=== PATIENT | male | born 1940 | race Asian ===

== ENCOUNTER 2019-04-29 08:09 | Outpatient (CLI) | payer MEDICARE, SELFPAY ==
--- NOTE | ~2019-04-29 | XR_ITS ---
XR abdomen/kub 1V DATE: 04/29/2019 08:35 INDICATION: Calcium kidney stone TECHNIQUE: AP projection, 2 views COMPARISON: 04/15/2019 KUB FINDINGS: There is no change of approximately 5 mm stone or stones overlying the lower pole of left k idney since 04/15/2019. Calcifications overlying the lower pole right kidney are less prominent compared to 04/15/2019 with mckeon ggestion of a small residual 2 mm calcification at this location. No apparent change of an approximat dino 3 mm faint calcification overlying the right renal hilar area or smaller faint linear calcificati on near right second lumbar vertebral right transverse process. There are 2 contiguous calcified phleboliths again noted overlying the right midabdomen. The psoas shadows are intact. No visceromegaly is evident. The bowel gas pattern is unremarkable, wit hout evidence of obstruction. Degenerative changes of the lumbar spine.. IMPRESSION: Diminished prominence of calcified calculus burden at lower pole of right kidney since Reviewed, dictated and finalized at [facility]. Reviewed, dictated and finalized at location B. EAR PROCESS ENGINEER IMPRESSION: Diminished prominence of calcified calculus burden at lower pole of right kidney since 04/15/2019
== END 2019-04-29 08:10 | disposition home or self-care (01) ==
LOC: ANHIMG 08:15
PROVIDERS: PCP Family Medicine; Visit Provider Urology
DX: N20.0 Calculus of kidney (principal)
CPT/HCPCS: 74018

== ENCOUNTER 2021-08-09 07:51 | Outpatient (CLI) | payer MEDICARE, SELFPAY ==
[2021-08-09 08:29] LABS: Alanine Aminotransferase 23 U/L (6-50); Albumin Level 3.9 g/dL (3.5-5.1); Alkaline Phosphatase 83 U/L (38-126); Anion Gap 4 mmol/L (8-16); Aspartate Amino Transferase 35 U/L (17-59); Bilirubin,Total 1.2 mg/dL (0.2-1.3); Blood Urea Nitrogen 12 mg/dL (9-20); Calcium 8.3 mg/dL (8.4-10.2); Carbon Dioxide 25 mmol/L (22-30); Chloride 106 mmol/L (98-107); Estimated Glomerular Filt Rate > 60; Glucose 94 mg/dL (65-110); Potassium 3.9 mmol/L (3.4-5.0); Sodium 135 mmol/L (137-145)
== END 2021-08-09 07:52 | disposition home or self-care (01) ==
LOC: ANHLAB 07:54
PROVIDERS: PCP Family Medicine; Visit Provider Family Medicine
DX: R73.09 Other abnormal glucose (principal); N20.0 Calculus of kidney; Z13.1 Encounter for screening for diabetes mellitus; E03.9 Hypothyroidism, unspecified
CPT/HCPCS: 36415; 80053

== ENCOUNTER 2022-03-27 14:50 | Outpatient (CLI) | payer MEDICARE, SELFPAY ==
--- NOTE | ~2022-03-27 | US_ITS ---
EXAMINATION: US abdomen limited DATE: 03/27/2022 15:35 INDICATION: Right upper quadrant abdominal pain. TECHNIQUE: Multiple grayscale and Doppler ultrasound images of the abdomen were obtained. COMPARISON: CT abdomen and pelvis 12/19/15 FINDINGS: The visualized portions of the head and body of the pancreas are normal. The liver is aisha l without focal lesion. There is normal flow in main portal vein. The gallbladder is contracted and c ontains a gallstone. No sonographic Ortega sign. The common duct is normal and measures 4 mm. IMPRESSION: 1. Cholelithiasis. No evidence of acute cholecystitis. Reviewed, dictated and finalized at location [facility]. LE HOUSE PUMPER
== END 2022-03-27 14:51 | disposition home or self-care (01) ==
PROVIDERS: PCP Family Medicine; Visit Provider Family Medicine
DX: R10.11 Right upper quadrant pain (principal); K80.20 Calculus of gallbladder without cholecystitis without obstruction
CPT/HCPCS: 76705

== ENCOUNTER 2022-04-04 10:48 | Outpatient (CLI) | payer MEDICARE, SELFPAY ==
[2022-04-04 11:18] LABS: Appearance Urine Clear (Clear); Bilirubin Urine Negative (Negative); Blood Urine Negative (Negative); Color Urine Yellow (Yellow); Glucose Urine UA Negative (Negative); Ketones Urine Negative (Negative); Leukocyte Esterase Ur Negative LEU/UL (Negative); Nitrate Urine Negative (Negative); Protein Urine Negative (Negative)
[2022-04-04 11:33] LABS: Mucus Urine Rare /lpf; RBC Urine 0-2 /hpf (0-2); Squamous Epithelial Cell Urine Rare /hpf (Few); WBC Urine 0-3 /hpf
[2022-04-04 11:42] LABS: Add Urine Microscopic? NO
== END 2022-04-04 10:49 | disposition home or self-care (01) ==
LOC: ANHLAB 10:50
PROVIDERS: PCP Family Medicine; Visit Provider Surgery
DX: R31.9 Hematuria, unspecified (principal)
CPT/HCPCS: 81003

== ENCOUNTER 2022-04-10 11:17 | Outpatient (CLI) | payer MEDICARE, SELFPAY ==
--- NOTE | ~2022-04-10 | CT_ITS ---
Non-contrast CT scan of the Abdomen and Pelvis Clinical indication: Abdominal pain Technique: 5 mm axial scans were obtained through the abdomen and pelvis without intravenous or oral contrast. Dose reduction technique was used on this scan by utilizing automated exposure control and iterative reconstruction technique. The dose-length product (DLP) was 348.10 mGy-cm. COMPARISON: 12/19/2015 Findings: Images through the lung bases reveal no abnormalities. The liver, spleen, pancreas, and adrenals appear normal. Nonobstructing bilateral renal stones are pr esent. Calcified gallstones are present. Distal abdominal aorta measures 3.1 cm in maximum diameter. There is marked, circumfemoral wall thickening of the cecum and ascending colon, with suggestion of p ossible associated large intraluminal mass. There is extensive pericolonic inflammatory change about this region. No abscess or free air. There is relative distention of the cecum, but small bowel loops are nondilated. There are probable mildly enlarged local pericolonic lymph nodes just medial to the cecum (axial image 68 for example). Images through the pelvis were performed. There is no evidence of ascites or lymphadenopathy. Urinary bladder unremarkable. Prostate gland and seminal vesicles are unremarkable. Impression: Marked wall thickening of the cecum and ascending colon with possible very subtly delineated large in traluminal mass. Findings are suspicious for colonic neoplasm/adenocarcinoma, although primary infect ious/inflammatory colitis is a potential alternative consideration. Mildly prominent pericecal lymph nodes. These could be reactive versus metastatic in nature. Relative distention of the cecum, but no small bowel loops are nondilated. Early large bowel obstruct ion with distended cecum is a potential consideration. Correlate with symptomatology. Cholelithiasis and bilateral nephrolithiasis. Reviewed, dictated and finalized at [facility]. COACH Impression: Marked wall thickening of the cecum and ascending colon with possible very subt ly delineated large intraluminal mass. Findings are suspicious for colonic neop lasm/adenocarcinoma, although primary infectious/inflammatory colitis is a pote ntial alternative consideration. Mildly prominent pericecal lymph nodes. These could be reactive versus metastat ic in nature. Relative distention of the cecum, but no small bowel loops are nondilated. Pierre y large bowel obstruction with distended cecum is a potential consideration. Co rrelate with symptomatology. Cholelithiasis and bilateral nephrolithiasis.
== END 2022-04-10 11:18 | disposition home or self-care (01) ==
PROVIDERS: PCP Family Medicine; Visit Provider Family Medicine
DX: R10.9 Unspecified abdominal pain (principal); R31.9 Hematuria, unspecified; Z85.038 Personal history of other malignant neoplasm of large intestine; K80.20 Calculus of gallbladder without cholecystitis without obstruction; N20.0 Calculus of kidney
CPT/HCPCS: 74176

== ENCOUNTER 2022-04-10 14:05 | Emergency (ER) | payer MEDICARE, SELFPAY ==
[2022-04-10 14:27] VITALS: BP 129/79; PULSE 83; RESP 18; TEMP 36.4; O2SAT 98
--- NOTE | 2022-04-10 16:59 | ED.ABDPAIN ---
HPI - Abdominal Pain General Chief Complaint: Abdominal Pain Stated Complaint: abnormal ct Time Seen by Provider: 04/10/22 16:59 Source: patient and family History of Present Illness HPI narrative: Patient is 81 years old Japanese male does not speak Croatian but having right abdominal pain for the last 3 weeks, had CT scan of the abdomen and pelvis ordered by his family physician today as outpatient which showed abnormality consistent with subtle not the left possible colon cancer. Patient had history of colon cancer, colon resection 1994 at [facility]. Patient denies any fever, chills, nausea, vomiting, diarrhea, constipation. Patient does not take medicine at home, does not smoke or drink or uses drugs. No history of allergy. Related Data Allergies Allergy/AdvReac Type Severity Reaction Status Date / Time No Known Allergies Allergy Unknown Verified 04/10/22 16:55 Review of Systems Review of Systems: All systems reviewed & are unremarkable except as noted in HPI and below PMFSH Past Medical History Medical History Achilles tendon tear Bilateral inguinal hernia H/O colon cancer, stage I Surgical History Surgical History H/O Achilles tendon repair H/O bilateral inguinal hernia repair History of colon resection Social History Social History Social History: Smoking status: Former smoker Tobacco type: cigarettes Second hand tobacco smoke exposure: No Smoking end date: 03/23/74 Alcohol intake: current Alcohol use details: Occasionally Substance use: never Substance use type: does not use Gender identity (if verbalized by the patient): Male Sexual Orientation (if Verbalized by the Patient): Straight or Heterosexual Exam Narrative: General appearance: Well-developed, well-nourished, patient does not look in pain or distress Skin: Normal color Head: Normocephalic, nontraumatic Eyes: Clear conjunctiva ENT: Oropharynx normal, ears normal, nose normal Neck: Supple, nontender Chest and respiratory: Airway patent, no respiratory distress, no accessory muscle use Heart: Regular rate/rhythm Abdomen: Soft, mild tenderness right mid abdomen, no guarding or rebound, no organomegaly, quiet bowel sounds Vascular: Normal peripheral pulses, normal capillary refill. Musculoskeletal: Normal range of motion, nontender back Neurologic: Alert and oriented ?3, SUPERVISOR ROAD ADMINISTRATOR is normal as tested, no gross motor deficit Course Consultations Consultation #1: DR SHANKAR Date: 04/10/22 Time: 18:03 Consultation #2: DR DON Patient can go home for outpatient colonoscopy on Thursday. Date: 04/10/22 Time: 18:03 Consultation #3: Dr. Kandy Rodriguez Date: 04/10/22 Time: 19:01 Vital Signs Vital signs: Vital Signs Temperature 36.4 C 04/10/22 14:27 Pulse Rate 83 04/10/22 14:27 Respiratory Rate 18 04/10/22 14:27 Blood Pressure 129/79 04/10/22 14:27 Pulse Oximetry 98 04/10/22 14:27 Oxygen Delivery Room Air 04/10/22 14:27 Temperature 36.4 C 04/10/22 14:27 Pulse Rate 83 04/10/22 14:27 Respiratory Rate 18 04/10/22 14:27 Blood Pressure 129/79 04/10/22 14:27 Pulse Oximetry 98 04/10/22 14:27 Oxygen Delivery Room Air 04/10/22 14:27 MDM - Abdominal Pain MDM Narrative Medical decision making narrative: Patient presents with CAT scan report showing possible colon cancer. History of colon cancer years ago, status postsurgery, possibly around 1994. Currently patient is not in pain or distress. Blood work-up today showed no significant abno
[2022-04-10 17:33] LABS: Basophils Percent Auto 0.4 % (0.2-1.2); Eosinophils Absolute Auto 0.1 K/mm3 (0-0.3); Eosinophils Percent Auto 0.6 % (0-4.4); Hematocrit 33.7 % (42.0-52.0); Hemoglobin 11.2 g/dL (14.0-18.0); Immature Granulocyte Absolute 0.04 K/mm3 (0.00-0.031); Immature Granulocyte Percent A 0.4 % (0-0.5); Lymphocytes Absolute Auto 1.81 K/mm3 (0.9-3.2); Mean Corpuscular HGB Conc 33.2 g/dl (32-36); Mean Corpuscular Hemoglobin 30.3 pg (26-34); Mean Corpuscular Volume 91.1 fl (80-100); Mean Platelet Volume 8.5 fl (7.4-10.4); Monocytes Absolute Auto 0.7 K/mm3 (0.1-0.6); Monocytes Percent Auto 6.9 % (2.6-8.5); Neutrophils Absolute Auto 6.9 K/mm3 (1.3-6.7); Neutrophils Percent Auto 72.7 % (45.5-73.1); Platelet Count Result 291 k/mm3 (150-375); Red Cell Distribution Width 13.8 % (11.5-14.5); White Blood Count 9.5 K/mm3 (4.5-10.0)
[2022-04-10] MEDS: SODIUM CHLORIDE 0.9% IV 1,000 ML 999 ML IV CONT (17:35)
[2022-04-10 17:46] LABS: Alanine Aminotransferase 25 U/L (6-50); Albumin Level 3.1 g/dL (3.5-5.1); Alkaline Phosphatase 83 U/L (38-126); Anion Gap 5 mmol/L (8-16); Aspartate Amino Transferase 32 U/L (17-59); Bilirubin,Total 0.6 mg/dL (0.2-1.3); Blood Urea Nitrogen 12 mg/dL (9-20); Calcium 7.7 mg/dL (8.4-10.2); Carbon Dioxide 27 mmol/L (22-30); Chloride 104 mmol/L (98-107); Estimated CRCL calculation 50 ml/min; Estimated Glomerular Filt Rate > 60; Glucose 100 mg/dL (65-110); Lactic Acid Reflex 2.1 mmol/L (0.7-2.0); Potassium 3.3 mmol/L (3.4-5.0); Sodium 136 mmol/L (137-145)
--- NOTE | 2022-04-10 17:50 | PC.NURSE ---
SPOKE WITH ANDREW DURAND'S DAUGHTER IN LAW AT [phone]. SHE STATES TO CALL IF ANY QUESTIONS OR CONCERNS
[2022-04-10 18:43] LABS: Appearance Urine Clear (Clear); Bilirubin Urine Negative (Negative); Blood Urine Negative (Negative); Color Urine Yellow (Yellow); Glucose Urine UA Negative (Negative); Ketones Urine Negative (Negative); Leukocyte Esterase Ur Negative LEU/UL (Negative); Nitrate Urine Negative (Negative); Protein Urine Negative (Negative); Specific Grav Ur 1.015 (1.001-1.035); pH Urine 6.5 (5.0-9.0)
[2022-04-10 19:02] LABS: Amorphous Sediment Urine Few; RBC Urine 0-2 /hpf (0-2); WBC Urine 0-3 /hpf
[2022-04-10 19:05] VITALS: BP 136/79; PULSE 70; RESP 16; O2SAT 100
[2022-04-10 19:16] LABS: Add Urine Microscopic? YES
[2022-04-10 20:30] LABS: Reflex Lactic Acid Yes or No Add Lactic
== END 2022-04-10 19:05 | disposition home or self-care (01) ==
PROVIDERS: Emergency Provider Emergency Medicine; PCP Family Medicine
DX: K63.89 Other specified diseases of intestine (principal); Z85.038 Personal history of other malignant neoplasm of large intestine; Z90.49 Acquired absence of other specified parts of digestive tract; Z87.891 Personal history of nicotine dependence
CPT/HCPCS: 36415; 74176; 80053; 81001; 83605; 85025; 96360; 99283; J7030

== ENCOUNTER 2022-04-14 00:15 | Day surgery (SDC) | payer MEDICARE, SELFPAY ==
[2022-04-11 11:27] VITALS: BMI 22.8
--- NOTE | 2022-04-11 11:33 | PM.HPGS ---
History of Present Illness History of Present Illness Consent: Risks, benefits, and alternatives have been discussed and questions answered. Patient agrees to proceed with procedure. Chief complaint: hx colon ca, abnormal radiology findings Narrative: Sterling Bryant is a 81 year old male with a history of colon cancer resected 13 years ago, has had abdominal pain for the past few weeks. A CT scan was done as an outpatient that showed: Marked wall thickening of the cecum and ascending colon with possible very subtly delineated large intraluminal mass. After was done, the patient was told by his primary care provider to go to the emergency room. The emergency room physician saw him, obtain blood work which was removed mostly within normal limits and apparently contacted surgery and Gastroenterology who all felt that he could be discharged to have his colonoscopy today Review of Systems Review of Systems: All systems reviewed & are unremarkable except as noted in HPI and below PMFSH Past Medical History Medical History Achilles tendon tear Bilateral inguinal hernia H/O colon cancer, stage I Surgical History Surgical History H/O Achilles tendon repair H/O bilateral inguinal hernia repair History of colon resection Social History Social History Social History: Smoking status: Former smoker Tobacco type: cigarettes Second hand tobacco smoke exposure: No Smoking end date: 03/23/74 Alcohol intake: current Alcohol use details: occasional Substance use: never Substance use type: does not use Living arrangements: with family Occupation/Education: retired Gender identity (if verbalized by the patient): Male Sexual Orientation (if Verbalized by the Patient): Straight or Heterosexual Spiritual care concerns: No Meds Home Medications and Allergies Home Medications Medication Instructions Recorded Confirmed Type dutasteride 0.5 mg capsule 0.5 mg PO DAILY #30 caps 04/10/22 04/11/22 Rx potassium chloride 20 mEq 20 meq PO BID #10 tabs 04/10/22 04/11/22 Rx tablet,extended release (K-Tab) tamsulosin 0.4 mg capsule 0.4 mg PO QHS #30 caps 04/10/22 04/11/22 Rx tramadol 50 mg tablet 50 mg PO Q6H PRN pain #20 tabs 04/10/22 04/11/22 Rx Allergies Allergy/AdvReac Type Severity Reaction Status Date / Time No Known Allergies Allergy Unknown Verified 04/11/22 12:49 Exam Const: General: alert Orientation/consciousness: patient oriented x3 Resp: Auscultation: clear to auscultation bilaterally Cardio: Rhythm: regular rhythm GI: GI Palp: Yes Soft to palpation and No Tenderness to palpation present (GI) Neuro: General: patient oriented x3 Assessment and Plan Assessment and plan (1) Abnormal CT of the abdomen: Code(s): R93.5 - Abnormal findings on diagnostic imaging of other abdominal regions, including retroperitoneum Status: Acute Assessment and Plan: Colonoscopy with possible biopsy or polypectomy or cautery or injection of substances.
[2022-04-14 12:13] VITALS: BP 117/74; PULSE 89; RESP 18; TEMP 36.6; O2SAT 100
[2022-04-14] MEDS: LACTATED RINGERS 1,000 ML 150 ML IV CONT (12:23)
--- NOTE | 2022-04-14 13:11 | WPDANESEPPF ---
Anes - Initial Pre Proc Eval Procedure: Operation Date: 04/14/22 13:30 Proposed Procedures p Colonoscopy - Jeramy Art MD Date/Time: 04/14/22 13:11 Surgeon: Jeramy Art MD Pre Op Diagnosis: hx colon ca, abnormal radiology findings Patient Data Age: 81 Gender: M Height: 1.73 m Weight: 66.2 kg Last Vital Signs Temp 97.8 F 04/14/22 12:13 Pulse 89 04/14/22 12:13 Resp 18 04/14/22 12:13 BP 117/74 04/14/22 12:13 Pulse Ox 100 04/14/22 12:13 O2 Del Method Room Air 04/14/22 12:13 Allergies Allergy/AdvReac Type Severity Reaction Status Date / Time No Known Allergies Allergy Unknown Verified 04/11/22 12:49 Home Medications Medication Instructions Recorded Confirmed Type dutasteride 0.5 mg capsule 0.5 mg PO DAILY #30 caps 04/10/22 04/11/22 Rx potassium chloride 20 mEq 20 meq PO BID #10 tabs 04/10/22 04/11/22 Rx tablet,extended release (K-Tab) tamsulosin 0.4 mg capsule 0.4 mg PO QHS #30 caps 04/10/22 04/11/22 Rx tramadol 50 mg tablet 50 mg PO Q6H PRN pain #20 tabs 04/10/22 04/11/22 Rx Patient hx anesthesia problems: none Family hx anesthesia problems: none Results Review: All pre-operative results and documents have been reviewed as part of the pre-operative evaluation. ON LICENSE OF [facility] Past Medical History Medical History Achilles tendon tear Bilateral inguinal hernia H/O colon cancer, stage I Surgical History Surgical History H/O Achilles tendon repair H/O bilateral inguinal hernia repair History of colon resection Social History Social History Social History: Smoking status: Former smoker Tobacco type: cigarettes Second hand tobacco smoke exposure: No Smoking end date: 03/23/74 Alcohol intake: current Alcohol use details: occasional Substance use: never Substance use type: does not use Living arrangements: with family Occupation/Education: retired Gender identity (if verbalized by the patient): Male Sexual Orientation (if Verbalized by the Patient): Straight or Heterosexual Spiritual care concerns: No Anes - Eval Final PreProcedure Day of Procedure 04/14/22 13:11 Patient weight: normal Heart: regular rate and rhythm Lungs: clear to auscultation Airway: Mallampati scale class II Neurological: alert and oriented Last oral intake: >/= 8 hours ASA classification: III Emergent: no Anesthetic plan: proceed Anesthesia type and monitoring: general GIVS and standard monitoring Results Review: All pre-operative results and documents have been reviewed as part of the pre-operative evaluation. Informed Consent: The patient's anesthetic plan and its attendant risks and benefits were discussed with the patient/family/POA. Questions were solicited and answers provided to the satisfaction of the patient/family/POA.
[2022-04-14 14:18] VITALS: BP 90/60; PULSE 64; RESP 17; O2SAT 95
[2022-04-14 14:28] VITALS: BP 109/66; PULSE 58; RESP 18; O2SAT 99
[2022-04-14 14:38] VITALS: BP 147/72; PULSE 62; RESP 14; O2SAT 100
== END 2022-04-14 14:54 | disposition home or self-care (01) ==
PROVIDERS: PCP Family Medicine; Visit Provider Internal Medicine Gastroenterology
PROC: 0DJD8ZZ Inspection of Lower Intestinal Tract, Via Natural or Artificial Opening Endoscopic (ICD-10-PCS; CPT 45378; principal; 2022-04-14 13:30)
DX: C18.2 Malignant neoplasm of ascending colon (principal); K57.30 Diverticulosis of large intestine without perforation or abscess without bleeding; K64.8 Other hemorrhoids; Z87.891 Personal history of nicotine dependence
CPT/HCPCS: 45380; 45381; 88305; J2001; J2704; J7120

== ENCOUNTER 2022-04-21 13:04 | Outpatient (CLI) | payer MEDICARE, SELFPAY ==
--- NOTE | ~2022-04-21 | CT_ITS ---
EXAMINATION: CT chest abdomen pelvis w con DATE: 04/21/2022 13:50 INDICATION: Cecal cancer TECHNIQUE: Transaxial computed tomographic images of the chest, abdomen, and pelvis were obtained aft er the administration of 100 cc of Omnipaque 350 intravenous contrast. The dose-length product (DLP) was 703.75 mGy-cm. Automated exposure control and iterative reconstruction technique were employed. COMPARISON: 04/10/2022 FINDINGS: CHEST CT: There is dependent atelectasis. No pleural effusion or pneumothorax. The heart size is normal. There are no pathologically enlarged thoracic lymph nodes. Calcified coronary artery atherosclerosis is not ed. There is mild thoracic spondylosis. ABDOMEN/PELVIS CT: The liver, spleen, pancreas, and left adrenal gland are normal. 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 Stones are present in the gallbladder whi ch is contracted. There is a 3 mm nonobstructing stone of the right kidney. Nonobstructing stones of the left kidney measure up to 4 mm. There is irregular wall thickening of the ascending colon with mckeon rrounding pericolic fat stranding. There are mildly enlarged mesenteric lymph nodes adjacent to the a scending colon which measure up to 11 mm. There is no free intraperitoneal gas or evidence of bowel o bstruction. A surgical anastomosis is noted at the rectosigmoid junction. There is mild lumbar spondy losis. IMPRESSION: 1. Irregular wall thickening of the ascending colon, consistent with malignancy. 2. Mildly enlarged adjacent mesenteric lymph nodes, likely metastatic disease. No thoracic metastatic disease identified. Reviewed, dictated and finalized at location B. PLOYMENT CLAIMS ADJUDICATOR IMPRESSION: 1. Irregular wall thickening of the ascending colon, consistent with malignancy . 2. Mildly enlarged adjacent mesenteric lymph nodes, likely metastatic disease. No thoracic metastatic disease identified.
== END 2022-04-21 13:05 | disposition home or self-care (01) ==
PROVIDERS: PCP Family Medicine; Visit Provider Surgery
DX: C18.0 Malignant neoplasm of cecum (principal); R59.0 Localized enlarged lymph nodes
CPT/HCPCS: 71260; 74177; Q9967

== ENCOUNTER 2022-04-21 13:49 | Outpatient (CLI) | payer MEDICARE, SELFPAY ==
--- NOTE | 2022-04-21 14:48 | ECG_ITS ---
Measurements Intervals [place] Rate: 67 P: 11 IL: 230 QRS: -18 QRSD: 96 T: 46 QT: 417 QTc: 442 Interpretive Statements SINUS RHYTHM WITH FIRST DEGREE AV BLOCK BASELINE ARTIFACT- I, II, III, AVR, AVL, AVF ABNORMAL ECG NO PREVIOUS ECG AVAILABLE FOR COMPARISON Electronically Signed On 04-21-2022 15:14:03 PATTERNMAKER APPRENTICE METAL by Rachid Stevenson D.O.
== END 2022-04-21 13:50 | disposition home or self-care (01) ==
LOC: ANHSURGERY 13:54
PROVIDERS: PCP Family Medicine; Visit Provider Surgery
DX: Z01.818 Encounter for other preprocedural examination (principal); R94.31 Abnormal electrocardiogram [ECG] [EKG]; I44.0 Atrioventricular block, first degree; Z85.038 Personal history of other malignant neoplasm of large intestine
CPT/HCPCS: 36415; 80156; 86850; 86900; 86901; 93005

== ENCOUNTER 2022-04-23 18:27 | Inpatient (IN) | payer MEDICARE, SELFPAY ==
[2022-04-21 13:45] VITALS: BMI 23.3
--- NOTE | 2022-04-21 13:46 | PC.NURSE ---
PRE-OP INSTRUCTIONS, PLEASE READ CAREFULLY Report to the Outpatient Waiting Room, entrance under the green pavilion located off [facility], at time _12:30 PM_ on date _04/23/22_. Planned Procedure Time: _2:30 PM_. Time changes happen often and if your time is changed the preop area will call you the afternoon before. - You and your visitor will be asked to self-screen and do not enter if you have any COVID symptoms. - Only one visitor is requested with a max of two and NO children visitors are allowed at this time. - The patient visitor may be requested to leave or wait in car when not with patient due to distancing restrictions. - A mask is optional within the hospital at this time. -VISITING HOURS 8AM-8PM, LIMIT OF 2 VISITORS AT A TIME Patients may have clear liquids (water, carbonated beverages, clear teas, apple juice) until 3 hours prior to surgery (1130 AM) with a maximum of 20 ounces. - No food from midnight until time of surgery Take the following medications with a SIP of water the morning of surgery: _TRAMADOL IF NEEDED FOR PAIN_ DO NOT STOP ANY OF YOUR OTHER PRESCRIPTION MEDICATIONS PRIOR TO SURGERY ?EXCEPT THE FOLLOWING Medications to discontinue per physician _NONE_, Date to take last dose Please no make-up, nail malay, hairspray, perfume, deodorant, or body powder the day of surgery. No jewelry (including any body piercings) or valuables the day of surgery, leave them at home. Please take a shower or bath the night before, or the morning of, surgery with an antibacterial soap. Wear comfortable, loose fitting clothing. - Jewelry must be removed prior to entering the operating room. Rings and piercings that are not removed may be cut off. - The hospital will not accept responsibility for valuables. - Please leave all valuables, including medications, at home the day of surgery. If you are going home after surgery, a licensed entry level truck driver must drive you home. - NO public transportation without another adult if you receive anesthesia. - We recommend that an adult stay with you for 24 hours following discharge. - We also recommend that you do not drive, make important decision, drink alcoholic beverages, or take any drugs that were not prescribed by your health care provider for at least 24 hours after your discharge time. Follow any additional instructions given to you from your surgeon. DIET, BOWEL PREP, PRE-OP ANTIBIOTICS, HIBICLENS SHOWER DAY BEFORE AND AM OF SURGERY If you or anyone in your household have experienced Covid symptoms in the past week, please notify your surgeon or the nurse liaison at the phone number below for possible testing. Instructions given to _PATIENT & SON (ANDER)_and asked if any additional questions and then verbalized understanding. Patient advised to call surgeon office or pre surgery nurse liaison [phone] if any additional questions.
[2022-04-23] VITALS (12 sets, daily range): BP systolic 93–131; BP diastolic 58–83; PULSE 58–75; RESP 11–16; TEMP 35.7–36.5; O2SAT 100
--- NOTE | 2022-04-23 13:04 | WPDANESEPPF ---
Anes - Initial Pre Proc Eval Procedure: Operation Date: 04/23/22 14:30 Proposed Procedures p Hand Assisted Laparoscopic Right Hemicolectomy - Ernesto Graham DO Date/Time: 04/23/22 13:04 Surgeon: Ernesto Graham DO Pre Op Diagnosis: ascending colon CA Patient Data Age: 81 Gender: M Height: 1.71 m Weight: 68.5 kg Allergies Allergy/AdvReac Type Severity Reaction Status Date / Time No Known Allergies Allergy Unknown Verified 04/23/22 12:52 Home Medications Medication Instructions Recorded Confirmed Type dutasteride 0.5 mg capsule 0.5 mg PO DAILY #30 caps 04/10/22 04/21/22 Rx tamsulosin 0.4 mg capsule 0.4 mg PO QHS #30 caps 04/10/22 04/21/22 Rx tramadol 50 mg tablet 50 mg PO Q6H PRN pain #20 tabs 04/10/22 04/21/22 Rx ciprofloxacin HCl 500 mg tablet See Rx Instructions .Route 04/21/22 04/21/22 Rx .COMPLEX #1 tablet metronidazole 500 mg tablet See Rx Instructions .Route 04/21/22 04/21/22 Rx .COMPLEX #3 tabs polyethylene glycol 3350 17 gram 17 g PO DAILY PRN Constipation 04/21/22 04/21/22 History oral powder packet (Miralax) Patient hx anesthesia problems: none Family hx anesthesia problems: none Results Review: All pre-operative results and documents have been reviewed as part of the pre-operative evaluation. [facility], LAT[facility] Past Medical History Medical History Achilles tendon tear Bilateral inguinal hernia H/O colon cancer, stage I Surgical History Surgical History H/O Achilles tendon repair H/O bilateral inguinal hernia repair History of colon resection Social History Social History Social History: Smoking packs per day: 0.5 Smoking cigarettes per day: 10.0 Years smoked: 20 Smoking pack-years: 10.00 Smoking status: Former smoker Tobacco type: cigarettes Second hand tobacco smoke exposure: No Smoking end date: 03/23/79 Alcohol intake: current Alcohol use details: 1-2/WEEK Substance use: never Substance use type: does not use Living arrangements: with family Occupation/Education: retired Gender identity (if verbalized by the patient): Male Sexual Orientation (if Verbalized by the Patient): Straight or Heterosexual Spiritual care concerns: No Anes - Eval Final PreProcedure Day of Procedure 04/23/22 13:04 Patient weight: normal Heart: regular rate and rhythm Lungs: clear to auscultation Airway: Mallampati scale class II Neurological: alert and oriented Last oral intake: >/= 8 hours ASA classification: III Emergent: no Anesthetic plan: proceed Anesthesia type and monitoring: general ETT and standard monitoring Results Review: All pre-operative results and documents have been reviewed as part of the pre-operative evaluation. Informed Consent: The patient's anesthetic plan and its attendant risks and benefits were discussed with the patient/family/POA. Questions were solicited and answers provided to the satisfaction of the patient/family/POA.
[2022-04-23] MEDS: ACETAMINOPHEN 500 MG TABLET 1000 MG PO ×2 (13:13→19:07)
[2022-04-23] MEDS: LACTATED RINGERS 1,000 ML 30 ML IV CONT ×2 (13:24→16:59)
[2022-04-23] MEDS: KETOROLAC 15 MG/ML VIAL (*BKC) IV PUSH (13:25)
--- NOTE | 2022-04-23 13:42 | WPDHPUPDATE1 ---
History and Physical Update Update Date/Time: 04/23/22 13:42 History and Physical has been reviewed, including an updated exam of the patient. There are NO changes in the patient's condition. Risks, benefits, and alternatives have been discussed and questions answered. Patient agrees to proceed with procedure.
[2022-04-23] MEDS: ceFAZolin 2 GM/D5W 50 ML 2 GM/50 ML BAG IVPB ×2 (13:53→22:01)
[2022-04-23] MEDS: metroNIDAZOLE 500 MG/ISO 100ML 500 MG/100 ML BAG 100 MG IVPB ×2 (14:02→23:33)
[2022-04-23 14:50] LABS: Carcinoembryonic Antigen 18.3 ng/mL (0.0-3.0)
[2022-04-23] MEDS: INDOCYANINE GREEN 25 MG VIAL 3.75 MG IV PUSH (16:34)
--- NOTE | 2022-04-23 16:55 | W.PM.PROC2 ---
Procedure Note - Detailed Date of Procedure 04/23/22 Pre-op Diagnosis ascending colon CA Post-op Diagnosis Same Procedure Performed 1. Hand assisted laparoscopic right hemicolectomy with ileocolic anastomosis 2. Small bowel resection with side to side anastomosis 3. Extensive adhesiolysis requiring greater than 60 minutes of operating time Surgeon Ernesto Graham DO Motor Coach Operator Tessa Rojas NP Anesthesia General and Local (Exparel) Indications This is an 81-year-old man who presented with a recent finding of ascending colon adenocarcinoma. He was experiencing right-sided abdominal pain and had poor appetite was losing weight. A CT of his abdomen and pelvis was performed and this showed evidence of a large mass in the ascending colon suspicious for adenocarcinoma. He then underwent colonoscopy and biopsies confirmed adenocarcinoma. There were no signs of distant metastases but the lymph nodes around the mass did appear slightly enlarged. His CEA level was slightly elevated at 18.3. Discussions were made with the patient about treatment options and decision was made to proceed with hand assisted laparoscopic right hemicolectomy, possible open. Findings Hand assisted laparoscopic right hemicolectomy was performed. The patient had dense adhesions around the mass as well as in the pelvis and the right lower quadrant. The ileum appeared to be densely adherent to the pelvis and I did encounter an area that was so heavily scarred up that an enterotomy was inadvertently made. This was inherent to the procedure and the amount of scar tissue we had from his prior surgeries. Once all these adhesions were taken down I was able to run the entire small intestine and this appeared to be involving a 6 in segment of ileum but the remainder of the small bowel appeared free of adhesions. An ileal resection with [id number] ileal anastomosis was performed. I then also noticed that the descending colon from his prior colon resection appeared adherent up near the mass as well. There still appeared to be a plane between the mass and the descending colon and I was able to take these adhesions down to free up the descending colon from this area. The mass was very large which required me to extend the hand port incision about 3 cm further cephalad to extract it. Right hemicolectomy was then performed with a [id number] ileocolic anastomosis. Indocyanine green was used at the conclusion of the procedure to confirm adequate perfusion to the anastomosis. The procedure was very difficult due to the adhesions and to some bleeding from a gastroepiploic branch vein. Blood loss was 750 mL which is 10 times normal amount for a straightforward right hemicolectomy. Total operating time was 2 hours and 38 minutes and about 70 minutes of this was spent performing adhesiolysis. I was eventually able to suture ligate the bleeding vein once it was adequately identified and isolated. At the conclusion of the procedure no further bleeding was identified. Description of Procedure Procedure as well as risks benefits and alternatives were explained to the patient. Written consent was obtained and placed in chart prior to procedure. Patient was brought back to surgical suite. He was placed supine on operating table. Time-out was done to confirm patient procedure. He was then intubated by the anesthesia department. His abdomen was prepped and draped in sterile fashion using chlorhexidine prep. A 7 centimeter vertical incision was made just superior to the umbilicus using a 15 blade scalpel. Electrocautery was used for hemostasis and for dissection down through Olag's fascia. The linea alba was identified, and incised using electrocautery. Two Josy clamps were used to lift the fascia anteriorly, and the peritoneum was then entered using electrocautery. The abdomen was inspected and no acute abnormalities were noted. The wound protector was placed at this incision, and the GelPort was
[2022-04-23 17:30] LABS: Hematocrit 23.9 % (42.0-52.0); Hemoglobin 7.8 g/dL (14.0-18.0)
[2022-04-23] MEDS: fentaNYL CITRATE INJ (*CRX) 100 MCG/2 ML VIAL 25 MCG IV PUSH ×3 (17:33→18:16)
--- NOTE | 2022-04-23 17:49 | SUR.PHASEI ---
1745- notified Dr. Mac of patients H/H results. new orders received.
--- NOTE | 2022-04-23 18:40 | ADMGEN ---
This patient, Sterling Bryant, was admitted to [facility] Surg Room 313-01. Patient/family oriented to hospital policies and general routines including ID bracelet, bed and alarms, visiting hours, pain management, procedures, bathroom and other care routines, personal items, smoking policy, room service/diet, and visiting hours. Information on how to activate the Rapid Response Team has been discussed. Patient/Family are encouraged to report perceived risks to care and to ask questions if they do not understand what they are told or what they should do.
[2022-04-23] MEDS: LACTATED RINGERS 1,000 ML 100 ML IV CONT (18:52)
--- NOTE | 2022-04-23 19:58 | PC.NURSE ---
ordered aqua k pad r/t back pain pt refused oxycodone, and called central supply for machine
[2022-04-23] MEDS: TAMSULOSIN HCL 0.4 MG CAPSULE PO (20:41)
--- NOTE | 2022-04-23 22:10 | PC.NURSE ---
informed lab assistance MD dailey called for H&H resulted, lab assistance to draw labs
[2022-04-23 22:38] LABS: Hematocrit 23.8 % (42.0-52.0); Hemoglobin 7.7 g/dL (14.0-18.0)
--- NOTE | 2022-04-23 23:55 | PC.NURSE ---
H&H 7.7 and 2.8 reported to MD dailey
[2022-04-24 00:30] VITALS: BP 115/70; PULSE 73; RESP 17; TEMP 36.4; O2SAT 99
[2022-04-24] MEDS: LACTATED RINGERS 1,000 ML 100 ML IV CONT ×2 (04:52→14:17)
[2022-04-24] MEDS: ACETAMINOPHEN 500 MG TABLET 1000 MG PO ×3 (05:05→17:50)
[2022-04-24] MEDS: ceFAZolin 2 GM/D5W 50 ML 2 GM/50 ML BAG IVPB (05:05)
--- NOTE | 2022-04-24 05:26 | PC.NURSE ---
pt up to chair this shift, ambulated x2 assist. Refused to remove nolan at this time.
[2022-04-24] MEDS: metroNIDAZOLE 500 MG/ISO 100ML 500 MG/100 ML BAG 100 MG IVPB ×2 (05:42→14:13)
--- NOTE | 2022-04-24 05:46 | PC.NURSE ---
reeducated pt and son about voiding trail and removing nolan this am, son concerned pt has prostate issues and would like to keep nolan at this time.
[2022-04-24 06:00] VITALS: BP 110/65; PULSE 60; RESP 17; TEMP 36.3; O2SAT 98
[2022-04-24 06:16] LABS: Basophils Percent Auto 0.2 % (0.2-1.2); Hematocrit 27.1 % (42.0-52.0); Hemoglobin 8.8 g/dL (14.0-18.0); Immature Granulocyte Absolute 0.04 K/mm3 (0.00-0.031); Immature Granulocyte Percent A 0.4 % (0-0.5); Lymphocytes Absolute Auto 2.36 K/mm3 (0.9-3.2); Lymphocytes Percent Auto 21.5 % (18.3-44.2); Mean Corpuscular HGB Conc 32.5 g/dl (32-36); Mean Corpuscular Hemoglobin 30.2 pg (26-34); Mean Corpuscular Volume 93.1 fl (80-100); Mean Platelet Volume 8.6 fl (7.4-10.4); Monocytes Absolute Auto 0.6 K/mm3 (0.1-0.6); Monocytes Percent Auto 5.2 % (2.6-8.5); Neutrophils Percent Auto 72.7 % (45.5-73.1); Platelet Count Result 300 k/mm3 (150-375); Red Blood Count 2.91 M/mm3 (4.6-6.20); Red Cell Distribution Width 14.6 % (11.5-14.5)
[2022-04-24 06:34] LABS: Chloride 104 mmol/L (98-107)
[2022-04-24 07:01] LABS: Anion Gap 1 mmol/L (8-16); Blood Urea Nitrogen 8 mg/dL (9-20); Calcium 7.4 mg/dL (8.4-10.2); Carbon Dioxide 26 mmol/L (22-30); Estimated CRCL calculation 59 ml/min; Estimated Glomerular Filt Rate > 60; Glucose 121 mg/dL (65-110); Potassium 3.9 mmol/L (3.4-5.0); Sodium 131 mmol/L (137-145)
[2022-04-24] MEDS: DUTASTERIDE 0.5 MG CAPSULE PO (08:45)
[2022-04-24] MEDS: ENOXAPARIN 40 MG/0.4 ML SYRINGE SUB-Q (08:45)
--- NOTE | 2022-04-24 10:00 | WPDANESPN ---
Anes - Prog Note Post-Op Date/Time: 04/24/22 10:00 Cardiovascular status: normal Respiratory status: normal Airway patency: baseline Mental status: baseline Post-Op hydration status: normal Vital Signs: Last Vital Signs Temp 36.3 C L 04/24/22 06:00 Pulse 60 04/24/22 06:00 Resp 17 04/24/22 06:00 BP 110/65 04/24/22 06:00 Pulse Ox 98 04/24/22 06:00 O2 Del Method Room Air 04/23/22 20:00 O2 Flow Rate 2 04/23/22 18:15 Pain Score (VAS): 0 I/O: Intake & Output 04/23/22 04/24/22 04/24/22 23:59 07:59 15:59 Intake Total 100 1100 Output Total 260 Balance -160 1100 Laboratory Tests 04/24/22 05:52 04/24/22 05:52 04/23/22 04/23/22 04/23/22 13:08 17:19 22:28 WBC RBC Hgb 7.8 L D Hct 23.9 L MCV MCH MCHC RDW Plt Count MPV Immature Gran % (Auto) Neut % (Auto) Lymph % (Auto) [place] % (Auto) Eos % (Auto) Baso % (Auto) Lymph # (Auto) [place] # (Auto) Eos # (Auto) Baso # (Auto) Abs Immat Gran (auto) Absolute Neuts (auto) Absolute Nucleated RBC Nucleated RBC % Sodium Potassium Chloride Carbon Dioxide Anion Gap BUN Creatinine Estim Creat Clear Calc Estimated GFR Glucose Calcium Carcinoembryonic Ag 18.3 H Blood Type A Positive Antibody Screen Negative 04/23/22 04/24/22 04/24/22 22:28 05:52 05:52 WBC 11.0 H RBC 2.91 L Hgb 7.7 L 8.8 L Hct 23.8 L 27.1 L MCV 93.1 MCH 30.2 MCHC 32.5 RDW 14.6 H Plt Count 300 MPV 8.6 Immature Gran % (Auto) 0.4 Neut % (Auto) 72.7 Lymph % (Auto) 21.5 [place] % (Auto) 5.2 Eos % (Auto) 0.0 Baso % (Auto) 0.2 Lymph # (Auto) 2.36 [place] # (Auto) 0.6 Eos # (Auto) 0.0 Baso # (Auto) 0.0 Abs Immat Gran (auto) 0.04 H Absolute Neuts (auto) 8.0 H Absolute Nucleated RBC 0.0 Nucleated RBC % 0.0 Sodium 131 L Potassium 3.9 Chloride 104 Carbon Dioxide 26 Anion Gap 1 L BUN 8 L Creatinine 0.80 Estim Creat Clear Calc 59 Estimated GFR > 60 Glucose 121 H Calcium 7.4 L Carcinoembryonic Ag Blood Type Antibody Screen Post-procedural complaints: none Patient Feedback: Patient satisfied with anesthetic care.
--- NOTE | 2022-04-24 13:03 | PM.PNGS ---
Progress Note: A&P Assessment and Plan (1) Primary adenocarcinoma of ascending colon: Code(s): C18.2 - Malignant neoplasm of ascending colon Status: Acute Assessment and Plan: Post-op day 1 from JERMAINE right hemicolectomy, small bowel resection, and extensive adhesiolysis. Overall his surgery was difficult and he had a fair amount of blood loss compared to a straightforward right hemicolectomy. Hgb checked in post-op and again last night with hgb dropping down to 7.7 from 11.2 pre-op. Hgb this morning 8.8 and he is hemodynamically stable. Continue to monitor. Will keep on clear liquids today Encouraged to get up to the chair today and ambulate as tolerated. Repeat labs tomorrow. Pathology pending. (2) BPH associated with nocturia: Code(s): N40.1 - Benign prostatic hyperplasia with lower urinary tract symptoms; R35.1 - Nocturia Status: Acute Assessment and Plan: Restarted on his home medications. May remove his urinary catheter in the next 1-2 days. Plan I have discussed the patient's case and plan of care with Dr. Graham. Subjective Subjective Date/Time Seen: 04/24/22 13:03 Patient reports: tolerating liquids well, no flatus, no bowel movement and afebrile Interval history: Patient seen with his son, Theodore, at the bedside. He reports feeling sore at his incisions, which has been controlled with Tylenol. He was up to the chair this morning and is now back in bed. He is tolerating clear liquids without any nausea or bloating. No flatus. No other complaints at this time. Review of Systems Review of Systems: All systems reviewed & are unremarkable except as noted in HPI and below Constitutional: Constitutional: Reports as per HPI, Reports no additional constitutional complaints, Denies chills and Denies fever(s) Cardiovascular: Cardiovascular: Reports no additional cardiovascular complaints, Denies chest pain and Denies leg edema Respiratory: Respiratory: Reports no additional respiratory complaints, Denies cough and Denies dyspnea Gastrointestinal: Gastrointestinal: Reports as per HPI and Reports no additional gastrointestinal complaints Neurologic: Reports system reviewed and no additional complaints, except as documented, Denies Abnormal speech present, Denies headache(s) and Denies focal weakness Exam Const: General: comfortable, no acute distress and awake Orientation/consciousness: patient oriented x3 Cardio: Rhythm: regular rhythm GI: Inspection: non-distended and incision (incisions dry and intact) GI Palp: Yes Soft to palpation, Yes Tenderness to palpation present (GI) (expected incisional tenderness) and No Guarding due to palpation present (GI) Auscultation: Hypoactive bowel sounds present Neuro: General: moves all extremities and no focal motor deficits Extrem: General: no calf tenderness and no edema Psych: Mental Status: mental status grossly normal Insight: Good insight present (Psych) Objective Data Vital Signs Vital Signs: Vital Signs - 24 hr 04/23/22 13:31 04/23/22 17:07 04/23/22 17:15 Temperature 97.7 F 97.5 F L Pulse Rate 71 64 58 L Respiratory Rate 16 12 11 L Blood Pressure 130/68 93/58 L 128/75 Pulse Oximetry 100 100 100 Oxygen Delivery Room Air Simple Face Mask Simple Face Mask Oxygen Flow Rate 8 8 04/23/22 17:30 04/23/22 17:45 04/23/22 18:00 Temperature Pulse Rate 61 63 67 Respiratory Rate 12 11 L 11 L Blood Pressure 131/68 121/74 112/73 Pulse Oximetry 100 100 100 Oxygen Delivery Simple Face Mask Nasal Cannula Nasal Cannula Oxygen Flow Rate 8 2 2 04/23/22 18:15 04/23/22 19:09 04/23/22 18:48 Temperature 97.0 F L Pulse Rate 75 72 Respiratory Rate 11 L 16 Blood Pressure 111/72 122/80 Pulse Oximetry 100 100 Oxygen Delivery Nasal Cannula Room Air Oxygen Flow Rate 2 04/23/22 19:03 04/23/22 19:12 04/23/22 20:12 Temperature 96.9 F L 96.2 F L 96.9 F L Pulse Rate 69 74 71 Respiratory Rate 16 16 16 Blood Pressu
[2022-04-24 14:00] VITALS: BP 109/62; PULSE 66; RESP 16; TEMP 36.6; O2SAT 98
[2022-04-24] MEDS: TAMSULOSIN HCL 0.4 MG CAPSULE PO (19:42)
[2022-04-24 20:00] VITALS: O2SAT 98
--- NOTE | 2022-04-24 20:52 | PC.NURSE ---
pt family c/o air about 1inch going into pt, informed BUSINESS PERFORMANCE ANALYST Rhonda. Re-educated pt and family about concern.
[2022-04-24 22:00] VITALS: BP 114/72; PULSE 66; RESP 14; TEMP 36.4; O2SAT 99
[2022-04-25] MEDS: LACTATED RINGERS 1,000 ML 100 ML IV CONT ×3 (01:00→20:22)
[2022-04-25] MEDS: ACETAMINOPHEN 500 MG TABLET 1000 MG PO ×3 (05:56→17:12)
[2022-04-25 06:00] VITALS: BP 118/63; PULSE 62; RESP 14; TEMP 36.3; O2SAT 98
[2022-04-25 06:21] LABS: Hemoglobin 7.1 g/dL (14.0-18.0); Mean Corpuscular HGB Conc 32.3 g/dl (32-36); Mean Corpuscular Hemoglobin 30.3 pg (26-34); Mean Platelet Volume 8.7 fl (7.4-10.4); Platelet Count Result 259 k/mm3 (150-375); Red Blood Count 2.34 M/mm3 (4.6-6.20); Red Cell Distribution Width 14.6 % (11.5-14.5); White Blood Count 8.5 K/mm3 (4.5-10.0)
[2022-04-25 06:34] LABS: Anion Gap -1 mmol/L (8-16); Blood Urea Nitrogen 12 mg/dL (9-20); Calcium 6.9 mg/dL (8.4-10.2); Carbon Dioxide 29 mmol/L (22-30); Chloride 110 mmol/L (98-107); Estimated CRCL calculation 59 ml/min; Estimated Glomerular Filt Rate > 60; Glucose 94 mg/dL (65-110); Potassium 3.6 mmol/L (3.4-5.0); Sodium 138 mmol/L (137-145)
[2022-04-25] MEDS: ENOXAPARIN 40 MG/0.4 ML SYRINGE SUB-Q (10:38)
[2022-04-25] MEDS: DUTASTERIDE 0.5 MG CAPSULE PO (10:38)
--- NOTE | 2022-04-25 11:11 | PM.PNGS ---
Progress Note: A&P Assessment and Plan (1) Primary adenocarcinoma of ascending colon: Code(s): C18.2 - Malignant neoplasm of ascending colon Status: Acute Assessment and Plan: doing well, FALLON goss, encourage OOB/IS, recheck H/H in am Subjective Subjective Date/Time Seen: 04/25/22 11:11 feels better today, decreased pain, small BM this morning Review of Systems Review of Systems: All systems reviewed & are unremarkable except as noted in HPI and below Exam Const: General: cooperative, comfortable and no acute distress Resp: Auscultation: clear to auscultation bilaterally Cardio: Rate: regular rate Rhythm: regular rhythm GI: Inspection: normal to inspection, non-distended and incision GI Palp: Yes abdominal tenderness, Yes Soft to palpation, Yes Tenderness to palpation present (GI), No Guarding due to palpation present (GI) and No Rigid due to palpation Objective Data Vital Signs Vital Signs: Vital Signs - 24 hr 04/24/22 14:00 04/24/22 20:00 04/24/22 22:00 Temperature 36.6 C 36.4 C L Pulse Rate 66 66 Respiratory Rate 16 14 Blood Pressure 109/62 114/72 Pulse Oximetry 98 98 99 Oxygen Delivery Room Air 04/25/22 06:00 Temperature 36.3 C L Pulse Rate 62 Respiratory Rate 14 Blood Pressure 118/63 Pulse Oximetry 98 Oxygen Delivery Intake/Output Intake/Output: Intake & Output 04/22/22 04/23/22 04/24/22 04/25/22 23:59 23:59 23:59 23:59 Intake Total 250 3360 1999 Output Total 260 1000 Balance -10 2360 1999 Meds/Results Medications: Active Medications Generic Name Dose Route Start Last Admin Trade Name Freq PRN Reason Stop Dose Admin Acetaminophen 1,000 mg 04/23/22 18:27 04/25/22 05:56 Acetaminophen 500 Mg Tablet PO 1,000 mg Q6HR CORINNE Administration Dutasteride 0.5 mg 04/24/22 09:00 04/25/22 10:38 Dutasteride 0.5 Mg Capsule PO 0.5 mg DAILY CORINNE Administration Enoxaparin Sodium 40 mg 04/24/22 09:00 04/25/22 10:38 Enoxaparin 40 Mg/0.4 Ml Syringe SUB-Q 40 mg DAILY CORINNE Administration Lactated Ringer's 1,000 mls @ 100 mls/hr 04/23/22 18:27 04/25/22 10:42 Lr - Lactated Ringers Iv IV CONT 100 mls/hr .Q10H CORINNE Administration Morphine Sulfate 2 mg 04/23/22 18:27 Morphine Sulfate (*Crx) 2 Mg/Ml Inj IV PUSH Q2H PRN Pain Rated 4-6 Morphine Sulfate 4 mg 04/23/22 18:27 Morphine Sulfate (*Crx) 4 Mg/Ml Inj IV PUSH Q2H PRN Pain Rated 7-10 Ondansetron HCl 4 mg 04/23/22 18:27 Ondansetron Inj 4 Mg/2 Ml Vial IV PUSH Q4H PRN Nausea And Vomiting Oxycodone HCl 2.5 mg 04/23/22 18:27 Oxycodone Hcl (*Crx) 2.5 Mg Tab Ir PO Q4H PRN Pain Rated 4-6 Oxycodone HCl 5 mg 04/23/22 18:27 Oxycodone Hcl (*Crx) 5 Mg Tab Ir PO Q4H PRN Pain Rated 7-10 Tamsulosin HCl 0.4 mg 04/23/22 21:00 04/24/22 19:42 Tamsulosin Hcl 0.4 Mg Capsule PO 0.4 mg QHS CORINNE Administration Labs Labs: Laboratory Results - last 24 hr 04/25/22 04/25/22 05:45 05:45 WBC 8.5 RBC 2.34 L Hgb 7.1 L Hct 22.0 L MCV 94.0 MCH 30.3 MCHC 32.3 RDW 14.6 H Plt Count 259 MPV 8.7 Sodium 138 Potassium 3.6 Chloride 110 H Carbon Dioxide 29 Anion Gap -1 L BUN 12 Creatinine 0.80 Estim Creat Clear Calc 59 Estimated GFR > 60 Glucose 94 Calcium 6.9 L
[2022-04-25 14:00] VITALS: BP 98/66; PULSE 76; RESP 16; TEMP 36.2; O2SAT 100
[2022-04-25 20:00] VITALS: PULSE 76; RESP 16; O2SAT 100
[2022-04-25] MEDS: TAMSULOSIN HCL 0.4 MG CAPSULE PO (20:22)
[2022-04-25 22:00] VITALS: BP 111/63; PULSE 67; RESP 16; TEMP 36.7; O2SAT 97
[2022-04-26] VITALS (10 sets, daily range): BP systolic 109–139; BP diastolic 60–82; PULSE 63–80; RESP 16–18; TEMP 36.3–37; O2SAT 96–99
[2022-04-26] MEDS: ACETAMINOPHEN 500 MG TABLET 1000 MG PO ×4 (05:02→17:08)
[2022-04-26 06:54] LABS: Hematocrit 21.1 % (42.0-52.0); Mean Corpuscular HGB Conc 32.2 g/dl (32-36); Mean Corpuscular Hemoglobin 30.4 pg (26-34); Mean Corpuscular Volume 94.2 fl (80-100); Mean Platelet Volume 8.9 fl (7.4-10.4); Platelet Count Result 264 k/mm3 (150-375); Red Blood Count 2.24 M/mm3 (4.6-6.20); Red Cell Distribution Width 15.1 % (11.5-14.5); White Blood Count 8.5 K/mm3 (4.5-10.0)
[2022-04-26 06:57] LABS: Hemoglobin 6.8 g/dL (14.0-18.0)
--- NOTE | 2022-04-26 07:00 | PC.NURSE ---
MD Yusuf called critical hemoglobin 6.8 unit ordered.
[2022-04-26 07:08] LABS: Anion Gap 1 mmol/L (8-16); Blood Urea Nitrogen 13 mg/dL (9-20); Carbon Dioxide 27 mmol/L (22-30); Chloride 107 mmol/L (98-107); Estimated CRCL calculation 59 ml/min; Estimated Glomerular Filt Rate > 60; Glucose 92 mg/dL (65-110); Potassium 3.3 mmol/L (3.4-5.0); Sodium 135 mmol/L (137-145)
[2022-04-26] MEDS: DUTASTERIDE 0.5 MG CAPSULE PO (08:59)
[2022-04-26] MEDS: ENOXAPARIN 40 MG/0.4 ML SYRINGE SUB-Q (09:00)
--- NOTE | 2022-04-26 10:17 | PM.PNGS ---
Progress Note: A&P Assessment and Plan (1) Primary adenocarcinoma of ascending colon: Code(s): C18.2 - Malignant neoplasm of ascending colon Status: Acute Assessment and Plan: Patient has been doing well after surgery. Is tolerating diet and having bowel movements. He is able to ambulate on his own. (2) Anemia: Code(s): D64.9 - Anemia, unspecified Status: Acute Assessment and Plan: Hemoglobin has dropped to 6.8 today. Is likely due to acute blood loss from surgery as well as multiple blood draws and hemodilution. He is not significantly symptomatic but I feel he will do better getting 1unit of packed red blood cells for transfusion today. We will repeat his CBC after transfusion and if his hemoglobin is less than 7.5 that I would give him another unit of blood. Subjective Subjective Date/Time Seen: 04/26/22 10:17 Interval history: Patient is doing well after his colon resection for colon cancer. He did have some intraoperative bleeding which has resulted in a low hemoglobin. Yesterday his hemoglobin was 7.1 and this morning it has dropped down to 6.8. He has been up walking around but admits to being a little dizzy when he sits up quickly. He has been able to urinate spontaneously but admits he does not feel like his bladder completely empties. He has a history of prostate issues. He remains on Flomax. He has tolerated regular food and continues to have some loose bowel movements. Exam Narrative: Abdomen is soft and nondistended. Incisions have some minimal ecchymosis but no hematoma. No redness or drainage from the incisions. Resp: Effort & Inspection: normal respiratory effort Auscultation: clear to auscultation bilaterally Cardio: Rate: regular rate Rhythm: regular rhythm Neuro: Speech: normal speech Sensory Exam: normal sensation Psych: Mental Status: mental status grossly normal Affect: normal affect Objective Data Vital Signs Vital Signs: Vital Signs - 24 hr 04/25/22 14:00 04/25/22 20:00 04/25/22 22:00 Temperature 36.2 C L 36.7 C Pulse Rate 76 76 67 Respiratory Rate 16 16 16 Blood Pressure 98/66 L 111/63 Pulse Oximetry 100 100 97 Oxygen Delivery Room Air 04/26/22 06:00 04/26/22 07:02 Temperature 37.0 C 37.0 C Pulse Rate 80 80 Respiratory Rate 18 18 Blood Pressure 139/60 139/60 Pulse Oximetry 98 98 Oxygen Delivery Room Air Intake/Output Intake/Output: Intake & Output 04/23/22 04/24/22 04/25/22 04/26/22 23:59 23:59 23:59 23:59 Intake Total 250 3360 3920 860 Output Total 260 1000 500 Balance -10 2360 3420 860 Meds/Results Medications: Active Medications Generic Name Dose Route Start Last Admin Trade Name Freq PRN Reason Stop Dose Admin Acetaminophen 1,000 mg 04/23/22 18:27 04/26/22 05:02 Acetaminophen 500 Mg Tablet PO 1,000 mg Q6HR CORINNE Administration Dutasteride 0.5 mg 04/24/22 09:00 04/26/22 08:59 Dutasteride 0.5 Mg Capsule PO 0.5 mg DAILY CORINNE Administration Enoxaparin Sodium 40 mg 04/24/22 09:00 04/26/22 09:00 Enoxaparin 40 Mg/0.4 Ml Syringe SUB-Q 40 mg DAILY CORINNE Administration Lactated Ringer's 1,000 mls @ 100 mls/hr 04/23/22 18:27 04/25/22 20:22 Lr - Lactated Ringers Iv IV CONT 100 mls/hr .Q10H CORINNE Administration Sodium Chloride 250 mls @ 30 mls/hr 04/26/22 07:03 Normal Saline Iv IV CONT 04/26/22 15:22 .Q8H20M STA Morphine Sulfate 2 mg 04/23/22 18:27 Morphine Sulfate (*Crx) 2 Mg/Ml Inj IV PUSH Q2H PRN Pain Rated 4-6 Morphine Sulfate 4 mg 04/23/22 18:27 Morphine Sulfate (*Crx) 4 Mg/Ml Inj IV PUSH Q2H PRN Pain Rated 7-10 Ondansetron HCl 4 mg 04/23/22 18:27 Ondansetron Inj 4 Mg/2 Ml Vial IV PUSH Q4H PRN Nausea And Vomiting Oxycodone HCl 2.5 mg 04/23/22 18:27 Oxycodone Hcl (*Crx) 2.5 Mg Tab Ir PO Q4H PRN Pain Rated 4-6 Oxycodone HCl 5 mg 04/23/22 18:27 Oxycodone Hcl (*Crx) 5 Mg Ta
[2022-04-26] MEDS: SODIUM CHLORIDE 0.9% IV 250 ML 30 ML IV CONT (10:43)
[2022-04-26 16:10] LABS: Hematocrit 24.6 % (42.0-52.0); Hemoglobin 8.3 g/dL (14.0-18.0)
[2022-04-26] MEDS: LACTATED RINGERS 1,000 ML 100 ML IV CONT (16:22)
[2022-04-26] MEDS: TAMSULOSIN HCL 0.4 MG CAPSULE PO (21:56)
[2022-04-27 05:50] VITALS: BP 154/79; PULSE 58; RESP 16; TEMP 35.6; O2SAT 99
[2022-04-27 08:34] LABS: Basophils Absolute Auto 0.1 K/mm3 (0.0-0.1); Basophils Percent Auto 0.8 % (0.2-1.2); Eosinophils Absolute Auto 0.3 K/mm3 (0-0.3); Hematocrit 25.4 % (42.0-52.0); Hemoglobin 8.2 g/dL (14.0-18.0); Immature Granulocyte Absolute 0.05 K/mm3 (0.00-0.031); Immature Granulocyte Percent A 0.7 % (0-0.5); Lymphocytes Absolute Auto 1.57 K/mm3 (0.9-3.2); Lymphocytes Percent Auto 21.8 % (18.3-44.2); Mean Corpuscular HGB Conc 32.3 g/dl (32-36); Mean Corpuscular Hemoglobin 29.5 pg (26-34); Mean Corpuscular Volume 91.4 fl (80-100); Mean Platelet Volume 8.6 fl (7.4-10.4); Monocytes Absolute Auto 0.3 K/mm3 (0.1-0.6); Monocytes Percent Auto 3.5 % (2.6-8.5); Neutrophils Percent Auto 69.2 % (45.5-73.1); Platelet Count Result 290 k/mm3 (150-375); Red Blood Count 2.78 M/mm3 (4.6-6.20); Red Cell Distribution Width 15.2 % (11.5-14.5); White Blood Count 7.2 K/mm3 (4.5-10.0)
[2022-04-27] MEDS: DUTASTERIDE 0.5 MG CAPSULE PO (09:03)
[2022-04-27] MEDS: ENOXAPARIN 40 MG/0.4 ML SYRINGE SUB-Q (09:03)
[2022-04-27] MEDS: POLYSACCHARIDE IRON COMPLEX 150 MG CAPSULE PO (09:03)
--- NOTE | 2022-04-27 10:15 | PM.PNGS ---
Progress Note: A&P Assessment and Plan (1) Primary adenocarcinoma of ascending colon: Code(s): C18.2 - Malignant neoplasm of ascending colon Status: Acute Assessment and Plan: The patient is doing very well now and is clinically stable. I think he be discharged home today. His hemoglobin is now 8.2 after 1 unit of packed red blood cell transfusion. He can rebuild his blood level with iron supplements and is multivitamin. It was also instructed to supplement his diet with some Ensure shakes and eat red meats. His son asked me to fill out a application for a handicap parking decal. I will fill it out for a 6 month temporary decal and if he needs a permanent 1 he can address it with his primary care physician. Subjective Subjective Date/Time Seen: 04/27/22 10:15 Interval history: Mr. Bryant is doing very well today. He continues to ambulate in the halls without difficulty. He is tolerating small amounts of solid food and continues to have bowel movements. He received 1 unit of packed red blood cells yesterday for a hemoglobin of 6.8. Today's hemoglobin is 8.2. He was started on a multivitamin with iron yesterday. Exam Narrative: Abdomen soft and nondistended. Incisions are all healing well in the redness or drainage. Minimal tenderness to palpation around the decisions. Objective Data Vital Signs Vital Signs: Vital Signs - 24 hr 04/26/22 10:36 04/26/22 11:28 04/26/22 11:45 Temperature 36.4 C 36.3 C L Pulse Rate 66 64 Respiratory Rate 18 18 Blood Pressure 112/74 109/70 Pulse Oximetry 96 99 98 Oxygen Delivery Room Air 04/26/22 12:45 04/26/22 13:58 04/26/22 14:03 Temperature 36.6 C 36.6 C 36.5 C Pulse Rate 69 64 67 Respiratory Rate 18 18 18 Blood Pressure 128/82 119/78 124/76 Pulse Oximetry 98 98 99 Oxygen Delivery 04/26/22 22:00 04/26/22 20:00 04/27/22 05:50 Temperature 36.6 C 35.6 C L Pulse Rate 63 63 58 L Respiratory Rate 16 16 16 Blood Pressure 125/64 154/79 H Pulse Oximetry 99 99 99 Oxygen Delivery Room Air Intake/Output Intake/Output: Intake & Output 0204/25/22 04/26/22 04/27/22 23:59 23:59 23:59 23:59 Intake Total 3360 3920 3170 952 Output Total 1000 500 Balance 2360 3420 3170 952 Meds/Results Medications: Active Medications Generic Name Dose Route Start Last Admin Trade Name Freq PRN Reason Stop Dose Admin Acetaminophen 1,000 mg 04/23/22 18:27 04/27/22 05:48 Acetaminophen 500 Mg Tablet PO Not Given Q6HR [facility] Dutasteride 0.5 mg 04/24/22 09:00 04/27/22 09:03 Dutasteride 0.5 Mg Capsule PO 0.5 mg DAILY CORINNE Administration Enoxaparin Sodium 40 mg 04/24/22 09:00 04/27/22 09:03 Enoxaparin 40 Mg/0.4 Ml Syringe SUB-Q 40 mg DAILY CORINNE Administration Lactated Ringer's 1,000 mls @ 100 mls/hr 04/23/22 18:27 04/26/22 16:22 Lr - Lactated Ringers Iv IV CONT 100 mls/hr .Q10H CORINNE Administration Morphine Sulfate 2 mg 04/23/22 18:27 Morphine Sulfate (*Crx) 2 Mg/Ml Inj IV PUSH Q2H PRN Pain Rated 4-6 Morphine Sulfate 4 mg 04/23/22 18:27 Morphine Sulfate (*Crx) 4 Mg/Ml Inj IV PUSH Q2H PRN Pain Rated 7-10 Ondansetron HCl 4 mg 04/23/22 18:27 Ondansetron Inj 4 Mg/2 Ml Vial IV PUSH Q4H PRN Nausea And Vomiting Oxycodone HCl 2.5 mg 04/23/22 18:27 Oxycodone Hcl (*Crx) 2.5 Mg Tab Ir PO Q4H PRN Pain Rated 4-6 Oxycodone HCl 5 mg 04/23/22 18:27 Oxycodone Hcl (*Crx) 5 Mg Tab Ir PO Q4H PRN Pain Rated 7-10 Polysaccharide Iron Complex 150 mg 04/27/22 08:00 04/27/22 09:03 Polysaccharide Iron Complex 150 Mg Capsule PO 150 mg DAILY@0800 [facility] Administration Tamsulosin HCl 0.4 mg 04/23/22 21:00 04/26/22 21:56 Tamsulosin Hcl 0.4 Mg Capsule PO 0.4 mg QHS CORINNE Administration Labs Labs: Laboratory Results - last 24 hr 04/23/22 04/26/22 04/27/22 22:28 16:02 08:16 WBC 7.2 RBC 2.78 L Hgb 8.3 L 8.2 L Hct
[2022-04-27 13:45] VITALS: BP 126/79; PULSE 73; RESP 18; TEMP 36.3; O2SAT 100
--- NOTE | 2022-04-27 14:19 | PM.DS ---
DS: Admitting Diagnosis Discharge Date 04/27/22 Admitting Diagnosis Ascending colon cancer DS: Discharge Diagnosis Discharge Diagnosis (1) Primary adenocarcinoma of ascending colon: Code(s): C18.2 - Malignant neoplasm of ascending colon Status: Acute DS: Summary Hospital Course Reason for hospitalization: Ascending colon cancer Hospital Course: This is an 81-year-old man who presented with ascending colon cancer for surgical resection. He underwent hand assisted laparoscopic right hemicolectomy on 04/23/2022. He had significant adhesions from prior surgeries and had to have another small segment of small bowel resected along with the primary procedure. He did have significant blood loss during the surgery as well but was hemodynamically stable immediately postop. He was admitted to the surgical floor and a repeat hemoglobin and hematocrit level was ordered for 6 hours postop. His hemoglobin was remaining stable and his blood pressure and heart rate were remaining stable. He was started on a clear liquid diet initially. His Lima catheter was removed on postoperative day 2. His diet was also advanced to a full liquid diet on postoperative day 2. He was then advanced to a regular diet on postoperative day 3. His hemoglobin was remaining slightly low but he was not showing any further signs of ongoing bleeding. His postoperative day 4 his hemoglobin did drop to 6.8 and he was still feeling somewhat weak and fatigued. He was given 1 unit of packed red blood cells and post transfusion H&H went up appropriately. Postoperative day 5 his hemoglobin was remaining stable and he was feeling better. His bowels were moving and he was tolerating the soft regular diet. He was discharged on postoperative day 5. Status at Discharge Functional status at discharge: uses cane/walker Time Spent with Patient Time attestation: Total time spent providing and/or coordinating discharge services: Time spent: Less than 30 minutes Exam GI: Inspection: non-distended and incision ( Intact with glue) GI Palp: Yes Soft to palpation, No Tenderness to palpation present (GI) and No Guarding due to palpation present (GI) Auscultation: normal bowel sounds DS: Data Data Completed and Pending Completed studies during hospitalization: Pending at discharge 04/23/22 15:28 Final Diagnosis Small bowel, resection (A): -? Benign small intestine with adhesion -? Benign lymph nodes (0/4) Right colon, hemicolectomy (B): -? Adenocarcinoma, moderately differentiated, 14 cm -? All surgical margins are negative for tumor -? pT3N1c -? Appendix with chronic inflammation Discharge Plan Discharge Attending physician on discharge: Ernesto Graham Consulting providers: Mindi Willoughby ; Tessa Rojas Discharging Clinician: Juan Yusuf Anticipated Discharge Date/Time: 04/27/22 13:31 Patient Disposition: Home, Self-Care Activity: other - see discharge instructions Diet: regular Discharge Instructions: The patient may discharge home today. May shower but do not soak the incisions under water for 2 weeks. No lifting more than 10 to 15 lb for 4 weeks. No driving for 1 week or until no longer taking any narcotic pain medications. Continue all home medications and new prescriptions for narcotic pain medications, multi vitamin with iron, and stool softener have been sent to his pharmacy. Patient Instructions: Antibiotic Form Stand Alone Forms: General Discharge Information Follow-up/Referrals: Ernesto Graham, [Physician] - ( Follow-up to see Dr. Graham in 2 weeks. Call [phone] for an appointment.) Discharge Medications: New Niferex (Sumalate-Quatrefolic) 150 mg iron- 60 mg-1 mg tablet 1 tablet PO DAILY Qty: 30 2RF docusate sodium [Colace] 100 mg capsule 100 mg PO DAILY Qty: 30 1RF Continued tamsulosin 0.4 mg capsule 0.4 mg PO QHS Qty: 30 2RF dutasteride 0.5 mg capsule
== END 2022-04-27 14:30 | disposition home or self-care (01) | DRG 330 ==
LOC: ANH3MEDSUR 04-24 05:39
PROVIDERS: Nurse Practitioner Family; Surgery; Admitting Provider Surgery; PCP Family Medicine; Visit Provider Surgery
PROC: 0DTF4ZZ Resection of Right Large Intestine, Percutaneous Endoscopic Approach (ICD-10-PCS; CPT 44204; principal; 2022-04-23 14:30)
DX: C18.2 Malignant neoplasm of ascending colon (principal); D62 Acute posthemorrhagic anemia; K91.71 Accidental puncture and laceration of a digestive system organ or structure during a digestive system procedure; K66.0 Peritoneal adhesions (postprocedural) (postinfection); K80.20 Calculus of gallbladder without cholecystitis without obstruction; N40.1 Benign prostatic hyperplasia with lower urinary tract symptoms; R35.1 Nocturia; Z87.891 Personal history of nicotine dependence
CPT/HCPCS: 36415; 36430; 71260; 74177; 80048; 82378; 85014; 85018; 85025; 85027; 86850; 86900; 86901; 86923; 88307; 88309; 93005; A9270; C9290; J0690; J1100; J1650; J1885; J2405; J2704; J2710; J3010; J7050; J7120; P9016; Q9967

== ENCOUNTER 2022-04-29 01:19 | Emergency (ER) | payer MEDICARE, SELFPAY ==
[2022-04-29 01:22] VITALS: BP 142/89; PULSE 78; RESP 17; O2SAT 98
[2022-04-29 01:25] VITALS: TEMP 36.8
[2022-04-29] MEDS: LIDOCAINE HCL 2% GEL UROJET 10 ML PKG (01:37)
--- NOTE | 2022-04-29 02:14 | ED.GENADULT ---
HPI - General Adult General Chief complaint: Urogenital-Male Stated complaint: UNABLE TO URINATE Time Seen by Provider: 04/29/22 01:19 History of Present Illness HPI narrative: 81-year-old male presented to the emergency department for evaluation of urinary retention. Patient had a recent colon resection due to colon cancer. Patient does have prior history of urinary retention and does take Flomax. Patient did have a Lima catheter while in the hospital this was removed and patient was able to urinate afterwards. After being discharged patient states has had decreased urination and increased urinary pressure. Bedside bladder scan showed greater than 400 mL of retained urine. Related Data Allergies Allergy/AdvReac Type Severity Reaction Status Date / Time No Known Allergies Allergy Unknown Verified 04/23/22 12:52 Review of Systems Review of Systems: CONSTITUTIONAL: Denies fever, chills, or sweats. EYES: Denies visual changes, redness, or discharge. ENT: Denies rhinorrhea, congestion, sore throat, or otalgia. CARDIOVASCULAR: Denies chest pain, palpitations, or edema. RESPIRATORY: Denies cough or dyspnea. GASTROINTESTINAL: See HPI GENITOURINARY: See HPI SKIN: Denies rash or itching. MUSCULOSKELETAL: Denies back pain, joint pain, or myalgia. NEUROLOGIC: Denies headache, numbness, or weakness. PSYCHIATRIC: Denies anxiety or depression. [facility] Past Medical History Medical History Achilles tendon tear Bilateral inguinal hernia H/O colon cancer, stage I Surgical History Surgical History H/O Achilles tendon repair H/O bilateral inguinal hernia repair History of colon resection Social History Social History Social History: Smoking packs per day: 0.5 Smoking cigarettes per day: 10.0 Years smoked: 20 Smoking pack-years: 10.00 Smoking status: Former smoker Tobacco type: cigarettes Second hand tobacco smoke exposure: No Smoking end date: 03/23/79 Alcohol intake: current Alcohol use details: 1-2/WEEK Substance use: never Substance use type: does not use Living arrangements: with family Occupation/Education: retired Gender identity (if verbalized by the patient): Male Sexual Orientation (if Verbalized by the Patient): Straight or Heterosexual Spiritual care concerns: No Exam Narrative: APPEARANCE: Well appearing, no pain, no distress, well-nourished. HEAD: normocephalic, atraumatic. EYES: PERRLA/EOMI, conjunctivae clear. NOSE: Normal no drainage NECK: Supple. No adenopathy, no masses. RESPIRATORY: Airway patent, respirations nonlabored. Clear to auscultation bilaterally, no rales, rhonchi, wheezing. CARDIOVASCULAR: Regular rate and rhythm without murmurs rubs or gallops. ABDOMINAL: Some lower abdominal tenderness to palpation prior to Lima placement. Surgical incisions are well-appearing. Normal bowel sounds. On reexamination patient's suprapubic tenderness had improved MUSCULOSKELETAL: Moves all extremities. Strength/ROM intact, No edema, No calf tenderness. NEURO: Alert. Cranial nerves II through XII intact. Grossly intact SKIN: Warm, dry. Normal Color Course Course Emergency Course: Bedside bladder scan showed greater than 400 mils of retained urine. Patient was unable to urinate any additional. Patient does have history of urinary retention and is already on dutasteride and tamsulosin. Indwelling Lima catheter was placed. Mild hematuria but no evidence of urinary tract infection. Patient reports that his abdominal pain and tightness was resolved but was complaining of some burning at the urethra from the Lima catheter. Patient and family were updated on the results of the work-up and Lima catheter care along with recommendations for follow-up with urology. All questions and concerns were addressed. Patient an
[2022-04-29 02:18] LABS: Appearance Urine Clear (Clear); Bilirubin Urine Negative (Negative); Blood Urine 1+ (Negative); Color Urine Yellow (Yellow); Glucose Urine UA Negative (Negative); Ketones Urine Negative (Negative); Leukocyte Esterase Ur Negative LEU/UL (Negative); Nitrate Urine Negative (Negative); Protein Urine Negative (Negative); Specific Grav Ur 1.015 (1.001-1.035); Urobilinogen Urine 0.2 mg/dL (<2.0); pH Urine 8.5 (5.0-9.0)
[2022-04-29 02:19] LABS: Mucus Urine Rare /lpf; WBC Urine 0-3 /hpf
[2022-04-29 02:21] LABS: Add Urine Microscopic? YES
[2022-04-29 02:50] VITALS: BP 125/77; PULSE 66; RESP 14; O2SAT 97
== END 2022-04-29 02:50 | disposition home or self-care (01) ==
PROVIDERS: Emergency Provider Emergency Medicine; PCP Family Medicine
DX: R33.9 Retention of urine, unspecified (principal); C18.9 Malignant neoplasm of colon, unspecified; Z90.49 Acquired absence of other specified parts of digestive tract; Z87.891 Personal history of nicotine dependence
CPT/HCPCS: 51702; 81001; 99283

== ENCOUNTER 2022-05-01 15:51 | Outpatient (CLI) | payer MEDICARE, SELFPAY ==
[2022-05-01 16:04] LABS: Hematocrit 25.4 % (42.0-52.0); Hemoglobin 8.2 g/dL (14.0-18.0); Mean Corpuscular HGB Conc 32.3 g/dl (32-36); Mean Corpuscular Hemoglobin 31.2 pg (26-34); Mean Corpuscular Volume 96.6 fl (80-100); Mean Platelet Volume 8.1 fl (7.4-10.4); Platelet Count Result 340 k/mm3 (150-375); Red Blood Count 2.63 M/mm3 (4.6-6.20); Red Cell Distribution Width 16.7 % (11.5-14.5); White Blood Count 8.1 K/mm3 (4.5-10.0)
[2022-05-01 18:09] LABS: Alanine Aminotransferase 52 U/L (6-50); Albumin Level 2.8 g/dL (3.5-5.1); Alkaline Phosphatase 131 U/L (38-126); Anion Gap 0 mmol/L (8-16); Aspartate Amino Transferase 150 U/L (17-59); Bilirubin,Total 0.3 mg/dL (0.2-1.3); Blood Urea Nitrogen 13 mg/dL (9-20); Calcium 7.3 mg/dL (8.4-10.2); Carbon Dioxide 30 mmol/L (22-30); Chloride 108 mmol/L (98-107); Estimated Glomerular Filt Rate > 60; Glucose 108 mg/dL (65-110); Potassium 3.6 mmol/L (3.4-5.0); Sodium 138 mmol/L (137-145)
[2022-05-01 18:33] LABS: Iron 32 ug/dL (49-181)
[2022-05-01 18:48] LABS: Percent Iron Saturation 11 % (20-50)
== END 2022-05-01 15:52 | disposition home or self-care (01) ==
LOC: ANHLAB 15:53
PROVIDERS: PCP Family Medicine; Visit Provider Internal Medicine Hematology & Oncology
DX: D64.9 Anemia, unspecified (principal)
CPT/HCPCS: 36415; 80053; 82607; 82728; 83540; 83550; 85027

== ENCOUNTER 2022-05-12 12:06 | Outpatient (CLI) | payer MEDICARE, SELFPAY ==
--- NOTE | ~2022-05-12 | US_ITS ---
EXAMINATION:US venous doppler LE BI INDICATION:Leg edema TECHNIQUE: Multiple grayscale, color flow and Doppler images of the right and left lower extremity de ep venous systems were obtained and reviewed. COMPARISON:No prior studies for comparison. FINDINGS: The common femoral, superficial femoral and popliteal veins demonstrate normal respiratory variation, augmentation and compressibility. Color flow is also seen within the posterior tibial, pe roneal, greater saphenous and profunda veins. IMPRESSION: 1: No lower extremity deep venous thrombosis. Reviewed, dictated and finalized at location B. TEACHER
== END 2022-05-12 12:07 | disposition home or self-care (01) ==
LOC: ANHIMG 12:12
PROVIDERS: PCP Family Medicine; Visit Provider Surgery
DX: R60.0 Localized edema (principal)
CPT/HCPCS: 93970

== ENCOUNTER 2022-06-05 12:00 | Outpatient (CLI) | payer MEDICARE, SELFPAY ==
[2022-06-05 13:35] LABS: Partial Thromboplastin Time 26.8 SECONDS (22.3-36.8)
== END 2022-06-05 12:01 | disposition home or self-care (01) ==
LOC: ANHSURGERY 12:04
PROVIDERS: PCP Family Medicine; Visit Provider Surgery
DX: Z85.038 Personal history of other malignant neoplasm of large intestine (principal)
CPT/HCPCS: 36415; 85610; 85730

== ENCOUNTER 2022-07-15 07:28 | Outpatient (CLI) | payer MEDICARE, SELFPAY ==
--- NOTE | ~2022-07-15 | PE_ITS ---
EXAMINATION: PET skull to mid thigh DATE: 07/15/2022 09:53 INDICATION: Colon cancer TECHNIQUE: Blood glucose level was 92 mg/dL. 9.503 mCi of 18-fluorodeoxyglucose (18-FDG) was administ ered i.v. Low dose computed tomography (CT) images were acquired from the base of the brain to the pr oximal thighs for attenuation correction and anatomic localization. Positron emission tomography (PET ) images were acquired in the same distribution beginning 62 minutes after injection. Images includin g fused PET/CT images were reconstructed in axial, coronal, and sagittal planes. Automated exposure c ontrol technique was employed. The dose-length product was 545.11mGy-cm. COMPARISON: CT chest, abdomen and pelvis FINDINGS: Head/neck: 12 mm FDG avid right posterior cervical triangle lymph nodes node positioned along the posterior samy in of the midportion of the sternocleidomastoid muscle with maximal SUV of 4.0. There is symmetric in creased activity in the oral cavity, palatine tonsils, parotid glands, submandibular glands, larynge al muscles and ocular muscles without CT correlate, likely physiologic. Chest: Cardiomegaly. Atherosclerotic coronary artery calcific location. No pericardial effusion. Fusiform an eurysmal ascending thoracic aorta which measures up to 4.5 cm maximal diameter. Minimal dependent ate lectasis in the bilateral lower lobes. 6-7 mm mildly FDG avid right upper lobe nodule with maximal DONAHUE V of 2.7. There is additional more avid focus of FDG activity with maximal SUV of 5.3 situated along the anterior margin of the lingula where it abuts a pericardial fat pad which is without a definitive nodular correlate on the CT imaging. No other pulmonary nodules, pneumonia, pulmonary edema or pleur al effusion. There is mild FDG uptake associated with multiple still normal-sized bilateral hilar and mediastinal lymph nodes. For reference a subcarinal lymph node measuring 8 mm in short axis diameter and a right paratracheal lymph node measuring 5 mm short axis diameter both demonstrate maximal SUV values of 4.0. Abdomen/pelvis/proximal thighs: Physiologic renal accumulation and excretion of FDG activity in the kidneys, bladder and along portio ns of ureters. Normal degree and heterogenous pattern of increased uptake throughout the liver withou t radiologic correlate or dominant FDG avid lesion. The pancreas, spleen and bilateral adrenal glands are normal. Calcified gallstones at the neck of the otherwise normal-appearing gallbladder. Postoper ative change of interval right hemicolectomy with ileocolic anastomotic suture line in the right uppe r quadrant. There is likely physiologic mild uptake scattered along the remaining colon without radio logic correlate. No bowel obstruction. Prostate is unremarkable. Mild fusiform ectasia of the infrare nal aorta measuring up to 3.2 cm in maximal diameter. No pathologically enlarged or FDG avid lymphade nopathy in the abdomen, pelvis or proximal thighs. Musculoskeletal: There are multiple foci of likely enthesopathic mild FDG uptake at the sites of musculature and tendi nous insertions on the bones including at the right iliac crest and posterior iliac spine, bilateral anterior iliac spines and greater trochanters as well as at the L5 spinous process without radiologic correlate. No suspicious lytic or blastic bone lesions. There is mild uptake likely reflecting vang es of healing lung a midline abdominal surgical wound. More prominent linear increased uptake in the soft tissues along the right upper arm representing lymphatic extension of extravasated uptake arisin g at the right antecubital fossa site of injection. IMPRESSION: 1. Mild uptake such with a small right upper lobe nodule and along the anterior lingula without radio logic correlate for which differential would include metastatic disease were infectious/inflammatory nodules. 2. Mild uptake associated
[2022-07-15 08:12] LABS: Glucose Point of Care 92 mg/dl (65-105)
== END 2022-07-15 07:29 | disposition home or self-care (01) ==
PROVIDERS: PCP Family Medicine; Visit Provider Internal Medicine Medical Oncology
DX: C18.2 Malignant neoplasm of ascending colon (principal); R91.1 Solitary pulmonary nodule; R59.0 Localized enlarged lymph nodes; K80.20 Calculus of gallbladder without cholecystitis without obstruction; I51.7 Cardiomegaly; I71.21 Aneurysm of the ascending aorta, without rupture
CPT/HCPCS: 78815; A9552

== ENCOUNTER 2022-07-26 05:17 | Inpatient (IN) | payer MEDICARE, SELFPAY ==
[2022-07-26] VITALS (31 sets, daily range): BP systolic 121–195; BP diastolic 74–95; PULSE 50–66; RESP 9–37; TEMP 36.1–36.5; O2SAT 96–100; BMI 22.8
--- NOTE | ~2022-07-26 | XR_ITS ---
EXAMINATION: XR chest 1V portable DATE: 07/26/2022 06:16 INDICATION: Chest pain. TECHNIQUE: A single frontal view of the chest was obtained. COMPARISON: Chest 2 views 06/09/2009, PET/CT 07/15/2022 FINDINGS: There is no pneumonia, pleural effusion, or pneumothorax. Cardiomegaly is noted. IMPRESSION: 1. Cardiomegaly. Reviewed, dictated and finalized at location A. IMPRESSION: 1. Cardiomegaly.
--- NOTE | ~2022-07-26 | CT_ITS ---
EXAMINATION: CT chest abdomen pelvis w con DATE: 07/26/2022 20:56 INDICATION: Chest and epigastric pain. TECHNIQUE: Computed tomography (CT) of the chest, abdomen, and pelvis was performed with 100 mL Omnip aque 350 intravenous contrast. Automated exposure control and iterative reconstruction technique were employed. The dose-length product was 532.39 mGy-cm. COMPARISON: CT chest, abdomen, and pelvis 04/21/2022 FINDINGS: CHEST CT: There is mild atelectasis bilaterally. Calcified pulmonary nodules and calcified hilar lymph nodes ar e consistent with old granulomatous disease. No pleural effusion. Cardiomegaly is noted. There are co ronary artery calcifications. There is ectasia of ascending aorta measuring 4.5 cm. There is mild tho racic spondylosis. ABDOMEN/PELVIS CT: The liver is normal. There are gallstones in the gallbladder, which is normal in size. The spleen, pa ncreas, adrenal glands, and right kidney are normal. There is a 7 mm stone in left kidney. 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 There is diverticulosis of the colon without evidence of diverticulitis. There are changes of right hemicolectomy. There are no pathologically enlarged lym ph nodes. There is no free intraperitoneal fluid. There is mild lumbar spondylosis. IMPRESSION: 1. 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 2. Cholelithiasis. Reviewed, dictated and finalized at location A.
--- NOTE | 2022-07-26 05:43 | ECG_ITS ---
Measurements Intervals [place] Rate: 55 P: 96 AK: 247 QRS: -17 QRSD: 104 T: 134 QT: 459 QTc: 442 Interpretive Statements SINUS BRADYCARDIA WITH FIRST DEGREE AV BLOCK T WAVE ABNORMALITY IN ANTEROLAT/HIGH LAT LEADS- CONSIDER ISCHEMIA ABNORMAL ECG COMPARED TO ECG 04/21/2022 15:11:31 SINUS BRADYCARDIA NOW PRESENT T WAVE ABNORMALITY NOW PRESENT Electronically Signed On 07-26-2022 8:52:10 CDT by Rachid Stevenson D.O.
--- NOTE | 2022-07-26 06:15 | PC.NURSE ---
LD Duran made aware of redraw
--- NOTE | 2022-07-26 06:15 | PC.NURSE ---
Lab called for redraw of green top
[2022-07-26 06:17] LABS: Basophils Percent Auto 0.7 % (0.2-1.2); Eosinophils Absolute Auto 0.1 K/mm3 (0-0.3); Eosinophils Percent Auto 1.9 % (0-4.4); Hematocrit 40.2 % (42.0-52.0); Hemoglobin 13.5 g/dL (14.0-18.0); Immature Granulocyte Absolute 0.01 K/mm3 (0.00-0.031); Immature Granulocyte Percent A 0.2 % (0-0.5); Lymphocytes Absolute Auto 3.18 K/mm3 (0.9-3.2); Mean Corpuscular HGB Conc 33.6 g/dl (32-36); Mean Corpuscular Hemoglobin 32.2 pg (26-34); Mean Corpuscular Volume 95.9 fl (80-100); Mean Platelet Volume 9.8 fl (7.4-10.4); Monocytes Absolute Auto 0.5 K/mm3 (0.1-0.6); Monocytes Percent Auto 9.3 % (2.6-8.5); Neutrophils Absolute Auto 1.6 K/mm3 (1.3-6.7); Neutrophils Percent Auto 28.9 % (45.5-73.1); Platelet Count Result 181 k/mm3 (150-375); Red Blood Count 4.19 M/mm3 (4.6-6.20); Red Cell Distribution Width 14.5 % (11.5-14.5); White Blood Count 5.4 K/mm3 (4.5-10.0)
[2022-07-26 06:23] LABS: INR 0.9; Partial Thromboplastin Time 24.8 SECONDS (22.3-36.8); Prothrombin Time 12.7 Seconds (11.1-14.7)
--- NOTE | 2022-07-26 06:30 | ED.GENADULT ---
HPI - General Adult General Chief complaint: Chest Pain <Yaya Romero MD - Last Filed: 07/26/22 06:56> Stated complaint: CHEST PAIN <Yaya Romero MD - Last Filed: 07/26/22 06:56> Time Seen by Provider: 07/26/22 05:37 <Yaya Romero MD - Last Filed: 07/26/22 06:56> History of Present Illness HPI narrative: Patient 82-year-old gentleman who presents the emergency department with chief complaint of chest pain. Patient reports that he woke up this evening and started having midsternal discomfort in his chest. Patient states the pain radiated to his left arm and reports he was unable to get comfortable. The patient states he called his son who then called EMS. When EMS arrived they gave the patient 4 baby aspirin and I did a prehospital EKG. The EKG showed no evidence of ST elevation they transported the patient to the emergency department. Upon arrival to the emergency department the patient reports that his pain has completely resolved at this point. Patient reports no prior history of cardiac disease is currently undergoing chemotherapy for colon cancer <Yaya Romero MD - Last Filed: 07/26/22 06:56> Related Data Home medications: Home Medications Medication Instructions Recorded Confirmed ascorbic acid (vitamin C) 1,000 mg 1 g PO DAILY 06/05/22 07/26/22 tablet cyanocobalamin (vitamin B-12) 1,000 mcg PO DAILY 06/05/22 07/26/22 1,000 mcg tablet capecitabine 500 mg tablet 1,500 mg PO DAILY 07/26/22 07/26/22 capecitabine 500 mg tablet 2,000 mg PO HS 07/26/22 07/26/22 clobetasol 0.05 % topical ointment topical 07/26/22 <Yaya Romero MD - Last Filed: 07/26/22 06:56> Allergies/adverse reactions: Allergies Allergy/AdvReac Type Severity Reaction Status Date / Time No Known Allergies Allergy Unknown Verified 07/26/22 06:22 <Yaya Romero MD - Last Filed: 07/26/22 06:56> Review of Systems Review of Systems: A 10 system review of systems was completed on the patient and is negative except for what is stated in the HPI. Nursing and ancillary documentation was reviewed. <Yaya Romero MD - Last Filed: 07/26/22 06:56> [facility] Past Medical History Medical History: Medical History (Updated 07/26/22 @ 17:37 by Feliz Liu MD) Achilles tendon tear Bilateral inguinal hernia Colon cancer Sigmoid adenocarcinoma status post sigmoid colectomy in March 2009. Adenocarcinoma of the ascending colon diagnosed in March 2022. Diverticulitis <Yaya Romero MD - Last Filed: 07/26/22 06:56> Surgical History Surgical History: Surgical History (Updated 07/26/22 @ 15:37 by Marilynn Soliz PA-C) History of Achilles tendon repair (11/29/14) Right. History of bilateral inguinal hernia repair (05/30/16) History of colon resection (04/23/22) Hand assisted laparoscopic right hemicolectomy with ileocolic anastomosis, small bowel resection with side to side anastomosis, and extensive adhesiolysis. History of colonoscopy with polypectomy History of lithotripsy (04/15/19) History of partial colectomy (04/09/09) Laparoscopic sigmoid colectomy for sigmoid adenocarcinoma. <Yaya Romero MD - Last Filed: 07/26/22 06:56> Social History Social History: Social History Social History: Smoking packs per day: 0.5 Smoking cigarettes per day: 10.0 Years smoked: 20 Smoking pack-years: 10.00 Smoking status: Never smoker Tobacco type: cigarettes Second hand tobacco smoke exposure: No Smoking end date: 03/23/79 Alcohol intake: current Alcohol use details: 1-2 WEEK - NONE SINCE SURGERY 04/23/22 Substance use: never Substance use type: does not use Lack of Transportation: No Lack of Food: Never True Current Housing: I Have Housing Concerned About Future Housing: No Difficult
[2022-07-26 06:39] LABS: Alanine Aminotransferase 33 U/L (6-50); Albumin Level 3.8 g/dL (3.5-5.1); Alkaline Phosphatase 76 U/L (38-126); Anion Gap 5 mmol/L (8-16); Aspartate Amino Transferase 36 U/L (17-59); Bilirubin,Total 0.6 mg/dL (0.2-1.3); Blood Urea Nitrogen 16 mg/dL (9-20); Calcium 8.7 mg/dL (8.4-10.2); Carbon Dioxide 25 mmol/L (22-30); Chloride 108 mmol/L (98-107); Estimated CRCL calculation 53 ml/min; Estimated Glomerular Filt Rate > 60; Glucose 93 mg/dL (65-110); Lipase 155 U/L (23-300); Potassium 3.6 mmol/L (3.4-5.0); Sodium 138 mmol/L (137-145)
[2022-07-26 06:50] LABS: NT Pro B Type Natriuretic Pept 48 pg/mL (19.9-100); Troponin I < 0.012 ng/mL (0.000-0.034)
[2022-07-26 09:36] LABS: Troponin I 0.041 ng/mL (0.000-0.034)
[2022-07-26] MEDS: ASPIRIN 81 MG CHEWABLE TABLET 324 MG PO (10:29)
[2022-07-26] MEDS: HEPARIN SODIUM 5,000 UNITS/ML VIAL 4000 UNITS IV PUSH (10:43)
[2022-07-26] MEDS: HEPARIN SOD/D5W 100 UNITS/ML 25,000 UNITS/250 ML BAG 9 UNITS IV CONT (10:45)
--- NOTE | 2022-07-26 11:30 | PC.NURSE ---
Pt son Theodore notified of pt room number. Shawn phone #[phone]
[2022-07-26 12:14] LABS: Troponin I 0.034 ng/mL (0.000-0.034)
--- NOTE | 2022-07-26 14:46 | ADMGEN ---
This patient, Sterling Bryant, was admitted to IMU Room 214-01. Patient/family oriented to hospital policies and general routines including ID bracelet, bed and alarms, visiting hours, pain management, procedures, bathroom and other care routines, personal items, smoking policy, room service/diet, and visiting hours. Information on how to activate the Rapid Response Team has been discussed. Patient/Family are encouraged to report perceived risks to care and to ask questions if they do not understand what they are told or what they should do.
--- NOTE | 2022-07-26 15:28 | PM.IMHP ---
H&P: HPI History of Present Illness Date/Time: 07/26/22 12:15 Chief Complaint: Chest pain. Narrative: This is a very pleasant 82-year-old male with newly diagnosed stage IIIB cancer arising in the ascending colon/cecum (he started oral chemotherapy with capecitabine [address] Leung) who presented to the emergency department via EMS from home for evaluation of chest pain. The patient provides the following history; his son provides additional information with the patient's permission and helps translate as the patient primary language is Maori. He was wakened from sleep at 03:30 with a cramping discomfort in the center of his chest which radiated to both shoulders. He drinks some water and got up and walked around a bit to see if it would ease the pain however it did not. Eventually EMS was summoned and he was given 4 baby aspirin in route and by the time he arrived to the ED he was without discomfort. Blood pressure was 174/86 on arrival to the ED. CMP and CBC were without significant findings. Lipase was normal. His initial troponin was less than 0.012 with a mild increase in his 3 hour troponin to 0.041. He was started on a heparin drip and he was admitted to the IMU for close monitoring. Initial EKG showed sinus bradycardia with first-degree AV block and T-wave abnormalities in the anterior lateral and high lateral leads. Since admission to the floor he has had to similar episodes of this cramping discomfort which have been associated with nausea, bradycardia, and diaphoresis. Repeat EKG following the 1st episode showed deeper T-wave inversions in the anterolateral leads. He was given sublingual nitroglycerin which resolved the discomfort. At that time I requested that the nurse consult with the cissp and send EKGs for them to review. I re-evaluated the patient at this point and he was resting comfortably. The EKG changes improved with nitro. He indicates that these symptoms occurred when he was eating dinner and in addition to the nausea he was also feeling bloated and belched a couple of times. With further questioning he does occasionally experience heartburn, typically in the evenings, and seems to get better with drinking water. He is adamant that the symptoms he has been experiencing today are not at all similar to those he experiences with the heartburn. He has no known history of cardiac disease. About 12 years ago he had a stress test as he was getting short of breath with exertion and that was reportedly with in normal limits. Review of Systems Review of Systems: Twelve systems were reviewed. No fever, chills, or sweats. No recent cold or flu symptoms. While hanging curtains couple of days ago he fell off a small step stool (1 stair) and landed on his back. He has had some mild discomfort in the left upper posterior shoulder area. No bruising or gross deformity was noted there. The pain he is having today is not similar to what he has been experiencing in the left shoulder. He denies head trauma and loss of consciousness in the fall. He denies vomiting. No melena or hematochezia. He has no history of peptic ulcers. Except as documented, all other systems were reviewed and are negative. [facility] Past Medical History Medical History (Updated 07/26/22 @ 22:06 by Marilynn Soliz PA-C) Achilles tendon tear Bilateral inguinal hernia Cholelithiasis Colon cancer 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 Leung. Diverticulitis Surgical History Surgical History (Updated 07/26/22 @ 15:37 by Marilynn Soliz PA-C) History of Achilles tendon repair (11/29/14) Right. History of bilateral inguinal hernia repair (05/30/16) History of colon resection (04/23/22) Hand assisted laparoscopic right hemicolectomy with ileocolic anastomosis, sma
[2022-07-26 16:55] LABS: Partial Thromboplastin Time 66.6 SECONDS (22.3-36.8)
[2022-07-26] MEDS: POLYSACCHARIDE IRON COMPLEX 150 MG CAPSULE PO (16:56)
--- NOTE | 2022-07-26 17:16 | ECG_ITS ---
Measurements Intervals [place] Rate: 57 P: 35 AK: 196 QRS: -16 QRSD: 90 T: 15 QT: 451 QTc: 440 Interpretive Statements SINUS BRADYCARDIA BASELINE WANDER- I, II, III, AVF, V1-V3, V6 BORDERLINE ECG COMPARED TO ECG 07/26/2022 05:24:10 T WAVE ABNORMALITY RESOLVED Electronically Signed On 07-27-2022 7:54:34 CDT by Rachid Stevenson D.O.
[2022-07-26] MEDS: NITROGLYCERIN SL 0.4 MG TABLET SUBLINGUAL (17:24)
[2022-07-26] MEDS: HEPARIN SODIUM 5,000 UNITS/ML VIAL 3000 UNITS IV PUSH (17:37)
--- NOTE | 2022-07-26 17:47 | PC.NURSE ---
Addendum entered by Юлия Bryant RN 07/26/22 19:05: time correct to 1715 NOT 1515 Original Note: ~1515 pt called out stating he was in pain. pt found to be diaphoretic, grabbing at chest. BP was 188/80. Notified JL Carrasquillo. Stat EKG, Stat Troponin, and nitroglycerin was ordered per PA
[2022-07-26 18:07] LABS: Troponin I 0.014 ng/mL (0.000-0.034)
--- NOTE | 2022-07-26 19:00 | ECG_ITS ---
Measurements Intervals [place] Rate: 58 P: -10 WV: 242 QRS: -21 QRSD: 93 T: -17 QT: 440 QTc: 434 Interpretive Statements SINUS BRADYCARDIA WITH FIRST DEGREE AV BLOCK T-WAVE ABNORMALITY IN ANTEROLATERAL LEADS, CONSIDER ISCHEMIA BASELINE ARTIFACT- V3-V4 ABNORMAL ECG COMPARED TO ECG 07/26/2022 17:27:30 FIRST DEGREE AV BLOCK NOW PRESENT Electronically Signed On 07-27-2022 7:55:38 CDT by Rachid Stevenson D.O.
[2022-07-26] MEDS: PANTOPRAZOLE SODIUM IV 40 MG VIAL IV PUSH (20:29)
--- NOTE | 2022-07-26 21:08 | ECG_ITS ---
Measurements Intervals [place] Rate: 51 P: 87 CO: 266 QRS: 1 QRSD: 112 T: 62 QT: 476 QTc: 438 Interpretive Statements SINUS BRADYCARDIA WITH FIRST DEGREE AV BLOCK BASELINE WANDER- AVL, AVF BORDERLINE ECG COMPARED TO ECG 07/26/2022 19:00:38 T WAVE ABNORMALITY RESOLVED Electronically Signed On 07-27-2022 7:58:09 CDT by Rachid Stevenson D.O.
[2022-07-26] MEDS: BELLADONNA ALK/PHENOB ELIX 10 ML, MAG HYDROX/ALUMINUM HYD/SIMETH 30 ML, LIDOCAINE HCL 2... PO (21:56)
[2022-07-26] MEDS: NITROGLYCERIN OINTMENT 1 INCH DOSE TRANSDERM (22:05)
[2022-07-27] VITALS (13 sets, daily range): BP systolic 120–140; BP diastolic 70–84; PULSE 47–72; RESP 16–20; TEMP 36–36.4; O2SAT 97–100
[2022-07-27 00:03] LABS: Partial Thromboplastin Time 121.8 SECONDS (22.3-36.8)
[2022-07-27] MEDS: NITROGLYCERIN OINTMENT 1 INCH DOSE TRANSDERM ×3 (05:58→18:54)
[2022-07-27 06:29] LABS: Basophils Percent Auto 0.8 % (0.2-1.2); Eosinophils Percent Auto 0.4 % (0-4.4); Hematocrit 38.9 % (42.0-52.0); Hemoglobin 12.9 g/dL (14.0-18.0); Immature Granulocyte Absolute 0.01 K/mm3 (0.00-0.031); Immature Granulocyte Percent A 0.2 % (0-0.5); Lymphocytes Absolute Auto 2.29 K/mm3 (0.9-3.2); Lymphocytes Percent Auto 44.1 % (18.3-44.2); Mean Corpuscular HGB Conc 33.2 g/dl (32-36); Mean Corpuscular Hemoglobin 31.7 pg (26-34); Mean Corpuscular Volume 95.6 fl (80-100); Mean Platelet Volume 9.1 fl (7.4-10.4); Monocytes Absolute Auto 0.5 K/mm3 (0.1-0.6); Monocytes Percent Auto 8.7 % (2.6-8.5); Neutrophils Absolute Auto 2.4 K/mm3 (1.3-6.7); Neutrophils Percent Auto 45.8 % (45.5-73.1); Platelet Count Result 191 k/mm3 (150-375); Red Blood Count 4.07 M/mm3 (4.6-6.20); Red Cell Distribution Width 14.4 % (11.5-14.5); White Blood Count 5.2 K/mm3 (4.5-10.0)
[2022-07-27 06:39] LABS: Partial Thromboplastin Time 92.6 SECONDS (22.3-36.8)
[2022-07-27 06:53] LABS: Alanine Aminotransferase 31 U/L (6-50); Albumin Level 3.6 g/dL (3.5-5.1); Alkaline Phosphatase 79 U/L (38-126); Anion Gap 6 mmol/L (8-16); Aspartate Amino Transferase 33 U/L (17-59); Bilirubin,Total 1.1 mg/dL (0.2-1.3); Blood Urea Nitrogen 16 mg/dL (9-20); Calcium 8.3 mg/dL (8.4-10.2); Carbon Dioxide 24 mmol/L (22-30); Chloride 107 mmol/L (98-107); Cholesterol 202 mg/dL (0-200); Estimated CRCL calculation 59 ml/min; Estimated Glomerular Filt Rate > 60; Glucose 98 mg/dL (65-110); HDL Direct 41 mg/dL; Lipase 130 U/L (23-300); Magnesium 2.6 mg/dL (1.6-2.3); Potassium 3.7 mmol/L (3.4-5.0); Sodium 137 mmol/L (137-145); Triglycerides 84 mg/dL (<150)
[2022-07-27 07:04] LABS: LDL Cholesterol Direct 136 mg/dL
[2022-07-27] MEDS: ASCORBIC ACID 500 MG TABLET 1000 MG PO (09:00)
[2022-07-27] MEDS: POLYSACCHARIDE IRON COMPLEX 150 MG CAPSULE PO ×2 (09:01→18:17)
[2022-07-27] MEDS: CYANOCOBALAMIN 1,000 MCG TABLET 1000 MCG PO (09:02)
--- NOTE | 2022-07-27 10:16 | PC.NURSE ---
Dr. Nunes calling on behalf of [facility]: They would typically discontinue the chemo medication while he is inpatient.
--- NOTE | 2022-07-27 11:03 | PM.IMPN ---
Progress Note: A&P Assessment and Plan (1) Chest pain: Code(s): R07.9 - Chest pain, unspecified Status: Acute Assessment and Plan: Troponins noted Await Cardiology consult (2) Elevated troponin: Code(s): R77.8 - Other specified abnormalities of plasma proteins Status: Acute Assessment and Plan: Plan is as detailed above. (3) Colon cancer: Code(s): C18.9 - Malignant neoplasm of colon, unspecified Status: Acute Assessment and Plan: Patient was started on capecitabine [address] Leung. I have not been able to get a hold of him as of yet but I think he needs to be alert to the fact that the patient is currently in the hospital with chest pain to see if he wishes for him to continue the drug at this time. (4) Elevated blood pressure reading: Code(s): R03.0 - Elevated blood-pressure reading, without diagnosis of hypertension Status: Acute Assessment and Plan: Blood pressures have been running pretty consistently in the 140s to 150 systolic. May be related to anxiety or pain. For now will continue to monitor closely and initiate antihypertensives depending on how he trends. (5) Cardiomegaly: Code(s): I51.7 - Cardiomegaly Status: Acute Assessment and Plan: Noted on imaging. Echocardiogram has been ordered. (6) Aneurysm of infrarenal abdominal aorta: Code(s): I71.43 - Infrarenal abdominal aortic aneurysm, without rupture Status: Acute Assessment and Plan: Measuring 3.[address] today. Should be monitored as an outpatient. Plan Medical decision making narrative ? History obtained from: Patient. ? History from independent sources: Patient sonTheodore. ? External chart review: Chart reviewed. ? New problems addressed: Chest pain, elevated troponin, elevated blood pressure readings. ? Chronic illnesses addressed: Colon cancer. ? Independent interpretation of studies: Labs, imaging, EKG, and all reports were personally reviewed. ? Diagnostic tests considered but not ordered: None. ? Shared decision making: Findings were reviewed and discussed with the patient and his son, including plans for further workup and treatment options. Questions solicited and answered to satisfaction. Patient agrees with current plan of care. Subjective Date/time seen: 07/27/22 11:03 Interval history: No complaints No chest pain, 3 episodes chest pain yesterday Exam Narrative: General: Well-developed, nontoxic-appearing male in the semi-Medina position in bed. Weight: 69.6 kg. BMI: 23.3. HEENT: Normocephalic, atraumatic. PERRL, EOMI. Sclera anicteric. Oral mucosa moist. Slightly hard of hearing. Neck: Supple. Respiratory: Lungs are clear to auscultation bilaterally. Cardiovascular: Regular rate and rhythm with S1-S2. Chest: No tenderness to palpation over the chest wall. Gastrointestinal: Abdomen is soft, nontender, and nondistended with positive bowel sounds. Negative Ortega sign. No guarding or rebound tenderness. Well-healed low midline abdominal scar. Skin: Warm and dry. No rash or lesions on limited exam. Extremities: No cyanosis, clubbing, or edema. Radial and pedal pulses intact. Neurological: Alert. Cranial nerves 2-12 are grossly intact. No gross focal deficits to casual conversation. Psychiatric: Pleasant and cooperative with normal mood and affect. Judgment and insight intact. Objective Data Vital Signs Vital Signs: Vital Signs - 24 hr 07/26/22 14:00 07/26/22 11:49 07/26/22 16:00 Temperature 97.1 F L Pulse Rate 64 61 59 L Respiratory Rate 16 Blood Pressure 149/85 H Pulse Oximetry 99 Oxygen Delivery 07/26/22 15:15 07/26/22 18:00 07/26/22 20:00 Temperature 97 F L 97.5 F L Pulse Rate 56 L 60 61 Respiratory Rate 22 H 20 Blood Pressure 188/80 H 135/74 Pulse Oximetry 100 98 Oxygen Delivery 07/26/22 21:42 07/26/22 23:34 07/26/22 20:00 Tempera
--- NOTE | 2022-07-27 11:46 | PM.CNCAR ---
Assessment and Plan Assessment and plan (1) Non-ST elevation [place] (NSTEMI): Code(s): I21.4 - Non-ST elevation (NSTEMI) myocardial infarction Status: Acute Plan NSTEMI Plan Heparin, [facility] in AM ASA 81 mg daily Statin History of Present Illness History of Present Illness Consult date/time: 07/27/22 11:46 Reason For Visit: NSTEMI Narrative: presented with recurrent episode of chest pain started yesterday, each episode last 45 to 60 min, pain is pressure like, sever, radiates to shoulder and back, he feels better today. He recent Dx of colon cancer. Review of Systems Review of Systems: 12 points review of system negative except for stated above. 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 Leung. Diverticulitis Surgical History Surgical History (Updated 07/26/22 @ 15:37 by Marilynn Soliz PA-C) History of Achilles tendon repair (11/29/14) Right. History of bilateral inguinal hernia repair (05/30/16) History of colon resection (04/23/22) Hand assisted laparoscopic right hemicolectomy with ileocolic anastomosis, small bowel resection with side to side anastomosis, and extensive adhesiolysis. History of colonoscopy with polypectomy History of lithotripsy (04/15/19) History of partial colectomy (04/09/09) Laparoscopic sigmoid colectomy for sigmoid adenocarcinoma. Family History Family History (Updated 07/26/22 @ 21:58 by Marilynn Soliz PA-C) Other Family history non-contributory Social History Social History (Updated 07/26/22 @ 22:00 by Marilynn Soliz PA-C) Social History: Surrogate medical decision maker: Theodore Bryant (son). Code status: Full code. Smoking packs per day: 0.5 Smoking cigarettes per day: 10.0 Years smoked: 20 Smoking pack-years: 10.00 Smoking status: Former smoker Tobacco type: cigarettes Second hand tobacco smoke exposure: No Smoking end date: 03/23/79 Alcohol intake: current Alcohol use details: On average 1 to 2 alcoholic beverages a week. Substance use: never Substance use type: does not use Lack of Transportation: No Lack of Food: Never True Current Housing: I Have Housing Concerned About Future Housing: No Difficulty Paying Gas/Electric Bills: No Difficulty Paying for Meds: No Currently Unemployed: No Education: Don't Know Difficulty w/ Childcare or Family Care: No Living arrangements: with family Additional living arrangements comments: Lives with spouse in [place]. 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 Spiritual care concerns: No Meds Home Medications and Allergies Home Medications Medication Instructions Recorded Confirmed Type iron 150 mg-vit C 60 mg-folate 1 1 tablet PO DAILY #30 tabs 04/27/22 07/26/22 Rx [id number] tablet (Niferex (Sumalate-Quatrefolic)) ascorbic acid (vitamin C) 1,000 mg 1 g PO DAILY 06/05/22 07/26/22 History tablet cyanocobalamin (vitamin B-12) 1,000 mcg PO DAILY 06/05/22 07/26/22 History 1,000 mcg tablet capecitabine 500 mg tablet 1,500 mg PO DAILY 07/26/22 07/26/22 History capecitabine 500 mg tablet 2,000 mg PO HS 07/26/22 07/26/22 History clobetasol 0.05 % topical ointment topical 07/26/22 History Allergies Allergy/AdvReac Type Severity Reaction Status Date / Time No Known Allergies Allergy Unknown Verified 07/26/22 06:22 Vital Signs Vital Signs - 24 hr 07/26/22 14:00 07/26/22 11:49 07/26/22 16:00 Temperature 36.2 C L Pulse Rate 64 61 59 L Respiratory Rate 16 Blood Pres
[2022-07-27 12:33] LABS: Partial Thromboplastin Time 87.6 SECONDS (22.3-36.8)
[2022-07-27] MEDS: HEPARIN SOD/D5W 100 UNITS/ML 25,000 UNITS/250 ML BAG 9 UNITS IV CONT (14:01)
[2022-07-28] VITALS (28 sets, daily range): BP systolic 127–161; BP diastolic 70–88; PULSE 50–67; RESP 12–20; TEMP 36.2–36.6; O2SAT 97–100
[2022-07-28] MEDS: NITROGLYCERIN OINTMENT 1 INCH DOSE TRANSDERM ×2 (00:06→05:53)
[2022-07-28] MEDS: ACETAMINOPHEN 325 MG TABLET 650 MG PO (00:09)
[2022-07-28 05:38] LABS: Partial Thromboplastin Time > 200.0 SECONDS (22.3-36.8)
--- NOTE | 2022-07-28 08:00 | ECHO_ITS ---
Patient Info Name: Sterling Bryant Age: 82 years : 1940 Gender: Male Ht: 68 in Wt: 153 lbs BSA: 1.83 m2 HR: 69 bpm BP: 145 / 82 mmHg Heart Rhythm: Sinus Rhythm Technical Quality: Good Exam Date: 07/28/2022 9:58 AM Exam Location: [facility] Pulmonary Exam Room: 214 Patient Status: Inpatient Admit Date: 07/26/2022 Staff Ordering Physician: Marilynn Soliz PA-C Cloth Covered Helmet Puller: Marcelina Blackwood RDCS Attending Provider: Crista Dennis DO Referring Physician: Heydi GEE; Exam Type: CA echo doppler color flow Study Info Indications - chest pain carddiomegaly Complete two-dimensional, color flow and Doppler transthoracic echocardiogram is performed. Summary 1. Complete two-dimensional, color flow and Doppler transthoracic echocardiogram is performed. 2. Normal left ventricular size, systolic function no regional wall motion abnormalities. 3. Mild aortic valve regurgitation. Left Ventricle Left ventricular chamber dimension is normal. Left ventricular systolic function is normal, estimated at 50-55%. The left ventricular diastolic function is grade I diastolic dysfunction. Right Ventricle Right ventricular chamber dimension is normal. Left Atria Left atrial chamber dimension is normal. Right Atria Right atrial chamber dimension is normal. Aortic Valve The aortic valve is trileaflet. There is mild aortic valve sclerosis. There is no aortic valve stenosis. There is mild aortic valve regurgitation. Pulmonic Valve The pulmonic valve is normal. Mitral Valve The mitral valve has normal leaflets. Tricuspid Valve The tricuspid valve leaflets are normal. Pericardium/Pleural The pericardium appears normal. Aorta The aortic root size at the sinus of Valsalva is normal. Left Ventricular Outflow Tract Name Value Normal LVOT 2D LVOT Diameter 2.0 cm LVOT Doppler LVOT Peak Gradient 5 mmHg LVOT Mean Gradient 3 mmHg LVOT VTI 24 cm LVOT VTI/AV VTI Ratio 0.8 LVOT Stroke Volume 75 ml LVOT CO 14.0 l/min LVOT CI 7.7 l/min/m2 Pulmonic Valve Name Value Normal RVOT Doppler RVOT Peak Gradient 1 mmHg PV Doppler PV Peak Gradient 4 mmHg Mitral Valve Name Value Normal MV Doppler MV Decel [place] 236 cm/s2 MV PHT 65 ms MV Area (PHT) 3.4 cm2 4.0-5.0 MV Diastolic Functio
--- NOTE | 2022-07-28 09:12 | WPDMODSED ---
Moderate Sedation Note-Pt Data Patient Data Diagnosis: Intermittent chest pain Present Complaint: No complaints this morning Procedure to be performed/Plan: Left heart catheterization Allergies Allergy/AdvReac Type Severity Reaction Status Date / Time No Known Allergies Allergy Unknown Verified 07/26/22 06:22 Home Medications Medication Instructions Recorded Confirmed Type iron 150 mg-vit C 60 mg-folate 1 1 tablet PO DAILY #30 tabs 04/27/22 07/26/22 Rx [id number] tablet (Niferex (Sumalate-Quatrefolic)) ascorbic acid (vitamin C) 1,000 mg 1 g PO DAILY 06/05/22 07/26/22 History tablet cyanocobalamin (vitamin B-12) 1,000 mcg PO DAILY 06/05/22 07/26/22 History 1,000 mcg tablet capecitabine 500 mg tablet 1,500 mg PO DAILY 07/26/22 07/26/22 History capecitabine 500 mg tablet 2,000 mg PO HS 07/26/22 07/26/22 History Current Medications: Active Medications Acetaminophen (Acetaminophen 325 Mg Tablet) 650 mg PO Q6H PRN PRN Reason: Mild Pain (1-3) or Fever Last Admin: 07/28/22 00:09 Dose: 650 mg Ascorbic Acid (Ascorbic Acid 500 Mg Tablet) 1,000 mg PO DAILY [facility] Last Admin: 07/27/22 09:00 Dose: 1,000 mg Cyanocobalamin (Cyanocobalamin 1,000 Mcg Tablet) 1,000 mcg PO DAILY [facility] Last Admin: 07/27/22 09:02 Dose: 1,000 mcg Heparin Sodium (Porcine) (Heparin Sodium 5,000 Units/Ml Vial) 3,000 units IV PUSH PRN PRN PRN Reason: aPTT 55 - 70 seconds Last Admin: 07/26/22 17:37 Dose: 3,000 units Heparin Sodium (Porcine) (Heparin Sodium 5,000 Units/Ml Vial) 4,000 units IV PUSH PRN PRN PRN Reason: aPTT less than 55 seconds Heparin Sodium/Dextrose (Heparin Sodium/D5w 100 Units/Ml) 25,000 units in 250 mls @ 7 mls/hr IV CONT .Q24H CORINNE; Protocol Last Titration: 07/28/22 06:49 Dose: 700 units/hr, 7 mls/hr Nitroglycerin (Nitroglycerin Ointment 1 Inch Dose) 1 inch TRANSDERM Q6HR [facility] Last Admin: 07/28/22 05:53 Dose: 1 inch Ondansetron HCl (Ondansetron Inj 4 Mg/2 Ml Vial) 4 mg IV PUSH Q4H PRN PRN Reason: Nausea Perflutren Lipid Microsphere (Perflutren Lipid Microspheres 1.5 Ml Vial Diluted To 10 Ml Total Volume) 0 ml IV PUSH ONCE PRN; Protocol PRN Reason: adequate visualization Stop: 07/28/22 22:09 Polysaccharide Iron Complex (Polysaccharide Iron Complex 150 Mg Capsule) 150 mg PO BID [facility] Last Admin: 07/27/22 18:17 Dose: 150 mg Sedation/Anesthesia: No previous sedation/anesthesia problems (including family history). 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 Leung. Diverticulitis Surgical History Surgical History (Updated 07/26/22 @ 15:37 by Marilynn Soliz PA-C) History of Achilles tendon repair (11/29/14) Right. History of bilateral inguinal hernia repair (05/30/16) History of colon resection (04/23/22) Hand assisted laparoscopic right hemicolectomy with ileocolic anastomosis, small bowel resection with side to side anastomosis, and extensive adhesiolysis. History of colonoscopy with polypectomy History of lithotripsy (04/15/19) History of partial colectomy (04/09/09) Laparoscopic sigmoid colectomy for sigmoid adenocarcinoma. Family History Family History (Updated 07/26/22 @ 21:58 by Marilynn Soliz PA-C) Other Family history non-contributory Social History Social History (Updated 07/26/22 @ 22:00 by Marilynn Soliz PA-C) Social History: Surrogate medical decision maker: Theodore Bryant (son). Code status: Full code. Smoking packs per day: 0.5 Smoking cigarettes per day: 10.0 Years smoked: 20 Smoking pack-years: 10.00 Smoking status: Former smoker Tobacco ty
--- NOTE | 2022-07-28 10:21 | PC.NURSE ---
Pt to laborer via bed with family at bedside. Heparin gtt paused by laborer nurses
--- NOTE | 2022-07-28 10:41 | PM.IMPN ---
Progress Note: A&P Assessment and Plan (1) Chest pain: Code(s): R07.9 - Chest pain, unspecified Status: Acute Assessment and Plan: Left heart catheterization planned. (2) Elevated troponin: Code(s): R77.8 - Other specified abnormalities of plasma proteins Status: Acute Assessment and Plan: Plan is as detailed above. (3) Colon cancer: Code(s): C18.9 - Malignant neoplasm of colon, unspecified Status: Acute Assessment and Plan: Patient was started on capecitabine [address] Leung. I have not been able to get a hold of him as of yet but I think he needs to be alert to the fact that the patient is currently in the hospital with chest pain to see if he wishes for him to continue the drug at this time. (4) Elevated blood pressure reading: Code(s): R03.0 - Elevated blood-pressure reading, without diagnosis of hypertension Status: Acute Assessment and Plan: Blood pressures have been running pretty consistently in the 140s to 150 systolic. May be related to anxiety or pain. For now will continue to monitor closely and initiate antihypertensives depending on how he trends. (5) Cardiomegaly: Code(s): I51.7 - Cardiomegaly Status: Acute Assessment and Plan: Noted on imaging. Echocardiogram has been ordered. (6) Aneurysm of infrarenal abdominal aorta: Code(s): I71.43 - Infrarenal abdominal aortic aneurysm, without rupture Status: Acute Assessment and Plan: Measuring 3.[address] today. Should be monitored as an outpatient. Plan Medical decision making narrative ? History obtained from: Patient. ? History from independent sources: Patient sonTheodore. ? External chart review: Chart reviewed. ? New problems addressed: Chest pain, elevated troponin, elevated blood pressure readings. ? Chronic illnesses addressed: Colon cancer. ? Independent interpretation of studies: Labs, imaging, EKG, and all reports were personally reviewed. ? Diagnostic tests considered but not ordered: None. ? Shared decision making: Findings were reviewed and discussed with the patient and his son, including plans for further workup and treatment options. Questions solicited and answered to satisfaction. Patient agrees with current plan of care. Subjective Date/time seen: 07/28/22 10:41 Interval history: No chest pain Exam Narrative: General: Well-developed, nontoxic-appearing male in the semi-Medina position in bed. Weight: 69.6 kg. BMI: 23.3. HEENT: Normocephalic, atraumatic. PERRL, EOMI. Sclera anicteric. Oral mucosa moist. Slightly hard of hearing. Neck: Supple. Respiratory: Lungs are clear to auscultation bilaterally. Cardiovascular: Regular rate and rhythm with S1-S2. Chest: No tenderness to palpation over the chest wall. Gastrointestinal: Abdomen is soft, nontender, and nondistended with positive bowel sounds. Negative Ortega sign. No guarding or rebound tenderness. Well-healed low midline abdominal scar. Skin: Warm and dry. No rash or lesions on limited exam. Extremities: No cyanosis, clubbing, or edema. Radial and pedal pulses intact. Neurological: Alert. Cranial nerves 2-12 are grossly intact. No gross focal deficits to casual conversation. Psychiatric: Pleasant and cooperative with normal mood and affect. Judgment and insight intact. Objective Data Vital Signs Vital Signs: Vital Signs - 24 hr 07/27/22 12:00 07/27/22 12:00 07/27/22 12:00 Temperature 96.8 F L Pulse Rate 59 L 65 Respiratory Rate 16 Blood Pressure 133/81 Pulse Oximetry 98 Oxygen Delivery Room Air 07/27/22 14:00 07/27/22 16:00 07/27/22 16:00 Temperature Pulse Rate 64 65 Respiratory Rate Blood Pressure Pulse Oximetry Oxygen Delivery Room Air 07/27/22 16:00 07/27/22 18:00 07/27/22 20:00 Temperature 97.3 F L 97.4 F L Pulse Rate 63 66 63 Respiratory Rate 16 16 Blood Pressure
--- NOTE | 2022-07-28 11:29 | WPDCARDPROC ---
Cardiac Cath Procedure Note Date of procedure:: 07/28/22 Performing physician:: Yosi Berrios MD Indication:: chest pain/ACS Brief clinical history:: this is an 82-year-old man without previous history of coronary disease who enters the hospital with intermittent chest pain and very mild troponin rise. Procedure Procedure performed:: Left ventriculogram coronary angiogram Sedation/Medication given:: fentanyl 25 mg Versed 2 mg case start time 11:08 a.m. case end time 11:24 a.m. sedation provided by Gretta Prado RN, trained observer Access site:: right femoral artery Estimated blood loss:: 25 cc Procedure note:: patient was brought to the cardiac catheterization lab postabsorptive state where the right femoral triangle was prepared usual fashion. Anesthesia was provided with 1% lidocaine infiltrated locally. Using the modified Seldinger technique 5 [place] vascular sheath was placed in the femoral artery after this left heart catheterization was carried out. I used a 5 pigtail catheter To perform left ventricular hemodynamics and a ventriculogram in the 30 degree LIM projection. following this a 5 [place] FL4 catheter was used to engage and inject the left coronary artery in multiple projections and then a 5 [place] JR4 catheter was to engage and inject coronary artery. The cineangiograms were reviewed and the case was terminated the patient was taken to the holding area for manual sheath removal and recovery. He left the engineering lab technician with no evidence of groin hematoma at the were no apparent procedural complications. Findings:: Hemodynamics: Central aortic pressure is 122 over 64 left 2 0 end-diastolic pressure 4 there is no systolic gradient on pullback across the aortic valve. Left ventricle: The LV appears to be normal in size the inferior segment is moderately hypodynamic the remainder of the LV contracts adequately the global ejection fraction is 50-55%. The left main coronary artery is large and free of stenosis. Left anterior descending is a moderate caliber artery it is mildly calcified proximally and it is significantly tortuous proximally. There is mild diffuse disease in the proximal 3rd of the LAD. There is a region of eccentric significant stenosis immediately after the origin of the septal perforating complex. In some views this appears to be minimal in other views it appears to be as much as 80%. The LAD distal to this has mild diffuse disease extending down to and around the apex. The circumflex is large caliber and dominant to the posterior circulation the proximal circumflex and the marginal branches are free of significant lesions. The left PDA has proximal 60-70% stenosis. Right coronary artery is medium in caliber and nondominant giving rise to 2 right ventricular branches. The right coronary is free of disease. Conclusion:: 1. Left coronary dominant circulation with coronary artery disease involving eccentric moderate to high-grade stenosis in the LAD involving very tortuous segment in the artery just after the 1st septal branch where there is likely 80% stenosis. The LAD distal to this has mild diffuse disease. 2. dominant circumflex with moderate 60-70% stenosis of the left PDA 3. inferior hypokinesia overall adequate left ventricular systolic function as detailed above with normal LVEDP 4. medical therapy of this disease will be recommended if he fails this higher risk PCI of the proximal stenosis can be considered. PCI of this lesion would be higher risk because of tortuosity and calcification of this disease segment Yosi Berrios MD [facility]
--- NOTE | 2022-07-28 13:41 | PC.NURSE ---
Pt returned from manager cath lab via bed. No issues noted
[2022-07-28] MEDS: ASCORBIC ACID 500 MG TABLET 1000 MG PO (15:22)
[2022-07-28] MEDS: CYANOCOBALAMIN 1,000 MCG TABLET 1000 MCG PO (15:22)
[2022-07-28] MEDS: POLYSACCHARIDE IRON COMPLEX 150 MG CAPSULE PO (15:22)
[2022-07-28] MEDS: SODIUM CHLORIDE 0.9% IV 1,000 ML 125 ML IV CONT (15:25)
[2022-07-29] VITALS (10 sets, daily range): BP systolic 137–168; BP diastolic 72–79; PULSE 51–91; RESP 18–20; TEMP 36.5–36.7; O2SAT 99–100
[2022-07-29] MEDS: ASCORBIC ACID 500 MG TABLET 1000 MG PO (09:59)
[2022-07-29] MEDS: CLOPIDOGREL BISULFATE 75 MG TABLET PO (10:01)
[2022-07-29] MEDS: CYANOCOBALAMIN 1,000 MCG TABLET 1000 MCG PO (10:01)
[2022-07-29] MEDS: POLYSACCHARIDE IRON COMPLEX 150 MG CAPSULE PO (10:02)
[2022-07-29] MEDS: ROSUVASTATIN 10 MG TABLET 20 MG PO (10:03)
[2022-07-29] MEDS: ASPIRIN 81 MG ENTERIC TABLET PO (10:05)
[2022-07-29] MEDS: METOPROLOL SUCCINATE EXT REL 25 MG TABCR PO (10:07)
--- NOTE | 2022-07-29 11:53 | PM.DS ---
DS: Admitting Diagnosis Discharge Date July 29, 2022 Admitting Diagnosis chest pain DS: Discharge Diagnosis Discharge Diagnosis (1) Chest pain: Code(s): R07.9 - Chest pain, unspecified Status: Acute Assessment and Plan: Left heart catheterization planned. (2) Elevated troponin: Code(s): R77.8 - Other specified abnormalities of plasma proteins Status: Acute Assessment and Plan: Plan is as detailed above. (3) Colon cancer: Code(s): C18.9 - Malignant neoplasm of colon, unspecified Status: Acute Assessment and Plan: Patient was started on capecitabine [address] Leung. I have not been able to get a hold of him as of yet but I think he needs to be alert to the fact that the patient is currently in the hospital with chest pain to see if he wishes for him to continue the drug at this time. (4) Elevated blood pressure reading: Code(s): R03.0 - Elevated blood-pressure reading, without diagnosis of hypertension Status: Acute Assessment and Plan: Blood pressures have been running pretty consistently in the 140s to 150 systolic. May be related to anxiety or pain. For now will continue to monitor closely and initiate antihypertensives depending on how he trends. (5) Cardiomegaly: Code(s): I51.7 - Cardiomegaly Status: Acute Assessment and Plan: Noted on imaging. Echocardiogram has been ordered. (6) Aneurysm of infrarenal abdominal aorta: Code(s): I71.43 - Infrarenal abdominal aortic aneurysm, without rupture Status: Acute Assessment and Plan: Measuring 3.[address] today. Should be monitored as an outpatient. Plan Medical decision making narrative ? History obtained from: Patient. ? History from independent sources: Patient sonTheodore. ? External chart review: Chart reviewed. ? New problems addressed: Chest pain, elevated troponin, elevated blood pressure readings. ? Chronic illnesses addressed: Colon cancer. ? Independent interpretation of studies: Labs, imaging, EKG, and all reports were personally reviewed. ? Diagnostic tests considered but not ordered: None. ? Shared decision making: Findings were reviewed and discussed with the patient and his son, including plans for further workup and treatment options. Questions solicited and answered to satisfaction. Patient agrees with current plan of care. DS: Summary Hospital Course Hospital Course: admitted for chest pain, underwent catheterization Which showed some coronary disease with medical management was initiated. No more chest pain. Patient can follow-up with Cardiology. He will be sent home on aspirin Plavix beta-faraz and nitroglycerin as needed Time Spent with Patient Time attestation: Total time spent providing and/or coordinating discharge services: Exam Narrative: General: Well-developed, nontoxic-appearing male in the semi-Medina position in bed. Weight: 69.6 kg. BMI: 23.3. HEENT: Normocephalic, atraumatic. PERRL, EOMI. Sclera anicteric. Oral mucosa moist. Slightly hard of hearing. Neck: Supple. Respiratory: Lungs are clear to auscultation bilaterally. Cardiovascular: Regular rate and rhythm with S1-S2. Chest: No tenderness to palpation over the chest wall. Gastrointestinal: Abdomen is soft, nontender, and nondistended with positive bowel sounds. Negative Ortega sign. No guarding or rebound tenderness. Well-healed low midline abdominal scar. Skin: Warm and dry. No rash or lesions on limited exam. Extremities: No cyanosis, clubbing, or edema. Radial and pedal pulses intact. Neurological: Alert. Cranial nerves 2-12 are grossly intact. No gross focal deficits to casual conversation. Psychiatric: Pleasant and cooperative with normal mood and affect. Judgment and insight intact. Discharge Plan Discharge Attending physician on discharge: Yosi Arzola Consulting providers: Santiago Campo
--- NOTE | 2022-07-29 12:16 | PM.PNCARD ---
Progress Note: A&P Assessment and Plan (1) Non-ST elevation DE (NSTEMI): Code(s): I21.4 - Non-ST elevation (NSTEMI) myocardial infarction Status: Acute Plan Cardiac cath 07/28 showed: 1.? ? Left coronary dominant circulation with coronary artery disease involving eccentric moderate to high-grade stenosis in the LAD involving very tortuous segment in the artery just after the 1st septal branch where there is likely 80% stenosis.? The LAD distal to this has mild diffuse disease. 2. ? Dominant circumflex with moderate 60-70% stenosis of the left PDA 3. ? Inferior hypokinesia overall adequate left ventricular systolic function as detailed above with normal LVEDP Medical therapy of coronary artery disease was recommended. If he fails medical therapy, higher risk PCI can be considered.? PCI of this LAD lesion would be higher risk because of tortuosity and calcification of the diseased segment. Echocardiogram 07/28 showed normal LV size and function with no wall motion abnormalities, mild AI. Patient is currently chest pain free and has been chest pain free since Thursday. Continue ASA, Plavix, statin. Continue Toprol at 25mg. Will not uptitrate beta faraz dose due to resting HR in the 60s currently already. PRN SL NTG. Okay to discharge home from a cardiac standpoint. Will have patient follow up with Dr. Butler in clinic. Subjective Date/time seen: 07/29/22 12:16 Interval history: Reason for visit: NSTEMI Patient doing well this morning. No chest pain. No shortness of breath. Review of Systems Review of Systems: 8 point ROS obtained. Negative, unless stated in HPI. Exam Const: General: comfortable and no acute distress HENMT: Mouth: Yes moist mucous membranes Eyes: General: appearance normal, both eyes and all related structures Sclera: sclerae normal Neck: Neck: supple Resp: Effort & Inspection: normal respiratory effort Auscultation: clear to auscultation bilaterally Cardio: Rate: regular rate Rhythm: regular rhythm Heart sounds: no murmurs GI: GI Palp: Yes Soft to palpation and No Tenderness to palpation present (GI) Skin: General skin exam: normal color Neuro: Speech: normal speech Extrem: General: normal to inspection Psych: Mental Status: mental status grossly normal Affect: normal affect Objective Data Vital Signs Vital Signs: Vital Signs - 24 hr 07/28/22 12:30 07/28/22 12:45 07/28/22 13:00 Temperature Pulse Rate 55 L 55 L 54 L Pulse Rate [Right Pedal (Dorsalis Pedis) Palpation] Respiratory Rate 12 14 12 Blood Pressure 151/83 H 145/88 H 150/87 H Pulse Oximetry 100 100 100 Oxygen Delivery Room Air Room Air Room Air 07/28/22 13:15 07/28/22 14:00 07/28/22 16:00 Temperature Pulse Rate 51 L 59 L 62 Pulse Rate [Right Pedal (Dorsalis Pedis) Palpation] Respiratory Rate 13 Blood Pressure 157/84 H Pulse Oximetry 100 Oxygen Delivery Room Air 07/28/22 14:15 07/28/22 15:15 07/28/22 16:15 Temperature 36.6 C 36.2 C L 36.3 C L Pulse Rate 59 L 59 L 59 L Pulse Rate [Right Pedal (Dorsalis Pedis) Palpation] Respiratory Rate 16 16 16 Blood Pressure 138/84 130/70 127/70 Pulse Oximetry 100 99 98 Oxygen Delivery 07/28/22 16:00 07/28/22 18:00 07/28/22 20:00 Temperature 36.2 C L Pulse Rate 61 59 L Pulse Rate [Right Pedal (Dorsalis Pedis) Palpation] Respiratory Rate 20 Blood Pressure 143/74 H Pulse Oximetry 98 99 Oxygen Delivery Room Air 07/28/22 20:00 07/28/22 23:39 07/28/22 20:00 Temperature 36.4 C L Pulse Rate 55 L 52 L 67 Pulse Rate [Right Pedal (Dorsalis Pedis) Palpation] Respiratory Rate 20 18 Blood Pressure 161/86 H Pulse Oximetry 99 99 Oxygen Delivery Room Air 07/28/22 22:00 07/29/22 00:00 07/29/22 00:00 Temperature Pulse Rate 53 L 52 L 52 L Pulse Rate [Right Pedal (Dorsalis Pedis) Palpation] Respiratory Rate 18 Blood Pressure Pulse Oximetry 99 Oxygen Delivery Room Air
== END 2022-07-29 14:24 | disposition home or self-care (01) | DRG 281 ==
LOC: ANHED 07:40 → ANHIMU 17:37
PROVIDERS: Emergency Medicine; Internal Medicine; Physician Assistant; Specialist; Admitting Provider Student in an Organized Health Care Education/Training Program; Emergency Provider Emergency Medicine; PCP Family Medicine; Visit Provider Chiropractor
PROC: 4A023N7 Measurement of Cardiac Sampling and Pressure, Left Heart, Percutaneous Approach (ICD-10-PCS; CPT 93452; principal; 2022-07-28 10:30)
DX: I21.4 Non-ST elevation (NSTEMI) myocardial infarction (principal); C18.2 Malignant neoplasm of ascending colon; I25.10 Atherosclerotic heart disease of native coronary artery without angina pectoris; I71.43 Infrarenal abdominal aortic aneurysm, without rupture; I51.7 Cardiomegaly; R77.8 Other specified abnormalities of plasma proteins; K57.30 Diverticulosis of large intestine without perforation or abscess without bleeding; Z87.891 Personal history of nicotine dependence; Z85.038 Personal history of other malignant neoplasm of large intestine
CPT/HCPCS: 36415; 71045; 71260; 74177; 80053; 80061; 83690; 83735; 83880; 84484; 85025; 85610; 85730; 93005; 93306; 93458; 96365; 99285; A9270; C1887; C1894; C9113; J1644; J2250; J3010; J7030; J7040; Q9967

== ENCOUNTER 2022-10-29 08:23 | Outpatient (CLI) | payer MEDICARE, SELFPAY ==
--- NOTE | ~2022-10-29 | CT_ITS ---
EXAMINATION: CT chest abdomen pelvis w con DATE: 10/29/2022 08:50 INDICATION: Malignant neoplasm of the ascending colon TECHNIQUE: Computed tomography (CT) of the chest, abdomen, and pelvis was performed with 100 mL Omnip aque-350 intravenous contrast. Automated exposure control and iterative reconstruction technique were employed. The dose-length product was 652.85 mGy-cm. COMPARISON: 07/26/2022 FINDINGS: CHEST CT: There are couple centrally calcified nodules in the right upper lobe along with calcified bilateral h ilar lymph nodes consistent with old granulomatous disease. No pneumonia, pulmonary edema or pleural effusion. Mild cardiomegaly. No pericardial effusion. Ectatic ascending thoracic aorta measuring up t o 4.4 cm in maximal diameter. No pathologically enlarged thoracic lymphadenopathy. Prominent bridging or nearly bridging osteophytes at multiple levels in the thoracic spine, consistent with diffuse idi opathic skeletal hyperostosis (DISH). ABDOMEN/PELVIS CT: A couple calcified gallstones within the otherwise normal-appearing gallbladder. Diffuse hepatic stea tosis. Spleen, pancreas and left adrenal gland are normal. 8 mm macroscopic fat attenuation right adr enal myelolipoma. 5 mm and 3 mm nonobstructing stones at a lower pole calyx of the left kidney. Right kidney is normal. Postoperative change of prior right hemicolectomy with ileocolic anastomosis at th e hepatic flexure. There are additional anastomoses along the small bowel and sigmoid colon in the pe lvis. There are few scattered colonic diverticula without adjacent inflammatory stranding to suggest diverticulitis. No bowel obstruction. Partially decompressed bladder and prostate are unremarkable. P ostoperative change of likely prior right inguinal hernia repair. No free intraperitoneal gas or flui d. No pathologically enlarged abdominal or pelvic lymphadenopathy. Ectatic infrarenal abdominal aorta measuring up to 3.2 cm in maximal diameter. Mild lumbar levocurvature with mild spondylosis. IMPRESSION: 1. Status post right hemicolectomy for reported colon cancer. No evident metastatic disease. 2. Cardiomegaly. 3. Cholelithiasis. 4. Nonobstructing left nephrolithiasis. 5. 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 Reviewed, dictated and finalized at location B. IMPRESSION: 1. Status post right hemicolectomy for reported colon cancer. No evident metast atic disease. 2. Cardiomegaly. 3. Cholelithiasis. 4. Nonobstructing left nephrolithiasis. 5. 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
[2022-10-29 08:44] LABS: Estimated Glomerular Filt Rate > 60
== END 2022-10-29 08:24 | disposition home or self-care (01) ==
PROVIDERS: PCP Family Medicine; Visit Provider Internal Medicine Medical Oncology
DX: C18.2 Malignant neoplasm of ascending colon (principal); I51.7 Cardiomegaly; K80.20 Calculus of gallbladder without cholecystitis without obstruction; N20.0 Calculus of kidney; I77.819 Aortic ectasia, unspecified site
CPT/HCPCS: 71260; 74177; Q9967

== ENCOUNTER 2022-12-17 08:57 | Inpatient (IN) | payer MEDICARE, SELFPAY ==
[2022-12-17] VITALS (18 sets, daily range): BP systolic 133–190; BP diastolic 76–96; PULSE 57–89; RESP 10–20; TEMP 36.4–36.8; O2SAT 95–100; BMI 24.5
--- NOTE | ~2022-12-17 | MR_ITS ---
EXAMINATION: MR MRCP wo/w con/w 3D wo ind DATE: 12/18/2022 07:14 INDICATION: Right upper quadrant abdominal pain TECHNIQUE: Magnetic resonance imaging (MRI) of the abdomen was performed without and with 15 mL Multi sonali intravenous contrast. Sequences included coronal T2-weighted SS-FSE, coronal T2-weighted FS SS- FSE, coronal T2-weighted FS FIESTA, axial T2-weighted FS FIESTA, axial T2-weighted FIESTA, sagittal T 2-weighted SS-FSE, axial T1-weighted dual-echo FSPGR, axial T2-weighted SS-FSE, axial T1-weighted LAV A, axial T2-weighted STIR FSE. Thick-slab T2-weighted FRFSE-XL images were obtained for magnetic reso nance cholangiopancreatography (MRCP). Rotating maximum intensity projection 3-D reconstructions of t he volumetric data were created by the technologist. Postcontrast sequences included a time course of axial T1-weighted LAVA. COMPARISON: CT dated 11/08/22 FINDINGS: ABDOMEN MRI: Mild cardiomegaly. Mild increased signal in the dependent lungs which could represent mild atelectasi s, pulmonary edema or less likely pneumonia. Trace bilateral pleural effusion. No pericardial effusio n. Some ectasia of the ascending thoracic aorta measuring up to 4.4 cm in maximal diameter. Liver, sp sergio, pancreas and bilateral adrenal glands are normal. Bilateral subcentimeter nonenhancing T2 hyper intense renal cysts. 1 cm low signal intensity gallstone at the neck of the gallbladder and additiona l 9 mm low signal intensity stone at the cystic duct. There is also some dependently layering sludge within the gallbladder which is dilated to 4.1 cm. There is mild edematous gallbladder wall thickenin g with prominent pericholecystic inflammatory edema consistent with acute cholecystitis. Visualized p ortions of the bowels are unremarkable. No pathologically enlarged abdominal lymphadenopathy. Mild fab mbar spondylosis. Normal bone marrow signal throughout. ABDOMEN MRCP: Common bile duct is normal measuring up to 5-6 mm in maximal diameter with no strictures, mucosal irr egularities or filling defects to suggest choledocholithiasis. Main pancreatic duct is also normal. N o intrahepatic ductal or ductal dilation. IMPRESSION: 1. Cholelithiasis and acute cholecystitis. 2. Cardiomegaly. 3. Trace bilateral pleural effusions with mild dependent lung disease in the bilateral lower lobes mo st likely atelectasis with differential including mild pulmonary edema or less likely pneumonia. Reviewed, dictated and finalized at location A. IMPRESSION: 1. Cholelithiasis and acute cholecystitis. 2. Cardiomegaly. 3. Trace bilateral pleural effusions with mild dependent lung disease in the bi lateral lower lobes most likely atelectasis with differential including mild pu lmonary edema or less likely pneumonia.
--- NOTE | ~2022-12-17 | US_ITS ---
EXAMINATION: US right upper quadrant DATE: 12/17/2022 10:24 INDICATION: Right upper quadrant abdominal pain. TECHNIQUE: Multiple grayscale and Doppler ultrasound images of the abdomen were obtained. COMPARISON: CT 10/29/2022 FINDINGS: The visualized portions of the head and body of the pancreas are normal. The liver is aisha l without focal lesion. The gallbladder is normal in size and contains a gallstone. No gallbladder wa ll thickening or sonographic Ortega sign. The common duct is normal measures 3 mm. There is a 3.3 cm fusiform aneurysm of infrarenal aorta. IMPRESSION: 1. Cholelithiasis. No evidence of acute cholecystitis. 2. 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 Reviewed, dictated and finalized at location E.
--- NOTE | ~2022-12-17 | US_ITS ---
EXAMINATION: US perc cholecystostomy w imag DATE: 12/19/2022 14:39 INDICATION: Acute cholecystitis TECHNIQUE: The procedure including the risks and benefits was discussed with the patient. Risks discu ssed included bleeding including hemorrhage and bile peritonitis. Oral and written consent were obtai duyen. The patient was confirmed to be receiving appropriate antibiotic coverage. The skin overlying t he liver and gallbladder was prepped and draped in usual sterile fashion. Anesthetic was administere d with 1% lidocaine subcutaneously. An 8.5 Fr catheter was inserted through liver parenchyma into th e gallbladder by trocar technique. The metal stiffener and trocar needle were removed, and the pigtai l tip was locked. Bile was aspirated and sent for culture. The catheter was stitched to the skin with suture. Anabiotic ligament and a sterile dressing were applied. There were no immediate complication s. FINDINGS: The gallbladder is dilated with wall thickening and stones and sludge, consistent with acut e cholecystitis. Ultrasound images demonstrate the catheter within the gallbladder. 20 mL bile was as pirated and sent to the lab for Gram stain and aerobic, anaerobic and fungal cultures. Final images show the formed pigtail catheter tip in the gallbladder. IMPRESSION: 1. Successful ultrasound-guided cholecystostomy tube placement. 2. 20 mL bile was sent for aerobic, anaerobic, and fungal cultures. 3. The catheter will be managed by Dr. Yusuf. A catheter cholangiogram may be performed not less than 48 hours after tube placement if clinically indicated to assess cystic duct patency. If cholecystect tracy is not eventually performed and the infectious episode has resolved, the tube may be removed over a guidewire, preferably not less than 3 weeks after placement to allow time for a mature catheter tr act to form to prevent bile leakage and peritonitis. Reviewed, dictated and finalized at location A. IMPRESSION: 1. Successful ultrasound-guided cholecystostomy tube placement. 2. 20 mL bile was sent for aerobic, anaerobic, and fungal cultures. 3. The catheter will be managed by Dr. Yusuf. A catheter cholangiogram may be pe rformed not less than 48 hours after tube placement if clinically indicated to assess cystic duct patency. If cholecystectomy is not eventually performed and the infectious episode has resolved, the tube may be removed over a guidewire, preferably not less than 3 weeks after placement to allow time for a mature ca theter tract to form to prevent bile leakage and peritonitis.
--- NOTE | ~2022-12-17 | NM_ITS ---
EXAMINATION: NM hepatobiliary w pharm DATE: 12/18/2022 11:15 INDICATION: Right upper quadrant abdominal pain. Gallstones and elevated liver function tests. COMPARISON: Ultrasound dated 12/17/2022 TECHNIQUE: 5.23 mCi Tc-99m mebrofenin (Choletec) was administered intravenously. Scintigraphic image s of the abdomen were obtained for one hour. 2 mg morphine was administered by slow intravenous infus ion, and imaging was continued for 30 minutes. FINDINGS: There is normal clearance of radiotracer from the blood pool. There is homogeneous tracer uptake by t he liver. Activity progresses to common bile duct by 15 minutes with activity seen within the duoden um at 20 minutes. There is progressive accumulation of activity in the bowel to the initial 60 minute s as well as during the 30 minutes following morphine injection without evident gallbladder activity. IMPRESSION: 1. No visible gallbladder activity including during the 30 minutes following morphine administration consistent with acute cholecystitis. Reviewed, dictated and finalized at location A. IMPRESSION: 1. No visible gallbladder activity including during the 30 minutes following m orphine administration consistent with acute cholecystitis.
--- NOTE | 2022-12-17 09:08 | ECG_ITS ---
Measurements Intervals [place] Rate: 56 P: -52 TX: 200 QRS: -18 QRSD: 96 T: -1 QT: 436 QTc: 422 Interpretive Statements SINUS BRADYCARDIA WITH FIRST DEGREE AV BLOCK BORDERLINE ECG COMPARED TO ECG 07/26/2022 21:13:08 NO SIGNIFICANT CHANGES Electronically Signed On 12-17-2022 11:10:23 CDT by Rachid Stevenson D.O.
[2022-12-17] MEDS: MORPHINE SULFATE (*CRX) 4 MG/ML INJ IV PUSH (10:17)
[2022-12-17] MEDS: ONDANSETRON INJ 4 MG/2 ML VIAL IV PUSH ×2 (10:17→13:05)
[2022-12-17 10:20] LABS: Basophils Percent Auto 0.4 % (0.2-1.2); Eosinophils Percent Auto 0.1 % (0-4.4); Hematocrit 41.3 % (42.0-52.0); Immature Granulocyte Absolute 0.04 K/mm3 (0.00-0.031); Immature Granulocyte Percent A 0.4 % (0-0.5); Lymphocytes Absolute Auto 1.39 K/mm3 (0.9-3.2); Lymphocytes Percent Auto 13.3 % (18.3-44.2); Mean Corpuscular HGB Conc 33.9 g/dl (32-36); Mean Corpuscular Hemoglobin 33.1 pg (26-34); Mean Corpuscular Volume 97.6 fl (80-100); Mean Platelet Volume 8.9 fl (7.4-10.4); Monocytes Absolute Auto 0.6 K/mm3 (0.1-0.6); Neutrophils Absolute Auto 8.3 K/mm3 (1.3-6.7); Neutrophils Percent Auto 79.8 % (45.5-73.1); Platelet Count Result 180 k/mm3 (150-375); Red Blood Count 4.23 M/mm3 (4.6-6.20); Red Cell Distribution Width 12.6 % (11.5-14.5); White Blood Count 10.4 K/mm3 (4.5-10.0)
[2022-12-17 10:32] LABS: Prothrombin Time 13.5 Seconds (11.1-14.7)
[2022-12-17 10:33] LABS: Partial Thromboplastin Time 26.6 SECONDS (22.3-36.8)
[2022-12-17 10:35] LABS: Alanine Aminotransferase 79 U/L (6-50); Albumin Level 4.5 g/dL (3.5-5.1); Alkaline Phosphatase 82 U/L (38-126); Anion Gap 10 mmol/L (8-16); Aspartate Amino Transferase 93 U/L (17-59); Bilirubin,Total 1.8 mg/dL (0.2-1.3); Blood Urea Nitrogen 14 mg/dL (9-20); Calcium 9.4 mg/dL (8.4-10.2); Carbon Dioxide 23 mmol/L (22-30); Chloride 104 mmol/L (98-107); Estimated CRCL calculation 64 ml/min; Estimated Glomerular Filt Rate > 60; Glucose 112 mg/dL (65-110); Lipase 49 U/L (23-300); Potassium 3.9 mmol/L (3.4-5.0); Sodium 137 mmol/L (137-145)
--- NOTE | 2022-12-17 11:59 | ED.ABDPAIN ---
HPI - Abdominal Pain General Chief Complaint: Abdominal Pain Stated Complaint: abd pain Time Seen by Provider: 12/17/22 09:03 History of Present Illness HPI narrative: Patient is an 82-year-old male who presents ER with abdominal pain. Sudden onset right upper quadrant radiating to the right back. No nausea or vomiting. Not associate with eating or drinking. Has history of gallstones but has not had issues with them. Denies fevers or chills. History obtained through interpretive services as well as through the son who also speaks Yoruba. Related Data Allergies Allergy/AdvReac Type Severity Reaction Status Date / Time No Known Allergies Allergy Unknown Verified 12/17/22 09:36 Review of Systems Review of Systems: All systems reviewed & are unremarkable except as noted in HPI and below Constitutional: Constitutional: Denies chills, Denies fatigue and Denies fever(s) Cardiovascular: Cardiovascular: Reports no additional cardiovascular complaints Respiratory: Respiratory: Reports no additional respiratory complaints Gastrointestinal: Gastrointestinal: Reports abdominal pain, Denies diarrhea, Denies nausea and Denies vomiting Genitourinary: Genitourinary: Reports no additional male genitourinary complaints [facility] Past Medical History Medical History (Updated 12/17/22 @ 18:22 by Feliz Liu MD) Achilles tendon tear Aneurysm of infrarenal abdominal aorta Bilateral inguinal hernia Cholelithiasis Colon cancer 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 Leung. Coronary artery disease Diverticulitis Surgical History Surgical History History of Achilles tendon repair (11/29/14) Right. History of bilateral inguinal hernia repair (05/30/16) History of cardiac catheterization 07/2022 with findings of coronary artery disease with recommendation of medical therapy due to high risk for PCI, on dual anti-platelet therapy History of colon resection (04/23/22) Hand assisted laparoscopic right hemicolectomy with ileocolic anastomosis, small bowel resection with side to side anastomosis, and extensive adhesiolysis. History of colonoscopy with polypectomy History of lithotripsy (04/15/19) History of partial colectomy (04/09/09) Laparoscopic sigmoid colectomy for sigmoid adenocarcinoma. Family History Family History Other Family history non-contributory Social History Social History Social History: Surrogate medical decision maker: Theodore Bryant (son). Code status: Full code. Smoking packs per day: 0.5 Smoking cigarettes per day: 10.0 Years smoked: 20 Smoking pack-years: 10.00 Smoking status: Former smoker Second hand tobacco smoke exposure: No Alcohol intake: current Alcohol use details: On average 1 to 2 alcoholic beverages a week. Substance use: never Substance use type: does not use Lack of Transportation: No Lack of Food: Never True Current Housing: I Have Housing Concerned About Future Housing: No Difficulty Paying Gas/Electric Bills: No Difficulty Paying for Meds: No Currently Unemployed: No Education: Don't Know Difficulty w/ Childcare or Family Care: No Living arrangements: with family Additional living arrangements comments: Lives with spouse in [place]. 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 Spiritual care concerns: No Exam Narrative: GENERAL: Well-appearing, well-nourished, and in no acute distress. HEAD: Normocephalic, atraumatic. EYES: PERRL and EOMI. ENT: Mucous membranes moist. CHEST: Clear to auscultation. No respiratory distress
[2022-12-17] MEDS: PIPERACILLN/TAZ 3.375GM/NS50ML 3.375 GM/50 ML BAG IVPB ×2 (13:02→17:01)
[2022-12-17] MEDS: MORPHINE SULFATE (*CRX) 4 MG/ML INJ 2 MG IV PUSH (13:05)
--- NOTE | 2022-12-17 13:16 | WPDGICN ---
Assessment and Plan Assessment and plan (1) RUQ abdominal pain: Code(s): R10.11 - Right upper quadrant pain Status: Resolved Assessment and Plan: Patient with right upper quadrant pain appears to be most likely coming from the gallstones that now appears symptomatic. Elevated LFTs to me suggest these are symptomatic. Imaging studies do not confirm cholecystitis however. Plan is to obtain a HIDA scan and follow-up surgical evaluation for possible cholecystectomy. Will continue to monitor LFTs. (2) Cholelithiasis: Code(s): K80.20 - Calculus of gallbladder without cholecystitis without obstruction Status: Resolved Assessment and Plan: Gallstones noted on ultrasound imaging. These been known for some time. Bile duct appears normal. Elevated LFTs may be from cholecystitis. There is no evidence of metastatic disease from his known felt to be cured colon cancer. Surgical evaluation pending at this time. We will check HIDA scan. (3) Elevated LFTs: Code(s): R79.89 - Other specified abnormal findings of blood chemistry Status: Acute Assessment and Plan: Elevated LFTs probably related to cholecystitis but no evidence of metastatic liver disease. No evidence common bile duct gallstone on current imaging. Will continue to monitor LFTs. (4) History of colon cancer: Code(s): Z85.038 - Personal history of other malignant neoplasm of large intestine Status: Acute Assessment and Plan: Patient has had 2 surgeries for 2 prior colon cancers. Initially 1994 again in April of 2022. Currently felt to be cured and free of disease. GI Consult Note Consult date/time: 12/17/22 13:16 Reason for consult: Right upper quadrant pain and gallstones HPI: Sterling Bryant is a 82 year old male I am asked to see at the request of the emergency room. Patient in his usual state of health till last evening he developed right upper quadrant abdominal pain , radiating to his back. Pain has stayed in the right side. For this reason he presented to the emergency room today. Ultrasound confirms gallstones. Bile duct appears normal size. He has a modest elevation of LFTs. Patient denies a fever. He has had no nausea or vomiting. Patient has a distant history of colon cancer resected in 1994. Earlier this year in April of 2022 he was found to have gallstones in the right upper quadrant. Imaging studies revealed that he also had a right colon mass. Patient subsequently had resection of an early stage I , second episode of right colon cancer. Patient recovered from this without incident. Patient now has recurrent right upper quadrant abdominal pain. Review of Systems Review of Systems: Review of systems noncontributory. [facility] Past Medical History Medical History Achilles tendon tear Bilateral inguinal hernia Cholelithiasis Colon cancer 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 Leung. Diverticulitis Surgical History Surgical History History of Achilles tendon repair (11/29/14) Right. History of bilateral inguinal hernia repair (05/30/16) History of colon resection (04/23/22) Hand assisted laparoscopic right hemicolectomy with ileocolic anastomosis, small bowel resection with side to side anastomosis, and extensive adhesiolysis. History of colonoscopy with polypectomy History of lithotripsy (04/15/19) History of partial colectomy (04/09/09) Laparoscopic sigmoid colectomy for sigmoid adenocarcinoma. Family History Family History Other Family history non-contributory Social History Social History (Reviewed
--- NOTE | 2022-12-17 13:42 | PM.CNGS ---
Assessment and Plan Assessment and plan (1) Cholelithiasis: Qualifiers: Cholelithiasis location: gallbladder Cholecystitis presence: without cholecystitis Code(s): K80.20 - Calculus of gallbladder without cholecystitis without obstruction Status: Resolved Assessment and Plan: Patient presents with RUQ abdominal pain. RUQ ultrasound shows a single gallstone measuring about 1.5 cm, but no evidence of cholecystitis. Workup also showed elevated LFTs with a total bilirubin of 1.8. In review of his chart, there is a CT scan from October that looks like he had two gallstones close to the neck of the gallbladder. It is possible he has passed a stone. His abdominal pain has improved since having Morphine. No signs of peritonitis on exam. Agree with GI consultation and MRCP to evaluate for a common duct stone. HIDA scan has also been ordered. Continue IV antibiotics and analgesics. I will add maintenance IV fluids while he is NPO. The patient is additionally on Plavix, which was last taken yesterday. If there is more evidence to suggest acute cholecystitis, then we may need to consider placement of a cholecystostomy tube given his high risk for bleeding with the antiplatelet therapy. Continue medical treatment for now while awaiting further workup. (2) Elevated LFTs: Code(s): R79.89 - Other specified abnormal findings of blood chemistry Status: Acute Assessment and Plan: Mildly elevated with total bilirubin 1.8. US showed a gallstone, no evidence of cholecystitis, and a normal CBD. MRCP pending. (3) Antiplatelet or antithrombotic long-term use: Code(s): Z79.02 - alf (current) use of antithrombotics/antiplatelets Status: Acute Assessment and Plan: Hold Plavix for now. Last dose of Plavix was yesterday morning around 9:00 am. (4) Coronary artery disease: Code(s): I25.10 - Atherosclerotic heart disease of [place] coronary artery without angina pectoris Status: Acute Assessment and Plan: Admitted for chest pain/ACS in July of 2022. He had cardiac catheterization with evidence of coronary artery disease. Recommended that this be treated medically given high risk for PCI. He was discharged on dual anti-platelet therapy and is still taking Plavix. (5) History of colon cancer: Code(s): Z85.038 - Personal history of other malignant neoplasm of large intestine Status: Acute Assessment and Plan: S/p JERMAINE right hemicolectomy, small bowel resection with side to side anastomosis, extensive adhesiolysis on 04/23/22. Path showed pT3N1c. Followed up with Oncology and was initially on oral chemotherapy, which was stopped after his episode of chest pain in July due to concern of this being caused by his chemo. Follows with Dr. Leung every 3 months for routine monitoring. Plan I have discussed the patient's case and plan of care with Dr. Yusuf. Thank you for allowing us to see the patient in consultation and we will continue to follow along with you. History of Present Illness Consult details Consult date: 12/17/22 Reason for consult: other (Cholelithiasis, RUQ abdominal pain) Requesting physician: Feliz Liu MD Narrative: This is an 82-year-old man who presented to the ER today with complaints of RUQ abdominal pain x 1 day. He reports having rice cakes with honey last night for dinner around 6:30 pm. He had a sudden onset of RUQ abdominal pain around 10:30 pm last evening. The pain radiated to his epigastric area and his mid back. Denies any associated symptoms. His pain persisted and he came into the ER for evaluation. In the ER, labs significant for WBC count 10,400, total bilirubin 1.8, AST 93, ALT 79, and lipase normal. RUQ abdominal ultrasound showed a normal gallbladder containing a gallstone, and a 3.3 cm infrarenal aortic aneurysm. Common bile duct measures 3 mm. The patient was admitted and started on IV Zosyn. He was given IV morphine for his abdominal pain
[2022-12-17 13:59] LABS: Alanine Aminotransferase 78 U/L (6-50); Albumin Level 4.3 g/dL (3.5-5.1); Alkaline Phosphatase 83 U/L (38-126); Aspartate Amino Transferase 84 U/L (17-59)
--- NOTE | 2022-12-17 14:10 | ADMGEN ---
This patient, Sterling Bryant, was admitted to [facility] Surg Room 306-02. Patient/family oriented to hospital policies and general routines including ID bracelet, bed and alarms, visiting hours, pain management, procedures, bathroom and other care routines, personal items, smoking policy, room service/diet, and visiting hours. Information on how to activate the Rapid Response Team has been discussed. Patient/Family are encouraged to report perceived risks to care and to ask questions if they do not understand what they are told or what they should do.
--- NOTE | 2022-12-17 14:38 | PM.IMHP ---
H&P: HPI History of Present Illness Date/Time: 12/17/22 15:00 Chief Complaint: Abdominal pain. Narrative: This is a very pleasant 82-year-old male with colon cancer status post right hemicolectomy and oral chemotherapy and coronary artery disease who presented to the emergency department via EMS from home for evaluation of abdominal pain. The patient provides the following history; his son provides additional information with the patient's permission and helps translate as the patient primary language is Kyr[place]. He had rice cakes and honey last night for dinner and several hours thereafter he developed sudden onset right upper quadrant abdominal pain radiating somewhat into the back and the right flank. Associated symptoms include nausea but no vomiting. His discomfort has persisted and he came into the ER for evaluation. He has never had similar symptoms. He has been told he has gallstones in the past. No history of cholecystitis, pancreatitis, or peptic ulcers. At the time my evaluation he is resting comfortably. He still has some mild discomfort but nothing significant. He denies fever, chills, sweats, chest pain, shortness a breath, pleuritic pain, vomiting, diarrhea, dysuria, and hematuria. In the ED: Vital signs were stable on arrival however blood pressures were elevated, likely due to discomfort (they have improved). Labs were significant for a WBC count of 10.4, hemoglobin 14.0, total bilirubin 2.0, AST 84, ALT 78, alkaline phosphatase 83, lipase 49. Right upper quadrant ultrasound showed cholelithiasis without evidence of acute cholecystitis. He has been admitted to the floor in this setting for supportive care and GI and surgery consults. Review of Systems Review of Systems: Twelve systems were reviewed and are negative except for as per HPI. 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 Leung. Coronary artery disease Diverticulitis Surgical History Surgical History History of Achilles tendon repair (11/29/14) Right. History of bilateral inguinal hernia repair (05/30/16) History of cardiac catheterization 07/2022 with findings of coronary artery disease with recommendation of medical therapy due to high risk for PCI, on dual anti-platelet therapy History of colon resection (04/23/22) Hand assisted laparoscopic right hemicolectomy with ileocolic anastomosis, small bowel resection with side to side anastomosis, and extensive adhesiolysis. History of colonoscopy with polypectomy History of lithotripsy (04/15/19) History of partial colectomy (04/09/09) Laparoscopic sigmoid colectomy for sigmoid adenocarcinoma. Family History Family History Other Family history non-contributory Social History Social History Social History: Surrogate medical decision maker: Theodore Bryant (son). Code status: Full code. Smoking packs per day: 0.5 Smoking cigarettes per day: 10.0 Years smoked: 20 Smoking pack-years: 10.00 Smoking status: Former smoker Second hand tobacco smoke exposure: No Alcohol intake: current Alcohol use details: On average 1 to 2 alcoholic beverages a week. Substance use: never Substance use type: does not use Lack of Transportation: No Lack of Food: Never True Current Housing: I Have Housing Concerned About Future Housing: No Difficulty Paying Gas/Electric Bills: No Difficulty Paying for Meds: No Currently Une
[2022-12-17] MEDS: SODIUM CHLORIDE 0.9% IV 1,000 ML 100 ML IV CONT (16:54)
[2022-12-18] MEDS: PIPERACILLN/TAZ 3.375GM/NS50ML 3.375 GM/50 ML BAG IVPB ×4 (00:11→17:40)
[2022-12-18] MEDS: SODIUM CHLORIDE 0.9% IV 1,000 ML 100 ML IV CONT (03:00)
[2022-12-18 03:10] LABS: Appearance Urine Clear (Clear); Bilirubin Urine Negative (Negative); Blood Urine Negative (Negative); Color Urine Yellow (Yellow); Glucose Urine UA Negative (Negative); Ketones Urine Negative (Negative); Leukocyte Esterase Ur Negative LEU/UL (Negative); Nitrate Urine Negative (Negative); Protein Urine Negative (Negative); Specific Grav Ur 1.025 (1.001-1.035); pH Urine 6.5 (5.0-9.0)
[2022-12-18 03:20] LABS: Add Urine Microscopic? NO
[2022-12-18 05:32] VITALS: BP 111/61; PULSE 72; RESP 14; TEMP 37.2; O2SAT 96
[2022-12-18 06:10] LABS: Hematocrit 37.6 % (42.0-52.0); Mean Corpuscular HGB Conc 34.6 g/dl (32-36); Mean Corpuscular Hemoglobin 33.7 pg (26-34); Mean Corpuscular Volume 97.4 fl (80-100); Mean Platelet Volume 9.1 fl (7.4-10.4); Platelet Count Result 177 k/mm3 (150-375); Red Blood Count 3.86 M/mm3 (4.6-6.20); Red Cell Distribution Width 12.9 % (11.5-14.5); White Blood Count 12.8 K/mm3 (4.5-10.0)
[2022-12-18 06:30] LABS: Alanine Aminotransferase 99 U/L (6-50); Albumin Level 3.7 g/dL (3.5-5.1); Alkaline Phosphatase 66 U/L (38-126); Anion Gap 7 mmol/L (8-16); Aspartate Amino Transferase 97 U/L (17-59); Bilirubin,Total 2.2 mg/dL (0.2-1.3); Blood Urea Nitrogen 17 mg/dL (9-20); Calcium 8.1 mg/dL (8.4-10.2); Carbon Dioxide 20 mmol/L (22-30); Chloride 105 mmol/L (98-107); Estimated CRCL calculation 51 ml/min; Estimated Glomerular Filt Rate > 60; Glucose 102 mg/dL (65-110); Lipase 27 U/L (23-300); Magnesium 2.1 mg/dL (1.6-2.3); Potassium 3.6 mmol/L (3.4-5.0); Sodium 132 mmol/L (137-145)
--- NOTE | 2022-12-18 06:32 | PC.NURSE ---
At 0625, pt left floor for MRCP.
--- NOTE | 2022-12-18 08:47 | PM.IMPN ---
Progress Note: A&P Assessment and Plan (1) Cholelithiasis: Code(s): K80.20 - Calculus of gallbladder without cholecystitis without obstruction Status: Acute (2) Elevated LFTs: Code(s): R79.89 - Other specified abnormal findings of blood chemistry Status: Acute (3) Right sided abdominal pain: Code(s): R10.9 - Unspecified abdominal pain Status: Acute (4) Coronary artery disease: Code(s): I25.10 - Atherosclerotic heart disease of [place] coronary artery without angina pectoris Status: Acute Plan Gallstone and acute cholecystitis The patient presented to the emergency department for evaluation of right upper quadrant pain and nausea Right upper quadrant ultrasound showed cholelithiasis without evidence of cholecystitis Patient has a leukocytosis, and afebrile HIDA and MRCP suggests acute cholecystitis Patient on Zosyn Elevated total bilirubin, liver enzymes, suspecting bile duct obstruction MRCP has been ordered to further evaluate further. HIDA scan has also been ordered. No biliary obstruction on MRCP Continue empiric antibiotics. Analgesics and antiemetics are available as needed We consult consult GI and general surgeon He had a 7 mm stone in the left kidney on recent CT but none noted on the right. UA ordered as he deficit has some tenderness on the right flank as well. No acute issues with chest pain. Subjective Date/time seen: 12/18/22 08:47 Interval history: I saw exam patient, patient still has right upper quadrant pain, denies nausea vomiting diarrhea. Exam Narrative: General:?Well-developed, nontoxic-appearing male in the semi-[place] position in bed. Weight: 71 kg. BMI: 24.5. HEENT:??Normocephalic, atraumatic.? PERRL, EOMI. Sclera anicteric.? Oral mucosa moist. Slightly hard of hearing. Neck:??Supple. Respiratory:?Lungs are clear to auscultation bilaterally. Cardiovascular:??Regular rate and rhythm with S1-S2.? Gastrointestinal:?? tender to palpation over the right side of the abdomen, more so in the right lateral mid abdomen. Negative Ortega sign.? No guarding or rebound tenderness. Well-healed low midline abdominal scar. Skin:??Warm and dry.? No rash or lesions on limited exam. Extremities:??No cyanosis, clubbing, or edema. Radial and pedal pulses intact. Neurological:??Alert.? Cranial nerves 2-12 are grossly intact. No gross focal deficits to casual conversation. Psychiatric:??Pleasant and cooperative with normal mood and affect.? Judgment and insight intact. Objective Data Vital Signs Vital Signs: Vital Signs - 24 hr 12/17/22 09:00 12/17/22 10:11 12/17/22 10:28 Temperature 97.6 F Pulse Rate 60 57 L 59 L Respiratory Rate 20 11 L 16 Blood Pressure 190/93 H Pulse Oximetry 100 100 98 Oxygen Delivery Room Air 12/17/22 10:32 12/17/22 10:45 12/17/22 11:00 Temperature Pulse Rate 58 L 76 60 Respiratory Rate 15 18 12 Blood Pressure Pulse Oximetry 97 100 Oxygen Delivery 12/17/22 11:15 12/17/22 11:42 12/17/22 12:13 Temperature Pulse Rate 58 L 61 67 Respiratory Rate 15 12 10 L Blood Pressure Pulse Oximetry 98 99 Oxygen Delivery 12/17/22 12:15 12/17/22 12:30 12/17/22 12:31 Temperature Pulse Rate 66 63 66 Respiratory Rate 10 L 12 16 Blood Pressure 164/94 H Pulse Oximetry 100 98 99 Oxygen Delivery 12/17/22 12:45 12/17/22 13:02 12/17/22 13:15 Temperature Pulse Rate 67 67 69 Respiratory Rate 14 11 L 17 Blood Pressure Pulse Oximetry 99 99 95 Oxygen Delivery 12/17/22 13:28 12/17/22 14:13 12/17/22 16:35 Temperature 98.2 F Pulse Rate 67 61 Respiratory Rate 15 18 Blood Pressure 143/96 H 150/83 H Pulse Oximetry 97 100 Oxygen Delivery Room Air 12/17/22 22:00 12/18/22 05:32 Temperature 97.8 F 98.9 F Pulse Rate 89 72 Respiratory Rate 12 14 Blood Pressure 133/76 111/61 Pulse Oximetry 97 96 Oxygen Delivery Intake/Output Intake/Output: Intake & Output
[2022-12-18] MEDS: MORPHINE SULFATE (*CRX) 2 MG/ML INJ IV PUSH (10:12)
[2022-12-18 11:09] VITALS: PULSE 103
[2022-12-18] MEDS: METOPROLOL SUCCINATE EXT REL 25 MG TABCR PO (11:09)
[2022-12-18] MEDS: ROSUVASTATIN 10 MG TABLET 20 MG PO (11:11)
--- NOTE | 2022-12-18 13:10 | PM.PNGS ---
Progress Note: A&P Assessment and Plan (1) Acute calculous cholecystitis: Code(s): K80.00 - Calculus of gallbladder with acute cholecystitis without obstruction Status: Acute Assessment and Plan: HIDA scan and MRCP suggest acute calculous cholecystitis. WBC count and LFTs up slightly today. Continue IV Zosyn Will keep NPO except ice chips/sips with meds Continue to hold Plavix (held since 12/16 at 9am). Reassess labs and patient tomorrow. Discussed with the patient's son the possibility of needing either cholecystostomy tube placement vs cholecystectomy depending on how he progresses. (2) Elevated LFTs: Code(s): R79.89 - Other specified abnormal findings of blood chemistry Status: Acute Assessment and Plan: LFTs up slightly today. Likely related to acute cholecystitis. MRCP negative for common bile duct stone. (3) Antiplatelet or antithrombotic long-term use: Code(s): Z79.02 - learning coach (current) use of antithrombotics/antiplatelets Status: Acute Assessment and Plan: Hold Plavix for possible surgery vs cholecystostomy tube placement. (4) Coronary artery disease: Code(s): I25.10 - Atherosclerotic heart disease of [place] coronary artery without angina pectoris Status: Acute (5) History of colon cancer: Code(s): Z85.038 - Personal history of other malignant neoplasm of large intestine Status: Acute Plan I have discussed the patient's case and plan of care with Dr. Yusuf. Subjective Subjective Date/Time Seen: 12/18/22 13:10 Patient reports: afebrile Interval history: Patient still having some RUQ abdominal pain with some improvement. No nausea. He is currently NPO and had HIDA scan and MRCP today. WBC up slightly to 12.8 today and LFTs up slightly. Exam Const: General: comfortable and no acute distress GI: Inspection: non-distended GI Palp: Yes Soft to palpation, Yes Tenderness to palpation present (GI) (RUQ) and No Guarding due to palpation present (GI) Auscultation: normal bowel sounds Objective Data Vital Signs Vital Signs: Vital Signs - 24 hr 12/17/22 13:15 12/17/22 13:28 12/17/22 14:13 Temperature 98.2 F Pulse Rate 69 67 61 Respiratory Rate 17 15 18 Blood Pressure 143/96 H 150/83 H Pulse Oximetry 95 97 100 Oxygen Delivery 12/17/22 16:35 12/17/22 22:00 12/18/22 05:32 Temperature 97.8 F 98.9 F Pulse Rate 89 72 Respiratory Rate 12 14 Blood Pressure 133/76 111/61 Pulse Oximetry 97 96 Oxygen Delivery Room Air 12/18/22 11:09 Temperature Pulse Rate 103 H Respiratory Rate Blood Pressure Pulse Oximetry Oxygen Delivery Intake/Output Intake/Output: Intake & Output 12/15/22 12/16/22 12/17/22 12/18/22 23:59 23:59 23:59 23:59 Intake Total 100 1100 Output Total 100 Balance 0 1100 Meds/Results Medications: Active Medications Generic Name Dose Route Start Last Admin Trade Name Freq PRN Reason Stop Dose Admin Acetaminophen 1,000 mg 12/17/22 15:11 Acetaminophen 500 Mg Tablet PO Q6H PRN Mild Pain (1-3) or Fever Clopidogrel Bisulfate 75 mg 12/18/22 09:00 12/18/22 11:12 Clopidogrel Bisulfate 75 Mg Tablet PO Not Given QAM CORINNE Piperacillin/Tazobactam/Dextrose 3.375 gm in 50 mls @ 100 mls/hr 12/17/22 18:00 12/18/22 11:13 Zosyn 3.375 Gm/Ns 50 Ml IVPB 100 mls/hr Q6H CORINNE Administration Sodium Chloride 1,000 mls @ 100 mls/hr 12/17/22 15:10 12/18/22 03:00 Normal Saline Iv IV CONT 100 mls/hr .Q10H CORINNE Administration Metoprolol Succinate 25 mg 12/18/22 09:00 12/18/22 11:09 Metoprolol Succinate Ext Rel 25 Mg Tabcr PO 25 mg QAM CORINNE Administration Morphine Sulfate 2 mg 12/17/22 12:22 12/17/22 13:05 Morphine Sulfate (*Crx) 4 Mg/Ml Inj IV PUSH 2 mg Q2H PRN Administration Pain Rated 7-10 Ondansetron HCl 4 mg 12/17/22 12:22 12/17/22 13:05 Ondansetron Inj 4 Mg/2 Ml Vial IV PUSH 4 mg Q4H PRN Administratio
--- NOTE | 2022-12-18 13:18 | WPDGIPROGNO ---
Progress Note: A&P Assessment and Plan (1) Acute calculous cholecystitis: Code(s): K80.00 - Calculus of gallbladder with acute cholecystitis without obstruction Status: Acute Assessment and Plan: HIDA scan suggest acute cholecystitis. Patient have have gallstones. Surgery following considering cholecystectomy at their discretion. MRCP reveals no bile duct obstruction. (2) Right sided abdominal pain: Code(s): R10.9 - Unspecified abdominal pain Status: Acute Assessment and Plan: Right upper quadrant pain persists more noticeable now with activity. Less than on presentation. Appears to be from cholecystitis. (3) History of colon cancer: Code(s): Z85.038 - Personal history of other malignant neoplasm of large intestine Status: Acute Assessment and Plan: Colon cancer resected in felt to be without active disease at present. Subjective Date/time seen: 12/18/22 13:18 Interval history: Patient alert. Comfortable if lying still. Reports pain if he is up around in the right upper quadrant. He states pain is less intense than on presentation yesterday. Denies a fever. Review of Systems Review of Systems: Review of systems noncontributory. Exam Narrative: Physical exam reveals patient to be alert. Vital signs stable. HEENT exam unremarkable. Patient anicteric. Lungs are clear. Heart without murmur. Abdomen soft mild right upper quadrant tenderness. Objective Data Vital Signs Vital Signs: Vital Signs - 24 hr 12/17/22 13:28 12/17/22 14:13 12/17/22 16:35 Temperature 98.2 F Pulse Rate 67 61 Respiratory Rate 15 18 Blood Pressure 143/96 H 150/83 H Pulse Oximetry 97 100 Oxygen Delivery Room Air 12/17/22 22:00 12/18/22 05:32 12/18/22 11:09 Temperature 97.8 F 98.9 F Pulse Rate 89 72 103 H Respiratory Rate 12 14 Blood Pressure 133/76 111/61 Pulse Oximetry 97 96 Oxygen Delivery Intake/Output Intake/Output: Intake & Output 12/15/22 12/16/22 12/17/22 12/18/22 23:59 23:59 23:59 23:59 Intake Total 100 1100 Output Total 100 Balance 0 1100 Meds/Results Medications: Active Medications Generic Name Dose Route Start Last Admin Trade Name Freq PRN Reason Stop Dose Admin Acetaminophen 1,000 mg 12/17/22 15:11 Acetaminophen 500 Mg Tablet PO Q6H PRN Mild Pain (1-3) or Fever Clopidogrel Bisulfate 75 mg 12/18/22 09:00 12/18/22 11:12 Clopidogrel Bisulfate 75 Mg Tablet PO Not Given QAM CORINNE Piperacillin/Tazobactam/Dextrose 3.375 gm in 50 mls @ 100 mls/hr 12/17/22 18:00 12/18/22 11:13 Zosyn 3.375 Gm/Ns 50 Ml IVPB 100 mls/hr Q6H CORINNE Administration Sodium Chloride 1,000 mls @ 100 mls/hr 12/17/22 15:10 12/18/22 03:00 Normal Saline Iv IV CONT 100 mls/hr .Q10H CORINNE Administration Metoprolol Succinate 25 mg 12/18/22 09:00 12/18/22 11:09 Metoprolol Succinate Ext Rel 25 Mg Tabcr PO 25 mg QAM CORINNE Administration Morphine Sulfate 2 mg 12/17/22 12:22 12/17/22 13:05 Morphine Sulfate (*Crx) 4 Mg/Ml Inj IV PUSH 2 mg Q2H PRN Administration Pain Rated 7-10 Ondansetron HCl 4 mg 12/17/22 12:22 12/17/22 13:05 Ondansetron Inj 4 Mg/2 Ml Vial IV PUSH 4 mg Q4H PRN Administration Nausea Ondansetron HCl 4 mg 12/17/22 19:15 Ondansetron Inj 4 Mg/2 Ml Vial IV PUSH Q6H PRN Nausea And Vomiting Rosuvastatin Calcium 20 mg 12/18/22 09:00 12/18/22 11:11 Rosuvastatin 10 Mg Tablet PO 20 mg QAM CORINNE Administration Radiology Results: ITS Impressions Upper Quadrant Ultrasound 12/17/22 10:26 IMPRESSION: 1. Cholelithiasis. No evidence of acute cholecystitis. 2. 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 Hepatobiliary Scan Nuclear Medicine 12/18/22 11:25 IMPRESSION: 1. No visible gallbladder activity including during the 30 minutes following morphine administration consistent with acute cholecystitis.
[2022-12-18 14:00] VITALS: BP 118/65; PULSE 65; RESP 20; TEMP 37.2; O2SAT 96
[2022-12-18] MEDS: ACETAMINOPHEN 500 MG TABLET 1000 MG PO (17:41)
[2022-12-18 22:00] VITALS: BP 99/58; PULSE 61; RESP 14; TEMP 36.3; O2SAT 97
[2022-12-19] MEDS: SODIUM CHLORIDE 0.9% IV 1,000 ML 100 ML IV CONT ×3 (01:11→18:46)
[2022-12-19] MEDS: PIPERACILLN/TAZ 3.375GM/NS50ML 3.375 GM/50 ML BAG IVPB ×5 (01:12→23:59)
[2022-12-19] MEDS: ACETAMINOPHEN 500 MG TABLET 1000 MG PO ×2 (05:18→16:47)
[2022-12-19 06:00] VITALS: BP 100/51; PULSE 62; RESP 14; TEMP 36.8; O2SAT 94
[2022-12-19 06:22] LABS: Hematocrit 36.3 % (42.0-52.0); Hemoglobin 12.3 g/dL (14.0-18.0); Mean Corpuscular HGB Conc 33.9 g/dl (32-36); Mean Corpuscular Hemoglobin 33.3 pg (26-34); Mean Corpuscular Volume 98.4 fl (80-100); Mean Platelet Volume 9.3 fl (7.4-10.4); Platelet Count Result 173 k/mm3 (150-375); Red Blood Count 3.69 M/mm3 (4.6-6.20); Red Cell Distribution Width 13.2 % (11.5-14.5); White Blood Count 14.9 K/mm3 (4.5-10.0)
[2022-12-19 06:38] LABS: Alanine Aminotransferase 67 U/L (6-50); Albumin Level 3.2 g/dL (3.5-5.1); Alkaline Phosphatase 76 U/L (38-126); Anion Gap 6 mmol/L (8-16); Aspartate Amino Transferase 48 U/L (17-59); Bilirubin,Total 2.6 mg/dL (0.2-1.3); Blood Urea Nitrogen 21 mg/dL (9-20); Calcium 7.8 mg/dL (8.4-10.2); Carbon Dioxide 23 mmol/L (22-30); Chloride 106 mmol/L (98-107); Estimated CRCL calculation 46 ml/min; Estimated Glomerular Filt Rate > 60; Glucose 94 mg/dL (65-110); Potassium 3.2 mmol/L (3.4-5.0); Sodium 135 mmol/L (137-145)
--- NOTE | 2022-12-19 08:37 | PM.IMPN ---
Progress Note: A&P Assessment and Plan (1) Cholelithiasis: Code(s): K80.20 - Calculus of gallbladder without cholecystitis without obstruction Status: Acute (2) Elevated LFTs: Code(s): R79.89 - Other specified abnormal findings of blood chemistry Status: Acute (3) Right sided abdominal pain: Code(s): R10.9 - Unspecified abdominal pain Status: Acute (4) Coronary artery disease: Code(s): I25.10 - Atherosclerotic heart disease of [place] coronary artery without angina pectoris Status: Acute Plan Gallstone and acute cholecystitis The patient presented to the emergency department for evaluation of right upper quadrant pain and nausea Right upper quadrant ultrasound showed cholelithiasis without evidence of cholecystitis Patient has a leukocytosis, and afebrile HIDA and MRCP suggests acute cholecystitis Patient is on Zosyn management per surgeon Elevated total bilirubin, liver enzymes, suspecting bile duct obstruction No biliary obstruction on MRCP Continue Zosyn IV We consult consult GI and general surgeon He had a 7 mm stone in the left kidney on recent CT but none noted on the right. UA ordered as he deficit has some tenderness on the right flank as well. No acute issues with chest pain. Blood pressure on the lower side Hold metoprolol Hypokalemia Repeated with potassium chloride 40 mEq IV once Follow-up BMP and magnesium Subjective Date/time seen: 12/19/22 08:37 Interval history: I saw exam patient, patient still has right upper quadrant pain, denies nausea vomiting diarrhea. Labs reviewed, white blood cell number is trending up, total bilirubin 2.6. Patient is afebrile, blood pressure on lower side Exam Narrative: General:?Well-developed, nontoxic-appearing male in the semi-Medina position in bed. Weight: 71 kg. BMI: 24.5. HEENT:??Normocephalic, atraumatic.? PERRL, EOMI. Sclera anicteric.? Oral mucosa moist. Slightly hard of hearing. Neck:??Supple. Respiratory:?Lungs are clear to auscultation bilaterally. Cardiovascular:??Regular rate and rhythm with S1-S2.? Gastrointestinal:?? tender to palpation over the right side of the abdomen, more so in the right lateral mid abdomen. Negative Ortega sign.? No guarding or rebound tenderness. Well-healed low midline abdominal scar. Skin:??Warm and dry.? No rash or lesions on limited exam. Extremities:??No cyanosis, clubbing, or edema. Radial and pedal pulses intact. Neurological:??Alert.? Cranial nerves 2-12 are grossly intact. No gross focal deficits to casual conversation. Psychiatric:??Pleasant and cooperative with normal mood and affect.? Judgment and insight intact. Objective Data Vital Signs Vital Signs: Vital Signs - 24 hr 12/18/22 11:09 12/18/22 14:00 12/18/22 22:00 Temperature 99.0 F 97.4 F L Pulse Rate 103 H 65 61 Respiratory Rate 20 14 Blood Pressure 118/65 99/58 L Pulse Oximetry 96 97 12/19/22 06:00 Temperature 98.3 F Pulse Rate 62 Respiratory Rate 14 Blood Pressure 100/51 L Pulse Oximetry 94 Intake/Output Intake/Output: Intake & Output 12/16/22 12/17/22 12/18/22 12/19/22 23:59 23:59 23:59 23:59 Intake Total 100 2200 100 Output Total 100 Balance 0 2200 100 Meds/Results Medications: Active Medications Generic Name Dose Route Start Last Admin Trade Name Freq PRN Reason Stop Dose Admin Acetaminophen 1,000 mg 12/17/22 15:11 12/19/22 05:18 Acetaminophen 500 Mg Tablet PO 1,000 mg Q6H PRN Administration Mild Pain (1-3) or Fever Clopidogrel Bisulfate 75 mg 12/18/22 09:00 12/18/22 11:12 Clopidogrel Bisulfate 75 Mg Tablet PO Not Given [facility] Piperacillin/Tazobactam/Dextrose 3.375 gm in 50 mls @ 100 mls/hr 12/17/22 18:00 12/19/22 05:46 Zosyn 3.375 Gm/Ns 50 Ml IVPB Infused Q6H [facility] Infusion Sodium Chloride 1,000 mls @ 100 mls/hr 12/17/22 15:10 12/19/22 01:12 Normal Saline Iv IV CONT Not Given .Q10H [facility] [place]
[2022-12-19] MEDS: POTASSIUM CHLORIDE INJ 40 MEQ in SODIUM CHLORIDE 0.9% IV 500 ML 130 MEQ IVPB (08:55)
[2022-12-19] MEDS: ROSUVASTATIN 10 MG TABLET 20 MG PO (08:55)
--- NOTE | 2022-12-19 11:23 | PM.PNGS ---
Progress Note: A&P Assessment and Plan (1) Acute calculous cholecystitis: Code(s): K80.00 - Calculus of gallbladder with acute cholecystitis without obstruction Status: Acute Assessment and Plan: The patient has acute cholecystitis seems to be getting worse without more elevations in his white blood cell count and liver enzymes. MRCP has ruled out obvious common bile duct stone. Will have Radiology place an image guided cholecystostomy tube to decompress the gallbladder. Should help with the pain and help resolve the cholecystitis and infection. Plan will be for an attempt to do a interval laparoscopic cholecystectomy in 4 to 6 weeks. Patient can have a low-fat diet later today after placement of the cholecystostomy tube. (2) Antiplatelet or antithrombotic long-term use: Code(s): Z79.02 - prison (current) use of antithrombotics/antiplatelets Status: Acute Assessment and Plan: Plavix continues to be held at this time. Subjective Subjective Date/Time Seen: 12/19/22 11:23 Interval history: Subjectively the patient's pain in the right upper quadrant is a little better today. He is still getting some pain medication. He remains N[place] [address] a day and total bilirubin is increased to 2.2. MRCP yesterday showed a gallstone in the neck of the gallbladder as well as the 2nd gallstone in the cystic duct no common bile duct stones were seen. Acute cholecystitis inflammatory changes around the gallbladder were seen on the MRCP. Exam Const: General: comfortable and no acute distress Eyes: General: appearance normal, both eyes and all related structures Sclera: sclerae normal Pupils: Equal, round and reactive pupils present EOM: EOMs intact bilaterally Neck: Neck: supple and no JVD Resp: Effort & Inspection: normal respiratory effort Auscultation: clear to auscultation bilaterally Cardio: Rate: regular rate Rhythm: regular rhythm GI: Other: Abdomen is soft and minimally distended. Has some mild tenderness to deep palpation right upper abdomen. The gallbladder is not palpable. No diffuse peritoneal signs are noted. Skin: General skin exam: normal color Wounds: no wounds Neuro: Speech: normal speech Motor exam (neuro): 5/5 motor strength present throughout Sensory Exam: normal sensation Psych: Mental Status: mental status grossly normal Affect: normal affect Objective Data Vital Signs Vital Signs: Vital Signs - 24 hr 12/18/22 14:00 12/18/22 22:00 12/19/22 06:00 Temperature 37.2 C 36.3 C L 36.8 C Pulse Rate 65 61 62 Respiratory Rate 20 14 14 Blood Pressure 118/65 99/58 L 100/51 L Pulse Oximetry 96 97 94 Intake/Output Intake/Output: Intake & Output 12/16/22 12/17/22 12/18/22 12/19/22 23:59 23:59 23:59 23:59 Intake Total 100 2200 1100 Output Total 100 Balance 0 2200 1100 Meds/Results Medications: Active Medications Generic Name Dose Route Start Last Admin Trade Name Freq PRN Reason Stop Dose Admin Acetaminophen 1,000 mg 12/17/22 15:11 12/19/22 05:18 Acetaminophen 500 Mg Tablet PO 1,000 mg Q6H PRN Administration Mild Pain (1-3) or Fever Clopidogrel Bisulfate 75 mg 12/18/22 09:00 12/18/22 11:12 Clopidogrel Bisulfate 75 Mg Tablet PO Not Given QAM [facility] Piperacillin/Tazobactam/Dextrose 3.375 gm in 50 mls @ 100 mls/hr 12/17/22 18:00 12/19/22 05:46 Zosyn 3.375 Gm/Ns 50 Ml IVPB Infused Q6H [facility] Infusion Sodium Chloride 1,000 mls @ 100 mls/hr 12/17/22 15:10 12/19/22 08:56 Normal Saline Iv IV CONT 100 mls/hr .Q10H [facility] Administration Potassium Chloride 40 meq/ 520 mls @ 130 mls/hr 12/19/22 08:00 12/19/22 08:55 Sodium Chloride IVPB 12/19/22 11:59 130 mls/hr ONCE ONE Administration Morphine Sulfate 2 mg 12/17/22 12:22 12/17/22 13:05 Morphine Sulfate (*Crx) 4 Mg/Ml Inj IV PUSH 2 mg Q2H PRN Administration Pain Rated 7-10 Ondansetron HCl 4 m
[2022-12-19 13:53] VITALS: BP 136/72; PULSE 64; RESP 20; TEMP 36.3; O2SAT 98
[2022-12-19 14:58] VITALS: TEMP 37.2
[2022-12-19 15:10] VITALS: BP 157/78; PULSE 105; RESP 22; TEMP 37.4; O2SAT 95
[2022-12-19 20:35] VITALS: BP 101/66; PULSE 60; RESP 16; TEMP 36.4; O2SAT 97
[2022-12-20] MEDS: ACETAMINOPHEN 500 MG TABLET 1000 MG PO ×2 (02:46→20:17)
[2022-12-20 04:56] VITALS: BP 129/71; PULSE 54; RESP 16; TEMP 36.4; O2SAT 94
[2022-12-20] MEDS: PIPERACILLN/TAZ 3.375GM/NS50ML 3.375 GM/50 ML BAG IVPB ×3 (05:50→16:45)
[2022-12-20] MEDS: SODIUM CHLORIDE 0.9% IV 1,000 ML 100 ML IV CONT (05:51)
[2022-12-20 06:36] LABS: Basophils Percent Auto 0.1 % (0.2-1.2); Eosinophils Percent Auto 0.2 % (0-4.4); Hematocrit 35.9 % (42.0-52.0); Hemoglobin 11.8 g/dL (14.0-18.0); Immature Granulocyte Absolute 0.07 K/mm3 (0.00-0.031); Immature Granulocyte Percent A 0.8 % (0-0.5); Lymphocytes Absolute Auto 1.24 K/mm3 (0.9-3.2); Lymphocytes Percent Auto 13.5 % (18.3-44.2); Mean Corpuscular HGB Conc 32.9 g/dl (32-36); Mean Corpuscular Hemoglobin 32.9 pg (26-34); Mean Platelet Volume 9.5 fl (7.4-10.4); Monocytes Absolute Auto 0.4 K/mm3 (0.1-0.6); Monocytes Percent Auto 4.4 % (2.6-8.5); Neutrophils Absolute Auto 7.5 K/mm3 (1.3-6.7); Platelet Count Result 162 k/mm3 (150-375); Red Blood Count 3.59 M/mm3 (4.6-6.20); Red Cell Distribution Width 13.3 % (11.5-14.5); White Blood Count 9.2 K/mm3 (4.5-10.0)
[2022-12-20 06:49] LABS: Alanine Aminotransferase 76 U/L (6-50); Albumin Level 3.2 g/dL (3.5-5.1); Alkaline Phosphatase 107 U/L (38-126); Anion Gap 6 mmol/L (8-16); Aspartate Amino Transferase 89 U/L (17-59); Bilirubin,Total 1.8 mg/dL (0.2-1.3); Blood Urea Nitrogen 17 mg/dL (9-20); Calcium 7.8 mg/dL (8.4-10.2); Carbon Dioxide 22 mmol/L (22-30); Chloride 110 mmol/L (98-107); Estimated CRCL calculation 51 ml/min; Estimated Glomerular Filt Rate > 60; Glucose 90 mg/dL (65-110); Potassium 3.4 mmol/L (3.4-5.0); Sodium 138 mmol/L (137-145)
[2022-12-20] MEDS: ROSUVASTATIN 10 MG TABLET 20 MG PO (08:18)
--- NOTE | 2022-12-20 09:47 | PM.PNGS ---
Progress Note: A&P Assessment and Plan (1) Acute calculous cholecystitis: Code(s): K80.00 - Calculus of gallbladder with acute cholecystitis without obstruction Status: Acute Assessment and Plan: Patient is much improved today after decompression of the gallbladder yesterday with a cholecystostomy tube. White blood cell count has decreased showed normal and liver enzymes are decreasing. Clinically his abdominal exam is improved as well. He has tolerated a low-fat diet. Will continue IV antibiotics today. And losses liver enzymes continued to decrease tomorrow the make consider discharge home in next 24 to 48 hours on oral antibiotics for another 10 days. Plan will be for a interval laparoscopic cholecystectomy in 4 to 6 weeks. Patient will need to be discharged home with the cholecystostomy tube in place. Patient potassium was low below today and so I gave him 40 mEq of potassium by mouth. Will also add some potassium to his maintenance IV fluids. Okay to restart his Plavix. Subjective Subjective Date/Time Seen: 12/20/22 09:47 Interval history: Patient feels much better today. Much less right upper quadrant abdominal pain. Had placement of a image guided cholecystostomy tube in Radiology yesterday. Bile from the gallbladder it was sent for culture results are pending. Patient has been afebrile [place] [address] to 9200. Total bilirubin has decreased as well after decompression of the gallbladder. He was able to eat a low-fat diet today without any difficulty. Exam Const: General: comfortable and no acute distress Eyes: General: appearance normal, both eyes and all related structures Sclera: sclerae normal Neck: Neck: supple Resp: Effort & Inspection: normal respiratory effort Auscultation: clear to auscultation bilaterally Cardio: Rate: regular rate Rhythm: regular rhythm GI: Other: Abdomen is soft and nondistended. Minimal right upper quadrant tenderness today. Cholecystostomy tube drain site is dry and dressed. Output from the drain is blood tinged bilious. Neuro: Speech: normal speech Sensory Exam: normal sensation Extrem: General: normal to inspection Psych: Mental Status: mental status grossly normal Affect: normal affect Objective Data Vital Signs Vital Signs: Vital Signs - 24 hr 12/19/22 13:53 12/19/22 14:58 12/19/22 15:10 Temperature 36.3 C L 37.2 C 37.4 C Pulse Rate 64 105 H Respiratory Rate 20 22 H Blood Pressure 136/72 157/78 H Pulse Oximetry 98 95 Oxygen Delivery 12/19/22 20:35 12/20/22 04:56 12/20/22 08:00 Temperature 36.4 C 36.4 C L Pulse Rate 60 54 L Respiratory Rate 16 16 Blood Pressure 101/66 129/71 Pulse Oximetry 97 94 Oxygen Delivery Room Air Intake/Output Intake/Output: Intake & Output 12/17/22 12/18/22 12/19/22 12/20/22 23:59 23:59 23:59 23:59 Intake Total 100 2200 3200 1100 Output Total 100 110 70 Balance 0 2200 3090 1030 Meds/Results Medications: Active Medications Generic Name Dose Route Start Last Admin Trade Name Freq PRN Reason Stop Dose Admin Acetaminophen 1,000 mg 12/17/22 15:11 12/20/22 02:46 Acetaminophen 500 Mg Tablet PO 1,000 mg Q6H PRN Administration Mild Pain (1-3) or Fever Clopidogrel Bisulfate 75 mg 12/18/22 09:00 12/18/22 11:12 Clopidogrel Bisulfate 75 Mg Tablet PO Not Given Q[facility] Piperacillin/Tazobactam/Dextrose 3.375 gm in 50 mls @ 100 mls/hr 12/17/22 18:00 12/20/22 06:20 Zosyn 3.375 Gm/Ns 50 Ml IVPB Infused Q6H [facility] Infusion Potassium Chloride/Dextrose/Sod Cl 1,000 mls @ 100 mls/hr 12/20/22 10:00 Kcl 20 Meq/D5/0.45% Sod Chl IV CONT .Q10H [facility] Morphine Sulfate 2 mg 12/17/22 12:22 12/17/22 13:05 Morphine Sulfate (*Crx) 4 Mg/Ml Inj IV PUSH 2 mg Q2H PRN Administration Pain Rated 7-10 Ondansetron HCl 4 mg 12/17/22 12:22 12/17/22 13:05 Ondansetron Inj 4 Mg/2 Ml Vial IV PUSH 4 mg
[2022-12-20] MEDS: POTASSIUM CHLORIDE 20 MEQ ER TABLET 40 MEQ PO (09:55)
[2022-12-20] MEDS: KCL 20 MEQ/D5/0.45% SOD CHL 1,000 ML 100 ML IV CONT ×2 (09:55→22:09)
--- NOTE | 2022-12-20 10:51 | PM.IMPN ---
Progress Note: A&P Assessment and Plan (1) Cholelithiasis: Code(s): K80.20 - Calculus of gallbladder without cholecystitis without obstruction Status: Acute (2) Elevated LFTs: Code(s): R79.89 - Other specified abnormal findings of blood chemistry Status: Acute (3) Right sided abdominal pain: Code(s): R10.9 - Unspecified abdominal pain Status: Acute (4) Coronary artery disease: Code(s): I25.10 - Atherosclerotic heart disease of [place] coronary artery without angina pectoris Status: Acute Plan Gallstone and acute cholecystitis The patient presented to the emergency department for evaluation of right upper quadrant pain and nausea Right upper quadrant ultrasound showed cholelithiasis without evidence of cholecystitis Patient has a leukocytosis, and afebrile HIDA and MRCP suggests acute cholecystitis Patient is on Zosyn s/p decompression of the gallbladder with a cholecystostomy tube 12/19. pain is better GS recommends georges continue IV antibiotics today.?and consider discharge home in next 24 to 48 hours on oral antibiotics for another 10 days.? Plan will be for a interval laparoscopic cholecystectomy in 4 to 6 weeks. Elevated total bilirubin, liver enzymes, suspecting bile duct obstruction No biliary obstruction on MRCP Continue Zosyn IV We consult consult GI and general surgeon Total proving is trending down Hypokalemia, hyponatremia Received normal saline and potassium chloride p.o. fall replacement Corrected He had a 7 mm stone in the left kidney on recent CT but none noted on the right. UA ordered as he deficit has some tenderness on the right flank as well. No acute issues with chest pain. Blood pressure on the lower side Hold metoprolol Hypokalemia Repeated with potassium chloride 40 mEq IV once Follow-up BMP and magnesium Subjective Date/time seen: 12/20/22 10:51 Interval history: I saw exam patient today, patient is feeling better, abdomen pain is better controlled. Patient underwent gallbladder decompression surgery yesterday. Patient is afebrile, blood pressure stable, total room is trending down, leukocytosis resolves Exam Narrative: General:?Well-developed, nontoxic-appearing male in the semi-[place] position in bed. Weight: 71 kg. BMI: 24.5. HEENT:??Normocephalic, atraumatic.? PERRL, EOMI. Sclera anicteric.? Oral mucosa moist. Slightly hard of hearing. Neck:??Supple. Respiratory:?Lungs are clear to auscultation bilaterally. Cardiovascular:??Regular rate and rhythm with S1-S2.? Gastrointestinal:?? tender to palpation over the right side of the abdomen, more so in the right lateral mid abdomen. Closely bloody fluid drained out from the catheter focal bladder to decompress.? No guarding or rebound tenderness. Well-healed low midline abdominal scar. Skin:??Warm and dry.? No rash or lesions on limited exam. Extremities:??No cyanosis, clubbing, or edema. Radial and pedal pulses intact. Neurological:??Alert.? Cranial nerves 2-12 are grossly intact. No gross focal deficits to casual conversation. Psychiatric:??Pleasant and cooperative with normal mood and affect.? Judgment and insight intact. Objective Data Vital Signs Vital Signs: Vital Signs - 24 hr 12/19/22 13:53 12/19/22 14:58 12/19/22 15:10 Temperature 97.4 F L 98.9 F 99.3 F Pulse Rate 64 105 H Respiratory Rate 20 22 H Blood Pressure 136/72 157/78 H Pulse Oximetry 98 95 Oxygen Delivery 12/19/22 20:35 12/20/22 04:56 12/20/22 08:00 Temperature 97.6 F 97.5 F L Pulse Rate 60 54 L Respiratory Rate 16 16 Blood Pressure 101/66 129/71 Pulse Oximetry 97 94 Oxygen Delivery Room Air Intake/Output Intake/Output: Intake & Output 12/17/22 12/18/22 12/19/22 12/20/22 23:59 23:59 23:59 23:59 Intake Total 100 2200 3200 1100 Output Total 100 110 70 Balance 0 2200 3090 1030 Meds/Results Medications: Active Medications Generic Name Dose Route Start Last Admin
[2022-12-20 14:00] VITALS: BP 137/67; PULSE 61; RESP 14; TEMP 36.4; O2SAT 99
[2022-12-20 22:00] VITALS: BP 165/75; PULSE 65; RESP 14; TEMP 36.6; O2SAT 97
[2022-12-21] MEDS: PIPERACILLN/TAZ 3.375GM/NS50ML 3.375 GM/50 ML BAG IVPB ×2 (00:47→04:56)
[2022-12-21 06:00] VITALS: BP 159/76; PULSE 51; RESP 14; TEMP 36.2; O2SAT 99
[2022-12-21 06:31] LABS: Basophils Percent Auto 0.5 % (0.2-1.2); Eosinophils Absolute Auto 0.1 K/mm3 (0-0.3); Eosinophils Percent Auto 1.7 % (0-4.4); Hematocrit 33.9 % (42.0-52.0); Hemoglobin 11.4 g/dL (14.0-18.0); Immature Granulocyte Absolute 0.02 K/mm3 (0.00-0.031); Immature Granulocyte Percent A 0.3 % (0-0.5); Lymphocytes Absolute Auto 1.19 K/mm3 (0.9-3.2); Lymphocytes Percent Auto 19.7 % (18.3-44.2); Mean Corpuscular HGB Conc 33.6 g/dl (32-36); Mean Corpuscular Hemoglobin 32.8 pg (26-34); Mean Corpuscular Volume 97.4 fl (80-100); Mean Platelet Volume 9.6 fl (7.4-10.4); Monocytes Absolute Auto 0.4 K/mm3 (0.1-0.6); Monocytes Percent Auto 7.1 % (2.6-8.5); Neutrophils Absolute Auto 4.3 K/mm3 (1.3-6.7); Neutrophils Percent Auto 70.7 % (45.5-73.1); Platelet Count Result 153 k/mm3 (150-375); Red Blood Count 3.48 M/mm3 (4.6-6.20); Red Cell Distribution Width 12.9 % (11.5-14.5)
[2022-12-21 06:42] LABS: Alanine Aminotransferase 92 U/L (6-50); Albumin Level 3.1 g/dL (3.5-5.1); Alkaline Phosphatase 141 U/L (38-126); Anion Gap 6 mmol/L (8-16); Aspartate Amino Transferase 109 U/L (17-59); Bilirubin,Total 1.2 mg/dL (0.2-1.3); Blood Urea Nitrogen 11 mg/dL (9-20); Calcium 7.7 mg/dL (8.4-10.2); Carbon Dioxide 22 mmol/L (22-30); Chloride 109 mmol/L (98-107); Estimated CRCL calculation 57 ml/min; Estimated Glomerular Filt Rate > 60; Glucose 104 mg/dL (65-110); Potassium 3.5 mmol/L (3.4-5.0); Sodium 137 mmol/L (137-145)
[2022-12-21] MEDS: KCL 20 MEQ/D5/0.45% SOD CHL 1,000 ML 100 ML IV CONT (08:09)
[2022-12-21] MEDS: ROSUVASTATIN 10 MG TABLET 20 MG PO (08:13)
--- NOTE | 2022-12-21 09:39 | PM.IMPN ---
Progress Note: A&P Assessment and Plan (1) Cholelithiasis: Code(s): K80.20 - Calculus of gallbladder without cholecystitis without obstruction Status: Acute (2) Elevated LFTs: Code(s): R79.89 - Other specified abnormal findings of blood chemistry Status: Acute (3) Right sided abdominal pain: Code(s): R10.9 - Unspecified abdominal pain Status: Acute (4) Coronary artery disease: Code(s): I25.10 - Atherosclerotic heart disease of [place] coronary artery without angina pectoris Status: Acute Plan Gallstone and acute cholecystitis The patient presented to the emergency department for evaluation of right upper quadrant pain and nausea Right upper quadrant ultrasound showed cholelithiasis without evidence of cholecystitis Patient has a leukocytosis, and afebrile HIDA and MRCP suggests acute cholecystitis Patient is on Zosyn, has switched to Augmentin per general surgeon 12/21 s/p decompression of the gallbladder with a cholecystostomy tube 12/19. pain is better, culture grows Gram-negative bacilli GS recommends georges continue IV antibiotics today.?and consider discharge home in next 24 to 48 hours on oral antibiotics for another 10 days.? Plan will be for a interval laparoscopic cholecystectomy in 4 to 6 weeks. Elevated total bilirubin, liver enzymes, suspecting bile duct obstruction No biliary obstruction on MRCP Continue Zosyn IV We consult consult GI and general surgeon Total proving is trending down Hypokalemia, hyponatremia Received normal saline and potassium chloride p.o. fall replacement Corrected He had a 7 mm stone in the left kidney on recent CT but none noted on the right. UA ordered as he deficit has some tenderness on the right flank as well. No acute issues with chest pain. Blood pressure on the lower side Hold metoprolol Hypokalemia Repeated with potassium chloride 40 mEq IV once Follow-up BMP and magnesium Subjective Date/time seen: 12/21/22 09:39 Interval history: I saw exam patient today, patient is feeling better, abdomen pain is better controlled. Patient tolerable, culture of drainage the fluid grew oxidase negative Gram-negative bacilli Exam Narrative: General:?Well-developed, nontoxic-appearing male in the semi-Medina position in bed. Weight: 71 kg. BMI: 24.5. HEENT:??Normocephalic, atraumatic.? PERRL, EOMI. Sclera anicteric.? Oral mucosa moist. Slightly hard of hearing. Neck:??Supple. Respiratory:?Lungs are clear to auscultation bilaterally. Cardiovascular:??Regular rate and rhythm with S1-S2.? Gastrointestinal:?? tender to palpation over the right side of the abdomen, more so in the right lateral mid abdomen. Closely bloody fluid drained out from the catheter focal bladder to decompress.? No guarding or rebound tenderness. Well-healed low midline abdominal scar. Skin:??Warm and dry.? No rash or lesions on limited exam. Extremities:??No cyanosis, clubbing, or edema. Radial and pedal pulses intact. Neurological:??Alert.? Cranial nerves 2-12 are grossly intact. No gross focal deficits to casual conversation. Psychiatric:??Pleasant and cooperative with normal mood and affect.? Judgment and insight intact. Objective Data Vital Signs Vital Signs: Vital Signs - 24 hr 12/20/22 14:00 12/20/22 20:00 12/20/22 22:00 Temperature 97.5 F L 97.8 F Pulse Rate 61 65 Respiratory Rate 14 14 Blood Pressure 137/67 165/75 H Pulse Oximetry 99 97 Oxygen Delivery Room Air 12/21/22 06:00 12/21/22 08:08 Temperature 97.2 F L Pulse Rate 51 L Respiratory Rate 14 Blood Pressure 159/76 H Pulse Oximetry 99 Oxygen Delivery Room Air Intake/Output Intake/Output: Intake & Output 12/18/22 12/19/22 12/20/22 12/21/22 23:59 23:59 23:59 23:59 Intake Total 2200 3200 3120 1550 Output Total 110 130 90 Balance 2200 3090 2990 1460 Meds/Results Medications: Active Medications Generic Name Dose Route Start Last Admin Trade Name Fr
[2022-12-21] MEDS: CLOPIDOGREL BISULFATE 75 MG TABLET PO (10:26)
--- NOTE | 2022-12-21 10:29 | PM.PNGS ---
Progress Note: A&P Assessment and Plan (1) Acute calculous cholecystitis: Code(s): K80.00 - Calculus of gallbladder with acute cholecystitis without obstruction Status: Acute Assessment and Plan: Patient seems to be resolving is acute cholecystitis secondary to cholelithiasis with decompression with the cholecystostomy tube. Tolerating a low-fat diet now. White blood cell count is normalized and liver enzymes are normalized or returning to normal. Clinically he is doing very well and can switch over to oral antibiotics for another 10 days. Discharge from the hospital okay today or tomorrow. Continue oral antibiotics home for another 10 days and will see follow him up in the office in 1 to 2 weeks. Patient will go home with the cholecystostomy tube in place. Subjective Subjective Date/Time Seen: 12/21/22 10:29 Interval history: Patient continues do very well. Very stable without any new complaints. Still minimal right upper quadrant pain but much improved. He has been tolerating low-fat diet since yesterday without difficulty. No fever. Drainage from the cystostomy tube is decreased and is much less bloody. Liver enzymes have normalized and white blood cell count is normalized as well. Exam GI: Other: Abdomen is soft and nondistended. Right upper quadrant cholecystostomy tube site dressed in clean. No redness or drainage around the drain site. Output from the drain is blood tinged bilious. Appears nonpurulent. Objective Data Vital Signs Vital Signs: Vital Signs - 24 hr 12/20/22 14:00 12/20/22 20:00 12/20/22 22:00 Temperature 36.4 C L 36.6 C Pulse Rate 61 65 Respiratory Rate 14 14 Blood Pressure 137/67 165/75 H Pulse Oximetry 99 97 Oxygen Delivery Room Air 12/21/22 06:00 12/21/22 08:08 Temperature 36.2 C L Pulse Rate 51 L Respiratory Rate 14 Blood Pressure 159/76 H Pulse Oximetry 99 Oxygen Delivery Room Air Intake/Output Intake/Output: Intake & Output 12/18/22 12/19/22 12/20/22 12/21/22 23:59 23:59 23:59 23:59 Intake Total 2200 3200 3120 1550 Output Total 110 130 90 Balance 2200 3090 2990 1460 Meds/Results Medications: Active Medications Generic Name Dose Route Start Last Admin Trade Name Freq PRN Reason Stop Dose Admin Acetaminophen 1,000 mg 12/17/22 15:11 12/20/22 20:17 Acetaminophen 500 Mg Tablet PO 1,000 mg Q6H PRN Administration Mild Pain (1-3) or Fever Clopidogrel Bisulfate 75 mg 12/18/22 09:00 12/18/22 11:12 Clopidogrel Bisulfate 75 Mg Tablet PO Not Given QAM [facility] Piperacillin/Tazobactam/Dextrose 3.375 gm in 50 mls @ 100 mls/hr 12/17/22 18:00 12/21/22 05:26 Zosyn 3.375 Gm/Ns 50 Ml IVPB Infused Q6H [facility] Infusion Potassium Chloride/Dextrose/Sod Cl 1,000 mls @ 100 mls/hr 12/20/22 10:00 12/21/22 08:09 Kcl 20 Meq/D5/0.45% Sod Chl IV CONT 100 mls/hr .Q10H [facility] Administration Morphine Sulfate 2 mg 12/17/22 12:22 12/17/22 13:05 Morphine Sulfate (*Crx) 4 Mg/Ml Inj IV PUSH 2 mg Q2H PRN Administration Pain Rated 7-10 Ondansetron HCl 4 mg 12/17/22 12:22 12/17/22 13:05 Ondansetron Inj 4 Mg/2 Ml Vial IV PUSH 4 mg Q4H PRN Administration Nausea Ondansetron HCl 4 mg 12/17/22 19:15 Ondansetron Inj 4 Mg/2 Ml Vial IV PUSH Q6H PRN Nausea And Vomiting Rosuvastatin Calcium 20 mg 12/18/22 09:00 12/21/22 08:13 Rosuvastatin 10 Mg Tablet PO 20 mg QAM [facility] Administration Radiology Results: ITS Impressions Upper Quadrant Ultrasound 12/17/22 10:26 IMPRESSION: 1. Cholelithiasis. No evidence of acute cholecystitis. 2. 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 Hepatobiliary Scan Nuclear [facility] 12/18/22 11:25 IMPRESSION: 1. No visible gallbladder activity including during the 30 minutes following morphine administration consistent with acute cholecystitis. MRCP 12/18/22 12:26 IMPRESSION: 1. Cholelithiasis and acute cholecyst
[2022-12-21 10:31] VITALS: O2SAT 98
[2022-12-21] MEDS: AMOXICILLIN/CLAVULANATE K 875-125 MG TAB 1 TABLET PO ×2 (11:08→20:39)
--- NOTE | 2022-12-21 12:47 | PC.NURSE ---
Pt is A&O4 male who has participated and contributed in plan of care. Pt was hopeful to discharge today. Pt had critical lab results come back that were reported to provider. Pt will continue to be here until susceptibility comes back. Pt has Perc drain in place. Pt denies any pain at this time. IV antibiotics changed to PO antibiotics. Pt will continue to be monitored for any changes in status.
[2022-12-21] MEDS: metroNIDAZOLE 250 MG TABLET 500 MG PO ×2 (13:17→21:45)
[2022-12-21 14:00] VITALS: BP 145/77; PULSE 71; RESP 16; TEMP 36.6; O2SAT 98
[2022-12-21 20:15] VITALS: BP 136/89; PULSE 73; RESP 16; TEMP 36.7; O2SAT 93
[2022-12-22 04:25] VITALS: BP 126/91; PULSE 62; RESP 16; TEMP 36.4; O2SAT 99
[2022-12-22] MEDS: metroNIDAZOLE 250 MG TABLET 500 MG PO (05:30)
--- NOTE | 2022-12-22 08:38 | PM.IMPN ---
Progress Note: A&P Assessment and Plan (1) Cholelithiasis: Code(s): K80.20 - Calculus of gallbladder without cholecystitis without obstruction Status: Acute (2) Elevated LFTs: Code(s): R79.89 - Other specified abnormal findings of blood chemistry Status: Acute (3) Right sided abdominal pain: Code(s): R10.9 - Unspecified abdominal pain Status: Acute (4) Coronary artery disease: Code(s): I25.10 - Atherosclerotic heart disease of [place] coronary artery without angina pectoris Status: Acute Plan Gallstone and acute cholecystitis The patient presented to the emergency department for evaluation of right upper quadrant pain and nausea Right upper quadrant ultrasound showed cholelithiasis without evidence of cholecystitis Patient has a leukocytosis, and afebrile HIDA and MRCP suggests acute cholecystitis Patient is on Zosyn, has switched to Augmentin per general surgeon 12/21 s/p decompression of the gallbladder with a cholecystostomy tube 12/19. pain is better, culture grows E coli, susceptible to Augmentin, continue Augmentin of totally 10 days per general surgeon recommendation. GS plans l laparoscopic cholecystectomy in 4 to 6 weeks. Elevated total bilirubin, liver enzymes, suspecting bile duct obstruction No biliary obstruction on MRCP Received Zosyn, now is on Augmentin We consult consult GI and general surgeon Total bili normal now Hypokalemia, hyponatremia Received normal saline and potassium chloride p.o. fall replacement Corrected He had a 7 mm stone in the left kidney on recent CT but none noted on the right. UA ordered as he deficit has some tenderness on the right flank as well. No acute issues with chest pain. Blood pressure on the lower side Hold metoprolol Hypokalemia Repeated with potassium chloride 40 mEq IV once Follow-up BMP corrected Subjective Date/time seen: 12/22/22 08:38 Interval history: I saw exam patient today, patient is feeling better, abdomen pain is better controlled. Patient tolerable, culture of drainage the fluid grows E coli, susceptible to Augmentin Exam Narrative: General:?Well-developed, nontoxic-appearing male in the semi-Medina position in bed. Weight: 71 kg. BMI: 24.5. HEENT:??Normocephalic, atraumatic.? PERRL, EOMI. Sclera anicteric.? Oral mucosa moist. Slightly hard of hearing. Neck:??Supple. Respiratory:?Lungs are clear to auscultation bilaterally. Cardiovascular:??Regular rate and rhythm with S1-S2.? Gastrointestinal:?? tender to palpation over the right side of the abdomen, more so in the right lateral mid abdomen. Closely bloody fluid drained out from the catheter focal bladder to decompress.? No guarding or rebound tenderness. Well-healed low midline abdominal scar. Skin:??Warm and dry.? No rash or lesions on limited exam. Extremities:??No cyanosis, clubbing, or edema. Radial and pedal pulses intact. Neurological:??Alert.? Cranial nerves 2-12 are grossly intact. No gross focal deficits to casual conversation. Psychiatric:??Pleasant and cooperative with normal mood and affect.? Judgment and insight intact. Objective Data Vital Signs Vital Signs: Vital Signs - 24 hr 12/21/22 10:31 12/21/22 14:00 12/21/22 20:15 Temperature 97.8 F 98.1 F Pulse Rate 71 73 Respiratory Rate 16 16 Blood Pressure 145/77 H 136/89 Pulse Oximetry 98 98 93 Oxygen Delivery Room Air 12/21/22 20:00 12/22/22 04:25 Temperature 97.5 F L Pulse Rate 62 Respiratory Rate 16 Blood Pressure 126/91 H Pulse Oximetry 99 Oxygen Delivery Room Air Intake/Output Intake/Output: Intake & Output 12/19/22 12/20/22 12/21/22 12/22/22 23:59 23:59 23:59 23:59 Intake Total 3200 3120 2430 1100 Output Total 110 130 180 Balance 3090 2990 2250 1100 Meds/Results Medications: Active Medications Generic Name Dose Route Start Last Admin Trade Name Freq PRN Reason Stop Dose Admin Acetaminophen 1,000 mg 12/17/22 15
[2022-12-22] MEDS: CLOPIDOGREL BISULFATE 75 MG TABLET PO (09:06)
[2022-12-22] MEDS: ROSUVASTATIN 10 MG TABLET 20 MG PO (09:06)
[2022-12-22] MEDS: AMOXICILLIN/CLAVULANATE K 875-125 MG TAB 1 TABLET PO (09:06)
[2022-12-22 14:00] VITALS: BP 116/72; PULSE 73; RESP 14; TEMP 36.5; O2SAT 98
--- NOTE | 2022-12-22 14:43 | PM.DS ---
DS: Admitting Diagnosis Discharge Date 12/22/22 Admitting Diagnosis (1) Cholelithiasis: ?Code(s): K80.20 - Calculus of gallbladder without cholecystitis without obstruction ?Status:?Acute (2) Elevated LFTs: ?Code(s): R79.89 - Other specified abnormal findings of blood chemistry ?Status:?Acute (3) Right sided abdominal pain: ?Code(s): R10.9 - Unspecified abdominal pain ?Status:?Acute (4) Coronary artery disease: ?Code(s): I25.10 - Atherosclerotic heart disease of [place] coronary artery without angina pectoris ?Status:?Acute DS: Discharge Diagnosis Discharge Diagnosis (1) Cholelithiasis: Code(s): K80.20 - Calculus of gallbladder without cholecystitis without obstruction Status: Acute (2) Elevated LFTs: Code(s): R79.89 - Other specified abnormal findings of blood chemistry Status: Acute (3) Right sided abdominal pain: Code(s): R10.9 - Unspecified abdominal pain Status: Acute (4) Coronary artery disease: Code(s): I25.10 - Atherosclerotic heart disease of [place] coronary artery without angina pectoris Status: Acute DS: Summary Hospital Course Hospital Course: Per H&P, this is a very pleasant 82-year-old male with colon cancer status post right hemicolectomy and oral chemotherapy and coronary artery disease? who presented to the emergency department via EMS from home for evaluation of abdominal pain. The patient provides the following history; his son provides additional information with the patient's permission and helps translate as the patient primary language is Macedonian. He had rice cakes and honey last night for dinner and several hours thereafter he developed sudden onset right upper quadrant abdominal pain radiating somewhat into the back and the right flank. Associated symptoms include nausea but no vomiting. His discomfort has persisted and he came into the ER for evaluation. He has never had similar symptoms. He has been told he has gallstones in the past. No history of cholecystitis, pancreatitis, or peptic ulcers. At the time my evaluation he is resting comfortably. He still has some mild discomfort but nothing significant. He denies fever, chills, sweats, chest pain, shortness a breath, pleuritic pain, vomiting, diarrhea, dysuria, and hematuria. The following medication issues have been addressed during hospitalization Gallstone and acute cholecystitis The patient presented to the emergency department for evaluation of right upper quadrant pain and nausea Right upper quadrant ultrasound showed cholelithiasis without evidence of cholecystitis Patient has a leukocytosis, and afebrile HIDA and MRCP suggests acute cholecystitis Patient is on Zosyn, has switched to Augmentin per general surgeon 12/21 s/p decompression of the gallbladder with a cholecystostomy tube 12/19. pain is better, culture grows E coli, susceptible to Augmentin, continue Augmentin of totally 10 days per general surgeon recommendation. GS plans l laparoscopic cholecystectomy in 4 to 6 weeks. Elevated total bilirubin, liver enzymes, suspecting bile duct obstruction No biliary obstruction on MRCP Received Zosyn, now is on Augmentin We consult consult GI and general surgeon Total bili normal now Hypokalemia, hyponatremia Received normal saline and potassium chloride p.o. fall replacement Corrected He had a 7 mm stone in the left kidney on recent CT but none noted on the right. UA ordered as he deficit has some tenderness on the right flank as well. No acute issues with chest pain. Blood pressure on the lower side Hold metoprolol Hypokalemia Repeated with potassium chloride 40 mEq IV once Follow-up BMP corrected Patient will be discharged home today, patient will see primary care doctor in 1 week, and see general surgeon at scheduled appointment. Hospital course uneventful. Time Spent with Patient Time attestation: Total time spent providing and
== END 2022-12-22 15:50 | disposition home or self-care (01) | DRG 445 ==
LOC: ANHED 09:26 → ANH3MEDSUR 13:28
PROVIDERS: Internal Medicine Gastroenterology; Nurse Practitioner Family; Physician Assistant; Surgery; Admitting Provider Hospitalist; Emergency Provider Emergency Medicine; PCP Family Medicine; Visit Provider Hospitalist
DX: K80.00 Calculus of gallbladder with acute cholecystitis without obstruction (principal); E87.1 Hypo-osmolality and hyponatremia; R79.89 Other specified abnormal findings of blood chemistry; I25.10 Atherosclerotic heart disease of native coronary artery without angina pectoris; D72.829 Elevated white blood cell count, unspecified; E87.6 Hypokalemia; N20.0 Calculus of kidney; I71.43 Infrarenal abdominal aortic aneurysm, without rupture; B96.20 Unspecified Escherichia coli [E. coli] as the cause of diseases classified elsewhere; Z85.038 Personal history of other malignant neoplasm of large intestine; Z87.891 Personal history of nicotine dependence; Z79.02 Long term (current) use of antithrombotics/antiplatelets
CPT/HCPCS: 36415; 47490; 74183; 76376; 76705; 78227; 80053; 80076; 81003; 83690; 83735; 85025; 85027; 85610; 85730; 87070; 87075; 87077; 87102; 87186; 87205; 87206; 93005; 96361; 96365; 96375; 96376; 99285; A9270; A9537; A9577; C1729; G0378; J2270; J2405; J2543; J2805; J3480; J7030; J7040

== ENCOUNTER 2023-01-16 09:26 | Outpatient (CLI) | payer MEDICARE, SELFPAY ==
--- NOTE | ~2023-01-16 | XR_ITS ---
EXAMINATION: XR catheter cholangiogram DATE: 01/16/2023 10:30 INDICATION: Cholelithiasis post percutaneous cholecystostomy tube placement for acute cholecystitis. TECHNIQUE: A time-out was performed to verify the patient's name, date of , and procedure to b e performed. 15 mL of Omnipaque 240 contrast was injected into the existing percutaneous cholecystost tracy tube with intermittent fluoroscopic observation. Approximately 7 mm of the injected contrast was aspirated from the gallbladder at the conclusion of the procedure. The catheter was then attached to gravity drainage. There were no immediate complications. Fluoroscopy exposure time was 0.2 minutes. T he total number of images was 9. FINDINGS: The loop of the percutaneous cholecystostomy tube is formed at the fundus of the gallbladder. There a re couple lucent mobile gallstones at the neck of the gallbladder. Contrast passes beyond the gallsto suzette into the cystic and common bile ducts and emptying into the duodenum. The common bile duct measur es up to 7 mm in maximal diameter which is within normal limits. There is reflux of contrast into the normal-appearing biliary tree. There is a small triangular filling defect with smooth mucosal margin s projecting medially from the lateral wall of the distalmost common bile duct with appearance favori ng a kink in the course of the distalmost common bile duct over malignancy. This may be related to ma ss effect from a 1.7 cm choledochal cyst which arises from the distalmost common bile duct. There is reflux of contrast into the more proximal normal-appearing biliary tree. IMPRESSION: 1. A couple nonobstructing mobile gallstones at the neck of the gallbladder with loop of a percutaneo us cholecystostomy tube formed in the fundus. 2. Filling defect with smooth mucosal margins arising from the lateral wall of the distal common bile duct which appears to result from a kink in the course of the distal duct potentially related to mas s effect from adjacent 1.7 cm choledochal cyst arising from the distalmost common bile duct. Reviewed, dictated and finalized at location A. IMPRESSION: 1. A couple nonobstructing mobile gallstones at the neck of the gallbladder wit h loop of a percutaneous cholecystostomy tube formed in the fundus. 2. Filling defect with smooth mucosal margins arising from the lateral wall of the distal common bile duct which appears to result from a kink in the course o f the distal duct potentially related to mass effect from adjacent 1.7 cm idalia dochal cyst arising from the distalmost common bile duct.
== END 2023-01-16 09:27 | disposition home or self-care (01) ==
PROVIDERS: PCP Family Medicine; Visit Provider Surgery
DX: K80.00 Calculus of gallbladder with acute cholecystitis without obstruction (principal); K83.5 Biliary cyst
CPT/HCPCS: 47531

== ENCOUNTER 2023-01-23 07:15 | Outpatient (CLI) | payer MEDICARE, SELFPAY ==
--- NOTE | ~2023-01-23 | CT_ITS ---
EXAMINATION: CT chest abdomen pelvis w con DATE: 01/23/2023 07:45 INDICATION: Malignant neoplasm of ascending colon. TECHNIQUE: Computed tomography (CT) of the chest, abdomen, and pelvis was performed with 100 mL Omnip aque 350 intravenous contrast. Automated exposure control and iterative reconstruction technique were employed. The dose-length product was 517.25 mGy-cm. COMPARISON: CT chest, abdomen, and pelvis 10/29/2022 FINDINGS: CHEST CT: The lungs demonstrate mild atelectasis. A calcified right lung nodule and calcified right hilar and m ediastinal lymph nodes are consistent with old granulomatous disease. The heart size is normal. There are coronary artery calcifications. No pericardial effusion. There is ectasia of ascending aorta ewa suring 4.4 cm. There is mild thoracic spondylosis. ABDOMEN/PELVIS CT: The liver and spleen are normal. The gallbladder is normal in size and contains gallstones. The pancr eas and adrenal glands are normal. There is a 12 mm cyst in right kidney. There is a 3 mm stone in ri ght kidney. There is a 7 mm stone in left kidney. There is an anastomosis in the sigmoid colon. There are changes of right hemicolectomy. There are no pathologically enlarged lymph nodes. There is calci fied atherosclerosis of the aorta and many of the other arteries. 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 There is no free intraperitoneal fluid. There is mild lumbar spondylosis. IMPRESSION: 1. No evidence of metastatic disease. Reviewed, dictated and finalized at location E.
== END 2023-01-23 07:16 | disposition home or self-care (01) ==
PROVIDERS: PCP Family Medicine; Visit Provider Internal Medicine Medical Oncology
DX: C18.2 Malignant neoplasm of ascending colon (principal)
CPT/HCPCS: 71260; 74177; Q9967

== ENCOUNTER 2023-02-06 07:58 | Outpatient (CLI) | payer MEDICARE, SELFPAY ==
[2023-02-06 09:37] LABS: Alanine Aminotransferase 59 U/L (6-50); Albumin Level 3.8 g/dL (3.5-5.1); Alkaline Phosphatase 111 U/L (38-126); Amylase 59 U/L (30-110); Aspartate Amino Transferase 53 U/L (17-59); Bilirubin,Total 0.7 mg/dL (0.2-1.3)
== END 2023-02-06 07:59 | disposition home or self-care (01) ==
LOC: ANHSURGERY 08:01
PROVIDERS: PCP Family Medicine; Visit Provider Surgery
DX: Z01.812 Encounter for preprocedural laboratory examination (principal); K80.10 Calculus of gallbladder with chronic cholecystitis without obstruction
CPT/HCPCS: 36415; 80076; 82150; 86850; 86900; 86901

== ENCOUNTER 2023-02-09 00:30 | Day surgery (SDC) | payer MEDICARE, SELFPAY ==
--- NOTE | 2023-02-06 07:44 | PC.NURSE ---
PRE-OP INSTRUCTIONS, PLEASE READ CAREFULLY Report to the Outpatient Waiting Room, entrance under the green pavilion located off [facility], at time _0900_ on date _02/09/23_. Planned Procedure Time: _1100_. PACK A SMALL OVERNIGHT BAG AND LEAVE IN THE CAR Time changes happen often and if your time is changed the preop area will call you the afternoon before. - You and your visitor will be asked to self-screen and do not enter if you have any COVID symptoms. - A mask is optional within the hospital at this time. -VISITING HOURS 8AM-8PM Patients may have clear liquids (water, carbonated beverages, clear teas, apple juice) until 3 hours prior to surgery (0800 AM) with a maximum of 20 ounces. - No food from midnight until time of surgery Take the following medications with a SIP of water the morning of surgery: _ISOSORBIDE, METOPROLOL - & NITROGLYCERIN IF NEED DO NOT STOP ANY OF YOUR OTHER PRESCRIPTION MEDICATIONS PRIOR TO SURGERY ?EXCEPT THE FOLLOWING Medications to discontinue per DR. CAMARENA - _CLOPIDOGREL - PT STATES LAST DOSE WAS 02/01/23_ Please no make-up, nail israeli, hairspray, perfume, deodorant, or body powder the day of surgery. No jewelry (including any body piercings) or valuables the day of surgery, leave them at home. Please take a shower or bath the night before, or the morning of, surgery with an antibacterial soap. Wear comfortable, loose fitting clothing. - Jewelry must be removed prior to entering the operating room. Rings and piercings that are not removed may be cut off. - The hospital will not accept responsibility for valuables. - Please leave all valuables, including medications, at home the day of surgery. If you are going home after surgery, a licensed log truck driver must drive you home. - NO public transportation without another adult if you receive anesthesia. - We recommend that an adult stay with you for 24 hours following discharge. - We also recommend that you do not drive, make important decision, drink alcoholic beverages, or take any drugs that were not prescribed by your health care provider for at least 24 hours after your discharge time. Follow any additional instructions given to you from your surgeon. HIBICLENS SHOWER AM OF SURGERY If you or anyone in your household have experienced Covid symptoms in the past week, please notify your surgeon or the nurse liaison at the phone number below for possible testing. Instructions given to _PATIENT & FAMILY_and asked if any additional questions and then verbalized understanding. Patient advised to call surgeon office or pre surgery nurse liaison [phone] if any additional questions.
[2023-02-06 08:20] VITALS: BP 150/70; PULSE 62; RESP 20; TEMP 36.6; O2SAT 100; BMI 24.6
[2023-02-09] VITALS (13 sets, daily range): BP systolic 131–173; BP diastolic 71–91; PULSE 56–66; RESP 12–16; TEMP 35.8–36.9; O2SAT 98–100
[2023-02-09] MEDS: ACETAMINOPHEN 500 MG TABLET 1000 MG PO (09:30)
[2023-02-09] MEDS: KETOROLAC 15 MG/ML VIAL (*BKC) IV PUSH (09:30)
[2023-02-09] MEDS: LACTATED RINGERS 1,000 ML 30 ML IV CONT ×2 (09:30→13:05)
--- NOTE | 2023-02-09 10:16 | PM.IMHP ---
H&P: HPI History of Present Illness Date/Time: 02/09/23 10:16 Chief Complaint: Chronic cholecystitis secondary to cholelithiasis Narrative: Sterling returns to the office after recent hospitalization at for gallbladder and was discharged on 12/22/22. He denies any pain from the area but has developed a cough and is having pain on his RUQ when coughing. He reports he has had dizziness and constipation as well since discharge. He is eating well now and had no issues after discharge. Cholecystostomy tube cholangiogram was performed showing a patent cystic duct and multiple residual gallstones. No common bile duct stones were seen. He is staying on a low-fat bland diet and tolerating that well. He was recently seen by Dr. Yanez in the cardiology clinic and received cardiac clearance to proceed with a general anesthetic with low risk. Review of Systems Review of Systems: The remainder of the review of systems to include constitutional, HEENT, cardiovascular, respiratory, GI, , integumentary, musculoskeletal, endocrine, immunologic, hematologic, psychiatric, and neurologic are all negative except for which is mentioned above in the HPI. 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 Leung. Coronary artery disease Diverticulitis Surgical History Surgical History History of Achilles tendon repair (11/29/14) Right. History of bilateral inguinal hernia repair (05/30/16) History of cardiac catheterization 07/2022 with findings of coronary artery disease with recommendation of medical therapy due to high risk for PCI, on dual anti-platelet therapy History of colon resection (04/23/22) Hand assisted laparoscopic right hemicolectomy with ileocolic anastomosis, small bowel resection with side to side anastomosis, and extensive adhesiolysis. History of colonoscopy with polypectomy History of lithotripsy (04/15/19) History of partial colectomy (04/09/09) Laparoscopic sigmoid colectomy for sigmoid adenocarcinoma. Family History Family History Other Family history non-contributory Social History Social History Social History: Surrogate medical decision maker: Theodore Bryant (son). Code status: Full code. Smoking packs per day: 0.5 Smoking cigarettes per day: 10.0 Years smoked: 20 Smoking pack-years: 10.00 Smoking status: Former smoker Tobacco type: cigarettes Second hand tobacco smoke exposure: No Additional smoking assessment comments: SON STATES PT STOPPED SMOKING ABOUT 45YRS AGO Alcohol intake: current Alcohol use details: RARELY - FEW TIMES A YEAR Substance use: never Substance use type: does not use Lack of Transportation: No Lack of Food: Never True Current Housing: I Have Housing Concerned About Future Housing: No Difficulty Paying Gas/Electric Bills: No Difficulty Paying for Meds: No Currently Unemployed: No Education: Don't Know Difficulty w/ Childcare or Family Care: No Living arrangements: with family Additional living arrangements comments: Lives with spouse in [place]. 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 Spiritual care concerns: No Meds Home Medications and Allergies Home Medications Medication Instructions Recorded Confirmed Type clopidogrel 75 mg tablet 75 mg PO DAILY 01/20/23 02/06/23 History rosuvastatin 20 mg tablet 20 mg PO DAILY 01/20/23
--- NOTE | 2023-02-09 10:21 | WPDHPUPDATE1 ---
History and Physical Update Update Date/Time: 02/09/23 10:21 History and Physical has been reviewed, including an updated exam of the patient. There are NO changes in the patient's condition. Risks, benefits, and alternatives have been discussed and questions answered. Patient agrees to proceed with procedure.
--- NOTE | 2023-02-09 10:22 | WPDANESEPPF ---
Anes - Initial Pre Proc Eval Procedure: Operation Date: 02/09/23 11:00 Proposed Procedures p Laparoscopic Cholecystectomy Possible Open - Juan Yusuf MD Date/Time: 02/09/23 10:22 Surgeon: Juan Yusuf MD Pre Op Diagnosis: chronic cholecystitis secondary to gallstones Patient Data Age: 82 Gender: M Height: 1.7 m Weight: 70.7 kg Last Vital Signs Temp 97.6 F 02/09/23 09:34 Pulse 64 02/09/23 09:34 Resp 14 02/09/23 09:34 BP 149/74 H 02/09/23 09:34 Pulse Ox 100 02/09/23 09:34 O2 Del Method Room Air 02/09/23 09:34 Allergies Allergy/AdvReac Type Severity Reaction Status Date / Time No Known Allergies Allergy Unknown Verified 02/09/23 09:50 Home Medications Medication Instructions Recorded Confirmed Type clopidogrel 75 mg tablet 75 mg PO DAILY 01/20/23 02/06/23 History rosuvastatin 20 mg tablet 20 mg PO DAILY 01/20/23 02/06/23 History isosorbide mononitrate 60 mg 60 mg PO DAILY 02/06/23 02/09/23 History tablet,extended release 24 hr metoprolol succinate 50 mg 50 mg PO 02/06/23 History tablet,extended release 24 hr nitroglycerin 0.4 mg sublingual 0.4 mg PRN CHEST PAIN 02/06/23 02/06/23 History tablet Patient hx anesthesia problems: none Family hx anesthesia problems: none Results Review: All pre-operative results and documents have been reviewed as part of the pre-operative evaluation. 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 Leung. Coronary artery disease Diverticulitis Surgical History Surgical History History of Achilles tendon repair (11/29/14) Right. History of bilateral inguinal hernia repair (05/30/16) History of cardiac catheterization 07/2022 with findings of coronary artery disease with recommendation of medical therapy due to high risk for PCI, on dual anti-platelet therapy History of colon resection (04/23/22) Hand assisted laparoscopic right hemicolectomy with ileocolic anastomosis, small bowel resection with side to side anastomosis, and extensive adhesiolysis. History of colonoscopy with polypectomy History of lithotripsy (04/15/19) History of partial colectomy (04/09/09) Laparoscopic sigmoid colectomy for sigmoid adenocarcinoma. Family History Family History Other Family history non-contributory Social History Social History Social History: Surrogate medical decision maker: Theodore Bryant (son). Code status: Full code. Smoking packs per day: 0.5 Smoking cigarettes per day: 10.0 Years smoked: 20 Smoking pack-years: 10.00 Smoking status: Former smoker Tobacco type: cigarettes Second hand tobacco smoke exposure: No Additional smoking assessment comments: SON STATES PT STOPPED SMOKING ABOUT 45YRS AGO Alcohol intake: current Alcohol use details: RARELY - FEW TIMES A YEAR Substance use: never Substance use type: does not use Lack of Transportation: No Lack of Food: Never True Current Housing: I Have Housing Concerned About Future Housing: No Difficulty Paying Gas/Electric Bills: No Difficulty Paying for Meds: No Currently Unemployed: No Education: Don't Know Difficulty w/ Childcare or Family Care: No Living arrangements: with family Additional living arrangements comments: Lives with spouse in [place]. 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 Spiritual care concerns: No Anes -
[2023-02-09] MEDS: ceFAZolin 2 GM/D5W 50 ML 2 GM/50 ML BAG IVPB (10:31)
[2023-02-09] MEDS: LIDO 1%/EPINEPHRINE 1:100,000 50 ML VIAL 20 ML INFILTRATE (11:06)
[2023-02-09] MEDS: BUPivacaine HCL 0.5% 10 ML AMP 30 ML INFILTRATE (11:08)
--- NOTE | 2023-02-09 13:50 | SUR.PHASEI ---
[employer] services used to evaluate patient and give education. reference number [id number]
--- NOTE | 2023-02-09 14:15 | PC.NURSE ---
This patient, Sterling Bryant, was admitted to [facility] Surg Room 328-01. Patient/family oriented to hospital policies and general routines including ID bracelet, bed and alarms, visiting hours, pain management, procedures, bathroom and other care routines, personal items, smoking policy, room service/diet, and visiting hours. Information on how to activate the Rapid Response Team has been discussed. Patient/Family are encouraged to report perceived risks to care and to ask questions if they do not understand what they are told or what they should do.
--- NOTE | 2023-02-09 16:00 | W.PM.PROC2 ---
Procedure Note - Detailed Date of Procedure 02/09/23 Pre-op Diagnosis chronic cholecystitis secondary to gallstones Post-op Diagnosis Same ( Extensive abdominal adhesions.) Procedure Performed Laparoscopic cholecystectomy with extensive laparoscopic adhesiolysis. Surgeon Juan Yusuf MD Wire Drawer ANNI Donnelly Anesthesia General Indications patient is a 82-year-old gentleman who about 6 weeks ago was admitted to the hospital with pre severe acute cholecystitis due to cholelithiasis and sepsis. He was initially managed with non operative therapy with placement of a image guided cholecystostomy tube in Radiology and decompression of gallbladder kept on IV antibiotics. He improved with the non operative management. As an outpatient he subsequently had a cholecystostomy tube cholangiogram performed showing a patent cystic duct with residual cholelithiasis. His cholecystostomy tube was removed and he has done fairly well low-fat bland diet since that time. He now presents for elective attempt at a laparoscopic cholecystectomy with possible conversion to an open cholecystectomy. Findings Upon entering the abdomen the patient had copious omental adhesions to the midline undersurface of the abdominal wall in the epigastric region. The patient previous hand assisted laparoscopic right hemicolectomy for colon cancer. These adhesions were in the area of the hand port site incision. He also had dense adhesions of the omentum which covered the gallbladder and also adhesions of the right lobe of the liver capsule to the abdominal wall. Gallbladder was markedly chronically thickened without any necrosis of the wall. In order to adequately visualize the right upper quadrant had to take down all the omental adhesions and then form adhesiolysis of the dense omentum off of the gallbladder and performed he has a lysis of the liver off of the anterior abdominal wall. The laparoscopic adhesiolysis lasted about 45minutes which doubled the time of the procedure compared to a standard laparoscopic cholecystectomy. Description of Procedure After informed consent was obtained patient brought to the operating room was placed supine position and general endotracheal anesthesia was administered. A Lima catheter was placed decompress the bladder and an orogastric tube was placed to decompress the stomach. The abdomen was then prepped and draped in usual sterile fashion. A time-out was then performed correctly identifying the patient as well as the procedure to be performed. He was given perioperative IV antibiotics. I 1st started to enter the abdomen left upper quadrant utilizing a 5mm Optiview port pure once inside the abdomen insufflated to adequate pneumoperitoneum of 15mm of mercury with CO2. Performing laparoscopic survey of the abdomen I could see copious adhesions of the omentum to the undersurface of the anterior abdominal wall in the epigastric region where the patient had a previous hand port incision made for hand assisted laparoscopic right hemicolectomy for colon cancer. He also had dense adhesions of the omentum draped across the gallbladder and this initially obscured being able to see the gallbladder. In addition the right lobe of the liver was densely adherent to the undersurface of the anterior abdominal wall due to prior inflammation. The gallbladder itself was chronically inflamed with gallstone within it. The gallbladder wall was viable without evidence of gangrene or necrosis. I then placed a 5mm left lateral abdominal wall trocar port and then utilizing laparoscopic dc proceeded to perform an extensive adhesiolysis laparoscopically of the omentum off of the undersurface of the anterior abdominal wall In the umbilical and epigastric portion of the abdomen. Once this was then I then placed a 5mm supraumbilical trocar port under direct visualization. I then performed adhesiolysis of the right lobe of the liver off of the undersurfa
[2023-02-09] MEDS: TAMSULOSIN HCL 0.4 MG CAPSULE PO (16:01)
[2023-02-10] VITALS: BP 121/71; PULSE 61; RESP 14; TEMP 36.6; O2SAT 98
[2023-02-10 04:00] VITALS: BP 128/67; PULSE 62; RESP 14; TEMP 36.8; O2SAT 96
[2023-02-10] MEDS: ACETAMINOPHEN 500 MG TABLET 1000 MG PO (05:28)
[2023-02-10 06:23] LABS: Hematocrit 27.2 % (42.0-52.0); Hemoglobin 8.6 g/dL (14.0-18.0); Mean Corpuscular HGB Conc 31.6 g/dl (32-36); Mean Corpuscular Hemoglobin 29.1 pg (26-34); Mean Corpuscular Volume 91.9 fl (80-100); Platelet Count Result 239 k/mm3 (150-375); Red Blood Count 2.96 M/mm3 (4.6-6.20); Red Cell Distribution Width 14.5 % (11.5-14.5); White Blood Count 7.3 K/mm3 (4.5-10.0)
[2023-02-10 06:39] LABS: Alanine Aminotransferase 61 U/L (6-50); Albumin Level 3.4 g/dL (3.5-5.1); Alkaline Phosphatase 95 U/L (38-126); Anion Gap 10 mmol/L (8-16); Aspartate Amino Transferase 70 U/L (17-59); Bilirubin,Total 1.5 mg/dL (0.2-1.3); Blood Urea Nitrogen 15 mg/dL (9-20); Calcium 8.5 mg/dL (8.4-10.2); Carbon Dioxide 23 mmol/L (22-30); Chloride 103 mmol/L (98-107); Estimated CRCL calculation 57 ml/min; Estimated Glomerular Filt Rate > 60; Glucose 107 mg/dL (65-110); Potassium 3.8 mmol/L (3.4-5.0); Sodium 136 mmol/L (137-145)
[2023-02-10 08:00] VITALS: BP 110/65; PULSE 66; RESP 18; TEMP 36.5; O2SAT 96
[2023-02-10] MEDS: CLOPIDOGREL BISULFATE 75 MG TABLET PO (09:17)
[2023-02-10] MEDS: TAMSULOSIN HCL 0.4 MG CAPSULE PO (09:17)
[2023-02-10] MEDS: ROSUVASTATIN 10 MG TABLET 20 MG PO (09:17)
[2023-02-10] MEDS: PANTOPRAZOLE 40 MG TABLET PO (09:17)
[2023-02-10] MEDS: ISOSORBIDE MONONITRATE 60 MG TAB.ER.24H PO (09:17)
--- NOTE | 2023-02-10 10:10 | WPDURCON ---
Assessment and Plan Assessment and plan (1) Urinary retention: Code(s): R33.9 - Retention of urine, unspecified Status: Acute Assessment and Plan: Restart tamsulosin 0.4 mg q.h.s.. Okay for discharge from urologic standpoint with Lima catheter. Patient to call for an appointment to have Lima removed next week. Urology Consult Note HPI Date Seen: 02/10/23 Time Seen: 07:30 Requesting Physician: Juan Yusuf MD Primary Care Provider: Kandy Rodriguez MD Consult Narrative Reason for consult: Urinary retention Narrative: Sterling Bryant is a 82 year old male who is status post laparoscopic cholecystectomy. Patient has had difficulty voiding in the past requiring prior catheters. He also had difficulty voiding after this surgery and a Lima catheter was placed. Patient had been on tamsulosin at 1 time but stopped it. His Lima is draining clear urine at this time. Prior to his admission he did have nocturia times 3-4 with decreased force of stream. 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 Leung. Coronary artery disease Diverticulitis Surgical History Surgical History History of Achilles tendon repair (11/29/14) Right. History of bilateral inguinal hernia repair (05/30/16) History of cardiac catheterization 07/2022 with findings of coronary artery disease with recommendation of medical therapy due to high risk for PCI, on dual anti-platelet therapy History of colon resection (04/23/22) Hand assisted laparoscopic right hemicolectomy with ileocolic anastomosis, small bowel resection with side to side anastomosis, and extensive adhesiolysis. History of colonoscopy with polypectomy History of lithotripsy (04/15/19) History of partial colectomy (04/09/09) Laparoscopic sigmoid colectomy for sigmoid adenocarcinoma. Family History Family History Other Family history non-contributory Social History Social History Social History: Surrogate medical decision maker: Theodore Bryant (son). Code status: Full code. Smoking packs per day: 0.5 Smoking cigarettes per day: 10.0 Years smoked: 20 Smoking pack-years: 10.00 Smoking status: Never smoker Tobacco type: cigarettes Second hand tobacco smoke exposure: No Additional smoking assessment comments: SON STATES PT STOPPED SMOKING ABOUT 45YRS AGO Alcohol intake: never Alcohol use details: RARELY - FEW TIMES A YEAR Substance use: never Substance use type: does not use Lack of Transportation: No Lack of Food: Never True Current Housing: I Have Housing Concerned About Future Housing: Decline to Answer Difficulty Paying Gas/Electric Bills: Decline to Answer Difficulty Paying for Meds: Decline to Answer Currently Unemployed: Decline to Answer Education: High School Diploma/GED Difficulty w/ Childcare or Family Care: Decline to Answer Living arrangements: with family Additional living arrangements comments: Lives with spouse in [place]. 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 Spiritual care concerns: No Meds Home Medications and Allergies Home Medications Medication Instructions Recorded Confirmed Type clopidogrel 75 mg tablet 75 mg PO DAILY 01/20/2302/06
--- NOTE | 2023-02-10 10:45 | PM.DS ---
DS: Admitting Diagnosis Discharge Date 02/10/23 Admitting Diagnosis Chronic calculous cholecystitis DS: Discharge Diagnosis Discharge Diagnosis (1) Chronic cholecystitis with calculus: Code(s): K80.10 - Calculus of gallbladder with chronic cholecystitis without obstruction Status: Acute Assessment and Plan: 02/09/23 - Laparoscopic cholecystectomy with extensive laparoscopic adhesiolysis by Dr. Yusuf (2) Urinary retention: Code(s): R33.9 - Retention of urine, unspecified Status: Acute Plan I have discussed the patient's case and plan of care with Dr. Yusuf. Okay to discharge today. DS: Summary Hospital Course Reason for hospitalization: The patient is an 82-year-old?man who was admitted to the hospital with severe acute cholecystitis due to cholelithiasis and sepsis about 6 weeks ago.? He was initially managed with non operative therapy with placement of a image-guided cholecystostomy tube in Radiology and decompression of gallbladder kept on IV antibiotics.? He improved with the non-operative management.? As an outpatient he subsequently had a cholecystostomy tube cholangiogram performed showing a patent cystic duct with residual cholelithiasis.? His cholecystostomy tube was removed and he did well with a low-fat bland diet since that time.? Decision was made to proceed with an elective attempt at a laparoscopic cholecystectomy by Dr. Yusuf. Hospital Course: He was taken to surgery yesterday for a laparoscopic cholecystectomy with extensive laparoscopic adhesiolysis. He was found to have extensive abdominal adhesions and had a 15 Sudanese Lan drain placed in the right upper quadrant. He was kept overnight for extended recovery. His diet has been advanced as tolerated. He is ambulating well without any issues and tolerating his activity. He had urinary retention last night, which has also occurred following previous surgery. Nursing staff attempted placed a 16 Sudanese Lima catheter without success. They then attempted using a Coude and met resistance when trying to inflate the balloon. They then were able to successfully place a 14 Sudanese indwelling urinary catheter. Urology was consulted and he was started on Flomax. Urology is okay with discharge and follow-up for catheter removal in 1 week. He will be discharged on Flomax. Patient is stable for discharge today. His NELIDA drain has bloody serous drainage in the drain and also leaking around the drain at the skin. The dressing was changed this morning. NELIDA will be removed prior to discharge per Dr. Yusuf. Follow-up in 2 weeks. Status at Discharge Functional status at discharge: independent ambulation Overall status at discharge: patient is progressing back to baseline Time Spent with Patient Time attestation: Total time spent providing and/or coordinating discharge services: Time spent: Less than 30 minutes Exam Const: General: comfortable, no acute distress and awake Orientation/consciousness: patient oriented x3 GI: Inspection: non-distended, incision (incisions dry and intact) and other (NELIDA drain with serous drainage and some drainage seeping around the drain) GI Palp: Yes Soft to palpation and Yes Tenderness to palpation present (GI) (incisional) Auscultation: normal bowel sounds Urinary Catheter: Urinary Catheter: patent and draining and urine clear Neuro: General: moves all extremities and no focal motor deficits Extrem: General: no calf tenderness and no edema Psych: Mental Status: mental status grossly normal Insight: Good insight present (Psych) DS: Data Data Completed and Pending Completed studies during hospitalization: Pending at discharge 02/09/23 12:13 Surgical [PTH] Routine Labs on day of discharge: Labs from last 24 hours 02/10/23 05:56 WBC 7.3 RBC 2.96 L Hgb 8.6 L Hct 27.2 L MCV 91.9 MCH 29.1 MCHC 31.6 L RDW 14.5 Plt Count 239 D MPV 9.0 Sodium 136 L Potassium 3.8 Chloride 103 Carbon Dioxide 23
--- NOTE | 2023-02-10 12:04 | PC.NURSE ---
discharge instructions gone over with son at bedside. denies any questions. supplies sent home. IV out. patient eating lunch, will then take out to private car by wheelchair. all personal belongings sent home with patient.
== END 2023-02-10 13:10 | disposition home or self-care (01) ==
LOC: ANHSURGERY 09:01 → ANH3MEDSUR 14:12
PROVIDERS: PCP Family Medicine; Visit Provider Surgery
PROC: 0FT44ZZ Resection of Gallbladder, Percutaneous Endoscopic Approach (ICD-10-PCS; CPT 47562; principal; 2023-02-09 11:00)
DX: K80.10 Calculus of gallbladder with chronic cholecystitis without obstruction (principal); R33.9 Retention of urine, unspecified; I25.10 Atherosclerotic heart disease of native coronary artery without angina pectoris; Z87.891 Personal history of nicotine dependence; Z85.038 Personal history of other malignant neoplasm of large intestine
CPT/HCPCS: 47562; 36415; 80053; 85027; 88304; A9270; C1713; J0690; J1100; J1885; J2405; J2704; J2710; J3010; J7120

== ENCOUNTER 2023-05-22 07:28 | Outpatient (CLI) | payer MEDICARE, SELFPAY ==
--- NOTE | ~2023-05-22 | CT_ITS ---
Clinical Indication: Colon cancer CT Scan of the Chest, Abdomen, and Pelvis with Contrast: Technique: Contiguous sections were acquired throughout the chest, abdomen, and pelvis after intraven ous administration of 100 cc of Omnipaque 350. Dose reduction technique was used on this scan by uti lizing automated exposure control and iterative reconstruction technique. The dose-length product (DL P) was 558.45 mGy-cm. COMPARISON: 01/23/2023 Findings: There is no evidence of any significant mediastinal, hilar or axillary lymphadenopathy. The mediastin al soft tissues appear normal. There is no evidence of pleural or pericardial effusion. The lungs are clear. No pulmonary nodules or infiltrates are noted. The liver, spleen, pancreas, adrenals and right kidney are within normal limits. Nonobstructing left renal stone is unchanged. Cholecystectomy clips are present. Distal abdominal aorta is mildly dilated to 3.2 cm.. No lymphadenopathy. No bowel obstruction or bowel wall thickening. Evidence of prior colonic surgery noted. Urinary bladder is unremarkable. No pelvic mass seen. No ascites. Impression: No evidence of active malignancy or metastatic disease. Evidence of prior colonic surgery. 3.2 cm distal abdominal aortic aneurysm. Nonobstructing left renal stone. Reviewed, dictated and finalized at [facility]. RT MANAGER Impression: No evidence of active malignancy or metastatic disease. Evidence of prior colonic surgery. 3.2 cm distal abdominal aortic aneurysm. Nonobstructing left renal stone.
[2023-05-22 07:53] LABS: Estimated Glomerular Filt Rate > 60
[2023-05-22 08:47] LABS: Basophils Absolute Auto 0.1 K/mm3 (0.0-0.1); Basophils Percent Auto 1.1 % (0.2-1.2); Eosinophils Absolute Auto 0.1 K/mm3 (0-0.3); Eosinophils Percent Auto 2.7 % (0-4.4); Hematocrit 36.2 % (42.0-52.0); Hemoglobin 11.3 g/dL (14.0-18.0); Immature Granulocyte Absolute 0.01 K/mm3 (0.00-0.031); Immature Granulocyte Percent A 0.2 % (0-0.5); Lymphocytes Percent Auto 43.8 % (18.3-44.2); Mean Corpuscular HGB Conc 31.2 g/dl (32-36); Mean Corpuscular Hemoglobin 27.8 pg (26-34); Mean Corpuscular Volume 88.9 fl (80-100); Mean Platelet Volume 9.2 fl (7.4-10.4); Monocytes Absolute Auto 0.4 K/mm3 (0.1-0.6); Monocytes Percent Auto 8.4 % (2.6-8.5); Neutrophils Absolute Auto 2.3 K/mm3 (1.3-6.7); Neutrophils Percent Auto 43.8 % (45.5-73.1); Platelet Count Result 177 k/mm3 (150-375); Red Blood Count 4.07 M/mm3 (4.6-6.20); Red Cell Distribution Width 21.3 % (11.5-14.5); White Blood Count 5.3 K/mm3 (4.5-10.0)
[2023-05-22 08:58] LABS: Alanine Aminotransferase 43 U/L (6-50); Albumin Level 3.8 g/dL (3.5-5.1); Alkaline Phosphatase 74 U/L (38-126); Anion Gap 6 mmol/L (8-16); Aspartate Amino Transferase 41 U/L (17-59); Bilirubin,Total 1.2 mg/dL (0.2-1.3); Blood Urea Nitrogen 16 mg/dL (9-20); Calcium 8.7 mg/dL (8.4-10.2); Carbon Dioxide 25 mmol/L (22-30); Chloride 107 mmol/L (98-107); Estimated Glomerular Filt Rate > 60; Glucose 87 mg/dL (65-110); Potassium 3.8 mmol/L (3.4-5.0); Sodium 138 mmol/L (137-145)
[2023-05-22 09:28] LABS: Carcinoembryonic Antigen 60.7 ng/mL (0.0-3.0)
== END 2023-05-22 07:29 | disposition home or self-care (01) ==
PROVIDERS: PCP Family Medicine; Visit Provider Internal Medicine Medical Oncology
DX: C18.2 Malignant neoplasm of ascending colon (principal); N20.0 Calculus of kidney; I71.40 Abdominal aortic aneurysm, without rupture, unspecified; Z90.49 Acquired absence of other specified parts of digestive tract
CPT/HCPCS: 71260; 74177; 80053; 82378; 85025; Q9967

== ENCOUNTER 2023-10-29 13:03 | Outpatient (CLI) | payer MEDICARE, SELFPAY | END 2023-10-29 13:04 | disposition home or self-care (01) | LOC: ANHSURGERY 13:06 | PROVIDERS: PCP Family Medicine; Visit Provider Urology | DX: Z01.818 Encounter for other preprocedural examination (principal); R33.9 Retention of urine, unspecified | CPT/HCPCS: 87086 ==

== ENCOUNTER 2023-11-02 10:08 | Outpatient (CLI) | payer MEDICARE, SELFPAY ==
[2023-11-02 10:31] LABS: Basophils Percent Auto 0.3 % (0.2-1.2); Eosinophils Absolute Auto 0.1 K/mm3 (0-0.3); Eosinophils Percent Auto 1.7 % (0-4.4); Hematocrit 32.4 % (42.0-52.0); Hemoglobin 11.2 g/dL (14.0-18.0); Immature Granulocyte Absolute 0.01 K/mm3 (0.00-0.031); Immature Granulocyte Percent A 0.3 % (0-0.5); Lymphocytes Absolute Auto 1.53 K/mm3 (0.9-3.2); Lymphocytes Percent Auto 52.9 % (18.3-44.2); Mean Corpuscular HGB Conc 34.6 g/dl (32-36); Mean Corpuscular Volume 98.5 fl (80-100); Mean Platelet Volume 8.8 fl (7.4-10.4); Monocytes Absolute Auto 0.3 K/mm3 (0.1-0.6); Monocytes Percent Auto 9.7 % (2.6-8.5); Neutrophils Percent Auto 35.1 % (45.5-73.1); Platelet Count Result 158 k/mm3 (150-375); Red Blood Count 3.29 M/mm3 (4.6-6.20); Red Cell Distribution Width 13.6 % (11.5-14.5); White Blood Count 2.9 K/mm3 (4.5-10.0)
== END 2023-11-02 10:09 | disposition home or self-care (01) ==
LOC: ANHLAB 10:11
PROVIDERS: PCP Family Medicine; Visit Provider Internal Medicine Medical Oncology
DX: C18.2 Malignant neoplasm of ascending colon (principal)
CPT/HCPCS: 36415; 85025

== ENCOUNTER 2023-11-03 01:37 | Day surgery (SDC) | payer MEDICARE, SELFPAY ==
[2023-10-29 09:29] VITALS: BMI 24.3
--- NOTE | 2023-10-29 11:16 | PC.NURSE ---
Report to the Outpatient Waiting Room, entrance under the green pavilion located off [facility], at time ___07:00_am__ on date ___11/03/23____. Planned Procedure Time: ___09:00am . Time changes happen often and if your time is changed the preop area will call you the afternoon before. - You and your visitor will be asked to self-screen and do not enter if you have any COVID symptoms. - A mask is optional within the hospital at this time. Patients may have clear liquids (water, carbonated beverages, clear teas, apple juice) until 3 hours prior to surgery ( 06:00am) with a maximum of 20 ounces. - No food from midnight until time of surgery Take the following medications with a SIP of water the morning of surgery: ____Metoprolol DO NOT STOP ANY OF YOUR OTHER PRESCRIPTION MEDICATIONS PRIOR TO SURGERY ?EXCEPT THE FOLLOWING Medications to discontinue per physician HOLD Plavix [address] Kuo Date to take last dose____10/26/23 Please no make-up, nail guatemalan, hairspray, perfume, deodorant, or body powder the day of surgery. No jewelry (including any body piercings) or valuables the day of surgery, leave them at home. Please take a shower or bath the night before, or the morning of, surgery with an antibacterial soap. Wear comfortable, loose fitting clothing. - Jewelry must be removed prior to entering the operating room. Rings and piercings that are not removed may be cut off. - The hospital will not accept responsibility for valuables. - Please leave all valuables, including medications, at home the day of surgery. If you are going home after surgery, a licensed skidder driver must drive you home. - NO public transportation without another adult if you receive anesthesia. - We recommend that an adult stay with you for 24 hours following discharge. - We also recommend that you do not drive, make important decision, drink alcoholic beverages, or take any drugs that were not prescribed by your health care provider for at least 24 hours after your discharge time. Follow any additional instructions given to you from your surgeon. If you or anyone in your household have experienced Covid symptoms in the past week, please notify your surgeon or the nurse liaison at the phone number below for possible testing. Telephone instructions given to __Son & Patient and asked if any additional questions and then verbalized understanding. Patient advised to call surgeon office or pre surgery nurse liaison [phone] if any additional questions.
[2023-11-03] VITALS (9 sets, daily range): BP systolic 106–151; BP diastolic 69–83; PULSE 45–55; RESP 12–20; TEMP 36.2–36.5; O2SAT 96–100
--- NOTE | ~2023-11-03 | XR_ITS ---
EXAMINATION: CYSTOGRAM DATE: 11/03/2023 08:58 INDICATION: urethral dilation with retrograde urethrogram TECHNIQUE: 2 fluoroscopic images of the pelvis were obtained during procedure performed by Dr. Corina cassidy. Radiologist was not present for the imaging or procedure. The amount of fluoroscopy time used dur ing this procedure was 0.3 minutes. COMPARISON: None. FINDINGS: Initial image demonstrates retrograde contrast injection into the urethra and bladder. Stenosis along the prostatic urethra. Subsequent image demonstrates a Lima catheter of larger diameter than the st enosis extending to the contrast opacified bladder. No evident extraluminal contrast extravasation. IMPRESSION: 1. Likely catheter within the bladder spanning the stenosed prostatic urethra presumably post dilatio n. See procedure note for further detail. Reviewed, dictated and finalized at location A. IMPRESSION: 1. Likely catheter within the bladder spanning the stenosed prostatic urethra p resumably post dilation. See procedure note for further detail.
[2023-11-03] MEDS: LACTATED RINGERS 1,000 ML 30 ML IV CONT (07:00)
--- NOTE | 2023-11-03 07:32 | WPDHPUPDATE1 ---
History and Physical Update Update Date/Time: 11/03/23 07:32 History and Physical has been reviewed, including an updated exam of the patient. There are NO changes in the patient's condition. Risks, benefits, and alternatives have been discussed and questions answered. Patient agrees to proceed with procedure.
--- NOTE | 2023-11-03 07:46 | WPDANESEPPF ---
Anes - Initial Pre Proc Eval Procedure: Operation Date: 11/03/23 08:15 Proposed Procedures p Cystoscopy, Urethral Dilatation with Retrograde Urethrogram - Ji Kuo MD Date/Time: 11/03/23 07:46 Surgeon: Ji Kuo MD Pre Op Diagnosis: urinary retention, bph with urethral stricture Patient Data Age: 83 Gender: M Height: 1.7 m Weight: 70.31 kg Allergies Allergy/AdvReac Type Severity Reaction Status Date / Time No Known Allergies Allergy Unknown Verified 10/29/23 10:02 Home Medications Medication Instructions Recorded Confirmed Type clopidogrel 75 mg tablet 75 mg PO DAILY 01/20/23 10/29/23 History rosuvastatin 20 mg tablet 20 mg PO DAILY 01/20/23 10/29/23 History metoprolol succinate 50 mg 50 mg PO DAILY 02/06/23 10/29/23 History tablet,extended release 24 hr nitroglycerin 0.4 mg sublingual 0.4 mg PRN CHEST PAIN 02/06/23 10/29/23 History tablet tamsulosin 0.4 mg capsule See Rx Instructions .Route 02/11/23 10/29/23 Rx .COMPLEX #90 caps triamcinolone acetonide 0.1 % 1 applic topical BID #80 grams 02/24/23 10/29/23 Rx topical cream dutasteride 0.5 mg capsule 0.5 mg PO DAILY 10/29/23 10/29/23 History trifluridine 15 mg-tipiracil 6.14 1 tablet PO BID 10/29/23 10/29/23 History mg tablet (Lonsurf) Patient hx anesthesia problems: none Family hx anesthesia problems: none Results Review: All pre-operative results and documents have been reviewed as part of the pre-operative evaluation. [facility] Past Medical History Medical History Achilles tendon tear Aneurysm of infrarenal abdominal aorta Bilateral inguinal hernia Cholelithiasis Colon cancer 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 Leung. Coronary artery disease Diverticulitis Surgical History Surgical History History of Achilles tendon repair (11/29/14) Right. History of bilateral inguinal hernia repair (05/30/16) History of cardiac catheterization 07/2022 with findings of coronary artery disease with recommendation of medical therapy due to high risk for PCI, on dual anti-platelet therapy History of colon resection (04/23/22) Hand assisted laparoscopic right hemicolectomy with ileocolic anastomosis, small bowel resection with side to side anastomosis, and extensive adhesiolysis. History of colonoscopy with polypectomy History of lithotripsy (04/15/19) History of partial colectomy (04/09/09) Laparoscopic sigmoid colectomy for sigmoid adenocarcinoma. Family History Family History Other Family history non-contributory Social History Social History Social History: Surrogate medical decision maker: Theodore Bryant (son). Code status: Full code. Smoking packs per day: 0.5 Smoking cigarettes per day: 10.0 Years smoked: 20 Smoking pack-years: 10.00 Smoking status: Former smoker Tobacco type: cigarettes Second hand tobacco smoke exposure: No Smoking end date: 03/23/79 Additional smoking assessment comments: SON STATES PT STOPPED SMOKING ABOUT 45YRS AGO Alcohol intake: current Drinks per week: 1 Alcohol use details: RARELY - FEW TIMES A YEAR Substance use: never Substance use type: does not use Lack of Transportation: No Lack of Food: Never True Current Housing: I Have Housing Concerned About Future Housing: Decline to Answer Difficulty Paying Gas/Electric Bills: Decline to Answer Difficulty Paying for Meds: Decline to Answer Currently Unemployed: Decline to Answer Education: High School Diploma/GED Difficulty w/ Childcare or Family Care:
[2023-11-03] MEDS: ceFAZolin 2 GM/D5W 50 ML 2 GM/50 ML BAG IVPB (08:24)
[2023-11-03] MEDS: LIDOCAINE HCL 2% GEL UROJET 10 ML PKG MUCOUS MEM (08:50)
--- NOTE | 2023-11-03 08:51 | P.OP_ITS ---
Procedure Note - Detailed Date of Procedure 11/03/23 Pre-op Diagnosis Bulbar urethral stricture Post-op Diagnosis Same Procedure Performed Retrograde urethrogram, urethral dilation with amplantz dilators, cystoscopy, complex Lima catheter placement 18 Romanian [place] tip Surgeon Ji Kuo MD Anesthesia General Description of Procedure Patient is taken the operative suite correctly identified. Once anesthesia was obtained was placed in the dorsal lithotomy position and prepped and draped usual sterile fashion. Twenty-two Romanian scope was inserted into the meatus. He has a bulbar stricture probably about 10 for Romanian. Retrograde urethrogram was then performed contrast did make its way into the bladder. A Sensor wire was then passed through the strictured area into the bladder. Using the amplantz dilators he was dilated up to 24 Romanian. Reinspection with the scope reveals an open bulbar urethra. Prostate has minimal lateral lobe hypertrophy. It does not appear overly obstructive in nature. It also only measured 31 cc on ultrasound of the prostate. The bladder itself does have 1+ trabeculation. Both ureteral orifices normal anatomic position. There are no tumors noted. 2% viscous lidocaine was then inserted into the urethra. Eighteen Romanian [place] was then passed over the wire into the bladder. The balloon was inflated with 10 cc of sterile water. Patient is taken recovery stable condition. Plan is to leave the catheter in until Thursday for a voiding trial. I will then see him in the office a couple weeks later. This completes dictation. Please send a copy of op note to my office. Estimated Blood Loss 0 Drains Yes Packing No Pathology None sent Complications No immediate complications Condition Stable Disposition PACU
[2023-11-03] MEDS: fentaNYL CITRATE INJ (*CRX) 100 MCG/2 ML VIAL 25 MCG IV PUSH ×2 (09:32→09:44)
== END 2023-11-03 11:01 | disposition home or self-care (01) ==
PROVIDERS: PCP Family Medicine; Visit Provider Urology
PROC: 0T7D8ZZ Dilation of Urethra, Via Natural or Artificial Opening Endoscopic (ICD-10-PCS; CPT 52281; principal; 2023-11-03 08:15)
DX: N35.912 Unspecified bulbous urethral stricture, male (principal); N40.1 Benign prostatic hyperplasia with lower urinary tract symptoms; R33.8 Other retention of urine; C18.2 Malignant neoplasm of ascending colon; C18.0 Malignant neoplasm of cecum; I25.10 Atherosclerotic heart disease of native coronary artery without angina pectoris; I71.43 Infrarenal abdominal aortic aneurysm, without rupture; Z90.49 Acquired absence of other specified parts of digestive tract; Z98.0 Intestinal bypass and anastomosis status; Z79.02 Long term (current) use of antithrombotics/antiplatelets; Z87.891 Personal history of nicotine dependence
CPT/HCPCS: 52281; 51610; 74450; C1726; J0690; J1100; J2405; J2704; J3010; J7120; Q9966

== ENCOUNTER 2023-12-31 10:30 | Outpatient (CLI) | payer MEDICARE, SELFPAY ==
[2023-12-31 10:51] LABS: Eosinophils Percent Auto 0.9 % (0-4.4); Hematocrit 27.5 % (42.0-52.0); Hemoglobin 9.3 g/dL (14.0-18.0); Lymphocytes Absolute Auto 1.28 K/mm3 (0.9-3.2); Lymphocytes Percent Auto 60.7 % (18.3-44.2); Mean Corpuscular HGB Conc 33.8 g/dl (32-36); Mean Corpuscular Hemoglobin 35.8 pg (26-34); Mean Corpuscular Volume 105.8 fl (80-100); Mean Platelet Volume 8.8 fl (7.4-10.4); Monocytes Absolute Auto 0.4 K/mm3 (0.1-0.6); Monocytes Percent Auto 16.6 % (2.6-8.5); Neutrophils Absolute Auto 0.5 K/mm3 (1.3-6.7); Neutrophils Percent Auto 21.8 % (45.5-73.1); Platelet Count Result 191 k/mm3 (150-375); White Blood Count 2.1 K/mm3 (4.5-10.0)
[2023-12-31 11:21] LABS: Macrocytosis 1+ (NORMAL); Platelet Estimate Adequate (Adequate)
[2023-12-31 11:22] LABS: Anisocytosis 1+; Schistocytes None Seen
== END 2023-12-31 10:31 | disposition home or self-care (01) ==
PROVIDERS: PCP Family Medicine; Visit Provider Internal Medicine Medical Oncology
DX: C18.2 Malignant neoplasm of ascending colon (principal)
CPT/HCPCS: 36415; 85025

== ENCOUNTER 2024-01-11 14:50 | Outpatient (CLI) | payer MEDICARE, SELFPAY ==
[2024-01-11 15:26] LABS: Basophils Percent Auto 0.8 % (0.2-1.2); Eosinophils Percent Auto 0.2 % (0-4.4); Hematocrit 30.2 % (42.0-52.0); Hemoglobin 10.1 g/dL (14.0-18.0); Immature Granulocyte Absolute 0.02 K/mm3 (0.00-0.031); Immature Granulocyte Percent A 0.4 % (0-0.5); Lymphocytes Absolute Auto 2.01 K/mm3 (0.9-3.2); Mean Corpuscular HGB Conc 33.4 g/dl (32-36); Mean Corpuscular Hemoglobin 35.6 pg (26-34); Mean Corpuscular Volume 106.3 fl (80-100); Mean Platelet Volume 8.8 fl (7.4-10.4); Monocytes Absolute Auto 0.4 K/mm3 (0.1-0.6); Neutrophils Absolute Auto 2.4 K/mm3 (1.3-6.7); Neutrophils Percent Auto 48.6 % (45.5-73.1); Platelet Count Result 210 k/mm3 (150-375); Red Blood Count 2.84 M/mm3 (4.6-6.20); Red Cell Distribution Width 17.5 % (11.5-14.5); White Blood Count 4.9 K/mm3 (4.5-10.0)
[2024-01-11 15:40] LABS: Ovalocytes 1+; Platelet Estimate Adequate (Adequate); Schistocytes None Seen
== END 2024-01-11 14:51 | disposition home or self-care (01) ==
PROVIDERS: PCP Family Medicine; Visit Provider Internal Medicine Medical Oncology
DX: C18.2 Malignant neoplasm of ascending colon (principal)
CPT/HCPCS: 36415; 85025

== ENCOUNTER 2024-02-01 10:41 | Outpatient (CLI) | payer MEDICARE, SELFPAY | END 2024-02-01 10:42 | disposition home or self-care (01) | PROVIDERS: PCP Family Medicine; Visit Provider Internal Medicine Medical Oncology | DX: C18.2 Malignant neoplasm of ascending colon (principal) | CPT/HCPCS: 36415; 82378 ==

== ENCOUNTER 2024-08-22 20:29 | Inpatient (IN) | payer MEDICARE, SELFPAY ==
[2024-08-22] VITALS (25 sets, daily range): BP systolic 68–103; BP diastolic 43–67; PULSE 86–109; RESP 14–21; TEMP 36.7–38.6; O2SAT 74–99
--- NOTE | ~2024-08-22 | US_ITS ---
EXAMINATION: US guide abscess drainage DATE: 08/24/2024 16:42 INDICATION: Right upper quadrant perihepatic abscess TECHNIQUE: The procedure including the risks and benefits was discussed with the patient and the vladimir ent's son. Oral and written consent were obtained. The patient was confirmed to be receiving appropri ate antibiotic coverage. Prior ultrasound imaging is reviewed and a lateral intercostal approach dire ctly overlying abscess was chosen. The skin overlying the liver was prepped and draped in usual steri le fashion. Anesthetic was administered with 1% lidocaine subcutaneously. An 8.5 Fr catheter was ins erted into the perihepatic abscess by trocar technique with continuous ultrasound observation. The me david stiffener and trocar needle were removed, and the pigtail tip was formed and locked with position confirmed by ultrasound. Fluid was aspirated from the abscess. The catheter was stitched to the skin with suture. Antibiotic ointment and a sterile dressing were applied. The catheter was then attached to suction drainage at the conclusion of the procedure. There were no immediate complications. FINDINGS: Ict Business Analyst image demonstrates a 3.9 x 1.5 cm anechoic perihepatic abscess along the lateral samy in of the right hepatic lobe. Subsequent images demonstrate the loop of the catheter within the absce ss. 18 mL of opaque ruiz purulent appearing fluid was aspirated and sent to lab for Gram stain and cul tures including fungal cultures. Final images show the formed pigtail catheter tip in the decompress ed abscess cavity. IMPRESSION: 1. Successful ultrasound-guided or hepatic abscess drainage catheter placement. 2. 18 mL of opaque ruiz purulent appearing fluid was sent sent for aerobic, anaerobic, and fungal cult ures. 3. The catheter will be managed by general surgery. Reviewed, dictated and finalized at location A. IMPRESSION: 1. Successful ultrasound-guided or hepatic abscess drainage catheter placement. 2. 18 mL of opaque ruiz purulent appearing fluid was sent sent for aerobic, anae robic, and fungal cultures. 3. The catheter will be managed by general surgery.
--- NOTE | ~2024-08-22 | XR_ITS ---
EXAMINATION: XR chest 1V portable Exam Date/Time: 08/22/2024 21:22 CDT HISTORY: chest pain Comparison: 07/26/2022. RESULT: Lines, tubes, and devices: Cholecystectomy clips. Lungs and pleura: Streaky subsegmental bibasilar opacities. Cardiomediastinal silhouette: Stable. Other: No acute osseous or upper abdominal finding. IMPRESSION: Subsegmental bibasilar atelectasis/consolidation. Reviewed, dictated and finalized at location K.
--- NOTE | ~2024-08-22 | XR_ITS ---
EXAM: XR shoulder LT min 2V DATE: 08/22/2024 22:58 HISTORY: pain, hx cancer, poss pathologic issue . COMPARISON: None available. FINDINGS: Normal mineralization. No fracture or dislocation. No lytic or blastic lesion. 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 No erosion or periosteal change. Regional soft tis sues are unremarkable. IMPRESSION: No acute osseous finding the left shoulder. Reviewed, dictated and finalized at location K.
--- NOTE | ~2024-08-22 | CT_ITS ---
CT of the Abdomen and Pelvis: Indication: Colon cancer, buttock cellulitis Technique: 2.5 mm axial scans were obtained through the abdomen and pelvis following intravenous adm inistration of 100 cc of Omnipaque 350. Dose reduction technique was used on this scan by utilizing a utomated exposure control and iterative reconstruction technique. The dose-length product (DLP) was 7 75.66 mGy-cm. COMPARISON: 05/22/2023 Findings: Scans through the lung bases demonstrate minimal pleural effusions with minimal bibasilar pulmonary edema/atelectatic change. In the intrahepatic region adjacent to the inferior to the right hepatic lobe, there is a peripherall y enhancing fluid collection measuring approximately 6.2 x 2.1 x 5.0 cm, with an irregular calcificat ion measuring 9 mm within it (axial images 62-73). This compatible abscess, possibly centered around a dropped gallstone. There is a new fluid attenuation lesion in the inferior right hepatic lobe tip a s compared to prior exam, measuring 2.3 cm in diameter, which could reflect extension of abscess into the inferior hepatic lobe versus interval development of hepatic cyst (axial image 66). There is dif fuse hepatic steatosis. 9 mm nonobstructing left renal stone present. The spleen, pancreas, adrenals and right kidney are within normal limits. Cholecystectomy clips are present. There are atherosclerot ic calcifications of the aorta. There is mild aneurysmal dilatation of distal abdominal aorta to 3.3 cm in diameter. No lymphadenopathy. No bowel obstruction or bowel wall thickening. No evidence of prior right partial colectomy and recto sigmoid anastomosis.. Images through the pelvis were performed. Urinary bladder unremarkable. No pelvic mass seen. No ascit es. Impression: 6.2 x 2.1 x 5.0 cm abscess along the inferior margin of the right hepatic lobe, possibly related to a dropped gallstone. Suspected extension into the inferior hepatic lobe with a 2.2 cm fluid attenuatio n area in the liver in this region, which is new from prior exam. 3.3 cm distal abdominal aortic aneurysm. Minimal pleural effusions with mild bibasilar pulmonary edema/atelectasis. 9 mm nonobstructing left renal stone. Reviewed, dictated and finalized at [facility]. Impression: 6.2 x 2.1 x 5.0 cm abscess along the inferior margin of the right hepatic lobe, possibly related to a dropped gallstone. Suspected extension into the inferior hepatic lobe with a 2.2 cm fluid attenuation area in the liver in this region, which is new from prior exam. 3.3 cm distal abdominal aortic aneurysm. Minimal pleural effusions with mild bibasilar pulmonary edema/atelectasis. 9 mm nonobstructing left renal stone.
--- NOTE | ~2024-08-22 | XR_ITS ---
EXAMINATION: XR chest PICC line DATE: 08/23/2024 11:20 INDICATION: PICC line placement TECHNIQUE: frontal view of the chest was obtained. COMPARISON: Chest radiograph dated 08/22/2024 FINDINGS: Right upper extremity peripherally inserted central venous catheter (PICC) tip at the mid superior v presley cava. There are mild bibasilar interstitial and airspace opacities. No pleural effusion or pneumo thorax. Heart size is normal. Cholecystectomy clips in right upper quadrant. IMPRESSION: 1. Right PICC line tip in the midsuperior vena cava. 2. Mild bibasilar opacities which could represent atelectasis, mild pulmonary edema or pneumonia. Reviewed, dictated and finalized at location A. IMPRESSION: 1. Right PICC line tip in the midsuperior vena cava. 2. Mild bibasilar opacities which could represent atelectasis, mild pulmonary e garima or pneumonia.
--- NOTE | ~2024-08-22 | US_ITS ---
EXAMINATION: US abdomen limited DATE: 08/24/2024 12:15 INDICATION: Assess perihepatic abscess TECHNIQUE: Multiple grayscale and Doppler ultrasound images of the region of concern at the lateral r ight upper quadrant were obtained. COMPARISON: CT dated 08/23/2024 FINDINGS: There is a 12 mm echogenic and shadowing dropped gallstone within a 6.2 x 2.5 cm fluid collection lik dino representing a perihepatic abscess. Immediately underlying liver there is a 3.7 x 2.7 cm echogeni c region within the liver with small serpiginous anechoic regions of fluid the largest measuring 7 mm in maximal diameter. There is a hypoechoic tract extending from the lesion to the overlying abscess suggesting secondary involvement of the liver with region of phlegmonous change progressing towards b ut not yet having organized into a well-defined hepatic abscess. IMPRESSION: 1. 6.2 x 2.5 cm perihepatic abscess surrounding a likely dropped gallstone. 2. Small serpiginous fluid collections measuring up to 7 mm diameter within a 3.7 x 2.7 cm echogenic region within the immediately underlying liver. This consistent with a region of phlegmonous change p rogressing towards intrahepatic abscess. Reviewed, dictated and finalized at location A. IMPRESSION: 1. 6.2 x 2.5 cm perihepatic abscess surrounding a likely dropped gallstone. 2. Small serpiginous fluid collections measuring up to 7 mm diameter within a 3 .7 x 2.7 cm echogenic region within the immediately underlying liver. This cons istent with a region of phlegmonous change progressing towards intrahepatic abs cess.
--- OUTSIDE RECORDS SUMMARY | 2024-08-22 20:31 | XMS_ITS | Continuity of Care Document ---
Author Organization [facility] Address [address] [facility] [place] [address] [place] [address] Phone Care Team Providers Care Ux Researcher Name Role Phone Gabino Laughlin MD Unavailable Unavailable Allergies, Adverse Reactions, Alerts Substance Reaction Status Criticality No Known Allergies Active No Inform ation Medications Medication Instructions Dosage Effective Dates (start - stop) Status Comments No Drug Therapy Prescribed Procedures Procedure Date OFFICE/OUTPATIENT VISIT, EST OFFICE/OUTPATIENT VISIT, EST OFFICE/OUTPATIENT VISIT, EST Advance Directives Directive Yes / No Effective Date File Name No Information Encounters Encounter Description Practice Location Reason(s) For Visit Diagnoses Date Provider Providers Copied on Encounter [facility], [address] [place], [id number], [place] tel:[phone] [facility] No Information 5 Truman Lloyd. [address] [place], [place], [id number] , [place]. tel:[phone] Referring Provider: Gabino Laughlin, [address] [place], [place], [id number]. tel:[phone] OFFICE/OUTPA TIENT VISIT, EST [facility], [address] [employer], [place], [id number], [place] tel:[phone] [facility] achileus tendon (chief complaint)Hypot hyroidism (chief complaint)HTN (chief complaint)colon CA (chief complaint) Achilles tendon ruptureUnspeci fied hypothyroidism Unspecified essential hypertension 5 Truman Lloyd. [address] [facility] [place] [id number] , [place]. tel:[phone] Referring Provider: Gabino Laughlin, [address], [place], [place], [id number]. tel:[phone] OFFICE/OUTPA TIENT VISIT, [facility], [address] [place], [place], [id number], [place] tel:[phone] [facility] sinus allergy (chief complaint) Dietary surveillance and counselingOthe r specified acquired hypothyroidism Allergic rhinitis, cause unspecifiedHyp ertension, Unspecified 2 Truman Lloyd. [address], [address], [place], [place], [id number] , [place]. [phone] Referring Provider: Gabino Laughlin [address] [facility] [address], [place], [place], [id number]. tel:[phone] OFFICE/OUTPA TIENT VISIT, [facility], [address], [place], [place], [id number], [place] tel:[phone] [facility] hyperlipidemia (chief complaint)hypot hyroidism (chief complaint)vitam in D (chief complaint)hyper tension (chief complaint) Dietary surveillance and counselingHypo thyroidismOthe r and unspecified hyperlipidemia Unspecified vitamin d deficiencyHype rtension, Unspecified 2 Truman Lloyd. [address], [address], [place], [place], [id number] , [place]. [phone] Family History Family Member Type Diagnosis Age At Onset Brother Problem (finding) Alive and well Mother Problem (finding) old age Father Problem (finding) of old age Payers Payer name Insurance type Covered alliance party ID Authoriza tion(s) No Information Social History Type Description Quantity Date Captured Comments Alcohol Use Details Unknown Caffeine Use Details Unknown Tobacco Use Status Smoking Status No Information Sex Male Chief Complaint And Reason For Visit No Information Plan Of Treatment Date Type Action Status Referral Ordered: Joe Nunn (related to Achilles tendon rupture) ordered Referral Referred To: Joe Nunn [address] [place], [phone] Ordered: Referrals: Joe Nunn. Evaluate and treat ordered Referral Ordered: MRI LOWER EXTREMITY W/O DYE Right leg ordered History Of Present Illness Encounter Date Complaint History Of Prese nt Illness achileus tendon Pt slipped on ki tchen floor yesterday and injuried right posterior ankle area. Pt denies any head injury. Pt went to ER and was told he has tear of achielus tendon Pt has difficulty dorsi flexion of right ankle Hypothyroidism Pt has hypothyro idism. Pt is noncompliant and he has vikki done lab yet Pt is not on any meds HTN Pt has HTN. Pt d enies any chest pain or headache colon CA Pt had colon CA and he had surgery and last colonoscopy last year. Pt denies any GI complaitns Medications Administered Medication Instructions Dosage Effective Dates (start - stop) Status Comments No Drug Therapy Prescribed Instructions Date Instruction Additional Infor eugenia Decrease caloric intake Related to Dietary surveillance counseling Dietary counseling Related to Di etary surveillance counseling Decrease caloric intake Related to Dietary surveillance counseling Physical activity counseling Rel ated to Dietary surveillance counseling Assessments Type Assessment Date No Information
--- OUTSIDE RECORDS SUMMARY | 2024-08-22 20:31 | XMS_ITS | Clinical Summary ---
Author Organization [facility] Alfreda Almeida Address [address] [place] [address] Care Team Providers Care Screen Tacker Name Role Phone Unavailable Primary Care Provider Unavailabl e Allergies No known active allergies Medications tamsulosin (FLOMAX) 0.4 mg capsule TAKE 1 CAPSULE BY MOUTH EVERY DAY AT BEDTIME 04/10/2022 Active dutasteride (AVODART) 0.5 mg Capsule Take 0.5 mg by mouth daily. 04/10/2022 Active Active Problems No known active problems Social History Tobacco Use Types Packs/Day Years Used Date Smoking Tobacco: Former Cigarettes 0.5 4 0 03/23/1978 - 03/23/1982 Smokeless Tobacco: Never Tobacco Cessation:Counseling Given: Not Answered Sex and Gender Information Value Date Recorded Sex Assigned at Not on file Legal Sex Male 1:35 PM APPLICATION DESIGNER Gender Identity Not on file Sexual Orientation Not on file Last Filed Vital Signs Vital Sign Reading Time Taken Comments Blood Pressure 152/73 05/30/2022 2:02 PM APPLICATION DESIGNER Pulse 66 05/30/2022 1:59 PM APPLICATION DESIGNER Temperature 36.3 C (97.4 F) 05/30/2022 1:59 PM APPLICATION DESIGNER Respiratory Rate 10 05/30/2022 1:59 PM APPLICATION DESIGNER Oxygen Saturation 100% 05/30/2022 1:59 PM APPLICATION DESIGNER Inhaled Oxygen Concentration - - Weight 71.2 kg (157 lb) 05/30/2022 1:59 PM APPLICATION DESIGNER Height 167.6 cm (5' 6) 05/01/2022 2:55 PM APPLICATION DESIGNER Body Mass Index 25.34 05/01/2022 2:55 PM APPLICATION DESIGNER Plan of Treatment Health Maintenance Due Date Last Done Comments DTAP/TDAP/TD VACCINES (1 - Tdap) 07/17/1959 PNEUMOCOCCAL VACCINE 50+ YEARS (1 of 1 - PCV) 07/17/18 90 ZOSTER VACCINE (1 of 2) 07/17/1989 RSV VACCINE (60+ or ) (1 - 1-dose 75+ series) 07/17/2014 INFLUENZA VACCINE (#1) 2023 Insurance [facility] [employer] [facility] MEDICARE PART A AND B
--- OUTSIDE RECORDS SUMMARY | 2024-08-22 20:31 | XMS_ITS ---
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 Angina pectoris, unspecified 01/06/2023 Coronary artery disease invo lving [place] coronary artery of [place] heart without angina pectoris 08/12/2022 Malignant neoplasm of ascending colon 07/04/2022 Cancer Staging:Clinical stage from 07/04/2022:Stage IIIB(cT3, cN1c, cM0) - Signed by Duke eLung DO on 07/04/2022 Current Treatment and Therapy Plans darbepoetin (ARANESP) injection every 4 weeks* Plan Start Date:06/02/2024 Plan Provider:Duke Leung DO Linked Problems Antineoplastic chemotherapy induced anemiaMalignant neoplasm of ascending colon (HCC) Treatment Medications No medications scheduled. Fruquintinib PO 28 Day Cycles - GI* Plan Start Date:07/08/2024 Plan Provider:Duke Leung DO Linked Problems Malignant neoplasm of ascend ing colon (HCC) Treatment Medications Current Day (Day 1, Cycle 2 - Planned for 08/06/2024) fruquintinib (FRUZAQLA) fruquintinib (FRUZAQLA) 5 mg capsule Past Treatment and Therapy Plans Oncology Chemotherapy Treatment Plan Name Start Date Discontinue Date Treatment Medications Discontinue Reason Plan Provider Cycles Trifluri dine/Tip iracil PO BID 28 days/cyc le - GI 09/23/2023 07/08/2024 No medications scheduled. Protocol Amendment/Duke Sales DO 4 of 12 cycles completed
--- OUTSIDE RECORDS SUMMARY | 2024-08-22 20:31 | XMS_ITS | Encounter Summary ---
Author Organization [facility] Address [address] [place] [address] Phone Care Team Providers Care Health Care / Medical Job Titles Name Role Phone XochitlDuke Grey DO Unavailable [phone] Julian Quevedo MD Primary Care Provider Encounter Details Date Type Department Care Team (Late st Contact Info) Description 06/30/2024 Results Follow-Up [facility] Oncology [address] [facility] [address] [place] [phone] Bianka Garcia RN Comprehensive metabolic panel, CEA, CBC with auto differential, Additional followed-up results: 2 Social History Tobacco Use Types Packs/Day Years Used Date Smoking Tobacco: Former Cigarettes 0.5 4 1 976 - 1980 Smokeless Tobacco: Never AUDIT-C Answer Date Recorded Q1: How often do you have a drink containing alc ohol? Never 07/15/2023 Average Number of Drinks Not on file 024 Q3: How often do you have si x or more drinks on one occasion? Never 07/15/2023 Personal Safety Answer Date Recorded Have you ever been in or are you currently in a harmful physical or emotional relationship or is someone making you feel afraid or unsafe? 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 Gender Identity Not on file Sexual Orientation Not on file Occupation Industry Job Start Date Job End Date Retired Not on file Not on file Not on file documented as of this encounter Plan of Treatment Not on file documented as of this encounter Visit Diagnoses Not on filedocumented in this encounter Care Teams Health Care / Medical Job Titles Relationship Specialty Start Date End Date Julian Quevedo MD [address] [facility] [address] [place] [address] PCP - General Family Medicine 06/30/24 Duke Leung DO [address] [place] [address] MEDICAL ONCOLOGY, [facility] [address] [place] [address] Medical Oncologist/Assessment Coordinator Hematology and Oncology 01/27/23 documented as of this encounter
--- OUTSIDE RECORDS SUMMARY | 2024-08-22 20:31 | XMS_ITS | Clinical Summary ---
Author Organization [facility] Address [address] [place] [address] Care Team Providers Care Hyster Machine Operator Name Role Phone XochitlDuke diaz DO Unavailable [phone] Julian Quevedo MD Primary Care Provider Allergies No known active allergies Medications dutasteride (AVODART) 0.5 mg capsule Take 1 capsule (0.5 mg total) by mouth daily 04/28/19 24 Active triamcinolone (KENALOG) 0.1 % cream APPLY TOPICALLY TO THE AFFECTED AREA TWICE DAILY 07/30/19 24 Active metoprolol XL (TOPROL-XL) 50 mg extended release tablet TAKE 1 TABLET(50 MG) BY MOUTH DAILY 90 tablet 3 02/23/20 24 Active tamsulosin (FLOMAX) 0.4 mg extended release capsule 1 capsule (0.4 mg total) Active clopidogreL (PLAVIX) 75 mg tablet TAKE 1 TABLET(75 MG) BY MOUTH EVERY MORNING 90 tablet 3 07/01/19 25 Active ondansetron (ZOFRAN) 4 mg tablet Take 1 tablet (4 mg total) by mouth every 6 (six) hours as needed for nausea or vomiting 30 tablet 2 07/09/19 25 Active fruquintinib (FRUZAQLA) 5 mg capsuleIndicat ions:Malignant neoplasm of ascending colon (HCC) Take 1 capsule (5 mg total) by mouth daily Swallow whole. Take for 21 days followed by 7 days off treatment for each 28-day cycle. 21 capsule 3 07/09/19 25 025 Active amoxicillin (AMOXIL) 875 mg tablet Take 1 tablet (875 mg total) by mouth every 12 (twelve) hours 07/28/19 25 Active fruquintinib (FRUZAQLA) 5 mg capsuleIndicat ions:Malignant neoplasm of ascending colon (HCC) Take 1 capsule (5 mg total) by mouth daily Swallow whole. Take for 21 days followed by 7 days off treatment for each 28-day cycle. 21 capsule 3 08/10/19 [address] (VOLTAREN) 50 mg EC tablet Take 1 tablet (50 mg total) by mouth 2 (two) times a day for 14 days 28 tablet 08/18/19 25 025 Active traMADoL (ULTRAM) 50 mg tablet Take 1 tablet (50 mg total) by mouth every 6 (six) hours as needed for pain 60 tablet 08/18/19 25 Active rosuvastatin (CRESTOR) 20 mg tablet TAKE 1 TABLET(20 MG) BY MOUTH DAILY 90 tablet 2 08/23/19 25 Active rosuvastatin (CRESTOR) 20 mg tablet TAKE 1 TABLET(20 MG) BY MOUTH DAILY 90 tablet 05/25/19 25 025 Discontinued Active Problems Problem Noted Date Diagnosed Date 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 Angina pectoris, unspecified 01/06/2023 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 08/12/2022 Malignant neoplasm of ascending colon 07/04/2022 Cancer Staging:Clinical stage from 07/04/2022:Stage IIIB(cT3, cN1c, cM0) - Signed by Duke Leung DO on 07/04/2022 Encounters Date Type Department Care Team Description 08/09/2024 Orders Only [facility] Oncology [address] [place] [address] [phone] Doris Alejo, RN Malignant neoplasm of ascending colon (HCC) (Primary Dx) 08/05/2024 Orders Only [facility] Oncology [address] [place] [address] [phone] Duke Leung DO 07/28/2024 2:00 PM CDT Office Visit [facility] Oncology [address] [place] [address] [phone] Duke Leung, DO Malignant neoplasm of ascending colon (HCC) (Primary Dx) 07/28/2024 1:30 PM CDT Lab [facility] at [address] [address] Malignant neoplasm of ascending colon (HCC); Antineoplastic chemotherapy induced anemia 07/08/2024 Orders Only [facility] Oncology [address] [place] [address] [address] [place] [phone] Duke Leung, DO 07/08/2024 Documentation [facility] Oncology [address] [place] [phone] Duke Leung, DO 06/30/2024 9:30 AM CDT Lab [facility] at [address] [address] Malignant neoplasm of ascending colon (HCC); Antineoplastic chemotherapy induced anemia 06/30/2024 8:00 AM CDT Office Visit [facility] Cardiology [address] [facility] [address] [place] [phone] Yosi Berrios MD Coronary artery disease involving cheesh-na coronary artery of cheesh-na heart without angina pectoris (Primary Dx) 06/30/2024 Results Follow-Up [facility] Oncology [address] [place] [address] [phone] Bianka Garcia RN Comprehensive metabolic panel, CEA, CBC with auto differential, Additional followed-up results: 2 06/26/2024 Orders Only [facility] Oncology [address] [place] [phone] Duke Leung, DO 06/02/2024 1:15 PM CDT Lab [facility] at [address] [address] Malignant neoplasm of ascending colon (HCC) 06/02/2024 12:45 PM CDT Infusion [facility] at [address] [phone] Malignant neoplasm of ascending colon (HCC) (Primary Dx); Antineoplastic chemotherapy induced anemia 06/02/2024 Results Follow-Up [facility] Oncology [address] [place] [address] [address] [place] [phone] Bianka Garcia, RN Comprehensive metabolic panel, CEA, CBC with auto differential, Additional followed-up results: 2 06/02/2024 Telephone [facility] Oncology [address] [place] [address] [address] [place] [phone] AlanisTimmyKelle, INDUSTRY CONSULTANT 06/01/2024 Telephone [facility] Oncology [address] [place] [phone] Duke Leung, 05/31/2024 Orders Only [facility] Oncology [address] [place] [address] [address] [place] [phone] Duke Leung, 05/30/2024 Orders Only [facility] Oncology [address] [place] [address] [address] [place] [phone] Duke Leung, 05/27/2024 Orders Only [facility] Oncology [address] [place] [address] [address] [place] [phone] Duke Leung, 05/26/2024 3:00 PM STOCK CONTROLLER Office Visit [facility] Oncology [address] [place] [phone] Duke Leung, DO Malignant neoplasm of ascending colon (HCC) (Primary Dx); Antineoplastic chemotherapy induced anemia from Last 3 Months Immunizations Immunization Administration Dates Next Due Influenza, Quadrivalent, Hig h Dose, Preservative Free, Intrr 12/28/2021 Surgical History Surgery Date Site/Laterality Comments COLON SURGERY 04/23/2022 - 05/20/2022 COLONOSCOPY 04/23/2022 - 05/20/2022 CHOLECYSTECTOMY CARDIAC CATHETERIZATION US GUIDED BIOPSY ABDOMEN RETROPERITONEAL 07/15/2023 N/A Medical History Medical History Date Comments Colon cancer (HCC) BPH (benign prostatic hyperplasia) Hypertension Hypercholesteremia Difficulty urinating after anest hesia Family History Medical History Relation Name Comments No Known Problems Brother No Known Problems Father No Known Problems Maternal Grandfather No Known Problems Maternal Grandmother No Known Problems Mother No Known Problems Paternal Grandfather No Known Problems Paternal Grandmother No Known Problems Sister Relation Name Status Comments Brother Alive Father Maternal Grandfather Maternal Grandmother Mother Paternal Grandfather Paternal Grandmother Sister Alive Social History Tobacco Use Types Packs/Day Years Used Date Smoking Tobacco: Former Cigarettes 0.5 4 1 976 - 1979 Smokeless Tobacco: Never Tobacco Cessation:Counseling Given: Not Answered AUDIT-C Answer Date Recorded Q1: How often [...] on file Legal 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 Gender Identity Not on file Sexual Orientation Not on file Occupation Industry Job Start Date Job End Date Retired Not on file Not on file Not on file Obstetrics History Last Filed Vital Signs Vital Sign Reading Time Taken Comments Blood Pressure 167/84 07/28/2024 2:14 PM CDT 168/80 manual Pulse 54 07/28/2024 2:14 PM CDT Temperature 36.3 C (97.4 F) 07/28/2024 2:14 PM CDT Respiratory Rate 18 07/28/2024 2:14 PM CDT Oxygen Saturation 100% 07/28/2024 2:1 4 PM CDT Inhaled Oxygen Concentration - - Weight 70.9 kg (156 lb 6.4 oz) 07/28/2024 2:14 PM CDT with shoes Height 173 cm (5' 8.11) 07/28/2024 2:1 4 PM CDT Body Mass Index 23.7 07/28/2024 2:14 PM CDT Plan of Treatment Health Maintenance Due Date Last Done Comments Depression Screening 1940 DTaP/Tdap/Td Vaccine (1 - Tdap) 07/17/1950 Hepatitis B Screening 07/17/1957 Pneumococcal vaccine 65+ (1 of 2 - PCV) 07/17/1958 Zoster Vaccine (1 of 2) 07/17/1958 Well Visit 65+ 07/17/2004 Covid-19 Vaccine (5 - 2023-2 5 season) 2023 01/07/2022, 02/07/2021, 06/05/2020, Additional history exists Fall Risk Assessment 07/14/2024 07/15/2023 Influenza Vaccine (Season Ended) 2024 12/29/19 22 Procedures Procedure Name Priority Date/Time Associated Diagnosis Comments EGFR Routine 07/28/2024 1:30 PM CDT Malignant neoplasm of ascending colon (HCC) DIFFERENTIAL AUTO Routine 07/28/2024 1:3 0 PM CDT Malignant neoplasm of ascending colon (HCC) CEA Routine 07/28/2024 1:30 PM CDT Malignant neoplasm of ascending colon (HCC) CBC WITH AUTO DIFFERENTIAL Routine 07/28/2024 1:30 PM CDT Malignant neoplasm of ascending colon (HCC) COMPREHENSIVE METABOLIC PANEL Routine 07/28/2024 1:30 PM CDT Malignant neoplasm of ascending colon (HCC) EGFR Routine 06/30/2024 9:22 AM CDT Malignant neoplasm of ascending colon (HCC) DIFFERENTIAL AUTO Routine 06/30/2024 9:2 2 AM CDT Malignant neoplasm of ascending colon (HCC) CBC WITH AUTO DIFFERENTIAL Routine 06/30/2024 9:22 AM CDT Malignant neoplasm of ascending colon (HCC) CEA Routine 06/30/2024 9:22 AM CDT Malignant neoplasm of ascending colon (HCC) COMPREHENSIVE METABOLIC PANEL Routine 06/30/2024 9:22 AM CDT Malignant neoplasm of ascending colon (HCC) EGFR Routine 06/02/2024 1:08 PM CDT Malignant neoplasm of ascending colon (HCC) DIFFERENTIAL AUTO Routine 06/02/2024 1:0 8 PM CDT Malignant neoplasm of ascending colon (HCC) CBC WITH AUTO DIFFERENTIAL Routine 06/02/2024 1:08 PM CDT Malignant neoplasm of ascending colon (HCC) CEA Routine 06/02/2024 1:08 PM CDT Malignant neoplasm of ascending colon (HCC) COMPREHENSIVE METABOLIC PANEL Routine 06/02/2024 1:08 PM CDT Malignant neoplasm of ascending colon (HCC) from Last 3 Months Results * eGFR (07/28/2024 1:30 PM CDT) eGFR 87 >=60 mL/min/1. 73 m2 Comment: Interpretive Data Reference Interval Normal >/= 90 mL/min/1.73m2 Mildly decreased* 60 - 89 mL/min/1.73m2 Mildly to moderately decreased 45 - 59 mL/min/1.73m2 Moderately to severely decreased 30 - 44 mL/min/1.73m2 Severely decreased 15 - 29 mL/min/1.73m2 Kidney Failure < 15 mL/min/1.73m2 *Relative to young adult level Estimated glomerular filtration rate is determined by the 2020 CKD-EPI equation recommended by the National Kidney Foundation (A Unifying Approach to GFR Estimation: Recommendations of the NKF-ASK Task Force on Reassessing the Inclusion of Race in Diagnosing Kidney Disease, JASN 2020). The CKD-EPI equation should not be used for patients with unstable renal function and has not been validated in children and those over 70. Current interpretive data was last reviewed 2021. Testing performed by: [facility], [address] [place] [address], [place]., [address] Blood 07/28/2024 1:30 PM CDT 07/28/2024 1:31 PM CDT us Duke Leung DO LAB BLOOD ORDERABLES Final R esult MADHAVI [address] [facility] Department of Laboratories [place], [place] [phone] * Differential, auto (07/28/2024 1:30 PM CDT) Neutrophil abs 1.88 1.50 - 6.50 K/cumm Comment:Testing performed by : [address] [address] Imm gran abs 0.02 0.00 - 0.10 K/cumm MADHAVI Comment:Testing performed by : [address] [address] Lymphocyte abs 2.26 0.80 - 3.30 K/cumm MADHAVI Comment:Testing performed by : [address] [address] Monocyte abs 0.46 0.20 - 0.80 K/cumm MADHAVI Comment:Testing performed by : [address] [address] Eosinophil abs 0.02 0.00 - 0.50 K/cumm MADHAVI Comment:Testing performed by : [address] [address] Basophil abs 0.03 0.00 - 0.10 K/cumm MADHAVI Comment:Testing performed by : [address] [address] Neutrophil pct 40.3 % [facility] Comment: Interpretive Data Percent cell count reference ranges are not reported, since discordance with absolute values may lead to misinterpretation of CBC data. Current Interpretive Data was last revised on 2017. Testing performed by: [address] [address] Imm gran pct 0.4 % MADHAVI Comment: Interpretive Data Percent cell count reference ranges are not reported, since discordance with absolute values may lead to misinterpretation of CBC data. Current Interpretive Data was last revised on 2017. Testing performed by: [address] [address] Lymphocyte pct 48.4 % CERNER Comment: Interpretive Data Percent cell count reference ranges are not reported, since discordance with absolute values may lead to misinterpretation of CBC data. Current Interpretive Data was last revised on 2017. Testing performed by: [address] [address] Monocyte pct 9.9 % MADHAVI Comment: Interpretive Data Percent cell count reference ranges are not reported, since discordance with absolute values may lead to misinterpretation of CBC data. Current Interpretive Data was last revised on 2017. Testing performed by: [address] [address] Eosinophil pct 0.4 % MADHAVI Comment: Interpretive Data Percent cell count reference ranges are not reported, since discordance with absolute values may lead to misinterpretation of CBC data. Current Interpretive Data was last revised on 2017. Testing performed by: [address] [address] Basophil pct 0.6 % MADHAVI Comment: Interpretive Data Percent cell count reference ranges are not reported, since discordance with absolute values may lead to misinterpretation of CBC data. Current Interpretive Data was last revised on 2017. Testing performed by: [address] [address] Blood 07/28/2024 1:30 PM CDT 07/28/2024 1:31 PM CDT Duke Leung DO LAB BLOOD ORDERABLES Final R esult M[facility] [address] [facility] Department [place] [address] * (ABNORMAL) CBC with auto differential (07/28/2024 1:30 PM CDT) Pathologist [facility] WBC 4.67 3.80 - 9.90 K/cumm Comment:Testing performed by : [address] [address] Hgb 12.0(L) 13.0 - 17.5 g/dL MADHAVI Comment:Testing performed by : [address] [address] Hct 34.9(L) 38.9 - 50.3 % MADHAVI Comment:Testing performed by : [address] [address] Plt 129(L) 150 - 400 K/cumm MADHAVI Comment:Testing performed by : [address] [address] MPV 9.1 9.1 - 12.3 fL MADHAVI Comment:Testing performed by : [address] [address] RBC 3.44(L) 4.30 - 5.80 M/cumm MADHAVI Comment:Testing performed by : [address] [address] MCV 101.5(H) 81.3 - 96.4 fL MADHAVI Comment:Testing performed by : [address] [address] MCH 34.9(H) 27.1 - 33.3 pg MADHAVI Comment:Testing performed by : [address] [address] MCHC 34.4 32.3 - 35.7 g/dL MADHAVI Comment:Testing performed by : [address] [address] RDW CV 15.0(H) 11.1 - 14.9 % MADHAVI Comment:Testing performed by : [address], [address] RDW SD 56.1(H) 35.7 - 48.1 fL MADHAVI Comment:Testing performed by : [address] [address] NRBC abs 0.00 0.00 - 0.01 K/cumm MADHAVI Comment:Testing performed by : [address] [address] ANC Prelim 1.88 1.50 - 6.50 K/cumm MADHAVI Comment: Interpretive Data The rapid ANC is a preliminary automated count and may vary from the final ANC (Neut Abs) reported in the WBC differential that follows. Current interpretive data was last revised 2024. Testing performed by: [address] [address] Blood 07/28/2024 1:30 PM CDT 07/28/2024 1:31 PM CDT Duke Leung LAB BLOOD ORDERABLES Final R esult Performing Organization Address [facility] de Phone Number [address] [place] [employer] [place] [address] * (ABNORMAL) CEA (07/28/2024 1:30 PM CDT) CEA 70.4(H) <=5.0 ng/mL Comment: Interpretive Data: Reference Range: Non-Smokers: 0.0 5.0 ng/mL Smokers: 0.0 6.5 ng/mL The Oswaldo CEA assay procedure was used. Results from different manufacturers or methods may not be comparable. Serial testing should be performed using the same method. Current interpretive data was last revised 2022. Testing performed by: [address] [address] Blood 07/28/2024 1:30 PM CDT 07/28/2024 3:59 PM CDT Duke Leung LAB BLOOD ORDERABLES Final R [facility] Performing Organization Address [facility] de Phone Number [address] [place] [address] * Comprehensive metabolic panel (07/28/2024 1:30 PM CDT) Sodium 140 135 - 145 mmol/L Comment:Testing performed by : [address] [address] Potassium, pl 4.0 3.3 - 4.9 mmol/L MADHAVI Comment:Testing performed by : [address] [address] Chloride 108 97 - 110 mmol/L MADHAVI Comment:Testing performed by : [address] [address] CO2 24 22 - 32 mmol/L MADHAVI Comment:Testing performed by : [address] [address] Anion gap 8 2 - 15 mmol/L MADHAVI Comment:Testing performed by : [address] [address] BUN 16 6 - 25 mg/dL MADHAVI Comment:Testing performed by : [address], [place]., [address] Creatinine 0.80 0.80 - 1.30 mg/dL MADHAVI Comment:Testing performed by : [address] [address] Glucose 146 70 - 199 mg/dL [facility] Comment: Interpretive Data Fasting glucose >/= 126 mg/dl is diagnostic for diabetes. Fasting is defined as no caloric intake for at least 8 hours. Fasting glucose between 100 mg/dl to 125 mg/dl is diagnostic of prediabetes. In a patient with classic symptoms of hyperglycemia or hyperglycemic crisis, a random glucose >/= 200 mg/dl is diagnostic for diabetes. In the absence of unequivocal hyperglycemia, results should be confirmed by repeat testing. The classification and Diagnosis of Diabetes Diabetes Care 202; 46: S19-S40. Current interpretive data was last revised 2022. Testing performed by: [address] [address] Calcium 9.2 8.5 - 10.3 mg/dL MADHAVI Comment:Testing performed by : [address] [address] Bilirubin, total 0.7 0.1 - 1.2 mg/dL [facility] Comment:Testing performed by : [address] [address] Protein, pl 7.5 6.5 - 8.5 g/dL MADHAVI Comment:Testing performed by : [address] [address] Albumin 4.2 3.5 - 5.0 g/dL MADHAVI Comment:Testing performed by : [address] [address] Alk phos 104 40 - 130 Units/L MADHAVI Comment:Testing performed by : [address] [address] ALT 34 7 - 55 Units/L MADHAVI Comment:Testing performed by : [address] [address] AST 35 10 - 50 Units/L MADHAVI Comment:Testing performed by : [address] [address] Blood 07/28/2024 1:30 PM CDT 07/28/2024 1:31 PM CDT Duke Leung DO LAB BLOOD ORDERABLES Final R esult M[facility] [address] [facility] Department [place] [address] * eGFR (06/30/2024 9:22 AM CDT) eGFR 87 >=60 mL/min/1. 73 m2 Comment: Interpretive Data Reference Interval Normal >/= 90 mL/min/1.73m2 Mildly decreased* 60 - 89 mL/min/1.73m2 Mildly to moderately decreased 45 - 59 mL/min/1.73m2 Moderately to severely decreased 30 - 44 mL/min/1.73m2 Severely decreased 15 - 29 mL/min/1.73m2 Kidney Failure < 15 mL/min/1.73m2 *Relative to young adult level Estimated glomerular filtration rate is determined by the 2020 CKD-EPI equation recommended by the National Kidney Foundation (A Unifying Approach to GFR Estimation: Recommendations of the NKF-ASK Task Force on Reassessing the Inclusion of Race in Diagnosing Kidney Disease, JASN 2020). The CKD-EPI equation should not be used for patients with unstable renal function and has not been validated in children and those over 70. Current interpretive data was last reviewed 2021. Testing performed by: [address] [address] Blood 06/30/2024 9:22 AM CDT 06/30/2024 9:24 AM CDT us Duke Leung DO LAB BLOOD ORDERABLES Final R esult M[facility]I [address] [facility] Department [place] [address] * Differential, auto (06/30/2024 9:22 AM CDT) Neutrophil abs 1.90 1.50 - 6.50 K/cumm Comment:Testing performed by : [address] [address] Imm gran abs 0.01 0.00 - 0.10 K/cumm MADHAVI Comment:Testing performed by : [address] [address] Lymphocyte abs 1.31 0.80 - 3.30 K/cumm MADHAVI Comment:Testing performed by : [address] [address] Monocyte abs 0.29 0.20 - 0.80 K/cumm MADHAVI Comment:Testing performed by : [address] [address] Eosinophil abs 0.08 0.00 - 0.50 K/cumm MADHAVI Comment:Testing performed by : [address] [address] Basophil abs 0.03 0.00 - 0.10 K/cumm MADHAVI Comment:Testing performed by : [address] [address] Neutrophil pct 52.5 % MADHAVI Comment: Interpretive Data Percent cell count reference ranges are not reported, since discordance with absolute values may lead to misinterpretation of CBC data. Current Interpretive Data was last revised on 2017. Testing performed by: [address] [address] Imm gran pct 0.3 % MADHAVI Comment: Interpretive Data Percent cell count reference ranges are not reported, since discordance with absolute values may lead to misinterpretation of CBC data. Current Interpretive Data was last revised on 2017. Testing performed by: [address] [address] Lymphocyte pct 36.2 % [facility] Comment: Interpretive Data Percent cell count reference ranges are not reported, since discordance with absolute values may lead to misinterpretation of CBC data. Current Interpretive Data was last revised on 2017. Testing performed by: [address] [address] Monocyte pct 8.0 % [facility] Comment: Interpretive Data Percent cell count reference ranges are not reported, since discordance with absolute values may lead to misinterpretation of CBC data. Current Interpretive Data was last revised on 2017. Testing performed by: [address] [address] Eosinophil pct 2.2 % [facility] Comment: Interpretive Data Percent cell count reference ranges are not reported, since discordance with absolute values may lead to misinterpretation of CBC data. Current Interpretive Data was last revised on 2017. Testing performed by: [address] [address] Basophil pct 0.8 % [facility] Comment: Interpretive Data Percent cell count reference ranges are not reported, since discordance with absolute values may lead to misinterpretation of CBC data. Current Interpretive Data was last revised on 2017. Testing performed by: [address] [address] Blood 06/30/2024 9:22 AM CDT 06/30/2024 9:24 AM CDT us Duke Leung DO LAB BLOOD ORDERABLES Final R esult [facility]I [address] [facility] Department [place] [address] * (ABNORMAL) CBC with auto differential (06/30/2024 9:22 AM CDT) WBC 3.62(L) 3.80 - 9.90 K/cumm Comment:Testing performed by : [address] [address] Hgb 10.7(L) 13.0 - 17.5 g/dL [facility] Comment:Testing performed by : [address], [address] Hct 31.9(L) 38.9 - 50.3 % [facility] Comment:Testing performed by : [address], [address] Plt 153 150 - 400 K/cumm MADHAVI Comment:Testing performed by : [address], [address] MPV 9.2 9.1 - 12.3 fL [facility] Comment:Testing performed by : [address], [address] RBC 3.07(L) 4.30 - 5.80 M/cumm MADHAVI Comment:Testing performed by : [address], [address] MCV 103.9(H) 81.3 - 96.4 fL [facility] Comment:Testing performed by : [address], [address] MCH 34.9(H) 27.1 - 33.3 pg [facility] Comment:Testing performed by : [address], [address] MCHC 33.5 32.3 - 35.7 g/dL [facility] Comment:Testing performed by : [address], [address] RDW CV 16.2(H) 11.1 - 14.9 % [facility] Comment:Testing performed by : [address], [address] RDW SD 62.1(H) 35.7 - 48.1 fL [facility] Comment:Testing performed by : [address], [address] NRBC abs 0.00 0.00 - 0.01 K/cumm MADHAVI Comment:Testing performed by : [address], [address] ANC Prelim 1.90 1.50 - 6.50 K/cumm MADHAVI Comment: Interpretive Data The rapid ANC is a preliminary automated count and may vary from the final ANC (Neut Abs) reported in the WBC differential that follows. Current interpretive data was last revised 2024. Testing performed by: [address] [address] Blood 06/30/2024 9:22 AM CDT 06/30/2024 9:24 AM CDT Duke BeardenNelson Xochitl DO LAB BLOOD ORDERABLES Final R esult Performing Organization Address [facility] [facility] de Phone Number [facility] [address] [facility] [place] [address] * (ABNORMAL) CEA (06/30/2024 9:22 AM CDT) CEA 98.3(H) <=5.0 ng/mL Comment: Interpretive Data: Reference Range: Non-Smokers: 0.0 5.0 ng/mL Smokers: 0.0 6.5 ng/mL The Oswaldo CEA assay procedure was used. Results from different manufacturers or methods may not be comparable. Serial testing should be performed using the same method. Current interpretive data was last revised 2022. Testing performed by: [address] [address] Blood 06/30/2024 9:22 AM CDT 06/30/2024 11:46 AM CDT Duke BeardenNelson Xochitl LAB BLOOD ORDERABLES Final R esult Performing Organization Address [facility] Co de Phone Number [facility] [address] [facility] [place] [address] * Comprehensive metabolic panel (06/30/2024 9:22 AM CDT) Sodium 140 135 - 145 mmol/L Comment:Testing performed by : [address] [address] Potassium, pl 4.1 3.3 - 4.9 mmol/L [facility] Comment:Testing performed by : [address], [place]., [address] Chloride 106 97 - 110 mmol/L [facility] Comment:Testing performed by : [address], [place]., [address] CO2 25 22 - 32 mmol/L [facility] Comment:Testing performed by : [address], [place]., [address] Anion gap 9 2 - 15 mmol/L [facility] Comment:Testing performed by : [address], [place]., [address] BUN 15 6 - 25 mg/dL [facility] Comment:Testing performed by : [address], [place]., [address] Creatinine 0.80 0.80 - 1.30 mg/dL [facility] Comment:Testing performed by : [address], [place]., [address] Glucose 111 70 - 199 mg/dL [facility] Comment: Interpretive Data Fasting glucose >/= 126 mg/dl is diagnostic for diabetes. Fasting is defined as no caloric intake for at least 8 hours. Fasting glucose between 100 mg/dl to 125 mg/dl is diagnostic of prediabetes. In a patient with classic symptoms of hyperglycemia or hyperglycemic crisis, a random glucose >/= 200 mg/dl is diagnostic for diabetes. In the absence of unequivocal hyperglycemia, results should be confirmed by repeat testing. The classification and Diagnosis of Diabetes Diabetes Care 202; 46: S19-S40. Current interpretive data was last revised 2022. Testing performed by: [address] [address] Calcium 9.3 8.5 - 10.3 mg/dL [facility] Comment:Testing performed by : [address] [address] Bilirubin, total 1.0 0.1 - 1.2 mg/dL [facility] Comment:Testing performed by : [address] [address] Protein, pl 7.1 6.5 - 8.5 g/dL [facility] Comment:Testing performed by : [address] [address] Albumin 4.2 3.5 - 5.0 g/dL [facility] Comment:Testing performed by : [address] [address] Alk phos 81 40 - 130 Units/L [facility] Comment:Testing performed by : [address] [address] ALT 34 7 - 55 Units/L [facility] Comment:Testing performed by : [address] [address] AST 35 10 - 50 Units/L [facility] Comment:Testing performed by : [address], [place]., [address] Blood 06/30/2024 9:22 AM CDT 06/30/2024 9:24 AM CDT Duke Leung DO LAB BLOOD ORDERABLES Final R esult [facility] [place] [address] * eGFR (06/02/2024 1:08 PM CDT) eGFR 87 >=60 mL/min/1. 73 m2 Comment: Interpretive Data Reference Interval Normal >/= 90 mL/min/1.73m2 Mildly decreased* 60 - 89 mL/min/1.73m2 Mildly to moderately decreased 45 - 59 mL/min/1.73m2 Moderately to severely decreased 30 - 44 mL/min/1.73m2 Severely decreased 15 - 29 mL/min/1.73m2 Kidney Failure < 15 mL/min/1.73m2 *Relative to young adult level Estimated glomerular filtration rate is determined by the 2020 CKD-EPI equation recommended by the National Kid[employer] (A Unifying Approach to GFR Estimation: Recommendations of the NKF-ASK Task Force on Reassessing the Inclusion of Race in Diagnosing Kidney Disease, JASN 2020). The CKD-EPI equation should not be used for patients with unstable renal function and has not been validated in children and those over 70. Current interpretive data was last reviewed 2021. Testing performed by: [address] [address] Blood 06/02/2024 1:08 PM CDT 06/02/2024 1:12 PM CDT Duke Leung DO LAB BLOOD ORDERABLES Final R esult [facility] [address] [facility] Department [place] [address] * (ABNORMAL) Differential, auto (06/02/2024 1:08 PM CDT) Neutrophil abs 0.5(L) 1.5 - 6.5 K/cumm Comment:Testing performed by : [address] [address] Imm gran abs 0.0 0.0 - 0.1 K/cumm [facility] Comment:Testing performed by : [address] [address] Lymphocyte abs 1.3 0.8 - 3.3 K/cumm [facility] Comment:Testing performed by : [address] [address] Monocyte abs 0.3 0.2 - 0.8 K/cumm [facility] Comment:Testing performed by : [address] [address] Eosinophil abs 0.0 0.0 - 0.5 K/cumm [facility] Comment:Testing performed by : [address] [address] Basophil abs 0.0 0.0 - 0.1 K/cumm [facility] Comment:Testing performed by : [address] [address] Neutrophil pct 21.4 % [facility] Comment: Interpretive Data Percent cell count reference ranges are not reported, since discordance with absolute values may lead to misinterpretation of CBC data. Current Interpretive Data was last revised on 2017. Testing performed by: [address] [address] Imm gran pct 0.5 % [facility] Comment: Interpretive Data Percent cell count reference ranges are not reported, since discordance with absolute values may lead to misinterpretation of CBC data. Current Interpretive Data was last revised on 2017. Testing performed by: [address] [address] Lymphocyte pct 60.9 % [facility] Comment: Interpretive Data Percent cell count reference ranges are not reported, since discordance with absolute values may lead to misinterpretation of CBC data. Current Interpretive Data was last revised on 2017. Testing performed by: [address] [address] Monocyte pct 15.8 % [facility] Comment: Interpretive Data Percent cell count reference ranges are not reported, since discordance with absolute values may lead to misinterpretation of CBC data. Current Interpretive Data was last revised on 2017. Testing performed by: [address] [address] Eosinophil pct 0.9 % [facility] Comment: Interpretive Data Percent cell count reference ranges are not reported, since discordance with absolute values may lead to misinterpretation of CBC data. Current Interpretive Data was last revised on 2017. Testing performed by: [address] [address] Basophil pct 0.5 % [facility] Comment: Interpretive Data Percent cell count reference ranges are not reported, since discordance with absolute values may lead to misinterpretation of CBC data. Current Interpretive Data was last revised on 2017. Testing performed by: [address] [address] Blood 06/02/2024 1:08 PM CDT 06/02/2024 1:12 PM CDT us Duke Leung DO LAB BLOOD ORDERABLES Final R esult [facility] MATOS [address] [facility] Department of Laboratories [place], [place] [id number] * (ABNORMAL) CBC with auto differential (06/02/2024 1:08 PM CDT) WBC 2.2(L) 3.8 - 9.9 K/cumm Comment:Testing performed by : [address] [address] Hgb 8.4(L) 13.0 - 17.5 g/dL [facility] Comment:Testing performed by : [address] [address] Hct 25.2(L) 38.9 - 50.3 % [facility] Comment:Testing performed by : [address], [address] Plt 143(L) 150 - 400 K/cumm [facility] Comment:Testing performed by : [address], [address] MPV 9.5 9.1 - 12.3 fL [facility] Comment:Testing performed by : [address] [address] RBC 2.37(L) 4.30 - 5.80 M/cumm [facility] Comment:Testing performed by : [address] [address] MCV 106.3(H) 81.3 - 96.4 fL [facility] Comment:Testing performed by : [address] [address] MCH 35.4(H) 27.1 - 33.3 pg [facility] Comment:Testing performed by : [address], [address] MCHC 33.3 32.3 - 35.7 g/dL [facility] Comment:Testing performed by : [address], [address] RDW CV 17.1(H) 11.1 - 14.9 % [facility] Comment:Testing performed by : [address], [address] RDW SD 64.4(H) 35.7 - 48.1 fL [facility] Comment:Testing performed by : [address] [address] NRBC abs 0.00 0.00 - 0.01 K/cumm [facility] Comment:Testing performed by : [address] [address] Blood 06/02/2024 1:08 PM CDT 06/02/2024 1:12 PM CDT Duke Leung LAB BLOOD ORDERABLES Final R esult Performing Organization Address [facility] de Phone Number [facility] [place] [address] * (ABNORMAL) CEA (06/02/2024 1:08 PM CDT) CEA 50.7(H) <=5.0 ng/mL Comment: Interpretive Data: Reference Range: Non-Smokers: 0.0 5.0 ng/mL Smokers: 0.0 6.5 ng/mL The Oswaldo CEA assay procedure was used. Results from different manufacturers or methods may not be comparable. Serial testing should be performed using the same method. Current interpretive data was last revised 2022. Testing performed by: [address] [address] Blood 06/02/2024 1:08 PM CDT 06/02/2024 1:36 PM CDT Duke Leung LAB BLOOD ORDERABLES Final R esult Performing Organization Address City/[facility] Co de Phone Number [id number] [place] [address] * Comprehensive metabolic panel (06/02/2024 1:08 PM CDT) Sodium 140 135 - 145 mmol/L Comment:Testing performed by : [address] [address] Potassium, pl 3.8 3.3 - 4.9 mmol/L [facility] MATOS Comment:Testing performed by : [address] [address] Chloride 108 97 - 110 mmol/L [facility] MATOS Comment:Testing performed by : [address] [address] CO2 24 22 - 32 mmol/L [facility] Comment:Testing performed by : [address] [address] Anion gap 8 2 - 15 mmol/L [facility] Comment:Testing performed by : [address] [address] BUN 16 6 - 25 mg/dL [facility] Comment:Testing performed by : [address] [address] Creatinine 0.80 0.80 - 1.30 mg/dL [facility] Comment:Testing performed by : [address] [address] Glucose 111 70 - 199 mg/dL [facility] Comment: Interpretive Data Fasting glucose >/= 126 mg/dl is diagnostic for diabetes. Fasting is defined as no caloric intake for at least 8 hours. Fasting glucose between 100 mg/dl to 125 mg/dl is diagnostic of prediabetes. In a patient with classic symptoms of hyperglycemia or hyperglycemic crisis, a random glucose >/= 200 mg/dl is diagnostic for diabetes. In the absence of unequivocal hyperglycemia, results should be confirmed by repeat testing. The classification and Diagnosis of Diabetes Diabetes Care 202; 46: S19-S40. Current interpretive data was last revised 2022. Testing performed by: [address] [address] Calcium 8.8 8.5 - 10.3 mg/dL [facility] Comment:Testing performed by : [address] [address] Bilirubin, total 0.6 0.1 - 1.2 mg/dL [facility] Comment:Testing performed by : [address] [address] Protein, pl 7.1 6.5 - 8.5 g/dL [facility] Comment:Testing performed by : [address] [address] Albumin 4.0 3.5 - 5.0 g/dL [facility] Comment:Testing performed by : [address] [address] Alk phos 86 40 - 130 Units/L [facility] MATOS Comment:Testing performed by : [address] [address] ALT 27 7 - 55 Units/L [facility] MATOS Comment:Testing performed by : [facility], [address] [place] [address]., [address] AST 33 10 - 50 Units/L [facility] MATOS Comment:Testing performed by : [address] [address] Blood 06/02/2024 1:08 PM CDT 06/02/2024 1:12 PM CDT us Duke Leung DO LAB BLOOD ORDERABLES Final R esult [facility] [address] [facility] [place] [address] from Last 3 Months Insurance MEDICARE [facility] MEDICARE SUPPLEMENT MEDICARE [employer] MEDICARE SUPPLEMENT [facility] MEDIC[facility] Advance Directives For more information, please contact: [phone] * Full Code (Latest Code Status on File) Date Activated Date Inactivated Comments 07/15/2023 10:51 AM 07/16/2023 5:19 AM 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
--- OUTSIDE RECORDS SUMMARY | 2024-08-22 20:31 | XMS_ITS | Referral Summary ---
Author Organization [facility] Address [address] [place] [phone] Care Team Providers Care French Professor Name Role Phone Duke Leung DO Unavailable [phone] Julian Quevedo MD Primary Care Provider Encounters Date Type Department Care Team Description 08/09/2024 Orders Only [facility] [address] [place] [address] [address] [place] [phone] Doris Alejo, RN Malignant neoplasm of ascending colon (HCC) (Primary Dx) 08/05/2024 Orders Only [facility] [address] [place] [address] [address] [place] [phone] Duke Leung DO 07/28/2024 2:00 PM CDT Office Visit [facility] [address] [place] [address] [address] [place] [phone] Duke Leung DO Malignant neoplasm of ascending colon (HCC) (Primary Dx) 07/28/2024 1:30 PM CDT Lab [facility] at [address] [address] Malignant neoplasm of ascending colon (HCC); Antineoplastic chemotherapy induced anemia 07/08/2024 Orders Only [facility] [address] [place] [address] [address] [place] [phone] Duke Leung DO 07/08/2024 Documentation [facility] [address] [place] [address] [address] [place] [phone] Duke Leung, DO 06/30/2024 Results Follow-Up [facility] [address] [place] [address] [address] [place] [phone] Bianka Garcia RN Comprehensive metabolic panel, CEA, CBC with auto differential, Additional followed-up results: 2 06/30/2024 9:30 AM CDT Lab [address] [address] Malignant neoplasm of ascending colon (HCC); Antineoplastic chemotherapy induced anemia 06/30/2024 8:00 AM CDT Office Visit [facility] [address] [place] [phone] Yosi Berrios MD 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) 06/26/2024 Orders Only [facility] [address] [place] [phone] Duke Leung, DO 06/02/2024 Results Follow-Up [facility] [address] [place] [phone] Bianka Garcia RN Comprehensive metabolic panel, CEA, CBC with auto differential, Additional followed-up results: 2 06/02/2024 1:15 PM CDT Lab [address] [address] Malignant neoplasm of ascending colon (HCC) 06/02/2024 Telephone [facility] [address] [place] [phone] Kelle Thapa, BRIM STIFFENER 06/02/2024 12:45 PM CDT Infusion [address] [phone] Malignant neoplasm of ascending colon (HCC) (Primary Dx); Antineoplastic chemotherapy induced anemia 06/01/2024 Telephone [facility] [address] [place] [address] [address] [place] [phone] Duke Leung, DO 05/31/2024 Orders Only [facility] [address] [place] [address] [address] [place] [phone] Duke Leung, DO 05/30/2024 Orders Only [facility] [address] [place] [address] [address] [place] [phone] Duke Leung, DO 05/27/2024 Orders Only [facility] [address] [place] [address] [address] [place] [phone] Duke Leung, 05/26/2024 3:00 PM [employer]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 Office Visit [facility] [address] [place] [address] [address] [place] [phone] Duke Leung, DO Malignant neoplasm of ascending colon (HCC) (Primary Dx); Antineoplastic chemotherapy induced anemia from Last 3 Months Allergies No known active allergies Medications dutasteride [...] unspecified 01/06/2023 Coronary artery disease invo lving hoonah coronary artery of hoonah heart without angina pectoris 08/12/2022 Malignant neoplasm of ascending colon 07/04/2022 Cancer Staging:Clinical stage from 07/04/2022:Stage IIIB(cT3, cN1c, cM0) - Signed by Duke Leung DO on 07/04/2022 Immunizations Immunization Administration Dates Next Due Influenza, Quadrivalent, Hig h Dose, Preservative Free, Intrr 12/28/2021 Social History Tobacco Use Types Packs/Day Years Used Date Smoking Tobacco: Former Cigarettes 0.5 4 1 976 - 1980 Smokeless Tobacco: Never Tobacco Cessation:Counseling Given: Not [...] on file 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 Testing performed by: [address] [address] Blood 07/28/2024 1:30 PM CDT 07/28/2024 1:31 PM CDT Duke Leung DO LAB BLOOD ORDERABLES Final R esult [facility] Department of Laboratories [place], [place] [phone] * Differential, auto (07/28/2024 1:30 PM CDT) Neutrophil abs 1.88 1.50 - 6.50 K/cumm Comment:Testing performed by : [address] [address] Imm gran abs 0.02 0.00 - 0.10 K/cumm [facility] Comment:Testing performed by : [address] [address] Lymphocyte abs 2.26 0.80 - 3.30 K/cumm [facility] Comment:Testing performed by : [address] [address] Monocyte abs 0.46 0.20 - 0.80 K/cumm [facility] Comment:Testing performed by : [address] [address] Eosinophil abs 0.02 0.00 - 0.50 K/cumm [facility] Comment:Testing performed by : [address] [address] Basophil abs 0.03 0.00 - 0.10 K/cumm [facility] Comment:Testing performed by : [address] [address] Neutrophil pct 40.3 % [facility] Comment: Interpretive Data Percent cell count reference ranges are not reported, since discordance with absolute values may lead to misinterpretation of CBC data. Current Interpretive Data was last revised on 2017. Testing performed by: [address] [address] Imm gran pct 0.4 % [facility] Comment: Interpretive Data Percent cell count reference ranges are not reported, since discordance with absolute values may lead to misinterpretation of CBC data. Current Interpretive Data was last revised on 2017. Testing performed by: [address] [address] Lymphocyte pct 48.4 % [facility] Comment: Interpretive Data Percent cell count reference ranges are not reported, since discordance with absolute values may lead to misinterpretation of CBC data. Current Interpretive Data was last revised on 2017. Testing performed by: [address] [address] Monocyte pct 9.9 % [facility] Comment: Interpretive Data Percent cell count reference ranges are not reported, since discordance with absolute values may lead to misinterpretation of CBC data. Current Interpretive Data was last revised on 2017. Testing performed by: [address] [address] Eosinophil pct 0.4 % [facility] Comment: Interpretive Data Percent cell count reference ranges are not reported, since discordance with absolute values may lead to misinterpretation of CBC data. Current Interpretive Data was last revised on 2017. Testing performed by: [address] [address] Basophil pct 0.6 % [facility] Comment: Interpretive Data Percent cell count reference ranges are not reported, since discordance with absolute values may lead to misinterpretation of CBC data. Current Interpretive Data was last revised on 2017. Testing performed by: [address] [address] Blood 07/28/2024 1:30 PM CDT 07/28/2024 1:31 PM CDT Duke Leung DO LAB BLOOD ORDERABLES Final R esult [facility] [address] [facility] Department [place] [address] * (ABNORMAL) CBC with auto differential (07/28/2024 1:30 PM CDT) WBC 4.67 3.80 - 9.90 K/cumm Comment:Testing performed by : [address] [address] Hgb 12.0(L) 13.0 - 17.5 g/dL [facility] Comment:Testing performed by : [address] [address] Hct 34.9(L) 38.9 - 50.3 % [facility] Comment:Testing performed by : [address] [address] Plt 129(L) 150 - 400 K/cumm [facility] Comment:Testing performed by : [address] [address] MPV 9.1 9.1 - 12.3 fL [facility] Comment:Testing performed by : [address] [address] RBC 3.44(L) 4.30 - 5.80 M/cumm [facility] Comment:Testing performed by : [address] [address] MCV 101.5(H) 81.3 - 96.4 fL [facility] Comment:Testing performed by : [address] [address] MCH 34.9(H) 27.1 - 33.3 pg [facility] MATOS Comment:Testing performed by : [address] [address] MCHC 34.4 32.3 - 35.7 g/dL [facility] Comment:Testing performed by : [address] [address] RDW CV 15.0(H) 11.1 - 14.9 % [facility] Comment:Testing performed by : [address] [address] RDW SD 56.1(H) 35.7 - 48.1 fL [facility] Comment:Testing performed by : [address] [address] NRBC abs 0.00 0.00 - 0.01 K/cumm [facility] Comment:Testing performed by : [address] [address] ANC Prelim 1.88 1.50 - 6.50 K/cumm [facility] Comment: Interpretive Data The rapid ANC is a preliminary automated count and may vary from the final ANC (Neut Abs) reported in the WBC differential that follows. Current interpretive data was last revised 2024. Testing performed by: [address] [address] Blood 07/28/2024 1:30 PM CDT 07/28/2024 1:31 PM CDT Duke Leung DO LAB BLOOD ORDERABLES Final R esult [facility] [address] [facility] Department [place] [address] * (ABNORMAL) CEA (07/28/2024 1:30 PM CDT) CEA 70.4(H) <=5.0 ng/mL Comment: Interpretive Data: Reference Range: Non-Smokers: 0.0 5.0 ng/mL Smokers: 0.0 6.5 ng/mL The Oswaldo CEA assay procedure was used. Results from different manufacturers or methods may not be comparable. Serial testing should be performed using the same method. Current interpretive data was last revised 2022. Testing performed by: [address] [address] Blood 07/28/2024 1:30 PM CDT 07/28/2024 3:59 PM CDT us Duke Leung DO LAB BLOOD ORDERABLES Final R esult [facility] [address] [facility] Department of Laboratories [place], [place] [id number] * Comprehensive metabolic panel (07/28/2024 1:30 PM CDT) Sodium 140 135 - 145 mmol/L Comment:Testing performed by : [address] [address] Potassium, pl 4.0 3.3 - 4.9 mmol/L [facility] Comment:Testing performed by : [address] [address] Chloride 108 97 - 110 mmol/L [facility] Comment:Testing performed by : [address] [address] CO2 24 22 - 32 mmol/L [facility] Comment:Testing performed by : [address] [address] Anion gap 8 2 - 15 mmol/L [facility] Comment:Testing performed by : [address] [address] BUN 16 6 - 25 mg/dL [facility] Comment:Testing performed by : [address] [address] Creatinine 0.80 0.80 - 1.30 mg/dL [facility] Comment:Testing performed by : [address] [address] Glucose 146 70 - 199 mg/dL [facility] Comment: Interpretive [...] classification and Diagnosis of Diabetes Diabetes Care 2021; 46: S19-S40. Current interpretive data was last revised 2022. Testing performed by: [address] [address] Calcium 9.2 8.5 - 10.3 mg/dL [facility] Comment:Testing performed by : [address] [address] Bilirubin, total 0.7 0.1 - 1.2 mg/dL [facility] Comment:Testing performed by : [address] [address] Protein, pl 7.5 6.5 - 8.5 g/dL [facility] Comment:Testing performed by : [address] [address] Albumin 4.2 3.5 - 5.0 g/dL [facility] Comment:Testing performed by : [address] [address] Alk phos 104 40 - 130 Units/L [facility] Comment:Testing performed by : [address] [address] ALT 34 7 - 55 Units/L [facility] Comment:Testing performed by : [address] [address] AST 35 10 - 50 Units/L [facility] Comment:Testing performed by : [address] [address] Blood 07/28/2024 1:30 PM CDT 07/28/2024 1:31 PM CDT Duke eLung DO LAB BLOOD ORDERABLES Final R esult [facility] [address] [facility] Department of Laboratories [place], [place] [phone] * eGFR (06/30/2024 9:22 AM CDT) eGFR [...] was last reviewed 2021. Testing performed by: [address] [address] Blood 06/30/2024 9:22 AM CDT 06/30/2024 9:24 AM CDT Duke Leung DO LAB BLOOD ORDERABLES Final R esult [facility] Department [place] [address] * Differential, auto (06/30/2024 9:22 AM CDT) Neutrophil abs 1.90 1.50 - 6.50 K/cumm Comment:Testing performed by : [address] [address] Imm gran abs 0.01 0.00 - 0.10 K/cumm [facility] Comment:Testing performed by : [address] [address] Lymphocyte abs 1.31 0.80 - 3.30 K/cumm [facility] Comment:Testing performed by : [address] [address] Monocyte abs 0.29 0.20 - 0.80 K/cumm [facility] Comment:Testing performed by : [address] [address] Eosinophil abs 0.08 0.00 - 0.50 K/cumm [facility] Comment:Testing performed by : [address] [address] Basophil abs 0.03 0.00 - 0.10 K/cumm [facility] Comment:Testing performed by : [address] [address] Neutrophil pct 52.5 % [facility] Comment: Interpretive Data Percent cell count reference ranges are not reported, since discordance with absolute values may lead to misinterpretation of CBC data. Current Interpretive Data was last revised on 2017. Testing performed by: [address] [address] Imm gran pct 0.3 % [facility] Comment: Interpretive Data Percent cell count reference ranges are not reported, since discordance with absolute values may lead to misinterpretation of CBC data. Current Interpretive Data was last revised on 2017. Testing performed by: [address] [address] Lymphocyte pct 36.2 % [facility] Comment: Interpretive Data Percent cell count reference ranges are not reported, since discordance with absolute values may lead to misinterpretation of CBC data. Current Interpretive Data was last revised on 2017. Testing performed by: [address] [address] Monocyte pct 8.0 % [facility] Comment: Interpretive Data Percent cell count reference ranges are not reported, since discordance with absolute values may lead to misinterpretation of CBC data. Current Interpretive Data was last revised on 2017. Testing performed by: [address] [address] Eosinophil pct 2.2 % [facility] Comment: Interpretive Data Percent cell count reference ranges are not reported, since discordance with absolute values may lead to misinterpretation of CBC data. Current Interpretive Data was last revised on 2017. Testing performed by: [address] [address] Basophil pct 0.8 % [facility] Comment: Interpretive Data Percent cell count reference ranges are not reported, since discordance with absolute values may lead to misinterpretation of CBC data. Current Interpretive Data was last revised on 2017. Testing performed by: [address] [address] Blood 06/30/2024 9:22 AM CDT 06/30/2024 9:24 AM CDT Duke Leung DO LAB BLOOD ORDERABLES Final R esult [facility] [address] [facility] Department of Laboratories [place], [place] [id number] * (ABNORMAL) CBC with auto differential (06/30/2024 9:22 AM CDT) [facility] WBC 3.62(L) 3.80 - 9.90 K/cumm Comment:Testing performed by : [address], [address] Hgb 10.7(L) 13.0 - 17.5 g/dL [facility] Comment:Testing performed by : [address], [address] Hct 31.9(L) 38.9 - 50.3 % [facility] Comment:Testing performed by : [address] [address] Plt 153 150 - 400 K/cumm [facility] Comment:Testing performed by : [address], [address] MPV 9.2 9.1 - 12.3 fL [facility] Comment:Testing performed by : [address], [address] RBC 3.07(L) 4.30 - 5.80 M/cumm [facility] Comment:Testing performed by : [address], [address] MCV 103.9(H) 81.3 - 96.4 fL [facility] Comment:Testing performed by : [address], [address] MCH 34.9(H) 27.1 - 33.3 pg [facility] MATOS Comment:Testing performed by : [address], [address] MCHC 33.5 32.3 - 35.7 g/dL [facility]OS Comment:Testing performed by : [address] [address] RDW CV 16.2(H) 11.1 - 14.9 % [facility] Comment:Testing performed by : [address] [address] RDW SD 62.1(H) 35.7 - 48.1 fL [facility] Comment:Testing performed by : [address] [address] NRBC abs 0.00 0.00 - 0.01 K/cumm [facility] Comment:Testing performed by : [address] [address] ANC Prelim 1.90 1.50 - 6.50 K/cumm [facility] Comment: Interpretive Data The rapid ANC is a preliminary automated count and may vary from the final ANC (Neut Abs) reported in the WBC differential that follows. Current interpretive data was last revised 2024. Testing performed by: [address] [address] Blood 06/30/2024 9:22 AM CDT 06/30/2024 9:24 AM CDT Duke Leung DO LAB BLOOD ORDERABLES Final R esult [facility] [address] [facility] Department of Laboratories [place], [place] [id number] * (ABNORMAL) CEA (06/30/2024 9:22 AM CDT) Pathologist [facility] CEA 98.3(H) <=5.0 ng/mL Comment: Interpretive Data: Reference Range: Non-Smokers: 0.0 5.0 ng/mL Smokers: 0.0 6.5 ng/mL The Oswaldo CEA assay procedure was used. Results from different manufacturers or methods may not be comparable. Serial testing should be performed using the same method. Current interpretive data was last revised 2022. Testing performed by: [address] [address] Blood 06/30/2024 9:22 AM CDT 06/30/2024 11:46 AM CDT us Duke Leung DO LAB BLOOD ORDERABLES Final R esult [facility] [address] [facility] Department [place] [address] * Comprehensive metabolic panel (06/30/2024 9:22 AM CDT) Sodium 140 135 - 145 mmol/L Comment:Testing performed by : [address] [address] Potassium, pl 4.1 3.3 - 4.9 mmol/L [facility] Comment:Testing performed by : [address] [address] Chloride 106 97 - 110 mmol/L [facility] Comment:Testing performed by : [address] [address] CO2 25 22 - 32 mmol/L [facility] Comment:Testing performed by : [address] [address] Anion gap 9 2 - 15 mmol/L [facility] Comment:Testing performed by : [address] [address] BUN 15 6 - 25 mg/dL [facility] Comment:Testing performed by : [address] [address] Creatinine 0.80 0.80 - 1.30 mg/dL [facility] Comment:Testing performed by : [address] [address] Glucose 111 70 - 199 mg/dL [facility] [...] was last revised 2022. Testing performed by: [address] [address] Calcium 9.3 8.5 - 10.3 mg/dL [facility] Comment:Testing performed by : [address] [address] Bilirubin, total 1.0 0.1 - 1.2 mg/dL [facility] Comment:Testing performed by : [address] [address] Protein, pl 7.1 6.5 - 8.5 g/dL [facility] Comment:Testing performed by : [address] [address] Albumin 4.2 3.5 - 5.0 g/dL [facility] Comment:Testing performed by : [address] [address] Alk phos 81 40 - 130 Units/L [facility] Comment:Testing performed by : [address] [address] ALT 34 7 - 55 Units/L [facility] Comment:Testing performed by : [address] [address] AST 35 10 - 50 Units/L [facility] Comment:Testing performed by : [address] [address] Blood 06/30/2024 9:22 AM CDT 06/30/2024 9:24 AM CDT us Duke Leung DO LAB BLOOD ORDERABLES Final R esult [facility] [address] [facility] Department [place] [address] * eGFR (06/02/2024 1:08 PM CDT) eGFR [...] was last reviewed 2021. Testing performed by: [address] [address] Blood 06/02/2024 1:08 PM CDT 06/02/2024 1:12 PM CDT Duke Leung DO LAB BLOOD ORDERABLES Final R esult [facility] [address] [facility] Department [place] [address] * (ABNORMAL) Differential, auto (06/02/2024 1:08 PM CDT) Neutrophil abs 0.5(L) 1.5 - 6.5 K/cumm Comment:Testing performed by : [address] [address] Imm gran abs 0.0 0.0 - 0.1 K/cumm [facility] Comment:Testing performed by : [address] [address] Lymphocyte abs 1.3 0.8 - 3.3 K/cumm [facility] Comment:Testing performed by : [address] [address] Monocyte abs 0.3 0.2 - 0.8 K/cumm [facility] Comment:Testing performed by : [address] [address] Eosinophil abs 0.0 0.0 - 0.5 K/cumm [facility] Comment:Testing performed by : [address] [address] Basophil abs 0.0 0.0 - 0.1 K/cumm [facility] Comment:Testing performed by : [address] [address] Neutrophil pct 21.4 % [facility] Comment: Interpretive Data Percent cell count reference ranges are not reported, since discordance with absolute values may lead to misinterpretation of CBC data. Current Interpretive Data was last revised on 2017. Testing performed by: [address] [address] Imm gran pct 0.5 % [facility] Comment: Interpretive Data Percent cell count reference ranges are not reported, since discordance with absolute values may lead to misinterpretation of CBC data. Current Interpretive Data was last revised on 2017. Testing performed by: [address] [address] Lymphocyte pct 60.9 % [facility] Comment: Interpretive Data Percent cell count reference ranges are not reported, since discordance with absolute values may lead to misinterpretation of CBC data. Current Interpretive Data was last revised on 2017. Testing performed by: [address] [address] Monocyte pct 15.8 % [facility] Comment: Interpretive Data Percent cell count reference ranges are not reported, since discordance with absolute values may lead to misinterpretation of CBC data. Current Interpretive Data was last revised on 2017. Testing performed by: [address] [address] Eosinophil pct 0.9 % [facility] Comment: Interpretive Data Percent cell count reference ranges are not reported, since discordance with absolute values may lead to misinterpretation of CBC data. Current Interpretive Data was last revised on 2017. Testing performed by: [address] [address] Basophil pct 0.5 % [facility] Comment: Interpretive Data Percent cell count reference ranges are not reported, since discordance with absolute values may lead to misinterpretation of CBC data. Current Interpretive Data was last revised on 2017. Testing performed by: [address] [address] Blood 06/02/2024 1:08 PM CDT 06/02/2024 1:12 PM CDT Duke Leung DO LAB BLOOD ORDERABLES Final R esult [facility] [address] [facility] Department [place] [address] * (ABNORMAL) CBC with auto differential (06/02/2024 1:08 PM CDT) WBC 2.2(L) 3.8 - 9.9 K/cumm Comment:Testing performed by : [address] [address] Hgb 8.4(L) 13.0 - 17.5 g/dL [facility] Comment:Testing performed by : [address] [address] Hct 25.2(L) 38.9 - 50.3 % [facility] Comment:Testing performed by : [address] [address] Plt 143(L) 150 - 400 K/cumm [facility] Comment:Testing performed by : [address] [address] MPV 9.5 9.1 - 12.3 fL [facility] Comment:Testing performed by : [address] [address] RBC 2.37(L) 4.30 - 5.80 M/cumm [facility] Comment:Testing performed by : [address] [address] MCV 106.3(H) 81.3 - 96.4 fL [facility] Comment:Testing performed by : [address] [address] MCH 35.4(H) 27.1 - 33.3 pg [facility] MATOS Comment:Testing performed by : [address] [address] MCHC 33.3 32.3 - 35.7 g/dL [facility] Comment:Testing performed by : [address] [address] RDW CV 17.1(H) 11.1 - 14.9 % [facility] Comment:Testing performed by : [address] [address] RDW SD 64.4(H) 35.7 - 48.1 fL [facility] Comment:Testing performed by : [address] [address] NRBC abs 0.00 0.00 - 0.01 K/cumm [facility] Comment:Testing performed by : [address] [address] Blood 06/02/2024 1:08 PM CDT 06/02/2024 1:12 PM CDT Duke Leung [facility] LAB BLOOD ORDERABLES Final R esult [facility] Department of Laboratories [place], [place] [id number] * (ABNORMAL) CEA (06/02/2024 1:08 PM CDT) CEA 50.7(H) <=5.0 ng/mL Comment: Interpretive Data: Reference Range: Non-Smokers: 0.0 5.0 ng/mL Smokers: 0.0 6.5 ng/mL The Oswaldo CEA assay procedure was used. Results from different manufacturers or methods may not be comparable. Serial testing should be performed using the same method. Current interpretive data was last revised 2022. Testing performed by: [address] [address] Blood 06/02/2024 1:08 PM CDT 06/02/2024 1:36 PM CDT Duke Leung DO LAB BLOOD ORDERABLES Final R esult [facility] [address] [facility] Department [place] [address] * Comprehensive metabolic panel (06/02/2024 1:08 PM CDT) Sodium 140 135 - 145 mmol/L Comment:Testing performed by : [address] [address] Potassium, pl 3.8 3.3 - 4.9 mmol/L [facility] Comment:Testing performed by : [address] [address] Chloride 108 97 - 110 mmol/L MADHAVI Comment:Testing performed by : [address] [address] CO2 24 22 - 32 mmol/L MADHAVI Comment:Testing performed by : [address] [address] Anion gap 8 2 - 15 mmol/L MADHAVI Comment:Testing performed by : [address] [address] BUN 16 6 - 25 mg/dL MADHAVI Comment:Testing performed by : [address] [address] Creatinine 0.80 0.80 - 1.30 mg/dL MADHAVI Comment:Testing performed by : [address] [address] Glucose 111 70 - 199 mg/dL MADHAVI [...] classification and Diagnosis of Diabetes Diabetes Care 2021; 46: S19-S40. Current interpretive data was last revised 2022. Testing performed by: [address] [address] Calcium 8.8 8.5 - 10.3 mg/dL MADHAVI Comment:Testing performed by : [address] [address] Bilirubin, total 0.6 0.1 - 1.2 mg/dL MADHAVI Comment:Testing performed by : [address] [address] Protein, pl 7.1 6.5 - 8.5 g/dL MADHAVI Comment:Testing performed by : [address] [address] Albumin 4.0 3.5 - 5.0 g/dL MADHAVI Comment:Testing performed by : [address] [address] Alk phos 86 40 - 130 Units/L MADHAVI Comment:Testing performed by : [address] [address] ALT 27 7 - 55 Units/L MADHAVI Comment:Testing performed by : [address] [address] AST 33 10 - 50 Units/L MADHAVI Comment:Testing performed by : [address] [address] Blood 06/02/2024 1:08 PM CDT 06/02/2024 1:12 PM CDT Duke Leung DO LAB BLOOD ORDERABLES Final R esult Performing Organization Address City/State/[facility] Co de Phone Number MADHAVI [address] [facility] Department [place] [address] from Last 3 Months Insurance MEDICARE [facility] MEDICARE SUPPLEMENT MEDICARE BLUE CROSS MEDICARE SUPPLEMENT [facility] MEDICARE Advance Directives For more information, please contact: [phone] * Full Code (Latest Code Status on File) Date Activated Date Inactivated Comments 07/15/2023 10:51 AM 07/16/2023 5:19 AM Care Teams French Professor Relationship Specialty Start Date End Date Julian Quevedo MD [address] [place] [address] PCP - General Family Medicine 06/30/24 Duke Leung DO [address] [facility], [address] [place] [address] Medical Oncologist/Reference And Instruction Librarian Hematology and Oncology 01/27/23
--- NOTE | 2024-08-22 21:00 | ECG_ITS ---
Test Date: 2024-08-22 21:02:40 Measurements Intervals [place] Rate: 98 P: 217 WI: 114 QRS: -24 QRSD: 95 T: 14 QT: 349 QTc: 446 Interpretive Statements SINUS RHYTHM BORDERLINE ST -T WAVE ABNORMALITY- ANT/INF LEADS BORDERLINE ECG No previous ECG available for comparison Electronically Signed On 08-23-2024 06:13:05 CDT by Rachid Stevenson D.O.
--- NOTE | 2024-08-22 21:06 | ED.GENADULT ---
HPI - General Adult General Chief complaint: Unspecified Stated complaint: Chemo pt-chills/shaking Time Seen by Provider: 08/22/24 20:54 Source: patient and family (son) Limitations: language barrier History of Present Illness HPI narrative: Patient with history colon cancer presents with hypotension, fevers, chills, and shaking. Currently on a PO chemo regimen (Fruquintinib) which he takes 21 days on , 7 days off. He finished his 21 days but has actually been off for 9-10 days as he experienced cramping while on this medication so was awaiting appointment with his oncologist, Dr Leung, [facility]/Jody/[place], rather than restarting on August 18. Patient had otherwise been doing well but acutely started experiencing symptoms approximately 18:30. Checks his BP at home qAM and qPM due to medication side effect (had had some SBPs of 160-170). Yesterday had a SBP 96mmHg, today 110mmHg. PO intake has been normal, ate around 6:30pm. Experiencing myalgias and generalized body pains, no trauma. IN particular his shoulders hurt, particularly the left. S/p colon resection and cholecystectomy here at [facility]. Lives with his . No sick contacts. LBM was before arrival. Has been a bit constipated, no diarrhea. No cough. No vomiting. No shortness of breath or chest pain or abdominal pain. Related Data Home Medications ?Medication ?Instructions ?Recorded ?Confirmed ?Last Taken ?Type clopidogrel 75 mg tablet 75 mg PO DAILY 01/20/23 08/23/24 08/22/24 History rosuvastatin 20 mg tablet 20 mg PO DAILY 01/20/23 08/23/24 08/22/24 History metoprolol succinate 50 mg 50 mg PO DAILY 02/06/23 08/23/24 08/22/24 History tablet,extended release 24 hr fruquintinib 5 mg capsule 5 mg PO .COMPLEX Chemotherapy 08/23/24 08/23/24 08/10/24 History (Fruzaqla) Allergies Allergy/AdvReac Type Severity Reaction Status Date / Time No Known Allergies Allergy Unknown Verified 08/22/24 20:30 [facility] Past Medical History Medical History Idiopathic stricture of urethra Coronary artery disease Aneurysm of infrarenal abdominal aorta Diverticulitis Colon cancer 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 Leung. Cholelithiasis Bilateral inguinal hernia Achilles tendon tear Surgical History Surgical History Hx laparoscopic cholecystectomy 02/09/23 Status post dilation of urethral narrowing 11/03/23 History of cardiac catheterization 07/2022 with findings of coronary artery disease with recommendation of medical therapy due to high risk for PCI, on dual anti-platelet therapy History of lithotripsy (04/15/19) History of partial colectomy (04/09/09) Laparoscopic sigmoid colectomy for sigmoid adenocarcinoma. History of colonoscopy with polypectomy History of bilateral inguinal hernia repair (05/30/16) History of Achilles tendon repair (11/29/14) Right. History of colon resection (04/23/22) Hand assisted laparoscopic right hemicolectomy with ileocolic anastomosis, small bowel resection with side to side anastomosis, and extensive adhesiolysis. Family History Family History Sibling Throat cancer Other Family history non-contributory Social History Social History Social History: Patient smoked 1/2ppd x 20yrs but quit 45yrs ago. Hx of heavy alcohol use when he was young but no alcohol currently. No hx of drug use including IVDU. Lives at home with his . No pets. Surrogate medical decision maker: Theodore Bryant (son). Code status: Full code. Smoking packs per day: 0.5 Smoking cigarettes per day: 10.0 Years smoked: 20 Smoking pack-years: 10.00 Smoking status: Former smoker Tobacco type: cigarettes Second hand tobacco smoke exposure: No Smoking end date: 03/23/79 Additional smoking assessment comments: SON STATES PT STOPPED SMOKING ABOUT 45YRS AGO Alcohol intake: current Drinks per week: 1 Alcohol use details: RARELY - FEW TIMES A YEAR Substance use: never Substance use type: does not use Do You Feel Safe in your Home?: Yes Lack of Transportation: No Lack of Food: Never True Current Housing: I Have Housing Concerned About Future Housing: Decline to Answer Difficulty Paying Gas/Electric Bills: Decline to Answer Difficulty Paying for Meds: Decline to Answer Currently Unemployed: Decline to Answer Education: High School Diploma/GED Difficulty w/ Childcare or Family Care: Decline to Answer Living arrangements: with family Additional living arrangements comments: Occupation/Education: retired 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 Spiritual care concerns: No Exam Narrative: GENERAL: well-nourished, and in no acute distress. HEAD: Normocephalic, atraumatic. EYES: Non injected, non icteric ENT: Nares clear, no rhinorrhea or epistaxis. Gross auditory acuity intact. NECK: Supple. No meningismus. CHEST: Speaking in full sentences. No respiratory distress. HEART: Tachycardic rate and rhythm. . ABDOMEN: Soft, nondistended. No rigidity or guarding. Not peritoneal EXTREMITIES: Normal range of motion. No lower extremity edema. SKIN: Warm, dry. Erythema and warmth along inner gluteal clefts though without appreciable abscess/induration/firmness NEURO: No focal deficits. Alert and oriented. Answering questions. Following commands. Normal speech without aphasia or dysarthria. PSYCH: Normal mood and affect. Course Vital Signs Vital signs: Vital Signs Temperature 98.1 F 08/22/24 20:42 Pulse Rate 109 H 08/22/24 20:42 Respiratory Rate 17 08/22/24 20:42 Blood Pressure 76/43 L 08/22/24 20:42 Pulse Oximetry 99 08/22/24 20:42 Oxygen Delivery Room Air 08/22/24 20:42 Temperature 98.3 F 08/26/24 07:57 Pulse Rate 66 08/26/24 10:00 Respiratory Rate 16 08/26/24 07:57 Blood Pressure 124/68 08/26/24 07:57 Pulse Oximetry 97 08/26/24 07:57 Oxygen Delivery Room Air 08/26/24 03:37 Fraction of Inspired Oxygen 21 08/25/24 20:38 Medical Decision Making MDM Narrative Medical decision making narrative: Patient with Hx colon cancer s/p partial colonic resection and currently on PO chemo regimen presents with acute onset fevers, chills, myalgias; what sounds like rigors at home. In the emergency department he is initially afebrile with vital signs notable for tachycardia and hypotension. Repeat temperature does show a fever of 101.4 F. Acetaminophen and IV fluids ordered as is initial sepsis bundle including 30cc/kg IV fluids (2L). ANC approximately 700. [facility] Risk Index for Febrile Neutropenic Fever 16?points High risk for poor outcome. Admit for empiric antibiotics if not already inpatient. == Chemo precautions and broad-spectrum antibiotics in the form a vancomycin (because hypotensive) and cefepime (2g) ordered. He has a macrocytic anemia, stable previous. Also mild thrombocytopenia. Lactic acidosis. CRP elevated. 3rd L fluid bolus ordered. CT concerning for possible abscess. Updated patient's son. Requesting Amharic interpretive services be used to explain the nuances. [employer] #[id number]. Confirmed full code status and verbal consent for vasopressors which are started peripherally due to mean arterial pressures remaining 60s-70s. Multiple attempts to determine if IR capabilities today. Dr Arvizu did confirm Dr Cadet is scheduled for 8 or 8:30 this morning. US guided study is ordered. Patient responds well on 5 of Levophed, several SBPs in the 120s, but not sustained when downtitrated. Patient may require PICC versus central line but not emergently at this time. Discussed with power plant operations manager hand salter and power plant operations manager hospitalist Obdulia PARIKH. Will go to the ICU given vasopressors. Differential Diagnosis Differential Diagnosis: Infection (urinary tract infection, acute viral syndrome, pneumonia, intra-abdominal); neutropenic fever; chemo side effect; Vital Signs Vital Signs: Vital Signs Temperature 98.1 F 08/22/24 20:42 Pulse Rate 109 H 08/22/24 20:42 Respiratory Rate 17 08/22/24 20:42 Blood Pressure 76/43 L 08/22/24 20:42 Pulse Oximetry 99 08/22/24 20:42 Oxygen Delivery Room Air 08/22/24 20:42 Temperature 98.3 F 08/26/24 07:57 Pulse Rate 66 08/26/24 10:00 Respiratory Rate 16 08/26/24 07:57 Blood Pressure 124/68 08/26/24 07:57 Pulse Oximetry 97 08/26/24 07:57 Oxygen Delivery Room Air 08/26/24 03:37 Fraction of Inspired Oxygen 21 08/25/24 20:38 Lab Data Lab results reviewed: Yes I reviewed the patient's lab results. 08/26/24 05:53 08/26/24 05:53 Labs: Lab Results 08/22/24 08/22/24 08/22/24 Range/Units 21:03 22:27 22:27 WBC 0.9 L* (4.5-10.0) K/mm3 RBC 3.53 L (4.6-6.20) M/mm3 Hgb 12.0 L (14.0-18.0) g/dL Hct 37.4 L (42.0-52.0) % MCV 105.9 H (80-100) fl MCH 34.0 (26-34) pg MCHC 32.1 (32-36) g/dl RDW 14.6 H (11.5-14.5) % Plt Count 146 L (150-375) k/mm3 MPV 9.1 (7.4-10.4) fl Immature Gran % (Auto) Oncology Physician Assistant Neut % (Auto) Oncology Physician Assistant Lymph % (Auto) Oncology Physician Assistant Hughes % (Auto) Oncology Physician Assistant Eos % (Auto) Oncology Physician Assistant Baso % (Auto) Oncology Physician Assistant Lymph # (Auto) Oncology Physician Assistant Hughes # (Auto) Oncology Physician Assistant Eos # (Auto) Oncology Physician Assistant Baso # (Auto) Oncology Physician Assistant Abs Immat Gran (auto) Oncology Physician Assistant Absolute Neuts (auto) Oncology Physician Assistant Absolute Nucleated RBC Oncology Physician Assistant Total Counted 100 Neutrophils % (Manual) 65 (46-73) % Band Neutrophils % 17 H (0-6) % Lymphocytes % (Manual) 16 L (18-44) % Monocytes % (Manual) 2 L (3-9) % Nucleated RBC % Oncology Physician Assistant Abs Neuts (Manual) 0.73 L (1.3-6.7) K/mm3 Abs Lymphs (Manual) 0.14 L (1.1-4.5) K/mm3 Abs Monocytes (Manual) 0.01 L (0.1-0.90) K/mm3 Platelet Estimate Slightly decreased (Adequate) Schistocytes None seen PT 15.7 H (11.1-14.7) Seconds INR 1.2 APTT 31.4 (22.3-36.8) Seconds Sodium 140 (137-145) mmol/L Potassium 3.2 L (3.4-5.0) mmol/L Chloride 108 H (98-107) mmol/L Carbon Dioxide 23 (22-30) mmol/L Anion Gap 9 (4-12) mmol/L BUN 26 H D (9-20) mg/dL Creatinine 1.15 (0.7-1.3) mg/dL Estim Creat Clear Calc 40 ml/min Estimated GFR 60 (59 - ) Glucose 82 (65-110) mg/dL Lactic Acid 4.1 H* (0.7-2.0) mmol/L Calcium 8.9 (8.4-10.2) mg/dL Magnesium 2.0 (1.6-2.3) mg/dL Total Bilirubin 1.1 (0.2-1.3) mg/dL AST 499 H (17-59) U/L ALT 224 H (6-50) U/L Alkaline Phosphatase 247 H (38-126) U/L Total Creatine Kinase Cancelled 82 Troponin I < 0.012 (0.000-0.034) ng/mL C-Reactive Protein Cancelled Total Protein 8.0 (6.3-8.2) g/dL Albumin 3.8 (3.5-5.1) g/dL Lipase 64 (23-300) U/L Urine Color (Yellow) Urine Appearance (Clear) Urine pH (5.0-9.0) Ur Specific [place] (1.001-1.035) Urine Protein (Negative) mg/dL Urine Glucose (UA) (Negative) mg/dL Urine Ketones (Negative) mg/dL Ur Blood (Man) (Negative) Urine Nitrate (Negative) Urine Bilirubin (Negative) Urine Urobilinogen (<2.0) mg/dL Add Ur Microanalysis Leukocyte Esterase Rfl (Negative) WENDIE/UL Urine RBC (0-2) /hpf Urine WBC (0-3) /hpf Ur Squamous Epith Cells (Few) /hpf Urine Bacteria /hpf Urine Casts Nasal MRSA (PCR) (NOT DETECTE) Influenza A (RT-PCR) (Negative) Influenza B (RT-PCR) (Negative) RSV (RT-PCR) (Negative) SARS-CoV-2 RNA (RT-PCR) (Negative) 08/22/24 08/23/24 08/23/24 Range/Units 22:27 00:22 00:54 WBC (4.5-10.0) K/mm3 RBC (4.6-6.20) M/mm3 Hgb (14.0-18.0) g/dL Hct (42.0-52.0) % MCV (80-100) fl MCH (26-34) pg MCHC (32-36) g/dl RDW (11.5-14.5) % Plt Count (150-375) k/mm3 MPV (7.4-10.4) fl Immature Gran % (Auto) Neut % (Auto) Lymph % (Auto) Hughes % (Auto) Eos % (Auto) Baso % (Auto) Lymph # (Auto) Hughes # (Auto) Eos # (Auto) Baso # (Auto) Abs Immat Gran (auto) Absolute Neuts (auto) Absolute Nucleated RBC Total Counted Neutrophils % (Manual) (46-73) % Band Neutrophils % (0-6) % Lymphocytes % (Manual) (18-44) % Monocytes % (Manual) (3-9) % Nucleated RBC % Abs Neuts (Manual) (1.3-6.7) K/mm3 Abs Lymphs (Manual) (1.1-4.5) K/mm3 Abs Monocytes (Manual) (0.1-0.90) K/mm3 Platelet Estimate (Adequate) Schistocytes PT (11.1-14.7) Seconds INR APTT (22.3-36.8) Seconds Sodium (137-145) mmol/L Potassium (3.4-5.0) mmol/L Chloride (98-107) mmol/L Carbon Dioxide (22-30) mmol/L Anion Gap (4-12) mmol/L BUN (9-20) mg/dL Creatinine (0.7-1.3) mg/dL Estim Creat Clear Calc ml/min Estimated GFR (59 - ) Glucose (65-110) mg/dL Lactic Acid 3.9 H (0.7-2.0) mmol/L Calcium (8.4-10.2) mg/dL Magnesium (1.6-2.3) mg/dL Total Bilirubin (0.2-1.3) mg/dL AST (17-59) U/L ALT (6-50) U/L Alkaline Phosphatase (38-126) U/L Total Creatine Kinase Troponin I (0.000-0.034) ng/mL C-Reactive Protein 4.9 H Total Protein (6.3-8.2) g/dL Albumin (3.5-5.1) g/dL Lipase (23-300) U/L Urine Color Dark yellow (Yellow) Urine Appearance Cloudy H (Clear) Urine pH 5.5 (5.0-9.0) Ur Specific [place] 1.025 (1.001-1.035) Urine Protein 2+ H (Negative) mg/dL Urine Glucose (UA) Negative (Negative) mg/dL Urine Ketones Trace H (Negative) mg/dL Ur Blood (Man) Negative (Negative) Urine Nitrate Negative (Negative) Urine Bilirubin 1+ H (Negative) Urine Urobilinogen 1.0 (<2.0) mg/dL Add Ur Microanalysis Reviewed Leukocyte Esterase Rfl Trace H (Negative) WENDIE/UL Urine RBC 0-2 (0-2) /hpf Urine WBC 0-5 (0-3) /hpf Ur Squamous Epith Cells Occasional (Few) /hpf Urine Bacteria None seen /hpf Urine Casts >20 Nasal MRSA (PCR) Not detected (NOT DETECTE) Influenza A (RT-PCR) Negative (Negative) Influenza B (RT-PCR) Negative (Negative) RSV (RT-PCR) Negative (Negative) SARS-CoV-2 RNA (RT-PCR) Negative (Negative) 08/23/24 08/23/24 Range/Units 05:59 06:00 WBC (4.5-10.0) K/mm3 RBC (4.6-6.20) M/mm3 Hgb (14.0-18.0) g/dL Hct (42.0-52.0) % MCV (80-100) fl MCH (26-34) pg MCHC (32-36) g/dl RDW (11.5-14.5) % Plt Count (150-375) k/mm3 MPV (7.4-10.4) fl Immature Gran % (Auto) Neut % (Auto) Lymph % (Auto) Hughes % (Auto) Eos % (Auto) Baso % (Auto) Lymph # (Auto) Hughes # (Auto) Eos # (Auto) Baso # (Auto) Abs Immat Gran (auto) Absolute Neuts (auto) Absolute Nucleated RBC Total Counted Neutrophils % (Manual) (46-73) % Band Neutrophils % (0-6) % Lymphocytes % (Manual) (18-44) % Monocytes % (Manual) (3-9) % Nucleated RBC % Abs Neuts (Manual) (1.3-6.7) K/mm3 Abs Lymphs (Manual) (1.1-4.5) K/mm3 Abs Monocytes (Manual) (0.1-0.90) K/mm3 Platelet Estimate (Adequate) Schistocytes PT (11.1-14.7) Seconds INR APTT (22.3-36.8) Seconds Sodium (137-145) mmol/L Potassium (3.4-5.0) mmol/L Chloride (98-107) mmol/L Carbon Dioxide (22-30) mmol/L Anion Gap (4-12) mmol/L BUN (9-20) mg/dL Creatinine 1.29 (0.7-1.3) mg/dL Estim Creat Clear Calc 36 ml/min Estimated GFR 53 L (59 - ) Glucose (65-110) mg/dL Lactic Acid (0.7-2.0) mmol/L Calcium (8.4-10.2) mg/dL Magnesium (1.6-2.3) mg/dL Total Bilirubin (0.2-1.3) mg/dL AST (17-59) U/L ALT (6-50) U/L Alkaline Phosphatase (38-126) U/L Total Creatine Kinase Troponin I (0.000-0.034) ng/mL C-Reactive Protein Total Protein (6.3-8.2) g/dL Albumin (3.5-5.1) g/dL Lipase (23-300) U/L Urine Color (Yellow) Urine Appearance (Clear) Urine pH (5.0-9.0) Ur Specific [place] (1.001-1.035) Urine Protein (Negative) mg/dL Urine Glucose (UA) (Negative) mg/dL Urine Ketones (Negative) mg/dL Ur Blood (Man) (Negative) Urine Nitrate (Negative) Urine Bilirubin (Negative) Urine Urobilinogen (<2.0) mg/dL Add Ur Microanalysis Leukocyte Esterase Rfl (Negative) WENDIE/UL Urine RBC (0-2) /hpf Urine WBC (0-3) /hpf Ur Squamous Epith Cells (Few) /hpf Urine Bacteria /hpf Urine Casts Nasal MRSA (PCR) Not detected (NOT DETECTE) Influenza A (RT-PCR) (Negative) Influenza B (RT-PCR) (Negative) RSV (RT-PCR) (Negative) SARS-CoV-2 RNA (RT-PCR) (Negative) Imaging Data Radiologist's impression: CT Abd Pelvis with Contrast Stat Rad: Right perihepatic 7 cm loculated fluid collection which may communicate with a hypodense intraparenchymal hepatic adjacent 2.5 cm structure. Correlate for abscess. Recommend MRI without and with IV contrast and DWI/ADC sequences. Cholecystectomy with mild induration in the gallbladder fossa of uncertain significance, recommend attention on MRI. Possible mild cystitis. Otherwise no acute finding definitively seen. No buttock cellulitis identified. ECG Data EKG #1: Attestation: I personally reviewed and interpreted this ECG as follows: ECG completion date: 08/22/24 ECG completion time: 21:02 Prior ECG tracings: available for review (EKG from 12/17/2022 showed sinus bradycardia with first-degree AV block given MT interval 200) Interpretation: Sinus rhythm at a rate of 90 beats per minute. MT interval 114. QRS 95. QT/QTC 349/404. Good R-wave progression across the precordial leads. T-wave inversion in 3 but otherwise upright in normal in contiguous inferior leads 2 and AVF. Borderline left axis deviation given QRS upright in 1, negative in [address] depressions particularly in V4 and to a lesser extent also appreciated in V3 V5 V6. Discharge Plan Discharge Clinical Impression: Neutropenia with fever, Anemia, macrocytic, Thrombocytopenia, Acidosis, lactic, CRP elevated, Cellulitis of buttock, Intra-abdominal abscess, Abdominal aortic aneurysm Patient Disposition: Still a Patient Condition: Stable
[2024-08-22 21:14] LABS: Hematocrit 37.4 % (42.0-52.0); Mean Corpuscular HGB Conc 32.1 g/dl (32-36); Mean Corpuscular Volume 105.9 fl (80-100); Mean Platelet Volume 9.1 fl (7.4-10.4); Platelet Count Result 146 k/mm3 (150-375); Red Blood Count 3.53 M/mm3 (4.6-6.20); Red Cell Distribution Width 14.6 % (11.5-14.5)
--- OUTSIDE RECORDS SUMMARY | 2024-08-22 21:20 | XMS_ITS ---
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
--- OUTSIDE RECORDS SUMMARY | 2024-08-22 21:20 | XMS_ITS | Clinical Summary ---
Author Organization [facility] Address [address] [place] [address] Care Team Providers Care Photographic Reproduction Technician Name Role Phone XochitlDuke diaz DO Unavailable [phone] Julian Quevedo MD Primary Care Provider Allergies [...] unspecified 01/06/2023 Coronary artery disease invo lving [place] coronary artery of [place] heart without angina pectoris 08/12/2022 Malignant neoplasm of ascending colon 07/04/2022 Cancer Staging:Clinical stage from 07/04/2022:Stage IIIB(cT3, cN1c, cM0) - Signed by Duke Leung DO on 07/04/2022 Encounters Date Type Department Care Team Description 08/09/2024 Orders Only [facility] [address] [place] [address] [phone] Doris Alejo, RN Malignant neoplasm of ascending colon (HCC) (Primary Dx) 08/05/2024 Orders Only [facility] [address] [place] [address] [phone] Duke Leung DO 07/28/2024 2:00 PM CDT Office Visit [facility] [address] [place] [address] [phone] Duke Leung, DO Malignant neoplasm of ascending colon (HCC) (Primary Dx) 07/28/2024 1:30 PM CDT Lab [facility] at [address] [address] Malignant neoplasm of ascending colon (HCC); Antineoplastic chemotherapy induced anemia 07/08/2024 Orders Only [facility] [address] [place] [address] [address] [place] [phone] Duke Leung, DO 07/08/2024 Documentation [facility] [address] [place] [phone] Duke Leung, DO 06/30/2024 9:30 AM CDT Lab [facility] at [address] [address] Malignant neoplasm of ascending colon (HCC); Antineoplastic chemotherapy induced anemia 06/30/2024 8:00 AM CDT Office Visit [facility] [address] [facility] [address] [place] [phone] Yosi Berrios MD Coronary artery disease involving [place] coronary artery of [place] heart without angina pectoris (Primary Dx) 06/30/2024 Results Follow-Up [facility] [address] [place] [phone] Bianka Garcia RN Comprehensive metabolic panel, CEA, CBC with auto differential, Additional followed-up results: 2 06/26/2024 Orders Only [facility] [address] [place] [phone] Duke Leung, DO 06/02/2024 1:15 PM CDT Lab [facility] at [address] [address] Malignant neoplasm of ascending colon (HCC) 06/02/2024 12:45 PM CDT Infusion [facility] at [address] [phone] Malignant neoplasm of ascending colon (HCC) (Primary Dx); Antineoplastic chemotherapy induced anemia 06/02/2024 Results Follow-Up [facility] [address] [place] [address] [address] [place] [phone] Bianka Garcia, RN Comprehensive metabolic panel, CEA, CBC with auto differential, Additional followed-up results: 2 06/02/2024 Telephone [facility] [address] [place] [address] [address] [place] [phone] AlanisTimmyKelle, CHISEL GRINDER 06/01/2024 Telephone [facility] [address] [place] [phone] Duke Leung, 05/31/2024 Orders Only [facility] [address] [place] [address] [address] [place] [phone] Duke Leung, 05/30/2024 Orders Only [facility] [address] [place] [address] [address] [place] [phone] Duke Leung, 05/27/2024 Orders Only [facility] [address] [place] [address] [address] [place] [phone] Duke Leung, 05/26/2024 3:00 PM TAVERN KEEPER Office Visit [facility] [address] [place] [phone] Duke Leung, DO Malignant neoplasm of ascending [...] on file Legal Sex Male 1:12 AM TAVERN KEEPER Gender Identity Not on file Sexual Orientation [...] was last reviewed 2021. Testing performed by: [facility], [address] [place] [address], [place]., [address] Blood 07/28/2024 1:30 PM CDT 07/28/2024 1:31 PM CDT us Duke Leung DO LAB BLOOD ORDERABLES Final R esult [facility] [address] [facility] Department of Laboratories [place], [place] [id number] * Differential, auto (07/28/2024 1:30 PM CDT) Neutrophil abs 1.88 1.50 - 6.50 K/cumm Comment:Testing performed by : [address] [address] Imm gran abs 0.02 0.00 - 0.10 K/cumm MADHAVI Comment:Testing performed by : [address] [address] Lymphocyte abs 2.26 0.80 - 3.30 K/cumm MADHAVI Comment:Testing performed by : [address] [address] Monocyte abs 0.46 0.20 - 0.80 K/cumm MADHAVI Comment:Testing performed by : [address] [address] Eosinophil abs 0.02 0.00 - 0.50 K/cumm MADHAVI Comment:Testing performed by : [address] [address] Basophil abs 0.03 0.00 - 0.10 K/cumm MADHAVI Comment:Testing performed by : [address] [address] Neutrophil pct 40.3 % [facility] Comment: Interpretive Data Percent cell count reference ranges are not reported, since discordance with absolute values may lead to misinterpretation of CBC data. Current Interpretive Data was last revised on 2017. Testing performed by: [address] [address] Imm gran pct 0.4 % M[facility]I Comment: Interpretive Data Percent cell count reference ranges are not reported, since discordance with absolute values may lead to misinterpretation of CBC data. Current Interpretive Data was last revised on 2017. Testing performed by: [address] [address] Lymphocyte pct 48.4 % CERNER Comment: Interpretive Data Percent cell count reference ranges are not reported, since discordance with absolute values may lead to misinterpretation of CBC data. Current Interpretive Data was last revised on 2017. Testing performed by: [address] [address] Monocyte pct 9.9 % [facility] Comment: Interpretive Data Percent cell count reference ranges are not reported, since discordance with absolute values may lead to misinterpretation of CBC data. Current Interpretive Data was last revised on 2017. Testing performed by: [address] [address] Eosinophil pct 0.4 % M[facility]I Comment: Interpretive Data Percent cell count reference ranges are not reported, since discordance with absolute values may lead to misinterpretation of CBC data. Current Interpretive Data was last revised on 2017. Testing performed by: [address] [address] Basophil pct 0.6 % [facility]I Comment: Interpretive Data Percent cell count reference ranges are not reported, since discordance with absolute values may lead to misinterpretation of CBC data. Current Interpretive Data was last revised on 2017. Testing performed by: [address] [address] Blood 07/28/2024 1:30 PM CDT 07/28/2024 1:31 PM CDT Duke Leung DO LAB BLOOD ORDERABLES Final R esult [facility] [address] [facility] Department [place] [address] * (ABNORMAL) CBC with auto differential (07/28/2024 1:30 PM CDT) Pathologist [facility] WBC 4.67 3.80 - 9.90 K/cumm Comment:Testing performed by : [address] [address] Hgb 12.0(L) 13.0 - 17.5 g/dL MAD[facility]AVI Comment:Testing performed by : [address] [address] Hct 34.9(L) 38.9 - 50.3 % M[facility]AVI Comment:Testing performed by : [address] [address] Plt 129(L) 150 - 400 K/cumm MADHAVI Comment:Testing performed by : [address] [address] MPV 9.1 9.1 - 12.3 fL M[facility]AVI Comment:Testing performed by : [address] [address] RBC 3.44(L) 4.30 - 5.80 M/cumm MADHAVI Comment:Testing performed by : [address] [address] MCV 101.5(H) 81.3 - 96.4 fL M[facility]I Comment:Testing performed by : [address] [address] MCH 34.9(H) 27.1 - 33.3 pg M[facility]HAVI Comment:Testing performed by : [address] [address] MCHC 34.4 32.3 - 35.7 g/dL M[facility]I Comment:Testing performed by : [address] [address] RDW CV 15.0(H) 11.1 - 14.9 % MADHAVI Comment:Testing performed by : [address], [address] RDW SD 56.1(H) 35.7 - 48.1 fL [facility]I Comment:Testing performed by : [address] [address] NRBC abs 0.00 0.00 - 0.01 K/cumm M[facility]HAVI Comment:Testing performed by : [address] [address] ANC Prelim 1.88 1.50 - 6.50 K/cumm MADHAVI Comment: Interpretive Data The rapid ANC is a preliminary automated count and may vary from the final ANC (Neut Abs) reported in the WBC differential that follows. Current interpretive data was last revised 2024. Testing performed by: [address] [address] Blood 07/28/2024 1:30 PM CDT 07/28/2024 1:31 PM CDT Duke Leung LAB BLOOD ORDERABLES Final R esult Performing Organization Address [facility] de Phone Number [address] [place] [address] * (ABNORMAL) CEA (07/28/2024 1:30 PM CDT) CEA 70.4(H) <=5.0 ng/mL Comment: Interpretive Data: Reference Range: Non-Smokers: 0.0 5.0 ng/mL Smokers: 0.0 6.5 ng/mL The Oswaldo CEA assay procedure was used. Results from different manufacturers or methods may not be comparable. Serial testing should be performed using the same method. Current interpretive data was last revised 2022. Testing performed by: [address] [address] Blood 07/28/2024 1:30 PM CDT 07/28/2024 3:59 PM CDT Duke Leung LAB BLOOD ORDERABLES Final R [facility] Performing Organization Address [facility] de Phone Number [address] [place] [address] * Comprehensive metabolic panel (07/28/2024 1:30 PM CDT) Sodium 140 135 - 145 mmol/L Comment:Testing performed by : [address] [address] Potassium, pl 4.0 3.3 - 4.9 mmol/L MADHAVI Comment:Testing performed by : [address] [address] Chloride 108 97 - 110 mmol/L M[facility]HAVI Comment:Testing performed by : [address] [address] CO2 24 22 - 32 mmol/L [facility]I Comment:Testing performed by : [address] [address] Anion gap 8 2 - 15 mmol/L [facility] Comment:Testing performed by : [address] [address] BUN 16 6 - 25 mg/dL M[facility]I Comment:Testing performed by : [address], [place]., [address] Creatinine 0.80 0.80 - 1.30 mg/dL M[facility]I Comment:Testing performed by : [address] [address] Glucose 146 70 - 199 mg/dL [facility] Comment: Interpretive Data Fasting glucose >/= [...] was last revised 2022. Testing performed by: [address] [address] Calcium 9.2 8.5 - 10.3 mg/dL M[facility]AVI Comment:Testing performed by : [address] [address] Bilirubin, total 0.7 0.1 - 1.2 mg/dL [facility] Comment:Testing performed by : [address] [address] Protein, pl 7.5 6.5 - 8.5 g/dL [facility]I Comment:Testing performed by : [address] [address] Albumin 4.2 3.5 - 5.0 g/dL M[facility]I Comment:Testing performed by : [address] [address] Alk phos 104 40 - 130 Units/L M[facility]I Comment:Testing performed by : [address] [address] ALT 34 7 - 55 Units/L M[facility]I Comment:Testing performed by : [address] [address] AST 35 10 - 50 Units/L [facility] Comment:Testing performed by : [address] [address] Blood 07/28/2024 1:30 PM CDT 07/28/2024 1:31 PM CDT Duke Leung DO LAB BLOOD ORDERABLES Final R esult [facility] [address] [facility] [place] [address] * eGFR (06/30/2024 9:22 AM CDT) eGFR [...] was last reviewed 2021. Testing performed by: [address] [address] Blood 06/30/2024 9:22 AM CDT 06/30/2024 9:24 AM CDT us Duke Leung DO LAB BLOOD ORDERABLES Final R esult [facility] [address] [facility] Department [place] [address] * Differential, auto (06/30/2024 9:22 AM CDT) Neutrophil abs 1.90 1.50 - 6.50 K/cumm Comment:Testing performed by : [address] [address] Imm gran abs 0.01 0.00 - 0.10 K/cumm MADHAVI Comment:Testing performed by : [address] [address] Lymphocyte abs 1.31 0.80 - 3.30 K/cumm MADHAVI Comment:Testing performed by : [address] [address] Monocyte abs 0.29 0.20 - 0.80 K/cumm MADHAVI Comment:Testing performed by : [address] [address] Eosinophil abs 0.08 0.00 - 0.50 K/cumm MADHAVI Comment:Testing performed by : [address] [address] Basophil abs 0.03 0.00 - 0.10 K/cumm M[facility]HAVI Comment:Testing performed by : [address] [address] Neutrophil pct 52.5 % [facility] Comment: Interpretive Data Percent cell count reference ranges are not reported, since discordance with absolute values may lead to misinterpretation of CBC data. Current Interpretive Data was last revised on 2017. Testing performed by: [address] [address] Imm gran pct 0.3 % [facility] Comment: Interpretive Data Percent cell count reference ranges are not reported, since discordance with absolute values may lead to misinterpretation of CBC data. Current Interpretive Data was last revised on 2017. Testing performed by: [address] [address] Lymphocyte pct 36.2 % [facility] Comment: Interpretive Data Percent cell count reference ranges are not reported, since discordance with absolute values may lead to misinterpretation of CBC data. Current Interpretive Data was last revised on 2017. Testing performed by: [address] [address] Monocyte pct 8.0 % [facility] Comment: Interpretive Data Percent cell count reference ranges are not reported, since discordance with absolute values may lead to misinterpretation of CBC data. Current Interpretive Data was last revised on 2017. Testing performed by: [address] [address] Eosinophil pct 2.2 % [facility] Comment: Interpretive Data Percent cell count reference ranges are not reported, since discordance with absolute values may lead to misinterpretation of CBC data. Current Interpretive Data was last revised on 2017. Testing performed by: [address] [address] Basophil pct 0.8 % [facility] Comment: Interpretive Data Percent cell count reference ranges are not reported, since discordance with absolute values may lead to misinterpretation of CBC data. Current Interpretive Data was last revised on 2017. Testing performed by: [address] [address] Blood 06/30/2024 9:22 AM CDT 06/30/2024 9:24 AM CDT us Duke Leung DO LAB BLOOD ORDERABLES Final R esult [facility] [address] [facility] Department [place] [address] * (ABNORMAL) CBC with auto differential (06/30/2024 9:22 AM CDT) WBC 3.62(L) 3.80 - 9.90 K/cumm Comment:Testing performed by : [address] [address] Hgb 10.7(L) 13.0 - 17.5 g/dL [facility] Comment:Testing performed by : [address], [address] Hct 31.9(L) 38.9 - 50.3 % [facility] Comment:Testing performed by : [address], [address] Plt 153 150 - 400 K/cumm MADHAVI Comment:Testing performed by : [address], [address] MPV 9.2 9.1 - 12.3 fL [facility] Comment:Testing performed by : [address], [address] RBC 3.07(L) 4.30 - 5.80 M/cumm M[facility]HAVI Comment:Testing performed by : [address], [address] MCV 103.9(H) 81.3 - 96.4 fL [facility] Comment:Testing performed by : [address], [address] MCH 34.9(H) 27.1 - 33.3 pg [facility] Comment:Testing performed by : [address], [address] MCHC 33.5 32.3 - 35.7 g/dL [facility] Comment:Testing performed by : [address], [address] RDW CV 16.2(H) 11.1 - 14.9 % [facility] Comment:Testing performed by : [address], [address] RDW SD 62.1(H) 35.7 - 48.1 fL [facility] Comment:Testing performed by : [address], [address] NRBC abs 0.00 0.00 - 0.01 K/cumm M[facility]HAVI Comment:Testing performed by : [address], [address] ANC Prelim 1.90 1.50 - 6.50 K/cumm M[facility]I Comment: Interpretive Data The rapid ANC is a preliminary automated count and may vary from the final ANC (Neut Abs) reported in the WBC differential that follows. Current interpretive data was last revised 2024. Testing performed by: [address] [address] Blood 06/30/2024 9:22 AM CDT 06/30/2024 9:24 AM CDT Duke BeardenNelson Xochitl DO LAB BLOOD ORDERABLES Final R esult Performing Organization Address [facility] de Phone Number [facility] [address] [facility] [place] [address] * (ABNORMAL) CEA (06/30/2024 9:22 AM CDT) CEA 98.3(H) <=5.0 ng/mL Comment: Interpretive Data: Reference Range: Non-Smokers: 0.0 5.0 ng/mL Smokers: 0.0 6.5 ng/mL The Oswaldo CEA assay procedure was used. Results from different manufacturers or methods may not be comparable. Serial testing should be performed using the same method. Current interpretive data was last revised 2022. Testing performed by: [address] [address] Blood 06/30/2024 9:22 AM CDT 06/30/2024 11:46 AM CDT Duke BeardenNelson Xochitl LAB BLOOD ORDERABLES Final R esult Performing Organization Address [facility] Co de Phone Number [facility] [address] [facility] [place] [address] * Comprehensive metabolic panel (06/30/2024 9:22 AM CDT) Sodium 140 135 - 145 mmol/L Comment:Testing performed by : [address] [address] Potassium, pl 4.1 3.3 - 4.9 mmol/L [facility] Comment:Testing performed by : [address], [place]., [address] Chloride 106 97 - 110 mmol/L [facility] Comment:Testing performed by : [address], [place]., [address] CO2 25 22 - 32 mmol/L [facility] Comment:Testing performed by : [address], [place]., [address] Anion gap 9 2 - 15 mmol/L [facility] Comment:Testing performed by : [address], [place]., [address] BUN 15 6 - 25 mg/dL [facility] Comment:Testing performed by : [address], [place]., [address] Creatinine 0.80 0.80 - 1.30 mg/dL [facility] Comment:Testing performed by : [address], [place]., [address] Glucose 111 70 - 199 mg/dL [facility] [...] was last revised 2022. Testing performed by: [address] [address] Calcium 9.3 8.5 - 10.3 mg/dL [facility] Comment:Testing performed by : [address] [address] Bilirubin, total 1.0 0.1 - 1.2 mg/dL [facility] Comment:Testing performed by : [address] [address] Protein, pl 7.1 6.5 - 8.5 g/dL [facility] Comment:Testing performed by : [address] [address] Albumin 4.2 3.5 - 5.0 g/dL [facility] Comment:Testing performed by : [address] [address] Alk phos 81 40 - 130 Units/L [facility] Comment:Testing performed by : [address] [address] ALT 34 7 - 55 Units/L [facility] Comment:Testing performed by : [address] [address] AST 35 10 - 50 Units/L [facility] Comment:Testing performed by : [address], [place]., [address] Blood 06/30/2024 9:22 AM CDT 06/30/2024 9:24 AM CDT Duke Leung DO LAB BLOOD ORDERABLES Final R esult [facility] Department [place] [address] * eGFR (06/02/2024 1:08 PM CDT) eGFR [...] was last reviewed 2021. Testing performed by: [address] [address] Blood 06/02/2024 1:08 PM CDT 06/02/2024 1:12 PM CDT Duke Leung DO LAB BLOOD ORDERABLES Final R esult [facility] [address] [facility] Department [place] [address] * (ABNORMAL) Differential, auto (06/02/2024 1:08 PM CDT) Neutrophil abs 0.5(L) 1.5 - 6.5 K/cumm Comment:Testing performed by : [address] [address] Imm gran abs 0.0 0.0 - 0.1 K/cumm [facility]I Comment:Testing performed by : [address] [address] Lymphocyte abs 1.3 0.8 - 3.3 K/cumm [facility]I Comment:Testing performed by : [address] [address] Monocyte abs 0.3 0.2 - 0.8 K/cumm M[facility]AVI Comment:Testing performed by : [address] [address] Eosinophil abs 0.0 0.0 - 0.5 K/cumm M[facility]AVI Comment:Testing performed by : [address] [address] Basophil abs 0.0 0.0 - 0.1 K/cumm M[facility]HAVI Comment:Testing performed by : [address] [address] Neutrophil pct 21.4 % [facility] Comment: Interpretive Data Percent cell count reference ranges are not reported, since discordance with absolute values may lead to misinterpretation of CBC data. Current Interpretive Data was last revised on 2017. Testing performed by: [address] [address] Imm gran pct 0.5 % [facility] Comment: Interpretive Data Percent cell count reference ranges are not reported, since discordance with absolute values may lead to misinterpretation of CBC data. Current Interpretive Data was last revised on 2017. Testing performed by: [address] [address] Lymphocyte pct 60.9 % [facility] Comment: Interpretive Data Percent cell count reference ranges are not reported, since discordance with absolute values may lead to misinterpretation of CBC data. Current Interpretive Data was last revised on 2017. Testing performed by: [address] [address] Monocyte pct 15.8 % [facility] Comment: Interpretive Data Percent cell count reference ranges are not reported, since discordance with absolute values may lead to misinterpretation of CBC data. Current Interpretive Data was last revised on 2017. Testing performed by: [address] [address] Eosinophil pct 0.9 % [facility] Comment: Interpretive Data Percent cell count reference ranges are not reported, since discordance with absolute values may lead to misinterpretation of CBC data. Current Interpretive Data was last revised on 2017. Testing performed by: [address] [address] Basophil pct 0.5 % [facility] Comment: Interpretive Data Percent cell count reference ranges are not reported, since discordance with absolute values may lead to misinterpretation of CBC data. Current Interpretive Data was last revised on 2017. Testing performed by: [address] [address] Blood 06/02/2024 1:08 PM CDT 06/02/2024 1:12 PM CDT us Duke Leung DO LAB BLOOD ORDERABLES Final R esult [facility] MATOS [address] [facility] Department of Laboratories [place], [place] [id number] * (ABNORMAL) CBC with auto differential (06/02/2024 1:08 PM CDT) WBC 2.2(L) 3.8 - 9.9 K/cumm Comment:Testing performed by : [address] [address] Hgb 8.4(L) 13.0 - 17.5 g/dL [facility]I Comment:Testing performed by : [address] [address] Hct 25.2(L) 38.9 - 50.3 % [facility] Comment:Testing performed by : [address], [address] Plt 143(L) 150 - 400 K/cumm [facility]I Comment:Testing performed by : [address], [address] MPV 9.5 9.1 - 12.3 fL [facility] Comment:Testing performed by : [address] [address] RBC 2.37(L) 4.30 - 5.80 M/cumm [facility]I Comment:Testing performed by : [address] [address] MCV 106.3(H) 81.3 - 96.4 fL [facility] Comment:Testing performed by : [address] [address] MCH 35.4(H) 27.1 - 33.3 pg [facility]I Comment:Testing performed by : [address], [address] MCHC 33.3 32.3 - 35.7 g/dL [facility]I Comment:Testing performed by : [address], [address] RDW CV 17.1(H) 11.1 - 14.9 % [facility] Comment:Testing performed by : [address], [address] RDW SD 64.4(H) 35.7 - 48.1 fL [facility] Comment:Testing performed by : [address] [address] NRBC abs 0.00 0.00 - 0.01 K/cumm [facility]I Comment:Testing performed by : [address] [address] Blood 06/02/2024 1:08 PM CDT 06/02/2024 1:12 PM CDT Duke Leung LAB BLOOD ORDERABLES Final R esult Performing Organization Address [facility] de Phone Number [facility] [place] [address] * (ABNORMAL) CEA (06/02/2024 1:08 PM CDT) CEA 50.7(H) <=5.0 ng/mL Comment: Interpretive Data: Reference Range: Non-Smokers: 0.0 5.0 ng/mL Smokers: 0.0 6.5 ng/mL The Oswaldo CEA assay procedure was used. Results from different manufacturers or methods may not be comparable. Serial testing should be performed using the same method. Current interpretive data was last revised 2022. Testing performed by: [address] [address] Blood 06/02/2024 1:08 PM CDT 06/02/2024 1:36 PM CDT Duke Leung LAB BLOOD ORDERABLES Final R esult Performing Organization Address [facility] Co de Phone Number [id number] [place], [place] [address] * Comprehensive metabolic panel (06/02/2024 1:08 PM CDT) Sodium 140 135 - 145 mmol/L Comment:Testing performed by : [address] [address] Potassium, pl 3.8 3.3 - 4.9 mmol/L [facility] MATOS Comment:Testing performed by : [address] [address] Chloride 108 97 - 110 mmol/L MADHAVI MATOS Comment:Testing performed by : [address] [address] CO2 24 22 - 32 mmol/L [facility] Comment:Testing performed by : [address] [address] Anion gap 8 2 - 15 mmol/L [facility] Comment:Testing performed by : [address] [address] BUN 16 6 - 25 mg/dL [facility] Comment:Testing performed by : [address] [address] Creatinine 0.80 0.80 - 1.30 mg/dL [facility] Comment:Testing performed by : [address] [address] Glucose 111 70 - 199 mg/dL [facility] Comment: Interpretive Data Fasting glucose >/= 126 [...] was last revised 2022. Testing performed by: [address] [address] Calcium 8.8 8.5 - 10.3 mg/dL [facility] Comment:Testing performed by : [address] [address] Bilirubin, total 0.6 0.1 - 1.2 mg/dL [facility] Comment:Testing performed by : [address] [address] Protein, pl 7.1 6.5 - 8.5 g/dL [facility] Comment:Testing performed by : [address] [address] Albumin 4.0 3.5 - 5.0 g/dL [facility] Comment:Testing performed by : [address] [address] Alk phos 86 40 - 130 Units/L M[facility]HAVI MATOS Comment:Testing performed by : [address] [address] ALT 27 7 - 55 Units/L MADHAVI MATOS Comment:Testing performed by : [facility], [address] [place] [address]., [address] AST 33 10 - 50 Units/L MADHAVI MATOS Comment:Testing performed by : [address] [address] Blood 06/02/2024 1:08 PM CDT 06/02/2024 1:12 PM CDT us Duke Leung DO LAB BLOOD ORDERABLES Final R esult [facility] [address] [facility] Department [place] [address] from Last 3 Months Insurance MEDICARE [facility] MEDICARE SUPPLEMENT MEDICARE [employer] MEDICARE SUPPLEMENT [facility] MEDICARE Advance Directives For more information, please contact: [phone] * Full Code (Latest Code Status on File) Date Activated Date Inactivated Comments 07/15/2023 10:51 AM 07/16/2023 5:19 AM Care Teams Photographic Reproduction Technician Relationship Specialty Start Date End Date Julian Quevedo MD [address] [facility] [address] [place], [place] [id number] PCP - General Family Medicine 06/30/24 Duke Leung DO [address] [facility], [facility] [address] [place] [address] Medical Oncologist/Head Buyer Tobacco Hematology and Oncology 01/27/23
--- OUTSIDE RECORDS SUMMARY | 2024-08-22 21:20 | XMS_ITS | Referral Summary ---
Author Organization [facility] Address [address] [place] [phone] Care Team Providers Care Magnetic Prospecting Supervisor Name Role Phone Duke Leung DO Unavailable [phone] Julian Quevedo MD Primary Care Provider Encounters Date Type Department Care Team Description 08/09/2024 Orders Only [facility] [address] [place] [address] [address] [place] [phone] Doris Alejo, RN Malignant neoplasm of ascending colon (HCC) (Primary Dx) 08/05/2024 Orders Only [facility] [address] [place] [address] [address] [place] [phone] Duke Leung DO 07/28/2024 2:00 PM CDT Office Visit [facility] [address] [place] [address] [address] [place] [phone] Duke Leung DO Malignant neoplasm of ascending colon (HCC) (Primary Dx) 07/28/2024 1:30 PM CDT Lab [facility] at [address] [address] Malignant neoplasm of ascending colon (HCC); Antineoplastic chemotherapy induced anemia 07/08/2024 Orders Only [facility] [address] [place] [address] [address] [place] [phone] Duke Leung DO 07/08/2024 Documentation [facility] [address] [place] [address] [address] [place] [phone] Duke Leung, DO 06/30/2024 Results Follow-Up [facility] [address] [place] [address] [address] [place] [phone] Bianka Garcia RN Comprehensive metabolic panel, CEA, CBC with auto differential, Additional followed-up results: 2 06/30/2024 9:30 AM CDT Lab [address] [address] Malignant neoplasm of ascending colon (HCC); Antineoplastic chemotherapy induced anemia 06/30/2024 8:00 AM CDT Office Visit [facility] [address] [place] [phone] Yosi Berrios MD 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) 06/26/2024 Orders Only [facility] [address] [place] [phone] Duke Leung, DO 06/02/2024 Results Follow-Up [facility] [address] [place] [phone] Bianka Garcia RN Comprehensive metabolic panel, CEA, CBC with auto differential, Additional followed-up results: 2 06/02/2024 1:15 PM CDT Lab [address] [address] Malignant neoplasm of ascending colon (HCC) 06/02/2024 Telephone [facility] [address] [place] [phone] Kelle Thapa, INSTRUMENT AND CONTROLS TECHNICIAN 06/02/2024 12:45 PM CDT Infusion [address] [phone] Malignant neoplasm of ascending colon (HCC) (Primary Dx); Antineoplastic chemotherapy induced anemia 06/01/2024 Telephone [facility] [address] [place] [address] [address] [place] [phone] Duke Leung, DO 05/31/2024 Orders Only [facility] [address] [place] [address] [address] [place] [phone] Duke Leung, DO 05/30/2024 Orders Only [facility] [address] [place] [address] [address] [place] [phone] Duke Leung, DO 05/27/2024 Orders Only [facility] [address] [place] [address] [address] [place] [phone] Duke Leung, 05/26/2024 3:00 PM NANOTECHNOLOGY ENGINEERING TECHNICIAN Office Visit [facility] [address] [place] [address] [address] [place] [phone] Duke Leung, DO Malignant neoplasm of ascending [...] unspecified 01/06/2023 Coronary artery disease invo lving curyung coronary artery of curyung heart without angina pectoris 08/12/2022 Malignant neoplasm [...] on file Legal Sex Male 1:12 AM NANOTECHNOLOGY ENGINEERING TECHNICIAN Gender Identity Not on file Sexual Orientation [...] was last reviewed 2021. Testing performed by: [address] [address] Blood 07/28/2024 1:30 PM CDT 07/28/2024 1:31 PM CDT Duke Leung DO LAB BLOOD ORDERABLES Final R esult [facility] Department of Laboratories [place], [place] [id number] * Differential, auto (07/28/2024 1:30 PM CDT) Neutrophil abs 1.88 1.50 - 6.50 K/cumm Comment:Testing performed by : [address] [address] Imm gran abs 0.02 0.00 - 0.10 K/cumm [facility] Comment:Testing performed by : [address] [address] Lymphocyte abs 2.26 0.80 - 3.30 K/cumm [facility] Comment:Testing performed by : [address] [address] Monocyte abs 0.46 0.20 - 0.80 K/cumm [facility] Comment:Testing performed by : [address] [address] Eosinophil abs 0.02 0.00 - 0.50 K/cumm [facility] Comment:Testing performed by : [address] [address] Basophil abs 0.03 0.00 - 0.10 K/cumm [facility] Comment:Testing performed by : [address] [address] Neutrophil pct 40.3 % [facility] Comment: Interpretive Data Percent cell count reference ranges are not reported, since discordance with absolute values may lead to misinterpretation of CBC data. Current Interpretive Data was last revised on 2017. Testing performed by: [address] [address] Imm gran pct 0.4 % [facility] Comment: Interpretive Data Percent cell count reference ranges are not reported, since discordance with absolute values may lead to misinterpretation of CBC data. Current Interpretive Data was last revised on 2017. Testing performed by: [address] [address] Lymphocyte pct 48.4 % [facility] Comment: Interpretive Data Percent cell count reference ranges are not reported, since discordance with absolute values may lead to misinterpretation of CBC data. Current Interpretive Data was last revised on 2017. Testing performed by: [address] [address] Monocyte pct 9.9 % [facility] Comment: Interpretive Data Percent cell count reference ranges are not reported, since discordance with absolute values may lead to misinterpretation of CBC data. Current Interpretive Data was last revised on 2017. Testing performed by: [address] [address] Eosinophil pct 0.4 % [facility] Comment: Interpretive Data Percent cell count reference ranges are not reported, since discordance with absolute values may lead to misinterpretation of CBC data. Current Interpretive Data was last revised on 2017. Testing performed by: [address] [address] Basophil pct 0.6 % [facility] Comment: Interpretive Data Percent cell count reference ranges are not reported, since discordance with absolute values may lead to misinterpretation of CBC data. Current Interpretive Data was last revised on 2017. Testing performed by: [address] [address] Blood 07/28/2024 1:30 PM CDT 07/28/2024 1:31 PM CDT Duke Leung DO LAB BLOOD ORDERABLES Final R esult [facility] [address] [facility] Department [place] [address] * (ABNORMAL) CBC with auto differential (07/28/2024 1:30 PM CDT) WBC 4.67 3.80 - 9.90 K/cumm Comment:Testing performed by : [address] [address] Hgb 12.0(L) 13.0 - 17.5 g/dL [facility] Comment:Testing performed by : [address] [address] Hct 34.9(L) 38.9 - 50.3 % [facility] Comment:Testing performed by : [address] [address] Plt 129(L) 150 - 400 K/cumm [facility] Comment:Testing performed by : [address] [address] MPV 9.1 9.1 - 12.3 fL [facility] Comment:Testing performed by : [address] [address] RBC 3.44(L) 4.30 - 5.80 M/cumm [facility] Comment:Testing performed by : [address] [address] MCV 101.5(H) 81.3 - 96.4 fL [facility] Comment:Testing performed by : [address] [address] MCH 34.9(H) 27.1 - 33.3 pg [facility] MATOS Comment:Testing performed by : [address] [address] MCHC 34.4 32.3 - 35.7 g/dL [facility] Comment:Testing performed by : [address] [address] RDW CV 15.0(H) 11.1 - 14.9 % [facility] Comment:Testing performed by : [address] [address] RDW SD 56.1(H) 35.7 - 48.1 fL [facility] Comment:Testing performed by : [address] [address] NRBC abs 0.00 0.00 - 0.01 K/cumm [facility] Comment:Testing performed by : [address] [address] ANC Prelim 1.88 1.50 - 6.50 K/cumm [facility] Comment: Interpretive Data The rapid ANC is a preliminary automated count and may vary from the final ANC (Neut Abs) reported in the WBC differential that follows. Current interpretive data was last revised 2024. Testing performed by: [address] [address] Blood 07/28/2024 1:30 PM CDT 07/28/2024 1:31 PM CDT Duke Leung DO LAB BLOOD ORDERABLES Final R esult [facility] [address] [facility] Department [place] [address] * (ABNORMAL) CEA (07/28/2024 1:30 PM CDT) CEA 70.4(H) <=5.0 ng/mL Comment: Interpretive Data: Reference Range: Non-Smokers: 0.0 5.0 ng/mL Smokers: 0.0 6.5 ng/mL The Oswaldo CEA assay procedure was used. Results from different manufacturers or methods may not be comparable. Serial testing should be performed using the same method. Current interpretive data was last revised 2022. Testing performed by: [address] [address] Blood 07/28/2024 1:30 PM CDT 07/28/2024 3:59 PM CDT us Duke Leung DO LAB BLOOD ORDERABLES Final R esult [facility] [address] [facility] Department of Laboratories [place], [place] [id number] * Comprehensive metabolic panel (07/28/2024 1:30 PM CDT) Sodium 140 135 - 145 mmol/L Comment:Testing performed by : [address] [address] Potassium, pl 4.0 3.3 - 4.9 mmol/L [facility] Comment:Testing performed by : [address] [address] Chloride 108 97 - 110 mmol/L [facility] Comment:Testing performed by : [address] [address] CO2 24 22 - 32 mmol/L [facility] Comment:Testing performed by : [address] [address] Anion gap 8 2 - 15 mmol/L [facility] Comment:Testing performed by : [address] [address] BUN 16 6 - 25 mg/dL [facility] Comment:Testing performed by : [address] [address] Creatinine 0.80 0.80 - 1.30 mg/dL [facility] Comment:Testing performed by : [address] [address] Glucose 146 70 - 199 mg/dL [facility] [...] was last revised 2022. Testing performed by: [address] [address] Calcium 9.2 8.5 - 10.3 mg/dL [facility] Comment:Testing performed by : [address] [address] Bilirubin, total 0.7 0.1 - 1.2 mg/dL [facility] Comment:Testing performed by : [address] [address] Protein, pl 7.5 6.5 - 8.5 g/dL [facility] Comment:Testing performed by : [address] [address] Albumin 4.2 3.5 - 5.0 g/dL [facility] Comment:Testing performed by : [address] [address] Alk phos 104 40 - 130 Units/L [facility] Comment:Testing performed by : [address] [address] ALT 34 7 - 55 Units/L [facility] Comment:Testing performed by : [address] [address] AST 35 10 - 50 Units/L [facility] Comment:Testing performed by : [address] [address] Blood 07/28/2024 1:30 PM CDT 07/28/2024 1:31 PM CDT Duke Leung DO LAB BLOOD ORDERABLES Final R esult [facility] [address] [facility] Department of Laboratories [place], [place] [id number] * eGFR (06/30/2024 9:22 AM CDT) eGFR [...] was last reviewed 2021. Testing performed by: [address] [address] Blood 06/30/2024 9:22 AM CDT 06/30/2024 9:24 AM CDT Duke Leung DO LAB BLOOD ORDERABLES Final R esult [facility] Department [place] [address] * Differential, auto (06/30/2024 9:22 AM CDT) Neutrophil abs 1.90 1.50 - 6.50 K/cumm Comment:Testing performed by : [address] [address] Imm gran abs 0.01 0.00 - 0.10 K/cumm [facility] Comment:Testing performed by : [address] [address] Lymphocyte abs 1.31 0.80 - 3.30 K/cumm [facility] Comment:Testing performed by : [address] [address] Monocyte abs 0.29 0.20 - 0.80 K/cumm [facility] Comment:Testing performed by : [address] [address] Eosinophil abs 0.08 0.00 - 0.50 K/cumm [facility] Comment:Testing performed by : [address] [address] Basophil abs 0.03 0.00 - 0.10 K/cumm [facility] Comment:Testing performed by : [address] [address] Neutrophil pct 52.5 % [facility] Comment: Interpretive Data Percent cell count reference ranges are not reported, since discordance with absolute values may lead to misinterpretation of CBC data. Current Interpretive Data was last revised on 2017. Testing performed by: [address] [address] Imm gran pct 0.3 % [facility] Comment: Interpretive Data Percent cell count reference ranges are not reported, since discordance with absolute values may lead to misinterpretation of CBC data. Current Interpretive Data was last revised on 2017. Testing performed by: [address] [address] Lymphocyte pct 36.2 % [facility] Comment: Interpretive Data Percent cell count reference ranges are not reported, since discordance with absolute values may lead to misinterpretation of CBC data. Current Interpretive Data was last revised on 2017. Testing performed by: [address] [address] Monocyte pct 8.0 % [facility] Comment: Interpretive Data Percent cell count reference ranges are not reported, since discordance with absolute values may lead to misinterpretation of CBC data. Current Interpretive Data was last revised on 2017. Testing performed by: [address] [address] Eosinophil pct 2.2 % [facility] Comment: Interpretive Data Percent cell count reference ranges are not reported, since discordance with absolute values may lead to misinterpretation of CBC data. Current Interpretive Data was last revised on 2017. Testing performed by: [address] [address] Basophil pct 0.8 % [facility] Comment: Interpretive Data Percent cell count reference ranges are not reported, since discordance with absolute values may lead to misinterpretation of CBC data. Current Interpretive Data was last revised on 2017. Testing performed by: [address] [address] Blood 06/30/2024 9:22 AM CDT 06/30/2024 9:24 AM CDT Duke Leung DO LAB BLOOD ORDERABLES Final R esult [facility] [address] [facility] Department of Laboratories [place], [place] [id number] * (ABNORMAL) CBC with auto differential (06/30/2024 9:22 AM CDT) [facility] WBC 3.62(L) 3.80 - 9.90 K/cumm Comment:Testing performed by : [address], [address] Hgb 10.7(L) 13.0 - 17.5 g/dL [facility] Comment:Testing performed by : [address], [address] Hct 31.9(L) 38.9 - 50.3 % [facility] Comment:Testing performed by : [address] [address] Plt 153 150 - 400 K/cumm [facility] Comment:Testing performed by : [address], [address] MPV 9.2 9.1 - 12.3 fL [facility] Comment:Testing performed by : [address], [address] RBC 3.07(L) 4.30 - 5.80 M/cumm [facility] Comment:Testing performed by : [address], [address] MCV 103.9(H) 81.3 - 96.4 fL [facility] Comment:Testing performed by : [address], [address] MCH 34.9(H) 27.1 - 33.3 pg [facility] MATOS Comment:Testing performed by : [address], [address] MCHC 33.5 32.3 - 35.7 g/dL [facility] MATOS Comment:Testing performed by : [address] [address] RDW CV 16.2(H) 11.1 - 14.9 % [facility] Comment:Testing performed by : [address] [address] RDW SD 62.1(H) 35.7 - 48.1 fL [facility] Comment:Testing performed by : [address] [address] NRBC abs 0.00 0.00 - 0.01 K/cumm [facility] Comment:Testing performed by : [address] [address] ANC Prelim 1.90 1.50 - 6.50 K/cumm [facility] Comment: Interpretive Data The rapid ANC is a preliminary automated count and may vary from the final ANC (Neut Abs) reported in the WBC differential that follows. Current interpretive data was last revised 2024. Testing performed by: [address] [address] Blood 06/30/2024 9:22 AM CDT 06/30/2024 9:24 AM CDT Duke Leung DO LAB BLOOD ORDERABLES Final R esult [facility] [address] [facility] Department of Laboratories [place], [place] [id number] * (ABNORMAL) CEA (06/30/2024 9:22 AM CDT) Pathologist [facility] CEA 98.3(H) <=5.0 ng/mL Comment: Interpretive Data: Reference Range: Non-Smokers: 0.0 5.0 ng/mL Smokers: 0.0 6.5 ng/mL The Oswaldo CEA assay procedure was used. Results from different manufacturers or methods may not be comparable. Serial testing should be performed using the same method. Current interpretive data was last revised 2022. Testing performed by: [address] [address] Blood 06/30/2024 9:22 AM CDT 06/30/2024 11:46 AM CDT us Duke Leung DO LAB BLOOD ORDERABLES Final R esult [facility] [address] [facility] Department [place] [address] * Comprehensive metabolic panel (06/30/2024 9:22 AM CDT) Sodium 140 135 - 145 mmol/L Comment:Testing performed by : [address] [address] Potassium, pl 4.1 3.3 - 4.9 mmol/L [facility] Comment:Testing performed by : [address] [address] Chloride 106 97 - 110 mmol/L [facility] Comment:Testing performed by : [address] [address] CO2 25 22 - 32 mmol/L [facility] Comment:Testing performed by : [address] [address] Anion gap 9 2 - 15 mmol/L [facility] Comment:Testing performed by : [address] [address] BUN 15 6 - 25 mg/dL [facility] Comment:Testing performed by : [address] [address] Creatinine 0.80 0.80 - 1.30 mg/dL [facility] Comment:Testing performed by : [address] [address] Glucose 111 70 - 199 mg/dL [facility] [...] was last revised 2022. Testing performed by: [address] [address] Calcium 9.3 8.5 - 10.3 mg/dL [facility] Comment:Testing performed by : [address] [address] Bilirubin, total 1.0 0.1 - 1.2 mg/dL [facility] Comment:Testing performed by : [address] [address] Protein, pl 7.1 6.5 - 8.5 g/dL [facility] Comment:Testing performed by : [address] [address] Albumin 4.2 3.5 - 5.0 g/dL [facility] Comment:Testing performed by : [address] [address] Alk phos 81 40 - 130 Units/L [facility] Comment:Testing performed by : [address] [address] ALT 34 7 - 55 Units/L [facility] Comment:Testing performed by : [address] [address] AST 35 10 - 50 Units/L [facility] Comment:Testing performed by : [address] [address] Blood 06/30/2024 9:22 AM CDT 06/30/2024 9:24 AM CDT us Duke Leung DO LAB BLOOD ORDERABLES Final R esult [facility] [address] [facility] Department [place] [address] * eGFR (06/02/2024 1:08 PM [...] was last reviewed 2021. Testing performed by: [address] [address] Blood 06/02/2024 1:08 PM CDT 06/02/2024 1:12 PM CDT Duke Leung DO LAB BLOOD ORDERABLES Final R esult [facility] [address] [facility] Department [place] [address] * (ABNORMAL) Differential, auto (06/02/2024 1:08 PM CDT) Neutrophil abs 0.5(L) 1.5 - 6.5 K/cumm Comment:Testing performed by : [address] [address] Imm gran abs 0.0 0.0 - 0.1 K/cumm [facility] Comment:Testing performed by : [address] [address] Lymphocyte abs 1.3 0.8 - 3.3 K/cumm [facility] Comment:Testing performed by : [address] [address] Monocyte abs 0.3 0.2 - 0.8 K/cumm [facility] Comment:Testing performed by : [address] [address] Eosinophil abs 0.0 0.0 - 0.5 K/cumm [facility] Comment:Testing performed by : [address] [address] Basophil abs 0.0 0.0 - 0.1 K/cumm [facility] Comment:Testing performed by : [address] [address] Neutrophil pct 21.4 % [facility] Comment: Interpretive Data Percent cell count reference ranges are not reported, since discordance with absolute values may lead to misinterpretation of CBC data. Current Interpretive Data was last revised on 2017. Testing performed by: [address] [address] Imm gran pct 0.5 % [facility] Comment: Interpretive Data Percent cell count reference ranges are not reported, since discordance with absolute values may lead to misinterpretation of CBC data. Current Interpretive Data was last revised on 2017. Testing performed by: [address] [address] Lymphocyte pct 60.9 % [facility] Comment: Interpretive Data Percent cell count reference ranges are not reported, since discordance with absolute values may lead to misinterpretation of CBC data. Current Interpretive Data was last revised on 2017. Testing performed by: [address] [address] Monocyte pct 15.8 % [facility] Comment: Interpretive Data Percent cell count reference ranges are not reported, since discordance with absolute values may lead to misinterpretation of CBC data. Current Interpretive Data was last revised on 2017. Testing performed by: [address] [address] Eosinophil pct 0.9 % [facility] Comment: Interpretive Data Percent cell count reference ranges are not reported, since discordance with absolute values may lead to misinterpretation of CBC data. Current Interpretive Data was last revised on 2017. Testing performed by: [address] [address] Basophil pct 0.5 % [facility] Comment: Interpretive Data Percent cell count reference ranges are not reported, since discordance with absolute values may lead to misinterpretation of CBC data. Current Interpretive Data was last revised on 2017. Testing performed by: [address] [address] Blood 06/02/2024 1:08 PM CDT 06/02/2024 1:12 PM CDT Duke Leung DO LAB BLOOD ORDERABLES Final R esult [facility] [address] [facility] Department [place] [address] * (ABNORMAL) CBC with auto differential (06/02/2024 1:08 PM CDT) WBC 2.2(L) 3.8 - 9.9 K/cumm Comment:Testing performed by : [address] [address] Hgb 8.4(L) 13.0 - 17.5 g/dL [facility] Comment:Testing performed by : [address] [address] Hct 25.2(L) 38.9 - 50.3 % [facility] Comment:Testing performed by : [address] [address] Plt 143(L) 150 - 400 K/cumm [facility] Comment:Testing performed by : [address] [address] MPV 9.5 9.1 - 12.3 fL [facility] Comment:Testing performed by : [address] [address] RBC 2.37(L) 4.30 - 5.80 M/cumm [facility] Comment:Testing performed by : [address] [address] MCV 106.3(H) 81.3 - 96.4 fL [facility] Comment:Testing performed by : [address] [address] MCH 35.4(H) 27.1 - 33.3 pg [facility] MATOS Comment:Testing performed by : [address] [address] MCHC 33.3 32.3 - 35.7 g/dL [facility] Comment:Testing performed by : [address] [address] RDW CV 17.1(H) 11.1 - 14.9 % [facility] Comment:Testing performed by : [address] [address] RDW SD 64.4(H) 35.7 - 48.1 fL [facility] Comment:Testing performed by : [address] [address] NRBC abs 0.00 0.00 - 0.01 K/cumm [facility] Comment:Testing performed by : [address] [address] Blood 06/02/2024 1:08 PM CDT 06/02/2024 1:12 PM CDT Duke Leung Digital Message Display LAB BLOOD ORDERABLES Final R esult [facility]4 [facility] Department of Laboratories [place], [place] [id number] * (ABNORMAL) CEA (06/02/2024 1:08 PM CDT) CEA 50.7(H) <=5.0 ng/mL Comment: Interpretive Data: Reference Range: Non-Smokers: 0.0 5.0 ng/mL Smokers: 0.0 6.5 ng/mL The Oswaldo CEA assay procedure was used. Results from different manufacturers or methods may not be comparable. Serial testing should be performed using the same method. Current interpretive data was last revised 2022. Testing performed by: [address] [address] Blood 06/02/2024 1:08 PM CDT 06/02/2024 1:36 PM CDT Duke Leung DO LAB BLOOD ORDERABLES Final R esult [facility] [address] [facility] Department [place] [address] * Comprehensive metabolic panel (06/02/2024 1:08 PM CDT) Sodium 140 135 - 145 mmol/L Comment:Testing performed by : [address] [address] Potassium, pl 3.8 3.3 - 4.9 mmol/L [facility] Comment:Testing performed by : [address] [address] Chloride 108 97 - 110 mmol/L [facility] Comment:Testing performed by : [address] [address] CO2 24 22 - 32 mmol/L [facility] Comment:Testing performed by : [address] [address] Anion gap 8 2 - 15 mmol/L [facility] Comment:Testing performed by : [address] [address] BUN 16 6 - 25 mg/dL [facility] Comment:Testing performed by : [address] [address] Creatinine 0.80 0.80 - 1.30 mg/dL [facility] Comment:Testing performed by : [address] [address] Glucose 111 70 - 199 mg/dL [facility] [...] was last revised 2022. Testing performed by: [address] [address] Calcium 8.8 8.5 - 10.3 mg/dL [facility] Comment:Testing performed by : [address] [address] Bilirubin, total 0.6 0.1 - 1.2 mg/dL [facility] Comment:Testing performed by : [address] [address] Protein, pl 7.1 6.5 - 8.5 g/dL MADHAVI Comment:Testing performed by : [address] [address] Albumin 4.0 3.5 - 5.0 g/dL MADHAVI Comment:Testing performed by : [address], [address] Alk phos 86 40 - 130 Units/L MADHAVI Comment:Testing performed by : [address] [address] ALT 27 7 - 55 Units/L MADHAVI Comment:Testing performed by : [address] [address] AST 33 10 - 50 Units/L MADHAVI Comment:Testing performed by : [address] [address] Blood 06/02/2024 1:08 PM CDT 06/02/2024 1:12 PM CDT Duke Leung DO LAB BLOOD ORDERABLES Final R esult Performing Organization Address City/State/[facility] Co de Phone Number MADHAVI [address] [facility] Department [place] [address] from Last 3 Months Insurance MEDICARE [facility] MEDICARE SUPPLEMENT MEDICARE [employer] MEDICARE SUPPLEMENT [facility] MEDICARE Advance Directives For more information, please contact: [phone] * Full Code (Latest Code Status on File) Date Activated Date Inactivated Comments 07/15/2023 10:51 AM 07/16/2023 5:19 AM Care Teams Magnetic Prospecting Supervisor Relationship Specialty Start Date End Date Julian Quevedo MD [address] [place] [address] PCP - General Family Medicine 06/30/24 Duke Leung DO [address] [facility], [address] [place] [address] Medical Oncologist/Peritoneal Dialysis Registered Nurse Hematology and Oncology 01/27/23
--- OUTSIDE RECORDS SUMMARY | 2024-08-22 21:20 | XMS_ITS | Clinical Summary ---
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 Gender Identity Not on file Sexual Orientation Not on file Last Filed Vital Signs Vital Sign Reading Time Taken Comments Blood Pressure 152/73 05/30/2022 2:02 PM CIVIL ENGINEERING DRAFTSPERSON Pulse 66 05/30/2022 1:59 PM CIVIL ENGINEERING DRAFTSPERSON Temperature 36.3 C (97.4 F) 05/30/2022 1:59 PM CIVIL ENGINEERING DRAFTSPERSON Respiratory Rate 10 05/30/2022 1:59 PM CIVIL ENGINEERING DRAFTSPERSON Oxygen Saturation 100% 05/30/2022 1:59 PM CIVIL ENGINEERING DRAFTSPERSON Inhaled Oxygen Concentration - - Weight 71.2 kg (157 lb) 05/30/2022 1:59 PM CIVIL ENGINEERING DRAFTSPERSON Height 167.6 cm (5' 6) 05/01/2022 2:55 PM CIVIL ENGINEERING DRAFTSPERSON Body Mass Index 25.34 05/01/2022 2:55 PM CIVIL ENGINEERING DRAFTSPERSON Plan of Treatment Health Maintenance Due Date Last Done Comments DTAP/TDAP/TD VACCINES (1 - Tdap) 07/17/1959 PNEUMOCOCCAL VACCINE 50+ YEARS (1 of 1 - PCV) 07/17/18 90 ZOSTER VACCINE (1 of 2) 07/17/1989 RSV VACCINE (60+ or ) (1 - 1-dose 75+ series) 07/17/2014 INFLUENZA VACCINE (#1) 2023 Insurance [facility] SUPP [facility] MEDICARE PART A AND B
--- OUTSIDE RECORDS SUMMARY | 2024-08-22 21:20 | XMS_ITS | Continuity of Care Document ---
Author Organization [facility] Address [address] [facility] [place] [address] [place] [address] Phone Care Team Providers Care Microsoft Net Developer Name Role Phone Gabino Laughlin MD Unavailable [...] Diagnoses Date Provider Providers Copied on Encounter [facility], [address] [place], [id number], [place] tel:[phone] [facility] No Information 5 Truman Lloyd. [address], [place], [id number] , [place]. tel:[phone] Referring Provider: Gabino Laughlin, [address] [place], [place], [id number]. tel:[phone] OFFICE/OUTPA TIENT VISIT, EST [facility], [address] [place], [id number], [place] tel:[phone] [facility] achileus tendon (chief complaint)Hypot hyroidism (chief complaint)HTN (chief complaint)colon CA (chief complaint) Achilles tendon ruptureUnspeci fied hypothyroidism Unspecified essential hypertension 5 Truman Lloyd. [address] [facility] [place], [address] , [place]. tel:[phone] Referring Provider: Gabino Laughlin, [address], [place], [place], [id number]. tel:[phone] OFFICE/OUTPA TIENT VISIT, [facility], [address], [place], [place], [id number], [place] tel:[phone] [facility] sinus allergy (chief complaint) Dietary surveillance and counselingOthe r specified acquired hypothyroidism Allergic rhinitis, cause unspecifiedHyp ertension, Unspecified 2 Truman Lloyd. [address], [place], [place], [address] , [place]. [phone] Referring Provider: Gabino Laughlin [address] [facility] [address], [place], [place], [id number]. tel:[phone] OFFICE/OUTPA TIENT VISIT, [facility], [address], [place], [place], [address], [place] tel:[phone] [facility] hyperlipidemia (chief complaint)hypot hyroidism (chief complaint)vitam in D (chief complaint)hyper tension (chief complaint) Dietary surveillance and counselingHypo thyroidismOthe r and unspecified hyperlipidemia Unspecified vitamin d deficiencyHype rtension, Unspecified 2 Truman Lloyd. [address], [address], [place], [place], [id number] , [place]. [phone] Family History Family Member Type Diagnosis Age [...] Nunn [address] [place], [phone] Ordered: Referrals: Joe Nunn. Evaluate and treat [...] Prescribed Instructions Date Instruction Additional Infor eugenia Dietary counseling Related to Di etary surveillance counseling Decrease caloric intake Related to Dietary surveillance counseling Physical activity counseling Rel ated to Dietary surveillance counseling Decrease caloric intake Related to Dietary surveillance counseling Assessments Type Assessment Date No Information
--- OUTSIDE RECORDS SUMMARY | 2024-08-22 21:20 | XMS_ITS | Encounter Summary ---
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 Gender Identity Not on file Sexual Orientation Not on file Occupation Industry Job Start Date Job End Date Retired Not on file Not on file Not on file documented as of this encounter Plan of Treatment Not on file documented as of this encounter Visit Diagnoses Not on filedocumented in this encounter Care Teams Scrubber System Attendant Relationship Specialty Start Date End Date Julian Quevedo MD [address] [facility] [address] [place] [address] PCP - General Family Medicine 06/30/24 Duke Leung DO [address] [place] [address] MEDICAL ONCOLOGY, [facility] [address] [place] [address] Medical Oncologist/Research Greenhouse Supervisor Hematology and Oncology 01/27/23 documented as of this encounter
[2024-08-22] MEDS: SODIUM CHLORIDE 0.9% IV 1,000 ML 999 ML IV CONT ×3 (21:23→23:29)
[2024-08-22] MEDS: ACETAMINOPHEN 500 MG TABLET 1000 MG PO (21:25)
[2024-08-22 21:27] LABS: Alanine Aminotransferase 224 U/L (6-50); Albumin Level 3.8 g/dL (3.5-5.1); Alkaline Phosphatase 247 U/L (38-126); Anion Gap 9 mmol/L (4-12); Aspartate Amino Transferase 499 U/L (17-59); Bilirubin,Total 1.1 mg/dL (0.2-1.3); Blood Urea Nitrogen 26 mg/dL (9-20); Calcium 8.9 mg/dL (8.4-10.2); Carbon Dioxide 23 mmol/L (22-30); Chloride 108 mmol/L (98-107); Estimated CRCL calculation 40 ml/min; Estimated Glomerular Filt Rate 60; Glucose 82 mg/dL (65-110); Lipase 64 U/L (23-300); Potassium 3.2 mmol/L (3.4-5.0); Sodium 140 mmol/L (137-145)
[2024-08-22 21:28] LABS: INR 1.2; Prothrombin Time 15.7 Seconds (11.1-14.7); White Blood Count 0.9 K/mm3 (4.5-10.0)
[2024-08-22 21:29] LABS: Partial Thromboplastin Time 31.4 Seconds (22.3-36.8)
[2024-08-22 21:39] LABS: Troponin I < 0.012 ng/mL (0.000-0.034)
[2024-08-22 21:49] LABS: Band Neutrophils Percent 17 % (0-6); Neutrophils Absolute Manual 0.73 K/mm3 (1.3-6.7); Neutrophils Percent Manual 65 % (46-73); Total Cells Counted 100
[2024-08-22 22:08] LABS: Lymphocytes Absolute Manual 0.14 K/mm3 (1.1-4.5); Lymphocytes Percent Manual 16 % (18-44); Monocytes Absolute Manual 0.01 K/mm3 (0.1-0.90); Monocytes Percent Manual 2 % (3-9); Platelet Estimate Slightly Decreased (Adequate); Schistocytes None Seen
[2024-08-22] MEDS: CEFEPIME 2 GM/NS 50 ML 2 GM/50 ML BAG IVPB (22:33)
[2024-08-22 23:03] LABS: CRP 4.9 mg/dL (<1.0); Creatine Kinase 82 U/L (55-170)
[2024-08-22 23:08] LABS: Lactic Acid Reflex 4.1 mmol/L (0.7-2.0)
[2024-08-22 23:18] LABS: Influenza A QL RT-PCR Negative (Negative); Influenza B QL RT-PCR Negative (Negative); RSV RNA, RT-PCR Negative (Negative); SARS-CoV-2 RNA PCR Negative (Negative)
[2024-08-22] MEDS: VANCOMYCIN 1,750 MG/NS 500 ML 1,750 MG/500 ML BAG 250 MG IVPB (23:18)
[2024-08-22] MEDS: SODIUM CHLORIDE 0.9% IV 100 ML 999 ML IV CONT (23:19)
[2024-08-22 23:58] LABS: MRSA (PCR) NOT DETECTED (NOT DETECTE)
[2024-08-23] VITALS (68 sets, daily range): BP systolic 66–139; BP diastolic 47–82; PULSE 65–87; RESP 15–29; TEMP 28.3–37.2; O2SAT 93–100; BMI 24.6
--- NOTE | 2024-08-23 00:09 | PC.NURSE ---
Pt assisted to bathroom by this RN for urine sample. Pt unable to urinate.
[2024-08-23 00:39] LABS: Reflex Lactic Acid Yes or No Add Lactic
[2024-08-23 01:14] LABS: Lactic Acid 3.9 mmol/L (0.7-2.0)
[2024-08-23 01:33] LABS: Add Urine Microscopic? YES; Appearance Urine Cloudy (Clear); Bacteria Urine None Seen /hpf; Bilirubin Urine 1+ (Negative); Blood Urine Negative (Negative); Color Urine Dark Yellow (Yellow); Glucose Urine UA Negative (Negative); Ketones Urine Trace mg/dL (Negative); Leukocyte Esterase Ur Trace LEU/UL (Negative); Need Manual Microscopic Reviewed; Nitrate Urine Negative (Negative); Non Pathogenic Casts >20; Protein Urine 2+ mg/dL (Negative); RBC Urine 0-2 /hpf (0-2); Specific Grav Ur 1.025 (1.001-1.035); Squamous Epithelial Cell Urine Occasional /hpf (Few); WBC Urine 0-5 /hpf (0-3); pH Urine 5.5 (5.0-9.0)
[2024-08-23] MEDS: NOREPINEPHRINE 8 MG/D5W 250 ML 8 MG/250 ML BAG 9.38 MG IV CONT ×2 (04:46→07:00)
[2024-08-23 06:29] LABS: Estimated CRCL calculation 36 ml/min; Estimated Glomerular Filt Rate 53
[2024-08-23] MEDS: SODIUM CHLORIDE 0.9% IV 1,000 ML 125 ML IV CONT (06:47)
--- NOTE | 2024-08-23 07:32 | ADMGEN ---
This patient, Sterling Bryant, was admitted to Intensive Care Unit-7. Patient/family oriented to hospital policies and general routines including ID bracelet, bed and alarms, visiting hours, pain management, procedures, bathroom and other care routines, personal items, smoking policy, room service/diet, and visiting hours. Information on how to activate the Rapid Response Team has been discussed. Patient/Family are encouraged to report perceived risks to care and to ask questions if they do not understand what they are told or what they should do. Report received at 0650 from LD Stout. Patient arrived without issue via stretcher with sonTheodore and LD Stout at bedside at 0700.
--- NOTE | 2024-08-23 07:57 | P.HP_ITS ---
H&P: HPI History of Present Illness Date/Time: 08/23/24 07:57 Chief Complaint: Rigors Narrative: 84yo male with CAD and colon cancer currently undergoing chemotherapy treatment who is here for fever, shaking and chills. 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 He is being followed by Dr Leung. He was on Lonsurf but was having issues with anemia so recently changed to oral fruquintinib July 18 (21 days on and 7 days off). He underwent a laparoscopic cholecystectomy on 02/09/23. He began to have right flank intermittently about 7 months ago. He tolerated the fruquintinib but was held on August 02- due to having teeth extraction. His last dose of fruquintinib was on August 10. He developed more continuous right flank pain on August 07 and was given narcotics and anti-inflammatory agents (Voltaren) with some benefit. He had a buttock rash for about 1 month and son has been applying an anti-fungal cream with benefit for the past 4-5 days. No fevers, chills, cough, urinary symptoms, lower abdominal pain, back pain, mouth pain or swelling, odynophagia, dysphagia, nausea/vomiting, or diarrhea during this time. He has chronic constipation controlled with miralax. He is hard of hearing. He has developed dysguesia that has caused decreased appetite but overall his weight has been stable. On the evening prior to admission, he developed shaking chills, fevers and chills. He presented to the ED for an evaluation. In the ED, he had fever to 101.4, HoTN with BP 68/53 and tachycardia (109). He was not hypoxic. WBC 900 with ANC 738. Lactic 4.1. LFTs are elevated. CRP 4.9. MRSA nasal swab negative. Influenza, RSV and COVID PCR negative. BCx collected. CXR showing bibasilar atelectasis. CT A/P showing a 6.2 x 2.1 x 5.0 cm abscess along the inferior margin of the right hepatic lobe, possibly related to a dropp ed gallstone with suspected extension into the inferior hepatic lobe with a 2.2 cm fluid attenuation area in the liver in this region, which is new from prior exam. Also noted is a 3.3 cm distal AAA, minimal pleural effusions with mild bibasilar pulmonary edema/atelectasis and a 9 mm nonobstructing left renal stone. He was treated with acetaminophen, appropriate amount of IV fluids for sepsis protocol, cefepime and Vancomycin. Levophed started for septic shock. He was admitted to the ICU for further care. 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 Leung. Cholelithiasis Bilateral inguinal hernia Achilles tendon tear Surgical History Surgical History (Updated 08/23/24 @ 08:02 by Yaya Hoffmann MD) Hx laparoscopic cholecystectomy 02/09/23 Status post dilation of urethral narrowing 11/03/23 History of cardiac catheterization 07/2022 with findings of coronary artery disease with recommendation of medical therapy due to high risk for PCI, on dual anti-platelet therapy History of lithotripsy (04/15/19) History of partial colectomy (04/09/09) Laparoscopic sigmoid colectomy for sigmoid adenocarcinoma. History of colonoscopy with polypectomy History of bilateral inguinal hernia repair (05/30/16) History of Achilles tendon repair (11/29/14) Right. History of colon resection (04/23/22) Hand assisted laparoscopic right hemicolectomy with ileocolic anastomosis, small bowel resection with side to side anastomosis, and extensive adhesiolysis. Family History Family History (Updated 08/23/24 @ 10:11 by Yaya Hoffmann MD) Sibling Throat cancer Other Family history non-contributory Social History Social History (Updated 08/23/24 @ 10:13 by Yaya Hoffmann MD) Social History: Patient smoked 1/2ppd x 20yrs but quit 45yrs ago. Hx of heavy alcohol use when he was young but no alcohol currently. No hx of drug use including IVDU. Lives at home with his . No pets. Surrogate medical decision maker: Theodore Bryant (son). Code status: Full code. Smoking packs per day: 0.5 Smoking cigarettes per day: 10.0 Years smoked: 20 Smoking pack-years: 10.00 Smoking status: Former smoker Tobacco type: cigarettes Second hand tobacco smoke exposure: No Smoking end date: 03/23/79 Additional smoking assessment comments: SON STATES PT STOPPED SMOKING ABOUT 45YRS AGO Alcohol intake: current Drinks per week: 1 Alcohol use details: RARELY - FEW TIMES A YEAR Substance use: never Substance use type: does not use Do You Feel Safe in your Home?: Yes Lack of Transportation: No Lack of Food: Never True Current Housing: I Have Housing Concerned About Future Housing: Decline to Answer Difficulty Paying Gas/Electric Bills: Decline to Answer Difficulty Paying for Meds: Decline to Answer Currently Unemployed: Decline to Answer Education: High School Diploma/GED Difficulty w/ Childcare or Family Care: Decline to Answer Living arrangements: with family Additional living arrangements comments: Occupation/Education: retired 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 Spiritual care concerns: No Meds Home Medications and Allergies Home Medications ?Medication ?Instructions ?Recorded ?Confirmed ?Type clopidogrel 75 mg tablet 75 mg PO DAILY 01/20/23 08/23/24 History rosuvastatin 20 mg tablet 20 mg PO DAILY 01/20/23 08/23/24 History metoprolol succinate 50 mg 50 mg PO DAILY 02/06/23 08/23/24 History tablet,extended release 24 hr tamsulosin 0.4 mg capsule See Rx Instructions .Route 02/11/23 08/23/24 Rx .COMPLEX #90 caps tramadol 50 mg tablet 50 mg PO Q6H PRN pain #20 tabs 11/03/23 08/23/24 Rx triamcinolone acetonide 0.1 % 1 applic topical BID #80 grams 08/04/24 08/23/24 Rx topical cream fruquintinib 5 mg capsule 5 mg PO .COMPLEX Chemotherapy 08/23/24 08/23/24 History (Fruzaqla) Allergies Allergy/AdvReac Type Severity Reaction Status Date / Time No Known Allergies Allergy Unknown Verified 08/22/24 20:30 Vital Signs Vital Signs - 24 hr 08/22/24 20:42 08/22/24 20:59 08/22/24 21:00 Temperature 98.1 F Pulse Rate 109 H 98 99 Respiratory Rate 17 15 17 Blood Pressure 76/43 L Pulse Oximetry 99 98 97 Oxygen Delivery Room Air 08/22/24 21:01 08/22/24 21:02 08/22/24 21:15 Temperature 101.4 F H Pulse Rate 108 H 98 94 Respiratory Rate 17 16 18 Blood Pressure 79/55 L 79/55 L 68/53 L Pulse Oximetry 97 97 98 Oxygen Delivery 08/22/24 21:16 08/22/24 21:28 08/22/24 21:30 Temperature Pulse Rate 93 99 91 Respiratory Rate 14 18 21 H Blood Pressure 88/55 L 84/66 L Pulse Oximetry 99 Oxygen Delivery 08/22/24 21:31 08/22/24 21:32 08/22/24 21:45 Temperature 99.3 F Pulse Rate 91 92 92 Respiratory Rate 17 15 15 Blood Pressure 84/66 L 103/67 Pulse Oximetry 99 74 L Oxygen Delivery 08/22/24 21:46 08/22/24 22:00 08/22/24 22:01 Temperature Pulse Rate 92 93 92 Respiratory Rate 19 17 19 Blood Pressure 101/65 Pulse Oximetry 74 L 99 99 Oxygen Delivery 08/22/24 22:15 08/22/24 22:30 08/22/24 22:31 Temperature Pulse Rate 91 92 92 Respiratory Rate 17 16 16 Blood Pressure 96/66 L Pulse Oximetry 98 99 Oxygen Delivery 08/22/24 23:00 08/22/24 23:27 08/22/24 23:27 Temperature 98.6 F Pulse Rate 89 91 90 Respiratory Rate 15 20 21 H Blood Pressure 82/60 L 82/60 L Pulse Oximetry 98 99 Oxygen Delivery 08/22/24 23:28 08/22/24 23:30 08/22/24 23:31 Temperature Pulse Rate 92 89 88 Respiratory Rate 21 H 18 19 Blood Pressure 80/60 L Pulse Oximetry 95 96 96 Oxygen Delivery 08/22/24 23:46 08/22/24 23:50 08/23/24 00:00 Temperature Pulse Rate 87 86 85 Respiratory Rate 18 19 18 Blood Pressure 75/61 L 80/59 L Pulse Oximetry 96 96 95 Oxygen Delivery 08/23/24 00:01 08/23/24 00:21 08/23/24 00:25 Temperature Pulse Rate 87 84 84 Respiratory Rate 20 19 18 Blood Pressure 78/59 L 74/59 L Pulse Oximetry 95 95 98 Oxygen Delivery 08/23/24 00:26 08/23/24 00:30 08/23/24 00:31 Temperature Pulse Rate 82 83 83 Respiratory Rate 18 19 19 Blood Pressure 74/61 L Pulse Oximetry 96 100 99 Oxygen Delivery 08/23/24 00:45 08/23/24 00:56 08/23/24 01:00 Temperature Pulse Rate 82 81 82 Respiratory Rate 19 20 17 Blood Pressure 71/56 L 72/56 L 72/55 L Pulse Oximetry 100 100 100 Oxygen Delivery 08/23/24 01:51 08/23/24 02:00 08/23/24 02:15 Temperature Pulse Rate 78 81 Respiratory Rate 19 23 H Blood Pressure 72/58 L 82/62 L 77/56 L Pulse Oximetry 95 96 Oxygen Delivery 08/23/24 02:30 08/23/24 02:37 08/23/24 02:45 Temperature Pulse Rate 76 74 73 Respiratory Rate 19 20 19 Blood Pressure 70/49 L 71/59 L 66/54 L Pulse Oximetry 97 96 Oxygen Delivery 08/23/24 02:46 08/23/24 02:48 08/23/24 04:15 Temperature Pulse Rate 74 73 68 Respiratory Rate 19 19 22 H Blood Pressure 73/53 L 82/62 L Pulse Oximetry 96 96 100 Oxygen Delivery 08/23/24 04:30 08/23/24 04:45 08/23/24 04:46 Temperature Pulse Rate 70 68 68 Respiratory Rate 20 18 Blood Pressure 74/54 L 78/57 L 78/57 L Pulse Oximetry 98 98 Oxygen Delivery 08/23/24 05:00 08/23/24 05:24 08/23/24 05:37 Temperature Pulse Rate 65 76 78 Respiratory Rate 20 18 Blood Pressure 108/58 L 123/60 109/63 Pulse Oximetry 97 96 Oxygen Delivery 08/23/24 05:39 08/23/24 05:42 08/23/24 05:45 Temperature Pulse Rate 83 81 74 Respiratory Rate 18 19 Blood Pressure 78/47 L 96/57 L 93/53 L Pulse Oximetry 95 95 Oxygen Delivery 08/23/24 05:45 08/23/24 05:46 08/23/24 05:48 Temperature Pulse Rate 75 72 72 Respiratory Rate 19 18 19 Blood Pressure 93/53 L 100/63 112/65 Pulse Oximetry 96 97 96 Oxygen Delivery 08/23/24 05:51 08/23/24 05:54 08/23/24 05:58 Temperature Pulse Rate 65 77 82 Respiratory Rate 17 17 15 Blood Pressure 107/64 123/64 116/60 Pulse Oximetry 96 95 96 Oxygen Delivery 08/23/24 05:59 08/23/24 06:00 08/23/24 06:01 Temperature Pulse Rate 76 75 71 Respiratory Rate 22 H 21 H 29 H Blood Pressure 117/64 Pulse Oximetry 96 95 95 Oxygen Delivery 08/23/24 06:03 08/23/24 06:06 08/23/24 06:09 Temperature Pulse Rate 75 76 74 Respiratory Rate 17 17 17 Blood Pressure 111/66 117/70 110/61 Pulse Oximetry 94 95 95 Oxygen Delivery 08/23/24 06:12 08/23/24 06:15 08/23/24 06:16 Temperature Pulse Rate 73 73 74 Respiratory Rate 17 18 16 Blood Pressure 116/56 L 102/63 Pulse Oximetry 95 94 95 Oxygen Delivery 08/23/24 06:18 08/23/24 06:21 08/23/24 06:24 Temperature Pulse Rate 73 75 77 Respiratory Rate 17 16 17 Blood Pressure 121/66 113/65 113/67 Pulse Oximetry 95 95 95 Oxygen Delivery 08/23/24 06:27 08/23/24 06:30 08/23/24 06:31 Temperature Pulse Rate 76 74 79 Respiratory Rate 21 H 18 17 Blood Pressure 109/65 117/61 Pulse Oximetry 94 95 95 Oxygen Delivery 08/23/24 06:33 08/23/24 06:43 08/23/24 06:45 Temperature Pulse Rate 78 75 71 Respiratory Rate 18 22 H 19 Blood Pressure 110/61 114/82 127/82 Pulse Oximetry 95 95 96 Oxygen Delivery 08/23/24 07:00 08/23/24 07:30 Temperature Pulse Rate 67 72 Respiratory Rate Blood Pressure 80/56 L 139/77 Pulse Oximetry Oxygen Delivery Exam Narrative: Tm 101.4 98.6 139/77 72 19 96% ra Gen - chronically ill appearing male in no acute respiratory distress who is nontoxic-appearing lying semi recumbent in bed HEENT - normocephalic. Atraumatic. Pupils equal round and reactive. Extraocular motions intact. Sclera clear and anicteric. Nares patent. Oropharynx was clear. No teeth issues. No oral lesions. Moist mucous membranes. Tongue was midline. Palate mary symmetrically. No facial asymmetry. Neck - neck was supple. No dominant thyromegaly or masses. 2+ carotid upstrokes without bruits. No anterior cevical, posterior cervical, supraclavicular or axillary adenopathy. Chest - L>R bibasilar inspiratory crackles o/w clear. nml RR CV - heart was regular rate and rhythm. S1-S2. No murmurs gallops or rubs. Abd - abdomen was soft. Nontender. Nondistended. Positive bowel sounds. No organomegaly or masses. Denies RUQ pain. Ext - no clubbing, cyanosis or edema. 2+ DP pulses bilaterally. Neuro - patient is alert and oriented x4. Strength is 5/5 in both upper and lower extremities. Cranial nerves 2-12 are intact. Speech is clear. Psych - normal mood and affect. Patient is pleasant and cooperative. Skin - warm and dry. Normal cap refill. Crcular mildly erythematous patch around the top part of the buttock crease with sparing in crease. Hyperpigmented area caudal to the rash without induration or erythema. H&P: Results Labs Labs: Short CBC 08/22/24 Range/Units 21:03 WBC 0.9 L* (4.5-10.0) K/mm3 Hgb 12.0 L (14.0-18.0) g/dL Hct 37.4 L (42.0-52.0) % Plt Count 146 L (150-375) k/mm3 BMP 08/22/24 08/23/24 21:03 06:00 Sodium 140 Potassium 3.2 L Chloride 108 H Carbon Dioxide 23 BUN 26 H D Creatinine 1.15 1.29 Glucose 82 Calcium 8.9 Cardiac Enzymes 08/22/24 08/22/24 08/22/24 Range/Units 21:03 22:27 22:27 Total Creatine Kinase Cancelled 82 Troponin I < 0.012 (0.000-0.034) ng/mL Liver Function 08/22/24 Range/Units 21:03 Total Bilirubin 1.1 (0.2-1.3) mg/dL AST 499 H (17-59) U/L ALT 224 H (6-50) U/L Alkaline Phosphatase 247 H (38-126) U/L Albumin 3.8 (3.5-5.1) g/dL Urine 08/23/24 Range/Units 00:22 Urine Color Dark yellow (Yellow) Urine Appearance Cloudy H (Clear) Urine pH 5.5 (5.0-9.0) Ur Specific [place] 1.025 (1.001-1.035) Urine Protein 2+ H (Negative) mg/dL Urine Glucose (UA) Negative (Negative) mg/dL Assessment and Plan Assessment and plan (1) Septic shock: Code(s): A41.9 - Sepsis, unspecified organism; R65.21 - Severe sepsis with septic shock Status: Acute Assessment and Plan: Patient with neutropenic fever with HoTN present on admission. Lactic acid was 4.1. CT A/P showing a 6.2 x 2.1 x 5.0 cm abscess along the inferior margin of the right hepatic lobe, possibly related to a dropped gallstone with suspected extension into the inferior hepatic lobe with a 2.2 cm fluid attenuation area in the liver in this region CT Ch/A/P 05/22/23 does show a dropped GS in the same area. Cass patient had a dropped GS from Jan 2023 surgery with inflammation causing intermittent right flank pain. This may have become secondarily infected due to immunosuppressive medications and recent teeth extraction. BCx collected Vanco and Cefepime started in ED. Cefepime changed to Meropenem today. General Surgery consulted. Levophed at 4mcg/min. Plan to place PICC line today. Wean Levophed to keep MAP>65. Follow up on BCx. Probably will need drain placement and ultimately surgery to remove GS. (2) Neutropenia with fever: Code(s): D70.9 - Neutropenia, unspecified; R50.81 - Fever presenting with conditions classified elsewhere Status: Acute Assessment and Plan: WBC 900 with ANC 738. Neutropenic precautions. Oncology consult Hgb at 12. Has chronic anemia. Monitor HH. Plt count slightly low but no hx of thrombocytopenia. Follow. As above. (3) Intra-abdominal abscess: Code(s): K65.1 - Peritoneal abscess Status: Acute Assessment and Plan: CT A/P showing a 6.2cm abscess along the inferior margin of the right hepatic lobe with extension into the inferior hepatic lobe. Again noted is the dropped gallstone in this area. CT Ch/A/P 05/22/23 does show a dropped GS in this same area. Cass patient had a dropped GS from Jan 2023 GB surgery with inflammation causing intermittent right flank pain. This may have become secondarily infected due to immunosuppressive medications and recent teeth extraction. As above. 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 He is being followed by Dr Leung. He was on Lonsurf but was having issues with anemia so recently changed to oral fruquintinib July 18. Request records. As above (5) Elevated LFTs: Code(s): R79.89 - Other specified abnormal findings of blood chemistry Status: Acute Assessment and Plan: LFTs elevated felt related to above. Follow for resolution. (6) Rash: Code(s): R21 - Rash and other nonspecific skin eruption Status: Acute Assessment and Plan: Appears to have fungal buttock rash. Continue anti-fungal. (7) Coronary artery disease: Code(s): I25.10 - Atherosclerotic heart disease of [place] coronary artery without angina pectoris Status: Acute Assessment and Plan: [facility] in July 2022 with high grade stenosis to the LAD with EF 50-55%. Medical therapy was recommended but consider PCI that would be high risk. Home medications include: Plavix, metoprolol and crestor. Holding these home meds for now. (8) Abdominal aortic aneurysm: Code(s): I71.40 - Abdominal aortic aneurysm, without rupture, unspecified Status: Acute Assessment and Plan: CT in May 2022 showing AAA 3.[address] A/P here showing AAA at 3.3cm and stable. Defer to PCP for continued monitoring. Plan Code status - full DVT prophylaxis - SCDs
[2024-08-23 08:27] LABS: MRSA (PCR) NOT DETECTED (NOT DETECTE)
--- NOTE | 2024-08-23 08:58 | PC.NURSE ---
I spoke with Dr. Nobles about PICC placement on this patient without having any blood culture results back at this time. Per Dr. Nobles it is OK to proceed with line placement due to need of access.
--- NOTE | 2024-08-23 09:42 | P.CONIN_ITS ---
Assessment and Plan Assessment and plan (1) Septic shock: Code(s): A41.9 - Sepsis, unspecified organism; R65.21 - Severe sepsis with septic shock Status: Acute Assessment and Plan: Septic shock secondary to sepsis from right upper quadrant intra abdominal abscess in the setting of neutropenia from chemotherapy. Patient has a dropped gallstone at that location and also had dental work done few weeks ago which could have led to seeding of the stone. Case discussed with Radiology and General surgery Neurosurgery recommends ultrasound-guided drain placement to drain abscess at this time Blood cultures ordered and pending Change cefepime to meropenem to cover for anaerobes Continue vancomycin Continue IV fluids but add a conservative rate as patient has history of congestive heart failure Continue Levophed titration to maintain mean arterial pressure (2) Coronary artery disease: Code(s): I25.10 - Atherosclerotic heart disease of tetlin coronary artery without angina pectoris Status: Acute Assessment and Plan: History of coronary disease which was being medically managed. Beta-faraz is on hold due to sepsis shock shock Plavix and aspirin held for invasive procedures (3) Thrombocytopenia: Code(s): D69.6 - Thrombocytopenia, unspecified Status: Acute Assessment and Plan: Secondary to chemotherapy and sepsis. Monitor (4) Intra-abdominal abscess: Code(s): K65.1 - Peritoneal abscess Status: Acute (5) Right sided abdominal pain: Code(s): R10.9 - Unspecified abdominal pain Status: Acute (6) Kidney stones: Code(s): N20.0 - Calculus of kidney Status: Acute Assessment and Plan: Nonobstructing kidney stone. Monitor (7) Urethral stricture: Code(s): N35.919 - Unspecified urethral stricture, male, unspecified site Status: Acute Assessment and Plan: Patient has history of urethral stricture status post dilation Avoid Lima insertion as long as patient is able to urinate (8) Anemia: Qualifiers: Anemia type: iron deficiency Iron deficiency anemia type: chronic blood loss Qualified Code(s): D50.0 - Iron deficiency anemia secondary to blood loss (chronic) Code(s): D64.9 - Anemia, unspecified Status: Acute Assessment and Plan: Patient has chronic anemia. Hemoglobin appears close to baseline. Monitor (9) Neutropenia with fever: Code(s): D70.9 - Neutropenia, unspecified; R50.81 - Fever presenting with conditions classified elsewhere Status: Acute Assessment and Plan: Neutropenia precautions Consult oncology for recommendations on Neupogen (10) Colon cancer: Code(s): C18.9 - Malignant neoplasm of colon, unspecified Status: Acute Assessment and Plan: History of colon cancer status post right hemicolectomy and is currently on F ruquintinib p.o. which will be held. Will try to obtain records from [facility] (11) Pedal edema: Code(s): R60.0 - Localized edema Status: Resolved Assessment and Plan: Mild bilateral pedal edema. Cautious IV fluids per sepsis Plan DVT prophylaxis -SCD. Will start anticoagulation once patient undergoes drain placement Nutrition - NPO Code Status -patient's son stated that patient is Full Code but would not want to be on mechanical ventilation for prolonged period of time. Patient's son updated at bedside Discuss case with Internal Medicine, General surgery, intervention Radiology Total Critical Care Time - 45 minutes Due to a high probability of clinically significant, life threatening deterioration, the patient required my highest level of preparedness to intervene emergently and I personally spent this critical care time directly and personally managing the patient. This critical care time included obtaining a history; examining the patient; pulse oximetry; ordering and review of studies; arranging urgent treatment with development of a management plan; evaluation of patient's response to treatment; frequent reassessment; and discussions with other providers. It was exclusive of separately billable procedures and treating other patients and teaching time. Please see Assessment and Plan section and the rest of the note for further information on patient assessment and treatment Bone Drier Operator Consult Note Consult date: 08/23/24 Reason for consult: Sepsis, abdominal abscess HPI: 84 yo code can male with CAD and colon cancer status post hemicolectomy in the past currently undergoing chemotherapy treatment with p.o. Fruquintinib presented yesterday to ER with chief complaint of chills and rigors. Patient was seen with son doing the translation. 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 He is being followed by Dr Leung. He was on Lonsurf but was having issues with anemia so recently changed to oral fruquintinib July 18 (21 days on and 7 days off). He underwent a laparoscopic cholecystectomy on 02/09/23. And follow- up CT scan shows a dropped gallstone in the vicinity.. He has been having intermittent right flank pain for many months. But has became severe in recent past as per his son He tolerated the fruquintinib but was held recently for a teeth extraction procedure. His last dose of fruquintinib was on August 10. He developed more continuous right flank pain on August 07 and was given Ultram and anti- inflammatory agents (Voltaren) by his oncologist with some benefit. He denied any fever, cough, urinary symptoms, lower abdominal pain, back pain, mouth pain or swelling, odynophagia, dysphagia, nausea/vomiting. He normally is constipated but had 1 loose bowel movement yesterday as per patient's son. Yesterday he started having chills and rigors which were continuous hence patient's son brought him to the hospital. Other systems were reviewed and were negative Workup in the ER showed fever with temperature of 101.4, BP 68/53 and tachycardia (109). WBC 900 with ANC 738. Lactic 4.1. LFTs are elevated. CRP 4.9. MRSA nasal swab negative. Influenza, RSV and COVID PCR negative. CXR showing bibasilar atelectasis. CT A/P showing a 6.2 x 2.1 x 5.0 cm abscess along the inferior margin of the right hepatic lobe, possibly related to a dropped gallstone with suspected extension into the inferior hepatic lobe with a 2.2 cm fluid attenuation area in the liver in this region, which is new from prior exam. Also noted is a 3.3 cm distal AAA, minimal pleural effusions with mild bibasilar pulmonary edema/atelectasis and a 9 mm nonobstructing left renal stone. He was treated with acetaminophen, appropriate amount of IV fluids for sepsis protocol, cefepime and Vancomycin. Levophed started for septic shock. He was admitted to the ICU for further care. This morning he feels slightly better and denies any new complaints. 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 Leung. Cholelithiasis Bilateral inguinal hernia Achilles tendon tear Surgical History Surgical History (Updated 08/23/24 @ 10:51 by JACK Rahman) Hx laparoscopic cholecystectomy 02/09/23 Status post dilation of urethral narrowing 11/03/23 History of cardiac catheterization 07/2022 with findings of coronary artery disease with recommendation of medical therapy due to high risk for PCI, on dual anti-platelet therapy History of lithotripsy (04/15/19) History of partial colectomy (04/09/09) Laparoscopic sigmoid colectomy for sigmoid adenocarcinoma. History of colonoscopy with polypectomy History of bilateral inguinal hernia repair (05/30/16) History of Achilles tendon repair (11/29/14) Right. History of colon resection (04/23/22) Hand assisted laparoscopic right hemicolectomy with ileocolic anastomosis, small bowel resection with side to side anastomosis, and extensive adhesiolysis. Family History Family History Sibling Throat cancer Other Family history non-contributory Social History Social History Social History: Patient smoked 1/2ppd x 20yrs but quit 45yrs ago. Hx of heavy alcohol use when he was young but no alcohol currently. No hx of drug use including IVDU. Lives at home with his . No pets. Surrogate medical decision maker: Theodore Bryant (son). Code status: Full code. Smoking packs per day: 0.5 Smoking cigarettes per day: 10.0 Years smoked: 20 Smoking pack-years: 10.00 Smoking status: Former smoker Tobacco type: cigarettes Second hand tobacco smoke exposure: No Smoking end date: 03/23/79 Additional smoking assessment comments: SON STATES PT STOPPED SMOKING ABOUT 45YRS AGO Alcohol intake: current Drinks per week: 1 Alcohol use details: RARELY - FEW TIMES A YEAR Substance use: never Substance use type: does not use Do You Feel Safe in your Home?: Yes Lack of Transportation: No Lack of Food: Never True Current Housing: I Have Housing Concerned About Future Housing: Decline to Answer Difficulty Paying Gas/Electric Bills: Decline to Answer Difficulty Paying for Meds: Decline to Answer Currently Unemployed: Decline to Answer Education: High School Diploma/GED Difficulty w/ Childcare or Family Care: Decline to Answer Living arrangements: with family Additional living arrangements comments: Occupation/Education: retired 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 Spiritual care concerns: No Meds Home Medications and Allergies Home Medications ?Medication ?Instructions ?Recorded ?Confirmed ?Type clopidogrel 75 mg tablet 75 mg PO DAILY 01/20/23 08/23/24 History rosuvastatin 20 mg tablet 20 mg PO DAILY 01/20/23 08/23/24 History metoprolol succinate 50 mg 50 mg PO DAILY 02/06/23 08/23/24 History tablet,extended release 24 hr tamsulosin 0.4 mg capsule See Rx Instructions .Route 02/11/23 08/23/24 Rx .COMPLEX #90 caps tramadol 50 mg tablet 50 mg PO Q6H PRN pain #20 tabs 11/03/23 08/23/24 Rx triamcinolone acetonide 0.1 % 1 applic topical BID #80 grams 08/04/24 08/23/24 Rx topical cream fruquintinib 5 mg capsule 5 mg PO .COMPLEX Chemotherapy 08/23/24 08/23/24 History (Fruzaqla) Allergies Allergy/AdvReac Type Severity Reaction Status Date / Time No Known Allergies Allergy Unknown Verified 08/22/24 20:30 Vital Signs Vital Signs - 24 hr 08/22/24 20:42 08/22/24 20:59 08/22/24 21:00 Temperature 36.7 C Pulse Rate 109 H 98 99 Respiratory Rate 17 15 17 Blood Pressure 76/43 L Pulse Oximetry 99 98 97 Oxygen Delivery Room Air 08/22/24 21:01 08/22/24 21:02 08/22/24 21:15 Temperature 38.6 C H Pulse Rate 108 H 98 94 Respiratory Rate 17 16 18 Blood Pressure 79/55 L 79/55 L 68/53 L Pulse Oximetry 97 97 98 Oxygen Delivery 08/22/24 21:16 08/22/24 21:28 08/22/24 21:30 Temperature Pulse Rate 93 99 91 Respiratory Rate 14 18 21 H Blood Pressure 88/55 L 84/66 L Pulse Oximetry 99 Oxygen Delivery 08/22/24 21:31 08/22/24 21:32 08/22/24 21:45 Temperature 37.4 C Pulse Rate 91 92 92 Respiratory Rate 17 15 15 Blood Pressure 84/66 L 103/67 Pulse Oximetry 99 74 L Oxygen Delivery 08/22/24 21:46 08/22/24 22:00 08/22/24 22:01 Temperature Pulse Rate 92 93 92 Respiratory Rate 19 17 19 Blood Pressure 101/65 Pulse Oximetry 74 L 99 99 Oxygen Delivery 08/22/24 22:15 08/22/24 22:30 08/22/24 22:31 Temperature Pulse Rate 91 92 92 Respiratory Rate 17 16 16 Blood Pressure 96/66 L Pulse Oximetry 98 99 Oxygen Delivery 08/22/24 23:00 08/22/24 23:27 08/22/24 23:27 Temperature 37.0 C Pulse Rate 89 91 90 Respiratory Rate 15 20 21 H Blood Pressure 82/60 L 82/60 L Pulse Oximetry 98 99 Oxygen Delivery 08/22/24 23:28 08/22/24 23:30 08/22/24 23:31 Temperature Pulse Rate 92 89 88 Respiratory Rate 21 H 18 19 Blood Pressure 80/60 L Pulse Oximetry 95 96 96 Oxygen Delivery 08/22/24 23:46 08/22/24 23:50 08/23/24 00:00 Temperature Pulse Rate 87 86 85 Respiratory Rate 18 19 18 Blood Pressure 75/61 L 80/59 L Pulse Oximetry 96 96 95 Oxygen Delivery 08/23/24 00:01 08/23/24 00:21 08/23/24 00:25 Temperature Pulse Rate 87 84 84 Respiratory Rate 20 19 18 Blood Pressure 78/59 L 74/59 L Pulse Oximetry 95 95 98 Oxygen Delivery 08/23/24 00:26 08/23/24 00:30 08/23/24 00:31 Temperature Pulse Rate 82 83 83 Respiratory Rate 18 19 19 Blood Pressure 74/61 L Pulse Oximetry 96 100 99 Oxygen Delivery 08/23/24 00:45 08/23/24 00:56 08/23/24 01:00 Temperature Pulse Rate 82 81 82 Respiratory Rate 19 20 17 Blood Pressure 71/56 L 72/56 L 72/55 L Pulse Oximetry 100 100 100 Oxygen Delivery 08/23/24 01:51 08/23/24 02:00 08/23/24 02:15 Temperature Pulse Rate 78 81 Respiratory Rate 19 23 H Blood Pressure 72/58 L 82/62 L 77/56 L Pulse Oximetry 95 96 Oxygen Delivery 08/23/24 02:30 08/23/24 02:37 08/23/24 02:45 Temperature Pulse Rate 76 74 73 Respiratory Rate 19 20 19 Blood Pressure 70/49 L 71/59 L 66/54 L Pulse Oximetry 97 96 Oxygen Delivery 08/23/24 02:46 08/23/24 02:48 08/23/24 04:15 Temperature Pulse Rate 74 73 68 Respiratory Rate 19 19 22 H Blood Pressure 73/53 L 82/62 L Pulse Oximetry 96 96 100 Oxygen Delivery 08/23/24 04:30 08/23/24 04:45 08/23/24 04:46 Temperature Pulse Rate 70 68 68 Respiratory Rate 20 18 Blood Pressure 74/54 L 78/57 L 78/57 L Pulse Oximetry 98 98 Oxygen Delivery 08/23/24 05:00 08/23/24 05:24 08/23/24 05:37 Temperature Pulse Rate 65 76 78 Respiratory Rate 20 18 Blood Pressure 108/58 L 123/60 109/63 Pulse Oximetry 97 96 Oxygen Delivery 08/23/24 05:39 08/23/24 05:42 08/23/24 05:45 Temperature Pulse Rate 83 81 74 Respiratory Rate 18 19 Blood Pressure 78/47 L 96/57 L 93/53 L Pulse Oximetry 95 95 Oxygen Delivery 08/23/24 05:45 08/23/24 05:46 08/23/24 05:48 Temperature Pulse Rate 75 72 72 Respiratory Rate 19 18 19 Blood Pressure 93/53 L 100/63 112/65 Pulse Oximetry 96 97 96 Oxygen Delivery 08/23/24 05:51 08/23/24 05:54 08/23/24 05:58 Temperature Pulse Rate 65 77 82 Respiratory Rate 17 17 15 Blood Pressure 107/64 123/64 116/60 Pulse Oximetry 96 95 96 Oxygen Delivery 08/23/24 05:59 08/23/24 06:00 08/23/24 06:01 Temperature Pulse Rate 76 75 71 Respiratory Rate 22 H 21 H 29 H Blood Pressure 117/64 Pulse Oximetry 96 95 95 Oxygen Delivery 08/23/24 06:03 08/23/24 06:06 08/23/24 06:09 Temperature Pulse Rate 75 76 74 Respiratory Rate 17 17 17 Blood Pressure 111/66 117/70 110/61 Pulse Oximetry 94 95 95 Oxygen Delivery 08/23/24 06:12 08/23/24 06:15 08/23/24 06:16 Temperature Pulse Rate 73 73 74 Respiratory Rate 17 18 16 Blood Pressure 116/56 L 102/63 Pulse Oximetry 95 94 95 Oxygen Delivery 08/23/24 06:18 08/23/24 06:21 08/23/24 06:24 Temperature Pulse Rate 73 75 77 Respiratory Rate 17 16 17 Blood Pressure 121/66 113/65 113/67 Pulse Oximetry 95 95 95 Oxygen Delivery 08/23/24 06:27 08/23/24 06:30 08/23/24 06:31 Temperature Pulse Rate 76 74 79 Respiratory Rate 21 H 18 17 Blood Pressure 109/65 117/61 Pulse Oximetry 94 95 95 Oxygen Delivery 08/23/24 06:33 08/23/24 06:43 08/23/24 06:45 Temperature Pulse Rate 78 75 71 Respiratory Rate 18 22 H 19 Blood Pressure 110/61 114/82 127/82 Pulse Oximetry 95 95 96 Oxygen Delivery 08/23/24 07:00 08/23/24 07:30 08/23/24 08:00 Temperature Pulse Rate 67 72 82 Respiratory Rate Blood Pressure 80/56 L 139/77 107/70 Pulse Oximetry Oxygen Delivery 08/23/24 09:20 Temperature Pulse Rate 65 Respiratory Rate Blood Pressure 86/62 L Pulse Oximetry Oxygen Delivery Exam 2 Narrative: General: Pt is alert awake and in NAD Lungs/Chest: Trachea central Clear BS B/L, No crackles or wheezing. Cardiac: RRR. Normal S1 S2. No murmurs Circulation: Pedal pulses are intact and symmetrical. Abdomen: Normal bowel sounds.. Soft. Mild tenderness palpation right upper quadrant Scar from past surgical incision Extremities: Mild bilateral pitting edema. Warm : Lima in place Neurologic: Follows commands. Moves all 4 extremities PERRL AO x3 Skin: No Rash Results Labs 08/22/24 21:03 08/23/24 06:00 Labs: Impressions Chest X-Ray 08/22/24 21:41 IMPRESSION: Subsegmental bibasilar atelectasis/consolidation. Shoulder X-Ray 08/22/24 23:34 IMPRESSION: No acute osseous finding the left shoulder. Abdomen/Pelvis CT 08/23/24 05:20 Impression: 6.2 x 2.1 x 5.0 cm abscess along the inferior margin of the right hepatic lobe, possibly related to a dropped gallstone. Suspected extension into the inferior hepatic lobe with a 2.2 cm fluid attenuation area in the liver in this region, which is new from prior exam. 3.3 cm distal abdominal aortic aneurysm. Minimal pleural effusions with mild bibasilar pulmonary edema/atelectasis. 9 mm nonobstructing left renal stone. Chest X-Ray 08/23/24 11:22 IMPRESSION: 1. Right PICC line tip in the midsuperior vena cava. 2. Mild bibasilar opacities which could represent atelectasis, mild pulmonary edema or pneumonia. Short CBC 08/22/24 Range/Units 21:03 WBC 0.9 L* (4.5-10.0) K/mm3 Hgb 12.0 L (14.0-18.0) g/dL Hct 37.4 L (42.0-52.0) % Plt Count 146 L (150-375) k/mm3 BMP 08/22/24 08/23/24 21:03 06:00 Sodium 140 Potassium 3.2 L Chloride 108 H Carbon Dioxide 23 BUN 26 H D Creatinine 1.15 1.29 Glucose 82 Calcium 8.9 Cardiac Enzymes 08/22/24 08/22/24 08/22/24 Range/Units 21:03 22:27 22:27 Total Creatine Kinase Cancelled 82 Troponin I < 0.012 (0.000-0.034) ng/mL Liver Function 08/22/24 Range/Units 21:03 Total Bilirubin 1.1 (0.2-1.3) mg/dL AST 499 H (17-59) U/L ALT 224 H (6-50) U/L Alkaline Phosphatase 247 H (38-126) U/L Albumin 3.8 (3.5-5.1) g/dL Urine 08/23/24 Range/Units 00:22 Urine Color Dark yellow (Yellow) Urine Appearance Cloudy H (Clear) Urine pH 5.5 (5.0-9.0) Ur Specific [place] 1.025 (1.001-1.035) Urine Protein 2+ H (Negative) mg/dL Urine Glucose (UA) Negative (Negative) mg/dL Hospitalist MIPS Advance Care Plan I have confirmed that the patient's Advanced Care Plan is present, code status is documented, or surrogate decision maker is listed in patient medical record.: Yes Medication Reconciliation I have utilized all available resources to obtain, update and review the patients current medications (includes all prescriptions, OTC, herbals, cannabis, and nutritional supplements).: Yes
--- NOTE | 2024-08-23 10:21 | P.CONGS_ITS ---
Assessment and Plan Assessment and plan (1) Intra-abdominal abscess: Code(s): K65.1 - Peritoneal abscess Status: Acute Assessment and Plan: * Patient presents with septic shock and found to have CT evidence of an intraabdominal abscess along the right lateral border of the liver. There appears to be a likely 1 cm calcified gallstone within the fluid collection that could have been a dropped gallstone from his laparoscopic cholecystectomy about 1.5 years ago. This calcification was present on his CT scan from about a year ago after his cholecystectomy in the same location. He has been having intermittent right lateral subcostal pain for almost the past year, which could be related to the retained gallstone. We would recommend to continue IV antibiotics for now. I reviewed the CT scan with the Radiologist regarding possible percutaneous drainage of the abscess in IR. The abscess is amenable to drainage, but they would have to go through the pleura to drain the abscess, which comes with added risk of seeding the pleural space. The patient is oriented but the language barrier makes decision making difficult and he would like us to speak with his son. I will discuss this with his son this morning and plan to proceed with percutaneous drainage if he is agreeable. (2) Septic shock: Code(s): A41.9 - Sepsis, unspecified organism; R65.21 - Severe sepsis with septic shock Status: Acute Assessment and Plan: * Source is likely related to the intraabdominal abscess. Patient is neutropenic and being treated for colon cancer. Oncology/Hematology also consulted for his neutropenia. Plan for possible percutaneous drainage in IR for source control. Will discuss with his son this morning prior to proceeding. * Continue broad-spectrum IV antibiotics * Wean pressors as tolerated. Continue critical care management * Blood cultures pending. (3) History of colon cancer: Code(s): Z85.038 - Personal history of other malignant neoplasm of large intestine Status: Acute Assessment and Plan: * Treated for colon cancer in 2009 and 2022 (see HPI for details). Currently being followed by Dr. Leung and being treated for recurrence. (4) Hx laparoscopic cholecystectomy: Code(s): Z90.49 - Acquired absence of other specified parts of digestive tract Status: Acute Assessment and Plan: * Patient underwent laparoscopic cholecystectomy in 01/2023 with mention of spillage of at least one large gallstone during surgery that was extracted. The recent CT scan showed a nearly 1 cm calcified likely dropped gallstone within the fluid collection, which could be the source of the abscess. See plan above. (5) Antiplatelet or antithrombotic long-term use: Code(s): Z79.02 - snf (current) use of antithrombotics/antiplatelets Status: Acute Assessment and Plan: * Plavix on hold (6) Coronary artery disease: Code(s): I25.10 - Atherosclerotic heart disease of [place] coronary artery without angina pectoris Status: Acute (7) Neutropenia with fever: Code(s): D70.9 - Neutropenia, unspecified; R50.81 - Fever presenting with conditions classified elsewhere Status: Acute Assessment and Plan: * Hem/Onc consulted for recommendations on Neupogen. (8) Thrombocytopenia: Code(s): D69.6 - Thrombocytopenia, unspecified Status: Acute Plan I have discussed the patient's case and plan of care with Dr. Graham. [employer] manager location used as mentioned above ([facility] #[id number]). History of Present Illness Consult details Consult date: 08/23/24 Reason for consult: other (Colon cancer, intraabdominal abscess) Requesting physician: Jorge Nobles MD Narrative: This is an 84-year-old man with a history of CAD and colon cancer in 2009 s/p laparoscopic sigmoid colon resection and in 2022 s/p JERMAINE right hemicolectomy, small bowel resection and treated with neoadjuvant chemotherapy. He is currently followed by Dr. Leung. He was on Lonsurf and recently changed to oral fruquintinib July 18 (21 days on and 7 days off) due to issues with anemia. We have been asked to see him in surgical consultation for an intraabdominal abscess. History is obtained by review of the EMR and discussion with the patient with [facility] manager location. He came into the ED last night for complaints of chills. He recently had his a teeth extraction a few weeks ago and his fruquintinib was held for that procedure. He reports yesterday having severe chills and coming into the ED for evaluation. With further questioning, he also reports having intermittently pain pointing to the right lateral subcostal area. This pain comes and goes without any noted aggravating or alleviating factors. He was told by his Oncologist this may be related to his colon cancer. He denies noticing any recent worsening symptoms. The patient had a laparoscopic cholecystectomy in January of 2023. He reports noticing this pain about a year ago. In the ED, he was hypotensive and tachycardic. Labs showed a WBC count of 0.9, lactic acid 4.1, AST 499, ALT 224, and alk phos 247. Troponin negative. UA negative for UTI. CXR showing bibasilar atelectasis. Viral panel negative. CT scan of the abdomen and pelvis showed minimal pleural effusions with mild bibasilar pulmonary edema/atelectasis, 3.3 cm distal AAA, and 6.2 x 2.1 x 5.0 cm abscess along the inferior margin of the right hepatic lobe, possibly related to a dropped gallstone with suspected extension into the inferior hepatic lobe with a 2.2 cm fluid attenuation area in the liver in this region. He developed a fever in the ER. He was fluid resuscitated and had to be started on a Levophed infusion, which he is currently on a low rate of this infusion. He was admitted and started on broad-spectrum IV antibiotics, currently on Meropenem and Vancomycin. To note, the patient is on Plavix and believes he took his medication yesterday. He is now seen in ICU. He is alert and oriented x 3 with no family at the bedside. 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 Leung. Cholelithiasis Bilateral inguinal hernia Achilles tendon tear Surgical History Surgical History (Updated 08/23/24 @ 10:51 by JACK Rahman) Hx laparoscopic cholecystectomy 02/09/23 Status post dilation of urethral narrowing 11/03/23 History of cardiac catheterization 07/2022 with findings of coronary artery disease with recommendation of medical therapy due to high risk for PCI, on dual anti-platelet therapy History of lithotripsy (04/15/19) History of partial colectomy (04/09/09) Laparoscopic sigmoid colectomy for sigmoid adenocarcinoma. History of colonoscopy with polypectomy History of bilateral inguinal hernia repair (05/30/16) History of Achilles tendon repair (11/29/14) Right. History of colon resection (04/23/22) Hand assisted laparoscopic right hemicolectomy with ileocolic anastomosis, small bowel resection with side to side anastomosis, and extensive adhesiolysis. Family History Family History Sibling Throat cancer Other Family history non-contributory Social History Social History Social History: Patient smoked 1/2ppd x 20yrs but quit 45yrs ago. Hx of heavy alcohol use when he was young but no alcohol currently. No hx of drug use including IVDU. Lives at home with his . No pets. Surrogate medical decision maker: Theodore Bryant (son). Code status: Full code. Smoking packs per day: 0.5 Smoking cigarettes per day: 10.0 Years smoked: 20 Smoking pack-years: 10.00 Smoking status: Former smoker Tobacco type: cigarettes Second hand tobacco smoke exposure: No Smoking end date: 03/23/79 Additional smoking assessment comments: SON STATES PT STOPPED SMOKING ABOUT 45YRS AGO Alcohol intake: current Drinks per week: 1 Alcohol use details: RARELY - FEW TIMES A YEAR Substance use: never Substance use type: does not use Do You Feel Safe in your Home?: Yes Lack of Transportation: No Lack of Food: Never True Current Housing: I Have Housing Concerned About Future Housing: Decline to Answer Difficulty Paying Gas/Electric Bills: Decline to Answer Difficulty Paying for Meds: Decline to Answer Currently Unemployed: Decline to Answer Education: High School Diploma/GED Difficulty w/ Childcare or Family Care: Decline to Answer Living arrangements: with family Additional living arrangements comments: Occupation/Education: retired Additional occupation/education comments: 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 Spiritual care concerns: No Meds Home Medications and Allergies Home Medications ?Medication ?Instructions ?Recorded ?Confirmed ?Type clopidogrel 75 mg tablet 75 mg PO DAILY 01/20/23 08/23/24 History rosuvastatin 20 mg tablet 20 mg PO DAILY 01/20/23 08/23/24 History metoprolol succinate 50 mg 50 mg PO DAILY 02/06/23 08/23/24 History tablet,extended release 24 hr tamsulosin 0.4 mg capsule See Rx Instructions .Route 02/11/23 08/23/24 Rx .COMPLEX #90 caps tramadol 50 mg tablet 50 mg PO Q6H PRN pain #20 tabs 11/03/23 08/23/24 Rx triamcinolone acetonide 0.1 % 1 applic topical BID #80 grams 08/04/24 08/23/24 Rx topical cream fruquintinib 5 mg capsule 5 mg PO .COMPLEX Chemotherapy 08/23/24 08/23/24 History (Fruzaqla) Allergies Allergy/AdvReac Type Severity Reaction Status Date / Time No Known Allergies Allergy Unknown Verified 08/22/24 20:30 Vital Signs Vital Signs - 24 hr 08/22/24 20:42 08/22/24 20:59 08/22/24 21:00 Temperature 98.1 F Pulse Rate 109 H 98 99 Respiratory Rate 17 15 17 Blood Pressure 76/43 L Pulse Oximetry 99 98 97 Oxygen Delivery Room Air 08/22/24 21:01 08/22/24 21:02 08/22/24 21:15 Temperature 101.4 F H Pulse Rate 108 H 98 94 Respiratory Rate 17 16 18 Blood Pressure 79/55 L 79/55 L 68/53 L Pulse Oximetry 97 97 98 Oxygen Delivery 08/22/24 21:16 08/22/24 21:28 08/22/24 21:30 Temperature Pulse Rate 93 99 91 Respiratory Rate 14 18 21 H Blood Pressure 88/55 L 84/66 L Pulse Oximetry 99 Oxygen Delivery 08/22/24 21:31 08/22/24 21:32 08/22/24 21:45 Temperature 99.3 F Pulse Rate 91 92 92 Respiratory Rate 17 15 15 Blood Pressure 84/66 L 103/67 Pulse Oximetry 99 74 L Oxygen Delivery 08/22/24 21:46 08/22/24 22:00 08/22/24 22:01 Temperature Pulse Rate 92 93 92 Respiratory Rate 19 17 19 Blood Pressure 101/65 Pulse Oximetry 74 L 99 99 Oxygen Delivery 08/22/24 22:15 08/22/24 22:30 08/22/24 22:31 Temperature Pulse Rate 91 92 92 Respiratory Rate 17 16 16 Blood Pressure 96/66 L Pulse Oximetry 98 99 Oxygen Delivery 08/22/24 23:00 08/22/24 23:27 08/22/24 23:27 Temperature 98.6 F Pulse Rate 89 91 90 Respiratory Rate 15 20 21 H Blood Pressure 82/60 L 82/60 L Pulse Oximetry 98 99 Oxygen Delivery 08/22/24 23:28 08/22/24 23:30 08/22/24 23:31 Temperature Pulse Rate 92 89 88 Respiratory Rate 21 H 18 19 Blood Pressure 80/60 L Pulse Oximetry 95 96 96 Oxygen Delivery 08/22/24 23:46 08/22/24 23:50 08/23/24 00:00 Temperature Pulse Rate 87 86 85 Respiratory Rate 18 19 18 Blood Pressure 75/61 L 80/59 L Pulse Oximetry 96 96 95 Oxygen Delivery 08/23/24 00:01 08/23/24 00:21 08/23/24 00:25 Temperature Pulse Rate 87 84 84 Respiratory Rate 20 19 18 Blood Pressure 78/59 L 74/59 L Pulse Oximetry 95 95 98 Oxygen Delivery 08/23/24 00:26 08/23/24 00:30 08/23/24 00:31 Temperature Pulse Rate 82 83 83 Respiratory Rate 18 19 19 Blood Pressure 74/61 L Pulse Oximetry 96 100 99 Oxygen Delivery 08/23/24 00:45 08/23/24 00:56 08/23/24 01:00 Temperature Pulse Rate 82 81 82 Respiratory Rate 19 20 17 Blood Pressure 71/56 L 72/56 L 72/55 L Pulse Oximetry 100 100 100 Oxygen Delivery 08/23/24 01:51 08/23/24 02:00 08/23/24 02:15 Temperature Pulse Rate 78 81 Respiratory Rate 19 23 H Blood Pressure 72/58 L 82/62 L 77/56 L Pulse Oximetry 95 96 Oxygen Delivery 08/23/24 02:30 08/23/24 02:37 08/23/24 02:45 Temperature Pulse Rate 76 74 73 Respiratory Rate 19 20 19 Blood Pressure 70/49 L 71/59 L 66/54 L Pulse Oximetry 97 96 Oxygen Delivery 08/23/24 02:46 08/23/24 02:48 08/23/24 04:15 Temperature Pulse Rate 74 73 68 Respiratory Rate 19 19 22 H Blood Pressure 73/53 L 82/62 L Pulse Oximetry 96 96 100 Oxygen Delivery 08/23/24 04:30 08/23/24 04:45 08/23/24 04:46 Temperature Pulse Rate 70 68 68 Respiratory Rate 20 18 Blood Pressure 74/54 L 78/57 L 78/57 L Pulse Oximetry 98 98 Oxygen Delivery 08/23/24 05:00 08/23/24 05:24 08/23/24 05:37 Temperature Pulse Rate 65 76 78 Respiratory Rate 20 18 Blood Pressure 108/58 L 123/60 109/63 Pulse Oximetry 97 96 Oxygen Delivery 08/23/24 05:39 08/23/24 05:42 08/23/24 05:45 Temperature Pulse Rate 83 81 74 Respiratory Rate 18 19 Blood Pressure 78/47 L 96/57 L 93/53 L Pulse Oximetry 95 95 Oxygen Delivery 08/23/24 05:45 08/23/24 05:46 08/23/24 05:48 Temperature Pulse Rate 75 72 72 Respiratory Rate 19 18 19 Blood Pressure 93/53 L 100/63 112/65 Pulse Oximetry 96 97 96 Oxygen Delivery 08/23/24 05:51 08/23/24 05:54 08/23/24 05:58 Temperature Pulse Rate 65 77 82 Respiratory Rate 17 17 15 Blood Pressure 107/64 123/64 116/60 Pulse Oximetry 96 95 96 Oxygen Delivery 08/23/24 05:59 08/23/24 06:00 08/23/24 06:01 Temperature Pulse Rate 76 75 71 Respiratory Rate 22 H 21 H 29 H Blood Pressure 117/64 Pulse Oximetry 96 95 95 Oxygen Delivery 08/23/24 06:03 08/23/24 06:06 08/23/24 06:09 Temperature Pulse Rate 75 76 74 Respiratory Rate 17 17 17 Blood Pressure 111/66 117/70 110/61 Pulse Oximetry 94 95 95 Oxygen Delivery 08/23/24 06:12 08/23/24 06:15 08/23/24 06:16 Temperature Pulse Rate 73 73 74 Respiratory Rate 17 18 16 Blood Pressure 116/56 L 102/63 Pulse Oximetry 95 94 95 Oxygen Delivery 08/23/24 06:18 08/23/24 06:21 08/23/24 06:24 Temperature Pulse Rate 73 75 77 Respiratory Rate 17 16 17 Blood Pressure 121/66 113/65 113/67 Pulse Oximetry 95 95 95 Oxygen Delivery 08/23/24 06:27 08/23/24 06:30 08/23/24 06:31 Temperature Pulse Rate 76 74 79 Respiratory Rate 21 H 18 17 Blood Pressure 109/65 117/61 Pulse Oximetry 94 95 95 Oxygen Delivery 08/23/24 06:33 08/23/24 06:43 08/23/24 06:45 Temperature Pulse Rate 78 75 71 Respiratory Rate 18 22 H 19 Blood Pressure 110/61 114/82 127/82 Pulse Oximetry 95 95 96 Oxygen Delivery 08/23/24 07:00 08/23/24 07:30 08/23/24 08:00 Temperature Pulse Rate 67 72 82 Respiratory Rate Blood Pressure 80/56 L 139/77 107/70 Pulse Oximetry Oxygen Delivery 08/23/24 09:20 Temperature Pulse Rate 65 Respiratory Rate Blood Pressure 86/62 L Pulse Oximetry Oxygen Delivery Exam 2 Const: General: comfortable and no acute distress Nutritional Appearance: a verage body habitus Orientation/consciousness: patient oriented x3 HENMT: Head: normocephalic and atraumatic Ears: hearing grossly normal bilaterally Mouth: Yes moist mucous membranes Eyes: General: appearance normal, both eyes and all related structures P upils: Equal, round and reactive pupils present Neck: Neck: normal visual inspection and full ROM Resp: Effort & Inspection: no respiratory distress Auscultation: clear to auscultation bilaterally Cardio: Rate: regular rate Rhythm: regular rhythm Peripheral pulses: P eripheral pulses 2+ throughout GI: Inspection: non-distended, scar (large midline scar and trochar site scars) and no visible herniation GI Palp: Yes Soft to palpation, Yes Tenderness to palpation present (GI) (RUQ and along the more lateral subcostal area), No Guarding due to palpation present (GI) and No Rebound tenderness present Auscultation: normal bowel sounds Rectal Exam: deferred Skin: General skin exam: normal color Neuro: General: moves all extremities and no focal motor deficits Speech: n ormal speech Motor exam (neuro): 5/5 motor strength present throughout Extrem: General: normal to inspection and no edema Psych: Mental Status: mental status grossly normal Attitude: cooperative Insight: Good insight present (Psych) Judgement: Good judgement present (Psych) Results Labs 08/22/24 21:03 08/23/24 06:00 Labs: Abnormal lab results 08/22/24 08/22/24 08/23/24 Range/Units 21:03 22:27 00:22 WBC 0.9 L* (4.5-10.0) K/mm3 RBC 3.53 L (4.6-6.20) M/mm3 Hgb 12.0 L (14.0-18.0) g/dL Hct 37.4 L (42.0-52.0) % MCV 105.9 H (80-100) fl RDW 14.6 H (11.5-14.5) % Plt Count 146 L (150-375) k/mm3 Band Neutrophils % 17 H (0-6) % Lymphocytes % (Manual) 16 L (18-44) % Monocytes % (Manual) 2 L (3-9) % Abs Neuts (Manual) 0.73 L (1.3-6.7) K/mm3 Abs Lymphs (Manual) 0.14 L (1.1-4.5) K/mm3 Abs Monocytes (Manual) 0.01 L (0.1-0.90) K/mm3 PT 15.7 H (11.1-14.7) Seconds Potassium 3.2 L (3.4-5.0) mmol/L Chloride 108 H (98-107) mmol/L BUN 26 H D (9-20) mg/dL Estimated GFR (59 - ) Lactic Acid 4.1 H* (0.7-2.0) mmol/L AST 499 H (17-59) U/L ALT 224 H (6-50) U/L Alkaline Phosphatase 247 H (38-126) U/L C-Reactive Protein 4.9 H (<1.0) mg/dL Urine Appearance Cloudy H (Clear) Urine Protein 2+ H (Negative) mg/dL Urine Ketones Trace H (Negative) mg/dL Urine Bilirubin 1+ H (Negative) Leukocyte Esterase Rfl Trace H (Negative) WENDIE/UL 08/23/24 08/23/24 Range/Units 00:54 06:00 WBC (4.5-10.0) K/mm3 RBC (4.6-6.20) M/mm3 Hgb (14.0-18.0) g/dL Hct (42.0-52.0) % MCV (80-100) fl RDW (11.5-14.5) % Plt Count (150-375) k/mm3 Band Neutrophils % (0-6) % Lymphocytes % (Manual) (18-44) % Monocytes % (Manual) (3-9) % Abs Neuts (Manual) (1.3-6.7) K/mm3 Abs Lymphs (Manual) (1.1-4.5) K/mm3 Abs Monocytes (Manual) (0.1-0.90) K/mm3 PT (11.1-14.7) Seconds Potassium (3.4-5.0) mmol/L Chloride (98-107) mmol/L BUN (9-20) mg/dL Estimated GFR 53 L (59 - ) Lactic Acid 3.9 H (0.7-2.0) mmol/L AST (17-59) U/L ALT (6-50) U/L Alkaline Phosphatase (38-126) U/L C-Reactive Protein (<1.0) mg/dL Urine Appearance (Clear) Urine Protein (Negative) mg/dL Urine Ketones (Negative) mg/dL Urine Bilirubin (Negative) Leukocyte Esterase Rfl (Negative) WENDIE/UL Diabetes panel 08/22/24 08/23/24 Range/Units 21:03 06:00 Sodium 140 (137-145) mmol/L Potassium 3.2 L (3.4-5.0) mmol/L Chloride 108 H (98-107) mmol/L Carbon Dioxide 23 (22-30) mmol/L BUN 26 H D (9-20) mg/dL Creatinine 1.15 1.29 (0.7-1.3) mg/dL Glucose 82 (65-110) mg/dL Calcium 8.9 (8.4-10.2) mg/dL AST 499 H (17-59) U/L ALT 224 H (6-50) U/L Alkaline Phosphatase 247 H (38-126) U/L Total Protein 8.0 (6.3-8.2) g/dL Albumin 3.8 (3.5-5.1) g/dL Calcium panel 08/22/24 Range/Units 21:03 Calcium 8.9 (8.4-10.2) mg/dL Albumin 3.8 (3.5-5.1) g/dL Pituitary panel 08/22/24 08/23/24 Range/Units 21:03 06:00 Sodium 140 (137-145) mmol/L Potassium 3.2 L (3.4-5.0) mmol/L Chloride 108 H (98-107) mmol/L Carbon Dioxide 23 (22-30) mmol/L BUN 26 H D (9-20) mg/dL Creatinine 1.15 1.29 (0.7-1.3) mg/dL Glucose 82 (65-110) mg/dL Calcium 8.9 (8.4-10.2) mg/dL Adrenal panel 08/22/24 08/23/24 Range/Units 21:03 06:00 Sodium 140 (137-145) mmol/L Potassium 3.2 L (3.4-5.0) mmol/L Chloride 108 H (98-107) mmol/L Carbon Dioxide 23 (22-30) mmol/L BUN 26 H D (9-20) mg/dL Creatinine 1.15 1.29 (0.7-1.3) mg/dL Glucose 82 (65-110) mg/dL Calcium 8.9 (8.4-10.2) mg/dL Total Bilirubin 1.1 (0.2-1.3) mg/dL AST 499 H (17-59) U/L ALT 224 H (6-50) U/L Alkaline Phosphatase 247 H (38-126) U/L Total Protein 8.0 (6.3-8.2) g/dL Albumin 3.8 (3.5-5.1) g/dL All other labs normal. Imaging Additional studies: ITS Impressions Chest X-Ray 08/22/24 21:41 IMPRESSION: Subsegmental bibasilar atelectasis/consolidation. Shoulder X-Ray 08/22/24 23:34 IMPRESSION: No acute osseous finding the left shoulder. Abdomen/Pelvis CT 08/23/24 05:20 Impression: 6.2 x 2.1 x 5.0 cm abscess along the inferior margin of the right hepatic lobe, possibly related to a dropped gallstone. Suspected extension into the inferior hepatic lobe with a 2.2 cm fluid attenuation area in the liver in this region, which is new from prior exam. 3.3 cm distal abdominal aortic aneurysm. Minimal pleural effusions with mild bibasilar pulmonary edema/atelectasis. 9 mm nonobstructing left renal stone.
[2024-08-23] MEDS: MEROPENEM 1 GM/NS 100 ML 1 GM/100 ML BAG IVPB ×2 (11:18→20:56)
[2024-08-23] MEDS: KCL 20 MEQ/D5/0.45% SOD CHL 1,000 ML 100 ML IV CONT ×2 (11:19→21:50)
--- NOTE | 2024-08-23 11:31 | PCFNICU ---
ICU Rounding Note: Pt current nutrition is NPO. Last recorded weight is 73.6 kg. Labs Reviewed: BUN 26, K 3.2, Hct 37.4, Hgb 12.0 Meds Noted: Vancomycin, Meropenem, Levophed. Skin: WNL Additional Notes: Patient currently NPO. Spoke with nursing today, plans for drain placement. Following daily in ICU rounds.
[2024-08-23] MEDS: TAMSULOSIN HCL 0.4 MG CAPSULE PO (13:17)
[2024-08-23] MEDS: POTASSIUM BICARBONATE 25 MEQ TABEF 50 MEQ PO (13:17)
[2024-08-23] MEDS: CENTRAL LINE FLUSH 10 ML IV PUSH ×2 (14:03→20:59)
--- NOTE | 2024-08-23 18:38 | WPDONCCN ---
Assessment and Plan Assessment and plan (1) Neutropenia with fever: Code(s): D70.9 - Neutropenia, unspecified; R50.81 - Fever presenting with conditions classified elsewhere Status: Acute Assessment and Plan: Chemotherapy-induced leukopenia. Patient has a history of colon cancer and currently on treatment with fruzaqla. Came into the hospital with chills and shaking. Imaging study showed 6.2 x 2.1 x 5 cm abscess along the inferior margin of the right hepatic lobe possibly related to the dropped gallstone with suspected extension into the inferior hepatic lobe. His low white blood cell count is secondary to the treatment with oral agent along with infection. ANC is 730. I would start Neupogen 300 mcg subQ daily until white blood cell count is more than 5000. I will also order brief workup for anemia. His anemia and thrombocytopenia is also likely secondary to his cancer therapy. We will continue to hold treatment with fruzaqla. He will follow-up with after the discharge. HPI Data of Consult Date/Time: 08/23/24 18:38 Requesting Physician: Bessy Trujillo MD Primary Care Provider: Kandy Rodriguez MD Consult Narrative Narrative: Sterling Bryant is a 84 year old male [place] male with history of coronary artery disease and colon cancer getting chemotherapy treatment came into the hospital with shaking and chills. He was diagnosed with stage III colon cancer status post hemicolectomy in 2022 and currently being followed by Dr. Leung. Patient is currently on treatment with fruquintinib. He had laparoscopic cholecystectomy done in January 2023. He has been having intermittent right flank pain for last 7 months duration. Patient came into the ER with the symptom of chills and shaking. His temperature was 101.4?. CT abdomen and pelvis showed 6.2 x 2.1 x 5 cm abscess along the inferior margin of the right hepatic lobe. Labs showed WBC count 0.9 with hemoglobin of 12 and platelet of [id number]. ANC was 730. 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 Leung. Cholelithiasis Bilateral inguinal hernia Achilles tendon tear Surgical History Surgical History (Updated 08/23/24 @ 10:51 by JACK Rahman) Hx laparoscopic cholecystectomy 02/09/23 Status post dilation of urethral narrowing 11/03/23 History of cardiac catheterization 07/2022 with findings of coronary artery disease with recommendation of medical therapy due to high risk for PCI, on dual anti-platelet therapy History of lithotripsy (04/15/19) History of partial colectomy (04/09/09) Laparoscopic sigmoid colectomy for sigmoid adenocarcinoma. History of colonoscopy with polypectomy History of bilateral inguinal hernia repair (05/30/16) History of Achilles tendon repair (11/29/14) Right. History of colon resection (04/23/22) Hand assisted laparoscopic right hemicolectomy with ileocolic anastomosis, small bowel resection with side to side anastomosis, and extensive adhesiolysis. Family History Family History Sibling Throat cancer Other Family history non-contributory Social History Social History Social History: Patient smoked 1/2ppd x 20yrs but quit 45yrs ago. Hx of heavy alcohol use when he was young but no alcohol currently. No hx of drug use including IVDU. Lives at home with his . No pets. Surrogate medical decision maker: Theodore Bryant (son). Code status: Full code. Smoking packs per day: 0.5 Smoking cigarettes per day: 10.0 Years smoked: 20 Smoking pack-years: 10.00 Smoking status: Former smoker Tobacco type: cigarettes Second hand tobacco smoke exposure: No Smoking end date: 03/23/79 Additional smoking assessment comments: SON STATES PT STOPPED SMOKING ABOUT 45YRS AGO Alcohol intake: current Drinks per week: 1 Alcohol use details: RARELY - FEW TIMES A YEAR Substance use: never Substance use type: does not use Do You Feel Safe in your Home?: Yes Lack of Transportation: No Lack of Food: Never True Current Housing: I Have Housing Concerned About Future Housing: Decline to Answer Difficulty Paying Gas/Electric Bills: Decline to Answer Difficulty Paying for Meds: Decline to Answer Currently Unemployed: Decline to Answer Education: High School Diploma/GED Difficulty w/ Childcare or Family Care: Decline to Answer Living arrangements: with family Additional living arrangements comments: Occupation/Education: retired 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 Spiritual care concerns: No Meds Home Medications and Allergies Home Medications ?Medication ?Instructions ?Recorded ?Confirmed ?Type clopidogrel 75 mg tablet 75 mg PO DAILY 01/20/23 08/23/24 History rosuvastatin 20 mg tablet 20 mg PO DAILY 01/20/23 08/23/24 History metoprolol succinate 50 mg 50 mg PO DAILY 02/06/23 08/23/24 History tablet,extended release 24 hr tamsulosin 0.4 mg capsule See Rx Instructions .Route 02/11/23 08/23/24 Rx .COMPLEX #90 caps tramadol 50 mg tablet 50 mg PO Q6H PRN pain #20 tabs 11/03/23 08/23/24 Rx triamcinolone acetonide 0.1 % 1 applic topical BID #80 grams 08/04/24 08/23/24 Rx topical cream fruquintinib 5 mg capsule 5 mg PO .COMPLEX Chemotherapy 08/23/24 08/23/24 History (Fruzaqla) Allergies Allergy/AdvReac Type Severity Reaction Status Date / Time No Known Allergies Allergy Unknown Verified 08/22/24 20:30 Vital Signs Vital Signs - 24 hr 08/22/24 20:42 08/22/24 20:59 08/22/24 21:00 Temperature 36.7 C Pulse Rate 109 H 98 99 Respiratory Rate 17 15 17 Blood Pressure 76/43 L Pulse Oximetry 99 98 97 Oxygen Delivery Room Air 08/22/24 21:01 08/22/24 21:02 08/22/24 21:15 Temperature 38.6 C H Pulse Rate 108 H 98 94 Respiratory Rate 17 16 18 Blood Pressure 79/55 L 79/55 L 68/53 L Pulse Oximetry 97 97 98 Oxygen Delivery 08/22/24 21:16 08/22/24 21:28 08/22/24 21:30 Temperature Pulse Rate 93 99 91 Respiratory Rate 14 18 21 H Blood Pressure 88/55 L 84/66 L Pulse Oximetry 99 Oxygen Delivery 08/22/24 21:31 08/22/24 21:32 08/22/24 21:45 Temperature 37.4 C Pulse Rate 91 92 92 Respiratory Rate 17 15 15 Blood Pressure 84/66 L 103/67 Pulse Oximetry 99 74 L Oxygen Delivery 08/22/24 21:46 08/22/24 22:00 08/22/24 22:01 Temperature Pulse Rate 92 93 92 Respiratory Rate 19 17 19 Blood Pressure 101/65 Pulse Oximetry 74 L 99 99 Oxygen Delivery 08/22/24 22:15 08/22/24 22:30 08/22/24 22:31 Temperature Pulse Rate 91 92 92 Respiratory Rate 17 16 16 Blood Pressure 96/66 L Pulse Oximetry 98 99 Oxygen Delivery 08/22/24 23:00 08/22/24 23:27 08/22/24 23:27 Temperature 37.0 C Pulse Rate 89 91 90 Respiratory Rate 15 20 21 H Blood Pressure 82/60 L 82/60 L Pulse Oximetry 98 99 Oxygen Delivery 08/22/24 23:28 08/22/24 23:30 08/22/24 23:31 Temperature Pulse Rate 92 89 88 Respiratory Rate 21 H 18 19 Blood Pressure 80/60 L Pulse Oximetry 95 96 96 Oxygen Delivery 08/22/24 23:46 08/22/24 23:50 08/23/24 00:00 Temperature Pulse Rate 87 86 85 Respiratory Rate 18 19 18 Blood Pressure 75/61 L 80/59 L Pulse Oximetry 96 96 95 Oxygen Delivery 08/23/24 00:01 08/23/24 00:21 08/23/24 00:25 Temperature Pulse Rate 87 84 84 Respiratory Rate 20 19 18 Blood Pressure 78/59 L 74/59 L Pulse Oximetry 95 95 98 Oxygen Delivery 08/23/24 00:26 08/23/24 00:30 08/23/24 00:31 Temperature Pulse Rate 82 83 83 Respiratory Rate 18 19 19 Blood Pressure 74/61 L Pulse Oximetry 96 100 99 Oxygen Delivery 08/23/24 00:45 08/23/24 00:56 08/23/24 01:00 Temperature Pulse Rate 82 81 82 Respiratory Rate 19 20 17 Blood Pressure 71/56 L 72/56 L 72/55 L Pulse Oximetry 100 100 100 Oxygen Delivery 08/23/24 01:51 08/23/24 02:00 08/23/24 02:15 Temperature Pulse Rate 78 81 Respiratory Rate 19 23 H Blood Pressure 72/58 L 82/62 L 77/56 L Pulse Oximetry 95 96 Oxygen Delivery 08/23/24 02:30 08/23/24 02:37 08/23/24 02:45 Temperature Pulse Rate 76 74 73 Respiratory Rate 19 20 19 Blood Pressure 70/49 L 71/59 L 66/54 L Pulse Oximetry 97 96 Oxygen Delivery 08/23/24 02:46 08/23/24 02:48 08/23/24 04:15 Temperature Pulse Rate 74 73 68 Respiratory Rate 19 19 22 H Blood Pressure 73/53 L 82/62 L Pulse Oximetry 96 96 100 Oxygen Delivery 08/23/24 04:30 08/23/24 04:45 08/23/24 04:46 Temperature Pulse Rate 70 68 68 Respiratory Rate 20 18 Blood Pressure 74/54 L 78/57 L 78/57 L Pulse Oximetry 98 98 Oxygen Delivery 08/23/24 05:00 08/23/24 05:24 08/23/24 05:37 Temperature Pulse Rate 65 76 78 Respiratory Rate 20 18 Blood Pressure 108/58 L 123/60 109/63 Pulse Oximetry 97 96 Oxygen Delivery 08/23/24 05:39 08/23/24 05:42 08/23/24 05:45 Temperature Pulse Rate 83 81 74 Respiratory Rate 18 19 Blood Pressure 78/47 L 96/57 L 93/53 L Pulse Oximetry 95 95 Oxygen Delivery 08/23/24 05:45 08/23/24 05:46 08/23/24 05:48 Temperature Pulse Rate 75 72 72 Respiratory Rate 19 18 19 Blood Pressure 93/53 L 100/63 112/65 Pulse Oximetry 96 97 96 Oxygen Delivery 08/23/24 05:51 08/23/24 05:54 08/23/24 05:58 Temperature Pulse Rate 65 77 82 Respiratory Rate 17 17 15 Blood Pressure 107/64 123/64 116/60 Pulse Oximetry 96 95 96 Oxygen Delivery 08/23/24 05:59 08/23/24 06:00 08/23/24 06:01 Temperature Pulse Rate 76 75 71 Respiratory Rate 22 H 21 H 29 H Blood Pressure 117/64 Pulse Oximetry 96 95 95 Oxygen Delivery 08/23/24 06:03 08/23/24 06:06 08/23/24 06:09 Temperature Pulse Rate 75 76 74 Respiratory Rate 17 17 17 Blood Pressure 111/66 117/70 110/61 Pulse Oximetry 94 95 95 Oxygen Delivery 08/23/24 06:12 08/23/24 06:15 08/23/24 06:16 Temperature Pulse Rate 73 73 74 Respiratory Rate 17 18 16 Blood Pressure 116/56 L 102/63 Pulse Oximetry 95 94 95 Oxygen Delivery 08/23/24 06:18 08/23/24 06:21 08/23/24 06:24 Temperature Pulse Rate 73 75 77 Respiratory Rate 17 16 17 Blood Pressure 121/66 113/65 113/67 Pulse Oximetry 95 95 95 Oxygen Delivery 08/23/24 06:27 08/23/24 06:30 08/23/24 06:31 Temperature Pulse Rate 76 74 79 Respiratory Rate 21 H 18 17 Blood Pressure 109/65 117/61 Pulse Oximetry 94 95 95 Oxygen Delivery 08/23/24 06:33 08/23/24 06:43 08/23/24 06:45 Temperature Pulse Rate 78 75 71 Respiratory Rate 18 22 H 19 Blood Pressure 110/61 114/82 127/82 Pulse Oximetry 95 95 96 Oxygen Delivery 08/23/24 07:00 08/23/24 07:30 08/23/24 08:00 Temperature Pulse Rate 67 72 82 Respiratory Rate Blood Pressure 80/56 L 139/77 107/70 Pulse Oximetry Oxygen Delivery 08/23/24 08:00 08/23/24 08:00 08/23/24 08:00 Temperature 28.3 C L Pulse Rate 83 83 70 Respiratory Rate 15 16 Blood Pressure 107/70 Pulse Oximetry 93 94 Oxygen Delivery Room Air 08/23/24 09:20 08/23/24 10:00 08/23/24 10:00 Temperature Pulse Rate 65 73 79 Respiratory Rate Blood Pressure 86/62 L 118/78 Pulse Oximetry Oxygen Delivery 08/23/24 10:00 08/23/24 11:00 08/23/24 12:00 Temperature Pulse Rate 75 71 66 Respiratory Rate 19 Blood Pressure 121/61 118/78 116/72 Pulse Oximetry 99 Oxygen Delivery 08/23/24 12:00 08/23/24 12:00 08/23/24 12:00 Temperature 37.2 C Pulse Rate 72 66 66 Respiratory Rate 16 16 Blood Pressure 116/72 Pulse Oximetry 98 98 Oxygen Delivery Room Air 08/23/24 14:00 08/23/24 14:00 08/23/24 14:00 Temperature Pulse Rate 74 79 74 Respiratory Rate 16 Blood Pressure 138/71 138/71 Pulse Oximetry 98 Oxygen Delivery 08/23/24 15:45 08/23/24 16:00 08/23/24 16:00 Temperature Pulse Rate 80 70 69 Respiratory Rate Blood Pressure 86/59 L 101/63 Pulse Oximetry Oxygen Delivery 08/23/24 16:00 08/23/24 16:00 08/23/24 17:30 Temperature Pulse Rate 70 70 73 Respiratory Rate 17 16 Blood Pressure 106/63 105/72 Pulse Oximetry 100 98 Oxygen Delivery Room Air 08/23/24 18:00 08/23/24 18:00 08/23/24 18:00 Temperature Pulse Rate 73 72 72 Respiratory Rate 18 Blood Pressure 97/64 L 97/64 L Pulse Oximetry 98 Oxygen Delivery Exam Narrative: Lungs are clear to auscultation bilaterally Cardiovascular regular rate rhythm no murmurs Abdomen slight tenderness in the right upper quadrant Extremities no edema Results Labs 08/22/24 21:03 08/23/24 06:00 Labs: Short CBC 08/22/24 Range/Units 21:03 WBC 0.9 L* (4.5-10.0) K/mm3 Hgb 12.0 L (14.0-18.0) g/dL Hct 37.4 L (42.0-52.0) % Plt Count 146 L (150-375) k/mm3 BMP 08/22/24 08/23/24 21:03 06:00 Sodium 140 Potassium 3.2 L Chloride 108 H Carbon Dioxide 23 BUN 26 H D Creatinine 1.15 1.29 Glucose 82 Calcium 8.9 Cardiac Enzymes 08/22/24 08/22/24 08/22/24 Range/Units 21:03 22:27 22:27 Total Creatine Kinase Cancelled 82 Troponin I < 0.012 (0.000-0.034) ng/mL Liver Function 08/22/24 Range/Units 21:03 Total Bilirubin 1.1 (0.2-1.3) mg/dL AST 499 H (17-59) U/L ALT 224 H (6-50) U/L Alkaline Phosphatase 247 H (38-126) U/L Albumin 3.8 (3.5-5.1) g/dL Urine 08/23/24 Range/Units 00:22 Urine Color Dark yellow (Yellow) Urine Appearance Cloudy H (Clear) Urine pH 5.5 (5.0-9.0) Ur Specific [place] 1.025 (1.001-1.035) Urine Protein 2+ H (Negative) mg/dL Urine Glucose (UA) Negative (Negative) mg/dL
[2024-08-23] MEDS: ACETAMINOPHEN 325 MG TABLET 650 MG PO (20:53)
[2024-08-23] MEDS: MICONAZOLE NITRATE 2% CREAM 30 GM TUBE 1 APPLIC TOPICAL (20:58)
[2024-08-23] MEDS: VANCOMYCIN 1,500 MG/NS 500 ML 1,500 MG/500 ML BAG 250 MG IVPB (23:07)
[2024-08-24] VITALS (30 sets, daily range): BP systolic 85–132; BP diastolic 56–80; PULSE 54–80; RESP 15–21; TEMP 36.2–36.9; O2SAT 95–100
[2024-08-24 01:12] LABS: Iron 20 ug/dL (49-181)
[2024-08-24 01:21] LABS: Folic Acid 5.5 ng/mL (2.76->20); Percent Iron Saturation 9 % (20-50)
[2024-08-24 06:07] LABS: Hematocrit 29.2 % (42.0-52.0); Hemoglobin 9.5 g/dL (14.0-18.0); Immature Platelet Fraction Pct 2.2 % (0.9-11.2); Mean Corpuscular HGB Conc 32.5 g/dl (32-36); Mean Corpuscular Hemoglobin 34.3 pg (26-34); Mean Corpuscular Volume 105.4 fl (80-100); Mean Platelet Volume 9.7 fl (7.4-10.4); Platelet Count Result 90 k/mm3 (150-375); Red Blood Count 2.77 M/mm3 (4.6-6.20); White Blood Count 16.7 K/mm3 (4.5-10.0)
[2024-08-24] MEDS: CENTRAL LINE FLUSH 10 ML IV PUSH ×3 (06:12→20:36)
[2024-08-24 06:28] LABS: Alanine Aminotransferase 234 U/L (6-50); Albumin Level 2.3 g/dL (3.5-5.1); Alkaline Phosphatase 162 U/L (38-126); Anion Gap 6 mmol/L (4-12); Aspartate Amino Transferase 207 U/L (17-59); Bilirubin,Total 1.3 mg/dL (0.2-1.3); Blood Urea Nitrogen 17 mg/dL (9-20); Calcium 7.4 mg/dL (8.4-10.2); Carbon Dioxide 18 mmol/L (22-30); Chloride 114 mmol/L (98-107); Estimated CRCL calculation 59 ml/min; Estimated Glomerular Filt Rate > 60; Glucose 129 mg/dL (65-110); Magnesium 1.7 mg/dL (1.6-2.3); Sodium 138 mmol/L (137-145); Total Protein 5.2 g/dL (6.3-8.2)
[2024-08-24] MEDS: MEROPENEM 1 GM/NS 100 ML 1 GM/100 ML BAG IVPB ×2 (08:35→20:25)
[2024-08-24] MEDS: TAMSULOSIN HCL 0.4 MG CAPSULE PO (08:40)
[2024-08-24] MEDS: MIDODRINE HCL 2.5 MG TABLET 5 MG PO ×3 (08:40→17:59)
[2024-08-24] MEDS: MAGNESIUM SULF 2 GM/WATER 50ML 2 GM/50 ML BAG IVPB (08:41)
--- NOTE | 2024-08-24 09:24 | P.PNINT_ITS ---
Progress Note: A&P Assessment and Plan (1) Septic shock: Code(s): A41.9 - Sepsis, unspecified organism; R65.21 - Severe sepsis with septic shock Status: Acute Assessment and Plan: Septic shock secondary to sepsis from right upper quadrant intra abdominal abscess in the setting of neutropenia from chemotherapy. Patient has a dropped gallstone at that location and also had dental work done few weeks ago which could have led to seeding of the stone. Case discussed with Radiology and General surgery General surgery recommended ultrasound-guided drain placement to drain abscess at this time. Drainage was deferred yesterday by IR to minimize risk of bleeding considering patient was on aspirin Plavix. I anticipate her procedure will be done today Blood cultures a growing E coli Continue meropenem to cover for anaerobes Discontinue vancomycin Hold further IV fluids Continue Levophed titration to maintain mean arterial pressure Add 25% albumin and midodrine (2) Coronary artery disease: Code(s): I25.10 - Atherosclerotic heart disease of [place] coronary artery without angina pectoris Status: Acute Assessment and Plan: History of coronary disease which was being medically managed. Beta-faraz is on hold due to sepsis shock shock Plavix and aspirin held for invasive procedures (3) Thrombocytopenia: Code(s): D69.6 - Thrombocytopenia, unspecified Status: Acute Assessment and Plan: Secondary to chemotherapy and sepsis. Monitor (4) Intra-abdominal abscess: Code(s): K65.1 - Peritoneal abscess Status: Acute Assessment and Plan: See above (5) Right sided abdominal pain: Code(s): R10.9 - Unspecified abdominal pain Status: Acute Assessment and Plan: Secondary to abscess. See above (6) Kidney stones: Code(s): N20.0 - Calculus of kidney Status: Acute Assessment and Plan: Nonobstructing kidney stone. Monitor (7) Urethral stricture: Code(s): N35.919 - Unspecified urethral stricture, male, unspecified site Status: Acute Assessment and Plan: Patient has history of urethral stricture status post dilation Avoid Lima insertion as long as patient is able to urinate (8) Anemia: Qualifiers: Anemia type: iron deficiency Iron deficiency anemia type: chronic blood loss Qualified Code(s): D50.0 - Iron deficiency anemia secondary to blood loss (chronic) Code(s): D64.9 - Anemia, unspecified Status: Acute Assessment and Plan: Patient has chronic anemia. Hemoglobin appears close to baseline. Monitor (9) Neutropenia with fever: Code(s): D70.9 - Neutropenia, unspecified; R50.81 - Fever presenting with conditions classified elsewhere Status: Acute Assessment and Plan: Neutropenia precautions Oncology consult Patient was given zarxio WBC improving (10) Colon cancer: Code(s): C18.9 - Malignant neoplasm of colon, unspecified Status: Acute Assessment and Plan: History of colon cancer status post right hemicolectomy and is currently on Fruquintinib p.o. which will be held. Will try to obtain records from [facility] (11) Pedal edema: Code(s): R60.0 - Localized edema Status: Resolved Assessment and Plan: Mild bilateral pedal edema. Cautious IV fluids per sepsis Plan DVT prophylaxis -SCD. Will start anticoagulation once patient undergoes drain placement Nutrition - NPO Code Status -patient's son stated that patient is Full Code but would not want to be on mechanical ventilation for prolonged period of time. Discuss case with Internal Medicine and General surgery Total Critical Care Time - 30 minutes Due to a high probability of clinically significant, life threatening deterioration, the patient required my highest level of preparedness to intervene emergently and I personally spent this critical care time directly and personally managing the patient. This critical care time included obtaining a history; examining the patient; pulse oximetry; ordering and review of studies; arranging urgent treatment with development of a management plan; evaluation of patient's response to treatment; frequent reassessment; and discussions with other providers. It was exclusive of separately billable procedures and treating other patients and teaching time. Please see Assessment and Plan section and the rest of the note for further information on patient assessment and treatment Subjective Date/time seen: 08/24/24 Overnight events reviewed. Afebrile On room air Continues to be on Levophed at 3 my Acceptable urine output Complains of pain in the right upper quadrant. Denies any other complaints Review of Systems Review of Systems: All systems reviewed & are unremarkable except as noted in HPI and below (HPI) Exam Narrative: General: Pt is alert awake and in NAD Lungs/Chest: Trachea central Clear BS B/L, No crackles or wheezing. Cardiac: RRR. Normal S1 S2. No murmurs Circulation: Pedal pulses are intact and symmetrical. Abdomen: Normal bowel sounds.. Soft. Mild tenderness palpation right upper quadrant Scar from past surgical incision Extremities: Mild bilateral pitting edema. Warm : Lima in place Neurologic: Follows commands. Moves all 4 extremities PERRL AO x3 Skin: No Rash Objective Data Vital Signs Vital Signs: Vital Signs - 24 hr 08/23/24 10:00 08/23/24 10:00 08/23/24 10:00 Temperature Pulse Rate 73 79 75 Respiratory Rate 19 Blood Pressure 118/78 121/61 Pulse Oximetry 99 Oxygen Delivery 08/23/24 11:00 08/23/24 12:00 08/23/24 12:00 Temperature Pulse Rate 71 66 72 Respiratory Rate Blood Pressure 118/78 116/72 Pulse Oximetry Oxygen Delivery 08/23/24 12:00 08/23/24 12:00 08/23/24 14:00 Temperature 37.2 C Pulse Rate 66 66 74 Respiratory Rate 16 16 Blood Pressure 116/72 138/71 Pulse Oximetry 98 98 Oxygen Delivery Room Air 08/23/24 14:00 08/23/24 14:00 08/23/24 15:45 Temperature Pulse Rate 79 74 80 Respiratory Rate 16 Blood Pressure 138/71 86/59 L Pulse Oximetry 98 Oxygen Delivery 08/23/24 16:00 08/23/24 16:00 08/23/24 16:00 Temperature Pulse Rate 70 69 70 Respiratory Rate 17 Blood Pressure 101/63 106/63 Pulse Oximetry 100 Oxygen Delivery 08/23/24 16:00 08/23/24 17:30 08/23/24 18:00 Temperature Pulse Rate 70 73 73 Respiratory Rate 16 Blood Pressure 105/72 97/64 L Pulse Oximetry 98 Oxygen Delivery Room Air 08/23/24 18:00 08/23/24 18:00 08/23/24 18:30 Temperature Pulse Rate 72 72 72 Respiratory Rate 18 Blood Pressure 97/64 L 90/54 L Pulse Oximetry 98 Oxygen Delivery 08/23/24 20:00 08/23/24 20:00 08/23/24 20:00 Temperature 36.8 C Pulse Rate 74 77 Respiratory Rate 20 Blood Pressure 100/74 100/74 Pulse Oximetry 97 97 Oxygen Delivery Room Air 08/23/24 20:00 08/23/24 20:45 08/23/24 20:45 Temperature Pulse Rate 78 73 73 Respiratory Rate 19 Blood Pressure 115/62 115/62 Pulse Oximetry 99 Oxygen Delivery 08/23/24 21:00 08/23/24 21:00 08/23/24 22:00 Temperature Pulse Rate 75 73 83 Respiratory Rate 21 H 26 H Blood Pressure 98/73 L 98/73 L 132/76 Pulse Oximetry 98 98 Oxygen Delivery 08/23/24 22:00 08/23/24 22:00 08/24/24 00:00 Temperature Pulse Rate 83 83 Respiratory Rate Blood Pressure 132/76 Pulse Oximetry 95 Oxygen Delivery Room Air 08/24/24 00:00 08/24/24 00:00 08/24/24 00:00 Temperature 36.9 C Pulse Rate 80 76 80 Respiratory Rate 19 Blood Pressure 89/56 L 89/56 L Pulse Oximetry 95 Oxygen Delivery 08/24/24 00:15 08/24/24 00:30 08/24/24 02:00 Temperature Pulse Rate 77 78 76 Respiratory Rate Blood Pressure 88/58 L 98/59 L 109/61 Pulse Oximetry Oxygen Delivery 08/24/24 02:00 08/24/24 02:00 08/24/24 04:00 Temperature Pulse Rate 76 76 Respiratory Rate 19 Blood Pressure 109/61 Pulse Oximetry 95 97 Oxygen Delivery Room Air 08/24/24 04:00 08/24/24 04:00 08/24/24 04:00 Temperature 36.9 C Pulse Rate 70 70 69 Respiratory Rate 17 Blood Pressure 121/70 121/70 Pulse Oximetry 97 Oxygen Delivery 08/24/24 06:00 08/24/24 06:00 08/24/24 06:00 Temperature Pulse Rate 72 72 72 Respiratory Rate 16 Blood Pressure 128/80 128/80 Pulse Oximetry 97 Oxygen Delivery 08/24/24 08:00 08/24/24 08:00 08/24/24 08:30 Temperature 36.4 C Pulse Rate 78 94 73 Respiratory Rate 16 Blood Pressure 130/74 106/67 Pulse Oximetry 98 Oxygen Delivery 08/24/24 08:45 08/24/24 09:00 Temperature Pulse Rate 71 62 Respiratory Rate Blood Pressure 93/58 L 85/59 L Pulse Oximetry Oxygen Delivery Intake/Output Intake/Output: Intake & Output 08/21/24 08/22/24 08/23/24 08/24/24 23:59 23:59 23:59 23:59 Intake Total 2049 3607.1 1010.9 Output Total 700 400 Balance 2049 2907.1 610.9 Meds/Results Medications: Active Medications Generic Name Dose Route Start Last Admin Trade Name Freq PRN Reason Stop Dose Admin Acetaminophen 650 mg 08/23/24 05:45 08/23/24 20:53 Acetaminophen 325 Mg Tablet PO 650 mg Q4H PRN Administration Mild Pain (1-3) or Fever Filgrastim-Sndz 300 mcg 08/24/24 09:00 08/24/24 09:05 Filgrastim-Sndz 300 Mcg/0.5 Ml Syringe SUB-Q Not Given DAILY CORINNE Norepinephrine Bitartrate 8 mg in 250 mls @ 5.625 mls/hr 08/23/24 07:45 08/24/24 09:00 Levophed 8 Mg/D5w 250 Ml IV CONT 3 mcg/min .Q24H CORINNE 5.63 mls/hr Titration Protocol 3 MCG/MIN Meropenem 1 gm in 100 mls @ 200 mls/hr 08/23/24 09:00 08/24/24 09:05 IVPB Infused Q12HR CORINNE Infusion Magnesium Sulfate 2 gm in 50 mls @ 25 mls/hr 08/24/24 07:30 08/24/24 08:41 Magnesium Sulf 2 Gm/Water 50ml IVPB 08/24/24 09:29 25 mls/hr ONCE ONE Administration Albumin Human 100 mls @ 60 mls/hr 08/24/24 12:00 Albutein IVPB 08/25/24 07:39 Q6HR [facility] Miconazole Nitrate 1 applic 08/23/24 10:40 08/23/24 20:58 Miconazole Nitrate 2% Cream 30 Gm Tube TOPICAL 1 applic Q12HR [facility] Administration Midodrine 5 mg 08/24/24 09:00 08/24/24 08:40 Midodrine Hcl 2.5 Mg Tablet PO 5 mg TID CORINNE Administration Ondansetron HCl 4 mg 08/23/24 05:45 Ondansetron Inj 4 Mg/2 Ml Vial IV PUSH Q4H PRN Nausea Sodium Chloride 10 ml 08/23/24 14:00 08/24/24 06:12 Central Line Flush IV PUSH 10 ml Q8HR CORINNE Administration Sodium Chloride 10 ml 08/23/24 11:20 Central Line Flush IV PUSH PRN PRN with TPN bag changes Sodium Chloride 20 ml 08/23/24 11:20 Central Line Flush IV PUSH PRN PRN after blood draws Tamsulosin HCl 0.4 mg 08/23/24 09:00 08/24/24 08:40 Tamsulosin Hcl 0.4 Mg Capsule PO 0.4 mg QAM CORINNE Administration Radiology Results: ITS Impressions Shoulder X-Ray 08/22/24 23:34 IMPRESSION: No acute osseous finding the left shoulder. Abdomen/Pelvis CT 08/23/24 05:20 Impression: 6.2 x 2.1 x 5.0 cm abscess along the inferior margin of the right hepatic lobe, possibly related to a dropped gallstone. Suspected extension into the inferior hepatic lobe with a 2.2 cm fluid attenuation area in the liver in this region, which is new from prior exam. 3.3 cm distal abdominal aortic aneurysm. Minimal pleural effusions with mild bibasilar pulmonary edema/atelectasis. 9 mm nonobstructing left renal stone. Chest X-Ray 08/23/24 11:22 IMPRESSION: 1. Right PICC line tip in the midsuperior vena cava. 2. Mild bibasilar opacities which could represent atelectasis, mild pulmonary edema or pneumonia. Labs Labs: Laboratory Results - last 24 hr 08/23/24 08/24/24 23:46 05:54 WBC 16.7 H RBC 2.77 L Hgb 9.5 L Hct 29.2 L MCV 105.4 H MCH 34.3 H MCHC 32.5 RDW 15.0 H Plt Count 90 L MPV 9.7 % Immature Plt Fraction 2.2 Sodium 138 Potassium 4.0 Chloride 114 H Carbon Dioxide 18 L Anion Gap 6 BUN 17 Creatinine 0.77 Estim Creat Clear Calc 59 Estimated GFR > 60 Glucose 129 H Calcium 7.4 L Magnesium 1.7 Iron 20 L TIBC 212 L % Saturation 9 L Ferritin 1330.00 H Total Bilirubin 1.3 AST 207 H ALT 234 H Alkaline Phosphatase 162 H Total Protein 5.2 L Albumin 2.3 L Vitamin B12 578.0 Folate 5.5
[2024-08-24] MEDS: MICONAZOLE NITRATE 2% CREAM 30 GM TUBE 1 APPLIC TOPICAL ×2 (09:43→20:36)
[2024-08-24] MEDS: CALCIUM GLUC 2,000 MG/NS 100ML 2,000 MG/100 ML BAG 100 MG IVPB (10:34)
--- NOTE | 2024-08-24 10:43 | P.PNGS_ITS ---
Progress Note: A&P Assessment and Plan (1) Intra-abdominal abscess: Code(s): K65.1 - Peritoneal abscess Status: Acute Assessment and Plan: * Right upper quadrant abscess likely related to a dropped gallstone. Patient's son agrees to proceed with percutaneous drainage. * We will order percutaneous drainage in IR and will proceed when radiologist feels is appropriate with his Plavix being held * Continue IV antibiotics (2) Septic shock: Code(s): A41.9 - Sepsis, unspecified organism; R65.21 - Severe sepsis with septic shock Status: Acute Assessment and Plan: * Source is likely related to the intraabdominal abscess. Blood cultures growing E coli. * Plan to proceed with percutaneous drainage in IR and will obtain cultures at that time. * Wean pressors as tolerated. Continue critical care management (3) History of colon cancer: Code(s): Z85.038 - Personal history of other malignant neoplasm of large intestine Status: Acute (4) Hx laparoscopic cholecystectomy: Code(s): Z90.49 - Acquired absence of other specified parts of digestive tract Status: Acute (5) Antiplatelet or antithrombotic long-term use: Code(s): Z79.02 - penitentiary (current) use of antithrombotics/antiplatelets Status: Acute Assessment and Plan: * Continue to hold Plavix (6) Coronary artery disease: Code(s): I25.10 - Atherosclerotic heart disease of [place] coronary artery without angina pectoris Status: Acute (7) Neutropenia with fever: Code(s): D70.9 - Neutropenia, unspecified; R50.81 - Fever presenting with conditions classified elsewhere Status: Acute Assessment and Plan: * Heme Onc following. WBC count up to 16,000 today (8) Thrombocytopenia: Code(s): D69.6 - Thrombocytopenia, unspecified Status: Acute Assessment and Plan: * Platelets 90,000 Plan I have discussed the patient's case and plan of care with Dr. Graham. Subjective Subjective Date/Time Seen: 08/24/24 10:43 Interval history: Patient seen in ICU with the son at the bedside who assists in translation. He is not having any abdominal pain, but reports having an episode of chills overnight similar to how he presented prior to admission. He has been afebrile overnight. He is still on Levophed infusion, which he is at a slightly lower rate this morning. No other acute events overnight. Exam Const: General: comfortable and no acute distress GI: GI Palp: Yes Soft to palpation, Yes Tenderness to palpation present (GI) (Right upper quadrant), No Guarding due to palpation present (GI), No Hernia present and No Rebound tenderness present Auscultation: normal bowel sounds Objective Data Vital Signs Vital Signs: Vital Signs - 24 hr 08/23/24 11:00 08/23/24 12:00 08/23/24 12:00 Temperature Pulse Rate 71 66 72 Respiratory Rate Blood Pressure 118/78 116/72 Pulse Oximetry Oxygen Delivery 08/23/24 12:00 08/23/24 12:00 08/23/24 14:00 Temperature 98.9 F Pulse Rate 66 66 74 Respiratory Rate 16 16 Blood Pressure 116/72 138/71 Pulse Oximetry 98 98 Oxygen Delivery Room Air 08/23/24 14:00 08/23/24 14:00 08/23/24 15:45 Temperature Pulse Rate 79 74 80 Respiratory Rate 16 Blood Pressure 138/71 86/59 L Pulse Oximetry 98 Oxygen Delivery 08/23/24 16:00 08/23/24 16:00 08/23/24 16:00 Temperature Pulse Rate 70 69 70 Respiratory Rate 17 Blood Pressure 101/63 106/63 Pulse Oximetry 100 Oxygen Delivery 08/23/24 16:00 08/23/24 17:30 08/23/24 18:00 Temperature Pulse Rate 70 73 73 Respiratory Rate 16 Blood Pressure 105/72 97/64 L Pulse Oximetry 98 Oxygen Delivery Room Air 08/23/24 18:00 08/23/24 18:00 08/23/24 18:30 Temperature Pulse Rate 72 72 72 Respiratory Rate 18 Blood Pressure 97/64 L 90/54 L Pulse Oximetry 98 Oxygen Delivery 08/23/24 20:00 08/23/24 20:00 08/23/24 20:00 Temperature 98.2 F Pulse Rate 74 77 Respiratory Rate 20 Blood Pressure 100/74 100/74 Pulse Oximetry 97 97 Oxygen Delivery Room Air 08/23/24 20:00 08/23/24 20:45 08/23/24 20:45 Temperature Pulse Rate 78 73 73 Respiratory Rate 19 Blood Pressure 115/62 115/62 Pulse Oximetry 99 Oxygen Delivery 08/23/24 21:00 08/23/24 21:00 08/23/24 22:00 Temperature Pulse Rate 75 73 83 Respiratory Rate 21 H 26 H Blood Pressure 98/73 L 98/73 L 132/76 Pulse Oximetry 98 98 Oxygen Delivery 08/23/24 22:00 08/23/24 22:00 08/24/24 00:00 Temperature Pulse Rate 83 83 Respiratory Rate Blood Pressure 132/76 Pulse Oximetry 95 Oxygen Delivery Room Air 08/24/24 00:00 08/24/24 00:00 08/24/24 00:00 Temperature 98.4 F Pulse Rate 80 76 80 Respiratory Rate 19 Blood Pressure 89/56 L 89/56 L Pulse Oximetry 95 Oxygen Delivery 08/24/24 00:15 08/24/24 00:30 08/24/24 02:00 Temperature Pulse Rate 77 78 76 Respiratory Rate Blood Pressure 88/58 L 98/59 L 109/61 Pulse Oximetry Oxygen Delivery 08/24/24 02:00 08/24/24 02:00 08/24/24 04:00 Temperature Pulse Rate 76 76 Respiratory Rate 19 Blood Pressure 109/61 Pulse Oximetry 95 97 Oxygen Delivery Room Air 08/24/24 04:00 08/24/24 04:00 08/24/24 04:00 Temperature 98.5 F Pulse Rate 70 70 69 Respiratory Rate 17 Blood Pressure 121/70 121/70 Pulse Oximetry 97 Oxygen Delivery 08/24/24 06:00 08/24/24 06:00 08/24/24 06:00 Temperature Pulse Rate 72 72 72 Respiratory Rate 16 Blood Pressure 128/80 128/80 Pulse Oximetry 97 Oxygen Delivery 08/24/24 08:00 08/24/24 08:00 08/24/24 08:00 Temperature 97.6 F Pulse Rate 78 73 Respiratory Rate 16 Blood Pressure 130/74 Pulse Oximetry 98 99 Oxygen Delivery Room Air 08/24/24 08:30 08/24/24 08:45 08/24/24 09:15 Temperature Pulse Rate 73 71 62 Respiratory Rate Blood Pressure 106/67 93/58 L 85/59 L Pulse Oximetry Oxygen Delivery 08/24/24 09:30 08/24/24 09:40 08/24/24 09:45 Temperature Pulse Rate 69 76 Respiratory Rate Blood Pressure 102/61 109/75 Pulse Oximetry 99 Oxygen Delivery Room Air 08/24/24 10:00 08/24/24 10:00 08/24/24 10:00 Temperature Pulse Rate 62 65 64 Respiratory Rate 15 Blood Pressure 91/61 L 91/64 L Pulse Oximetry 96 Oxygen Delivery 08/24/24 10:04 Temperature 97.2 F L Pulse Rate Respiratory Rate Blood Pressure Pulse Oximetry Oxygen Delivery Intake/Output Intake/Output: Intake & Output 08/21/24 08/22/24 08/23/24 08/24/24 23:59 23:59 23:59 23:59 Intake Total 2049 3607.1 2064.5 Output Total 700 400 Balance 2049 2907.1 1664.5 Meds/Results Medications: Active Medications Generic Name Dose Route Start Last Admin Trade Name Freq PRN Reason Stop Dose Admin Acetaminophen 650 mg 08/23/24 05:45 08/23/24 20:53 Acetaminophen 325 Mg Tablet PO 650 mg Q4H PRN Administration Mild Pain (1-3) or Fever Filgrastim-Sndz 300 mcg 08/24/24 09:00 08/24/24 09:05 Filgrastim-Sndz 300 Mcg/0.5 Ml Syringe SUB-Q Not Given DAILY CORINNE Norepinephrine Bitartrate 8 mg in 250 mls @ 3.75 mls/hr 08/23/24 07:45 08/24/24 10:00 Levophed 8 Mg/D5w 250 Ml IV CONT 2 mcg/min .Q24H CORINNE 3.75 mls/hr Titration Protocol 2 MCG/MIN Meropenem 1 gm in 100 mls @ 200 mls/hr 08/23/24 09:00 08/24/24 09:05 IVPB Infused Q12HR [facility] Infusion Albumin Human 100 mls @ 60 mls/hr 08/24/24 12:00 Albutein IVPB 08/25/24 07:39 Q6HR [facility] Miconazole Nitrate 1 applic 08/23/24 10:40 08/24/24 09:43 Miconazole Nitrate 2% Cream 30 Gm Tube TOPICAL 1 applic Q12HR [facility] Administration Midodrine 5 mg 08/24/24 09:00 08/24/24 08:40 Midodrine Hcl 2.5 Mg Tablet PO 5 mg TID CORINNE Administration Ondansetron HCl 4 mg 08/23/24 05:45 Ondansetron Inj 4 Mg/2 Ml Vial IV PUSH Q4H PRN Nausea Sodium Chloride 10 ml 08/23/24 14:00 08/24/24 06:12 Central Line Flush IV PUSH 10 ml Q8HR [facility] Administration Sodium Chloride 10 ml 08/23/24 11:20 Central Line Flush IV PUSH PRN PRN with TPN bag changes Sodium Chloride 20 ml 08/23/24 11:20 Central Line Flush IV PUSH PRN PRN after blood draws Tamsulosin HCl 0.4 mg 08/23/24 09:00 08/24/24 08:40 Tamsulosin Hcl 0.4 Mg Capsule PO 0.4 mg QAM CORINNE Administration Radiology Results: ITS Impressions Shoulder X-Ray 08/22/24 23:34 IMPRESSION: No acute osseous finding the left shoulder. Abdomen/Pelvis CT 08/23/24 05:20 Impression: 6.2 x 2.1 x 5.0 cm abscess along the inferior margin of the right hepatic lobe, possibly related to a dropped gallstone. Suspected extension into the inferior hepatic lobe with a 2.2 cm fluid attenuation area in the liver in this region, which is new from prior exam. 3.3 cm distal abdominal aortic aneurysm. Minimal pleural effusions with mild bibasilar pulmonary edema/atelectasis. 9 mm nonobstructing left renal stone. Chest X-Ray 08/23/24 11:22 IMPRESSION: 1. Right PICC line tip in the midsuperior vena cava. 2. Mild bibasilar opacities which could represent atelectasis, mild pulmonary edema or pneumonia. Labs Labs: Laboratory Results - last 24 hr 08/23/24 08/24/24 23:46 05:54 WBC 16.7 H RBC 2.77 L Hgb 9.5 L Hct 29.2 L MCV 105.4 H MCH 34.3 H MCHC 32.5 RDW 15.0 H Plt Count 90 L MPV 9.7 % Immature Plt Fraction 2.2 Sodium 138 Potassium 4.0 Chloride 114 H Carbon Dioxide 18 L Anion Gap 6 BUN 17 Creatinine 0.77 Estim Creat Clear Calc 59 Estimated GFR > 60 Glucose 129 H Calcium 7.4 L Magnesium 1.7 Iron 20 L TIBC 212 L % Saturation 9 L Ferritin 1330.00 H Total Bilirubin 1.3 AST 207 H ALT 234 H Alkaline Phosphatase 162 H Total Protein 5.2 L Albumin 2.3 L Vitamin B12 578.0 Folate 5.5
--- NOTE | 2024-08-24 11:04 | PCFNICU ---
ICU Rounding Note: Pt current nutrition is NPO. Last recorded weight is 76.3 kg, up from 73.6 kg on admit. Bowel Motility: Last reported BM 08/24 Labs Reviewed: Glu 129, Alb 2.3, Hct 29.2, Hgb 9.5 Meds Noted:Meropenem, Vancomycin, Levophed Skin: WNL Additional Notes: Patient had clear liquid tray for breakfast, 100% reported. NPO for procedure today. Agree with diet orders at this time. Following daily in ICU rounds.
[2024-08-24] MEDS: ALBUMIN HUMAN 25% 25 GM/100 ML 100 ML IVPB ×2 (12:01→18:03)
[2024-08-24] MEDS: ACETAMINOPHEN 325 MG TABLET 650 MG PO (12:05)
--- NOTE | 2024-08-24 12:49 | PM.IMPN ---
Progress Note: A&P Assessment and Plan (1) Septic shock: Code(s): A41.9 - Sepsis, unspecified organism; R65.21 - Severe sepsis with septic shock Status: Acute Assessment and Plan: Patient with neutropenic fever with HoTN present on admission. Lactic acid was 4.1. CT A/P showing a 6.2 x 2.1 x 5.0 cm abscess along the inferior margin of the right hepatic lobe, possibly related to a dropped gallstone with suspected extension into the inferior hepatic lobe with a 2.2 cm fluid attenuation area in the liver in this region CT Ch/A/P 05/22/23 does show a dropped GS in the same area. [place] patient had a dropped GS from Jan 2023 surgery with inflammation causing intermittent right flank pain. This may have become secondarily infected due to immunosuppressive medications and recent teeth extraction. BCx positive EColi in both sets Vanco and Cefepime started in ED. Cefepime changed to Meropenem 08/24. General Surgery consulted. Weaned off Levophed today. Follow up on BCx results. Vanco stopped. Drain placement today. (2) Neutropenia with fever: Code(s): D70.9 - Neutropenia, unspecified; R50.81 - Fever presenting with conditions classified elsewhere Status: Acute Assessment and Plan: WBC 900 with ANC 738. Neutropenic precautions. Oncology consulted -- WBC better today at 16.7K. -- Filgrastim ordered but not given. Hgb 12 but dropped to 9.5. Has chronic anemia. Monitor HH. -- Iron studies consistent with anemia of chronic disease. B12/Folate levels okay. Plt count 146K but dropped to 90K now felt related to sepsis. Continue to monitor. As above. (3) Intra-abdominal abscess: Code(s): K65.1 - Peritoneal abscess Status: Acute Assessment and Plan: CT A/P showing a 6.2cm abscess along the inferior margin of the right hepatic lobe with extension into the inferior hepatic lobe. Again noted is the dropped gallstone in this area. CT Ch/A/P 05/22/23 does show a dropped GS in this same area. [place] patient had a dropped GS from Jan 2023 GB surgery with inflammation causing intermittent right flank pain. This may have become secondarily infected due to immunosuppressive medications and recent teeth extraction. Drain placement planned As above. 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 He is being followed by Dr Leung. He was on Lonsurf but was having issues with anemia so recently changed to oral fruquintinib July 18. Request records. As above (5) Elevated LFTs: Code(s): R79.89 - Other specified abnormal findings of blood chemistry Status: Acute Assessment and Plan: LFTs elevated felt related to above. Follow for resolution. (6) Rash: Code(s): R21 - Rash and other nonspecific skin eruption Status: Acute Assessment and Plan: Appears to have fungal buttock rash. Continue anti-fungal. (7) Coronary artery disease: Code(s): I25.10 - Atherosclerotic heart disease of [place] coronary artery without angina pectoris Status: Acute Assessment and Plan: C in July 2022 with high grade stenosis to the LAD with EF 50-55%. Medical therapy was recommended but consider PCI that would be high risk. Home medications include: Plavix, metoprolol and crestor. Holding these home meds for now. (8) Abdominal aortic aneurysm: Code(s): I71.40 - Abdominal aortic aneurysm, without rupture, unspecified Status: Acute Assessment and Plan: CT in May 2022 showing AAA 3.[address] A/P here showing AAA at 3.3cm and stable. Defer to PCP for continued monitoring. Plan Code status - full DVT prophylaxis - SCDs Subjective Date/time seen: 08/24/24 12:49 Interval history: 84yo male with CAD and colon cancer currently undergoing chemotherapy treatment who is here for fever, shaking and chills. Patient denies nausea and vomiting. Still with right flank pain. No CP or SOB. Exam Narrative: AF 97.7 101/66 55 15 99% ra Gen - NARD Chest -bibasilar inspiratory crackles CV - RRR. S1-S2. Abd - soft. Nondistended. Right flank pain and referred pain from mid abdomen. Ext - no pedal edema Psych - normal mood and affect. Patient is pleasant and cooperative. Skin - warm and dry. Normal cap refill. Buttock rash fading. Objective Data Vital Signs Vital Signs: Vital Signs - 24 hr 08/23/24 14:00 08/23/24 14:00 08/23/24 14:00 Temperature Pulse Rate 74 79 74 Respiratory Rate 16 Blood Pressure 138/71 138/71 Pulse Oximetry 98 Oxygen Delivery 08/23/24 15:45 08/23/24 16:00 08/23/24 16:00 Temperature Pulse Rate 80 70 69 Respiratory Rate Blood Pressure 86/59 L 101/63 Pulse Oximetry Oxygen Delivery 08/23/24 16:00 08/23/24 16:00 08/23/24 17:30 Temperature Pulse Rate 70 70 73 Respiratory Rate 17 16 Blood Pressure 106/63 105/72 Pulse Oximetry 100 98 Oxygen Delivery Room Air 08/23/24 18:00 08/23/24 18:00 08/23/24 18:00 Temperature Pulse Rate 73 72 72 Respiratory Rate 18 Blood Pressure 97/64 L 97/64 L Pulse Oximetry 98 Oxygen Delivery 08/23/24 18:30 08/23/24 20:00 08/23/24 20:00 Temperature 98.2 F Pulse Rate 72 74 Respiratory Rate 20 Blood Pressure 90/54 L 100/74 Pulse Oximetry 97 97 Oxygen Delivery Room Air 08/23/24 20:00 08/23/24 20:00 08/23/24 20:45 Temperature Pulse Rate 77 78 73 Respiratory Rate 19 Blood Pressure 100/74 115/62 Pulse Oximetry 99 Oxygen Delivery 08/23/24 20:45 08/23/24 21:00 08/23/24 21:00 Temperature Pulse Rate 73 75 73 Respiratory Rate 21 H Blood Pressure 115/62 98/73 L 98/73 L Pulse Oximetry 98 Oxygen Delivery 08/23/24 22:00 08/23/24 22:00 08/23/24 22:00 Temperature Pulse Rate 83 83 83 Respiratory Rate 26 H Blood Pressure 132/76 132/76 Pulse Oximetry 98 Oxygen Delivery 08/24/24 00:00 08/24/24 00:00 08/24/24 00:00 Temperature 98.4 F Pulse Rate 80 76 Respiratory Rate 19 Blood Pressure 89/56 L Pulse Oximetry 95 95 Oxygen Delivery Room Air 08/24/24 00:00 08/24/24 00:15 08/24/24 00:30 Temperature Pulse Rate 80 77 78 Respiratory Rate Blood Pressure 89/56 L 88/58 L 98/59 L Pulse Oximetry Oxygen Delivery 08/24/24 02:00 08/24/24 02:00 08/24/24 02:00 Temperature Pulse Rate 76 76 76 Respiratory Rate 19 Blood Pressure 109/61 109/61 Pulse Oximetry 95 Oxygen Delivery 08/24/24 04:00 08/24/24 04:00 08/24/24 04:00 Temperature 98.5 F Pulse Rate 70 70 Respiratory Rate 17 Blood Pressure 121/70 121/70 Pulse Oximetry 97 97 Oxygen Delivery Room Air 08/24/24 04:00 08/24/24 06:00 08/24/24 06:00 Temperature Pulse Rate 69 72 72 Respiratory Rate 16 Blood Pressure 128/80 128/80 Pulse Oximetry 97 Oxygen Delivery 08/24/24 06:00 08/24/24 08:00 08/24/24 08:00 Temperature 97.6 F Pulse Rate 72 78 73 Respiratory Rate 16 Blood Pressure 130/74 Pulse Oximetry 98 Oxygen Delivery 08/24/24 08:00 08/24/24 08:30 08/24/24 08:45 Temperature Pulse Rate 73 71 Respiratory Rate Blood Pressure 106/67 93/58 L Pulse Oximetry 99 Oxygen Delivery Room Air 08/24/24 09:15 08/24/24 09:30 08/24/24 09:40 Temperature Pulse Rate 62 69 Respiratory Rate Blood Pressure 85/59 L 102/61 Pulse Oximetry 99 Oxygen Delivery Room Air 08/24/24 09:45 08/24/24 10:00 08/24/24 10:00 Temperature Pulse Rate 76 62 65 Respiratory Rate 15 Blood Pressure 109/75 91/61 L Pulse Oximetry 96 Oxygen Delivery 08/24/24 10:00 08/24/24 10:04 08/24/24 11:00 Temperature 97.2 F L Pulse Rate 64 63 Respiratory Rate Blood Pressure 91/64 L 113/75 Pulse Oximetry Oxygen Delivery 08/24/24 11:30 08/24/24 11:45 08/24/24 12:00 Temperature Pulse Rate 63 63 61 Respiratory Rate Blood Pressure 112/75 105/65 105/67 Pulse Oximetry Oxygen Delivery 08/24/24 12:00 08/24/24 12:00 08/24/24 12:00 Temperature 97.7 F Pulse Rate 60 54 L Respiratory Rate 15 Blood Pressure 105/67 Pulse Oximetry 99 99 Oxygen Delivery Room Air 08/24/24 12:15 Temperature Pulse Rate 55 L Respiratory Rate Blood Pressure 101/66 Pulse Oximetry Oxygen Delivery Intake/Output Intake/Output: Intake & Output 08/21/24 08/22/24 08/23/24 08/24/24 23:59 23:59 23:59 23:59 Intake Total 2049 3607.1 2071.2 Output Total 700 400 Balance 2049 2907.1 1671.2 Meds/Results Medications: Active Medications Generic Name Dose Route Start Last Admin Trade Name Freq PRN Reason Stop Dose Admin Acetaminophen 650 mg 08/23/24 05:45 08/24/24 12:05 Acetaminophen 325 Mg Tablet PO 650 mg Q4H PRN Administration Mild Pain (1-3) or Fever Filgrastim-Sndz 300 mcg 08/24/24 09:00 08/24/24 09:05 Filgrastim-Sndz 300 Mcg/0.5 Ml Syringe SUB-Q Not Given DAILY CORINNE Norepinephrine Bitartrate 8 mg in 250 mls @ 0 mls/hr 08/23/24 07:45 08/24/24 12:15 Levophed 8 Mg/D5w 250 Ml IV CONT 0 mcg/min .Q0M CORINNE 0 mls/hr Titration Protocol Meropenem 1 gm in 100 mls @ 200 mls/hr 08/23/24 09:00 08/24/24 09:05 IVPB Infused Q12HR CORINNE Infusion Albumin Human 100 mls @ 60 mls/hr 08/24/24 12:00 08/24/24 12:01 Albutein IVPB 08/25/24 07:39 60 mls/hr Q6HR CORINNE Administration Miconazole Nitrate 1 applic 08/23/24 10:40 08/24/24 09:43 Miconazole Nitrate 2% Cream 30 Gm Tube TOPICAL 1 applic Q12HR CORINNE Administration Midodrine 5 mg 08/24/24 09:00 08/24/24 12:01 Midodrine Hcl 2.5 Mg Tablet PO 5 mg TID CORINNE Administration Ondansetron HCl 4 mg 08/23/24 05:45 Ondansetron Inj 4 Mg/2 Ml Vial IV PUSH Q4H PRN Nausea Sodium Chloride 10 ml 08/23/24 14:00 08/24/24 11:59 Central Line Flush IV PUSH 10 ml Q8HR CORINNE Administration Sodium Chloride 10 ml 08/23/24 11:20 Central Line Flush IV PUSH PRN PRN with TPN bag changes Sodium Chloride 20 ml 08/23/24 11:20 Central Line Flush IV PUSH PRN PRN after blood draws Tamsulosin HCl 0.4 mg 08/23/24 09:00 08/24/24 08:40 Tamsulosin Hcl 0.4 Mg Capsule PO 0.4 mg QAM CORINNE Administration Radiology Results: ITS Impressions Shoulder X-Ray 08/22/24 23:34 IMPRESSION: No acute osseous finding the left shoulder. Abdomen/Pelvis CT 08/23/24 05:20 Impression: 6.2 x 2.1 x 5.0 cm abscess along the inferior margin of the right hepatic lobe, possibly related to a dropped gallstone. Suspected extension into the inferior hepatic lobe with a 2.2 cm fluid attenuation area in the liver in this region, which is new from prior exam. 3.3 cm distal abdominal aortic aneurysm. Minimal pleural effusions with mild bibasilar pulmonary edema/atelectasis. 9 mm nonobstructing left renal stone. Chest X-Ray 08/23/24 11:22 IMPRESSION: 1. Right PICC line tip in the midsuperior vena cava. 2. Mild bibasilar opacities which could represent atelectasis, mild pulmonary edema or pneumonia. Labs Labs: Laboratory Results - last 24 hr 08/23/24 08/24/24 23:46 05:54 WBC 16.7 H RBC 2.77 L Hgb 9.5 L Hct 29.2 L MCV 105.4 H MCH 34.3 H MCHC 32.5 RDW 15.0 H Plt Count 90 L MPV 9.7 % Immature Plt Fraction 2.2 Sodium 138 Potassium 4.0 Chloride 114 H Carbon Dioxide 18 L Anion Gap 6 BUN 17 Creatinine 0.77 Estim Creat Clear Calc 59 Estimated GFR > 60 Glucose 129 H Calcium 7.4 L Magnesium 1.7 Iron 20 L TIBC 212 L % Saturation 9 L Ferritin 1330.00 H Total Bilirubin 1.3 AST 207 H ALT 234 H Alkaline Phosphatase 162 H Total Protein 5.2 L Albumin 2.3 L Vitamin B12 578.0 Folate 5.5
[2024-08-24 14:26] LABS: Hematocrit 29.4 % (42.0-52.0); Hemoglobin 9.6 g/dL (14.0-18.0); Immature Platelet Fraction Pct 2.7 % (0.9-11.2); Mean Corpuscular HGB Conc 32.7 g/dl (32-36); Mean Corpuscular Hemoglobin 34.7 pg (26-34); Mean Corpuscular Volume 106.1 fl (80-100); Mean Platelet Volume 10.1 fl (7.4-10.4); Platelet Count Result 84 k/mm3 (150-375); Red Blood Count 2.77 M/mm3 (4.6-6.20); White Blood Count 9.8 K/mm3 (4.5-10.0)
[2024-08-24] MEDS: MORPHINE SULFATE (*CRX) 2 MG/ML INJ IV PUSH (16:23)
[2024-08-25] VITALS (15 sets, daily range): BP systolic 105–130; BP diastolic 63–74; PULSE 56–80; RESP 15–20; TEMP 36.6–37.1; O2SAT 95–99
[2024-08-25] MEDS: ACETAMINOPHEN 325 MG TABLET 650 MG PO (00:13)
[2024-08-25] MEDS: ALBUMIN HUMAN 25% 25 GM/100 ML 100 ML IVPB ×2 (00:14→05:50)
[2024-08-25 05:44] LABS: Hematocrit 27.9 % (42.0-52.0); Hemoglobin 8.8 g/dL (14.0-18.0); Immature Platelet Fraction Pct 3.4 % (0.9-11.2); Mean Corpuscular HGB Conc 31.5 g/dl (32-36); Mean Corpuscular Hemoglobin 33.6 pg (26-34); Mean Corpuscular Volume 106.5 fl (80-100); Mean Platelet Volume 10.4 fl (7.4-10.4); Platelet Count Result 78 k/mm3 (150-375); Red Blood Count 2.62 M/mm3 (4.6-6.20); Red Cell Distribution Width 15.1 % (11.5-14.5); White Blood Count 9.6 K/mm3 (4.5-10.0)
[2024-08-25] MEDS: CENTRAL LINE FLUSH 10 ML IV PUSH ×3 (05:50→20:47)
[2024-08-25 06:14] LABS: Alanine Aminotransferase 132 U/L (6-50); Albumin Level 2.9 g/dL (3.5-5.1); Alkaline Phosphatase 130 U/L (38-126); Anion Gap 6 mmol/L (4-12); Aspartate Amino Transferase 78 U/L (17-59); Bilirubin,Total 1.2 mg/dL (0.2-1.3); Blood Urea Nitrogen 17 mg/dL (9-20); Calcium 8.4 mg/dL (8.4-10.2); Carbon Dioxide 20 mmol/L (22-30); Chloride 113 mmol/L (98-107); Estimated CRCL calculation 58 ml/min; Estimated Glomerular Filt Rate > 60; Glucose 90 mg/dL (65-110); Magnesium 2.3 mg/dL (1.6-2.3); Potassium 3.8 mmol/L (3.4-5.0); Sodium 139 mmol/L (137-145); Total Protein 5.6 g/dL (6.3-8.2)
[2024-08-25] MEDS: ENOXAPARIN 40 MG/0.4 ML SYRINGE SUB-Q (08:06)
[2024-08-25] MEDS: MIDODRINE HCL 2.5 MG TABLET 5 MG PO ×3 (08:07→16:31)
[2024-08-25] MEDS: TAMSULOSIN HCL 0.4 MG CAPSULE PO (08:07)
--- NOTE | 2024-08-25 08:36 | WPDINTPN ---
Progress Note: A&P Assessment and Plan (1) Septic shock: Code(s): A41.9 - Sepsis, unspecified organism; R65.21 - Severe sepsis with septic shock Status: Acute Assessment and Plan: Septic shock secondary to sepsis from right upper quadrant intra abdominal abscess in the setting of neutropenia from chemotherapy. Patient has a dropped gallstone at that location and also had dental work done few weeks ago which could have led to seeding of the stone. Case discussed with Radiology and General surgery 08/24 Successful ultrasound-guided or hepatic abscess drainage catheter placement. Further management of drain and stone as per General surgery Will resume aspirin and Plavix Blood cultures a growing E coli Currently on meropenem to cover for anaerobes Off vancomycin Hold further IV fluids Off vasopressor Can midodrine (2) Coronary artery disease: Code(s): I25.10 - Atherosclerotic heart disease of [place] coronary artery without angina pectoris Status: Acute Assessment and Plan: History of coronary disease which was being medically managed. Beta-faraz is on hold due to sepsis shock shock Resume Plavix and aspirin (3) Thrombocytopenia: Code(s): D69.6 - Thrombocytopenia, unspecified Status: Acute Assessment and Plan: Secondary to chemotherapy and sepsis. Monitor (4) Intra-abdominal abscess: Code(s): K65.1 - Peritoneal abscess Status: Acute Assessment and Plan: See above (5) Right sided abdominal pain: Code(s): R10.9 - Unspecified abdominal pain Status: Acute Assessment and Plan: Secondary to abscess. See above (6) Kidney stones: Code(s): N20.0 - Calculus of kidney Status: Acute Assessment and Plan: Nonobstructing kidney stone. Monitor (7) Urethral stricture: Code(s): N35.919 - Unspecified urethral stricture, male, unspecified site Status: Acute Assessment and Plan: Patient has history of urethral stricture status post dilation Avoid Lima insertion as long as patient is able to urinate (8) Anemia: Qualifiers: Anemia type: iron deficiency Iron deficiency anemia type: chronic blood loss Qualified Code(s): D50.0 - Iron deficiency anemia secondary to blood loss (chronic) Code(s): D64.9 - Anemia, unspecified Status: Acute Assessment and Plan: Patient has chronic anemia. Hemoglobin appears close to baseline. Monitor (9) Neutropenia with fever: Code(s): D70.9 - Neutropenia, unspecified; R50.81 - Fever presenting with conditions classified elsewhere Status: Acute Assessment and Plan: Neutropenia precautions Oncology consult Patient was given zarxio WBC improving (10) Colon cancer: Code(s): C18.9 - Malignant neoplasm of colon, unspecified Status: Acute Assessment and Plan: History of colon cancer status post right hemicolectomy and is currently on Fruquintinib p.o. which will be held. Will try to obtain records from [facility] (11) Pedal edema: Code(s): R60.0 - Localized edema Status: Resolved Assessment and Plan: Mild bilateral pedal edema. Cautious IV fluids per sepsis Plan DVT prophylaxis -SCD. Start Lovenox Nutrition -diet ordered Code Status -patient's son stated that patient is Full Code but would not want to be on mechanical ventilation for prolonged period of time. Discuss case with Internal Medicine and General surgery Consult PT OT Incentive spirometry Up in chair Transfer out of ICU today Subjective Date/time seen: 08/25/24 Overnight events reviewed. Afebrile Off vasopressors since yesterday He states he feels significantly better today and denies any new complaints. He states his side abdominal pain has improved and is only 1/10. He has been tolerating p.o. diet and denies any nausea vomiting chest pain shortness a breath or cough. all other systems were reviewed and were negative He is on room air Good urine output Review of Systems Review of Systems: All systems reviewed & are unremarkable except as noted in HPI and below (HPI) Exam Narrative: General: Pt is alert awake and in NAD Lungs/Chest: Trachea central Clear BS B/L, No crackles or wheezing. Cardiac: RRR. Normal S1 S2. No murmurs Circulation: Pedal pulses are intact and symmetrical. Abdomen: Normal bowel sounds.. Soft. Mild tenderness palpation right upper quadrant Scar from past surgical incision Extremities: Mild bilateral pitting edema. Warm : Lima in place Neurologic: Follows commands. Moves all 4 extremities PERRL AO x3 Skin: No Rash Objective Data Vital Signs Vital Signs: Vital Signs - 24 hr 08/24/24 08:45 08/24/24 09:15 08/24/24 09:30 Temperature Pulse Rate 71 62 69 Respiratory Rate Blood Pressure 93/58 L 85/59 L 102/61 Pulse Oximetry Oxygen Delivery Fraction of Inspired Oxygen 08/24/24 09:40 08/24/24 09:45 08/24/24 10:00 Temperature Pulse Rate 76 62 Respiratory Rate Blood Pressure 109/75 Pulse Oximetry 99 Oxygen Delivery Room Air Fraction of Inspired Oxygen 08/24/24 10:00 08/24/24 10:00 08/24/24 10:04 Temperature 36.2 C L Pulse Rate 65 64 Respiratory Rate 15 Blood Pressure 91/61 L 91/64 L Pulse Oximetry 96 Oxygen Delivery Fraction of Inspired Oxygen 08/24/24 11:00 08/24/24 11:30 08/24/24 11:45 Temperature Pulse Rate 63 63 63 Respiratory Rate Blood Pressure 113/75 112/75 105/65 Pulse Oximetry Oxygen Delivery Fraction of Inspired Oxygen 08/24/24 12:00 08/24/24 12:00 08/24/24 12:00 Temperature Pulse Rate 61 60 Respiratory Rate Blood Pressure 105/67 Pulse Oximetry 99 Oxygen Delivery Room Air Fraction of Inspired Oxygen 08/24/24 12:00 08/24/24 12:15 08/24/24 13:00 Temperature 36.5 C Pulse Rate 54 L 55 L 57 L Respiratory Rate 15 Blood Pressure 105/67 101/66 101/68 Pulse Oximetry 99 Oxygen Delivery Fraction of Inspired Oxygen 08/24/24 14:00 08/24/24 14:00 08/24/24 14:00 Temperature 36.4 C Pulse Rate 57 L 58 L 57 L Respiratory Rate 18 Blood Pressure 106/77 115/69 Pulse Oximetry 100 Oxygen Delivery Fraction of Inspired Oxygen 08/24/24 15:00 08/24/24 16:00 08/24/24 16:00 Temperature Pulse Rate 61 61 Respiratory Rate Blood Pressure 113/75 118/67 Pulse Oximetry 99 Oxygen Delivery Room Air Fraction of Inspired Oxygen 08/24/24 16:00 08/24/24 16:00 08/24/24 16:25 Temperature 36.5 C Pulse Rate 59 L 59 L 61 Respiratory Rate 15 Blood Pressure 118/67 132/78 Pulse Oximetry 100 Oxygen Delivery Fraction of Inspired Oxygen 08/24/24 17:00 08/24/24 18:00 08/24/24 18:00 Temperature Pulse Rate 62 64 64 Respiratory Rate Blood Pressure 122/79 127/76 Pulse Oximetry Oxygen Delivery Fraction of Inspired Oxygen 08/24/24 18:00 08/24/24 20:00 08/24/24 20:00 Temperature Pulse Rate 67 65 Respiratory Rate 16 Blood Pressure 127/76 114/73 Pulse Oximetry 98 96 Oxygen Delivery Room Air Fraction of Inspired Oxygen 08/24/24 20:00 08/24/24 20:00 08/24/24 21:00 Temperature 36.7 C Pulse Rate 65 62 76 Respiratory Rate 16 21 H Blood Pressure 114/73 Pulse Oximetry 96 97 Oxygen Delivery Room Air Fraction of Inspired Oxygen 21 08/24/24 22:00 08/24/24 22:00 08/24/24 22:00 Temperature Pulse Rate 71 71 71 Respiratory Rate 18 Blood Pressure 124/65 124/65 Pulse Oximetry 96 Oxygen Delivery Fraction of Inspired Oxygen 08/25/24 00:00 08/25/24 00:00 08/25/24 00:00 Temperature 36.9 C Pulse Rate 70 70 Respiratory Rate 17 Blood Pressure 119/67 119/67 Pulse Oximetry 98 97 Oxygen Delivery Room Air Fraction of Inspired Oxygen 08/25/24 00:00 08/25/24 02:00 08/25/24 02:00 Temperature Pulse Rate 70 69 65 Respiratory Rate 17 Blood Pressure 119/69 Pulse Oximetry 95 Oxygen Delivery Fraction of Inspired Oxygen 08/25/24 02:00 08/25/24 04:00 08/25/24 04:00 Temperature 36.9 C Pulse Rate 69 62 Respiratory Rate 17 Blood Pressure 119/69 120/74 Pulse Oximetry 96 96 Oxygen Delivery Room Air Fraction of Inspired Oxygen 08/25/24 04:00 08/25/24 04:00 08/25/24 06:00 Temperature Pulse Rate 63 64 62 Respiratory Rate 15 Blood Pressure 120/74 123/69 Pulse Oximetry 96 Oxygen Delivery Fraction of Inspired Oxygen 08/25/24 06:00 08/25/24 07:37 Temperature 36.6 C Pulse Rate 62 59 L Respiratory Rate 19 Blood Pressure 117/72 Pulse Oximetry 97 Oxygen Delivery Fraction of Inspired Oxygen Intake/Output Intake/Output: Intake & Output 08/22/24 08/23/24 08/24/24 08/25/24 23:59 23:59 23:59 23:59 Intake Total 2049 3607.1 3021.2 100 Output Total 700 1018 1070 Balance 2049 2907.1 2003.2 -970 Meds/Results Medications: Active Medications Generic Name Dose Route Start Last Admin Trade Name Freq PRN Reason Stop Dose Admin Acetaminophen 650 mg 08/23/24 05:45 08/25/24 00:13 Acetaminophen 325 Mg Tablet PO 650 mg Q4H PRN Administration Mild Pain (1-3) or Fever Enoxaparin Sodium 40 mg 08/25/24 09:00 08/25/24 08:06 Enoxaparin 40 Mg/0.4 Ml Syringe SUB-Q 40 mg DAILY CORINNE Administration Meropenem 1 gm in 100 mls @ 200 mls/hr 08/25/24 08:00 IVPB Q8H CORINNE Miconazole Nitrate 1 applic 08/23/24 10:40 08/24/24 20:36 Miconazole Nitrate 2% Cream 30 Gm Tube TOPICAL 1 applic Q12HR CORINNE Administration Midodrine 5 mg 08/24/24 09:00 08/25/24 08:07 Midodrine Hcl 2.5 Mg Tablet PO 5 mg TID CORINNE Administration Morphine Sulfate 2 mg 08/24/24 16:12 08/24/24 16:23 Morphine Sulfate (*Crx) 2 Mg/Ml Inj IV PUSH 2 mg Q2H PRN Administration Pain Rated 7-10 Ondansetron HCl 4 mg 08/23/24 05:45 Ondansetron Inj 4 Mg/2 Ml Vial IV PUSH Q4H PRN Nausea Sodium Chloride 10 ml 08/23/24 14:00 08/25/24 05:50 Central Line Flush IV PUSH 10 ml Q8HR CORINNE Administration Sodium Chloride 10 ml 08/23/24 11:20 Central Line Flush IV PUSH PRN PRN with TPN bag changes Sodium Chloride 20 ml 08/23/24 11:20 Central Line Flush IV PUSH PRN PRN after blood draws Tamsulosin HCl 0.4 mg 08/23/24 09:00 08/25/24 08:07 Tamsulosin Hcl 0.4 Mg Capsule PO 0.4 mg QAM CORINNE Administration Radiology Results: ITS Impressions Shoulder X-Ray 08/22/24 23:34 IMPRESSION: No acute osseous finding the left shoulder. Abdomen/Pelvis CT 08/23/24 05:20 Impression: 6.2 x 2.1 x 5.0 cm abscess along the inferior margin of the right hepatic lobe, possibly related to a dropped gallstone. Suspected extension into the inferior hepatic lobe with a 2.2 cm fluid attenuation area in the liver in this region, which is new from prior exam. 3.3 cm distal abdominal aortic aneurysm. Minimal pleural effusions with mild bibasilar pulmonary edema/atelectasis. 9 mm nonobstructing left renal stone. Chest X-Ray 08/23/24 11:22 IMPRESSION: 1. Right PICC line tip in the midsuperior vena cava. 2. Mild bibasilar opacities which could represent atelectasis, mild pulmonary edema or pneumonia. Abdomen Ultrasound 08/24/24 12:37 IMPRESSION: 1. 6.2 x 2.5 cm perihepatic abscess surrounding a likely dropped gallstone. 2. Small serpiginous fluid collections measuring up to 7 mm diameter within a 3.7 x 2.7 cm echogenic region within the immediately underlying liver. This consistent with a region of phlegmonous change progressing towards intrahepatic abscess. Abscess Drainage Ultrasound 08/24/24 16:50 IMPRESSION: 1. Successful ultrasound-guided or hepatic abscess drainage catheter placement. 2. 18 mL of opaque ruiz purulent appearing fluid was sent sent for aerobic, anaerobic, and fungal cultures. 3. The catheter will be managed by general surgery. Labs Labs: Laboratory Results - last 24 hr 08/24/24 08/25/24 14:17 05:32 WBC 9.8 9.6 RBC 2.77 L 2.62 L Hgb 9.6 L 8.8 L Hct 29.4 L 27.9 L MCV 106.1 H 106.5 H MCH 34.7 H 33.6 MCHC 32.7 31.5 L RDW 15.0 H 15.1 H Plt Count 84 L 78 L MPV 10.1 10.4 % Immature Plt Fraction 2.7 3.4 Sodium 139 Potassium 3.8 Chloride 113 H Carbon Dioxide 20 L Anion Gap 6 BUN 17 Creatinine 0.78 Estim Creat Clear Calc 58 Estimated GFR > 60 Glucose 90 Calcium 8.4 Magnesium 2.3 Total Bilirubin 1.2 AST 78 H ALT 132 H Alkaline Phosphatase 130 H Total Protein 5.6 L Albumin 2.9 L
[2024-08-25] MEDS: MEROPENEM 1 GM/NS 100 ML 1 GM/100 ML BAG IVPB (09:11)
--- NOTE | 2024-08-25 10:03 | P.PNGS_ITS ---
Progress Note: A&P Assessment and Plan (1) Intra-abdominal abscess: Code(s): K65.1 - Peritoneal abscess Status: Acute Assessment and Plan: * S/p percutaneous drainage in IR. Cultures pending. WBC count normal. * Continue IV antibiotics and monitor percutaneous drain (2) Septic shock: Code(s): A41.9 - Sepsis, unspecified organism; R65.21 - Severe sepsis with septic shock Status: Acute Assessment and Plan: * Source is likely related to the intraabdominal abscess. S/p percutaneous drainage. Abscess cx pending (aerobic/anaerobic/fungal culture sent). Blood cultures / growing E coli. * Patient weaned off vasopressors. Continue IV antibiotics. Plan to transfer out of ICU today. (3) History of colon cancer: Code(s): Z85.038 - Personal history of other malignant neoplasm of large intestine Status: Acute (4) Hx laparoscopic cholecystectomy: Code(s): Z90.49 - Acquired absence of other specified parts of digestive tract Status: Acute (5) Antiplatelet or antithrombotic long-term use: Code(s): Z79.02 - senior care (current) use of antithrombotics/antiplatelets Status: Acute Assessment and Plan: * Plavix resumed following procedure (6) Coronary artery disease: Code(s): I25.10 - Atherosclerotic heart disease of [place] coronary artery without angina pectoris Status: Acute (7) Thrombocytopenia: Code(s): D69.6 - Thrombocytopenia, unspecified Status: Acute Assessment and Plan: * Platelets 78,000, hem/onc following, presented with pancytopenia on chemotherapy treatment for colon cancer Plan I have discussed the patient's case and plan of care with Dr. Graham. Subjective Subjective Date/Time Seen: 08/25/24 10:03 Patient reports: no new complaints and afebrile Interval history: No acute changes overnight. Percutaneous drain placed yesterday afternoon in IR. 20 cc of drainage out since placement yesterday. WBC count 9600. Cultures pending. Exam Const: General: comfortable and no acute distress GI: Inspection: non-distended GI Palp: Yes Soft to palpation, Yes Tenderness to palpation present (GI) (water tender in the right upper quadrant), No Guarding due to palpation present (GI) and No Rebound tenderness present Auscultation: normal bowel sounds Other: Right lateral percutaneous drain with scant serosanguineous drainage, dressing dry and intact Objective Data Vital Signs Vital Signs: Vital Signs - 24 hr 08/24/24 10:04 08/24/24 11:00 08/24/24 11:30 Temperature 97.2 F L Pulse Rate 63 63 Respiratory Rate Blood Pressure 113/75 112/75 Pulse Oximetry Oxygen Delivery Fraction of Inspired Oxygen 08/24/24 11:45 08/24/24 12:00 08/24/24 12:00 Temperature Pulse Rate 63 61 Respiratory Rate Blood Pressure 105/65 105/67 Pulse Oximetry 99 Oxygen Delivery Room Air Fraction of Inspired Oxygen 08/24/24 12:00 08/24/24 12:00 08/24/24 12:15 Temperature 97.7 F Pulse Rate 60 54 L 55 L Respiratory Rate 15 Blood Pressure 105/67 101/66 Pulse Oximetry 99 Oxygen Delivery Fraction of Inspired Oxygen 08/24/24 13:00 08/24/24 14:00 08/24/24 14:00 Temperature Pulse Rate 57 L 57 L 58 L Respiratory Rate Blood Pressure 101/68 106/77 Pulse Oximetry Oxygen Delivery Fraction of Inspired Oxygen 08/24/24 14:00 08/24/24 15:00 08/24/24 16:00 Temperature 97.6 F Pulse Rate 57 L 61 Respiratory Rate 18 Blood Pressure 115/69 113/75 Pulse Oximetry 100 99 Oxygen Delivery Room Air Fraction of Inspired Oxygen 08/24/24 16:00 08/24/24 16:00 08/24/24 16:00 Temperature 97.7 F Pulse Rate 61 59 L 59 L Respiratory Rate 15 Blood Pressure 118/67 118/67 Pulse Oximetry 100 Oxygen Delivery Fraction of Inspired Oxygen 08/24/24 16:25 08/24/24 17:00 08/24/24 18:00 Temperature Pulse Rate 61 62 64 Respiratory Rate Blood Pressure 132/78 122/79 127/76 Pulse Oximetry Oxygen Delivery Fraction of Inspired Oxygen 08/24/24 18:00 08/24/24 18:00 08/24/24 20:00 Temperature Pulse Rate 64 67 65 Respiratory Rate 16 Blood Pressure 127/76 114/73 Pulse Oximetry 98 Oxygen Delivery Fraction of Inspired Oxygen 08/24/24 20:00 08/24/24 20:00 08/24/24 20:00 Temperature 98.0 F Pulse Rate 65 62 Respiratory Rate 16 Blood Pressure 114/73 Pulse Oximetry 96 96 Oxygen Delivery Room Air Fraction of Inspired Oxygen 08/24/24 21:00 08/24/24 22:00 08/24/24 22:00 Temperature Pulse Rate 76 71 71 Respiratory Rate 21 H 18 Blood Pressure 124/65 124/65 Pulse Oximetry 97 96 Oxygen Delivery Room Air Fraction of Inspired Oxygen 21 08/24/24 22:00 08/25/24 00:00 08/25/24 00:00 Temperature 98.4 F Pulse Rate 71 70 70 Respiratory Rate 17 Blood Pressure 119/67 119/67 Pulse Oximetry 98 Oxygen Delivery Fraction of Inspired Oxygen 08/25/24 00:00 08/25/24 00:00 08/25/24 02:00 Temperature Pulse Rate 70 69 Respiratory Rate Blood Pressure Pulse Oximetry 97 Oxygen Delivery Room Air Fraction of Inspired Oxygen 08/25/24 02:00 08/25/24 02:00 08/25/24 04:00 Temperature Pulse Rate 65 69 Respiratory Rate 17 Blood Pressure 119/69 119/69 Pulse Oximetry 95 96 Oxygen Delivery Room Air Fraction of Inspired Oxygen 08/25/24 04:00 08/25/24 04:00 08/25/24 04:00 Temperature 98.5 F Pulse Rate 62 63 64 Respiratory Rate 17 Blood Pressure 120/74 120/74 Pulse Oximetry 96 Oxygen Delivery Fraction of Inspired Oxygen 08/25/24 06:00 08/25/24 06:00 08/25/24 07:37 Temperature 97.8 F Pulse Rate 62 62 59 L Respiratory Rate 15 19 Blood Pressure 123/69 117/72 Pulse Oximetry 96 97 Oxygen Delivery Fraction of Inspired Oxygen Intake/Output Intake/Output: Intake & Output 08/22/24 08/23/24 08/24/24 08/25/24 23:59 23:59 23:59 23:59 Intake Total 2049 3607.1 3021.2 440 Output Total 700 1018 1770 Balance 2049 2907.1 2003.2 -5770 Meds/Results Medications: Active Medications Generic Name Dose Route Start Last Admin Trade Name Freq PRN Reason Stop Dose Admin Acetaminophen 650 mg 08/23/24 05:45 08/25/24 00:13 Acetaminophen 325 Mg Tablet PO 650 mg Q4H PRN Administration Mild Pain (1-3) or Fever Aspirin 81 mg 08/25/24 09:00 Aspirin 81 Mg Enteric Tablet PO [facility] Clopidogrel Bisulfate 75 mg 08/25/24 09:00 Clopidogrel Bisulfate 75 Mg Tablet PO QAM [facility] Enoxaparin Sodium 40 mg 08/25/24 09:00 08/25/24 08:06 Enoxaparin 40 Mg/0.4 Ml Syringe SUB-Q 40 mg DAILY [facility]IN[facility] Administration Meropenem 1 gm in 100 mls @ 200 mls/hr 08/25/24 08:00 08/25/24 09:58 IVPB Infused Q8H [facility] Infusion Miconazole Nitrate 1 applic 08/23/24 10:40 08/24/24 20:36 Miconazole Nitrate 2% Cream 30 Gm Tube TOPICAL 1 applic Q12HR [facility] Administration Midodrine 5 mg 08/24/24 09:00 08/25/24 08:07 Midodrine Hcl 2.5 Mg Tablet PO 5 mg TID [facility] Administration Morphine Sulfate 2 mg 08/24/24 16:12 08/24/24 16:23 Morphine Sulfate (*Crx) 2 Mg/Ml Inj IV PUSH 2 mg Q2H PRN Administration Pain Rated 7-10 Ondansetron HCl 4 mg 08/23/24 05:45 Ondansetron Inj 4 Mg/2 Ml Vial IV PUSH Q4H PRN Nausea Sodium Chloride 10 ml 08/23/24 14:00 08/25/24 05:50 Central Line Flush IV PUSH 10 ml Q8HR [facility] Administration Sodium Chloride 10 ml 08/23/24 11:20 Central Line Flush IV PUSH PRN PRN with TPN bag changes Sodium Chloride 20 ml 08/23/24 11:20 Central Line Flush IV PUSH PRN PRN after blood draws Tamsulosin HCl 0.4 mg 08/23/24 09:00 08/25/24 08:07 Tamsulosin Hcl 0.4 Mg Capsule PO 0.4 mg QAM [facility] Administration Radiology Results: ITS Impressions Shoulder X-Ray 08/22/24 23:34 IMPRESSION: No acute osseous finding the left shoulder. Abdomen/Pelvis CT 08/23/24 05:20 Impression: 6.2 x 2.1 x 5.0 cm abscess along the inferior margin of the right hepatic lobe, possibly related to a dropped gallstone. Suspected extension into the inferior hepatic lobe with a 2.2 cm fluid attenuation area in the liver in this region, which is new from prior exam. 3.3 cm distal abdominal aortic aneurysm. Minimal pleural effusions with mild bibasilar pulmonary edema/atelectasis. 9 mm nonobstructing left renal stone. Chest X-Ray 08/23/24 11:22 IMPRESSION: 1. Right PICC line tip in the midsuperior vena cava. 2. Mild bibasilar opacities which could represent atelectasis, mild pulmonary edema or pneumonia. Abdomen Ultrasound 08/24/24 12:37 IMPRESSION: 1. 6.2 x 2.5 cm perihepatic abscess surrounding a likely dropped gallstone. 2. Small serpiginous fluid collections measuring up to 7 mm diameter within a 3.7 x 2.7 cm echogenic region within the immediately underlying liver. This consistent with a region of phlegmonous change progressing towards intrahepatic abscess. Abscess Drainage Ultrasound 08/24/24 16:50 IMPRESSION: 1. Successful ultrasound-guided or hepatic abscess drainage catheter placement. 2. 18 mL of opaque ruiz purulent appearing fluid was sent sent for aerobic, anaerobic, and fungal cultures. 3. The catheter will be managed by general surgery. Labs Labs: Laboratory Results - last 24 hr 08/24/24 08/25/24 14:17 05:32 WBC 9.8 9.6 RBC 2.77 L 2.62 L Hgb 9.6 L 8.8 L Hct 29.4 L 27.9 L MCV 106.1 H 106.5 H MCH 34.7 H 33.6 MCHC 32.7 31.5 L RDW 15.0 H 15.1 H Plt Count 84 L 78 L MPV 10.1 10.4 % Immature Plt Fraction 2.7 3.4 Sodium 139 Potassium 3.8 Chloride 113 H Carbon Dioxide 20 L Anion Gap 6 BUN 17 Creatinine 0.78 Estim Creat Clear Calc 58 Estimated GFR > 60 Glucose 90 Calcium 8.4 Magnesium 2.3 Total Bilirubin 1.2 AST 78 H ALT 132 H Alkaline Phosphatase 130 H Total Protein 5.6 L Albumin 2.9 L
[2024-08-25] MEDS: ASPIRIN 81 MG ENTERIC TABLET PO (10:27)
[2024-08-25] MEDS: CLOPIDOGREL BISULFATE 75 MG TABLET PO (10:27)
[2024-08-25] MEDS: MICONAZOLE NITRATE 2% CREAM 30 GM TUBE 1 APPLIC TOPICAL ×2 (10:27→20:47)
--- NOTE | 2024-08-25 10:47 | PCFNICU ---
ICU Rounding Note: Pt current nutrition is Regular. Last recorded weight is 73.9 kg. Bowel Motility: Last reported BM 08/24 Labs Reviewed: Alb 2.9, Hct 27.9, Hgb 8.8 Meds Noted:Flagyl, Rocephin Skin: WNL Additional Notes: Patient diet order has upgraded to regular diet. Oral Intake improving. Agree with diet orders. No further nutritional interventions needed at this time. Following daily in ICU rounds.
--- NOTE | 2024-08-25 12:45 | PC.NURSE ---
This patient, Sterling Bryant, was transferred to [facility] [place] on 08/25/24 at 1240. Personal belongings sent with patient. Report given to Lynda Wolf RN. Appropriate documentation sent with patient.
--- NOTE | 2024-08-25 12:46 | PC.NURSE ---
This patient, Sterling Bryant, was received from [ICU-7] on 08/25/24 at 1246. Patient/family oriented to unit policies and routines. Report received from LD Gruber @ [phone]
[2024-08-25] MEDS: metroNIDAZOLE 500 MG TABLET PO ×2 (16:31→20:47)
[2024-08-25] MEDS: cefTRIAXone 2 GM/NS 100 ML 2 GM/100 ML BAG IVPB (16:31)
[2024-08-26] VITALS (17 sets, daily range): BP systolic 111–131; BP diastolic 66–72; PULSE 54–66; RESP 15–20; TEMP 36.6–37; O2SAT 96–98
[2024-08-26] MEDS: metroNIDAZOLE 500 MG TABLET PO ×3 (05:44→21:59)
[2024-08-26] MEDS: CENTRAL LINE FLUSH 10 ML IV PUSH ×3 (05:45→21:59)
[2024-08-26 06:23] LABS: Hemoglobin 9.2 g/dL (14.0-18.0); Mean Corpuscular HGB Conc 32.9 g/dl (32-36); Mean Corpuscular Hemoglobin 34.6 pg (26-34); Mean Corpuscular Volume 105.3 fl (80-100); Mean Platelet Volume 10.9 fl (7.4-10.4); Platelet Count Result 81 k/mm3 (150-375); Red Blood Count 2.66 M/mm3 (4.6-6.20); Red Cell Distribution Width 14.9 % (11.5-14.5); White Blood Count 12.4 K/mm3 (4.5-10.0)
[2024-08-26 06:34] LABS: Alanine Aminotransferase 92 U/L (6-50); Albumin Level 2.9 g/dL (3.5-5.1); Alkaline Phosphatase 142 U/L (38-126); Anion Gap 7 mmol/L (4-12); Aspartate Amino Transferase 42 U/L (17-59); Bilirubin,Total 0.9 mg/dL (0.2-1.3); Blood Urea Nitrogen 15 mg/dL (9-20); Calcium 8.3 mg/dL (8.4-10.2); Carbon Dioxide 20 mmol/L (22-30); Chloride 111 mmol/L (98-107); Estimated CRCL calculation 61 ml/min; Estimated Glomerular Filt Rate > 60; Glucose 88 mg/dL (65-110); Potassium 3.5 mmol/L (3.4-5.0); Sodium 138 mmol/L (137-145); Total Protein 5.8 g/dL (6.3-8.2)
[2024-08-26] MEDS: CLOPIDOGREL BISULFATE 75 MG TABLET PO (09:29)
[2024-08-26] MEDS: MIDODRINE HCL 2.5 MG TABLET 5 MG PO ×3 (09:29→17:13)
[2024-08-26] MEDS: TAMSULOSIN HCL 0.4 MG CAPSULE PO (09:29)
[2024-08-26] MEDS: cefTRIAXone 2 GM/NS 100 ML 2 GM/100 ML BAG IVPB (09:30)
--- NOTE | 2024-08-26 12:47 | PM.PNGS ---
Progress Note: A&P Assessment and Plan (1) Intra-abdominal abscess: Code(s): K65.1 - Peritoneal abscess Status: Acute Assessment and Plan: S/p percutaneous drainage in IR. Blood and urine cultures growing E. coli. Continue IV antibiotics and monitor percutaneous drain OK to discharge from surgical standpoint. Will have patient follow up in office next week to assess drain and discuss surgery to remove retained gallstone. (2) Septic shock: Code(s): A41.9 - Sepsis, unspecified organism; R65.21 - Severe sepsis with septic shock Status: Acute (3) History of colon cancer: Code(s): Z85.038 - Personal history of other malignant neoplasm of large intestine Status: Acute (4) Hx laparoscopic cholecystectomy: Code(s): Z90.49 - Acquired absence of other specified parts of digestive tract Status: Acute (5) Antiplatelet or antithrombotic long-term use: Code(s): Z79.02 - ad terminal makeup operator (current) use of antithrombotics/antiplatelets Status: Acute Assessment and Plan: Plavix resumed following procedure (6) Coronary artery disease: Code(s): I25.10 - Atherosclerotic heart disease of [place] coronary artery without angina pectoris Status: Acute (7) Thrombocytopenia: Code(s): D69.6 - Thrombocytopenia, unspecified Status: Acute Assessment and Plan: Platelets 81,000, hem/onc following, presented with pancytopenia on chemotherapy treatment for colon cancer Subjective Subjective Date/Time Seen: 08/26/24 12:47 Interval history: Continues to improve. Minimal pain at drain site. No fevers. Tolerating diet. Exam GI: Inspection: non-distended GI Palp: Yes Soft to palpation, No Tenderness to palpation present (GI), No Guarding due to palpation present (GI) and No Rebound tenderness present Other: Pigtail drain with minimal bloody output. Objective Data Vital Signs Vital Signs: Vital Signs - 24 hr 08/25/24 12:57 08/25/24 14:00 08/25/24 16:00 Temperature 97.8 F 98.8 F Pulse Rate 61 56 L 58 L Respiratory Rate 18 16 Blood Pressure 127/68 130/69 Pulse Oximetry 99 99 Oxygen Delivery Fraction of Inspired Oxygen 08/25/24 16:00 08/25/24 16:00 08/25/24 18:00 Temperature Pulse Rate 67 66 Respiratory Rate Blood Pressure Pulse Oximetry Oxygen Delivery Room Air Fraction of Inspired Oxygen 08/25/24 20:00 08/25/24 20:00 08/25/24 20:00 Temperature 98.7 F Pulse Rate 59 L 59 L Respiratory Rate 16 Blood Pressure 105/63 Pulse Oximetry 96 Oxygen Delivery Room Air Fraction of Inspired Oxygen 08/25/24 20:38 08/25/24 22:00 08/25/24 23:34 Temperature Pulse Rate 80 60 Respiratory Rate 20 Blood Pressure Pulse Oximetry 96 Oxygen Delivery Room Air Room Air Fraction of Inspired Oxygen 21 08/25/24 23:48 08/26/24 00:00 08/26/24 02:00 Temperature 98.6 F Pulse Rate 59 L 56 L 63 Respiratory Rate 15 Blood Pressure 123/68 Pulse Oximetry 98 Oxygen Delivery Fraction of Inspired Oxygen 08/26/24 03:37 08/26/24 04:00 08/26/24 04:00 Temperature 98.6 F Pulse Rate 63 59 L Respiratory Rate 16 Blood Pressure 124/67 Pulse Oximetry 97 Oxygen Delivery Room Air Fraction of Inspired Oxygen 08/26/24 06:00 08/26/24 07:57 08/26/24 08:00 Temperature 98.3 F Pulse Rate 56 L 54 L 58 L Respiratory Rate 16 Blood Pressure 124/68 Pulse Oximetry 97 Oxygen Delivery Fraction of Inspired Oxygen 08/26/24 10:00 08/26/24 11:45 08/26/24 12:00 Temperature 98.5 F Pulse Rate 66 55 L 59 L Respiratory Rate 16 Blood Pressure 111/66 Pulse Oximetry 98 Oxygen Delivery Fraction of Inspired Oxygen Intake/Output Intake/Output: Intake & Output 08/23/24 08/24/24 08/25/24 08/26/24 23:59 23:59 23:59 23:59 Intake Total 3607.1 3021.2 1330 1500 Output Total 700 1018 1770 400 Balance 2907.1 2003.2 -440 1100 Meds/Results Medications: Active Medications Generic Name Dose Route Start Last Admin Trade Name Freq PRN Reason Stop Dose Admin Acetaminophen 650 mg 08/23/24 05:45 08/25/24 00:13 Acetaminophen 325 Mg Tablet PO 650 mg Q4H PRN Administration Mild Pain (1-3) or Fever Aspirin 81 mg 08/25/24 09:00 08/26/24 09:30 Aspirin 81 Mg Enteric Tablet PO Not Given [facility] Clopidogrel Bisulfate 75 mg 08/25/24 09:00 08/26/24 09:29 Clopidogrel Bisulfate 75 Mg Tablet PO 75 mg QAM [facility] Administration Enoxaparin Sodium 40 mg 08/25/24 09:00 08/25/24 08:06 Enoxaparin 40 Mg/0.4 Ml Syringe SUB-Q 40 mg DAILY CORINNE Administration Ceftriaxone Sodium 2 gm in 100 mls @ 200 mls/hr 08/25/24 16:00 08/26/24 11:37 Rocephin 2 Gm/Ns 100 Ml IVPB Infused QAM [facility] Infusion Metronidazole 500 mg 08/25/24 16:00 08/26/24 05:44 Metronidazole 500 Mg Tablet PO 500 mg Q8HR [facility] Administration Miconazole Nitrate 1 applic 08/23/24 10:40 08/26/24 09:29 Miconazole Nitrate 2% Cream 30 Gm Tube TOPICAL Not Given Q12HR [facility] Midodrine 5 mg 08/24/24 09:00 08/26/24 09:29 Midodrine Hcl 2.5 Mg Tablet PO 5 mg TID [facility] Administration Morphine Sulfate 2 mg 08/24/24 16:12 08/24/24 16:23 Morphine Sulfate (*Crx) 2 Mg/Ml Inj IV PUSH 2 mg Q2H PRN Administration Pain Rated 7-10 Ondansetron HCl 4 mg 08/23/24 05:45 Ondansetron Inj 4 Mg/2 Ml Vial IV PUSH Q4H PRN Nausea Sodium Chloride 10 ml 08/23/24 14:00 08/26/24 05:45 Central Line Flush IV PUSH 10 ml Q8HR CORINNE Administration Sodium Chloride 10 ml 08/23/24 11:20 Central Line Flush IV PUSH PRN PRN with TPN bag changes Sodium Chloride 20 ml 08/23/24 11:20 Central Line Flush IV PUSH PRN PRN after blood draws Tamsulosin HCl 0.4 mg 08/23/24 09:00 08/26/24 09:29 Tamsulosin Hcl 0.4 Mg Capsule [facility] Administration Radiology Results: ITS Impressions Shoulder X-Ray 08/22/24 23:34 IMPRESSION: No acute osseous finding the left shoulder. Abdomen/Pelvis CT 08/23/24 05:20 Impression: 6.2 x 2.1 x 5.0 cm abscess along the inferior margin of the right hepatic lobe, possibly related to a dropped gallstone. Suspected extension into the inferior hepatic lobe with a 2.2 cm fluid attenuation area in the liver in this region, which is new from prior exam. 3.3 cm distal abdominal aortic aneurysm. Minimal pleural effusions with mild bibasilar pulmonary edema/atelectasis. 9 mm nonobstructing left renal stone. Chest X-Ray 08/23/24 11:22 IMPRESSION: 1. Right PICC line tip in the midsuperior vena cava. 2. Mild bibasilar opacities which could represent atelectasis, mild pulmonary edema or pneumonia. Abdomen Ultrasound 08/24/24 12:37 IMPRESSION: 1. 6.2 x 2.5 cm perihepatic abscess surrounding a likely dropped gallstone. 2. Small serpiginous fluid collections measuring up to 7 mm diameter within a 3.7 x 2.7 cm echogenic region within the immediately underlying liver. This consistent with a region of phlegmonous change progressing towards intrahepatic abscess. Abscess Drainage Ultrasound 08/24/24 16:50 IMPRESSION: 1. Successful ultrasound-guided or hepatic abscess drainage catheter placement. 2. 18 mL of opaque ruiz purulent appearing fluid was sent sent for aerobic, anaerobic, and fungal cultures. 3. The catheter will be managed by general surgery. Labs Labs: Laboratory Results - last 24 hr 08/26/24 05:53 WBC 12.4 H RBC 2.66 L Hgb 9.2 L Hct 28.0 L MCV 105.3 H MCH 34.6 H MCHC 32.9 RDW 14.9 H Plt Count 81 L MPV 10.9 H % Immature Plt Fraction 4.0 Sodium 138 Potassium 3.5 Chloride 111 H Carbon Dioxide 20 L Anion Gap 7 BUN 15 Creatinine 0.74 Estim Creat Clear Calc 61 Estimated GFR > 60 Glucose 88 Calcium 8.3 L Magnesium 2.0 Total Bilirubin 0.9 AST 42 ALT 92 H Alkaline Phosphatase 142 H Total Protein 5.8 L Albumin 2.9 L
[2024-08-26] MEDS: POTASSIUM CHLORIDE 20 MEQ PACKET (FOR LIQUID) 40 MEQ PO (13:06)
--- NOTE | 2024-08-26 16:46 | PM.IMPN ---
Progress Note: A&P Assessment and Plan (1) Septic shock: Code(s): A41.9 - Sepsis, unspecified organism; R65.21 - Severe sepsis with septic shock Status: Acute Assessment and Plan: Patient with neutropenic fever with HoTN present on admission. Lactic acid was 4.1. CT A/P showing a 6.2 x 2.1 x 5.0 cm abscess along the inferior margin of the right hepatic lobe, possibly related to a dropped gallstone with suspected extension into the inferior hepatic lobe with a 2.2 cm fluid attenuation area in the liver in this region CT Ch/A/P 05/22/23 does show a dropped GS in the same area. [place] patient had a dropped GS from Jan 2023 surgery with inflammation causing intermittent right flank pain. This may have become secondarily infected due to immunosuppressive medications and recent teeth extraction. BCx positive EColi in both sets Vanco and Cefepime started in ED. Cefepime changed to Meropenem 08/24. General Surgery consulted. Weaned off Levophed today. Follow up on BCx results. Vanco stopped. Drain placement today. (2) Neutropenia with fever: Code(s): D70.9 - Neutropenia, unspecified; R50.81 - Fever presenting with conditions classified elsewhere Status: Acute Assessment and Plan: WBC 900 with ANC 738. Neutropenic precautions. Oncology consulted -- WBC better today at 16.7K. -- Filgrastim ordered but not given. Hgb 12 but dropped to 9.5. Has chronic anemia. Monitor HH. -- Iron studies consistent with anemia of chronic disease. B12/Folate levels okay. Plt count 146K but dropped to 90K now felt related to sepsis. Continue to monitor. As above. (3) Intra-abdominal abscess: Code(s): K65.1 - Peritoneal abscess Status: Acute Assessment and Plan: CT A/P showing a 6.2cm abscess along the inferior margin of the right hepatic lobe with extension into the inferior hepatic lobe. Again noted is the dropped gallstone in this area. CT Ch/A/P 05/22/23 does show a dropped GS in this same area. [place] patient had a dropped GS from Jan 2023 GB surgery with inflammation causing intermittent right flank pain. This may have become secondarily infected due to immunosuppressive medications and recent teeth extraction. Drain placement planned As above. 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 He is being followed by Dr Leung. He was on Lonsurf but was having issues with anemia so recently changed to oral fruquintinib July 18. Request records. As above (5) Elevated LFTs: Code(s): R79.89 - Other specified abnormal findings of blood chemistry Status: Acute Assessment and Plan: LFTs elevated felt related to above. Follow for resolution. (6) Rash: Code(s): R21 - Rash and other nonspecific skin eruption Status: Acute Assessment and Plan: Appears to have fungal buttock rash. Continue anti-fungal. (7) Coronary artery disease: Code(s): I25.10 - Atherosclerotic heart disease of [place] coronary artery without angina pectoris Status: Acute Assessment and Plan: C in July 2022 with high grade stenosis to the LAD with EF 50-55%. Medical therapy was recommended but consider PCI that would be high risk. Home medications include: Plavix, metoprolol and crestor. Holding these home meds for now. (8) Abdominal aortic aneurysm: Code(s): I71.40 - Abdominal aortic aneurysm, without rupture, unspecified Status: Acute Assessment and Plan: CT in May 2022 showing AAA 3.[address] A/P here showing AAA at 3.3cm and stable. Defer to PCP for continued monitoring. Plan 84 y/o was found to have peritoneal abscess was seen by general surgery service and IR placed percutaneous drain, both blood and abscess are growing E coli and being treated with ceftiaoxane and Flagyl, patient clinical symptoms are improving, and surgery has signed off, will discuss with clinical pharmacist for duration of IV abx and switching over to Oral, will monitor and further recommendation to follow. Code status - full DVT prophylaxis - SCDs Subjective Date/time seen: 08/26/24 16:46 Interval history: 84 y/o was found to have peritoneal abscess was seen by general surgery service and IR placed percutaneous drain, both blood and abscess are growing E coli and being treated with ceftiaoxane and Flagyl, patient clinical symptoms are improving, and surgery has signed off, will discuss with clinical pharmacist for duration of IV abx and switching over to Oral, will monitor and further recommendation to follow. Review of Systems Review of Systems: All systems reviewed & are unremarkable except as noted in HPI and below (HPI) Exam Narrative: Elderly frail Patient is comfortable, NAD HEENT: eyes are clear and none icteric LUNGS:CTA HEART: RR S1S2 ABD: BS+, Soft and nontender Lower extremities: no edema SKIN: nonjaundiced Neuro: grossly intact. Objective Data Vital Signs Vital Signs: Vital Signs - 24 hr 08/25/24 18:00 08/25/24 20:00 08/25/24 20:00 Temperature 37.1 C Pulse Rate 66 59 L Respiratory Rate 16 Blood Pressure 105/63 Pulse Oximetry 96 Oxygen Delivery Room Air Fraction of Inspired Oxygen 08/25/24 20:00 08/25/24 20:38 08/25/24 22:00 Temperature Pulse Rate 59 L 80 60 Respiratory Rate 20 Blood Pressure Pulse Oximetry 96 Oxygen Delivery Room Air Fraction of Inspired Oxygen 21 08/25/24 23:34 08/25/24 23:48 08/26/24 00:00 Temperature 37.0 C Pulse Rate 59 L 56 L Respiratory Rate 15 Blood Pressure 123/68 Pulse Oximetry 98 Oxygen Delivery Room Air Fraction of Inspired Oxygen 08/26/24 02:00 08/26/24 03:37 08/26/24 04:00 Temperature 37.0 C Pulse Rate 63 63 Respiratory Rate 16 Blood Pressure 124/67 Pulse Oximetry 97 Oxygen Delivery Room Air Fraction of Inspired Oxygen 08/26/24 04:00 08/26/24 06:00 08/26/24 07:57 Temperature 36.8 C Pulse Rate 59 L 56 L 54 L Respiratory Rate 16 Blood Pressure 124/68 Pulse Oximetry 97 Oxygen Delivery Fraction of Inspired Oxygen 08/26/24 08:00 08/26/24 10:00 08/26/24 11:45 Temperature 36.9 C Pulse Rate 58 L 66 55 L Respiratory Rate 16 Blood Pressure 111/66 Pulse Oximetry 98 Oxygen Delivery Fraction of Inspired Oxygen 08/26/24 12:00 08/26/24 12:51 08/26/24 14:00 Temperature Pulse Rate 59 L 62 Respiratory Rate Blood Pressure Pulse Oximetry Oxygen Delivery Room Air Fraction of Inspired Oxygen 08/26/24 16:00 08/26/24 16:00 Temperature 36.6 C Pulse Rate 65 58 L Respiratory Rate 20 Blood Pressure 131/72 Pulse Oximetry 97 Oxygen Delivery Fraction of Inspired Oxygen Intake/Output Intake/Output: Intake & Output 08/23/24 08/24/24 08/25/24 08/26/24 23:59 23:59 23:59 23:59 Intake Total 3607.1 3021.2 1330 1500 Output Total 700 1018 1770 850 Balance 2907.1 2003.2 -440 650 Meds/Results Medications: Active Medications Generic Name Dose Route Start Last Admin Trade Name Freq PRN Reason Stop Dose Admin Acetaminophen 650 mg 08/23/24 05:45 08/25/24 00:13 Acetaminophen 325 Mg Tablet PO 650 mg Q4H PRN Administration Mild Pain (1-3) or Fever Aspirin 81 mg 08/25/24 09:00 08/26/24 09:30 Aspirin 81 Mg Enteric Tablet PO Not Given QAM [facility] Clopidogrel Bisulfate 75 mg 08/25/24 09:00 08/26/24 09:29 Clopidogrel Bisulfate 75 Mg Tablet PO 75 mg QAM [facility] Administration Enoxaparin Sodium 40 mg 08/25/24 09:00 08/25/24 08:06 Enoxaparin 40 Mg/0.4 Ml Syringe SUB-Q 40 mg DAILY [facility] Administration Ceftriaxone Sodium 2 gm in 100 mls @ 200 mls/hr 08/25/24 16:00 08/26/24 11:37 Rocephin 2 Gm/Ns 100 Ml IVPB Infused QAM [facility] Infusion Metronidazole 500 mg 08/25/24 16:00 08/26/24 13:06 Metronidazole 500 Mg Tablet PO 500 mg Q8HR [facility] Administration Miconazole Nitrate 1 applic 08/23/24 10:40 08/26/24 09:29 Miconazole Nitrate 2% Cream 30 Gm Tube TOPICAL Not Given Q12HR [facility] Midodrine 5 mg 08/24/24 09:00 08/26/24 13:06 Midodrine Hcl 2.5 Mg Tablet PO 5 mg TID [facility] Administration Morphine Sulfate 2 mg 08/24/24 16:12 08/24/24 16:23 Morphine Sulfate (*Crx) 2 Mg/Ml Inj IV PUSH 2 mg Q2H PRN Administration Pain Rated 7-10 Ondansetron HCl 4 mg 08/23/24 05:45 Ondansetron Inj 4 Mg/2 Ml Vial IV PUSH Q4H PRN Nausea Sodium Chloride 10 ml 08/23/24 14:00 08/26/24 16:44 Central Line Flush IV PUSH 10 ml Q8HR [facility] Administration Sodium Chloride 10 ml 08/23/24 11:20 Central Line Flush IV PUSH PRN PRN with TPN bag changes Sodium Chloride 20 ml 08/23/24 11:20 Central Line Flush IV PUSH PRN PRN after blood draws Tamsulosin HCl 0.4 mg 08/23/24 09:00 08/26/24 09:29 Tamsulosin Hcl 0.4 Mg Capsule PO 0.4 mg QAM [facility] Administration Radiology Results: ITS Impressions Shoulder X-Ray 08/22/24 23:34 IMPRESSION: No acute osseous finding the left shoulder. Abdomen/Pelvis CT 08/23/24 05:20 Impression: 6.2 x 2.1 x 5.0 cm abscess along the inferior margin of the right hepatic lobe, possibly related to a dropped gallstone. Suspected extension into the inferior hepatic lobe with a 2.2 cm fluid attenuation area in the liver in this region, which is new from prior exam. 3.3 cm distal abdominal aortic aneurysm. Minimal pleural effusions with mild bibasilar pulmonary edema/atelectasis. 9 mm nonobstructing left renal stone. Chest X-Ray 08/23/24 11:22 IMPRESSION: 1. Right PICC line tip in the midsuperior vena cava. 2. Mild bibasilar opacities which could represent atelectasis, mild pulmonary edema or pneumonia. Abdomen Ultrasound 08/24/24 12:37 IMPRESSION: 1. 6.2 x 2.5 cm perihepatic abscess surrounding a likely dropped gallstone. 2. Small serpiginous fluid collections measuring up to 7 mm diameter within a 3.7 x 2.7 cm echogenic region within the immediately underlying liver. This consistent with a region of phlegmonous change progressing towards intrahepatic abscess. Abscess Drainage Ultrasound 08/24/24 16:50 IMPRESSION: 1. Successful ultrasound-guided or hepatic abscess drainage catheter placement. 2. 18 mL of opaque ruiz purulent appearing fluid was sent sent for aerobic, anaerobic, and fungal cultures. 3. The catheter will be managed by general surgery. Labs Labs: Laboratory Results - last 24 hr 08/26/24 05:53 WBC 12.4 H RBC 2.66 L Hgb 9.2 L Hct 28.0 L MCV 105.3 H MCH 34.6 H MCHC 32.9 RDW 14.9 H Plt Count 81 L MPV 10.9 H % Immature Plt Fraction 4.0 Sodium 138 Potassium 3.5 Chloride 111 H Carbon Dioxide 20 L Anion Gap 7 BUN 15 Creatinine 0.74 Estim Creat Clear Calc 61 Estimated GFR > 60 Glucose 88 Calcium 8.3 L Magnesium 2.0 Total Bilirubin 0.9 AST 42 ALT 92 H Alkaline Phosphatase 142 H Total Protein 5.8 L Albumin 2.9 L
[2024-08-27] VITALS (9 sets, daily range): BP systolic 96–124; BP diastolic 61–70; PULSE 56–73; RESP 16–18; TEMP 36.9; O2SAT 95–99
[2024-08-27] MEDS: MORPHINE SULFATE (*CRX) 2 MG/ML INJ IV PUSH (05:07)
[2024-08-27] MEDS: metroNIDAZOLE 500 MG TABLET PO ×3 (05:18→22:26)
[2024-08-27] MEDS: CENTRAL LINE FLUSH 10 ML IV PUSH ×3 (05:36→22:32)
[2024-08-27 05:40] LABS: Hematocrit 30.4 % (42.0-52.0); Hemoglobin 9.8 g/dL (14.0-18.0); Immature Platelet Fraction Pct 4.5 % (0.9-11.2); Mean Corpuscular HGB Conc 32.2 g/dl (32-36); Mean Corpuscular Hemoglobin 33.1 pg (26-34); Mean Corpuscular Volume 102.7 fl (80-100); Mean Platelet Volume 11.3 fl (7.4-10.4); Platelet Count Result 89 k/mm3 (150-375); Red Blood Count 2.96 M/mm3 (4.6-6.20); Red Cell Distribution Width 14.5 % (11.5-14.5); White Blood Count 8.8 K/mm3 (4.5-10.0)
[2024-08-27 05:56] LABS: Alanine Aminotransferase 74 U/L (6-50); Albumin Level 2.9 g/dL (3.5-5.1); Alkaline Phosphatase 131 U/L (38-126); Anion Gap 6 mmol/L (4-12); Aspartate Amino Transferase 33 U/L (17-59); Bilirubin,Total 0.7 mg/dL (0.2-1.3); Blood Urea Nitrogen 14 mg/dL (9-20); Calcium 8.2 mg/dL (8.4-10.2); Carbon Dioxide 22 mmol/L (22-30); Chloride 105 mmol/L (98-107); Estimated CRCL calculation 64 ml/min; Estimated Glomerular Filt Rate > 60; Glucose 95 mg/dL (65-110); Potassium 3.5 mmol/L (3.4-5.0); Sodium 133 mmol/L (137-145); Total Protein 5.8 g/dL (6.3-8.2)
[2024-08-27] MEDS: TAMSULOSIN HCL 0.4 MG CAPSULE PO (09:08)
[2024-08-27] MEDS: cefTRIAXone 2 GM/NS 100 ML 2 GM/100 ML BAG IVPB (09:08)
[2024-08-27] MEDS: MIDODRINE HCL 2.5 MG TABLET 5 MG PO ×3 (09:08→16:52)
[2024-08-27] MEDS: CLOPIDOGREL BISULFATE 75 MG TABLET PO (09:09)
[2024-08-27] MEDS: MICONAZOLE NITRATE 2% CREAM 30 GM TUBE 1 APPLIC TOPICAL ×2 (09:45→22:32)
--- NOTE | 2024-08-27 14:30 | PC.NURSE ---
Med/Surg status--transferred to room 345 via bed accompanied by staff- personal belongings with pt- Report given to Swapna JAFFE- Son Theodore notified of transfer
--- NOTE | 2024-08-27 15:03 | PM.IMPN ---
Progress Note: A&P Assessment and Plan (1) Septic shock: Code(s): A41.9 - Sepsis, unspecified organism; R65.21 - Severe sepsis with septic shock Status: Acute Assessment and Plan: Patient with neutropenic fever with HoTN present on admission. Lactic acid was 4.1. CT A/P showing a 6.2 x 2.1 x 5.0 cm abscess along the inferior margin of the right hepatic lobe, possibly related to a dropped gallstone with suspected extension into the inferior hepatic lobe with a 2.2 cm fluid attenuation area in the liver in this region CT Ch/A/P 05/22/23 does show a dropped GS in the same area. [place] patient had a dropped GS from Jan 2023 surgery with inflammation causing intermittent right flank pain. This may have become secondarily infected due to immunosuppressive medications and recent teeth extraction. BCx positive EColi in both sets Vanco and Cefepime started in ED. Cefepime changed to Meropenem 08/24. General Surgery consulted. Weaned off Levophed today. Follow up on BCx results. Vanco stopped. Drain placement today. (2) Neutropenia with fever: Code(s): D70.9 - Neutropenia, unspecified; R50.81 - Fever presenting with conditions classified elsewhere Status: Acute Assessment and Plan: WBC 900 with ANC 738. Neutropenic precautions. Oncology consulted -- WBC better today at 16.7K. -- Filgrastim ordered but not given. Hgb 12 but dropped to 9.5. Has chronic anemia. Monitor HH. -- Iron studies consistent with anemia of chronic disease. B12/Folate levels okay. Plt count 146K but dropped to 90K now felt related to sepsis. Continue to monitor. As above. (3) Intra-abdominal abscess: Code(s): K65.1 - Peritoneal abscess Status: Acute Assessment and Plan: CT A/P showing a 6.2cm abscess along the inferior margin of the right hepatic lobe with extension into the inferior hepatic lobe. Again noted is the dropped gallstone in this area. CT Ch/A/P 05/22/23 does show a dropped GS in this same area. [place] patient had a dropped GS from Jan 2023 GB surgery with inflammation causing intermittent right flank pain. This may have become secondarily infected due to immunosuppressive medications and recent teeth extraction. Drain placement planned As above. 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 He is being followed by Dr Leung. He was on Lonsurf but was having issues with anemia so recently changed to oral fruquintinib July 18. Request records. As above (5) Elevated LFTs: Code(s): R79.89 - Other specified abnormal findings of blood chemistry Status: Acute Assessment and Plan: LFTs elevated felt related to above. Follow for resolution. (6) Rash: Code(s): R21 - Rash and other nonspecific skin eruption Status: Acute Assessment and Plan: Appears to have fungal buttock rash. Continue anti-fungal. (7) Coronary artery disease: Code(s): I25.10 - Atherosclerotic heart disease of [place] coronary artery without angina pectoris Status: Acute Assessment and Plan: C in July 2022 with high grade stenosis to the LAD with EF 50-55%. Medical therapy was recommended but consider PCI that would be high risk. Home medications include: Plavix, metoprolol and crestor. Holding these home meds for now. (8) Abdominal aortic aneurysm: Code(s): I71.40 - Abdominal aortic aneurysm, without rupture, unspecified Status: Acute Assessment and Plan: CT in May 2022 showing AAA 3.[address] A/P here showing AAA at 3.3cm and stable. Defer to PCP for continued monitoring. Plan 84 y/o was found to have peritoneal abscess was seen by general surgery service and IR placed percutaneous drain, both blood and abscess are growing E coli and being treated with ceftiaoxane and Flagyl, patient clinical symptoms are improving, and surgery has signed off, will discuss with clinical pharmacist for duration of IV abx and switching over to Oral, will repeat blood and abscess culture, if the infection is clearing, will monitor and further recommendation to follow. patient remains clinically stable, patient son is present and gave updates. Code status - full DVT prophylaxis - SCDs Subjective Date/time seen: 08/27/24 15:03 Interval history: 84 y/o was found to have peritoneal abscess was seen by general surgery service and IR placed percutaneous drain, both blood and abscess are growing E coli and being treated with ceftiaoxane and Flagyl, patient clinical symptoms are improving, and surgery has signed off, will discuss with clinical pharmacist for duration of IV abx and switching over to Oral, will repeat blood and abscess culture, if the infection is clearing, will monitor and further recommendation to follow. patient remains clinically stable, patient son is present and gave updates. Review of Systems Review of Systems: All systems reviewed & are unremarkable except as noted in HPI and below (HPI) Exam Narrative: Elderly frail Patient is comfortable, NAD HEENT: eyes are clear and none icteric LUNGS:CTA HEART: RR S1S2 ABD: BS+, Soft and nontender Lower extremities: no edema SKIN: nonjaundiced Neuro: grossly intact. Objective Data Vital Signs Vital Signs: Vital Signs - 24 hr 08/26/24 16:00 08/26/24 16:00 08/26/24 18:00 Temperature 36.6 C Pulse Rate 65 58 L 63 Respiratory Rate 20 Blood Pressure 131/72 Pulse Oximetry 97 Oxygen Delivery Fraction of Inspired Oxygen 08/26/24 19:51 08/26/24 20:00 08/26/24 20:15 Temperature 37.0 C Pulse Rate 62 61 Respiratory Rate 15 Blood Pressure 123/69 Pulse Oximetry 98 Oxygen Delivery Room Air Fraction of Inspired Oxygen 08/26/24 20:45 08/26/24 22:00 08/26/24 23:57 Temperature 37.0 C Pulse Rate 61 63 61 Respiratory Rate 16 Blood Pressure 131/68 Pulse Oximetry 96 98 Oxygen Delivery Room Air Fraction of Inspired Oxygen 21 08/27/24 00:00 08/27/24 00:10 08/27/24 02:00 Temperature Pulse Rate 61 57 L Respiratory Rate Blood Pressure Pulse Oximetry Oxygen Delivery Room Air Fraction of Inspired Oxygen 08/27/24 04:00 08/27/24 04:00 08/27/24 04:20 Temperature 36.9 C Pulse Rate 56 L 73 Respiratory Rate 16 Blood Pressure 124/69 Pulse Oximetry 97 Oxygen Delivery Room Air Fraction of Inspired Oxygen 08/27/24 06:00 08/27/24 08:00 08/27/24 08:40 Temperature 36.9 C Pulse Rate 64 65 72 Respiratory Rate 18 Blood Pressure 119/70 Pulse Oximetry 95 Oxygen Delivery Fraction of Inspired Oxygen 08/27/24 12:00 08/27/24 13:15 Temperature 36.9 C Pulse Rate 66 Respiratory Rate 16 Blood Pressure 96/61 L Pulse Oximetry 98 Oxygen Delivery Room Air Fraction of Inspired Oxygen Intake/Output Intake/Output: Intake & Output 08/24/24 08/25/24 08/26/24 08/27/24 23:59 23:59 23:59 23:59 Intake Total 3021.2 1330 1740 910 Output Total 1018 1770 1250 625 Balance 2003.2 -440 490 285 Meds/Results Medications: Active Medications Generic Name Dose Route Start Last Admin Trade Name Freq PRN Reason Stop Dose Admin Acetaminophen 650 mg 08/23/24 05:45 08/25/24 00:13 Acetaminophen 325 Mg Tablet PO 650 mg Q4H PRN Administration Mild Pain (1-3) or Fever Clopidogrel Bisulfate 75 mg 08/25/24 09:00 08/27/24 09:09 Clopidogrel Bisulfate 75 Mg Tablet PO 75 mg QAM [facility] Administration Enoxaparin Sodium 40 mg 08/25/24 09:00 08/25/24 08:06 Enoxaparin 40 Mg/0.4 Ml Syringe SUB-Q 40 mg DAILY [facility] Administration Ceftriaxone Sodium 2 gm in 100 mls @ 200 mls/hr 08/25/24 16:00 08/27/24 09:08 Rocephin 2 Gm/Ns 100 Ml IVPB 200 mls/hr QAM [facility] Administration Metronidazole 500 mg 08/25/24 16:00 08/27/24 13:38 Metronidazole 500 Mg Tablet PO 500 mg Q8HR [facility] Administration Miconazole Nitrate 1 applic 08/23/24 10:40 08/27/24 09:45 Miconazole Nitrate 2% Cream 30 Gm Tube TOPICAL 1 applic Q12HR [facility] Administration Midodrine 5 mg 08/24/24 09:00 08/27/24 13:38 Midodrine Hcl 2.5 Mg Tablet PO 5 mg TID [facility] Administration Morphine Sulfate 2 mg 08/24/24 16:12 08/27/24 05:07 Morphine Sulfate (*Crx) 2 Mg/Ml Inj IV PUSH 2 mg Q2H PRN Administration Pain Rated 7-10 Ondansetron HCl 4 mg 08/23/24 05:45 Ondansetron Inj 4 Mg/2 Ml Vial IV PUSH Q4H PRN Nausea Sodium Chloride 10 ml 08/23/24 14:00 08/27/24 05:36 Central Line Flush IV PUSH 10 ml Q8HR [facility] Administration Sodium Chloride 10 ml 08/23/24 11:20 Central Line Flush IV PUSH PRN PRN with TPN bag changes Sodium Chloride 20 ml 08/23/24 11:20 Central Line Flush IV PUSH PRN PRN after blood draws Tamsulosin HCl 0.4 mg 08/23/24 09:00 08/27/24 09:08 Tamsulosin Hcl 0.4 Mg Capsule PO 0.4 mg QAM [facility] Administration Radiology Results: ITS Impressions Shoulder X-Ray 08/22/24 23:34 IMPRESSION: No acute osseous finding the left shoulder. Abdomen/Pelvis CT 08/23/24 05:20 Impression: 6.2 x 2.1 x 5.0 cm abscess along the inferior margin of the right hepatic lobe, possibly related to a dropped gallstone. Suspected extension into the inferior hepatic lobe with a 2.2 cm fluid attenuation area in the liver in this region, which is new from prior exam. 3.3 cm distal abdominal aortic aneurysm. Minimal pleural effusions with mild bibasilar pulmonary edema/atelectasis. 9 mm nonobstructing left renal stone. Chest X-Ray 08/23/24 11:22 IMPRESSION: 1. Right PICC line tip in the midsuperior vena cava. 2. Mild bibasilar opacities which could represent atelectasis, mild pulmonary edema or pneumonia. Abdomen Ultrasound 08/24/24 12:37 IMPRESSION: 1. 6.2 x 2.5 cm perihepatic abscess surrounding a likely dropped gallstone. 2. Small serpiginous fluid collections measuring up to 7 mm diameter within a 3.7 x 2.7 cm echogenic region within the immediately underlying liver. This consistent with a region of phlegmonous change progressing towards intrahepatic abscess. Abscess Drainage Ultrasound 08/24/24 16:50 IMPRESSION: 1. Successful ultrasound-guided or hepatic abscess drainage catheter placement. 2. 18 mL of opaque ruzi purulent appearing fluid was sent sent for aerobic, anaerobic, and fungal cultures. 3. The catheter will be managed by general surgery. Labs Labs: Laboratory Results - last 24 hr 08/27/24 05:17 WBC 8.8 RBC 2.96 L Hgb 9.8 L Hct 30.4 L MCV 102.7 H MCH 33.1 MCHC 32.2 RDW 14.5 Plt Count 89 L MPV 11.3 H % Immature Plt Fraction 4.5 Sodium 133 L Potassium 3.5 Chloride 105 Carbon Dioxide 22 Anion Gap 6 BUN 14 Creatinine 0.70 Estim Creat Clear Calc 64 Estimated GFR > 60 Glucose 95 Calcium 8.2 L Magnesium 2.0 Total Bilirubin 0.7 AST 33 ALT 74 H Alkaline Phosphatase 131 H Total Protein 5.8 L Albumin 2.9 L
[2024-08-28 05:03] VITALS: BP 100/64; PULSE 86; RESP 16; TEMP 37; O2SAT 97
[2024-08-28] MEDS: MORPHINE SULFATE (*CRX) 2 MG/ML INJ IV PUSH (05:06)
[2024-08-28] MEDS: CENTRAL LINE FLUSH 10 ML IV PUSH ×3 (05:06→20:37)
[2024-08-28] MEDS: metroNIDAZOLE 500 MG TABLET PO ×3 (05:06→20:37)
[2024-08-28 05:46] LABS: Hematocrit 30.6 % (42.0-52.0); Mean Corpuscular HGB Conc 32.7 g/dl (32-36); Mean Corpuscular Hemoglobin 33.4 pg (26-34); Mean Corpuscular Volume 102.3 fl (80-100); Platelet Count Result 114 k/mm3 (150-375); Red Blood Count 2.99 M/mm3 (4.6-6.20); Red Cell Distribution Width 14.6 % (11.5-14.5); White Blood Count 7.6 K/mm3 (4.5-10.0)
[2024-08-28 05:57] LABS: Alanine Aminotransferase 57 U/L (6-50); Alkaline Phosphatase 129 U/L (38-126); Anion Gap 8 mmol/L (4-12); Aspartate Amino Transferase 30 U/L (17-59); Bilirubin,Total 0.8 mg/dL (0.2-1.3); Blood Urea Nitrogen 15 mg/dL (9-20); Calcium 8.3 mg/dL (8.4-10.2); Carbon Dioxide 22 mmol/L (22-30); Chloride 104 mmol/L (98-107); Estimated CRCL calculation 58 ml/min; Estimated Glomerular Filt Rate > 60; Glucose 99 mg/dL (65-110); Potassium 3.5 mmol/L (3.4-5.0); Sodium 134 mmol/L (137-145); Total Protein 6.2 g/dL (6.3-8.2)
[2024-08-28 08:00] VITALS: PULSE 86; RESP 16; O2SAT 97
[2024-08-28] MEDS: CLOPIDOGREL BISULFATE 75 MG TABLET PO (09:38)
[2024-08-28] MEDS: cefTRIAXone 2 GM/NS 100 ML 2 GM/100 ML BAG IVPB (09:38)
[2024-08-28] MEDS: MICONAZOLE NITRATE 2% CREAM 30 GM TUBE 1 APPLIC TOPICAL ×2 (09:38→20:38)
[2024-08-28] MEDS: TAMSULOSIN HCL 0.4 MG CAPSULE PO (09:38)
[2024-08-28] MEDS: MIDODRINE HCL 2.5 MG TABLET 5 MG PO ×2 (12:39→17:33)
[2024-08-28 16:00] VITALS: BP 103/67; PULSE 57; RESP 16; TEMP 36.8; O2SAT 97
[2024-08-28 17:30] VITALS: BP 114/64; PULSE 76; RESP 18; TEMP 36.5; O2SAT 100
[2024-08-28 21:56] VITALS: BP 108/64; PULSE 63; RESP 16; TEMP 36.9; O2SAT 97
[2024-08-29] MEDS: CENTRAL LINE FLUSH 10 ML IV PUSH ×3 (05:26→21:02)
[2024-08-29] MEDS: metroNIDAZOLE 500 MG TABLET PO ×3 (05:26→21:01)
[2024-08-29 06:07] LABS: Hematocrit 29.7 % (42.0-52.0); Hemoglobin 9.8 g/dL (14.0-18.0); Mean Corpuscular Hemoglobin 33.9 pg (26-34); Mean Corpuscular Volume 102.8 fl (80-100); Platelet Count Result 118 k/mm3 (150-375); Red Blood Count 2.89 M/mm3 (4.6-6.20); Red Cell Distribution Width 14.8 % (11.5-14.5); White Blood Count 7.3 K/mm3 (4.5-10.0)
[2024-08-29 06:30] LABS: Alanine Aminotransferase 43 U/L (6-50); Albumin Level 2.9 g/dL (3.5-5.1); Alkaline Phosphatase 122 U/L (38-126); Anion Gap 5 mmol/L (4-12); Aspartate Amino Transferase 29 U/L (17-59); Bilirubin,Total 0.9 mg/dL (0.2-1.3); Blood Urea Nitrogen 14 mg/dL (9-20); Calcium 8.1 mg/dL (8.4-10.2); Carbon Dioxide 22 mmol/L (22-30); Chloride 106 mmol/L (98-107); Estimated CRCL calculation 61 ml/min; Estimated Glomerular Filt Rate > 60; Glucose 94 mg/dL (65-110); Magnesium 2.2 mg/dL (1.6-2.3); Potassium 3.6 mmol/L (3.4-5.0); Sodium 133 mmol/L (137-145)
[2024-08-29 08:00] VITALS: PULSE 63; RESP 16; O2SAT 97
[2024-08-29] MEDS: MIDODRINE HCL 2.5 MG TABLET 5 MG PO ×3 (09:33→17:28)
[2024-08-29] MEDS: TAMSULOSIN HCL 0.4 MG CAPSULE PO (11:33)
[2024-08-29] MEDS: CLOPIDOGREL BISULFATE 75 MG TABLET PO (11:33)
[2024-08-29] MEDS: cefTRIAXone 2 GM/NS 100 ML 2 GM/100 ML BAG IVPB (11:33)
[2024-08-29] MEDS: MICONAZOLE NITRATE 2% CREAM 30 GM TUBE 1 APPLIC TOPICAL ×2 (11:33→21:02)
--- NOTE | 2024-08-29 12:15 | PM.PNGS ---
Progress Note: A&P Assessment and Plan (1) Intra-abdominal abscess: Code(s): K65.1 - Peritoneal abscess Status: Acute Assessment and Plan: S/p percutaneous drainage in IR. Blood and urine cultures growing E. coli. Continue IV antibiotics and monitor percutaneous drain OK to discharge from surgical standpoint. Spoke with hospitalist who is awaiting culture results prior to discharge. Patient will be discharged with drain in and follow up in office to assess drain and discuss surgery to remove retained gallstone. 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 Graham. Subjective Subjective Date/Time Seen: 08/29/24 12:15 Interval history: Patient states that pain is improved today. Normal WBC. Afebrile. Minimal serosanguineous fluid from drain. Exam Narrative: Drain site clean and dry with no surrounding redness or erythema. Minimal serosanguineous output from drain. Objective Data Vital Signs Vital Signs: Vital Signs - 24 hr 08/28/24 16:00 08/28/24 17:30 08/28/24 20:00 Temperature 98.3 F 97.7 F Pulse Rate 57 L 76 Respiratory Rate 16 18 Blood Pressure 103/67 114/64 Pulse Oximetry 97 100 Oxygen Delivery Room Air Fraction of Inspired Oxygen 08/28/24 21:56 08/29/24 08:00 Temperature 98.4 F Pulse Rate 63 63 Respiratory Rate 16 16 Blood Pressure 108/64 Pulse Oximetry 97 97 Oxygen Delivery Room Air Fraction of Inspired Oxygen 21 Intake/Output Intake/Output: Intake & Output 08/26/24 08/27/24 08/28/24 08/29/24 23:59 23:59 23:59 23:59 Intake Total 1740 1989 2620 240 Output Total 1250 1725 500 Balance 504 047 7251 240 Meds/Results Medications: Active Medications Generic Name Dose Route Start Last Admin Trade Name Freq PRN Reason Stop Dose Admin Acetaminophen 650 mg 08/23/24 05:45 08/25/24 00:13 Acetaminophen 325 Mg Tablet PO 650 mg Q4H PRN Administration Mild Pain (1-3) or Fever Clopidogrel Bisulfate 75 mg 08/25/24 09:00 08/29/24 11:33 Clopidogrel Bisulfate 75 Mg Tablet PO 75 mg QAM [facility] Administration Enoxaparin Sodium 40 mg 08/25/24 09:00 08/25/24 08:06 Enoxaparin 40 Mg/0.4 Ml Syringe SUB-Q 40 mg DAILY CORINNE Administration Ceftriaxone Sodium 2 gm in 100 mls @ 200 mls/hr 08/25/24 16:00 08/29/24 11:33 Rocephin 2 Gm/Ns 100 Ml IVPB 200 mls/hr QAM [facility] Administration Metronidazole 500 mg 08/25/24 16:00 08/29/24 05:26 Metronidazole 500 Mg Tablet PO 500 mg Q8HR CORINNE Administration Miconazole Nitrate 1 applic 08/23/24 10:40 08/29/24 11:33 Miconazole Nitrate 2% Cream 30 Gm Tube TOPICAL 1 applic Q12HR CORINNE Administration Midodrine 5 mg 08/24/24 09:00 08/29/24 09:33 Midodrine Hcl 2.5 Mg Tablet PO 5 mg TID CORINNE Administration Morphine Sulfate 2 mg 08/24/24 16:12 08/28/24 05:06 Morphine Sulfate (*Crx) 2 Mg/Ml Inj IV PUSH 2 mg Q2H PRN Administration Pain Rated 7-10 Ondansetron HCl 4 mg 08/23/24 05:45 Ondansetron Inj 4 Mg/2 Ml Vial IV PUSH Q4H PRN Nausea Sodium Chloride 10 ml 08/23/24 14:00 08/29/24 05:26 Central Line Flush IV PUSH 10 ml Q8HR CORINNE Administration Sodium Chloride 10 ml 08/23/24 11:20 Central Line Flush IV PUSH PRN PRN with TPN bag changes Sodium Chloride 20 ml 08/23/24 11:20 Central Line Flush IV PUSH PRN PRN after blood draws Tamsulosin HCl 0.4 mg 08/23/24 09:00 08/29/24 11:33 Tamsulosin Hcl 0.4 Mg Capsule PO 0.4 mg QAM CORIN[facility] Administration Radiology Results: ITS Impressions Shoulder X-Ray 08/22/24 23:34 IMPRESSION: No acute osseous finding the left shoulder. Abdomen/Pelvis CT 08/23/24 05:20 Impression: 6.2 x 2.1 x 5.0 cm abscess along the inferior margin of the right hepatic lobe, possibly related to a dropped gallstone. Suspected extension into the inferior hepatic lobe with a 2.2 cm fluid attenuation area in the liver in this region, which is new from prior exam. 3.3 cm distal abdominal aortic aneurysm. Minimal pleural effusions with mild bibasilar pulmonary edema/atelectasis. 9 mm nonobstructing left renal stone. Chest X-Ray 08/23/24 11:22 IMPRESSION: 1. Right PICC line tip in the midsuperior vena cava. 2. Mild bibasilar opacities which could represent atelectasis, mild pulmonary edema or pneumonia. Abdomen Ultrasound 08/24/24 12:37 IMPRESSION: 1. 6.2 x 2.5 cm perihepatic abscess surrounding a likely dropped gallstone. 2. Small serpiginous fluid collections measuring up to 7 mm diameter within a 3.7 x 2.7 cm echogenic region within the immediately underlying liver. This consistent with a region of phlegmonous change progressing towards intrahepatic abscess. Abscess Drainage Ultrasound 08/24/24 16:50 IMPRESSION: 1. Successful ultrasound-guided or hepatic abscess drainage catheter placement. 2. 18 mL of opaque ruiz purulent appearing fluid was sent sent for aerobic, anaerobic, and fungal cultures. 3. The catheter will be managed by general surgery. Labs Labs: Laboratory Results - last 24 hr 08/29/24 05:32 WBC 7.3 RBC 2.89 L Hgb 9.8 L Hct 29.7 L MCV 102.8 H MCH 33.9 MCHC 33.0 RDW 14.8 H Plt Count 118 L MPV 11.0 H Sodium 133 L Potassium 3.6 Chloride 106 Carbon Dioxide 22 Anion Gap 5 BUN 14 Creatinine 0.65 L Estim Creat Clear Calc 61 Estimated GFR > 60 Glucose 94 Calcium 8.1 L Magnesium 2.2 Total Bilirubin 0.9 AST 29 ALT 43 Alkaline Phosphatase 122 Total Protein 6.0 L Albumin 2.9 L
[2024-08-29 14:00] VITALS: BP 105/64; PULSE 60; RESP 16; TEMP 36.9; O2SAT 100
--- NOTE | 2024-08-29 15:56 | P.PNIM_ITS ---
Progress Note: A&P Assessment and Plan (1) Septic shock: Code(s): A41.9 - Sepsis, unspecified organism; R65.21 - Severe sepsis with septic shock Status: Acute Assessment and Plan: Patient with neutropenic fever with HoTN present on admission. Lactic acid was 4.1. CT A/P showing a 6.2 x 2.1 x 5.0 cm abscess along the inferior margin of the right hepatic lobe, possibly related to a dropped gallstone with suspected extension into the inferior hepatic lobe with a 2.2 cm fluid attenuation area in the liver in this region CT Ch/A/P 05/22/23 does show a dropped GS in the same area. [place] patient had a dropped GS from Jan 2023 surgery with inflammation causing intermittent right flank pain. This may have become secondarily infected due to immunosuppressive medications and recent teeth extraction. BCx positive EColi in both sets Vanco and Cefepime started in ED. Cefepime changed to Meropenem 08/24. General Surgery consulted. Weaned off Levophed today. Follow up on BCx results. Vanco stopped. Drain placement today. (2) Neutropenia with fever: Code(s): D70.9 - Neutropenia, unspecified; R50.81 - Fever presenting with conditions classified elsewhere Status: Acute Assessment and Plan: WBC 900 with ANC 738. Neutropenic precautions. Oncology consulted -- WBC better today at 16.7K. -- Filgrastim ordered but not given. Hgb 12 but dropped to 9.5. Has chronic anemia. Monitor HH. -- Iron studies consistent with anemia of chronic disease. B12/Folate levels okay. Plt count 146K but dropped to 90K now felt related to sepsis. Continue to monitor. As above. (3) Intra-abdominal abscess: Code(s): K65.1 - Peritoneal abscess Status: Acute Assessment and Plan: CT A/P showing a 6.2cm abscess along the inferior margin of the right hepatic lobe with extension into the inferior hepatic lobe. Again noted is the dropped gallstone in this area. CT Ch/A/P 05/22/23 does show a dropped GS in this same area. [place] patient had a dropped GS from Jan 2023 [facility] surgery with inflammation causing intermittent right flank pain. This may have become secondarily infected due to immunosuppressive medications and recent teeth extraction. Drain placement planned As above. 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 He is being followed by Dr Leung. He was on Lonsurf but was having issues with anemia so recently changed to oral fruquintinib July 18. Request records. As above (5) Elevated LFTs: Code(s): R79.89 - Other specified abnormal findings of blood chemistry Status: Acute Assessment and Plan: LFTs elevated felt related to above. Follow for resolution. (6) Rash: Code(s): R21 - Rash and other nonspecific skin eruption Status: Acute Assessment and Plan: Appears to have fungal buttock rash. Continue anti-fungal. (7) Coronary artery disease: Code(s): I25.10 - Atherosclerotic heart disease of [place] coronary artery without angina pectoris Status: Acute Assessment and Plan: C in July 2022 with high grade stenosis to the LAD with EF 50-55%. Medical therapy was recommended but consider PCI that would be high risk. Home medications include: Plavix, metoprolol and crestor. Holding these home meds for now. (8) Abdominal aortic aneurysm: Code(s): I71.40 - Abdominal aortic aneurysm, without rupture, unspecified Status: Acute Assessment and Plan: CT in May 2022 showing AAA 3.[address] A/P here showing AAA at 3.3cm and stable. Defer to PCP for continued monitoring. Plan 84 y/o was found to have peritoneal abscess was seen by general surgery service and IR placed percutaneous drain, both blood and abscess are growing E coli and being treated with ceftiaoxane and Flagyl, patient clinical symptoms are improving, and surgery has signed off, will discuss with clinical pharmacist for duration of IV abx and switching over to Oral, will repeat blood and abscess culture, if the infection is clearing, still waiting for the results of repeat blood culture, will monitor and further recommendation to follow. patient remains clinically stable, patient's son his are present and gave updates. Code status - full DVT prophylaxis - SCDs Subjective Date/time seen: 08/29/24 15:56 Interval history: 84 y/o was found to have peritoneal abscess was seen by general surgery service and IR placed percutaneous drain, both blood and abscess are growing E coli and being treated with ceftiaoxane and Flagyl, patient clinical symptoms are improving, and surgery has signed off, will discuss with clinical pharmacist for duration of IV abx and switching over to Oral, will repeat blood and abscess culture, if the infection is clearing, still waiting for the results of repeat blood culture, will monitor and further recommendation to follow. patient remains clinically stable, patient's son his are present and gave updates. Review of Systems Review of Systems: All systems reviewed & are unremarkable except as noted in HPI and below (HPI) Exam Narrative: Elderly frail Patient is comfortable, NAD HEENT: eyes are clear and none icteric LUNGS:CTA HEART: RR S1S2 ABD: BS+, Soft and nontender Lower extremities: no edema SKIN: nonjaundiced Neuro: grossly intact. Objective Data Vital Signs Vital Signs: Vital Signs - 24 hr 08/28/24 16:00 08/28/24 17:30 08/28/24 20:00 Temperature 36.8 C 36.5 C Pulse Rate 57 L 76 Respiratory Rate 16 18 Blood Pressure 103/67 114/64 Pulse Oximetry 97 100 Oxygen Delivery Room Air Fraction of Inspired Oxygen 08/28/24 21:56 08/29/24 08:00 08/29/24 14:00 Temperature 36.9 C 36.9 C Pulse Rate 63 63 60 Respiratory Rate 16 16 16 Blood Pressure 108/64 105/64 Pulse Oximetry 97 97 100 Oxygen Delivery Room Air Fraction of Inspired Oxygen 21 Intake/Output Intake/Output: Intake & Output 08/26/24 08/27/24 08/28/24 08/29/24 23:59 23:59 23:59 23:59 Intake Total 1740 1989 2620 480 Output Total 1250 1725 500 Balance 865 887 4746 480 Meds/Results Medications: Active Medications Generic Name Dose Route Start Last Admin Trade Name Freq PRN Reason Stop Dose Admin Acetaminophen 650 mg 08/23/24 05:45 08/25/24 00:13 Acetaminophen 325 Mg Tablet PO 650 mg Q4H PRN Administration Mild Pain (1-3) or Fever Clopidogrel Bisulfate 75 mg 08/25/24 09:00 08/29/24 11:33 Clopidogrel Bisulfate 75 Mg Tablet PO 75 mg QAM [facility] Administration Enoxaparin Sodium 40 mg 08/25/24 09:00 08/25/24 08:06 Enoxaparin 40 Mg/0.4 Ml Syringe SUB-Q 40 mg DAILY CORINNE Administration Ceftriaxone Sodium 2 gm in 100 mls @ 200 mls/hr 08/25/24 16:00 08/29/24 11:33 Rocephin 2 Gm/Ns 100 Ml IVPB 200 mls/hr QAM [facility] Administration Metronidazole 500 mg 08/25/24 16:00 08/29/24 14:44 Metronidazole 500 Mg Tablet PO 500 mg Q8HR [facility] Administration Miconazole Nitrate 1 applic 08/23/24 10:40 08/29/24 11:33 Miconazole Nitrate 2% Cream 30 Gm Tube TOPICAL 1 applic Q12HR [facility]INNE Administration Midodrine 5 mg 08/24/24 09:00 08/29/24 13:44 Midodrine Hcl 2.5 Mg Tablet PO 5 mg TID CORINNE Administration Morphine Sulfate 2 mg 08/24/24 16:12 08/28/24 05:06 Morphine Sulfate (*Crx) 2 Mg/Ml Inj IV PUSH 2 mg Q2H PRN Administration Pain Rated 7-10 Ondansetron HCl 4 mg 08/23/24 05:45 Ondansetron Inj 4 Mg/2 Ml Vial IV PUSH Q4H PRN Nausea Sodium Chloride 10 ml 08/23/24 14:00 08/29/24 15:45 Central Line Flush IV PUSH 10 ml Q8HR CORINNE Administration Sodium Chloride 10 ml 08/23/24 11:20 Central Line Flush IV PUSH PRN PRN with TPN bag changes Sodium Chloride 20 ml 08/23/24 11:20 Central Line Flush IV PUSH PRN PRN after blood draws Tamsulosin HCl 0.4 mg 08/23/24 09:00 08/29/24 11:33 Tamsulosin Hcl 0.4 Mg Capsule PO 0.4 mg QAM [facility]IN[facility] Administration Radiology Results: ITS Impressions Shoulder X-Ray 08/22/24 23:34 IMPRESSION: No acute osseous finding the left shoulder. Abdomen/Pelvis CT 08/23/24 05:20 Impression: 6.2 x 2.1 x 5.0 cm abscess along the inferior margin of the right hepatic lobe, possibly related to a dropped gallstone. Suspected extension into the inferior hepatic lobe with a 2.2 cm fluid attenuation area in the liver in this region, which is new from prior exam. 3.3 cm distal abdominal aortic aneurysm. Minimal pleural effusions with mild bibasilar pulmonary edema/atelectasis. 9 mm nonobstructing left renal stone. Chest X-Ray 08/23/24 11:22 IMPRESSION: 1. Right PICC line tip in the midsuperior vena cava. 2. Mild bibasilar opacities which could represent atelectasis, mild pulmonary edema or pneumonia. Abdomen Ultrasound 08/24/24 12:37 IMPRESSION: 1. 6.2 x 2.5 cm perihepatic abscess surrounding a likely dropped gallstone. 2. Small serpiginous fluid collections measuring up to 7 mm diameter within a 3.7 x 2.7 cm echogenic region within the immediately underlying liver. This consistent with a region of phlegmonous change progressing towards intrahepatic abscess. Abscess Drainage Ultrasound 08/24/24 16:50 IMPRESSION: 1. Successful ultrasound-guided or hepatic abscess drainage catheter placement. 2. 18 mL of opaque ruiz purulent appearing fluid was sent sent for aerobic, anaerobic, and fungal cultures. 3. The catheter will be managed by general surgery. Labs Labs: Laboratory Results - last 24 hr 08/29/24 05:32 WBC 7.3 RBC 2.89 L Hgb 9.8 L Hct 29.7 L MCV 102.8 H MCH 33.9 MCHC 33.0 RDW 14.8 H Plt Count 118 L MPV 11.0 H Sodium 133 L Potassium 3.6 Chloride 106 Carbon Dioxide 22 Anion Gap 5 BUN 14 Creatinine 0.65 L Estim Creat Clear Calc 61 Estimated GFR > 60 Glucose 94 Calcium 8.1 L Magnesium 2.2 Total Bilirubin 0.9 AST 29 ALT 43 Alkaline Phosphatase 122 Total Protein 6.0 L Albumin 2.9 L
[2024-08-29 22:51] VITALS: BP 122/57; PULSE 59; RESP 18; TEMP 36.8; O2SAT 96
[2024-08-30 06:00] VITALS: BP 112/61; PULSE 59; RESP 18; TEMP 36.4; O2SAT 100
[2024-08-30] MEDS: metroNIDAZOLE 500 MG TABLET PO (06:00)
[2024-08-30] MEDS: CENTRAL LINE FLUSH 10 ML IV PUSH (06:00)
[2024-08-30 06:19] LABS: Hemoglobin 9.9 g/dL (14.0-18.0); Mean Corpuscular Hemoglobin 33.9 pg (26-34); Mean Corpuscular Volume 102.7 fl (80-100); Mean Platelet Volume 10.4 fl (7.4-10.4); Platelet Count Result 161 k/mm3 (150-375); Red Blood Count 2.92 M/mm3 (4.6-6.20); White Blood Count 7.2 K/mm3 (4.5-10.0)
[2024-08-30 06:29] LABS: Alanine Aminotransferase 35 U/L (6-50); Alkaline Phosphatase 116 U/L (38-126); Anion Gap 7 mmol/L (4-12); Aspartate Amino Transferase 29 U/L (17-59); Bilirubin,Total 0.8 mg/dL (0.2-1.3); Blood Urea Nitrogen 12 mg/dL (9-20); Calcium 8.4 mg/dL (8.4-10.2); Carbon Dioxide 23 mmol/L (22-30); Chloride 106 mmol/L (98-107); Estimated CRCL calculation 58 ml/min; Estimated Glomerular Filt Rate > 60; Glucose 94 mg/dL (65-110); Magnesium 2.3 mg/dL (1.6-2.3); Potassium 3.7 mmol/L (3.4-5.0); Sodium 136 mmol/L (137-145); Total Protein 6.3 g/dL (6.3-8.2)
[2024-08-30] MEDS: MIDODRINE HCL 2.5 MG TABLET 5 MG PO ×2 (08:38→14:48)
[2024-08-30] MEDS: TAMSULOSIN HCL 0.4 MG CAPSULE PO (08:38)
[2024-08-30] MEDS: MICONAZOLE NITRATE 2% CREAM 30 GM TUBE 1 APPLIC TOPICAL (08:39)
[2024-08-30] MEDS: CLOPIDOGREL BISULFATE 75 MG TABLET PO (08:39)
[2024-08-30] MEDS: cefTRIAXone 2 GM/NS 100 ML 2 GM/100 ML BAG IVPB (08:39)
--- NOTE | 2024-08-30 11:19 | P.DS_ITS ---
DS: Admitting Diagnosis Discharge Date 08/30/24 Admitting Diagnosis Rigors DS: Discharge Diagnosis Discharge Diagnosis (1) Septic shock: Code(s): A41.9 - Sepsis, unspecified organism; R65.21 - Severe sepsis with septic shock Status: Acute Assessment and Plan: Patient with neutropenic fever with HoTN present on admission. Lactic acid was 4.1. CT A/P showing a 6.2 x 2.1 x 5.0 cm abscess along the inferior margin of the right hepatic lobe, possibly related to a dropped gallstone with suspected extension into the inferior hepatic lobe with a 2.2 cm fluid attenuation area in the liver in this region CT Ch/A/P 05/22/23 does show a dropped GS in the same area. [place] patient had a dropped GS from Jan 2023 surgery with inflammation causing intermittent right flank pain. This may have become secondarily infected due to immunosuppressive medications and recent teeth extraction. BCx positive EColi in both sets Vanco and Cefepime started in ED. Cefepime changed to Meropenem 08/24. General Surgery consulted. Weaned off Levophed today. Follow up on BCx results. Vanco stopped. Drain placement today. (2) Neutropenia with fever: Code(s): D70.9 - Neutropenia, unspecified; R50.81 - Fever presenting with conditions classified elsewhere Status: Acute Assessment and Plan: WBC 900 with ANC 738. Neutropenic precautions. Oncology consulted -- WBC better today at 16.7K. -- Filgrastim ordered but not given. Hgb 12 but dropped to 9.5. Has chronic anemia. Monitor HH. -- Iron studies consistent with anemia of chronic disease. B12/Folate levels okay. Plt count 146K but dropped to 90K now felt related to sepsis. Continue to monitor. As above. (3) Intra-abdominal abscess: Code(s): K65.1 - Peritoneal abscess Status: Acute Assessment and Plan: CT A/P showing a 6.2cm abscess along the inferior margin of the right hepatic lobe with extension into the inferior hepatic lobe. Again noted is the dropped gallstone in this area. CT Ch/A/P 05/22/23 does show a dropped GS in this same area. [place] patient had a dropped GS from Jan 2023 GB surgery with inflammation causing intermittent right flank pain. This may have become secondarily infected due to immunosuppressive medications and recent teeth extraction. Drain placement planned As above. 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 He is being followed by Dr Leung. He was on Lonsurf but was having issues with anemia so recently changed to oral fruquintinib July 18. Request records. As above (5) Elevated LFTs: Code(s): R79.89 - Other specified abnormal findings of blood chemistry Status: Acute Assessment and Plan: LFTs elevated felt related to above. Follow for resolution. (6) Rash: Code(s): R21 - Rash and other nonspecific skin eruption Status: Acute Assessment and Plan: Appears to have fungal buttock rash. Continue anti-fungal. (7) Coronary artery disease: Code(s): I25.10 - Atherosclerotic heart disease of [place] coronary artery without angina pectoris Status: Acute Assessment and Plan: LHC in July 2022 with high grade stenosis to the LAD with EF 50-55%. Medical therapy was recommended but consider PCI that would be high risk. Home medications include: Plavix, metoprolol and crestor. Holding these home meds for now. (8) Abdominal aortic aneurysm: Code(s): I71.40 - Abdominal aortic aneurysm, without rupture, unspecified Status: Acute Assessment and Plan: CT in May 2022 showing AAA 3.[address] A/P here showing AAA at 3.3cm and stable. Defer to PCP for continued monitoring. Plan 84 y/o was found to have peritoneal abscess was seen by general surgery service and IR placed percutaneous drain, both blood and abscess are growing E coli and being treated with ceftiaoxane and Flagyl, patient clinical symptoms are improving, and surgery has signed off, will discuss with clinical pharmacist for duration of IV abx and switching over to Oral, will repeat blood and abscess culture, if the infection is clearing, still waiting for the results of repeat blood culture, will monitor and further recommendation to follow. patient remains clinically stable, patient's son his are present and gave updates. Code status - full DVT prophylaxis - SCDs DS: Summary Hospital Course Hospital Course: 84 y/o was found to have peritoneal abscess was seen by general surgery service and IR placed percutaneous drain, both blood and abscess are growing E coli and being treated with ceftiaoxane and Flagyl, patient clinical symptoms are improving, and surgery has signed off, will discuss with clinical pharmacist for duration of IV abx and switching over to Oral, will repeat blood and abscess culture, if the infection is clearing, still waiting for the results of repeat blood culture, will monitor and further recommendation to follow. patient remains clinically stable, patient's son his are present and gave updates. today will discharge home today Time Spent with Patient Time attestation: Total time spent providing and/or coordinating discharge services: Exam Narrative: Elderly frail Patient is comfortable, NAD HEENT: eyes are clear and none icteric LUNGS:CTA HEART: RR S1S2 ABD: BS+, Soft and nontender Lower extremities: no edema SKIN: nonjaundiced Neuro: grossly intact. DS: Data Data Completed and Pending Labs on day of discharge: Labs from last 24 hours 08/30/24 06:04 WBC 7.2 RBC 2.92 L Hgb 9.9 L Hct 30.0 L MCV 102.7 H MCH 33.9 MCHC 33.0 RDW 15.0 H Plt Count 161 MPV 10.4 Sodium 136 L Potassium 3.7 Chloride 106 Carbon Dioxide 23 Anion Gap 7 BUN 12 Creatinine 0.67 L Estim Creat Clear Calc 58 Estimated GFR > 60 Glucose 94 Calcium 8.4 Magnesium 2.3 Total Bilirubin 0.8 AST 29 ALT 35 Alkaline Phosphatase 116 Total Protein 6.3 Albumin 3.0 L Preliminary micro results at discharge 08/28/24 17:38 Anaerobic Culture - Preliminary Abscess Aerobic Culture - Preliminary 08/27/24 10:09 Blood Culture - Preliminary Blood 08/27/24 10:07 Blood Culture - Preliminary Blood 08/24/24 16:40 Fungal Culture - Preliminary Abdominal Fluid Discharge Plan Discharge Attending physician on discharge: Bessy Trujillo Consulting providers: Ernesto Graham; Rell Fischer; Rachid Stevenson; Jorge Nobles; Tessa Rojas; Yaya Hoffmann; Lizbeth Louise; Walter Thomas; Adal Arvizu; Titi Cadet Discharging Clinician: John Alvarado Patient Disposition: Home with Home Health Service Activity: as tolerated Diet: heart healthy Discharge Instructions: Okay to discharge from surgical standpoint Recommend 10 more days antibiotics on discharge Drain care * Empty and record drain output daily * Okay to remove bandage every other day, sponge bathe around drain site with gentle soap and water, reapply 4 x 4 gauze and tape * Call office for increasing redness, pain round drain, or increased drainage around the drain exit site * Follow-up Dr. Graham office next week to plan surgery * * Patient to follow discharge care instruction his surgeon and follow up as scheduled, patient to follow up with his primary care provider as soon possible, patient's son is instructed if any symptoms worsen to go to nearest ER. * Per Care Coordination: [facility] agency to call to schedule initial visit ([phone]) by Thursday by 09/03/24. RN please fax discharge instructions to [phone]* Patient Instructions: Antibiotic Form Patient Language: Chinese Stand Alone Forms: General Discharge Information Follow-up/Referrals: Rell Fischer MD [Physician] - Kandy Rodriguez MD [Primary Care Provider] - Ernesto Graham DO [Physician] - 1 Week Discharge Medications: New midodrine 2.5 mg Tablet 5 mg PO TID Qty: 180 0RF amoxicillin-pot clavulanate 875-125 mg tablet 1 tablet PO Q8H Qty: 8 0RF Continued rosuvastatin 20 mg tablet 20 mg PO DAILY clopidogrel 75 mg tablet 75 mg PO DAILY Patient Comments: ON HOLD LAST DOSE 09/01/24 metoprolol succinate 50 mg tablet extended release 24 hr 50 mg PO DAILY Fruzaqla 5 mg capsule 5 mg PO .COMPLEX Patient Comments: ON HOLD LAST DOSE July Rx Instructions: 5 mg orally; See External Prescription details tramadol 50 mg tablet 50 mg PO Q6H PRN (Reason: pain) Qty: 20 0RF tamsulosin 0.4 mg capsule See Rx Instructions .ROUTE .COMPLEX Qty: 90 0RF Dose Instruction: TAKE 1 CAPSULE BY MOUTH EVERY MORNING Rx Instructions: TAKE 1 CAPSULE BY MOUTH EVERY MORNING triamcinolone acetonide 0.1 % cream 1 applic topical BID Qty: 80 1RF Date of admission: 08/23/24 08:42 Primary Care Provider: Kandy Rodriguez Admitting Provider: Bessy Trujillo Attending physician on admission: John Alvarado Condition: Stable
[2024-08-30] MEDS: AMOXICILLIN/CLAVULANATE K 875-125 MG TAB 1 TABLET PO (14:48)
== END 2024-08-30 15:30 | disposition home health service (06) | DRG 871 ==
LOC: ANHED 08-23 04:15 → ANHICU 08-23 06:18 → ANHIMU 08-25 12:35 → ANH3MED 08-29 11:54 → ANHIMU 08-31 16:38
PROVIDERS: Internal Medicine; Internal Medicine Hematology & Oncology; Admitting Provider Internal Medicine; Emergency Provider Student in an Organized Health Care Education/Training Program; PCP Family Medicine; Visit Provider Family Medicine
DX: A41.51 Sepsis due to Escherichia coli [E. coli] (principal); D61.810 Antineoplastic chemotherapy induced pancytopenia; K65.1 Peritoneal abscess; R65.21 Severe sepsis with septic shock; K91.86 Retained cholelithiasis following cholecystectomy; C18.0 Malignant neoplasm of cecum; C18.2 Malignant neoplasm of ascending colon; I25.10 Atherosclerotic heart disease of native coronary artery without angina pectoris; I71.43 Infrarenal abdominal aortic aneurysm, without rupture; K57.30 Diverticulosis of large intestine without perforation or abscess without bleeding; K59.09 Other constipation; N20.0 Calculus of kidney; N35.919 Unspecified urethral stricture, male, unspecified site; T45.1X5A Adverse effect of antineoplastic and immunosuppressive drugs, initial encounter; R50.81 Fever presenting with conditions classified elsewhere; R21 Rash and other nonspecific skin eruption; R43.2 Parageusia; Z20.822 Contact with and (suspected) exposure to COVID-19; Z79.02 Long term (current) use of antithrombotics/antiplatelets; Z85.038 Personal history of other malignant neoplasm of large intestine; Z87.891 Personal history of nicotine dependence
CPT/HCPCS: 10160; 36415; 36569; 71045; 73030; 74177; 76705; 80053; 81001; 82550; 82565; 82607; 82728; 82746; 83540; 83550; 83605; 83690; 83735; 84484; 85025; 85027; 85055; 85610; 85730; 86140; 87040; 87070; 87075; 87102; 87186; 87205; 87206; 87637; 87641; 93005; 96361; 96365; 96366; 96367; 96375; 97161; 97165; 99285; A9270; C1729; C1751; G0378; J0613; J0692; J0696; J1650; J2185; J2270; J3370; J3475; J3480; J7030; P9047; Q9967

== ENCOUNTER 2024-09-06 02:02 | Day surgery (SDC) | payer MEDICARE, SELFPAY ==
--- NOTE | 2024-09-05 09:07 | PC.NURSE ---
Report to the Outpatient Waiting Room, entrance under the green pavilion located off [facility], at time 9:30 AM on date _09/06/24 . Planned Procedure Time: __11:30 AM .? Time changes happen often and if your time is changed the preop area will call you the afternoon before. - You and your visitor will be asked to self-screen and do not enter if you have any COVID symptoms. Please call surgeon if you need to reschedule. - A mask is optional within the hospital at this time. Patients may have clear liquids (water, carbonated beverages, clear teas, apple juice) until 3 hours prior to surgery ( 8:30 AM) with a maximum of 20 ounces. - No food from midnight until time of surgery and no smoking, or chewing tobacco (or any form of nicotine). No chewing gum, candy or mints. Take only the following medications with a SIP of water on the morning of surgery: _METOPROLOL DO NOT STOP ANY OF YOUR OTHER PRESCRIPTION MEDICATIONS PRIOR TO SURGERY EXCEPT THE FOLLOWING Hold all vitamins and supplements for 3 days per anesthesiologist. Medications to discontinue per physician STATES LAST DOSE PLAVIX 09/01/24 Date to take last dose Please no make-up, nail vietnamese, hairspray, perfume, deodorant, or body powder the day of surgery.? No jewelry (including any body piercings) or valuables the day of surgery, leave them at home.? Please take a shower or bath the night before, or the morning of, surgery with an antibacterial soap.? Wear comfortable, loose fitting clothing.? Children are encouraged to wear pajamas. - Jewelry must be removed prior to entering the operating room.? Rings and piercings that are not removed may be cut off. - The hospital will not accept responsibility for valuables.? - Please leave all valuables, including medications, at home the day of surgery. If you are going home after surgery, a licensed chain saw driver must drive you home.? - NO public transportation without another adult if you receive anesthesia. - We recommend that an adult stay with you for 24 hours following discharge. - We also recommend that you do not drive, make important decision, drink alcoholic beverages, or take any drugs that were not prescribed by your health care provider for at least 24 hours after your discharge time. For Pediatric surgeries, we recommend two adults accompany the child home. Follow any additional instructions given to you from your surgeon. VERBAL AND WRITTEN instructions given to _PATIENT AND DAUGHTER IN LAW JANAYALA and asked if any additional questions and then verbalized understanding. Patient advised to call surgeon office or pre surgery nurse liaison [phone] if any additional questions.
[2024-09-05 09:11] VITALS: BMI 23.0
[2024-09-05 10:05] VITALS: BP 107/73; PULSE 66; RESP 18; TEMP 36.8; O2SAT 99
[2024-09-06] VITALS (18 sets, daily range): BP systolic 111–139; BP diastolic 65–80; PULSE 62–76; RESP 12–20; TEMP 35.6–36.9; O2SAT 95–100; BMI 22.6
--- OUTSIDE RECORDS SUMMARY | 2024-09-06 02:05 | XMS_ITS | Clinical Summary ---
Author Organization [facility] Address [address] [place] [address] Care Team Providers Care Senior Courtroom Clerk Name Role Phone XochitlDuke diaz DO Unavailable [phone] Julian Quevedo MD Primary Care Provider Allergies [...] 21 capsule 3 07/09/19 25 025 Active Additional Information Patient not taking.Reported on 09/01/2024 amoxicillin (AMOXIL) 875 mg tablet Take 1 tablet (875 mg total) by mouth every 12 (twelve) hours 07/28/19 25 Active fruquintinib (FRUZAQLA) 5 mg capsuleIndicat ions:Malignant neoplasm of ascending colon (HCC) Take 1 capsule (5 mg total) by mouth daily Swallow whole. Take for 21 days followed by 7 days off treatment for each 28-day cycle. 21 capsule 3 08/10/19 25 025 Active Additional Information Patient not taking.Reported on 09/01/[address] (VOLTAREN) 50 mg EC tablet Take 1 tablet (50 mg total) by mouth 2 (two) times a day for 14 days 28 tablet 08/18/19 25 Active traMADoL (ULTRAM) 50 mg tablet Take 1 tablet (50 mg total) by mouth every 6 (six) hours as needed for pain 60 tablet 08/18/19 25 Active rosuvastatin (CRESTOR) 20 mg tablet TAKE 1 TABLET(20 MG) BY MOUTH DAILY 90 tablet 2 08/23/19 25 Active amoxicillin-cl avulanate (AUGMENTIN) 875-125 mg per tablet Take 1 tablet by mouth every 8 (eight) hours 08/31/19 25 Active midodrine (PROAMATINE) 2.5 mg tablet 09/01/19 25 Active rosuvastatin (CRESTOR) 20 mg tablet TAKE 1 TABLET(20 MG) BY MOUTH DAILY 90 tablet 05/25/19 25 025 Discontinued Active Problems Problem Noted Date Diagnosed Date 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 Angina pectoris, unspecified 01/06/2023 Coronary artery disease invo lving [place] coronary artery of [place] heart without angina pectoris 08/12/2022 Malignant neoplasm of ascending colon 07/04/2022 Cancer Staging:Clinical stage from 07/04/2022:Stage IIIB(cT3, cN1c, cM0) - Signed by Duke Leung DO on 07/04/2022 Encounters Date Type Department Care Team Description 09/02/2024 Telephone [facility] [address] [place] [address] [address] [place] [address] Duke Leung DO 09/01/2024 12:45 PM CDT Office Visit [facility] [address] [place] [address] [address] [place] [address] Duke Leung, Malignant neoplasm of ascending colon (HCC) (Primary Dx) 08/31/2024 10:00 AM CDT Lab [facility] at [address] [address] Malignant neoplasm of ascending colon (HCC) 08/29/2024 Documentation [facility] [address] [place] [address] [address] [place] [address] Duke Leung, 08/09/2024 Orders Only [facility] [address] [place] [address] [address] [place] [address] Doris Alejo, RN Malignant neoplasm of ascending colon (HCC) (Primary Dx) 08/05/2024 Orders Only [facility] [address] [place] [address] [address] [place] [address] Duke Leung, 07/28/2024 2:00 PM CDT Office Visit [facility] [address] [place] [address] [address] [place] [address] Duke Leung, Malignant neoplasm of ascending colon (HCC) (Primary Dx) 07/28/2024 1:30 PM CDT Lab [address] [address] Malignant neoplasm of ascending colon (HCC); Antineoplastic chemotherapy induced anemia 07/08/2024 Orders Only [facility] [address] [place] [address] [address] [place] [address] Duke Leung, 07/08/2024 Documentation [facility] [address] [place] [address] [address] [place] [address] Duke Leung, 06/30/2024 9:30 AM CDT Lab [address] [address] Malignant neoplasm of ascending colon (HCC); Antineoplastic chemotherapy induced anemia 06/30/2024 8:00 AM CDT Office Visit [facility] [address] [place] [address] Yosi Berrios MD Coronary artery disease involving [place] coronary artery of [place] heart without angina pectoris (Primary Dx) 06/30/2024 Results Follow-Up [facility] [address] [place] [address] [address] [place] [address] Bianka Garcia RN Comprehensive metabolic panel, CEA, CBC with auto differential, Additional followed-up results: 2 06/26/2024 Orders Only [facility] [address] [place] [address] [address] [place] [address] Duke Leung, from Last 3 Months Immunizations Immunization Administration Dates Next Due Influenza, Quadrivalent, Hig h Dose, Preservative Free, Intrr 12/28/2021 Surgical History Surgery Date Site/Laterality Comments COLON SURGERY 04/23/2022 - 05/20/2022 COLONOSCOPY 04/23/2022 - 05/20/2022 CHOLECYSTECTOMY CARDIAC CATHETERIZATION US GUIDED BIOPSY ABDOMEN RETROPERITONEAL 07/15/2023 N/A IMAGE GUIDED DRAINAGE VISCER AL FLUID COLLECTION 08/24/2024 Medical History Medical History Date Comments Colon [...] Average Number of Drinks Not on file 04/24/2 024 Q3: How often do you have [...] on file Legal Sex Male 1:12 AM MASTIC MAN Gender Identity Not on file Sexual Orientation Not on file Occupation Industry Job Start Date Job End Date Retired Not on file Not on file Not on file Obstetrics History Last Filed Vital Signs Vital Sign Reading Time Taken Comments Blood Pressure 110/61 09/01/2024 1:06 PM CDT Pulse 66 09/01/2024 1:06 PM CDT Temperature 36.7 C (98 F) 09/01/2024 1:06 PM CDT Respiratory Rate 18 09/01/2024 1:06 PM CDT Oxygen Saturation 99% 09/01/2024 1:06 PM CDT Inhaled Oxygen Concentration - - Weight 69.6 kg (153 lb 7 oz) 09/01/2024 1:06 PM CDT with shoes Height 173 cm (5' 8.11) 07/28/2024 2:14 PM CDT Body Mass Index 23.26 07/28/2024 2:14 PM CDT Plan of Treatment Health Maintenance Due Date Last Done Comments Depression Screening 1940 DTaP/Tdap/Td Vaccine (1 - Tdap) 07/17/1950 Hepatitis B Screening 07/17/1957 Pneumococcal vaccine 65+ (1 of 2 - PCV) 07/17/1958 Zoster Vaccine (1 of 2) 07/17/1958 Well Visit 65+ 07/17/2004 Covid-19 Vaccine ( - 2023-2 5 season) 2023 01/07/2022, 02/07/2021, 06/05/2020, Additional history exists Fall Risk Assessment 07/14/2024 07/15/2023 Influenza Vaccine (Season Ended) 2024 12/29/19 22 Procedures Procedure Name Priority Date/Time Associated Diagnosis Comments EGFR Routine 08/31/2024 10:04 AM CDT Malignant neoplasm of ascending colon (HCC) DIFFERENTIAL AUTO Routine 08/31/2024 10: 04 AM CDT Malignant neoplasm of ascending colon (HCC) CBC WITH AUTO DIFFERENTIAL Routine 08/31/2024 10:04 AM CDT Malignant neoplasm of ascending colon (HCC) COMPREHENSIVE METABOLIC PANEL Routine 08/31/2024 10:04 AM CDT Malignant neoplasm of ascending colon (HCC) CEA Routine 08/31/2024 10:04 AM CDT Malignant neoplasm of ascending colon (HCC) EGFR Routine 07/28/2024 1:30 PM CDT Malignant [...] from Last 3 Months Results * eGFR (08/31/2024 10:04 AM CDT) eGFR 84 >=60 mL/min/1. 73 m2 Comment: Interpretive Data [...] was last reviewed 2021. Testing performed by: [address] [address] Blood 08/31/2024 10:0 4 AM CDT 08/31/2024 10:05 AM CDT us Duke Leung DO LAB BLOOD ORDERABLES Final R esult [facility] [address] [facility] [place] [address] * (ABNORMAL) Differential, auto (08/31/2024 10:04 AM CDT) Neutrophil abs 4.74 1.50 - 6.50 K/cumm Comment:Testing performed by : [address] [address] Imm gran abs 0.30(H) 0.00 - 0.10 K/cumm [facility] Comment:Testing performed by : [address] [address] Lymphocyte abs 1.43 0.80 - 3.30 K/cumm [facility] Comment:Testing performed by : [address] [address] Monocyte abs 0.59 0.20 - 0.80 K/cumm [facility] Comment:Testing performed by : [address] [address] Eosinophil abs 0.09 0.00 - 0.50 K/cumm [facility] Comment:Testing performed by : [address], [place]., [address] Basophil abs 0.03 0.00 - 0.10 K/cumm [facility] Comment:Testing performed by : [address] [address] Neutrophil pct 66.0 % [facility] Comment: Interpretive Data Percent cell count reference ranges are not reported, since discordance with absolute values may lead to misinterpretation of CBC data. Current Interpretive Data was last revised on 2017. Testing performed by: [address] [address] Imm gran pct 4.2 % [facility] Comment: Interpretive Data Percent cell count reference ranges are not reported, since discordance with absolute values may lead to misinterpretation of CBC data. Current Interpretive Data was last revised on 2017. Testing performed by: [address] [address] Lymphocyte pct 19.9 % [facility] Comment: Interpretive Data Percent cell count reference ranges are not reported, since discordance with absolute values may lead to misinterpretation of CBC data. Current Interpretive Data was last revised on 2017. Testing performed by: [address] [address] Monocyte pct 8.2 % [facility] Comment: Interpretive Data Percent cell count reference ranges are not reported, since discordance with absolute values may lead to misinterpretation of CBC data. Current Interpretive Data was last revised on 2017. Testing performed by: [address] [address] Eosinophil pct 1.3 % [facility] Comment: Interpretive Data Percent cell count reference ranges are not reported, since discordance with absolute values may lead to misinterpretation of CBC data. Current Interpretive Data was last revised on 2017. Testing performed by: [address] [address] Basophil pct 0.4 % [facility] Comment: Interpretive Data Percent cell count reference ranges are not reported, since discordance with absolute values may lead to misinterpretation of CBC data. Current Interpretive Data was last revised on 2017. Testing performed by: [address] [address] Blood 08/31/2024 10:0 4 AM CDT 08/31/2024 10:05 AM CDT us Duke Leung DO LAB BLOOD ORDERABLES Final R esult [facility] [address] [facility] [place] [address] * (ABNORMAL) CBC with auto differential (08/31/2024 10:04 AM CDT) WBC 7.18 3.80 - 9.90 K/cumm Comment:Testing performed by : [address] [address] Hgb 10.8(L) 13.0 - 17.5 g/dL [facility] Comment:Testing performed by : [address] [address] Hct 31.8(L) 38.9 - 50.3 % [facility] Comment:Testing performed by : [address] [address] Plt 221 150 - 400 K/cumm [facility] Comment:Testing performed by : [address] [address] MPV 10.1 9.1 - 12.3 fL [facility] Comment:Testing performed by : [address] [address] RBC 3.24(L) 4.30 - 5.80 M/cumm [facility] MATOS Comment:Testing performed by : [address] [address] MCV 98.1(H) 81.3 - 96.4 fL [facility] Comment:Testing performed by : [address] [address] MCH 33.3 27.1 - 33.3 pg [facility] MATOS Comment:Testing performed by : [address] [address] MCHC 34.0 32.3 - 35.7 g/dL [facility] MATOS Comment:Testing performed by : [address] [address] RDW CV 14.9 11.1 - 14.9 % [facility] Comment:Testing performed by : [address] [address] RDW SD 53.6(H) 35.7 - 48.1 fL [facility] Comment:Testing performed by : [address] [address] NRBC abs 0.00 0.00 - 0.01 K/cumm [facility] Comment:Testing performed by : [address] [address] ANC Prelim 4.74 1.50 - 6.50 K/cumm [facility] Comment: Interpretive Data The rapid ANC is a preliminary automated count and may vary from the final ANC (Neut Abs) reported in the WBC differential that follows. Current interpretive data was last revised 2024. Testing performed by: [address] [address] Morphologic Screen Results confirmed by manual morphology review. [facility] Comment:Testing performed by : [address] [address] Blood 08/31/2024 10:0 4 AM CDT 08/31/2024 10:05 AM CDT us Duke Leung DO LAB BLOOD ORDERABLES Edited Result - Final [facility] [address] [facility] [place] [address] * (ABNORMAL) CEA (08/31/2024 10:04 AM CDT) Pathologist [facility] CEA 28.0(H) <=5.0 ng/mL Comment: Interpretive Data: Reference Range: Non-Smokers: 0.0 5.0 ng/mL Smokers: 0.0 6.5 ng/mL The Oswaldo CEA assay procedure was used. Results from different manufacturers or methods may not be comparable. Serial testing should be performed using the same method. Current interpretive data was last revised 2022. Testing performed by: [address] [address] Blood 08/31/2024 10:0 4 AM CDT 08/31/2024 11:53 AM CDT us Duke Leung DO LAB BLOOD ORDERABLES Final R esult [facility] [place] [address] * (ABNORMAL) Comprehensive metabolic panel (08/31/2024 10:04 AM CDT) [facility] Sodium 135 135 - 145 mmol/L Comment:Testing performed by : [address] [address] Potassium, pl 4.1 3.3 - 4.9 mmol/L [facility] Comment:Testing performed by : [address] [address] Chloride 102 97 - 110 mmol/L [facility] Comment:Testing performed by : [address] [address] CO2 22 22 - 32 mmol/L [facility] Comment:Testing performed by : [address] [address] Anion gap 11 2 - 15 mmol/L [facility] Comment:Testing performed by : [address] [address] BUN 16 6 - 25 mg/dL [facility] Comment:Testing performed by : [address] [address] Creatinine 0.90 0.80 - 1.30 mg/dL [facility] Comment:Testing performed by : [address] [address] Glucose 111 70 - 199 mg/dL [facility] [...] was last revised 2022. Testing performed by: [address] [address] Calcium 8.9 8.5 - 10.3 mg/dL [facility] Comment:Testing performed by : [address] [address] Bilirubin, total 0.7 0.1 - 1.2 mg/dL [facility] Comment:Testing performed by : [address] [address] Protein, pl 7.1 6.5 - 8.5 g/dL [facility] Comment:Testing performed by : [address] [address] Albumin 3.5 3.5 - 5.0 g/dL [facility] Comment:Testing performed by : [address] [address] Alk phos 132(H) 40 - 130 Units/L [facility] Comment:Testing performed by : [address] [address] ALT 26 7 - 55 Units/L [facility] Comment:Testing performed by : [address] [address] AST 24 10 - 50 Units/L [facility] Comment:Testing performed by : [address] [address] Blood 08/31/2024 10:0 4 AM CDT 08/31/2024 10:05 AM CDT Duke Leung DO LAB BLOOD ORDERABLES Final R esult Performing Organization Address [facility] Co de Phone Number [facility] [place] [place] [address] * eGFR (07/28/2024 1:30 PM CDT) eGFR [...] was last reviewed 2021. Testing performed by: [address] [address] Blood 07/28/2024 1:30 PM CDT 07/28/2024 1:31 PM CDT Duke Goveanti DO LAB BLOOD ORDERABLES Final R esult Performing Organization Address City/[facility] Co de Phone Number [facility] [address] [facility] [place] [place] [address] * Differential, auto (07/28/2024 1:30 PM CDT) Neutrophil abs 1.88 1.50 - 6.50 K/cumm Comment:Testing performed by : [address] [address] Imm gran abs 0.02 0.00 - 0.10 K/cumm [facility] Comment:Testing performed by : [address] [address] Lymphocyte abs 2.26 0.80 - 3.30 K/cumm [facility] Comment:Testing performed by : [address] [address] Monocyte abs 0.46 0.20 - 0.80 K/cumm [facility] Comment:Testing performed by : [address], [place]., [address] Eosinophil abs 0.02 0.00 - 0.50 K/cumm [facility] Comment:Testing performed by : [address] [address] Basophil abs 0.03 0.00 - 0.10 K/cumm [facility] Comment:Testing performed by : [address] [address] Neutrophil pct 40.3 % [facility] Comment: Interpretive Data Percent cell count reference ranges are not reported, since discordance with absolute values may lead to misinterpretation of CBC data. Current Interpretive Data was last revised on 2017. Testing performed by: [address] [address] Imm gran pct 0.4 % [facility] Comment: Interpretive Data Percent cell count reference ranges are not reported, since discordance with absolute values may lead to misinterpretation of CBC data. Current Interpretive Data was last revised on 2017. Testing performed by: [address] [address] Lymphocyte pct 48.4 % [facility] Comment: Interpretive Data Percent cell count reference ranges are not reported, since discordance with absolute values may lead to misinterpretation of CBC data. Current Interpretive Data was last revised on 2017. Testing performed by: [address] [address] Monocyte pct 9.9 % [facility] Comment: Interpretive Data Percent cell count reference ranges are not reported, since discordance with absolute values may lead to misinterpretation of CBC data. Current Interpretive Data was last revised on 2017. Testing performed by: [address] [address] Eosinophil pct 0.4 % [facility] Comment: Interpretive Data Percent cell count reference ranges are not reported, since discordance with absolute values may lead to misinterpretation of CBC data. Current Interpretive Data was last revised on 2017. Testing performed by: [address] [address] Basophil pct 0.6 % [facility] Comment: Interpretive Data Percent cell count reference ranges are not reported, since discordance with absolute values may lead to misinterpretation of CBC data. Current Interpretive Data was last revised on 2017. Testing performed by: [address] [address] Blood 07/28/2024 1:30 PM CDT 07/28/2024 1:31 PM CDT Duke Leung DO LAB BLOOD ORDERABLES Final R esult [facility] [place] [address] * (ABNORMAL) CBC with auto differential (07/28/2024 1:30 PM CDT) WBC 4.67 3.80 - 9.90 K/cumm Comment:Testing performed by : [address] [address] Hgb 12.0(L) 13.0 - 17.5 g/dL [facility] MAT[facility] Comment:Testing performed by : [address] [address] Hct 34.9(L) 38.9 - 50.3 % [facility] Comment:Testing performed by : [address] [address] Plt 129(L) 150 - 400 K/cumm [facility] Comment:Testing performed by : [address] [address] MPV 9.1 9.1 - 12.3 fL [facility] Comment:Testing performed by : [address] [address] RBC 3.44(L) 4.30 - 5.80 M/cumm [facility] Comment:Testing performed by : [address] [address] MCV 101.5(H) 81.3 - 96.4 fL [facility] Comment:Testing performed by : [address] [address] MCH 34.9(H) 27.1 - 33.3 pg [facility] Comment:Testing performed by : [address] [address] MCHC 34.4 32.3 - 35.7 g/dL [facility] Comment:Testing performed by : [address] [address] RDW CV 15.0(H) 11.1 - 14.9 % [facility] Comment:Testing performed by : [address] [address] RDW SD 56.1(H) 35.7 - 48.1 fL [facility] Comment:Testing performed by : [address] [address] NRBC abs 0.00 0.00 - 0.01 K/cumm [facility] Comment:Testing performed by : [address] [address] ANC Prelim 1.88 1.50 - 6.50 K/cumm [facility] Comment: Interpretive Data The rapid ANC is a preliminary automated count and may vary from the final ANC (Neut Abs) reported in the WBC differential that follows. Current interpretive data was last revised 2024. Testing performed by: [address] [address] Blood 07/28/2024 1:30 PM CDT 07/28/2024 1:31 PM CDT us Duke Leung DO LAB BLOOD ORDERABLES Final R esult [facility] [address] [facility] [place] [address] * (ABNORMAL) CEA (07/28/2024 1:30 PM CDT) Pathologist [facility] CEA 70.4(H) <=5.0 ng/mL Comment: Interpretive Data: Reference Range: Non-Smokers: 0.0 5.0 ng/mL Smokers: 0.0 6.5 ng/mL The Oswaldo CEA assay procedure was used. Results from different manufacturers or methods may not be comparable. Serial testing should be performed using the same method. Current interpretive data was last revised 2022. Testing performed by: [address] [address] Blood 07/28/2024 1:30 PM CDT 07/28/2024 3:59 PM CDT Duke Leung DO LAB BLOOD ORDERABLES Final R esult [facility] [address] Department [place] [address] * Comprehensive metabolic panel (07/28/2024 1:30 PM CDT) Pathologist [facility] Sodium 140 135 - 145 mmol/L Comment:Testing performed by : [address] [address] Potassium, pl 4.0 3.3 - 4.9 mmol/L [facility] Comment:Testing performed by : [address] [address] Chloride 108 97 - 110 mmol/L [facility] Comment:Testing performed by : [address] [address] CO2 24 22 - 32 mmol/L [facility] Comment:Testing performed by : [address] [address] Anion gap 8 2 - 15 mmol/L [facility] Comment:Testing performed by : [address] [address] BUN 16 6 - 25 mg/dL [facility] Comment:Testing performed by : [address] [address] Creatinine 0.80 0.80 - 1.30 mg/dL [facility] Comment:Testing performed by : [address] [address] Glucose 146 70 - 199 mg/dL [facility] Comment: Interpretive Data Fasting glucose >/= 126 [...] was last revised 2022. Testing performed by: [address] [address] Calcium 9.2 8.5 - 10.3 mg/dL [facility] Comment:Testing performed by : [address] [address] Bilirubin, total 0.7 0.1 - 1.2 mg/dL [facility] Comment:Testing performed by : [address] [address] Protein, pl 7.5 6.5 - 8.5 g/dL [facility] Comment:Testing performed by : [address] [address] Albumin 4.2 3.5 - 5.0 g/dL [facility] Comment:Testing performed by : [address] [address] Alk phos 104 40 - 130 Units/L [facility] Comment:Testing performed by : [address] [address] ALT 34 7 - 55 Units/L [facility] Comment:Testing performed by : [address] [address] AST 35 10 - 50 Units/L [facility] Comment:Testing performed by : [address] [address] Blood 07/28/2024 1:30 PM CDT 07/28/2024 1:31 PM CDT Duke Leung DO LAB BLOOD ORDERABLES Final R esult Performing Organization Address City/[facility]/ZIP Co de Phone Number M[facility] [address] [place] [address] * eGFR (06/30/2024 9:22 AM CDT) eGFR [...] was last reviewed 2021. Testing performed by: [facility], [address] [place] [address]., [address] Blood 06/30/2024 9:22 AM CDT 06/30/2024 9:24 AM CDT Duke Leung DO LAB BLOOD ORDERABLES Final R esult [facility] [place] [place] [address] * Differential, auto (06/30/2024 9:22 AM CDT) Neutrophil abs 1.90 1.50 - 6.50 K/cumm Comment:Testing performed by : [facility], [address] [place] [address], [place]., [address] Imm gran abs 0.01 0.00 - 0.10 K/cumm [facility] Comment:Testing performed by : [facility], [address] [place] [address], [place]., [address] Lymphocyte abs 1.31 0.80 - 3.30 K/cumm [facility] Comment:Testing performed by : [address], [place]., [address] Monocyte abs 0.29 0.20 - 0.80 K/cumm [facility] Comment:Testing performed by : [address], [place]., [address] Eosinophil abs 0.08 0.00 - 0.50 K/cumm [facility] Comment:Testing performed by : [address], [place]., [address] Basophil abs 0.03 0.00 - 0.10 K/cumm [facility] Comment:Testing performed by : [address] [address] Neutrophil pct 52.5 % [facility] Comment: Interpretive Data Percent cell count reference ranges are not reported, since discordance with absolute values may lead to misinterpretation of CBC data. Current Interpretive Data was last revised on 2017. Testing performed by: [address] [address] Imm gran pct 0.3 % [facility] Comment: Interpretive Data Percent cell count reference ranges are not reported, since discordance with absolute values may lead to misinterpretation of CBC data. Current Interpretive Data was last revised on 2017. Testing performed by: [address] [address] Lymphocyte pct 36.2 % [facility] Comment: Interpretive Data Percent cell count reference ranges are not reported, since discordance with absolute values may lead to misinterpretation of CBC data. Current Interpretive Data was last revised on 2017. Testing performed by: [address] [address] Monocyte pct 8.0 % [facility] Comment: Interpretive Data Percent cell count reference ranges are not reported, since discordance with absolute values may lead to misinterpretation of CBC data. Current Interpretive Data was last revised on 2017. Testing performed by: [address] [address] Eosinophil pct 2.2 % MADHAVI Comment: Interpretive Data Percent cell count reference ranges are not reported, since discordance with absolute values may lead to misinterpretation of CBC data. Current Interpretive Data was last revised on 2017. Testing performed by: [address] [address] Basophil pct 0.8 % MADHAVI Comment: Interpretive Data Percent cell count reference ranges are not reported, since discordance with absolute values may lead to misinterpretation of CBC data. Current Interpretive Data was last revised on 2017. Testing performed by: [address] [address] Blood 06/30/2024 9:22 AM CDT 06/30/2024 9:24 AM CDT us Duke Leung DO LAB BLOOD ORDERABLES Final R esult [facility] [address] [facility] Department [place] [address] * (ABNORMAL) CBC with auto differential (06/30/2024 9:22 AM CDT) WBC 3.62(L) 3.80 - 9.90 K/cumm Comment:Testing performed by : [address] [address] Hgb 10.7(L) 13.0 - 17.5 g/dL MADHAVI Comment:Testing performed by : [address] [address] Hct 31.9(L) 38.9 - 50.3 % MADHAVI Comment:Testing performed by : [address] [address] Plt 153 150 - 400 K/cumm MADHAVI Comment:Testing performed by : [address] [address] MPV 9.2 9.1 - 12.3 fL MADHAVI Comment:Testing performed by : [address], [address] RBC 3.07(L) 4.30 - 5.80 M/cumm MADHAVI Comment:Testing performed by : [address], [address] MCV 103.9(H) 81.3 - 96.4 fL MADHAVI Comment:Testing performed by : [address], [address] MCH 34.9(H) 27.1 - 33.3 pg MADHAVI Comment:Testing performed by : [address], [address] MCHC 33.5 32.3 - 35.7 g/dL MADHAVI Comment:Testing performed by : [address], [address] RDW CV 16.2(H) 11.1 - 14.9 % MADHAVI Comment:Testing performed by : [address], [address] RDW SD 62.1(H) 35.7 - 48.1 fL MADHAVI Comment:Testing performed by : [address], [address] NRBC abs 0.00 0.00 - 0.01 K/cumm MADHAVI Comment:Testing performed by : [address], [address] ANC Prelim 1.90 1.50 - 6.50 K/cumm MADHAVI Comment: Interpretive Data The rapid ANC is a preliminary automated count and may vary from the final ANC (Neut Abs) reported in the WBC differential that follows. Current interpretive data was last revised 2024. Testing performed by: [address], [address] Blood 06/30/2024 9:22 AM CDT 06/30/2024 9:24 AM CDT Duke Leung DO LAB BLOOD ORDERABLES Final R esult Performing Organization Address [facility] de Phone Number MADHAVI [address] [facility] [place] [address] * (ABNORMAL) CEA (06/30/2024 9:22 AM CDT) CEA 98.3(H) <=5.0 ng/mL Comment: Interpretive Data: Reference Range: Non-Smokers: 0.0 5.0 ng/mL Smokers: 0.0 6.5 ng/mL The Oswaldo CEA assay procedure was used. Results from different manufacturers or methods may not be comparable. Serial testing should be performed using the same method. Current interpretive data was last revised 2022. Testing performed by: [address] [address] Blood 06/30/2024 9:22 AM CDT 06/30/2024 11:46 AM CDT Duke Leung LAB BLOOD ORDERABLES Final R esult Performing Organization Address [facility] de Phone Number MADHAVI [address] [facility] [place] [address] * Comprehensive metabolic panel (06/30/2024 9:22 AM CDT) Pathologist [facility] Sodium 140 135 - 145 mmol/L Comment:Testing performed by : [address] [address] Potassium, pl 4.1 3.3 - 4.9 mmol/L MADHAVI Comment:Testing performed by : [address] [address] Chloride 106 97 - 110 mmol/L MADHAVI Comment:Testing performed by : [address] [address] CO2 25 22 - 32 mmol/L MADHAVI Comment:Testing performed by : [address] [address] Anion gap 9 2 - 15 mmol/L MADHAVI Comment:Testing performed by : [address] [address] BUN 15 6 - 25 mg/dL MADHAVI Comment:Testing performed by : [address] [address] Creatinine 0.80 0.80 - 1.30 mg/dL MADHAVI Comment:Testing performed by : [address] [address] Glucose 111 70 - 199 mg/dL MADHAVI [...] was last revised 2022. Testing performed by: [address] [address] Calcium 9.3 8.5 - 10.3 mg/dL MADHAVI Comment:Testing performed by : [address] [address] Bilirubin, total 1.0 0.1 - 1.2 mg/dL MADHAVI Comment:Testing performed by : [address] [address] Protein, pl 7.1 6.5 - 8.5 g/dL MADHAVI Comment:Testing performed by : [address] [address] Albumin 4.2 3.5 - 5.0 g/dL [facility] Comment:Testing performed by : [address] [address] Alk phos 81 40 - 130 Units/L MADHAVI Comment:Testing performed by : [address] [address] ALT 34 7 - 55 Units/L MADHAVI Comment:Testing performed by : [address] [address] AST 35 10 - 50 Units/L MADHAVI MATOS Comment:Testing performed by : [facility], [address] [place] [address], [place]., [address] Blood 06/30/2024 9:22 AM CDT 06/30/2024 9:24 AM CDT Duke Leung DO LAB BLOOD ORDERABLES Final R esult MADHAVI MATOS [address] [facility] [place] [address] from Last 3 Months Insurance MEDICARE [facility] MEDICARE SUPPLEMENT MEDICARE BLUE CROSS MEDICARE SUPPLEMENT [facility] MEDICARE Advance Directives For more information, please contact: [phone] * Full Code (Latest Code Status on File) Date Activated Date Inactivated Comments 07/15/2023 10:51 AM 07/16/2023 5:19 AM Care Teams Senior Courtroom Clerk Relationship Specialty Start Date End Date Julian Quevedo MD [address] [place] [address] PCP - General Family Medicine 06/30/24 Duke Leung DO [address] [facility], [address] [place] [address] Medical Oncologist/Brim Curler Hematology and Oncology 01/27/23
--- OUTSIDE RECORDS SUMMARY | 2024-09-06 02:05 | XMS_ITS ---
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
--- OUTSIDE RECORDS SUMMARY | 2024-09-06 02:05 | XMS_ITS | Continuity of Care Document ---
Author Organization [facility] Address [address] [facility] [place] [address] Phone Care Team Providers Care Foreman/[employer] Name Role Phone Gabino Laughlin MD Unavailable [...] Diagnoses Date Provider Providers Copied on Encounter [facility], [place], [address] [place], [id number], [place] tel:[phone] [facility] [place] No Information [address] Truman Lloyd. [address] [place], [place], [id number] , [place]. tel:[phone] Referring Provider: Gabino Laughlin, [address], [place], [id number]. tel:[phone] OFFICE/OUTPA TIENT VISIT, EST [facility], [place], [address] [place], [place], [address], [place] tel:[phone] [facility] [place] achileus tendon (chief complaint)Hypot hyroidism (chief complaint)HTN (chief complaint)colon CA (chief complaint) Achilles tendon ruptureUnspeci fied hypothyroidism Unspecified essential hypertension 5 Truman Lloyd. [address], [place], [address] , [place]. tel:[phone] Referring Provider: Gabino Laughlin, [address], [place], [place], [address]. tel:[phone] OFFICE/OUTPA TIENT VISIT, [facility], [address], [place], [place], [address], [place] tel:[phone] [facility] [place] sinus allergy (chief complaint) Dietary surveillance and counselingOthe r specified acquired hypothyroidism Allergic rhinitis, cause unspecifiedHyp ertension, Unspecified 2 Truman Lloyd. [address], [place], [place], [id number] , [place]. [phone] Referring Provider: Gabino Laughlin [address] [facility] [address], [place], [place], [id number]. tel:[phone] OFFICE/OUTPA TIENT VISIT, [facility], [address], [place], [place], [address], [place] tel:[phone] [facility] [place] hyperlipidemia (chief complaint)hypot hyroidism (chief complaint)vitam in D (chief complaint)hyper tension (chief complaint) Dietary surveillance and counselingHypo thyroidismOthe r and unspecified hyperlipidemia Unspecified vitamin d deficiencyHype rtension, Unspecified 2 Truman Lloyd. [address], [place], [place], [address] , [place]. [phone] Family History Family Member Type Diagnosis Age At Onset Brother Problem (finding) Alive and well Mother Problem (finding) old age Father Problem (finding) of old age Payers Payer name Insurance type Covered democrat ID Authoriza tion(s) No Information Social History [...] Nunn [address] [place], [phone] Ordered: Referrals: Joe Nunn. Evaluate and treat ordered Referral Ordered: MRI LOWER EXTREMITY W/O DYE Right leg ordered History Of Present Illness Encounter Date Complaint History Of Prese nt Illness colon CA Pt had colon CA and he had surgery and last colonoscopy last year. Pt denies any GI complaitns HTN Pt has HTN. Pt d enies any chest pain or headache Hypothyroidism Pt has hypothyro idism. Pt is noncompliant and he has vikki done lab yet Pt is not on any meds achileus tendon Pt slipped on ki tchen floor yesterday and injuried right posterior ankle area. Pt denies any head injury. Pt went to ER and was told he has tear of achielus tendon Pt has difficulty dorsi flexion of right ankle Medications Administered Medication Instructions Dosage Effective Dates [...]
--- OUTSIDE RECORDS SUMMARY | 2024-09-06 02:05 | XMS_ITS | Clinical Summary ---
Author Organization [facility] Alfreda Almeida Address [address] [place] [address] Care Team Providers Care Cad Engineer Name Role Phone Unavailable Primary Care Provider [...] on file Legal Sex Male 1:35 PM BAR STAFF Gender Identity Not on file Sexual Orientation Not on file Last Filed Vital Signs Vital Sign Reading Time Taken Comments Blood Pressure 152/73 05/30/2022 2:02 PM BAR STAFF Pulse 66 05/30/2022 1:59 PM BAR STAFF Temperature 36.3 C (97.4 F) 05/30/2022 1:59 PM BAR STAFF Respiratory Rate 10 05/30/2022 1:59 PM BAR STAFF Oxygen Saturation 100% 05/30/2022 1:59 PM BAR STAFF Inhaled Oxygen Concentration - - Weight 71.2 kg (157 lb) 05/30/2022 1:59 PM BAR STAFF Height 167.6 cm (5' 6) 05/01/2022 2:55 PM BAR STAFF Body Mass Index 25.34 05/01/2022 2:55 PM BAR STAFF Plan of Treatment Health Maintenance Due Date Last Done Comments DTAP/TDAP/TD VACCINES (1 - Tdap) 07/17/1959 PNEUMOCOCCAL VACCINE 50+ YEARS (1 of 1 - PCV) 07/17/18 90 ZOSTER VACCINE (1 of 2) 07/17/1989 RSV VACCINE (60+ or ) (1 - 1-dose 75+ series) 07/17/2014 INFLUENZA VACCINE (#1) [address] [facility] MEDICARE PART A AND B
--- OUTSIDE RECORDS SUMMARY | 2024-09-06 02:05 | XMS_ITS | Referral Summary ---
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) 08/31/2024 10:00 AM CDT Lab [facility] at [address] [address] Malignant neoplasm of ascending colon (HCC) 08/29/2024 Documentation [facility] [address] [place] [address] [address] [place] [phone] Duke Leung DO 08/09/2024 Orders Only [facility] [address] [place] [address] [address] [place] [phone] Doris Alejo, RN Malignant neoplasm of ascending colon (HCC) (Primary Dx) 08/05/2024 Orders Only [facility] [address] [place] [address] [address] [place] [phone] Duke Leung, DO 07/28/2024 2:00 PM CDT Office Visit [facility] [address] [place] [phone] Duke Leung, Malignant neoplasm of ascending colon (HCC) (Primary Dx) 07/28/2024 1:30 PM CDT Lab [facility] at [address] [address] Malignant neoplasm of ascending colon (HCC); Antineoplastic chemotherapy induced anemia 07/08/2024 Orders Only [facility] [address] [place] [phone] Duke Leung, 07/08/2024 Documentation [facility] [address] [place] [phone] Duke Leung, 06/30/2024 Results Follow-Up [facility] [address] [place] [phone] Bianka Garcia RN Comprehensive metabolic panel, CEA, CBC with auto differential, Additional followed-up results: 2 06/30/2024 9:30 AM CDT Lab [address] [address] Malignant neoplasm of ascending colon (HCC); Antineoplastic chemotherapy induced anemia 06/30/2024 8:00 AM CDT Office Visit [facility] [address] [address] [place] [phone] Yosi Berrios MD 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 Testing performed by: [facility], [address] [place] [address], [place]., [address] Blood 08/31/2024 10:0 4 AM CDT 08/31/2024 10:05 AM CDT us Duke Leung DO LAB BLOOD ORDERABLES Final R esult [facility] [address] [facility] Department [place] [address] * (ABNORMAL) Differential, auto (08/31/2024 10:04 AM CDT) Neutrophil abs 4.74 1.50 - 6.50 K/cumm Comment:Testing performed by : [address] [address] Imm gran abs 0.30(H) 0.00 - 0.10 K/cumm M[facility] Comment:Testing performed by : [address] [address] Lymphocyte abs 1.43 0.80 - 3.30 K/cumm [facility] Comment:Testing performed by : [address] [address] Monocyte abs 0.59 0.20 - 0.80 K/cumm [facility] Comment:Testing performed by : [address] [address] Eosinophil abs 0.09 0.00 - 0.50 K/cumm [facility] Comment:Testing performed by : [address] [address] Basophil abs 0.03 0.00 - 0.10 K/cumm [facility] Comment:Testing performed by : [address] [address] Neutrophil pct 66.0 % [facility] Comment: Interpretive Data Percent cell count reference ranges are not reported, since discordance with absolute values may lead to misinterpretation of CBC data. Current Interpretive Data was last revised on 2017. Testing performed by: [address] [address] Imm gran pct 4.2 % [facility] Comment: Interpretive Data Percent cell count reference ranges are not reported, since discordance with absolute values may lead to misinterpretation of CBC data. Current Interpretive Data was last revised on 2017. Testing performed by: [address] [address] Lymphocyte pct 19.9 % [facility] Comment: Interpretive Data Percent cell count reference ranges are not reported, since discordance with absolute values may lead to misinterpretation of CBC data. Current Interpretive Data was last revised on 2017. Testing performed by: [address] [address] Monocyte pct 8.2 % [facility] Comment: Interpretive Data Percent cell count reference ranges are not reported, since discordance with absolute values may lead to misinterpretation of CBC data. Current Interpretive Data was last revised on 2017. Testing performed by: [address] [address] Eosinophil pct 1.3 % [facility] Comment: Interpretive Data Percent cell count reference ranges are not reported, since discordance with absolute values may lead to misinterpretation of CBC data. Current Interpretive Data was last revised on 2017. Testing performed by: [address] [address] Basophil pct 0.4 % [facility] Comment: Interpretive Data Percent cell count reference ranges are not reported, since discordance with absolute values may lead to misinterpretation of CBC data. Current Interpretive Data was last revised on 2017. Testing performed by: [address] [address] Blood 08/31/2024 10:0 4 AM CDT 08/31/2024 10:05 AM CDT us Duke Leung DO LAB BLOOD ORDERABLES Final R esult [facility] [address] [facility] Department [place] [address] * (ABNORMAL) CBC with auto differential (08/31/2024 10:04 AM CDT) WBC 7.18 3.80 - 9.90 K/cumm Comment:Testing performed by : [address] [address] Hgb 10.8(L) 13.0 - 17.5 g/dL [facility] Comment:Testing performed by : [address] [address] Hct 31.8(L) 38.9 - 50.3 % [facility] Comment:Testing performed by : [address] [address] Plt 221 150 - 400 K/cumm [facility] Comment:Testing performed by : [address] [address] MPV 10.1 9.1 - 12.3 fL [facility] Comment:Testing performed by : [address] [address] RBC 3.24(L) 4.30 - 5.80 M/cumm [facility] Comment:Testing performed by : [address] [address] MCV 98.1(H) 81.3 - 96.4 fL [facility] Comment:Testing performed by : [address] [address] MCH 33.3 27.1 - 33.3 pg [facility] Comment:Testing performed by : [address], [address] MCHC 34.0 32.3 - 35.7 g/dL [facility] Comment:Testing performed by : [address], [address] RDW CV 14.9 11.1 - 14.9 % [facility] Comment:Testing performed by : [address] [address] RDW SD 53.6(H) 35.7 - 48.1 fL [facility] Comment:Testing performed by : [address] [address] NRBC abs 0.00 0.00 - 0.01 K/cumm [facility] Comment:Testing performed by : [address] [address] ANC Prelim 4.74 1.50 - 6.50 K/cumm [facility] Comment: Interpretive Data The rapid ANC is a preliminary automated count and may vary from the final ANC (Neut Abs) reported in the WBC differential that follows. Current interpretive data was last revised 2024. Testing performed by: [address], [address] Morphologic Screen Results confirmed by manual morphology review. [facility] Comment:Testing performed by : [address] [address] Blood 08/31/2024 10:0 4 AM CDT 08/31/2024 10:05 AM CDT Duke Leung LAB BLOOD ORDERABLES Edited Result - Final Performing Organization Address [facility] de Phone Number [facility] [address] [place] [address] * (ABNORMAL) CEA (08/31/2024 10:04 AM CDT) CEA 28.0(H) <=5.0 ng/mL Comment: Interpretive Data: Reference Range: Non-Smokers: 0.0 5.0 ng/mL Smokers: 0.0 6.5 ng/mL The Oswaldo CEA assay procedure was used. Results from different manufacturers or methods may not be comparable. Serial testing should be performed using the same method. Current interpretive data was last revised 2022. Testing performed by: [address] [address] Blood 08/31/2024 10:0 4 AM CDT 08/31/2024 11:53 AM CDT Duke Leung DO LAB BLOOD ORDERABLES Final R esult Performing Organization Address [facility] de Phone Number [facility] [place] [address] * (ABNORMAL) Comprehensive metabolic panel (08/31/2024 10:04 AM CDT) Sodium 135 135 - 145 mmol/L Comment:Testing performed by : [address] [address] Potassium, pl 4.1 3.3 - 4.9 mmol/L [facility] Comment:Testing performed by : [address] [address] Chloride 102 97 - 110 mmol/L [facility] Comment:Testing performed by : [address] [address] CO2 22 22 - 32 mmol/L [facility] Comment:Testing performed by : [address] [address] Anion gap 11 2 - 15 mmol/L [facility] Comment:Testing performed by : [address] [address] BUN 16 6 - 25 mg/dL [facility] Comment:Testing performed by : [address], [place]., [address] Creatinine 0.90 0.80 - 1.30 mg/dL [facility] Comment:Testing performed by : [address] [address] Glucose 111 70 - 199 mg/dL [facility] [...] was last revised 2022. Testing performed by: [address] [address] Calcium 8.9 8.5 - 10.3 mg/dL [facility] Comment:Testing performed by : [address] [address] Bilirubin, total 0.7 0.1 - 1.2 mg/dL [facility] Comment:Testing performed by : [address] [address] Protein, pl 7.1 6.5 - 8.5 g/dL [facility] Comment:Testing performed by : [address] [address] Albumin 3.5 3.5 - 5.0 g/dL [facility] Comment:Testing performed by : [address] [place] [address] Alk phos 132(H) 40 - 130 Units/L [facility] Comment:Testing performed by : [address] [address] ALT 26 7 - 55 Units/L [facility] Comment:Testing performed by : [address] [address] AST 24 10 - 50 Units/L [facility] Comment:Testing performed by : [address], [address] Blood 08/31/2024 10:0 4 AM CDT 08/31/2024 10:05 AM CDT Duke Leung DO LAB BLOOD ORDERABLES Final R esult [facility] [address] [facility] Department [place] [address] * eGFR (07/28/2024 1:30 PM CDT) eGFR [...] was last reviewed 2021. Testing performed by: [address] [address] Blood 07/28/2024 1:30 PM CDT 07/28/2024 1:31 PM CDT us Duke Leung DO LAB BLOOD ORDERABLES Final R esult [facility] MATOS [address] [facility] Department [place] [address] * Differential, auto (07/28/2024 1:30 PM CDT) Neutrophil abs 1.88 1.50 - 6.50 K/cumm Comment:Testing performed by : [address] [address] Imm gran abs 0.02 0.00 - 0.10 K/cumm [facility] Comment:Testing performed by : [address] [address] Lymphocyte abs 2.26 0.80 - 3.30 K/cumm [facility] Comment:Testing performed by : [address] [address] Monocyte abs 0.46 0.20 - 0.80 K/cumm [facility] Comment:Testing performed by : [address] [address] Eosinophil abs 0.02 0.00 - 0.50 K/cumm [facility] Comment:Testing performed by : [address] [address] Basophil abs 0.03 0.00 - 0.10 K/cumm [facility] Comment:Testing performed by : [address] [address] Neutrophil pct 40.3 % [facility] Comment: Interpretive Data Percent cell count reference ranges are not reported, since discordance with absolute values may lead to misinterpretation of CBC data. Current Interpretive Data was last revised on 2017. Testing performed by: [address] [address] Imm gran pct 0.4 % [facility] Comment: Interpretive Data Percent cell count reference ranges are not reported, since discordance with absolute values may lead to misinterpretation of CBC data. Current Interpretive Data was last revised on 2017. Testing performed by: [address] [address] Lymphocyte pct 48.4 % [facility] Comment: Interpretive Data Percent cell count reference ranges are not reported, since discordance with absolute values may lead to misinterpretation of CBC data. Current Interpretive Data was last revised on 2017. Testing performed by: [address] [address] Monocyte pct 9.9 % [facility] Comment: Interpretive Data Percent cell count reference ranges are not reported, since discordance with absolute values may lead to misinterpretation of CBC data. Current Interpretive Data was last revised on 2017. Testing performed by: [address] [address] Eosinophil pct 0.4 % [facility] Comment: Interpretive Data Percent cell count reference ranges are not reported, since discordance with absolute values may lead to misinterpretation of CBC data. Current Interpretive Data was last revised on 2017. Testing performed by: [address] [address] Basophil pct 0.6 % [facility] Comment: Interpretive Data Percent cell count reference ranges are not reported, since discordance with absolute values may lead to misinterpretation of CBC data. Current Interpretive Data was last revised on 2017. Testing performed by: [address] [address] Blood 07/28/2024 1:30 PM CDT 07/28/2024 1:31 PM CDT us Duke Leung DO LAB BLOOD ORDERABLES Final R esult [facility] [address] [facility] Department [place] [address] * (ABNORMAL) CBC with auto differential (07/28/2024 1:30 PM CDT) WBC 4.67 3.80 - 9.90 K/cumm Comment:Testing performed by : [address] [address] Hgb 12.0(L) 13.0 - 17.5 g/dL [facility] Comment:Testing performed by : [address], [address] Hct 34.9(L) 38.9 - 50.3 % [facility] Comment:Testing performed by : [address] [address] Plt 129(L) 150 - 400 K/cumm [facility] Comment:Testing performed by : [address], [address] MPV 9.1 9.1 - 12.3 fL [facility] Comment:Testing performed by : [address], [address] RBC 3.44(L) 4.30 - 5.80 M/cumm [facility] Comment:Testing performed by : [address], [address] MCV 101.5(H) 81.3 - 96.4 fL [facility] Comment:Testing performed by : [address], [address] MCH 34.9(H) 27.1 - 33.3 pg [facility] Comment:Testing performed by : [address], [address] MCHC 34.4 32.3 - 35.7 g/dL [facility] Comment:Testing performed by : [address], [address] RDW CV 15.0(H) 11.1 - 14.9 % [facility] Comment:Testing performed by : [address], [address] RDW SD 56.1(H) 35.7 - 48.1 fL [facility] Comment:Testing performed by : [address], [address] NRBC abs 0.00 0.00 - 0.01 K/cumm [facility] Comment:Testing performed by : [address], [address] ANC Prelim 1.88 1.50 - 6.50 K/cumm [facility] Comment: Interpretive Data The rapid ANC is a preliminary automated count and may vary from the final ANC (Neut Abs) reported in the WBC differential that follows. Current interpretive data was last revised 2024. Testing performed by: [address] [address] Blood 07/28/2024 1:30 PM CDT 07/28/2024 1:31 PM CDT Duke BeardenNelson Xochitl DO LAB BLOOD ORDERABLES Final R esult Performing Organization Address [facility] de Phone Number [facility] [address] [facility] [place] [address] * (ABNORMAL) CEA (07/28/2024 1:30 PM CDT) CEA 70.4(H) <=5.0 ng/mL Comment: Interpretive Data: Reference Range: Non-Smokers: 0.0 5.0 ng/mL Smokers: 0.0 6.5 ng/mL The Oswaldo CEA assay procedure was used. Results from different manufacturers or methods may not be comparable. Serial testing should be performed using the same method. Current interpretive data was last revised 2022. Testing performed by: [address] [address] Blood 07/28/2024 1:30 PM CDT 07/28/2024 3:59 PM CDT Duke BeardenNelson Xochitl LAB BLOOD ORDERABLES Final R esult Performing Organization Address [facility] de Phone Number [facility] [address] [facility] [place] [address] * Comprehensive metabolic panel (07/28/2024 1:30 PM CDT) Sodium 140 135 - 145 mmol/L Comment:Testing performed by : [address] [address] Potassium, pl 4.0 3.3 - 4.9 mmol/L [facility] Comment:Testing performed by : [address], [place]., [address] Chloride 108 97 - 110 mmol/L [facility] Comment:Testing performed by : [address], [place]., [address] CO2 24 22 - 32 mmol/L [facility] Comment:Testing performed by : [address], [place]., [address] Anion gap 8 2 - 15 mmol/L [facility] Comment:Testing performed by : [address], [place]., [address] BUN 16 6 - 25 mg/dL [facility] Comment:Testing performed by : [address], [place]., [address] Creatinine 0.80 0.80 - 1.30 mg/dL [facility] Comment:Testing performed by : [address], [place]., [address] Glucose 146 70 - 199 mg/dL [facility] [...] was last revised 2022. Testing performed by: [address] [address] Calcium 9.2 8.5 - 10.3 mg/dL [facility] Comment:Testing performed by : [address] [address] Bilirubin, total 0.7 0.1 - 1.2 mg/dL [facility] Comment:Testing performed by : [address], [place]., [address] Protein, pl 7.5 6.5 - 8.5 g/dL [facility] Comment:Testing performed by : [address] [address] Albumin 4.2 3.5 - 5.0 g/dL [facility] Comment:Testing performed by : [address] [address] Alk phos 104 40 - 130 Units/L [facility] Comment:Testing performed by : [address] [address] ALT 34 7 - 55 Units/L [facility] Comment:Testing performed by : [address] [address] AST 35 10 - 50 Units/L [facility] Comment:Testing performed by : [address], [place]., [address] Blood 07/28/2024 1:30 PM CDT 07/28/2024 1:31 PM CDT Duke Leung DO LAB BLOOD ORDERABLES Final R esult [facility] [address] [facility] Department [place] [address] * eGFR (06/30/2024 9:22 AM CDT) eGFR [...] was last reviewed 2021. Testing performed by: [address] [address] Blood 06/30/2024 9:22 AM CDT 06/30/2024 9:24 AM CDT Duke Leung DO LAB BLOOD ORDERABLES Final R esult [facility] [address] [facility] Department [place] [address] * Differential, auto (06/30/2024 9:22 AM CDT) Neutrophil abs 1.90 1.50 - 6.50 K/cumm Comment:Testing performed by : [address] [address] Imm gran abs 0.01 0.00 - 0.10 K/cumm [facility] Comment:Testing performed by : [address] [address] Lymphocyte abs 1.31 0.80 - 3.30 K/cumm [facility] Comment:Testing performed by : [address] [address] Monocyte abs 0.29 0.20 - 0.80 K/cumm [facility] Comment:Testing performed by : [address] [address] Eosinophil abs 0.08 0.00 - 0.50 K/cumm [facility] Comment:Testing performed by : [address] [address] Basophil abs 0.03 0.00 - 0.10 K/cumm [facility] Comment:Testing performed by : [address] [address] Neutrophil pct 52.5 % [facility] Comment: Interpretive Data Percent cell count reference ranges are not reported, since discordance with absolute values may lead to misinterpretation of CBC data. Current Interpretive Data was last revised on 2017. Testing performed by: [address] [address] Imm gran pct 0.3 % [facility] Comment: Interpretive Data Percent cell count reference ranges are not reported, since discordance with absolute values may lead to misinterpretation of CBC data. Current Interpretive Data was last revised on 2017. Testing performed by: [address] [address] Lymphocyte pct 36.2 % [facility] Comment: Interpretive Data Percent cell count reference ranges are not reported, since discordance with absolute values may lead to misinterpretation of CBC data. Current Interpretive Data was last revised on 2017. Testing performed by: [address] [address] Monocyte pct 8.0 % [facility] Comment: Interpretive Data Percent cell count reference ranges are not reported, since discordance with absolute values may lead to misinterpretation of CBC data. Current Interpretive Data was last revised on 2017. Testing performed by: [address] [address] Eosinophil pct 2.2 % [facility] Comment: Interpretive Data Percent cell count reference ranges are not reported, since discordance with absolute values may lead to misinterpretation of CBC data. Current Interpretive Data was last revised on 2017. Testing performed by: [address] [address] Basophil pct 0.8 % [facility] Comment: Interpretive Data Percent cell count reference ranges are not reported, since discordance with absolute values may lead to misinterpretation of CBC data. Current Interpretive Data was last revised on 2017. Testing performed by: [address] [address] Blood 06/30/2024 9:22 AM CDT 06/30/2024 9:24 AM CDT us Duke Leung DO LAB BLOOD ORDERABLES Final R esult [facility] MATOS [address] [facility] Department [place] [address] * (ABNORMAL) CBC with auto differential (06/30/2024 9:22 AM CDT) [facility] Signature WBC 3.62(L) 3.80 - 9.90 K/cumm Comment:Testing performed by : [address] [address] Hgb 10.7(L) 13.0 - 17.5 g/dL [facility] Comment:Testing performed by : [address] [address] Hct 31.9(L) 38.9 - 50.3 % [facility] Comment:Testing performed by : [address] [address] Plt 153 150 - 400 K/cumm [facility] Comment:Testing performed by : [address] [address] MPV 9.2 9.1 - 12.3 fL [facility] Comment:Testing performed by : [address] [address] RBC 3.07(L) 4.30 - 5.80 M/cumm [facility] Comment:Testing performed by : [address] [address] MCV 103.9(H) 81.3 - 96.4 fL [facility] Comment:Testing performed by : [address] [address] MCH 34.9(H) 27.1 - 33.3 pg [facility] Comment:Testing performed by : [address] [address] MCHC 33.5 32.3 - 35.7 g/dL [facility] Comment:Testing performed by : [address], [address] RDW CV 16.2(H) 11.1 - 14.9 % [facility] Comment:Testing performed by : [address], [address] RDW SD 62.1(H) 35.7 - 48.1 fL [facility] Comment:Testing performed by : [address] [address] NRBC abs 0.00 0.00 - 0.01 K/cumm [facility] Comment:Testing performed by : [address] [address] ANC Prelim 1.90 1.50 - 6.50 K/cumm [facility] Comment: Interpretive Data The rapid ANC is a preliminary automated count and may vary from the final ANC (Neut Abs) reported in the WBC differential that follows. Current interpretive data was last revised 2024. Testing performed by: [address] [address] Blood 06/30/2024 9:22 AM CDT 06/30/2024 9:24 AM CDT Duke Leung DO LAB BLOOD ORDERABLES Final R esult Performing Organization Address [facility] de Phone Number [facility] [address] [facility] [place] [address] * (ABNORMAL) CEA (06/30/2024 9:22 AM CDT) CEA 98.3(H) <=5.0 ng/mL Comment: Interpretive Data: Reference Range: Non-Smokers: 0.0 5.0 ng/mL Smokers: 0.0 6.5 ng/mL The Oswaldo CEA assay procedure was used. Results from different manufacturers or methods may not be comparable. Serial testing should be performed using the same method. Current interpretive data was last revised 2022. Testing performed by: [address] [address] Blood 06/30/2024 9:22 AM CDT 06/30/2024 11:46 AM CDT Duke Leung LAB BLOOD ORDERABLES Final R [facility] Performing Organization Address [facility] de Phone Number [facility] [address] [facility] [place] [address] * Comprehensive metabolic panel (06/30/2024 9:22 AM CDT) Sodium 140 135 - 145 mmol/L Comment:Testing performed by : [address] [address] Potassium, pl 4.1 3.3 - 4.9 mmol/L [facility] Comment:Testing performed by : [address] [address] Chloride 106 97 - 110 mmol/L [facility] Comment:Testing performed by : [address], [place]., [address] CO2 25 22 - 32 mmol/L [facility] Comment:Testing performed by : [address], [place]., [address] Anion gap 9 2 - 15 mmol/L [facility] Comment:Testing performed by : [address] [address] BUN 15 6 - 25 mg/dL [facility] Comment:Testing performed by : [address], [place]., [address] Creatinine 0.80 0.80 - 1.30 mg/dL MAD[facility]I Comment:Testing performed by : [address] [address] Glucose 111 70 - 199 mg/dL [facility] Comment: Interpretive Data Fasting glucose >/= [...] was last revised 2022. Testing performed by: [address] [address] Calcium 9.3 8.5 - 10.3 mg/dL MADHAVI Comment:Testing performed by : [address] [address] Bilirubin, total 1.0 0.1 - 1.2 mg/dL MADHAVI Comment:Testing performed by : [address], [place]., [address] Protein, pl 7.1 6.5 - 8.5 g/dL MADHAVI MATOS Comment:Testing performed by : [address] [address] Albumin 4.2 3.5 - 5.0 g/dL M[facility]AVI Comment:Testing performed by : [address] [address] Alk phos 81 40 - 130 Units/L [facility]I Comment:Testing performed by : [address] [address] ALT 34 7 - 55 Units/L [facility] Comment:Testing performed by : [address] [address] AST 35 10 - 50 Units/L M[facility]AVI Comment:Testing performed by : [address] [address] Blood 06/30/2024 9:22 AM CDT 06/30/2024 9:24 AM CDT Duke Leung DO LAB BLOOD ORDERABLES Final R esult [facility]AV[facility] [address] [facility] Department [place] [address] from Last 3 Months Insurance MEDICARE [facility] MEDICARE SUPPLEMENT MEDICARE [employer] MEDICARE SUPPLEMENT [facility] MEDICARE Advance Directives For more information, please contact: [phone] * Full Code (Latest Code Status on File) Date Activated Date Inactivated Comments 07/15/2023 10:51 AM 07/16/2023 5:19 AM Care Teams Vehicle Service Attendant Relationship Specialty Start Date End Date Julian Quevedo MD [address] [facility] [address] [facility] [address] [place] [address] PCP - General Family Medicine 06/30/24 Duke Leung DO [address] [place] [address] MEDICAL ONCOLOGY, [facility] [address] [place] [address] Medical Oncologist/[employer] Teacher Assistant Hematology and Oncology 01/27/23
[2024-09-06] MEDS: ACETAMINOPHEN 500 MG TABLET 1000 MG PO (10:26)
--- NOTE | 2024-09-06 10:32 | WPDHPUPDATE1 ---
History and Physical Update Update Date/Time: 09/06/24 10:32 History and Physical has been reviewed, including an updated exam of the patient. There are NO changes in the patient's condition. Risks, benefits, and alternatives have been discussed and questions answered. Patient agrees to proceed with procedure.
--- NOTE | 2024-09-06 10:40 | WPDANESEPPF ---
Anes - Initial Pre Proc Eval Procedure: Operation Date: 09/06/24 11:30 Proposed Procedures p Laparoscopic Removal of Retained Gallstones, Possible Open - Ernesto Graham DO Date/Time: 09/06/24 10:40 Surgeon: Ernesto Graham DO Pre Op Diagnosis: intraabdominal abscess, retained gallstone Patient Data Age: 84 Gender: M Height: 1.73 m Weight: 67.4 kg Last Vital Signs Temp 36.3 C L 09/06/24 10:29 Pulse 70 09/06/24 10:29 Resp 18 09/05/24 10:05 BP 120/77 09/06/24 10:29 Pulse Ox 100 09/06/24 10:29 O2 Del Method Room Air 09/06/24 10:29 Allergies Allergy/AdvReac Type Severity Reaction Status Date / Time No Known Allergies Allergy Unknown Verified 09/06/24 10:24 Home Medications ?Medication ?Instructions ?Recorded ?Confirmed ?Type clopidogrel 75 mg tablet 75 mg PO DAILY 01/20/23 09/05/24 History rosuvastatin 20 mg tablet 20 mg PO DAILY 01/20/23 09/05/24 History metoprolol succinate 50 mg 50 mg PO DAILY 02/06/23 09/05/24 History tablet,extended release 24 hr tamsulosin 0.4 mg capsule See Rx Instructions .Route 02/11/23 09/05/24 Rx .COMPLEX #90 caps tramadol 50 mg tablet 50 mg PO Q6H PRN pain #20 tabs 11/03/23 09/05/24 Rx triamcinolone acetonide 0.1 % 1 applic topical BID #80 grams 08/04/24 09/05/24 Rx topical cream fruquintinib 5 mg capsule 5 mg PO .COMPLEX Chemotherapy 08/23/24 09/05/24 History (Fruzaqla) amoxicillin 875 mg-potassium 1 tablet PO Q8H #8 tabs 08/30/24 09/05/24 Rx clavulanate 125 mg tablet midodrine 2.5 mg tablet 5 mg (2 x 2.5 mg) PO TID #180 tabs 08/30/24 09/05/24 Rx Patient hx anesthesia problems: none Family hx anesthesia problems: none Results Review: All pre-operative results and documents have been reviewed as part of the pre-operative evaluation. 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 Leung. Cholelithiasis Bilateral inguinal hernia Achilles tendon tear Surgical History Surgical History Hx laparoscopic cholecystectomy 02/09/23 Status post dilation of urethral narrowing 11/03/23 History of cardiac catheterization 07/2022 with findings of coronary artery disease with recommendation of medical therapy due to high risk for PCI, on dual anti-platelet therapy History of lithotripsy (04/15/19) History of partial colectomy (04/09/09) Laparoscopic sigmoid colectomy for sigmoid adenocarcinoma. History of colonoscopy with polypectomy History of bilateral inguinal hernia repair (05/30/16) History of Achilles tendon repair (11/29/14) Right. History of colon resection (04/23/22) Hand assisted laparoscopic right hemicolectomy with ileocolic anastomosis, small bowel resection with side to side anastomosis, and extensive adhesiolysis. Family History Family History Sibling Throat cancer Other Family history non-contributory Social History Social History Social History: Patient smoked 1/2ppd x 20yrs but quit 45yrs ago. Hx of heavy alcohol use when he was young but no alcohol currently. No hx of drug use including IVDU. Lives at home with his . No pets. Surrogate medical decision maker: Theodore Bryant (son). Code status: Full code. Smoking packs per day: 0.5 Smoking cigarettes per day: 10.0 Years smoked: 20 Smoking pack-years: 10.00 Smoking status: Former smoker Tobacco type: cigarettes Second hand tobacco smoke exposure: No Smoking end date: 03/23/79 Additional smoking assessment comments: SON STATES PT STOPPED SMOKING ABOUT 45YRS AGO Alcohol intake: current Drinks per week: 1 Alcohol use details: RARELY - FEW TIMES A YEAR Substance use: never Substance use type: does not use Do You Feel Safe in your Home?: Yes Lack of Transportation: No Lack of Food: Never True Current Housing: I Have Housing Concerned About Future Housing: Decline to Answer Difficulty Paying Gas/Electric Bills: Decline to Answer Difficulty Paying for Meds: Decline to Answer Currently Unemployed: Decline to Answer Education: High School Diploma/GED Difficulty w/ Childcare or Family Care: Decline to Answer Living arrangements: with family Additional living arrangements comments: Occupation/Education: retired 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 Spiritual care concerns: No Anes - Eval Final PreProcedure Day of Procedure 09/06/24 10:40 Patient weight: normal Heart: regular rate and rhythm Lungs: clear to auscultation Airway: Mallampati scale class II Neurological: other (alert) Last oral intake: >/= 8 hours ASA classification: III Emergent: no Anesthetic plan: proceed Anesthesia type and monitoring: general ETT and standard monitoring Results Review: All pre-operative results and documents have been reviewed as part of the pre-operative evaluation. Informed Consent: The patient's anesthetic plan and its attendant risks and benefits were discussed with the patient/family/POA. Questions were solicited and answers provided to the satisfaction of the patient/family/POA.
[2024-09-06] MEDS: LACTATED RINGERS 1,000 ML 30 ML IV CONT (10:50)
[2024-09-06] MEDS: ceFAZolin 2 GM/D5W 50 ML 2 GM/50 ML BAG IVPB ×2 (10:56→21:18)
[2024-09-06] MEDS: BUPIVACAINE/EPINEPHRINE 0.5% 30 ML VIAL INFILTRATE (11:45)
--- NOTE | 2024-09-06 12:20 | S_PTH ---
PATIENT: Sterling Bryant LOC: [facility] U#:[id number] AGE/SX: 84/M ROOM: RE09/06/[address]: Ernesto Graham DO : 1940 BED: DIS: 09/07/2024 SPEC #: [id number] RECD: 09/06/24 13:03 STATUS: MASSIEL REQ #: [id number] KRYS: 09/06/24 12:[address]: Ernesto Graham DEPT: [facility] Surgical RECD BY: Karolina Goyal ENTERED: 09/06/24 13:04 SP TYPE: Surgical OTHR DR: FEEDER WORKER POWER UNIT OPERATOR PHYSICIAN Tissues: A - Soft Tissue B - Peritoneal Bx Procedures: Hematoxylin and Eosin Stain Gross and Microscopic Level 3 Gross and Microscopic Level 4 CDX2 CK 20 CK 7
--- NOTE | 2024-09-06 12:45 | P.OP_ITS ---
Procedure Note - Detailed Date of Procedure 09/06/24 Pre-op Diagnosis intraabdominal abscess, retained gallstone, metastatic colon cancer Post-op Diagnosis Same Procedure Performed 1. Laparoscopic removal of retained gallstone 2. Laparoscopic peritoneal biopsy 3. Laparoscopic adhesiolysis Surgeon Ernesto Graham DO Centrifugal Extractor Operator Lizbeth Louise PA-C Anesthesia General and Local ( 0.5% bupivacaine with epinephrine) Indications this is an 84-year-old man who presented with a recent history of septic shock and a an abdominal abscess in the right upper quadrant. He has a remote history of a laparoscopic cholecystectomy and imaging showed evidence of a probable retained gallstone in the area of the abscess. The patient also has a history of metastatic colon cancer and was on chemotherapy and immune suppressed. A percutaneous drain was placed at the location of the abscess. He has recovered from that infection but has risks of recurrent abscesses with the retained gallstone. Discussions were made with the patient and family about treatment options and decision was made to proceed with laparoscopic removal of retained gallstone, possible open. Findings Upon inspecting the abdomen laparoscopically, there were many omental adhesions as well as adhesions of the right lobe of the liver up to the abdominal wall. Was able to place 2 ports initially and perform laparoscopic adhesiolysis. I then eventually was able to place a 3rd port and continue carefully taking down adhesions exploring the abdomen for the retained gallstone in the right upper quadrant. There were some adhesions up to the area where the drain was placed. One of these areas of adhesion appeared very nodular and hard therefore this was excised and sent to the lab for pathology. I was able to find the abscess cavity and there did appear to be evidence of some gallstone fragments in this region. Gallstone was removed and sent to lab for pathology. The drain was then also removed. I then irrigated the abdomen with sterile saline. No other abnormalities noted. Description of Procedure Procedure as well as risks, benefits, and alternatives were discussed with the patient. Written consent was obtained and placed in chart prior to procedure. Patient was brought back to surgical suite. He was placed supine on operating table. Time-out was done to confirm patient and procedure. He was then intubated by the anesthesia department. He was then repositioned into left lateral position with a jerez bag positioner. His abdomen and right flank were prepped and draped in sterile fashion using chlorhexidine prep. 0.5% bupivacaine with epinephrine was infiltrated locally at each of the locations for port placement. A 5 mm incision was made in the right subcostal region and a 5 mm Optiview trocar was advanced through the abdominal layers under direct visualization. Once inside the abdominal cavity, carbon dioxide insufflation was used to create a pneumoperitoneum. The camera was inserted the abdomen was inspected. Adhesions were identified but no other significant abnormalities were initially seen. I was able to visualize an area in the right lateral abdomen that was free of adhesions. A 5 mm incision was made this location a 5 mm trocar was inserted under direct visualization. I then began careful adhesiolysis using scissors with electrocautery. The adhesions appeared to be mostly omentum initially. As I was able to take down most of the omental adhesions in the right upper quadrant was then able to visualize the right subxiphoid region and this appeared to be free of adhesions. A 12 mm incision was placed at this location and a 12 mm port was placed under direct visualization. I then continued careful adhesiolysis and was able to identify the right inferior edge of the liver. The liver appeared to be adherent to some of the omental adhesions as well as to the abdominal wall. These adhesions were carefully taken down using scissors to carefully be able to mobilize and identify the entire right lobe of the liver. I did find 1 retained Endo clip attached to the undersurface of the liver that I removed and discarded. There was then a firm area of omentum adherent to the right lateral abdominal wall near the rib cage. This appeared to be close to the area where the drain was placed. I was not able to initially identify the drain intra-abdominally. The firm area was carefully taken down from the abdominal wall using scissors with electrocautery. I excised a piece of this tissue and sent it to the lab for pathology. It was difficult to tell if this was possibly close to bowel and possibly in the area the previous ileocolic anastomosis. There appeared to be some omental fatty adhesions in this area but there was possibly bowel just deep to this. I then chose to come across this area with an Endo-PHYLICIA 45 mm blue load stapler to remove the last small corner the firm nodule that was attached to the peritoneum. This was removed and sent to the lab for pathology. I then dissected just a little deeper along the peritoneal edge in the location of the drain and was able to enter into the abscess cavity. I was able to visualize the drain at this point and then there also appeared to be a stone sitting right next to the drain. The stone was grasped using a laparoscopic scoop and was removed and sent to the lab for pathology. I then opened up any other adhesions around the abscess cavity using scissors with electrocautery. No other pockets of purulence fluid were identified. At this point the drain was then removed by cutting the suture at the exit site on the skin and carefully withdrawing the drain. Drain was fully removed with the tip intact. I then irrigated the abdomen with sterile saline. No other significant abnormalities were identified and hemostasis appeared adequate. The 12 mm port was then removed a Ramírez- Guilherme was used to approximate the fascia with an 0 Vicryl suture. The remaining ports were then removed under direct visualization, the camera was removed, and the pneumoperitoneum was released. 0.5% bupivacaine with epinephrine was infiltrated locally at each of the port sites. The skin edges were then reapproximated using 4-0 Monocryl subcuticular sutures. Exofin glue was then applied on top. The patient was then awakened from anesthesia, extubated, and transferred to recovery. Estimated Blood Loss 50 Pathology Yes ( Peritoneal biopsy, retained gallstone) Complications No immediate complications Condition Stable Disposition Observation [facility] Billing Surgery - Charge Forward: Surgery Billing
[2024-09-06] MEDS: fentaNYL CITRATE INJ (*CRX) 100 MCG/2 ML VIAL 25 MCG IV PUSH ×3 (13:23→13:51)
--- NOTE | 2024-09-06 14:20 | SUR.PHASEI ---
Patient meets PACU discharge criteria, unit bed unavailable at this time. Patient placed in extended recovery status.
--- NOTE | 2024-09-06 16:04 | PC.NURSE ---
This patient, Sterling Bryant, was admitted to [facility] S[facility] Room 312-01. Patient/family oriented to hospital policies and general routines including ID bracelet, bed and alarms, visiting hours, pain management, procedures, bathroom and other care routines, personal items, smoking policy, room service/diet, and visiting hours. Information on how to activate the Rapid Response Team has been discussed. Patient/Family are encouraged to report perceived risks to care and to ask questions if they do not understand what they are told or what they should do. received report from veronica.
[2024-09-06] MEDS: LACTATED RINGERS 1,000 ML 100 ML IV CONT (16:19)
[2024-09-06] MEDS: MIDODRINE HCL 2.5 MG TABLET 5 MG PO (16:19)
[2024-09-07 01:08] VITALS: BP 122/62; PULSE 66; RESP 18; TEMP 36.1; O2SAT 99
[2024-09-07 05:27] VITALS: BP 131/74; PULSE 67; RESP 18; TEMP 36.6; O2SAT 99
[2024-09-07] MEDS: traMADol HCL (*CRX) 50 MG TABLET PO (05:28)
[2024-09-07] MEDS: ceFAZolin 2 GM/D5W 50 ML 2 GM/50 ML BAG IVPB ×2 (05:30→11:22)
[2024-09-07 06:07] LABS: Hematocrit 31.2 % (42.0-52.0); Hemoglobin 10.1 g/dL (14.0-18.0); Mean Corpuscular HGB Conc 32.4 g/dl (32-36); Mean Corpuscular Hemoglobin 33.6 pg (26-34); Mean Corpuscular Volume 103.7 fl (80-100); Mean Platelet Volume 9.1 fl (7.4-10.4); Platelet Count Result 320 k/mm3 (150-375); Red Blood Count 3.01 M/mm3 (4.6-6.20); Red Cell Distribution Width 15.3 % (11.5-14.5); White Blood Count 7.9 K/mm3 (4.5-10.0)
[2024-09-07 06:23] LABS: Anion Gap 8 mmol/L (4-12); Blood Urea Nitrogen 10 mg/dL (9-20); Calcium 8.6 mg/dL (8.4-10.2); Carbon Dioxide 19 mmol/L (22-30); Chloride 107 mmol/L (98-107); Estimated CRCL calculation 70 ml/min; Estimated Glomerular Filt Rate > 60; Glucose 110 mg/dL (65-110); Potassium 3.8 mmol/L (3.4-5.0); Sodium 134 mmol/L (137-145)
[2024-09-07 09:06] VITALS: PULSE 66
[2024-09-07] MEDS: METOPROLOL SUCCINATE EXT REL 50 MG TABCR PO (09:06)
[2024-09-07] MEDS: TAMSULOSIN HCL 0.4 MG CAPSULE PO (09:06)
[2024-09-07] MEDS: ROSUVASTATIN 20 MG TABLET PO (09:07)
[2024-09-07] MEDS: MIDODRINE HCL 2.5 MG TABLET 5 MG PO ×2 (09:07→13:11)
[2024-09-07 09:27] VITALS: BP 100/68; PULSE 73; RESP 14; TEMP 36.1; O2SAT 100
[2024-09-07 13:27] VITALS: BP 94/62; PULSE 65; RESP 14; TEMP 36.2; O2SAT 99
--- NOTE | 2024-09-07 13:38 | P.DS_ITS ---
DS: Admitting Diagnosis Discharge Date 09/07/2024 Admitting Diagnosis Intra-abdominal abscess Retained gallstone Metastatic colon cancer DS: Discharge Diagnosis Discharge Diagnosis (1) Retained gallstones following laparoscopic cholecystectomy: Code(s): K91.86 - Retained cholelithiasis following cholecystectomy Status: Acute (2) Intra-abdominal abscess: Code(s): K65.1 - Peritoneal abscess Status: Acute (3) Metastatic colon cancer to liver: Code(s): C18.9 - Malignant neoplasm of colon, unspecified; C78.7 - Secondary malignant neoplasm of liver and intrahepatic bile duct Status: Acute DS: Summary Hospital Course Reason for hospitalization: This is an 84-year-old man who is known to our service from a recent hospitalization with septic shock and an intra-abdominal abscess in the right upper quadrant. He has a remote history of laparoscopic cholecystectomy and imaging showed evidence of a probable retained gallstone in the area of the abscess. He also has a history of metastatic colon cancer and was on chemotherapy and was immunosuppressed. He was treated with IV antibiotics and percutaneous drainage. The percutaneous drain was left in place after resolution of the abscess and sepsis. He had a high risk for recurrent abscesses with the retained gallstone, therefore decision was made to proceed with laparoscopic removal of the retained gallstone by Dr. Graham. Hospital Course: He was brought in for elective surgery on 09/06/2024 and underwent laparoscopic removal of retained gallstone, laparoscopic peritoneal biopsy, and laparoscopic adhesiolysis by Dr. Graham. (see procedure note for details) The patient was monitored overnight postoperatively. He is tolerating a diet. Not complaining of any postoperative pain. Lima catheter removed this morning. He is stable for discharge later today if he is able to void without issues. If unable to void, then he will have a Lima catheter replaced. Status at Discharge Functional status at discharge: uses cane/walker Overall status at discharge: patient is progressing back to baseline Time Spent with Patient Time attestation: Total time spent providing and/or coordinating discharge services: Exam Const: General: comfortable and no acute distress Orientation/consciousness: patient oriented x3 GI: Inspection: non-distended and incision (Dry and glue intact, no erythema or drainage) GI Palp: Yes Soft to palpation, Yes Tenderness to palpation present (GI) (Very minimal expected incisional tenderness), No Guarding due to palpation present (GI) and No Rebound tenderness present Auscultation: normal bowel sounds DS: Data Data Completed and Pending Pending studies at discharge: Pending at discharge 09/06/24 12:20 Surgical [PTH] Routine Labs on day of discharge: Labs from last 24 hours 09/07/24 05:58 WBC 7.9 RBC 3.01 L Hgb 10.1 L Hct 31.2 L MCV 103.7 H MCH 33.6 MCHC 32.4 RDW 15.3 H Plt Count 320 D MPV 9.1 Sodium 134 L Potassium 3.8 Chloride 107 Carbon Dioxide 19 L Anion Gap 8 BUN 10 Creatinine 0.63 L Estim Creat Clear Calc 70 Estimated GFR > 60 Glucose 110 Calcium 8.6 Procedures/Treatments: Procedures Operation Date: 09/06/24 11:30 Actual Procedure Side Surgeon p Laparoscopic Removal of Retained Gallstones, Adhesiolysis, Peritoneal Biopsy Ernesto Graham DO Discharge Plan Discharge Patient Disposition: Home Discharge Instructions: * No lifting more than 15-20 lbs x 2 weeks * Follow-up with Dr. Garham in 2 weeks as scheduled. Call sooner with surgical concerns or questions. [phone] * May shower over incisions with soap and water. Leave incisions open to air. * Take Tylenol as needed for pain Patient Language: Kiswahili Stand Alone Forms: General Discharge Instructions Follow-up/Referrals: Ernesto Graham DO [Physician] - Keep Reg. Scheduled Appt. Discharge Medications: Continued rosuvastatin 20 mg tablet 20 mg PO DAILY metoprolol succinate 50 mg tablet extended release 24 hr 50 mg PO DAILY Fruzaqla 5 mg capsule 5 mg PO .COMPLEX Patient Comments: ON HOLD LAST DOSE July Rx Instructions: 5 mg orally; See External Prescription details midodrine 2.5 mg Tablet 5 mg PO TID Qty: 180 0RF tramadol 50 mg tablet 50 mg PO Q6H PRN (Reason: pain) Qty: 20 0RF tamsulosin 0.4 mg capsule See Rx Instructions .ROUTE .COMPLEX Qty: 90 0RF Dose Instruction: TAKE 1 CAPSULE BY MOUTH EVERY MORNING Rx Instructions: TAKE 1 CAPSULE BY MOUTH EVERY MORNING triamcinolone acetonide 0.1 % cream 1 applic topical BID Qty: 80 1RF Held clopidogrel 75 mg tablet 75 mg PO DAILY Hold Instructions: Resume on 09/08/24. May resume clopidogrel tomorrow on 09/08/24 Patient Comments: ON HOLD LAST DOSE 09/01/24 Discontinued amoxicillin-pot clavulanate 875-125 mg tablet 1 tablet PO Q8H Qty: 8 0RF Quality VTE Prophylaxis VTE prophylaxis: mechanical ordered If No VTE Prophylaxis Answer both mechanical and pharmacologic: Reason no pharmacologic proph: low risk/not indicated
--- NOTE | 2024-09-07 14:32 | WPDANESPN ---
Anes - Prog Note Post-Op Date/Time: 09/07/24 14:32 Cardiovascular status: normal Respiratory status: normal Airway patency: baseline Mental status: baseline Post-Op hydration status: normal Vital Signs: Last Vital Signs Temp 96.9 F L 09/07/24 09:27 Pulse 73 09/07/24 09:27 Resp 14 09/07/24 09:27 BP 100/68 09/07/24 09:27 Pulse Ox 100 09/07/24 09:27 O2 Del Method Room Air 09/07/24 09:05 O2 Flow Rate 8 09/06/24 13:35 Pain Score (VAS): 0/10 I/O: Intake & Output 09/06/24 09/07/24 09/07/24 23:59 07:59 15:59 Intake Total 50 50 222 Balance 50 50 222 Laboratory Tests 09/07/24 05:58 09/07/24 05:58 09/07/24 05:58 WBC 7.9 RBC 3.01 L Hgb 10.1 L Hct 31.2 L MCV 103.7 H MCH 33.6 MCHC 32.4 RDW 15.3 H Plt Count 320 D MPV 9.1 Sodium 134 L Potassium 3.8 Chloride 107 Carbon Dioxide 19 L Anion Gap 8 BUN 10 Creatinine 0.63 L Estim Creat Clear Calc 70 Estimated GFR > 60 Glucose 110 Calcium 8.6 Post-procedural complaints: none Patient Feedback: Patient satisfied with anesthetic care.
== END 2024-09-07 16:43 | disposition home or self-care (01) ==
LOC: ANHSURGERY 09:26 → ANH3MEDSUR 15:47
PROVIDERS: PCP Family Medicine; Visit Provider Surgery
PROC: 0FT44ZZ Resection of Gallbladder, Percutaneous Endoscopic Approach (ICD-10-PCS; CPT 47562; principal; 2024-09-06 11:30)
DX: K91.86 Retained cholelithiasis following cholecystectomy (principal); K65.1 Peritoneal abscess; C18.9 Malignant neoplasm of colon, unspecified; C78.6 Secondary malignant neoplasm of retroperitoneum and peritoneum; C78.7 Secondary malignant neoplasm of liver and intrahepatic bile duct; Z90.49 Acquired absence of other specified parts of digestive tract; Z79.899 Other long term (current) drug therapy; Z87.891 Personal history of nicotine dependence
CPT/HCPCS: 49321; 49329; 36415; 80048; 85027; 88304; 88305; 88342; A9270; J0690; J3010; J7120

== ENCOUNTER 2025-02-14 21:41 | Inpatient (IN) | payer MEDICARE, SELFPAY ==
--- NOTE | ~2025-02-14 | XR_ITS ---
EXAMINATION: XR abdomen obstructive series, 02/16/2025 7:50 ENDING MACHINE OPERATOR HISTORY: SBO COMPARISON: No comparisons available. Technique: 3 view. Findings: There are dilated loops of small bowel the largest 3.5 cm with diminished air throughout the large bowel. No free air. No abnormal calcifications No acute osseous abnormality. Impression: 1. Probable small bowel obstruction. The findings appear unchanged compared to the previous exam Reviewed, dictated and finalized at location P. NG MACHINE OPERATOR Impression: 1. Probable small bowel obstruction. The findings appear unchanged compared to the previous exam
--- NOTE | ~2025-02-14 | XR_ITS ---
XR abdomen gastric tube rechec INDICATION: Evaluate NG tube position. TECHNIQUE: Limited KUB perform for evaluating NG tube . COMPARISON: FINDINGS: NG tube tip coiled in the distal esophagus.. Visualized bowel gas pattern is nonspecific.There are cholecystectomy clips. IMPRESSION: 1: NG tube tip coiled in the distal esophagus. Reviewed, dictated and finalized at location O. R LIFT OPERATOR
--- NOTE | ~2025-02-14 | XR_ITS ---
EXAMINATION: XR abdomen gastric tube insert 02/15/2025 07:15 INDICATION: NG tube placement PROCEDURE: AP portable chest COMPARISON: No prior studies for comparison. FINDINGS: The lungs are clear. The cardiomediastinal silhouette is within normal limits. There are no pleural effusions. There is no pneumothorax suspected. NG tube appears to be coiled in the neck. IMPRESSION: 1: NO ACUTE CARDIOPULMONARY DISEASE. 2: NG tube appears to be coiled in the neck, partially visualized, likely in the oropharynx. Reviewed, dictated and finalized at location O. DRIVER IMPRESSION: 1: NO ACUTE CARDIOPULMONARY DISEASE. 2: NG tube appears to be coiled in the neck, partially visualized, likely in t he oropharynx.
--- NOTE | ~2025-02-14 | CT_ITS ---
EXAMINATION: CT abdomen pelvis w con DATE: 02/15/2025 00:36 INDICATION: Abdominal pain history of malignant neoplasm of the colon. TECHNIQUE: Computed tomography (CT) of the abdomen and pelvis was performed with 100 cc Omnipaque 350 intravenous contrast. The dose-length product was 319.96 mGy-cm. Automated exposure control and iterative reconstruction technique were employed. COMPARISON: CT dated 08/23/2024 FINDINGS: There is dilated small bowel with air-fluid levels and transition in the distal small bowel proximal to ileocolic anastomosis in the right upper abdomen, consistent with obstruction. There is focal thickening of the small bowel at this level. Dependent atelectasis. Heart size normal. No significant pleural or pericardial effusion. Status post cholecystectomy. Fatty infiltration of the liver. There is an 1.4 cm pleural-based right lower lobe mass which is low density measuring 23 Hounsfield units. There is an infrarenal abdominal aortic aneurysm measuring 3.2 cm. The colon is relatively decompressed. Small hiatal hernia. The spleen, pancreas, adrenal glands are unremarkable. There is a right renal cyst. There are nonobstructing left renal stones. Fatty infiltration of the liver. Moderate lower thoracic and lumbar spondylosis. IMPRESSION: 1. Small bowel obstruction with probable transition point near the ileocecal colonic anastomosis in the right upper abdomen. There is nearby small bowel thickening, likely site of transition. 2: Right lower lobe lobulated 1.4 cm mass which is low density measuring 23 Hounsfield units. Given the clinical history of colon carcinoma this likely represents metastatic disease. 3: Nonobstructing left nephrolithiasis. Reviewed, dictated and finalized at location O. TROTYPE CASTER IMPRESSION: 1. Small bowel obstruction with probable transition point near the ileocecal co lonic anastomosis in the right upper abdomen. There is nearby small bowel thick ening, likely site of transition. 2: Right lower lobe lobulated 1.4 cm mass which is low density measuring 23 Ana nsfield units. Given the clinical history of colon carcinoma this likely repres ents metastatic disease. 3: Nonobstructing left nephrolithiasis.
--- NOTE | ~2025-02-14 | XR_ITS ---
EXAMINATION: XR abdomen obstructive series, 02/17/2025 10:25 HAT BLOCK BENCH HAND HISTORY: abdominal pain COMPARISON: No comparisons available. Technique: 3 view. Findings: Bowel gas pattern unremarkable. No obstruction. No free air. No abnormal calcifications No acute osseous abnormality. Impression: 1. No acute abnormality. Reviewed, dictated and finalized at location P. BLOCK BENCH HAND Impression: 1. No acute abnormality.
[2025-02-14 21:51] VITALS: BP 168/91; PULSE 63; RESP 16; TEMP 36.4; O2SAT 100
[2025-02-14 22:55] VITALS: BP 185/95; PULSE 61; RESP 14; O2SAT 96
[2025-02-14 23:01] VITALS: BP 153/95; PULSE 62; RESP 17; O2SAT 98
[2025-02-14 23:16] VITALS: BP 155/88; PULSE 58; RESP 13; O2SAT 97
[2025-02-14 23:31] VITALS: BP 166/90; PULSE 56; RESP 14; O2SAT 98
[2025-02-14 23:32] LABS: Hematocrit 38.5 % (42.0-52.0); Hemoglobin 12.9 g/dL (14.0-18.0); Immature Granulocyte Percent A 0.2 % (0-0.5); Lymphocytes Absolute Auto 1.88 K/mm3 (0.9-3.2); Mean Corpuscular HGB Conc 33.5 g/dl (32-36); Mean Corpuscular Hemoglobin 33.9 pg (26-34); Mean Corpuscular Volume 101.3 fl (80-100); Nucleated Red Blood Cells Absolute Auto 0.000 K/mm3 (0.0-0.012); Nucleated Red Blood Cells Perc 0.0 % (0.0-0.2); Platelet Count Result 185 k/mm3 (150-375); Red Blood Count 3.80 M/mm3 (4.6-6.20); White Blood Count 6.0 K/mm3 (4.5-10.0)
[2025-02-14 23:46] VITALS: BP 167/91; PULSE 56; RESP 14; O2SAT 98
[2025-02-14 23:47] LABS: Alanine Aminotransferase 108 U/L (6-50); Albumin Level 4.3 g/dL (3.5-5.1); Alkaline Phosphatase 91 U/L (38-126); Anion Gap 7 mmol/L (4-12); Aspartate Amino Transferase 110 U/L (17-59); Bilirubin,Total 1.1 mg/dL (0.2-1.3); Blood Urea Nitrogen 23 mg/dL (9-20); Calcium 9.3 mg/dL (8.4-10.2); Carbon Dioxide 25 mmol/L (22-30); Chloride 105 mmol/L (98-107); Estimated Glomerular Filt Rate > 60; Glucose 111 mg/dL (65-110); Lipase 45 U/L (23-300); Potassium 4.1 mmol/L (3.4-5.0); Sodium 137 mmol/L (137-145); Total Protein 8.1 g/dL (6.3-8.2)
[2025-02-15] VITALS (13 sets, daily range): BP systolic 131–195; BP diastolic 78–105; PULSE 52–86; RESP 12–20; TEMP 36.2–36.4; O2SAT 99–100
--- NOTE | 2025-02-15 00:43 | ED.ABDPAIN ---
HPI - Abdominal Pain General Chief Complaint: Abdominal Pain <Adali Li APRN - Last Filed: 02/15/25 04:43> Stated Complaint: abd pain <Adali Li APRN - Last Filed: 02/15/25 04:43> Time Seen by Provider: 02/14/25 23:56 <Adali Li APRN - Last Filed: 02/15/25 04:43> History of Present Illness HPI narrative: Patient is an 84-year-old male who presents to the ER with abdominal pain. His son reports he had a son onset today around 4:00 p.m.. Patient denies any nausea, vomiting, diarrhea, or recent fevers. His son reports he has a history of colon cancer and takes Fruzaqla every day. According to patient's records he has a history of urinary retention, hyperlipidemia, and high blood pressure. <Adali Li APRN - Last Filed: 02/15/25 04:43> Related Data Home Medications: Home Medications ?Medication ?Instructions ?Recorded ?Confirmed ?Last Taken ?Type clopidogrel 75 mg tablet 75 mg PO DAILY 01/20/23 09/26/24 08/22/24 History Held on 09/07/24. Instructions: Resume on 09/08/24. May resume clopidogrel tomorrow on 09/08/24 rosuvastatin 20 mg tablet 20 mg PO DAILY 01/20/23 09/26/24 08/22/24 History metoprolol succinate 50 mg 50 mg PO DAILY 02/06/23 09/26/24 08/22/24 History tablet,extended release 24 hr fruquintinib 5 mg capsule 5 mg PO .COMPLEX Chemotherapy 08/23/24 09/26/24 08/10/24 History (Fruzaqla) <Adali Li APRN - Last Filed: 02/15/25 04:43> Allergies/Adverse Reactions: Allergies Allergy/AdvReac Type Severity Reaction Status Date / Time No Known Allergies Allergy Unknown Verified 02/14/25 21:42 <Adali Li APRN - Last Filed: 02/15/25 04:43> Review of Systems Review of Systems: All systems reviewed & are unremarkable except as noted in HPI and below <Adali Li APRN - Last Filed: 02/15/25 04:43> [facility] Past Medical History Medical History: Medical History Idiopathic stricture of urethra Coronary artery disease Aneurysm of infrarenal abdominal aorta Diverticulitis Colon cancer 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 Leung. Cholelithiasis Bilateral inguinal hernia Achilles tendon tear <Adali Li APRN - Last Filed: 02/15/25 04:43> Surgical History Surgical History: Surgical History Hx of laparoscopy 09/06/24 1. Laparoscopic removal of retained gallstone 2. Laparoscopic peritoneal biopsy 3. Laparoscopic adhesiolysis Dr. Graham Hx laparoscopic cholecystectomy 02/09/23 Status post dilation of urethral narrowing 11/03/23 History of cardiac catheterization 07/2022 with findings of coronary artery disease with recommendation of medical therapy due to high risk for PCI, on dual anti-platelet therapy History of lithotripsy (04/15/19) History of partial colectomy (04/09/09) Laparoscopic sigmoid colectomy for sigmoid adenocarcinoma. History of colonoscopy with polypectomy History of bilateral inguinal hernia repair (05/30/16) History of Achilles tendon repair (11/29/14) Right. History of colon resection (04/23/22) Hand assisted laparoscopic right hemicolectomy with ileocolic anastomosis, small bowel resection with side to side anastomosis, and extensive adhesiolysis. <Adali Li APRN - Last Filed: 02/15/25 04:43> Family History Family History: Family History Sibling Throat cancer Other Family history non-contributory <Adali Li APRN - Last Filed: 02/15/25 04:43> Social History Social History: Social History Social History: Patient smoked 1/2ppd x 20yrs but quit 45yrs ago. Hx of heavy alcohol use when he was young but no alcohol currently. No hx of drug use including IVDU. Lives at home with his . No pets. Surrogate medical decision maker: Theodore Bryant (son). Code status: Full code. Smoking packs per day: 0.5 Smoking cigarettes per day: 10.0 Years smoked: 20 Smoking pack-years: 10.00 Smoking status: Former smoker Tobacco type: cigarettes Second hand tobacco smoke exposure: No Smoking end date: 03/23/79 Additional smoking assessment comments: SON STATES PT STOPPED SMOKING ABOUT 45YRS AGO Alcohol intake: former Drinks per week: 1 Alcohol use details: RARELY - FEW TIMES A YEAR Substance use: never Substance use type: does not use Do You Feel Safe in your Home?: Yes Lack of Transportation: No Lack of Food: Never True Current Housing: I Have Housing Concerned About Future Housing: No Difficulty Paying Gas/Electric Bills: No Difficulty Paying for Meds: No Currently Unemployed: No Education: Decline to Answer Difficulty w/ Childcare or Family Care: No Living arrangements: with family Additional living arrangements comments: Occupation/Education: retired 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 Spiritual care concerns: No <Adali Li, NETWORK RELATIONS CONSULTANT - Last Filed: 02/15/25 04:43> Exam Narrative: GENERAL: Well appearing, well-nourished, non-toxic, in no acute distress. HEAD: Normocephalic, atraumatic. NECK: Supple. No adenopathy, no masses. RESPIRATORY: Airway patent, respirations nonlabored. Clear to auscultation bilaterally, no rales, rhonchi, wheezing. CARDIOVASCULAR: Regular rate and rhythm without murmurs, rubs, or gallops. Peripheral pulses 2+ and equal bilaterally. ABDOMINAL: Soft, generalized tenderness with palpation, nondistended, no hepatosplenomegaly. Normoactive BS. MUSCULOSKELETAL: Moves all extremities. Strength/ROM intact without gross deformities. SKIN: Warm, dry, normal color. No rashes. NEURO: A&O X3. Speech clear. Cranial nerves II-XII intact. No ataxic movements. PSYCHIATRIC: Appropriate mood and affect. Normal interaction. <Adali Li, NETWORK RELATIONS CONSULTANT - Last Filed: 02/15/25 04:43> Course Course Emergency Course: Patient care signed over by previous provider pending CT scan and final disposition. Patient has diffuse abdominal pain constipation nausea vomiting. Previous complex surgical history with recent lysis of his adhesions in surgery in August by Dr. Annette ga. Patient CT scan report does have evidence of a small-bowel obstruction with transition point at his prior surgical anastomosis sites. Fat stranding and trace fluid likely reflecting enteritis as well. Awaiting discussion with general surgeon for recommendations. Spoke to patient's general surgeon Dr. Graham who recommended NG tube insertion given the transition point. Inserted at bedside without difficulty. Patient admitted to the hospitalist service I discussed the case with Dr. Hamilton. Patient made NPO and given fluids. Morphine for analgesia. <Aaron Telles MD - Last Filed: 02/15/25 07:24> Vital Signs Vital signs: Vital Signs Temperature 36.4 C L 02/14/25 21:51 Pulse Rate 63 02/14/25 21:51 Respiratory Rate 16 02/14/25 21:51 Blood Pressure 168/91 H 02/14/25 21:51 Pulse Oximetry 100 02/14/25 21:51 Oxygen Delivery Room Air 02/14/25 21:51 Temperature 36.4 C L 02/14/25 21:51 Pulse Rate 62 02/15/25 07:19 Respiratory Rate 14 02/15/25 07:19 Blood Pressure 167/93 H 02/15/25 07:19 Pulse Oximetry 99 02/15/25 07:19 Oxygen Delivery Room Air 02/14/25 21:51 <Adali Li APRN - Last Filed: 02/15/25 04:43> Vital Signs Temperature 36.4 C L 02/14/25 21:51 Pulse Rate 63 02/14/25 21:51 Respiratory Rate 16 02/14/25 21:51 Blood Pressure 168/91 H 02/14/25 21:51 Pulse Oximetry 100 02/14/25 21:51 Oxygen Delivery Room Air 02/14/25 21:51 Temperature 36.4 C L 02/14/25 21:51 Pulse Rate 62 02/15/25 07:19 Respiratory Rate 14 02/15/25 07:19 Blood Pressure 167/93 H 02/15/25 07:19 Pulse Oximetry 99 02/15/25 07:19 Oxygen Delivery Room Air 02/14/25 21:51 <Aaron Telles MD - Last Filed: 02/15/25 07:24> MDM - Abdominal Pain MDM Narrative Medical decision making narrative: Patient is an 84-year-old male who presents to the ER with abdominal pain. His son reports he had a son onset today around 4:00 p.m.. Patient denies any nausea, vomiting, diarrhea, or recent fevers. His son reports he has a history of colon cancer and takes Fruzaqla every day. According to patient's records he has a history of urinary retention, hyperlipidemia, and high blood pressure. Labs Ordered: CBC, CMP, UA, lipase Imaging Ordered: CT abdomen pelvis Medications Ordered: Patient declined pain medication 0430-Care signed out to Dr. Telles pending CT scan results. <Adali Li APRN - Last Filed: 02/15/25 04:43> Differential Diagnosis Differential diagnosis: Likely abdominal pain, calculus of kidney, diverticulitis and small bowel obstruction <Adali Li APRN - Last Filed: 02/15/25 04:43> Lab Data Attestation: I reviewed the patient's lab results. <Adali Li APRN - Last Filed: 02/15/25 04:43> Result diagrams: 02/14/25 23:25 02/14/25 23:25 <Adali Li APRN - Last Filed: 02/15/25 04:43> Labs: Lab Results 02/14/25 02/15/25 Range/Units 23:25 00:04 WBC 6.0 (4.5-10.0) K/mm3 RBC 3.80 L (4.6-6.20) M/mm3 Hgb 12.9 L (14.0-18.0) g/dL Hct 38.5 L (42.0-52.0) % MCV 101.3 H (80-100) fl MCH 33.9 (26-34) pg MCHC 33.5 (32-36) g/dl RDW 15.5 H (11.5-14.5) % Plt Count 185 (150-375) k/mm3 MPV 9.3 (7.4-10.4) fl Immature Gran % (Auto) 0.2 (0-0.5) % Neut % (Auto) 57.6 (45.5-73.1) % Lymph % (Auto) 31.4 (18.3-44.2) % Louisa % (Auto) 8.0 (2.6-8.5) % Eos % (Auto) 2.5 (0-4.4) % Baso % (Auto) 0.3 (0.2-1.2) % Lymph # (Auto) 1.88 (0.9-3.2) K/mm3 Louisa # (Auto) 0.5 (0.1-0.6) K/mm3 Eos # (Auto) 0.2 (0-0.3) K/mm3 Baso # (Auto) 0.0 (0.0-0.1) K/mm3 Abs Immat Gran (auto) 0.01 (0.00-0.031) K/mm3 Absolute Neuts (auto) 3.5 (1.3-6.7) K/mm3 Absolute Nucleated RBC 0.000 (0.0-0.012) K/mm3 Nucleated RBC % 0.0 (0.0-0.2) % Sodium 137 (137-145) mmol/L Potassium 4.1 (3.4-5.0) mmol/L Chloride 105 (98-107) mmol/L Carbon Dioxide 25 (22-30) mmol/L Anion Gap 7 (4-12) mmol/L BUN 23 H D (9-20) mg/dL Creatinine 0.77 (0.7-1.3) mg/dL Estim Creat Clear Calc Not Reportable Estimated GFR > 60 (59 - ) Glucose 111 H (65-110) mg/dL Calcium 9.3 (8.4-10.2) mg/dL Total Bilirubin 1.1 (0.2-1.3) mg/dL AST 110 H (17-59) U/L ALT 108 H (6-50) U/L Alkaline Phosphatase 91 (38-126) U/L Total Protein 8.1 (6.3-8.2) g/dL Albumin 4.3 (3.5-5.1) g/dL Lipase 45 (23-300) U/L Urine Color Yellow (Yellow) Urine Appearance Clear (Clear) Urine pH 7.0 (5.0-9.0) Ur Specific [place] 1.014 (1.001-1.035) Urine Protein Negative (Negative) mg/dL Urine Glucose (UA) Negative (Negative) mg/dL Urine Ketones Negative (Negative) mg/dL Ur Blood (Man) 2+ H (Negative) Urine Nitrate Negative (Negative) Urine Bilirubin Negative (Negative) Urine Urobilinogen 1.0 (<2.0) mg/dL Leukocyte Esterase Rfl Negative (Negative) WENDIE/UL Urine RBC 51-100 H (0-2) /hpf Urine WBC 0-5 (0-3) /hpf Ur Squamous Epith Cells None seen (Few) /hpf Urine Bacteria None seen /hpf Urine Casts 0-2 <Adali Li, NETWORK RELATIONS CONSULTANT - Last Filed: 02/15/25 04:43> Lab Results 02/14/25 02/15/25 Range/Units 23:25 00:04 WBC 6.0 (4.5-10.0) K/mm3 RBC 3.80 L (4.6-6.20) M/mm3 Hgb 12.9 L (14.0-18.0) g/dL Hct 38.5 L (42.0-52.0) % MCV 101.3 H (80-100) fl MCH 33.9 (26-34) pg MCHC 33.5 (32-36) g/dl RDW 15.5 H (11.5-14.5) % Plt Count 185 (150-375) k/mm3 MPV 9.3 (7.4-10.4) fl Immature Gran % (Auto) 0.2 (0-0.5) % Neut % (Auto) 57.6 (45.5-73.1) % Lymph % (Auto) 31.4 (18.3-44.2) % Louisa % (Auto) 8.0 (2.6-8.5) % Eos % (Auto) 2.5 (0-4.4) % Baso % (Auto) 0.3 (0.2-1.2) % Lymph # (Auto) 1.88 (0.9-3.2) K/mm3 Louisa # (Auto) 0.5 (0.1-0.6) K/mm3 Eos # (Auto) 0.2 (0-0.3) K/mm3 Baso # (Auto) 0.0 (0.0-0.1) K/mm3 Abs Immat Gran (auto) 0.01 (0.00-0.031) K/mm3 Absolute Neuts (auto) 3.5 (1.3-6.7) K/mm3 Absolute Nucleated RBC 0.000 (0.0-0.012) K/mm3 Nucleated RBC % 0.0 (0.0-0.2) % Sodium 137 (137-145) mmol/L Potassium 4.1 (3.4-5.0) mmol/L Chloride 105 (98-107) mmol/L Carbon Dioxide 25 (22-30) mmol/L Anion Gap 7 (4-12) mmol/L BUN 23 H D (9-20) mg/dL Creatinine 0.77 (0.7-1.3) mg/dL Estim Creat Clear Calc Not Reportable Estimated GFR > 60 (59 - ) Glucose 111 H (65-110) mg/dL Calcium 9.3 (8.4-10.2) mg/dL Total Bilirubin 1.1 (0.2-1.3) mg/dL AST 110 H (17-59) U/L ALT 108 H (6-50) U/L Alkaline Phosphatase 91 (38-126) U/L Total Protein 8.1 (6.3-8.2) g/dL Albumin 4.3 (3.5-5.1) g/dL Lipase 45 (23-300) U/L Urine Color Yellow (Yellow) Urine Appearance Clear (Clear) Urine pH 7.0 (5.0-9.0) Ur Specific [place] 1.014 (1.001-1.035) Urine Protein Negative (Negative) mg/dL Urine Glucose (UA) Negative (Negative) mg/dL Urine Ketones Negative (Negative) mg/dL Ur Blood (Man) 2+ H (Negative) Urine Nitrate Negative (Negative) Urine Bilirubin Negative (Negative) Urine Urobilinogen 1.0 (<2.0) mg/dL Leukocyte Esterase Rfl Negative (Negative) WENDIE/UL Urine RBC 51-100 H (0-2) /hpf Urine WBC 0-5 (0-3) /hpf Ur Squamous Epith Cells None seen (Few) /hpf Urine Bacteria None seen /hpf Urine Casts 0-2 <Aaron Telles MD - Last Filed: 02/15/25 07:24> Imaging Data Radiologist's impression: ITS Impressions Abdomen X-Ray 02/15/25 07:17 IMPRESSION: 1: NO ACUTE CARDIOPULMONARY DISEASE. 2: NG tube appears to be coiled in the neck, partially visualized, likely in the oropharynx. <Adali Li APRN - Last Filed: 02/15/25 04:43> ITS Impressions Abdomen X-Ray 02/15/25 07:17 IMPRESSION: 1: NO ACUTE CARDIOPULMONARY DISEASE. 2: NG tube appears to be coiled in the neck, partially visualized, likely in the oropharynx. <Aaron Telles MD - Last Filed: 02/15/25 07:24> Discharge Plan Discharge Clinical Impression: SBO (small bowel obstruction) <Adali Li APRN - Last Filed: 02/15/25 04:43> Patient Disposition: Still a Patient <Adali Li APRN - Last Filed: 02/15/25 04:43> Condition: Stable <Adali Li APRN - Last Filed: 02/15/25 04:43> Instructions: Antibiotic Form <Adali Li APRN - Last Filed: 02/15/25 04:43> Patient Language: Sinhala <Adali Li APRN - Last Filed: 02/15/25 04:43> Prescriptions: No Action rosuvastatin 20 mg tablet 20 mg PO DAILY clopidogrel 75 mg tablet 75 mg PO DAILY Patient Comments: ON HOLD LAST DOSE 09/01/24 metoprolol succinate 50 mg tablet extended release 24 hr 50 mg PO DAILY Fruzaqla 5 mg capsule 5 mg PO .COMPLEX Patient Comments: ON HOLD LAST DOSE July Rx Instructions: 5 mg orally; See External Prescription details midodrine 2.5 mg Tablet 5 mg PO TID Qty: 180 0RF tramadol 50 mg tablet 50 mg PO Q6H PRN (Reason: pain) Qty: 20 0RF tamsulosin 0.4 mg capsule See Rx Instructions .ROUTE .COMPLEX Qty: 90 0RF Dose Instruction: TAKE 1 CAPSULE BY MOUTH EVERY MORNING Rx Instructions: TAKE 1 CAPSULE BY MOUTH EVERY MORNING triamcinolone acetonide 0.1 % cream 1 applic topical BID Qty: 80 1RF <Adali Li, ROSALINA - Last Filed: 02/15/25 04:43> Follow-up/Referrals: Kandy Rodriguez MD [Primary Care Provider, Family Practice] <Adali Li APRN - Last Filed: 02/15/25 04:43>
[2025-02-15 00:45] LABS: Add Urine Microscopic? YES; Appearance Urine Clear (Clear); Glucose Urine UA Negative (Negative); Leukocyte Esterase Ur Negative LEU/UL (Negative); Nitrate Urine Negative (Negative); Non Pathogenic Casts 0-2; Specific Grav Ur 1.014 (1.001-1.035)
[2025-02-15] MEDS: MORPHINE SULFATE (*CRX) 4 MG/ML INJ 2 MG IV PUSH ×3 (06:50→15:55)
[2025-02-15] MEDS: LACTATED RINGERS 1,000 ML 125 ML IV CONT (07:44)
--- NOTE | 2025-02-15 08:12 | WPCEDHO ---
ED Hand Off Checklist All vitals saved:yes IV Site documented:yes All med administrations documented:yes -attempted NG tube 3 times. It keeps coiling up in pt's esophagus. I think Surgeon is going to have to insert it. Triage Note Triage Note Pt arrives from home with son 02/14/25 23:02 with c/o diffuse abd pain. States that pt has been constipated, but did have a BM yesterday. Denies any n/v/d. States that he did take Miralax and tums this afternoon without relief. Pt's son states pt's Khmer is not very good and he is [place], so difficult to communicate with. Agree with triage note. Allergies No Known Allergies Allergy (Unknown, Verified 02/14/25 21:42) Family History (Last Reviewed 02/15/25 @ 00:45 by Adali Li, ROSALINA) Sibling Throat cancer Other Family history non-contributory Active Medications including assessments/comments Lactated Ringer's (Lr - Lactated Ringers Iv) 1,000 mls @ 125 mls/hr IV CONT .Q8H CORINNE Last Admin: 02/15/25 07:44 Dose: 125 mls/hr Documented By: [facility] Infusion/Titration Document 02/15/25 07:44 [facility] (Rec: 02/15/25 07:44 [facility] [id number]) Intake IV Site Peripheral Access Left Forearm Container Volume 1,000 Waste Amount 0 Dosing Infusion Rate 125 Cumulative Dose Not Applicable Increase/Decrease Started Elapsed Time Elapsed Time ( 0m minutes) Administered/Completed Medications Discontinued Medications Morphine Sulfate (Morphine Sulfate (*Crx) 4 Mg/Ml Inj) 2 mg IV PUSH ONCE ONE Stop: 02/15/25 06:41 Last Admin: 02/15/25 06:50 Dose: 2 mg Documented By: ROLLY Interventions/Assessments IV / Saline Lock, Insert Start: 02/14/25 21:42 Freq: Status: Active Protocol: Document 02/14/25 23:03 ROLLY (Rec: 02/14/25 23:03 [facility] [id number]) IV Assessment Peripheral Access Left Forearm IV Catheter Access Initiated IV Insertion Date 02/14/25 IV Insertion Time 23:03 Catheter Gauge 18 IV Insertion 1 Attempts Ultrasound Used for No Placement IV Site Assessment WNL IV Care and WNL Maintenance IV / Saline Lock, Insert Start: 02/14/25 23:11 Freq: STAT Status: Active Protocol: Document 02/14/25 23:25 [facility] (Rec: 02/14/25 23:25 [id number] [id number]) IV Assessment Peripheral Access Left Forearm IV Catheter Access Continued PA: Gastrointestinal Assessment Start: 02/14/25 21:42 Freq: Status: Active Protocol: Document 02/14/25 23:03 [facility] (Rec: 02/14/25 23:03 [facility] [id number]) GI Assessment Gastrointestinal Pain Symptoms Last Vital Signs Temperature 97.5 F L 02/14/25 21:51 Pulse Rate 65 02/15/25 08:10 Respiratory Rate 16 02/15/25 08:10 Pulse Oximetry 99 02/15/25 08:10 Blood Pressure 156/94 H 02/15/25 08:10 Blood Pressure Mean 114 02/15/25 08:10 Blood Pressure Position Sitting 02/14/25 21:51 Oxygen Delivery Room Air 02/14/25 21:51 Last Result - Abnormals Only RBC 3.80 M/mm3 (4.6-6.20) L 02/14/25 23:25 Hgb 12.9 g/dL (14.0-18.0) L 02/14/25 23:25 Hct 38.5 % (42.0-52.0) L 02/14/25 23:25 MCV 101.3 fl (80-100) H 02/14/25 23:25 RDW 15.5 % (11.5-14.5) H 02/14/25 23:25 BUN 23 mg/dL (9-20) H D 02/14/25 23:25 Glucose 111 mg/dL (65-110) H 02/14/25 23:25 AST 110 U/L (17-59) H 02/14/25 23:25 ALT 108 U/L (6-50) H 02/14/25 23:25 Ur Blood (Man) 2+ (Negative) H 02/15/25 00:04 Urine RBC 51-100 /hpf (0-2) H 02/15/25 00:04 Most Recent Suicide Severity Rating Suicide Severity Rating NO RISK INDICATED 02/14/25 23:02
--- NOTE | 2025-02-15 08:37 | ADMGEN ---
This patient, Sterling Bryant, was admitted to 2 Medical Room 248-. Patient/family oriented to hospital policies and general routines including ID bracelet, bed and alarms, visiting hours, pain management, procedures, bathroom and other care routines, personal items, smoking policy, room service/diet, and visiting hours. Information on how to activate the Rapid Response Team has been discussed. Patient/Family are encouraged to report perceived risks to care and to ask questions if they do not understand what they are told or what they should do.
--- NOTE | 2025-02-15 10:32 | P.HP_ITS ---
H&P: HPI History of Present Illness Date/Time: 02/15/25 10:32 Chief Complaint: Abdominal pain Narrative: 84 years old male with history of hypertension, hyperlipidemia, colon cancer current taking daily chemotherapy was admitted through the emergency room with complaints of having abdominal pain since yesterday evening. Patient denies any nausea or vomiting. Patient denies any chest pain or shortness of breath. Workup in the ER shows patient has small bowel obstruction. NG tube was placed and IV fluids were given. Motion will use for pain medication. Patient was transferred to floor for further evaluation treatment. At present time patient is lying comfortably in the bed. NG is in place. Patient denies any complaints. Surgical consult ordered. 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 Leung. Cholelithiasis Bilateral inguinal hernia Achilles tendon tear Surgical History Surgical History Hx of laparoscopy 09/06/24 1. Laparoscopic removal of retained gallstone 2. Laparoscopic peritoneal biopsy 3. Laparoscopic adhesiolysis Dr. Graham Hx laparoscopic cholecystectomy 02/09/23 Status post dilation of urethral narrowing 11/03/23 History of cardiac catheterization 07/2022 with findings of coronary artery disease with recommendation of medical therapy due to high risk for PCI, on dual anti-platelet therapy History of lithotripsy (04/15/19) History of partial colectomy (04/09/09) Laparoscopic sigmoid colectomy for sigmoid adenocarcinoma. History of colonoscopy with polypectomy History of bilateral inguinal hernia repair (05/30/16) History of Achilles tendon repair (11/29/14) Right. History of colon resection (04/23/22) Hand assisted laparoscopic right hemicolectomy with ileocolic anastomosis, small bowel resection with side to side anastomosis, and extensive adhesiolysis. Family History Family History Sibling Throat cancer Other Family history non-contributory Social History Social History Social History: Patient smoked 1/2ppd x 20yrs but quit 45yrs ago. Hx of heavy alcohol use when he was young but no alcohol currently. No hx of drug use including IVDU. Lives at home with his . No pets. Surrogate medical decision maker: Theodore Bryant (son). Code status: Full code. Smoking packs per day: 0.5 Smoking cigarettes per day: 10.0 Years smoked: 20 Smoking pack-years: 10.00 Smoking status: Former smoker Second hand tobacco smoke exposure: No Additional smoking assessment comments: SON STATES PT STOPPED SMOKING ABOUT 45YRS AGO Alcohol intake: former Drinks per week: 1 Alcohol use details: RARELY - FEW TIMES A YEAR Substance use: never Substance use type: does not use Lack of Transportation: No Lack of Food: Never True Current Housing: I Have Housing Concerned About Future Housing: No Difficulty Paying Gas/Electric Bills: No Difficulty Paying for Meds: No Currently Unemployed: No Education: Decline to Answer Difficulty w/ Childcare or Family Care: No Living arrangements: with family Additional living arrangements comments: Occupation/Education: retired 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 Spiritual care concerns: No Meds Home Medications and Allergies Home Medications ?Medication ?Instructions ?Recorded ?Confirmed ?Type clopidogrel 75 mg tablet 75 mg PO DAILY 01/20/2301/22 History Held on 09/07/24. Instructions: Resume on 09/08/24. May resume clopidogrel tomorrow on 09/08/24 rosuvastatin 20 mg tablet 20 mg PO DAILY 01/20/2301/22 History metoprolol succinate 50 mg 50 mg PO DAILY 02/06/23 History tablet,extended release 24 hr tamsulosin 0.4 mg capsule See Rx Instructions .Route 1 04/13/22 02/15/25 Rx .COMPLEX #90 caps triamcinolone acetonide 0.1 % 1 applic topical BID #80 grams 08/04/24 02/15/25 Rx topical cream fruquintinib 5 mg capsule 5 mg PO .COMPLEX Chemotherap y 08/23/24 02/15/25 History (Fruzaqla) midodrine 2.5 mg tablet 5 mg (2 x 2.5 mg) PO TID #18 0 tabs 08/30/24 02/15/25 Rx Allergies Allergy/AdvReac Type Severity Reaction Status Date / Time No Known Allergies Allergy Unknown Verified 02/15/25 09:40 Vital Signs Vital Signs - 24 hr 02/14/25 21:51 02/14/25 22:55 02/14/25 23:01 Temperature 36.4 C L Pulse Rate 63 61 62 Respiratory Rate 16 14 17 Blood Pressure 168/91 H 185/95 H 153/95 H Pulse Oximetry 100 96 98 Oxygen Delivery Room Air 02/14/25 23:16 02/14/25 23:31 02/14/25 23:46 Temperature Pulse Rate 58 L 56 L 56 L Respiratory Rate 13 14 14 Blood Pressure 155/88 H 166/90 H 167/91 H Pulse Oximetry 97 98 98 Oxygen Delivery 02/15/25 00:01 02/15/25 01:01 02/15/25 01:16 Temperature Pulse Rate 69 52 L 55 L Respiratory Rate 19 12 12 Blood Pressure 153/103 H 173/91 H 195/93 H Pulse Oximetry 99 100 Oxygen Delivery 02/15/25 01:31 02/15/25 02:26 02/15/25 03:00 Temperature Pulse Rate 54 L 86 60 Respiratory Rate 13 20 12 Blood Pressure 173/92 H 171/101 H 186/105 H Pulse Oximetry 100 99 100 Oxygen Delivery 02/15/25 03:30 02/15/25 04:00 02/15/25 07:19 Temperature Pulse Rate 60 60 62 Respiratory Rate 14 16 14 Blood Pressure 157/97 H 151/96 H 167/93 H Pulse Oximetry 100 99 99 Oxygen Delivery 02/15/25 08:10 02/15/25 08:35 Temperature 36.2 C L Pulse Rate 65 62 Respiratory Rate 16 17 Blood Pressure 156/94 H 167/88 H Pulse Oximetry 99 100 Oxygen Delivery Exam Narrative: GENERAL: Well appearing, well-nourished, non-toxic, in no acute distress. HEAD: Normocephalic, atraumatic. NECK: Supple. No adenopathy, no masses. RESPIRATORY: Airway patent, respirations nonlabored. Clear to auscultation bilaterally, no rales, rhonchi, wheezing. CARDIOVASCULAR: Regular rate and rhythm without murmurs, rubs, or gallops. Peripheral pulses 2+ and equal bilaterally. ABDOMINAL: Soft, mild generalized tenderness with palpation, decreased bowel sounds. NG in place MUSCULOSKELETAL: Moves all extremities. Strength/ROM intact without gross deformities. SKIN: Warm, dry, normal color. No rashes. NEURO: A&O X3. Speech clear. Cranial nerves II-XII intact. No ataxic movements. PSYCHIATRIC: Appropriate mood and affect. Normal interaction. H&P: Results Labs Labs: Short CBC 02/14/25 Range/Units 23:25 WBC 6.0 (4.5-10.0) K/mm3 Hgb 12.9 L (14.0-18.0) g/dL Hct 38.5 L (42.0-52.0) % Plt Count 185 (150-375) k/mm3 BMP 02/14/25 23:25 Sodium 137 Potassium 4.1 Chloride 105 Carbon Dioxide 25 BUN 23 H D Creatinine 0.77 Glucose 111 H Calcium 9.3 Liver Function 02/14/25 Range/Units 23:25 Total Bilirubin 1.1 (0.2-1.3) mg/dL AST 110 H (17-59) U/L ALT 108 H (6-50) U/L Alkaline Phosphatase 91 (38-126) U/L Albumin 4.3 (3.5-5.1) g/dL Urine 02/15/25 Range/Units 00:04 Urine Color Yellow (Yellow) Urine Appearance Clear (Clear) Urine pH 7.0 (5.0-9.0) Ur Specific [place] 1.014 (1.001-1.035) Urine Protein Negative (Negative) mg/dL Urine Glucose (UA) Negative (Negative) mg/dL Assessment and Plan Assessment and plan (1) SBO (small bowel obstruction): Code(s): K56.609 - Unspecified intestinal obstruction, unspecified as to partial versus complete obstruction Status: Acute Assessment and Plan: Keep patient NPO. NG tube and IV fluids. Surgical evaluation. (2) History of colon cancer: Code(s): Z85.038 - Personal history of other malignant neoplasm of large intestine Status: Acute Assessment and Plan: Continue current treatment. (3) History of hypertension: Code(s): Z86.79 - Personal history of other diseases of the circulatory system Status: Acute Assessment and Plan: Monitor closely. (4) Kidney stones: Code(s): N20.0 - Calculus of kidney Status: Acute Assessment and Plan: Asymptomatic. Plan Plan is treatment patient flew a full admission. Patient is full code for now. DVT prophylaxis SCD boots. Quality VTE Prophylaxis VTE prophylaxis: mechanical ordered
--- NOTE | 2025-02-15 11:12 | PM.CNGS ---
Assessment and Plan Assessment and plan (1) SBO (small bowel obstruction): Code(s): K56.609 - Unspecified intestinal obstruction, unspecified as to partial versus complete obstruction Status: Acute Assessment and Plan: Patient presented to the emergency department late last night with complaints of lower abdominal pain. Onset earlier in the evening around 4:00 p.m. Denies any associated nausea or vomiting. Last bowel movement was 2 days ago. Patient is passing gas this morning. In the ER, CT demonstrated a small bowel obstruction with transition point near ileocecal colonic anastomosis from previous colon resection. Upon physical exam, patient does have good bowel sounds. Tenderness to lower abdomen especially to right lower quadrant. Multiple attempts at NG tube placement were made, but unsuccessful. being that patient does not have any nausea / vomiting and he has normal bowel sounds, we will defer NG tube placement at this time. Continue to treat conservatively with bowel rest. We will give Dulcolax suppository to attempt to stimulate the bowels from below. (2) Metastatic cancer: Code(s): C79.9 - Secondary malignant neoplasm of unspecified site Status: Acute Assessment and Plan: Patient has known recurrent metastatic colon cancer. He follows with an oncologist at [facility] and is currently undergoing treatment with Fruzaqla. unfortunately, a right lower lobe lobular 0.4 cm mass, suspicious for metastatic disease was picked up on CT of the abdomen. I informed patient and his son of this. They are scheduled to have a CT performed and follow up with oncologist next week. Will send patient home with CT disc upon discharge. Plan Discussed patient's case and plan of care with Dr. Graham. History of Present Illness Consult details Consult date: 02/15/25 Narrative: Patient is an 84 year old male with history of colon cancer status post right hemicolectomy in April 2022, cholecystectomy in January 2023, retained gallstone removal in August 2024 who we have been asked to see in surgical consultation for a small bowel obstruction. Patient is very well known to general surgery team. He was also diagnosed more recently with metastatic colon cancer. He is currently being treated with Fruzaqla and follows with oncology at [facility]. Patient's son at bedside provided most of history today. He states that patient started having abdominal pain around 4 pm yesterday. He was able to eat some soup later in the evening, however pain continued to increase in severity ultimately leading him to present to the ED. Upon arrival, labs demonstrated a normal white blood cell count and stable H&H. A CT was obtained and demonstrated a small bowel obstruction with probable transition point near the ileocecal colonic anastomosis in the right upper abdomen. nearby small bowel thickening, likely site of transition. Also noted was a right lower lobe lobulated 1.4 cm mass which is low density measuring 23 Hounsfield units. Concerning for metastatic disease. General surgery team was consulted for small bowel obstruction. NG tube placement was attempted several times, but unsuccessful. Upon interview, patient denies any nausea or vomiting. Last BM was two days ago. He did pass gas once this morning. Still complains of intermittent lower abdominal crampy pain. 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 Leung. Cholelithiasis Bilateral inguinal hernia Achilles tendon tear Surgical History Surgical History Hx of laparoscopy 09/06/24 1. Laparoscopic removal of retained gallstone 2. Laparoscopic peritoneal biopsy 3. Laparoscopic adhesiolysis Dr. Graham Hx laparoscopic cholecystectomy 02/09/23 Status post dilation of urethral narrowing 11/03/23 History of cardiac catheterization 07/2022 with findings of coronary artery disease with recommendation of medical therapy due to high risk for PCI, on dual anti-platelet therapy History of lithotripsy (04/15/19) History of partial colectomy (04/09/09) Laparoscopic sigmoid colectomy for sigmoid adenocarcinoma. History of colonoscopy with polypectomy History of bilateral inguinal hernia repair (05/30/16) History of Achilles tendon repair (11/29/14) Right. History of colon resection (04/23/22) Hand assisted laparoscopic right hemicolectomy with ileocolic anastomosis, small bowel resection with side to side anastomosis, and extensive adhesiolysis. Family History Family History Sibling Throat cancer Other Family history non-contributory Social History Social History Social History: Patient smoked 1/2ppd x 20yrs but quit 45yrs ago. Hx of heavy alcohol use when he was young but no alcohol currently. No hx of drug use including IVDU. Lives at home with his . No pets. Surrogate medical decision maker: Theodore Bryant (son). Code status: Full code. Smoking packs per day: 0.5 Smoking cigarettes per day: 10.0 Years smoked: 20 Smoking pack-years: 10.00 Smoking status: Former smoker Second hand tobacco smoke exposure: No Additional smoking assessment comments: SON STATES PT STOPPED SMOKING ABOUT 45YRS AGO Alcohol intake: former Drinks per week: 1 Alcohol use details: RARELY - FEW TIMES A YEAR Substance use: never Substance use type: does not use Lack of Transportation: No Lack of Food: Never True Current Housing: I Have Housing Concerned About Future Housing: No Difficulty Paying Gas/Electric Bills: No Difficulty Paying for Meds: No Currently Unemployed: No Education: Decline to Answer Difficulty w/ Childcare or Family Care: No Living arrangements: with family Additional living arrangements comments: Occupation/Education: retired 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 Spiritual care concerns: No Meds Home Medications and Allergies Home Medications ?Medication ?Instructions ?Recorded ?Confirmed ?Type clopidogrel 75 mg tablet 75 mg PO DAILY 01/20/23 02/15/25 History Held on 09/07/24. Instructions: Resume on 09/08/24. May resume clopidogrel tomorrow on 09/08/24 rosuvastatin 20 mg tablet 20 mg PO DAILY 01/20/23 02/15/25 History metoprolol succinate 50 mg 50 mg PO DAILY 02/06/23 02/15/25 History tablet,extended release 24 hr tamsulosin 0.4 mg capsule See Rx Instructions .Route 02/11/23 02/15/25 Rx .COMPLEX #90 caps triamcinolone acetonide 0.1 % 1 applic topical BID #80 grams 08/04/24 02/15/25 Rx topical cream fruquintinib 5 mg capsule 5 mg PO .COMPLEX Chemotherapy 08/23/24 02/15/25 History (Fruzaqla) midodrine 2.5 mg tablet 5 mg (2 x 2.5 mg) PO TID #180 tabs 08/30/24 02/15/25 Rx Allergies Allergy/AdvReac Type Severity Reaction Status Date / Time No Known Allergies Allergy Unknown Verified 02/15/25 09:40 Vital Signs Vital Signs - 24 hr 02/14/25 21:51 02/14/25 22:55 02/14/25 23:01 Temperature 97.5 F L Pulse Rate 63 61 62 Respiratory Rate 16 14 17 Blood Pressure 168/91 H 185/95 H 153/95 H Pulse Oximetry 100 96 98 Oxygen Delivery Room Air 02/14/25 23:16 02/14/25 23:31 02/14/25 23:46 Temperature Pulse Rate 58 L 56 L 56 L Respiratory Rate 13 14 14 Blood Pressure 155/88 H 166/90 H 167/91 H Pulse Oximetry 97 98 98 Oxygen Delivery 02/15/25 00:01 02/15/25 01:01 02/15/25 01:16 Temperature Pulse Rate 69 52 L 55 L Respiratory Rate 19 12 12 Blood Pressure 153/103 H 173/91 H 195/93 H Pulse Oximetry 99 100 Oxygen Delivery 02/15/25 01:31 02/15/25 02:26 02/15/25 03:00 Temperature Pulse Rate 54 L 86 60 Respiratory Rate 13 20 12 Blood Pressure 173/92 H 171/101 H 186/105 H Pulse Oximetry 100 99 100 Oxygen Delivery 02/15/25 03:30 02/15/25 04:00 02/15/25 07:19 Temperature Pulse Rate 60 60 62 Respiratory Rate 14 16 14 Blood Pressure 157/97 H 151/96 H 167/93 H Pulse Oximetry 100 99 99 Oxygen Delivery 02/15/25 08:10 02/15/25 08:35 Temperature 97.2 F L Pulse Rate 65 62 Respiratory Rate 16 17 Blood Pressure 156/94 H 167/88 H Pulse Oximetry 99 100 Oxygen Delivery Exam Const: General: comfortable and no acute distress Eyes: General: appearance normal, both eyes and all related structures Resp: Effort & Inspection: normal respiratory effort Cardio: Rate: regular rate GI: Inspection: non-distended GI Palp: Yes Soft to palpation, Yes Tenderness to palpation present (GI) (lower abdomen juan r RLQ) and Yes Guarding due to palpation present (GI) (RLQ) Auscultation: normal bowel sounds Rectal Exam: deferred Extrem: General: normal to inspection Psych: Mental Status: mental status grossly normal Results Labs 02/14/25 23:25 02/14/25 23:25 Labs: Abnormal lab results 02/14/25 02/15/25 Range/Units 23: 00:04 RBC 3.80 L (4.6-6.20) M/mm3 Hgb 12.9 L (14.0-18.0) g/dL Hct 38.5 L (42.0-52.0) % MCV 101.3 H (80-100) fl RDW 15.5 H (11.5-14.5) % BUN 23 H D (9-20) mg/dL Glucose 111 H (65-110) mg/dL AST 110 H (17-59) U/L ALT 108 H (6-50) U/L Ur Blood (Man) 2+ H (Negative) Urine RBC 51-100 H (0-2) /hpf Diabetes panel 02/14/25 Range/Units 23:25 Sodium 137 (137-145) mmol/L Potassium 4.1 (3.4-5.0) mmol/L Chloride 105 (98-107) mmol/L Carbon Dioxide 25 (22-30) mmol/L BUN 23 H D (9-20) mg/dL Creatinine 0.77 (0.7-1.3) mg/dL Glucose 111 H (65-110) mg/dL Calcium 9.3 (8.4-10.2) mg/dL AST 110 H (17-59) U/L ALT 108 H (6-50) U/L Alkaline Phosphatase 91 (38-126) U/L Total Protein 8.1 (6.3-8.2) g/dL Albumin 4.3 (3.5-5.1) g/dL Calcium panel 02/14/25 Range/Units 23:25 Calcium 9.3 (8.4-10.2) mg/dL Albumin 4.3 (3.5-5.1) g/dL Pituitary panel 02/14/25 Range/Units 23:25 Sodium 137 (137-145) mmol/L Potassium 4.1 (3.4-5.0) mmol/L Chloride 105 (98-107) mmol/L Carbon Dioxide 25 (22-30) mmol/L BUN 23 H D (9-20) mg/dL Creatinine 0.77 (0.7-1.3) mg/dL Glucose 111 H (65-110) mg/dL Calcium 9.3 (8.4-10.2) mg/dL Adrenal panel 02/14/ Range/Units 23:25 Sodium 137 (137-145) mmol/L Potassium 4.1 (3.4-5.0) mmol/L Chloride 105 (98-107) mmol/L Carbon Dioxide 25 (22-30) mmol/L BUN 23 H D (9-20) mg/dL Creatinine 0.77 (0.7-1.3) mg/dL Glucose 111 H (65-110) mg/dL Calcium 9.3 (8.4-10.2) mg/dL Total Bilirubin 1.1 (0.2-1.3) mg/dL AST 110 H (17-59) U/L ALT 108 H (6-50) U/L Alkaline Phosphatase 91 (38-126) U/L Total Protein 8.1 (6.3-8.2) g/dL Albumin 4.3 (3.5-5.1) g/dL All other labs normal.
[2025-02-15] MEDS: LACTATED RINGERS 1,000 ML 83 ML IV CONT (15:55)
[2025-02-15] MEDS: BISACODYL 10 MG SUPPOSITORY RECTAL (15:56)
[2025-02-16] MEDS: LACTATED RINGERS 1,000 ML 83 ML IV CONT ×2 (03:46→16:03)
[2025-02-16 04:34] LABS: Hematocrit 34.7 % (42.0-52.0); Hemoglobin 11.6 g/dL (14.0-18.0); Mean Corpuscular HGB Conc 33.4 g/dl (32-36); Mean Corpuscular Hemoglobin 33.9 pg (26-34); Mean Corpuscular Volume 101.5 fl (80-100); Platelet Count Result 156 k/mm3 (150-375); Red Blood Count 3.42 M/mm3 (4.6-6.20); White Blood Count 4.1 K/mm3 (4.5-10.0)
[2025-02-16 05:04] LABS: Anion Gap 5 mmol/L (4-12); Blood Urea Nitrogen 18 mg/dL (9-20); Calcium 8.7 mg/dL (8.4-10.2); Carbon Dioxide 22 mmol/L (22-30); Chloride 105 mmol/L (98-107); Estimated CRCL calculation 58 ml/min; Estimated Glomerular Filt Rate > 60; Glucose 93 mg/dL (65-110); Potassium 4.0 mmol/L (3.4-5.0); Sodium 132 mmol/L (137-145)
[2025-02-16 05:20] VITALS: BP 111/67; PULSE 57; RESP 18; TEMP 36.5; O2SAT 96
--- NOTE | 2025-02-16 09:57 | PM.IMPN ---
Progress Note: A&P Assessment and Plan (1) SBO (small bowel obstruction): Code(s): K56.609 - Unspecified intestinal obstruction, unspecified as to partial versus complete obstruction Status: Acute Assessment and Plan: Keep patient NPO. IV fluids. Surgical evaluation noted. (2) History of colon cancer: Code(s): Z85.038 - Personal history of other malignant neoplasm of large intestine Status: Acute Assessment and Plan: Continue current treatment. (3) History of hypertension: Code(s): Z86.79 - Personal history of other diseases of the circulatory system Status: Acute Assessment and Plan: Monitor closely. (4) Kidney stones: Code(s): N20.0 - Calculus of kidney Status: Acute Assessment and Plan: Asymptomatic. Plan Plan is treatment patient flew a full admission. Patient is full code for now. DVT prophylaxis SCD boots. Subjective Date/time seen: 02/16/25 09:57 Interval history: Patient was seen during the morning rounds today. No new overnight complaints. Mild abdominal pain. No nausea or vomiting. Review of Systems Review of Systems: All systems reviewed & are unremarkable except as noted in HPI and below (the history and physical examination.) Exam Narrative: GENERAL: Well appearing, well-nourished, non-toxic, in no acute distress. HEAD: Normocephalic, atraumatic. NECK: Supple. No adenopathy, no masses. RESPIRATORY: Airway patent, respirations nonlabored. Clear to auscultation bilaterally, no rales, rhonchi, wheezing. CARDIOVASCULAR: Regular rate and rhythm without murmurs, rubs, or gallops. Peripheral pulses 2+ and equal bilaterally. ABDOMINAL: Soft, mild generalized tenderness with palpation, decreased bowel sounds. MUSCULOSKELETAL: Moves all extremities. Strength/ROM intact without gross deformities. SKIN: Warm, dry, normal color. No rashes. NEURO: A&O X3. Speech clear. Cranial nerves II-XII intact. No ataxic movements. PSYCHIATRIC: Appropriate mood and affect. Normal interaction. Objective Data Vital Signs Vital Signs: Vital Signs - 24 hr 02/15/25 16:00 02/15/25 20:44 02/15/25 21:20 Temperature 36.4 C 36.3 C L Pulse Rate 64 63 Respiratory Rate 17 16 Blood Pressure 162/82 H 131/78 Pulse Oximetry 100 99 Oxygen Delivery Room Air 02/16/25 05:20 Temperature 36.5 C Pulse Rate 57 L Respiratory Rate 18 Blood Pressure 111/67 Pulse Oximetry 96 Oxygen Delivery Intake/Output Intake/Output: Intake & Output 02/13/25 02/14/25 02/15/25 02/16/25 23:59 23:59 23:59 23:59 Intake Total 1000 983.6 Output Total 200 Balance 1000 783.6 Meds/Results Medications: Active Medications Generic Name Dose Route Start Last Admin Trade Name Freq PRN Reason Stop Dose Admin Acetaminophen 650 mg 02/15/25 06:56 Acetaminophen 325 Mg Tablet PO Q4H PRN Mild Pain (1-3) or Fever Lactated Ringer's 1,000 mls @ 83 mls/hr 02/15/25 07:00 02/16/25 03:46 Lr - Lactated Ringers Iv IV CONT 83 mls/hr .[id number] CORINNE Administration Morphine Sulfate 2 mg 02/15/25 06:56 02/15/25 15:55 Morphine Sulfate (*Crx) 4 Mg/Ml Inj IV PUSH 2 mg Q2H PRN Administration Pain Rated 7-10 Radiology Results: ITS Impressions Abdomen/Pelvis CT 02/15/25 07:36 IMPRESSION: 1. Small bowel obstruction with probable transition point near the ileocecal colonic anastomosis in the right upper abdomen. There is nearby small bowel thickening, likely site of transition. 2: Right lower lobe lobulated 1.4 cm mass which is low density measuring 23 Hounsfield units. Given the clinical history of colon carcinoma this likely represents metastatic disease. 3: Nonobstructing left nephrolithiasis. Abdomen X-Ray 02/16/25 08:18 Impression: 1. Probable small bowel obstruction. The findings appear unchanged compared to the previous exam Labs Labs: Laboratory Results - last 24 hr 02/16/25 04:14 WBC 4.1 L RBC 3.42 L Hgb 11.6 L Hct 34.7 L MCV 101.5 H MCH 33.9 MCHC 33.4 RDW 15.3 H Plt Count 156 MPV 8.8 Sodium 132 L Potassium 4.0 Chloride 105 Carbon Dioxide 22 Anion Gap 5 BUN 18 Creatinine 0.76 Estim Creat Clear Calc 58 Estimated GFR > 60 Glucose 93 Calcium 8.7 Quality VTE Prophylaxis VTE prophylaxis: mechanical ordered
--- NOTE | 2025-02-16 12:17 | PM.PNGS ---
Progress Note: A&P Assessment and Plan (1) SBO (small bowel obstruction): Code(s): K56.609 - Unspecified intestinal obstruction, unspecified as to partial versus complete obstruction Status: Acute Assessment and Plan: exam largely benign, BM this am, will try clears, encourage OOB Subjective Subjective Date/Time Seen: 02/16/25 12:17 Interval history: liquid BM this am, some flatus, no N/V Review of Systems Review of Systems: All systems reviewed & are unremarkable except as noted in HPI and below Exam Const: General: cooperative, comfortable and no acute distress Resp: Auscultation: clear to auscultation bilaterally Cardio: Rate: regular rate Rhythm: regular rhythm GI: Inspection: normal to inspection and distended GI Palp: No abdominal tenderness and Yes Soft to palpation Objective Data Vital Signs Vital Signs: Vital Signs - 24 hr 02/15/25 16:00 02/15/25 20:44 02/15/25 21:20 Temperature 36.4 C 36.3 C L Pulse Rate 64 63 Respiratory Rate 17 16 Blood Pressure 162/82 H 131/78 Pulse Oximetry 100 99 Oxygen Delivery Room Air 02/16/25 05:20 02/16/25 08:00 Temperature 36.5 C Pulse Rate 57 L Respiratory Rate 18 Blood Pressure 111/67 Pulse Oximetry 96 Oxygen Delivery Room Air Intake/Output Intake/Output: Intake & Output 02/13/25 02/14/25 02/15/25 02/16/25 23:59 23:59 23:59 23:59 Intake Total 1000 983.6 Output Total 200 Balance 1000 783.6 Meds/Results Medications: Active Medications Generic Name Dose Route Start Last Admin Trade Name Freq PRN Reason Stop Dose Admin Acetaminophen 650 mg 02/15/25 06:56 Acetaminophen 325 Mg Tablet PO Q4H PRN Mild Pain (1-3) or Fever Lactated Ringer's 1,000 mls @ 83 mls/hr 02/15/25 07:00 02/16/25 03:46 Lr - Lactated Ringers Iv IV CONT 83 mls/hr .Q12H3M [facility] Administration Morphine Sulfate 2 mg 02/15/25 06:56 02/15/25 15:55 Morphine Sulfate (*Crx) 4 Mg/Ml Inj IV PUSH 2 mg Q2H PRN Administration Pain Rated 7-10 Radiology Results: ITS Impressions Abdomen/Pelvis CT 02/15/25 07:36 IMPRESSION: 1. Small bowel obstruction with probable transition point near the ileocecal colonic anastomosis in the right upper abdomen. There is nearby small bowel thickening, likely site of transition. 2: Right lower lobe lobulated 1.4 cm mass which is low density measuring 23 Hounsfield units. Given the clinical history of colon carcinoma this likely represents metastatic disease. 3: Nonobstructing left nephrolithiasis. Abdomen X-Ray 02/16/25 08:18 Impression: 1. Probable small bowel obstruction. The findings appear unchanged compared to the previous exam Labs Labs: Laboratory Results - last 24 hr 02/16/25 04:14 WBC 4.1 L RBC 3.42 L Hgb 11.6 L Hct 34.7 L MCV 101.5 H MCH 33.9 MCHC 33.4 RDW 15.3 H Plt Count 156 MPV 8.8 Sodium 132 L Potassium 4.0 Chloride 105 Carbon Dioxide 22 Anion Gap 5 BUN 18 Creatinine 0.76 Estim Creat Clear Calc 58 Estimated GFR > 60 Glucose 93 Calcium 8.7
[2025-02-16 14:00] VITALS: BP 123/80; PULSE 64; RESP 18; TEMP 36.5; O2SAT 97
[2025-02-16 21:35] VITALS: BP 131/75; PULSE 58; RESP 16; TEMP 36.7; O2SAT 98
[2025-02-17] MEDS: LACTATED RINGERS 1,000 ML 83 ML IV CONT ×2 (04:11→16:17)
[2025-02-17 05:27] VITALS: BP 146/77; PULSE 55; RESP 16; TEMP 36.5; O2SAT 98
[2025-02-17 08:06] LABS: Hematocrit 35.6 % (42.0-52.0); Hemoglobin 12.1 g/dL (14.0-18.0); Immature Granulocyte Percent A 0.2 % (0-0.5); Lymphocytes Absolute Auto 1.84 K/mm3 (0.9-3.2); Mean Corpuscular HGB Conc 34.0 g/dl (32-36); Mean Corpuscular Hemoglobin 34.5 pg (26-34); Mean Corpuscular Volume 101.4 fl (80-100); Nucleated Red Blood Cells Absolute Auto 0.000 K/mm3 (0.0-0.012); Nucleated Red Blood Cells Perc 0.0 % (0.0-0.2); Platelet Count Result 167 k/mm3 (150-375); Red Blood Count 3.51 M/mm3 (4.6-6.20); White Blood Count 4.1 K/mm3 (4.5-10.0)
[2025-02-17 08:34] LABS: Alanine Aminotransferase 75 U/L (6-50); Albumin Level 3.8 g/dL (3.5-5.1); Alkaline Phosphatase 108 U/L (38-126); Anion Gap 3 mmol/L (4-12); Aspartate Amino Transferase 53 U/L (17-59); Bilirubin,Total 2.5 mg/dL (0.2-1.3); Blood Urea Nitrogen 15 mg/dL (9-20); Calcium 8.6 mg/dL (8.4-10.2); Carbon Dioxide 25 mmol/L (22-30); Chloride 108 mmol/L (98-107); Estimated CRCL calculation 51 ml/min; Estimated Glomerular Filt Rate > 60; Glucose 94 mg/dL (65-110); Potassium 3.9 mmol/L (3.4-5.0); Sodium 136 mmol/L (137-145); Total Protein 7.2 g/dL (6.3-8.2)
[2025-02-17 08:38] VITALS: PULSE 55
[2025-02-17] MEDS: TAMSULOSIN HCL 0.4 MG CAPSULE BY MOUTH (08:38)
[2025-02-17] MEDS: ROSUVASTATIN 20 MG TABLET PO (08:38)
[2025-02-17] MEDS: METOPROLOL SUCCINATE EXT REL 50 MG TABCR PO (08:38)
--- NOTE | 2025-02-17 09:29 | P.PNIM_ITS ---
Progress Note: A&P Assessment and Plan (1) SBO (small bowel obstruction): Code(s): K56.609 - Unspecified intestinal obstruction, unspecified as to partial versus complete obstruction Status: Acute Assessment and Plan: Gradually improving. Clear liquid diet. IV fluids. Surgical evaluation noted. (2) History of colon cancer: Code(s): Z85.038 - Personal history of other malignant neoplasm of large intestine Status: Acute Assessment and Plan: Continue current treatment. (3) History of hypertension: Code(s): Z86.79 - Personal history of other diseases of the circulatory system Status: Acute Assessment and Plan: Monitor closely. (4) Kidney stones: Code(s): N20.0 - Calculus of kidney Status: Acute Assessment and Plan: Asymptomatic. Plan Plan is to continue current treatment. Increase activity as tolerated. Clear liquid diet. Patient is full code for now. DVT prophylaxis SCD boots. Subjective Date/time seen: 02/17/25 09:29 Interval history: Patient was seen during the morning rounds today. No new overnight complaints. Feeling much better Mild abdominal pain. No nausea or vomiting. Exam Narrative: GENERAL: Well appearing, well-nourished, non-toxic, in no acute distress. HEAD: Normocephalic, atraumatic. NECK: Supple. No adenopathy, no masses. RESPIRATORY: Airway patent, respirations nonlabored. Clear to auscultation bilaterally, no rales, rhonchi, wheezing. CARDIOVASCULAR: Regular rate and rhythm without murmurs, rubs, or gallops. Peripheral pulses 2+ and equal bilaterally. ABDOMINAL: Soft, mild generalized tenderness with palpation, decreased bowel sounds. MUSCULOSKELETAL: Moves all extremities. Strength/ROM intact without gross deformities. SKIN: Warm, dry, normal color. No rashes. NEURO: A&O X3. Speech clear. Cranial nerves II-XII intact. No ataxic movements. PSYCHIATRIC: Appropriate mood and affect. Normal interaction. Objective Data Vital Signs Vital Signs: Vital Signs - 24 hr 02/16/25 14:00 02/16/25 20:00 02/16/25 21:35 Temperature 36.5 C 36.7 C Pulse Rate 64 58 L Respiratory Rate 18 16 Blood Pressure 123/80 131/75 Pulse Oximetry 97 98 Oxygen Delivery Room Air 02/17/25 05:27 02/17/25 08:38 Temperature 36.5 C Pulse Rate 55 L 55 L Respiratory Rate 16 Blood Pressure 146/77 H Pulse Oximetry 98 Oxygen Delivery Intake/Output Intake/Output: Intake & Output 02/14/25 02/15/25 02/16/25 02/17/25 23:59 23:59 23:59 23:59 Intake Total 1000 3183.6 2000 Output Total 200 Balance 1000 2983.6 1999 Meds/Results Medications: Active Medications Generic Name Dose Route Start Last Admin Trade Name Freq PRN Reason Stop Dose Admin Acetaminophen 650 mg 02/15/25 06:56 Acetaminophen 325 Mg Tablet PO Q4H PRN Mild Pain (1-3) or Fever Enoxaparin Sodium 40 mg 02/18/25 09:00 Enoxaparin 40 Mg/0.4 Ml Syringe SUB-Q DAILY [facility] Lactated Ringer's 1,000 mls @ 83 mls/hr 02/15/25 07:00 02/17/25 04:11 Lr - Lactated Ringers Iv IV CONT 83 mls/hr .Q12H3M [facility] Administration Metoprolol Succinate 50 mg 02/17/25 09:00 02/17/25 08:38 Metoprolol Succinate Ext Rel 50 Mg Tabcr PO 50 mg DAILY [facility] [place] Administration Midodrine 5 mg 02/17/25 09:00 02/17/25 08:45 Midodrine Hcl 2.5 Mg Tablet PO Not Given TID [facility] Morphine Sulfate 2 mg 02/15/25 06:56 02/15/25 15:55 Morphine Sulfate (*Crx) 4 Mg/Ml Inj IV PUSH 2 mg Q2H PRN Administration Pain Rated 7-10 Rosuvastatin Calcium 20 mg 02/17/25 09:00 02/17/25 08:38 Rosuvastatin 20 Mg Tablet PO 20 mg DAILY [facility] Administration Tamsulosin HCl 0.4 mg 02/17/25 09:00 02/17/25 08:38 Tamsulosin Hcl 0.4 Mg Capsule BY MOUTH 0.4 mg DAILY [facility] Administration Radiology Results: ITS Impressions Abdomen/Pelvis CT 02/15/25 07:36 IMPRESSION: 1. Small bowel obstruction with probable transition point near the ileocecal colonic anastomosis in the right upper abdomen. There is nearby small bowel thickening, likely site of transition. 2: Right lower lobe lobulated 1.4 cm mass which is low density measuring 23 Hounsfield units. Given the clinical history of colon carcinoma this likely represents metastatic disease. 3: Nonobstructing left nephrolithiasis. Abdomen X-Ray 02/16/25 08:18 Impression: 1. Probable small bowel obstruction. The findings appear unchanged compared to the previous exam Labs Labs: Laboratory Results - last 24 hr 02/17/25 08:01 WBC 4.1 L RBC 3.51 L Hgb 12.1 L Hct 35.6 L MCV 101.4 H MCH 34.5 H MCHC 34.0 RDW 15.0 H Plt Count 167 MPV 8.7 Immature Gran % (Auto) 0.2 Neut % (Auto) 41.3 L Lymph % (Auto) 44.9 H Bradford % (Auto) 9.5 H Eos % (Auto) 3.4 Baso % (Auto) 0.7 Lymph # (Auto) 1.84 Bradford # (Auto) 0.4 Eos # (Auto) 0.1 Baso # (Auto) 0.0 Abs Immat Gran (auto) 0.01 Absolute Neuts (auto) 1.7 Absolute Nucleated RBC 0.000 Nucleated RBC % 0.0 Sodium 136 L Potassium 3.9 Chloride 108 H Carbon Dioxide 25 Anion Gap 3 L BUN 15 Creatinine 0.86 Estim Creat Clear Calc 51 Estimated GFR > 60 Glucose 94 Calcium 8.6 Total Bilirubin 2.5 H AST 53 ALT 75 H Alkaline Phosphatase 108 Total Protein 7.2 Albumin 3.8
--- NOTE | 2025-02-17 10:38 | PM.PNGS ---
Progress Note: A&P Assessment and Plan (1) SBO (small bowel obstruction): Code(s): K56.609 - Unspecified intestinal obstruction, unspecified as to partial versus complete obstruction Status: Acute Assessment and Plan: patient tolerating clear liquid diet without any nausea or vomiting. He does endorse some lower abdominal intermittent pain. BM+. Will advance to full liquid diet and continue to monitor with serial abdominal exams and labs. Encourage OOB. Plan Discussed patient's case and plan of care with Dr. Willoughby. Subjective Subjective Date/Time Seen: 02/17/25 10:38 Patient reports: no new complaints, still having pain (intermittent lower abdominal cramps), flatus, bowel movement and afebrile Interval history: Patient doing well today. Denies any nausea or vomiting with clear liquid diet. He does still endorse some intermittent lower abdominal crampy pain. Abdominal x-ray today demonstrated no acute abnormalities. Bowel gas pattern unremarkable. Exam GI: Inspection: non-distended GI Palp: Yes Soft to palpation, Yes Tenderness to palpation present (GI) ( Diffusely across lower abdomen.) and Yes Guarding due to palpation present (GI) ( Right lower quadrant) Auscultation: normal bowel sounds Objective Data Vital Signs Vital Signs: Vital Signs - 24 hr 02/16/25 14:00 02/16/25 20:00 02/16/25 21:35 Temperature 97.7 F 98.0 F Pulse Rate 64 58 L Respiratory Rate 18 16 Blood Pressure 123/80 131/75 Pulse Oximetry 97 98 Oxygen Delivery Room Air 02/17/25 05:27 02/17/25 08:38 Temperature 97.7 F Pulse Rate 55 L 55 L Respiratory Rate 16 Blood Pressure 146/77 H Pulse Oximetry 98 Oxygen Delivery Intake/Output Intake/Output: Intake & Output 02/14/25 02/15/25 02/16/25 02/17/25 23:59 23:59 23:59 23:59 Intake Total 1000 3183.6 1999 Output Total 200 Balance 1000 2983.6 1999 Meds/Results Medications: Active Medications Generic Name Dose Route Start Last Admin Trade Name Freq PRN Reason Stop Dose Admin Acetaminophen 650 mg 02/15/25 06:56 Acetaminophen 325 Mg Tablet PO Q4H PRN Mild Pain (1-3) or Fever Enoxaparin Sodium 40 mg 02/17/25 09:00 Enoxaparin 40 Mg/0.4 Ml Syringe SUB-Q DAILY [facility] Lactated Ringer's 1,000 mls @ 83 mls/hr 02/15/25 07:00 02/17/25 04:11 Lr - Lactated Ringers Iv IV CONT 83 mls/hr .Q12H3M [facility] Administration Metoprolol Succinate 50 mg 02/17/25 09:00 02/17/25 08:38 Metoprolol Succinate Ext Rel 50 Mg Tabcr PO 50 mg DAILY [facility] Administration Morphine Sulfate 2 mg 02/15/25 06:56 02/15/25 15:55 Morphine Sulfate (*Crx) 4 Mg/Ml Inj IV PUSH 2 mg Q2H PRN Administration Pain Rated 7-10 Rosuvastatin Calcium 20 mg 02/17/25 09:00 02/17/25 08:38 Rosuvastatin 20 Mg Tablet PO 20 mg DAILY [facility] Administration Tamsulosin HCl 0.4 mg 02/17/25 09:00 02/17/25 08:38 Tamsulosin Hcl 0.4 Mg Capsule BY MOUTH 0.4 mg DAILY [facility] Administration Radiology Results: ITS Impressions Abdomen/Pelvis CT 02/15/25 07:36 IMPRESSION: 1. Small bowel obstruction with probable transition point near the ileocecal colonic anastomosis in the right upper abdomen. There is nearby small bowel thickening, likely site of transition. 2: Right lower lobe lobulated 1.4 cm mass which is low density measuring 23 Hounsfield units. Given the clinical history of colon carcinoma this likely represents metastatic disease. 3: Nonobstructing left nephrolithiasis. Abdomen X-Ray 02/17/25 10:32 Impression: 1. No acute abnormality. Labs Labs: Laboratory Results - last 24 hr 02/17/25 08:01 WBC 4.1 L RBC 3.51 L Hgb 12.1 L Hct 35.6 L MCV 101.4 H MCH 34.5 H MCHC 34.0 RDW 15.0 H Plt Count 167 MPV 8.7 Immature Gran % (Auto) 0.2 Neut % (Auto) 41.3 L Lymph % (Auto) 44.9 H Brooke % (Auto) 9.5 H Eos % (Auto) 3.4 Baso % (Auto) 0.7 Lymph # (Auto) 1.84 Brooke # (Auto) 0.4 Eos # (Auto) 0.1 Baso # (Auto) 0.0 Abs Immat Gran (auto) 0.01 Absolute Neuts (auto) 1.7 Absolute Nucleated RBC 0.000 Nucleated RBC % 0.0 Sodium 136 L Potassium 3.9 Chloride 108 H Carbon Dioxide 25 Anion Gap 3 L BUN 15 Creatinine 0.86 Estim Creat Clear Calc 51 Estimated GFR > 60 Glucose 94 Calcium 8.6 Total Bilirubin 2.5 H AST 53 ALT 75 H Alkaline Phosphatase 108 Total Protein 7.2 Albumin 3.8
[2025-02-17] MEDS: ENOXAPARIN 40 MG/0.4 ML SYRINGE SUB-Q (10:42)
[2025-02-17 14:30] VITALS: BP 134/76; PULSE 56; RESP 16; TEMP 36.1; O2SAT 99
--- NOTE | 2025-02-17 15:09 | WPDGICN ---
Assessment and Plan Assessment and plan (1) Abnormal CT of the abdomen: Code(s): R93.5 - Abnormal findings on diagnostic imaging of other abdominal regions, including retroperitoneum Status: Acute Assessment and Plan: The patient has favorable course after resolving a small-bowel obstruction. Imaging studies suggest a transition point around the area of the ileo colonic anastomosis. Since the patient is clinically stable, will plan on colonoscopy to review the anastomotic area this coming Thursday. Pressure ordered in chart. (2) Primary adenocarcinoma of ascending colon: Code(s): C18.2 - Malignant neoplasm of ascending colon Status: Acute GI Consult Note Consult date/time: 02/17/25 15:09 Reason for consult: Small-bowel obstruction HPI: Sterling Bryant is a 84 year old male with a history of advanced colorectal cancer, status post right hemicolectomy in April 2022. He is currently getting oral Fruquintinib. He started 1 day ago complaining of severe, in crescendo abdominal pain, and upon arrival, a CT scan showed evidence of small-bowel obstruction with the transition point near the ileocolonic anastomosis. In addition there was a 1.4 cm right lower lobe mass, suspicious for metastasis. The patient did well with conservative treatment, not needing nasogastric suction and is currently asymptomatic. This consultation was requested for the possibility of a colonoscopy with special attention to the anastomosis. Review of Systems Review of Systems: All systems reviewed & are unremarkable except as noted in HPI and below PMFSH Past Medical History Medical History Idiopathic stricture of urethra Coronary artery disease Aneurysm of infrarenal abdominal aorta Diverticulitis Colon cancer 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 Leung. Cholelithiasis Bilateral inguinal hernia Achilles tendon tear Surgical History Surgical History Hx of laparoscopy 09/06/24 1. Laparoscopic removal of retained gallstone 2. Laparoscopic peritoneal biopsy 3. Laparoscopic adhesiolysis Dr. Graham Hx laparoscopic cholecystectomy 02/09/23 Status post dilation of urethral narrowing 11/03/23 History of cardiac catheterization 07/2022 with findings of coronary artery disease with recommendation of medical therapy due to high risk for PCI, on dual anti-platelet therapy History of lithotripsy (04/15/19) History of partial colectomy (04/09/09) Laparoscopic sigmoid colectomy for sigmoid adenocarcinoma. History of colonoscopy with polypectomy History of bilateral inguinal hernia repair (05/30/16) History of Achilles tendon repair (11/29/14) Right. History of colon resection (04/23/22) Hand assisted laparoscopic right hemicolectomy with ileocolic anastomosis, small bowel resection with side to side anastomosis, and extensive adhesiolysis. Family History Family History Sibling Throat cancer Other Family history non-contributory Social History Social History Social History: Patient smoked 1/2ppd x 20yrs but quit 45yrs ago. Hx of heavy alcohol use when he was young but no alcohol currently. No hx of drug use including IVDU. Lives at home with his . No pets. Surrogate medical decision maker: Theodore Bryant (son). Code status: Full code. Smoking packs per day: 0.5 Smoking cigarettes per day: 10.0 Years smoked: 20 Smoking pack-years: 10.00 Smoking status: Former smoker Second hand tobacco smoke exposure: No Additional smoking assessment comments: SON STATES PT STOPPED SMOKING ABOUT 45YRS AGO Alcohol intake: former Drinks per week: 1 Alcohol use details: RARELY - FEW TIMES A YEAR Substance use: never Substance use type: does not use Lack of Transportation: No Lack of Food: Never True Current Housing: I Have Housing Concerned About Future Housing: No Difficulty Paying Gas/Electric Bills: No Difficulty Paying for Meds: No Currently Unemployed: No Education: Decline to Answer Difficulty w/ Childcare or Family Care: No Living arrangements: with family Additional living arrangements comments: Occupation/Education: retired 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 Spiritual care concerns: No Meds Home Medications and Allergies Home Medications ?Medication ?Instructions ?Recorded ?Confirmed ?Type clopidogrel 75 mg tablet 75 mg PO DAILY 01/20/23 02/15/25 History Held on 09/07/24. Instructions: Resume on 09/08/24. May resume clopidogrel tomorrow on 09/08/24 rosuvastatin 20 mg tablet 20 mg PO DAILY 01/20/23 02/15/25 History metoprolol succinate 50 mg 50 mg PO DAILY 02/06/23 02/15/25 History tablet,extended release 24 hr tamsulosin 0.4 mg capsule See Rx Instructions .Route 02/11/23 02/15/25 Rx .COMPLEX #90 caps triamcinolone acetonide 0.1 % 1 applic topical BID #80 grams 08/04/24 02/15/25 Rx topical cream fruquintinib 5 mg capsule 5 mg PO .COMPLEX Chemotherapy 08/23/24 02/15/25 History (Fruzaqla) midodrine 2.5 mg tablet 5 mg (2 x 2.5 mg) PO TID #180 tabs 08/30/24 02/15/25 Rx Allergies Allergy/AdvReac Type Severity Reaction Status Date / Time No Known Allergies Allergy Unknown Verified 02/15/25 09:40 Vital Signs Vital Signs - 24 hr 02/16/25 20:00 02/16/25 21:35 02/17/25 05:27 Temperature 98.0 F 97.7 F Pulse Rate 58 L 55 L Respiratory Rate 16 16 Blood Pressure 131/75 146/77 H Pulse Oximetry 98 98 Oxygen Delivery Room Air 02/17/25 08:38 02/17/25 08:40 Temperature Pulse Rate 55 L Respiratory Rate Blood Pressure Pulse Oximetry Oxygen Delivery Room Air Exam Const: General: cooperative and healthy appearing Resp: Effort & Inspection: normal respiratory effort and able to speak in complete sentences Auscultation: clear to auscultation bilaterally Cardio: Rate: regular rate Rhythm: regular rhythm GI: Inspection: normal to inspection GI Palp: No No hepatosplenomegaly present Auscultation: normal bowel sounds Rectal Exam: deferred Skin: General skin exam: normal color Psych: Appearance: grossly normal Mental Status: mental status grossly normal Results Labs 02/18/25 05:19 02/18/25 05:19 Labs: Short CBC 02/17/25 Range/Units 08:01 WBC 4.1 L (4.5-10.0) K/mm3 Hgb 12.1 L (14.0-18.0) g/dL Hct 35.6 L (42.0-52.0) % Plt Count 167 (150-375) k/mm3 [facility] 02/17/25 08:01 Sodium 136 L Potassium 3.9 Chloride 108 H Carbon Dioxide 25 BUN 15 Creatinine 0.86 Glucose 94 Calcium 8.6 Liver Function 02/17/25 Range/Units 08:01 Total Bilirubin 2.5 H (0.2-1.3) mg/dL AST 53 (17-59) U/L ALT 75 H (6-50) U/L Alkaline Phosphatase 108 (38-126) U/L Albumin 3.8 (3.5-5.1) g/dL
[2025-02-17 21:20] VITALS: BP 142/82; PULSE 53; RESP 16; TEMP 36.5; O2SAT 99
[2025-02-18] MEDS: LACTATED RINGERS 1,000 ML 83 ML IV CONT (04:22)
[2025-02-18 04:50] VITALS: BP 155/78; PULSE 56; RESP 16; TEMP 36.5; O2SAT 97
[2025-02-18 05:19] VITALS: BP 147/79
[2025-02-18 05:44] LABS: Hematocrit 33.5 % (42.0-52.0); Hemoglobin 11.2 g/dL (14.0-18.0); Mean Corpuscular HGB Conc 33.4 g/dl (32-36); Mean Corpuscular Hemoglobin 34.5 pg (26-34); Mean Corpuscular Volume 103.1 fl (80-100); Platelet Count Result 160 k/mm3 (150-375); Red Blood Count 3.25 M/mm3 (4.6-6.20); White Blood Count 3.5 K/mm3 (4.5-10.0)
[2025-02-18 06:07] LABS: Alanine Aminotransferase 69 U/L (6-50); Albumin Level 3.3 g/dL (3.5-5.1); Alkaline Phosphatase 97 U/L (38-126); Anion Gap 4 mmol/L (4-12); Aspartate Amino Transferase 60 U/L (17-59); Bilirubin,Total 1.6 mg/dL (0.2-1.3); Blood Urea Nitrogen 11 mg/dL (9-20); Calcium 8.3 mg/dL (8.4-10.2); Carbon Dioxide 23 mmol/L (22-30); Chloride 108 mmol/L (98-107); Estimated CRCL calculation 54 ml/min; Estimated Glomerular Filt Rate > 60; Glucose 87 mg/dL (65-110); Potassium 3.6 mmol/L (3.4-5.0); Sodium 135 mmol/L (137-145); Total Protein 6.5 g/dL (6.3-8.2)
[2025-02-18 08:49] VITALS: PULSE 56
[2025-02-18] MEDS: ROSUVASTATIN 20 MG TABLET PO (08:49)
[2025-02-18] MEDS: TAMSULOSIN HCL 0.4 MG CAPSULE BY MOUTH (08:49)
[2025-02-18] MEDS: ENOXAPARIN 40 MG/0.4 ML SYRINGE SUB-Q (08:49)
[2025-02-18] MEDS: METOPROLOL SUCCINATE EXT REL 50 MG TABCR PO (08:49)
--- NOTE | 2025-02-18 10:31 | P.PNGS_ITS ---
Progress Note: A&P Assessment and Plan (1) SBO (small bowel obstruction): Code(s): K56.609 - Unspecified intestinal obstruction, unspecified as to partial versus complete obstruction Status: Acute Assessment and Plan: resolving, exam benign, +bowel fxn, will advance to soft diet, await GI decision re: colonoscpy Subjective Subjective Date/Time Seen: 02/18/25 10:31 Interval history: feels good, +loose BMs, [place] FLD Review of Systems Review of Systems: All systems reviewed & are unremarkable except as noted in HPI and below Exam Const: General: cooperative, comfortable and no acute distress Resp: Auscultation: clear to auscultation bilaterally Cardio: Rate: regular rate Rhythm: regular rhythm GI: Inspection: normal to inspection and non-distended GI Palp: No abdominal tenderness and Yes Soft to palpation Objective Data Vital Signs Vital Signs: Vital Signs - 24 hr 02/17/25 14:30 02/17/25 21:20 02/18/25 04:50 Temperature 36.1 C L 36.5 C 36.5 C Pulse Rate 56 L 53 L 56 L Respiratory Rate 16 16 16 Blood Pressure 134/76 142/82 H 155/78 H Pulse Oximetry 99 99 97 02/18/25 05:19 02/18/25 08:49 Temperature Pulse Rate 56 L Respiratory Rate Blood Pressure 147/79 H Pulse Oximetry Intake/Output Intake/Output: Intake & Output 02/15/25 02/16/25 02/17/25 02/18/25 23:59 23:59 23:59 23:59 Intake Total 1000 3183.6 3890 1830 Output Total 200 Balance 1000 2983.6 3890 1830 Meds/Results Medications: Active Medications Generic Name Dose Route Start Last Admin Trade Name Freq PRN Reason Stop Dose Admin Acetaminophen 650 mg 02/15/25 06:56 Acetaminophen 325 Mg Tablet PO Q4H PRN Mild Pain (1-3) or Fever Bisacodyl 10 mg 02/18/25 15:00 Bisacodyl 5 Mg Tablet Ec PO 02/19/25 03:01 0300,1500,2100 [facility] Enoxaparin Sodium 40 mg 02/17/25 09:00 02/18/25 08:49 Enoxaparin 40 Mg/0.4 Ml Syringe SUB-Q 40 mg DAILY [facility] Administration Lactated Ringer's 1,000 mls @ 83 mls/hr 02/15/25 07:00 02/18/25 04:22 Lr - Lactated Ringers Iv IV CONT 83 mls/hr .Q12H3M [facility] Administration Metoprolol Succinate 50 mg 02/17/25 09:00 02/18/25 08:49 Metoprolol Succinate Ext Rel 50 Mg Tabcr PO 50 mg DAILY [facility] Administration Morphine Sulfate 2 mg 02/15/25 06:56 02/15/25 15:55 Morphine Sulfate (*Crx) 4 Mg/Ml Inj IV PUSH 2 mg Q2H PRN Administration Pain Rated 7-10 Polyethylene Glycol 119 gm 02/19/25 20:00 Polyethylene Glycol 3350 238 Gm Bottle PO 02/20/25 05:01 BID@0500,2000 [facility] Rosuvastatin Calcium 20 mg 02/17/25 09:00 02/18/25 08:49 Rosuvastatin 20 Mg Tablet PO 20 mg DAILY [facility] Administration Simethicone 160 mg 02/18/25 15:00 Simethicone 80 Mg Tab.Chew PO 02/19/25 03:01 0300,1500,2100 [facility] Tamsulosin HCl 0.4 mg 02/17/25 09:00 02/18/25 08:49 Tamsulosin Hcl 0.4 Mg Capsule BY MOUTH 0.4 mg DAILY [facility] Administration Radiology Results: ITS Impressions Abdomen/Pelvis CT 02/15/25 07:36 IMPRESSION: 1. Small bowel obstruction with probable transition point near the ileocecal colonic anastomosis in the right upper abdomen. There is nearby small bowel thickening, likely site of transition. 2: Right lower lobe lobulated 1.4 cm mass which is low density measuring 23 Hounsfield units. Given the clinical history of colon carcinoma this likely represents metastatic disease. 3: Nonobstructing left nephrolithiasis. Abdomen X-Ray 02/17/25 10:32 Impression: 1. No acute abnormality. Labs Labs: Laboratory Results - last 24 hr 02/18/25 05:19 WBC 3.5 L RBC 3.25 L Hgb 11.2 L Hct 33.5 L MCV 103.1 H MCH 34.5 H MCHC 33.4 RDW 14.9 H Plt Count 160 MPV 9.0 Sodium 135 L Potassium 3.6 Chloride 108 H Carbon Dioxide 23 Anion Gap 4 BUN 11 Creatinine 0.81 Estim Creat Clear Calc 54 Estimated GFR > 60 Glucose 87 Calcium 8.3 L Total Bilirubin 1.6 H AST 60 H ALT 69 H Alkaline Phosphatase 97 Total Protein 6.5 Albumin 3.3 L
[2025-02-18 14:00] VITALS: BP 136/78; PULSE 58; RESP 16; TEMP 36.4; O2SAT 98
--- NOTE | 2025-02-18 14:11 | PM.IMPN ---
Progress Note: A&P Assessment and Plan (1) SBO (small bowel obstruction): Code(s): K56.609 - Unspecified intestinal obstruction, unspecified as to partial versus complete obstruction Status: Acute Assessment and Plan: Gradually improving. Diet advancing, NG tube is out, and patient is tolerating well. GI on board for colonoscopy 02/20 to assess ileocolonic anastomosis (2) History of colon cancer: Code(s): Z85.038 - Personal history of other malignant neoplasm of large intestine Status: Acute Assessment and Plan: Right lung lower lobe mass 1.4 cm suspicious for metastasis noted on imaging. GI on board and aware Will reach out to oncologist on 02/20 (Thursday) and discuss, unless GI is already in conversation. Per son Harjit, he spoke with patient's oncologist who recommends holding Fruquintinib for oral chemotherapy periprocedurely. Will discuss further on Thursday. (3) History of hypertension: Code(s): Z86.79 - Personal history of other diseases of the circulatory system Status: Acute Assessment and Plan: Monitor closely. (4) Kidney stones: Code(s): N20.0 - Calculus of kidney Status: Acute Assessment and Plan: Noted on CT Abdomen/Pelvis. Asymptomatic. Plan Plan is to continue current treatment. Increase activity as tolerated. Full liquid diet to advance as tolerated. Patient is full code for now. DVT prophylaxis SCD boots. Subjective Date/time seen: 02/18/25 14:11 Interval history: 84 years old male with history of hypertension, hyperlipidemia, colon cancer current taking daily chemotherapy was admitted through the emergency room with complaints of having abdominal pain since yesterday evening. Patient denies any nausea or vomiting. Patient denies any chest pain or shortness of breath. Workup in the ER shows patient has small bowel obstruction. NG tube was placed and IV fluids were given. Motion will use for pain medication. Patient was transferred to floor for further evaluation treatment. At present time patient is lying comfortably in the bed. NG is in place. Patient denies any complaints. Surgical consult ordered. Review of Systems Review of Systems: All systems reviewed & are unremarkable except as noted in HPI and below Exam Narrative: GENERAL: Well appearing, well-nourished, non-toxic, in no acute distress. NG out. Tolerating oral intake. HEAD: Normocephalic, atraumatic. NECK: Supple. No adenopathy, no masses. RESPIRATORY: Airway patent, respirations nonlabored. Clear to auscultation bilaterally, no rales, rhonchi, wheezing. CARDIOVASCULAR: Regular rate and rhythm without murmurs, rubs, or gallops. Peripheral pulses 2+ and equal bilaterally. ABDOMINAL: Soft, mild generalized tenderness with palpation, decreased bowel sounds. MUSCULOSKELETAL: Moves all extremities. Strength/ROM intact without gross deformities. SKIN: Warm, dry, normal color. No rashes. NEURO: A&O X3. Speech clear. Cranial nerves II-XII intact. No ataxic movements. PSYCHIATRIC: Appropriate mood and affect. Normal interaction. Objective Data Vital Signs Vital Signs: Vital Signs - 24 hr 02/17/25 14:30 02/17/25 21:20 02/18/25 04:50 Temperature 97.0 F L 97.7 F 97.7 F Pulse Rate 56 L 53 L 56 L Respiratory Rate 16 16 16 Blood Pressure 134/76 142/82 H 155/78 H Pulse Oximetry 99 99 97 Oxygen Delivery 02/18/25 05:19 02/18/25 08:49 02/18/25 08:50 Temperature Pulse Rate 56 L Respiratory Rate Blood Pressure 147/79 H Pulse Oximetry Oxygen Delivery Room Air Intake/Output Intake/Output: Intake & Output 02/15/25 02/16/25 02/17/25 02/18/25 23:59 23:59 23:59 23:59 Intake Total 1000 3183.6 3890 1830 Output Total 200 Balance 1000 2983.6 3890 1830 Meds/Results Medications: Active Medications Generic Name Dose Route Start Last Admin Trade Name Amosq PRN Reason Stop Dose Admin Acetaminophen 650 mg 02/15/25 06:56 Acetaminophen 325 Mg Tablet PO Q4H PRN Mild Pain (1-3) or Fever Bisacodyl 10 mg 02/19/25 15:00 Bisacodyl 5 Mg Tablet Ec PO 02/20/25 03:01 0300,1500,2100 CORINNE Enoxaparin Sodium 40 mg 02/17/25 09:00 02/18/25 08:49 Enoxaparin 40 Mg/0.4 Ml Syringe SUB-Q 40 mg DAILY CORINNE Administration Lactated Ringer's 1,000 mls @ 83 mls/hr 02/15/25 07:00 02/18/25 04:22 Lr - Lactated Ringers Iv IV CONT 83 mls/hr .Q12H3M CORINNE Administration Metoprolol Succinate 50 mg 02/17/25 09:00 02/18/25 08:49 Metoprolol Succinate Ext Rel 50 Mg Tabcr PO 50 mg DAILY CORINNE Administration Morphine Sulfate 2 mg 02/15/25 06:56 02/15/25 15:55 Morphine Sulfate (*Crx) 4 Mg/Ml Inj IV PUSH 2 mg Q2H PRN Administration Pain Rated 7-10 Polyethylene Glycol 119 gm 02/19/25 20:00 Polyethylene Glycol 3350 238 Gm Bottle PO 02/20/25 05:01 BID@0500,2000 [facility] Rosuvastatin Calcium 20 mg 02/17/25 09:00 02/18/25 08:49 Rosuvastatin 20 Mg Tablet PO 20 mg DAILY CORINNE Administration Simethicone 160 mg 02/19/25 15:00 Simethicone 80 Mg Tab.Chew PO 02/20/25 03:01 0300,1500,2100 COR[facility]NE Tamsulosin HCl 0.4 mg 02/17/25 09:00 02/18/25 08:49 Tamsulosin Hcl 0.4 Mg Capsule BY MOUTH 0.4 mg DAILY CORINNE Administration Radiology Results: ITS Impressions Abdomen/Pelvis CT 02/15/25 07:36 IMPRESSION: 1. Small bowel obstruction with probable transition point near the ileocecal colonic anastomosis in the right upper abdomen. There is nearby small bowel thickening, likely site of transition. 2: Right lower lobe lobulated 1.4 cm mass which is low density measuring 23 Hounsfield units. Given the clinical history of colon carcinoma this likely represents metastatic disease. 3: Nonobstructing left nephrolithiasis. Abdomen X-Ray 02/17/25 10:32 Impression: 1. No acute abnormality. Labs Labs: Laboratory Results - last 24 hr 02/18/25 05:19 WBC 3.5 L RBC 3.25 L Hgb 11.2 L Hct 33.5 L MCV 103.1 H MCH 34.5 H MCHC 33.4 RDW 14.9 H Plt Count 160 MPV 9.0 Sodium 135 L Potassium 3.6 Chloride 108 H Carbon Dioxide 23 Anion Gap 4 BUN 11 Creatinine 0.81 Estim Creat Clear Calc 54 Estimated GFR > 60 Glucose 87 Calcium 8.3 L Total Bilirubin 1.6 H AST 60 H ALT 69 H Alkaline Phosphatase 97 Total Protein 6.5 Albumin 3.3 L Hospitalist MIPS Advance Care Plan I have confirmed that the patient's Advanced Care Plan is present, code status is documented, or surrogate decision maker is listed in patient medical record.: Yes Medication Reconciliation I have utilized all available resources to obtain, update and review the patients current medications (includes all prescriptions, OTC, herbals, cannabis, and nutritional supplements).: Yes
[2025-02-18 14:32] VITALS: PULSE 77; O2SAT 99
[2025-02-18 22:08] VITALS: BP 138/68; PULSE 62; RESP 16; TEMP 36.7; O2SAT 97
[2025-02-19 05:41] LABS: Hematocrit 33.9 % (42.0-52.0); Hemoglobin 11.3 g/dL (14.0-18.0); Immature Granulocyte Percent A 0.3 % (0-0.5); Lymphocytes Absolute Auto 1.57 K/mm3 (0.9-3.2); Mean Corpuscular HGB Conc 33.3 g/dl (32-36); Mean Corpuscular Hemoglobin 34.3 pg (26-34); Mean Corpuscular Volume 103.0 fl (80-100); Nucleated Red Blood Cells Absolute Auto 0.000 K/mm3 (0.0-0.012); Nucleated Red Blood Cells Perc 0.0 % (0.0-0.2); Platelet Count Result 170 k/mm3 (150-375); Red Blood Count 3.29 M/mm3 (4.6-6.20); White Blood Count 3.8 K/mm3 (4.5-10.0)
[2025-02-19 06:03] LABS: Alanine Aminotransferase 90 U/L (6-50); Albumin Level 3.3 g/dL (3.5-5.1); Alkaline Phosphatase 104 U/L (38-126); Anion Gap 3 mmol/L (4-12); Aspartate Amino Transferase 88 U/L (17-59); Bilirubin,Total 0.9 mg/dL (0.2-1.3); Blood Urea Nitrogen 14 mg/dL (9-20); Calcium 8.5 mg/dL (8.4-10.2); Carbon Dioxide 22 mmol/L (22-30); Chloride 110 mmol/L (98-107); Estimated CRCL calculation 51 ml/min; Estimated Glomerular Filt Rate > 60; Glucose 89 mg/dL (65-110); Potassium 3.6 mmol/L (3.4-5.0); Sodium 135 mmol/L (137-145); Total Protein 6.6 g/dL (6.3-8.2)
[2025-02-19 06:26] VITALS: BP 128/78; PULSE 58; RESP 16; TEMP 36.4; O2SAT 98
[2025-02-19 08:32] VITALS: PULSE 53
[2025-02-19] MEDS: METOPROLOL SUCCINATE EXT REL 50 MG TABCR PO (08:32)
[2025-02-19] MEDS: TAMSULOSIN HCL 0.4 MG CAPSULE BY MOUTH (08:32)
[2025-02-19] MEDS: ENOXAPARIN 40 MG/0.4 ML SYRINGE SUB-Q (08:32)
[2025-02-19] MEDS: ROSUVASTATIN 20 MG TABLET PO (08:32)
--- NOTE | 2025-02-19 10:08 | PM.PNGS ---
Progress Note: A&P Assessment and Plan (1) SBO (small bowel obstruction): Code(s): K56.609 - Unspecified intestinal obstruction, unspecified as to partial versus complete obstruction Status: Acute Assessment and Plan: largely resolved, exam benign, tolerating soft diet, GI planning colonoscopy tomorrow to assess ileocolic anastomosis Subjective Subjective Date/Time Seen: 02/19/25 10:08 Interval history: feels good, occasional cramping, having loose BMs, georges soft diet Review of Systems Review of Systems: All systems reviewed & are unremarkable except as noted in HPI and below Exam Const: General: cooperative, comfortable and no acute distress Resp: Auscultation: clear to auscultation bilaterally Cardio: Rate: regular rate Rhythm: regular rhythm GI: Inspection: normal to inspection and non-distended GI Palp: No abdominal tenderness and Yes Soft to palpation Objective Data Vital Signs Vital Signs: Vital Signs - 24 hr 02/18/25 14:00 02/18/25 14:32 02/18/25 20:00 Temperature 36.4 C Pulse Rate 58 L 77 Respiratory Rate 16 Blood Pressure 136/78 Pulse Oximetry 98 99 Oxygen Delivery Room Air Room Air 02/18/25 22:08 02/19/25 06:26 02/19/25 08:00 Temperature 36.7 C 36.4 C L Pulse Rate 62 58 L Respiratory Rate 16 16 Blood Pressure 138/68 128/78 Pulse Oximetry 97 98 Oxygen Delivery Room Air 02/19/25 08:32 Temperature Pulse Rate 53 L Respiratory Rate Blood Pressure Pulse Oximetry Oxygen Delivery Intake/Output Intake/Output: Intake & Output 02/16/25 02/17/25 02/18/25 02/19/25 23:59 23:59 23:59 23:59 Intake Total 3183.6 3890 4440 440 Output Total 200 Balance 2983.6 3890 4440 440 Meds/Results Medications: Active Medications Generic Name Dose Route Start Last Admin Trade Name Freq PRN Reason Stop Dose Admin Acetaminophen 650 mg 02/15/25 06:56 Acetaminophen 325 Mg Tablet PO Q4H PRN Mild Pain (1-3) or Fever Bisacodyl 10 mg 02/19/25 15:00 Bisacodyl 5 Mg Tablet Ec PO 02/20/25 03:01 0300,1500,2100 CORINNE Enoxaparin Sodium 40 mg 02/17/25 09:00 02/19/25 08:32 Enoxaparin 40 Mg/0.4 Ml Syringe SUB-Q 40 mg DAILY CORINNE Administration Metoprolol Succinate 50 mg 02/17/25 09:00 02/19/25 08:32 Metoprolol Succinate Ext Rel 50 Mg Tabcr PO 50 mg DAILY CORINNE Administration Morphine Sulfate 2 mg 02/15/25 06:56 02/15/25 15:55 Morphine Sulfate (*Crx) 4 Mg/Ml Inj IV PUSH 2 mg Q2H PRN Administration Pain Rated 7-10 Polyethylene Glycol 119 gm 02/19/25 20:00 Polyethylene Glycol 3350 238 Gm Bottle PO 02/20/25 05:01 BID@0500,2000 [facility] Rosuvastatin Calcium 20 mg 02/17/25 09:00 02/19/25 08:32 Rosuvastatin 20 Mg Tablet PO 20 mg DAILY CORINNE Administration Simethicone 160 mg 02/19/25 15:00 Simethicone 80 Mg Tab.Chew PO 02/20/25 03:01 0300,1500,2100 [facility] Tamsulosin HCl 0.4 mg 02/17/25 09:00 02/19/25 08:32 Tamsulosin Hcl 0.4 Mg Capsule BY MOUTH 0.4 mg DAILY CORINNE Administration Radiology Results: ITS Impressions Abdomen/Pelvis CT 02/15/25 07:36 IMPRESSION: 1. Small bowel obstruction with probable transition point near the ileocecal colonic anastomosis in the right upper abdomen. There is nearby small bowel thickening, likely site of transition. 2: Right lower lobe lobulated 1.4 cm mass which is low density measuring 23 Hounsfield units. Given the clinical history of colon carcinoma this likely represents metastatic disease. 3: Nonobstructing left nephrolithiasis. Abdomen X-Ray 02/17/25 10:32 Impression: 1. No acute abnormality. Labs Labs: Laboratory Results - last 24 hr 02/19/25 04:45 WBC 3.8 L RBC 3.29 L Hgb 11.3 L Hct 33.9 L MCV 103.0 H MCH 34.3 H MCHC 33.3 RDW 14.6 H Plt Count 170 MPV 9.4 Immature Gran % (Auto) 0.3 Neut % (Auto) 45.0 L Lymph % (Auto) 41.5 [place] % (Auto) 8.7 H Eos % (Auto) 3.7 Baso % (Auto) 0.8 Lymph # (Auto) 1.57 [place] # (Auto) 0.3 Eos # (Auto) 0.1 Baso # (Auto) 0.0 Abs Immat Gran (auto) 0.01 Absolute Neuts (auto) 1.7 Absolute Nucleated RBC 0.000 Nucleated RBC % 0.0 Sodium 135 L Potassium 3.6 Chloride 110 H Carbon Dioxide 22 Anion Gap 3 L BUN 14 Creatinine 0.87 Estim Creat Clear Calc 51 Estimated GFR > 60 Glucose 89 Calcium 8.5 Total Bilirubin 0.9 AST 88 H ALT 90 H Alkaline Phosphatase 104 Total Protein 6.6 Albumin 3.3 L
--- NOTE | 2025-02-19 10:29 | WPDGIPROGNO ---
Progress Note: A&P Assessment and Plan (1) H/O colon cancer, stage I: Code(s): Z85.038 - Personal history of other malignant neoplasm of large intestine Status: Acute Assessment and Plan: Patient with resolved small bowel obstruction, suspicious for recurrence or obstructive process in the anastomotic area. Ordered for colon prep and placed today for colonoscopy tomorrow. (2) History of colon cancer: Code(s): Z85.038 - Personal history of other malignant neoplasm of large intestine Status: Acute Subjective Date/time seen: 02/19/25 10:29 Interval history: Patient feels well, no abdominal pain, tolerating liquids well. Objective Data Vital Signs Vital Signs: Vital Signs - 24 hr 02/18/25 14:00 02/18/25 14:32 02/18/25 20:00 Temperature 97.6 F Pulse Rate 58 L 77 Respiratory Rate 16 Blood Pressure 136/78 Pulse Oximetry 98 99 Oxygen Delivery Room Air Room Air 02/18/25 22:08 02/19/25 06:26 02/19/25 08:00 Temperature 98.1 F 97.5 F L Pulse Rate 62 58 L Respiratory Rate 16 16 Blood Pressure 138/68 128/78 Pulse Oximetry 97 98 Oxygen Delivery Room Air 02/19/25 08:32 Temperature Pulse Rate 53 L Respiratory Rate Blood Pressure Pulse Oximetry Oxygen Delivery Intake/Output Intake/Output: Intake & Output 02/16/25 02/17/25 02/18/25 02/19/25 23:59 23:59 23:59 23:59 Intake Total 3183.6 3890 4440 440 Output Total 200 Balance 2983.6 3890 4440 440 Meds/Results Medications: Active Medications Generic Name Dose Route Start Last Admin Trade Name Freq PRN Reason Stop Dose Admin Acetaminophen 650 mg 02/15/25 06:56 Acetaminophen 325 Mg Tablet PO Q4H PRN Mild Pain (1-3) or Fever Bisacodyl 10 mg 02/19/25 15:00 Bisacodyl 5 Mg Tablet Ec PO 02/20/25 03:01 0300,1500,2100 CORINNE Enoxaparin Sodium 40 mg 02/17/25 09:00 02/19/25 08:32 Enoxaparin 40 Mg/0.4 Ml Syringe SUB-Q 40 mg DAILY CORINNE Administration Metoprolol Succinate 50 mg 02/17/25 09:00 02/19/25 08:32 Metoprolol Succinate Ext Rel 50 Mg Tabcr PO 50 mg DAILY CORINNE Administration Morphine Sulfate 2 mg 02/15/25 06:56 02/15/25 15:55 Morphine Sulfate (*Crx) 4 Mg/Ml Inj IV PUSH 2 mg Q2H PRN Administration Pain Rated 7-10 Polyethylene Glycol 119 gm 02/19/25 20:00 Polyethylene Glycol 3350 238 Gm Bottle PO 02/20/25 05:01 BID@0500,2000 [facility] Rosuvastatin Calcium 20 mg 02/17/25 09:00 02/19/25 08:32 Rosuvastatin 20 Mg Tablet PO 20 mg DAILY CORINNE Administration Simethicone 160 mg 02/19/25 15:00 Simethicone 80 Mg Tab.Chew PO 02/20/25 03:01 0300,1500,2100 CORINNE Tamsulosin HCl 0.4 mg 02/17/25 09:00 02/19/25 08:32 Tamsulosin Hcl 0.4 Mg Capsule BY MOUTH 0.4 mg DAILY CORINNE Administration Radiology Results: ITS Impressions Abdomen/Pelvis CT 02/15/25 07:36 IMPRESSION: 1. Small bowel obstruction with probable transition point near the ileocecal colonic anastomosis in the right upper abdomen. There is nearby small bowel thickening, likely site of transition. 2: Right lower lobe lobulated 1.4 cm mass which is low density measuring 23 Hounsfield units. Given the clinical history of colon carcinoma this likely represents metastatic disease. 3: Nonobstructing left nephrolithiasis. Abdomen X-Ray 02/17/25 10:32 Impression: 1. No acute abnormality. Labs Labs: Laboratory Results - last 24 hr 02/19/25 04:45 WBC 3.8 L RBC 3.29 L Hgb 11.3 L Hct 33.9 L MCV 103.0 H MCH 34.3 H MCHC 33.3 RDW 14.6 H Plt Count 170 MPV 9.4 Immature Gran % (Auto) 0.3 Neut % (Auto) 45.0 L Lymph % (Auto) 41.5 [place] % (Auto) 8.7 H Eos % (Auto) 3.7 Baso % (Auto) 0.8 Lymph # (Auto) 1.57 [place] # (Auto) 0.3 Eos # (Auto) 0.1 Baso # (Auto) 0.0 Abs Immat Gran (auto) 0.01 Absolute Neuts (auto) 1.7 Absolute Nucleated RBC 0.000 Nucleated RBC % 0.0 Sodium 135 L Potassium 3.6 Chloride 110 H Carbon Dioxide 22 Anion Gap 3 L BUN 14 Creatinine 0.87 Estim Creat Clear Calc 51 Estimated GFR > 60 Glucose 89 Calcium 8.5 Total Bilirubin 0.9 AST 88 H ALT 90 H Alkaline Phosphatase 104 Total Protein 6.6 Albumin 3.3 L
[2025-02-19 14:00] VITALS: BP 119/76; PULSE 58; RESP 12; TEMP 36; O2SAT 98
[2025-02-19] MEDS: SIMETHICONE 80 MG TAB.CHEW 160 MG PO ×2 (15:28→21:03)
[2025-02-19] MEDS: BISACODYL 5 MG TABLET EC 10 MG PO ×2 (15:29→21:02)
[2025-02-19] MEDS: NEOMYCIN/POLYMYXIN/BACITRACIN OINTMENT PACKET 1 PACKET (15:29)
--- NOTE | 2025-02-19 15:47 | P.PNIM_ITS ---
Progress Note: A&P Assessment and Plan (1) SBO (small bowel obstruction): Code(s): K56.609 - Unspecified intestinal obstruction, unspecified as to partial versus complete obstruction Status: Acute Assessment and Plan: Gradually improving. Diet advancing, NG tube is out, and patient is tolerating well. GI on board for colonoscopy 02/20 to assess ileocolonic anastomosis (2) History of colon cancer: Code(s): Z85.038 - Personal history of other malignant neoplasm of large intestine Status: Acute Assessment and Plan: Right lung lower lobe mass 1.4 cm suspicious for metastasis noted on imaging. GI on board and aware Will reach out to oncologist on 02/20 (Thursday) and discuss, unless GI is already in conversation. Per son Harjit, he spoke with patient's oncologist who recommends holding Fruquintinib for oral chemotherapy periprocedurely. Will discuss further on Thursday. (3) History of hypertension: Code(s): Z86.79 - Personal history of other diseases of the circulatory system Status: Acute Assessment and Plan: Monitor closely. (4) Kidney stones: Code(s): N20.0 - Calculus of kidney Status: Acute Assessment and Plan: Noted on CT Abdomen/Pelvis. Asymptomatic. Plan Plan is to continue current treatment. Increase activity as tolerated. Soft diet to advance as tolerated. NPO at midnight for colonoscopy. Patient is full code for now. DVT prophylaxis SCD boots. Subjective Date/time seen: 02/19/25 15:47 Interval history: 84 years old male with history of hypertension, hyperlipidemia, colon cancer current taking daily chemotherapy was admitted through the emergency room with complaints of having abdominal pain since yesterday evening. Patient denies any nausea or vomiting. Patient denies any chest pain or shortness of breath. Workup in the ER shows patient has small bowel obstruction. NG tube was placed and IV fluids were given. Motion will use for pain medication. Patient was transferred to floor for further evaluation treatment. At present time patient is lying comfortably in the bed. NG is in place. Patient denies any complaints. Surgical consult ordered. Review of Systems Review of Systems: All systems reviewed & are unremarkable except as noted in HPI and below Exam Narrative: GENERAL: Well appearing, well-nourished, non-toxic, in no acute distress. NG out. Tolerating oral intake. HEAD: Normocephalic, atraumatic. NECK: Supple. No adenopathy, no masses. RESPIRATORY: Airway patent, respirations nonlabored. Clear to auscultation bilaterally, no rales, rhonchi, wheezing. CARDIOVASCULAR: Regular rate and rhythm without murmurs, rubs, or gallops. Peripheral pulses 2+ and equal bilaterally. ABDOMINAL: Soft, mild generalized tenderness with palpation, decreased bowel sounds. MUSCULOSKELETAL: Moves all extremities. Strength/ROM intact without gross deformities. SKIN: Warm, dry, normal color. No rashes. NEURO: A&O X3. Speech clear. Cranial nerves II-XII intact. No ataxic movements. PSYCHIATRIC: Appropriate mood and affect. Normal interaction. Objective Data Vital Signs Vital Signs: Vital Signs - 24 hr 02/18/25 20:00 02/18/25 22:08 02/19/25 06:26 Temperature 98.1 F 97.5 F L Pulse Rate 62 58 L Respiratory Rate 16 16 Blood Pressure 138/68 128/78 Pulse Oximetry 97 98 Oxygen Delivery Room Air 02/19/25 08:00 02/19/25 08:32 02/19/25 14:00 Temperature 96.8 F L Pulse Rate 53 L 58 L Respiratory Rate 12 Blood Pressure 119/76 Pulse Oximetry 98 Oxygen Delivery Room Air Intake/Output Intake/Output: Intake & Output 02/16/25 02/17/25 02/18/25 02/19/25 23:59 23:59 23:59 23:59 Intake Total 3183.6 3890 4440 680 Output Total 200 Balance 2983.6 3890 4440 680 Meds/Results Medications: Active Medications Generic Name Dose Route Start Last Admin Trade Name Freq PRN Reason Stop Dose Admin Acetaminophen 650 mg 02/15/25 06:56 Acetaminophen 325 Mg Tablet PO Q4H PRN Mild Pain (1-3) or Fever Bisacodyl 10 mg 02/19/25 15:00 02/19/25 15:29 Bisacodyl 5 Mg Tablet Ec PO 02/20/25 03:01 10 mg 0300,1500,2100 CORINNE Administration Enoxaparin Sodium 40 mg 02/17/25 09:00 02/19/25 08:32 Enoxaparin 40 Mg/0.4 Ml Syringe SUB-Q 40 mg DAILY CORINNE Administration Metoprolol Succinate 50 mg 02/17/25 09:00 02/19/25 08:32 Metoprolol Succinate Ext Rel 50 Mg Tabcr PO 50 mg DAILY CORINNE Administration Morphine Sulfate 2 mg 02/15/25 06:56 02/15/25 15:55 Morphine Sulfate (*Crx) 4 Mg/Ml Inj IV PUSH 2 mg Q2H PRN Administration Pain Rated 7-10 Polyethylene Glycol 119 gm 02/19/25 20:00 Polyethylene Glycol 3350 238 Gm Bottle PO 02/20/25 05:01 BID@0500,2000 COR[facility] Rosuvastatin Calcium 20 mg 02/17/25 09:00 02/19/25 08:32 Rosuvastatin 20 Mg Tablet PO 20 mg DAILY CORINNE Administration Simethicone 160 mg 02/19/25 15:00 02/19/25 15:28 Simethicone 80 Mg Tab.Chew PO 02/20/25 03:01 160 mg 0300,1500,2100 CORINNE Administration Tamsulosin HCl 0.4 mg 02/17/25 09:00 02/19/25 08:32 Tamsulosin Hcl 0.4 Mg Capsule BY MOUTH 0.4 mg DAILY CORINNE Administration Radiology Results: ITS Impressions Abdomen/Pelvis CT 02/15/25 07:36 IMPRESSION: 1. Small bowel obstruction with probable transition point near the ileocecal colonic anastomosis in the right upper abdomen. There is nearby small bowel thickening, likely site of transition. 2: Right lower lobe lobulated 1.4 cm mass which is low density measuring 23 Hounsfield units. Given the clinical history of colon carcinoma this likely represents metastatic disease. 3: Nonobstructing left nephrolithiasis. Abdomen X-Ray 02/17/25 10:32 Impression: 1. No acute abnormality. Labs Labs: Laboratory Results - last 24 hr 02/19/25 04:45 WBC 3.8 L RBC 3.29 L Hgb 11.3 L Hct 33.9 L MCV 103.0 H MCH 34.3 H MCHC 33.3 RDW 14.6 H Plt Count 170 MPV 9.4 Immature Gran % (Auto) 0.3 Neut % (Auto) 45.0 L Lymph % (Auto) 41.5 [place] % (Auto) 8.7 H Eos % (Auto) 3.7 Baso % (Auto) 0.8 Lymph # (Auto) 1.57 [place] # (Auto) 0.3 Eos # (Auto) 0.1 Baso # (Auto) 0.0 Abs Immat Gran (auto) 0.01 Absolute Neuts (auto) 1.7 Absolute Nucleated RBC 0.000 Nucleated RBC % 0.0 Sodium 135 L Potassium 3.6 Chloride 110 H Carbon Dioxide 22 Anion Gap 3 L BUN 14 Creatinine 0.87 Estim Creat Clear Calc 51 Estimated GFR > 60 Glucose 89 Calcium 8.5 Total Bilirubin 0.9 AST 88 H ALT 90 H Alkaline Phosphatase 104 Total Protein 6.6 Albumin 3.3 L Hospitalist MIPS Advance Care Plan I have confirmed that the patient's Advanced Care Plan is present, code status is documented, or surrogate decision maker is listed in patient medical record.: Yes Medication Reconciliation I have utilized all available resources to obtain, update and review the patients current medications (includes all prescriptions, OTC, herbals, jeannie abis, and nutritional supplements).: Yes
[2025-02-19 20:00] VITALS: PULSE 60; RESP 16; O2SAT 100
[2025-02-19 21:07] VITALS: BP 138/76; PULSE 60; RESP 16; TEMP 36.1; O2SAT 100
[2025-02-20] VITALS (9 sets, daily range): BP systolic 110–147; BP diastolic 66–78; PULSE 51–58; RESP 12–20; TEMP 35.9–36.4; O2SAT 97–100
[2025-02-20] MEDS: BISACODYL 5 MG TABLET EC 10 MG PO (03:09)
[2025-02-20] MEDS: SIMETHICONE 80 MG TAB.CHEW 160 MG PO (03:10)
[2025-02-20 04:48] LABS: Hematocrit 37.5 % (42.0-52.0); Hemoglobin 12.6 g/dL (14.0-18.0); Immature Granulocyte Percent A 0.2 % (0-0.5); Lymphocytes Absolute Auto 1.47 K/mm3 (0.9-3.2); Mean Corpuscular HGB Conc 33.6 g/dl (32-36); Mean Corpuscular Hemoglobin 34.1 pg (26-34); Mean Corpuscular Volume 101.6 fl (80-100); Nucleated Red Blood Cells Absolute Auto 0.000 K/mm3 (0.0-0.012); Nucleated Red Blood Cells Perc 0.0 % (0.0-0.2); Platelet Count Result 174 k/mm3 (150-375); Red Blood Count 3.69 M/mm3 (4.6-6.20); White Blood Count 4.3 K/mm3 (4.5-10.0)
[2025-02-20 05:16] LABS: Alanine Aminotransferase 90 U/L (6-50); Albumin Level 3.9 g/dL (3.5-5.1); Alkaline Phosphatase 104 U/L (38-126); Anion Gap 6 mmol/L (4-12); Aspartate Amino Transferase 68 U/L (17-59); Bilirubin,Total 1.2 mg/dL (0.2-1.3); Blood Urea Nitrogen 11 mg/dL (9-20); Calcium 9.1 mg/dL (8.4-10.2); Carbon Dioxide 22 mmol/L (22-30); Chloride 109 mmol/L (98-107); Estimated CRCL calculation 50 ml/min; Estimated Glomerular Filt Rate > 60; Glucose 100 mg/dL (65-110); Potassium 3.7 mmol/L (3.4-5.0); Sodium 137 mmol/L (137-145); Total Protein 7.5 g/dL (6.3-8.2)
[2025-02-20] MEDS: METOPROLOL SUCCINATE EXT REL 50 MG TABCR PO (09:00)
[2025-02-20] MEDS: LACTATED RINGERS 1,000 ML 150 ML IV CONT (11:05)
--- NOTE | 2025-02-20 11:10 | P.PNGS_ITS ---
Progress Note: A&P Assessment and Plan (1) SBO (small bowel obstruction): Code(s): K56.609 - Unspecified intestinal obstruction, unspecified as to partial versus complete obstruction Status: Acute Assessment and Plan: * Resolved. Patient was able to tolerate a solid diet over the weekend and tolerate the bowel prep yesterday. Initial CT showed transition point at the ileocolic anastomosis. * GI planning colonoscopy today to assess the anastomotic area. Subjective Subjective Date/Time Seen: 02/20/25 09:10 Patient reports: no new complaints, flatus and bowel movement Interval history: Patient improved over the weekend and was tolerating a solid diet on Thursday. He was backed down to clear liquids and had bowel prep yesterday for his colonoscopy today. His son is at the bedside assisting in interpreting with the patient's permission. He denies any abdominal pain, nausea, or vomiting over the weekend. The son is concerned with the patient's history of urinary retention following any procedures with traumatic difficult catheter placements following his procedures. Exam Const: General: comfortable and no acute distress GI: Inspection: non-distended GI Palp: Yes Soft to palpation, No Tenderness to palpation present (GI), No Guarding due to palpation present (GI) and No Rebound tenderness present Auscultation: normal bowel sounds Objective Data Vital Signs Vital Signs: Vital Signs - 24 hr 02/19/25 14:00 02/19/25 20:00 02/19/25 21:07 Temperature 96.8 F L 97 F L Pulse Rate 58 L 60 60 Respiratory Rate 12 16 16 Blood Pressure 119/76 138/76 Pulse Oximetry 98 100 100 Oxygen Delivery Room Air 02/20/25 06:00 02/20/25 09:00 02/20/25 11:03 Temperature 97.6 F 97 F L Pulse Rate 56 L 58 L 57 L Respiratory Rate 18 18 Blood Pressure 128/78 147/76 H Pulse Oximetry 97 100 Oxygen Delivery Room Air Intake/Output Intake/Output: Intake & Output 02/17/25 02/18/25 02/19/25 02/20/25 23:59 23:59 23:59 23:59 Intake Total 3890 4440 1280 250 Balance 3890 4440 1280 250 Meds/Results Medications: Active Medications Generic Name Dose Route Start Last Admin Trade Name Freq PRN Reason Stop Dose Admin Acetaminophen 650 mg 02/15/25 06:56 Acetaminophen 325 Mg Tablet PO Q4H PRN Mild Pain (1-3) or Fever Enoxaparin Sodium 40 mg 02/17/25 09:00 02/20/25 08:51 Enoxaparin 40 Mg/0.4 Ml Syringe SUB-Q Not Given DAILY COUNT INCLUDES THE [facility] Lactated Ringer's 1,000 mls @ 150 mls/hr 02/20/25 11:05 02/20/25 11:05 Lr - Lactated Ringers Iv IV CONT 150 mls/hr .Q6H40M CORINNE Administration Metoprolol Succinate 50 mg 02/17/25 09:00 02/20/25 09:00 Metoprolol Succinate Ext Rel 50 Mg Tabcr PO 50 mg DAILY CORINNE Administration Morphine Sulfate 2 mg 02/15/25 06:56 02/15/25 15:55 Morphine Sulfate (*Crx) 4 Mg/Ml Inj IV PUSH 2 mg Q2H PRN Administration Pain Rated 7-10 Rosuvastatin Calcium 20 mg 02/17/25 09:00 02/19/25 08:32 Rosuvastatin 20 Mg Tablet PO 20 mg DAILY CORINNE Administration Tamsulosin HCl 0.4 mg 02/17/25 09:00 02/19/25 08:32 Tamsulosin Hcl 0.4 Mg Capsule BY MOUTH 0.4 mg DAILY CORINNE Administration Radiology Results: ITS Impressions Abdomen/Pelvis CT 02/15/25 07:36 IMPRESSION: 1. Small bowel obstruction with probable transition point near the ileocecal colonic anastomosis in the right upper abdomen. There is nearby small bowel thickening, likely site of transition. 2: Right lower lobe lobulated 1.4 cm mass which is low density measuring 23 Hounsfield units. Given the clinical history of colon carcinoma this likely represents metastatic disease. 3: Nonobstructing left nephrolithiasis. Abdomen X-Ray 02/17/25 10:32 Impression: 1. No acute abnormality. Labs Labs: Laboratory Results - last 24 hr 02/20/25 04:31 WBC 4.3 L RBC 3.69 L Hgb 12.6 L Hct 37.5 L MCV 101.6 H MCH 34.1 H MCHC 33.6 RDW 14.8 H Plt Count 174 MPV 9.1 Immature Gran % (Auto) 0.2 Neut % (Auto) 53.8 Lymph % (Auto) 34.5 [place] % (Auto) 8.0 Eos % (Auto) 2.3 Baso % (Auto) 1.2 Lymph # (Auto) 1.47 [place] # (Auto) 0.3 Eos # (Auto) 0.1 Baso # (Auto) 0.1 Abs Immat Gran (auto) 0.01 Absolute Neuts (auto) 2.3 Absolute Nucleated RBC 0.000 Nucleated RBC % 0.0 Sodium 137 Potassium 3.7 Chloride 109 H Carbon Dioxide 22 Anion Gap 6 BUN 11 Creatinine 0.89 Estim Creat Clear Calc 50 Estimated GFR > 60 Glucose 100 Calcium 9.1 Total Bilirubin 1.2 AST 68 H ALT 90 H Alkaline Phosphatase 104 Total Protein 7.5 Albumin 3.9
--- NOTE | 2025-02-20 11:23 | WPDANESEPPF ---
Anes - Initial Pre Proc Eval Procedure: Operation Date: 02/20/25 15:00 Proposed Procedures p Diagnostic Colonoscopy - Alexis Carrillo MD Date/Time: 02/20/25 11:23 Surgeon: Carri Hamilton DO Pre Op Diagnosis: Small Bowel Obstuction with Transition Point Patient Data Age: 84 Gender: M Height: 1.73 m Weight: 66 kg Last Vital Signs Temp 36.1 C L 02/20/25 11:03 Pulse 57 L 02/20/25 11:03 Resp 18 02/20/25 11:03 BP 147/76 H 02/20/25 11:03 Pulse Ox 100 02/20/25 11:03 O2 Del Method Room Air 02/20/25 11:03 Allergies Allergy/AdvReac Type Severity Reaction Status Date / Time No Known Allergies Allergy Unknown Verified 02/20/25 11:02 Home Medications ?Medication ?Instructions ?Recorded ?Confirmed ?Type clopidogrel 75 mg tablet 75 mg PO DAILY 01/20/23 02/15/25 History Held on 09/07/24. Instructions: Resume on 09/08/24. May resume clopidogrel tomorrow on 09/08/24 rosuvastatin 20 mg tablet 20 mg PO DAILY 01/20/23 02/15/25 History metoprolol succinate 50 mg 50 mg PO DAILY 02/06/23 02/15/25 History tablet,extended release 24 hr tamsulosin 0.4 mg capsule See Rx Instructions .Route 02/11/23 02/15/25 Rx .COMPLEX #90 caps triamcinolone acetonide 0.1 % 1 applic topical BID #80 grams 08/04/24 02/15/25 Rx topical cream fruquintinib 5 mg capsule 5 mg PO .COMPLEX Chemotherapy 08/23/24 02/15/25 History (Fruzaqla) midodrine 2.5 mg tablet 5 mg (2 x 2.5 mg) PO TID #180 tabs 08/30/24 02/15/25 Rx Laboratory Tests 02/20/25 04:31 WBC 4.3 L K/mm3 (4.5-10.0) RBC 3.69 L M/mm3 (4.6-6.20) Hgb 12.6 L g/dL (14.0-18.0) Hct 37.5 L % (42.0-52.0) MCV 101.6 H fl (80-100) MCH 34.1 H pg (26-34) MCHC 33.6 g/dl (32-36) RDW 14.8 H % (11.5-14.5) Plt Count 174 k/mm3 (150-375) MPV 9.1 fl (7.4-10.4) Immature Gran % (Auto) 0.2 % (0-0.5) Neut % (Auto) 53.8 % (45.5-73.1) Lymph % (Auto) 34.5 % (18.3-44.2) [place] % (Auto) 8.0 % (2.6-8.5) Eos % (Auto) 2.3 % (0-4.4) Baso % (Auto) 1.2 % (0.2-1.2) Lymph # (Auto) 1.47 K/mm3 (0.9-3.2) [place] # (Auto) 0.3 K/mm3 (0.1-0.6) Eos # (Auto) 0.1 K/mm3 (0-0.3) Baso # (Auto) 0.1 K/mm3 (0.0-0.1) Abs Immat Gran (auto) 0.01 K/mm3 (0.00-0.031) Absolute Neuts (auto) 2.3 K/mm3 (1.3-6.7) Absolute Nucleated RBC 0.000 K/mm3 (0.0-0.012) Nucleated RBC % 0.0 % (0.0-0.2) Sodium 137 mmol/L (137-145) Potassium 3.7 mmol/L (3.4-5.0) Chloride 109 H mmol/L (98-107) Carbon Dioxide 22 mmol/L (22-30) Anion Gap 6 mmol/L (4-12) BUN 11 mg/dL (9-20) Creatinine 0.89 mg/dL (0.7-1.3) Estim Creat Clear Calc 50 ml/min Estimated GFR > 60 (59 - ) Glucose 100 mg/dL (65-110) Calcium 9.1 mg/dL (8.4-10.2) Total Bilirubin 1.2 mg/dL (0.2-1.3) AST 68 H U/L (17-59) ALT 90 H U/L (6-50) Alkaline Phosphatase 104 U/L (38-126) Total Protein 7.5 g/dL (6.3-8.2) Albumin 3.9 g/dL (3.5-5.1) Patient hx anesthesia problems: none Family hx anesthesia problems: none Results Review: All pre-operative results and documents have been reviewed as part of the pre-operative evaluation. 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 Leung. Cholelithiasis Bilateral inguinal hernia Achilles tendon tear Surgical History Surgical History Hx of laparoscopy 09/06/24 1. Laparoscopic removal of retained gallstone 2. Laparoscopic peritoneal biopsy 3. Laparoscopic adhesiolysis Dr. Graham Hx laparoscopic cholecystectomy 02/09/23 Status post dilation of urethral narrowing 11/03/23 History of cardiac catheterization 07/2022 with findings of coronary artery disease with recommendation of medical therapy due to high risk for PCI, on dual anti-platelet therapy History of lithotripsy (04/15/19) History of partial colectomy (04/09/09) Laparoscopic sigmoid colectomy for sigmoid adenocarcinoma. History of colonoscopy with polypectomy History of bilateral inguinal hernia repair (05/30/16) History of Achilles tendon repair (11/29/14) Right. History of colon resection (04/23/22) Hand assisted laparoscopic right hemicolectomy with ileocolic anastomosis, small bowel resection with side to side anastomosis, and extensive adhesiolysis. Family History Family History Sibling Throat cancer Other Family history non-contributory Social History Social History Social History: Patient smoked 1/2ppd x 20yrs but quit 45yrs ago. Hx of heavy alcohol use when he was young but no alcohol currently. No hx of drug use including IVDU. Lives at home with his . No pets. Surrogate medical decision maker: Theodore Bryant (son). Code status: Full code. Smoking packs per day: 0.5 Smoking cigarettes per day: 10.0 Years smoked: 20 Smoking pack-years: 10.00 Smoking status: Former smoker Second hand tobacco smoke exposure: No Additional smoking assessment comments: SON STATES PT STOPPED SMOKING ABOUT 45YRS AGO Alcohol intake: former Drinks per week: 1 Alcohol use details: RARELY - FEW TIMES A YEAR Substance use: never Substance use type: does not use Lack of Transportation: No Lack of Food: Never True Current Housing: I Have Housing Concerned About Future Housing: No Difficulty Paying Gas/Electric Bills: No Difficulty Paying for Meds: No Currently Unemployed: No Education: Decline to Answer Difficulty w/ Childcare or Family Care: No Living arrangements: with family Additional living arrangements comments: Occupation/Education: retired 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 Spiritual care concerns: No Anes - Eval Final PreProcedure Day of Procedure 02/20/25 11:23 Patient weight: normal Heart: regular rate and rhythm Lungs: clear to auscultation Airway: Mallampati scale class 1 Neurological: alert and oriented Last oral intake: >/= 8 hours ASA classification: III Emergent: no Anesthetic plan: proceed Anesthesia type and monitoring: general GIVS and standard monitoring Results Review: All pre-operative results and documents have been reviewed as part of the pre-operative evaluation. Informed Consent: The patient's anesthetic plan and its attendant risks and benefits were discussed with the patient/family/POA. Questions were solicited and answers provided to the satisfaction of the patient/family/POA.
--- NOTE | 2025-02-20 12:03 | SUR.OPER ---
attempted to put a 14 Fr urinary Coude catheter in pt. Catheter advanced without difficulty with no resistance felt with advancement of catheter. no urine returned when catheter was placed, catheter irrigated with 30 ml of sterile water through catheter and maybe 1 ml of clear fluid returned. Decision made to remove catheter and have floor consult Urologist if catheter needed.
--- NOTE | 2025-02-20 12:20 | P.PNIM_ITS ---
Subjective Date/time seen: 02/20/25 12:20 Interval history: 84 years old male with history of hypertension, hyperlipidemia, colon cancer current taking daily chemotherapy was admitted through the emergency room with complaints of having abdominal pain since yesterday evening. Patient denies any nausea or vomiting. Patient denies any chest pain or shortness of breath. Workup in the ER shows patient has small bowel obstruction. NG tube was placed and IV fluids were given. Motion will use for pain medication. Patient was transferred to floor for further evaluation treatment. At present time patient is lying comfortably in the bed. NG is in place. Patient denies any compla ints. Surgical consult ordered. Review of Systems Review of Systems: All systems reviewed & are unremarkable except as noted in HPI and below Exam Narrative: GENERAL: Well appearing, well-nourished, non-toxic, in no acute distress. NG out. Tolerating oral intake. HEAD: Normocephalic, atraumatic. NECK: Supple. No adenopathy, no masses. RESPIRATORY: Airway patent, respirations nonlabored. Clear to auscultation bilaterally, no rales, rhonchi, wheezing. CARDIOVASCULAR: Regular rate and rhythm without murmurs, rubs, or gallops. Peripheral pulses 2+ and equal bilaterally. ABDOMINAL: Soft, mild generalized tenderness with palpation, decreased bowel sounds. MUSCULOSKELETAL: Moves all extremities. Strength/ROM intact without gross deformities. SKIN: Warm, dry, normal color. No rashes. NEURO: A&O X3. Speech clear. Cranial nerves II-XII intact. No ataxic movements. PSYCHIATRIC: Appropriate mood and affect. Normal interaction. Objective Data Vital Signs Vital Signs: Vital Signs - 24 hr 02/19/25 14:00 02/19/25 20:00 02/19/25 21:07 Temperature 96.8 F L 97 F L Pulse Rate 58 L 60 60 Respiratory Rate 12 16 16 Blood Pressure 119/76 138/76 Pulse Oximetry 98 100 100 Oxygen Delivery Room Air 02/20/25 06:00 02/20/25 08:00 02/20/25 09:00 Temperature 97.6 F Pulse Rate 56 L 58 L Respiratory Rate 18 Blood Pressure 128/78 Pulse Oximetry 97 Oxygen Delivery Room Air 02/20/25 11:03 02/20/25 12:02 02/20/25 12:12 Temperature 97 F L Pulse Rate 57 L 55 L 52 L Respiratory Rate 18 15 12 Blood Pressure 147/76 H 114/72 120/74 Pulse Oximetry 100 100 100 Oxygen Delivery Room Air Room Air Room Air Intake/Output Intake/Output: Intake & Output 02/17/25 02/18/25 02/19/25 02/20/25 23:59 23:59 23:59 23:59 Intake Total 3890 4440 1280 250 Balance 3890 4440 1280 250 Meds/Results Medications: Active Medications Generic Name Dose Route Start Last Admin Trade Name Freq PRN Reason Stop Dose Admin Acetaminophen 650 mg 02/15/25 06:56 Acetaminophen 325 Mg Tablet PO Q4H PRN Mild Pain (1-3) or Fever Enoxaparin Sodium 40 mg 02/17/25 09:00 02/20/25 08:51 Enoxaparin 40 Mg/0.4 Ml Syringe SUB-Q Not Given DAILY CORINNE Lactated Ringer's 1,000 mls @ 150 mls/hr 02/20/25 11:05 02/20/25 11:50 Lr - Lactated Ringers Iv IV CONT 150 mls/hr .Q6H40M CORINNE Infusion Metoprolol Succinate 50 mg 02/17/25 09:00 02/20/25 09:00 Metoprolol Succinate Ext Rel 50 Mg Tabcr PO 50 mg DAILY CORINNE Administration Morphine Sulfate 2 mg 02/15/25 06:56 02/15/25 15:55 Morphine Sulfate (*Crx) 4 Mg/Ml Inj IV PUSH 2 mg Q2H PRN Administration Pain Rated 7-10 Rosuvastatin Calcium 20 mg 02/17/25 09:00 02/19/25 08:32 Rosuvastatin 20 Mg Tablet PO 20 mg DAILY CORINNE Administration Tamsulosin HCl 0.4 mg 02/17/25 09:00 02/19/25 08:32 Tamsulosin Hcl 0.4 Mg Capsule BY MOUTH 0.4 mg DAILY CORINNE Administration Radiology Results: ITS Impressions Abdomen/Pelvis CT 02/15/25 07:36 IMPRESSION: 1. Small bowel obstruction with probable transition point near the ileocecal colonic anastomosis in the right upper abdomen. There is nearby small bowel thickening, likely site of transition. 2: Right lower lobe lobulated 1.4 cm mass which is low density measuring 23 Hounsfield units. Given the clinical history of colon carcinoma this likely represents metastatic disease. 3: Nonobstructing left nephrolithiasis. Abdomen X-Ray 02/17/25 10:32 Impression: 1. No acute abnormality. Labs Labs: Laboratory Results - last 24 hr 02/20/25 04:31 WBC 4.3 L RBC 3.69 L Hgb 12.6 L Hct 37.5 L MCV 101.6 H MCH 34.1 H MCHC 33.6 RDW 14.8 H Plt Count 174 MPV 9.1 Immature Gran % (Auto) 0.2 Neut % (Auto) 53.8 Lymph % (Auto) 34.5 [place] % (Auto) 8.0 Eos % (Auto) 2.3 Baso % (Auto) 1.2 Lymph # (Auto) 1.47 [place] # (Auto) 0.3 Eos # (Auto) 0.1 Baso # (Auto) 0.1 Abs Immat Gran (auto) 0.01 Absolute Neuts (auto) 2.3 Absolute Nucleated RBC 0.000 Nucleated RBC % 0.0 Sodium 137 Potassium 3.7 Chloride 109 H Carbon Dioxide 22 Anion Gap 6 BUN 11 Creatinine 0.89 Estim Creat Clear Calc 50 Estimated GFR > 60 Glucose 100 Calcium 9.1 Total Bilirubin 1.2 AST 68 H ALT 90 H Alkaline Phosphatase 104 Total Protein 7.5 Albumin 3.9 Assessment and Plan Assessment and Plan (1) SBO (small bowel obstruction): Code(s): K56.609 - Unspecified intestinal obstruction, unspecified as to partial versus complete obstruction Status: Acute Assessment and Plan: Resolved Diet advancing, NG tube is out, and patient is tolerating well. S/p colonoscopy 02/20 to assess ileocolonic anastomosis - no abnormalities noted, no new masses or lesions. GI has signed off. (2) History of colon cancer: Code(s): Z85.038 - Personal history of other malignant neoplasm of large intestine Status: Acute Assessment and Plan: Right lung lower lobe mass 1.4 cm suspicious for metastasis noted on imaging. GI on board and aware Will reach out to oncologist on 02/20 (Thursday) and discuss, unless GI is already in conversation. Per son Theodore, he spoke with patient's oncologist who recommends holding Fruquintinib for oral chemotherapy periprocedurely. Discussed further with Theodore, who provided his oncologist's number. Will call oncologist Dr Leung ([phone]) to update and inform of mass on CT. However, Theodore did mention they are aware of lung mass from prior imaging. Thus, this may not be new, but again will discuss with Dr Leung to ensure they are aware. (3) HTN (hypertension): Code(s): I10 - Essential (primary) hypertension Status: Acute Assessment and Plan: On metoprolol 50mg qd, continue (4) Kidney stones: Code(s): N20.0 - Calculus of kidney Status: Acute Assessment and Plan: Noted on CT Abdomen/Pelvis. Asymptomatic. 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 Plan Follow with surgery and see if cath was needed- urology appointment on DC for nolan maangement if it is placed. DC when cleared from surgical standpoint. DVt Prophylaxis: Lovenox 40mg qd Diet: soft Medical Record Review I have reviewed the following patient records and this information was taken into consideration when formulating the assessment and plan.: previous labs Consultations Consultations: I have discussed the care of this pt with the consulting yoli Gross [facility] Advance Care Plan I have confirmed that the patient's Advanced Care Plan is present, code status is documented, or surrogate decision maker is listed in patient medical record.: Yes Medication Reconciliation I have utilized all available resources to obtain, update and review the patients current medications (includes all prescriptions, OTC, herbals, cannabis, and nutritional supplements).: Yes
[2025-02-20] MEDS: TAMSULOSIN HCL 0.4 MG CAPSULE BY MOUTH (14:09)
[2025-02-20] MEDS: ROSUVASTATIN 20 MG TABLET PO (14:09)
[2025-02-20] MEDS: NEOMYCIN/POLYMYXIN/BACITRACIN OINTMENT PACKET 1 PACKET (14:09)
--- NOTE | 2025-02-20 14:34 | PC.NURSE ---
Patient with unmeasured void, bladder scan 0mls after. WIll continue bladder scanning post voids
--- NOTE | 2025-02-20 15:46 | P.PNGI_ITS ---
Progress Note: A&P Assessment and Plan (1) History of colon cancer: Code(s): Z85.038 - Personal history of other malignant neoplasm of large intestine Status: Acute Assessment and Plan: see colonoscopy report. No recurrence of neoplasia at the anatomotic site. Episode of SBO already resolved, likely due to adhesions. Continue management per oncology recommedations. Will sign off for now. Subjective Date/time seen: 02/20/25 15:46 Objective Data Vital Signs Vital Signs: Vital Signs - 24 hr 02/19/25 20:00 02/19/25 21:07 02/20/25 06:00 Temperature 97 F L 97.6 F Pulse Rate 60 60 56 L Respiratory Rate 16 16 18 Blood Pressure 138/76 128/78 Pulse Oximetry 100 100 97 Oxygen Delivery Room Air 02/20/25 08:00 02/20/25 09:00 02/20/25 11:03 Temperature 97 F L Pulse Rate 58 L 57 L Respiratory Rate 18 Blood Pressure 147/76 H Pulse Oximetry 100 Oxygen Delivery Room Air Room Air 02/20/25 12:02 02/20/25 12:12 02/20/25 12:22 Temperature Pulse Rate 55 L 52 L 51 L Respiratory Rate 15 12 16 Blood Pressure 114/72 120/74 116/71 Pulse Oximetry 100 100 100 Oxygen Delivery Room Air Room Air Room Air 02/20/25 14:00 Temperature 96.6 F L Pulse Rate 56 L Respiratory Rate 15 Blood Pressure 110/66 Pulse Oximetry 99 Oxygen Delivery Intake/Output Intake/Output: Intake & Output 02/17/25 02/18/25 02/19/25 02/20/25 23:59 23:59 23:59 23:59 Intake Total 3890 4440 1280 650 Balance 3890 4440 1280 650 Meds/Results Medications: Active Medications Generic Name Dose Route Start Last Admin Trade Name Freq PRN Reason Stop Dose Admin Acetaminophen 650 mg 02/15/25 06:56 Acetaminophen 325 Mg Tablet PO Q4H PRN Mild Pain (1-3) or Fever Enoxaparin Sodium 40 mg 02/17/25 09:00 02/20/25 08:51 Enoxaparin 40 Mg/0.4 Ml Syringe SUB-Q Not Given DAILY CORINNE Metoprolol Succinate 50 mg 02/17/25 09:00 02/20/25 09:00 Metoprolol Succinate Ext Rel 50 Mg Tabcr PO 50 mg DAILY CORINNE Administration Morphine Sulfate 2 mg 02/15/25 06:56 02/15/25 15:55 Morphine Sulfate (*Crx) 4 Mg/Ml Inj IV PUSH 2 mg Q2H PRN Administration Pain Rated 7-10 Rosuvastatin Calcium 20 mg 02/17/25 09:00 02/20/25 14:09 Rosuvastatin 20 Mg Tablet PO 20 mg DAILY CORINNE Administration Tamsulosin HCl 0.4 mg 02/17/25 09:00 02/20/25 14:09 Tamsulosin Hcl 0.4 Mg Capsule BY MOUTH 0.4 mg DAILY CORINNE Administration Radiology Results: ITS Impressions Abdomen/Pelvis CT 02/15/25 07:36 IMPRESSION: 1. Small bowel obstruction with probable transition point near the ileocecal colonic anastomosis in the right upper abdomen. There is nearby small bowel thickening, likely site of transition. 2: Right lower lobe lobulated 1.4 cm mass which is low density measuring 23 Hounsfield units. Given the clinical history of colon carcinoma this likely represents metastatic disease. 3: Nonobstructing left nephrolithiasis. Abdomen X-Ray 02/17/25 10:32 Impression: 1. No acute abnormality. Labs Labs: Laboratory Results - last 24 hr 02/20/25 04:31 WBC 4.3 L RBC 3.69 L Hgb 12.6 L Hct 37.5 L MCV 101.6 H MCH 34.1 H MCHC 33.6 RDW 14.8 H Plt Count 174 MPV 9.1 Immature Gran % (Auto) 0.2 Neut % (Auto) 53.8 Lymph % (Auto) 34.5 [place] % (Auto) 8.0 Eos % (Auto) 2.3 Baso % (Auto) 1.2 Lymph # (Auto) 1.47 [place] # (Auto) 0.3 Eos # (Auto) 0.1 Baso # (Auto) 0.1 Abs Immat Gran (auto) 0.01 Absolute Neuts (auto) 2.3 Absolute Nucleated RBC 0.000 Nucleated RBC % 0.0 Sodium 137 Potassium 3.7 Chloride 109 H Carbon Dioxide 22 Anion Gap 6 BUN 11 Creatinine 0.89 Estim Creat Clear Calc 50 Estimated GFR > 60 Glucose 100 Calcium 9.1 Total Bilirubin 1.2 AST 68 H ALT 90 H Alkaline Phosphatase 104 Total Protein 7.5 Albumin 3.9
[2025-02-21 04:44] LABS: Hematocrit 37.3 % (42.0-52.0); Hemoglobin 12.6 g/dL (14.0-18.0); Mean Corpuscular HGB Conc 33.8 g/dl (32-36); Mean Corpuscular Hemoglobin 34.3 pg (26-34); Mean Corpuscular Volume 101.6 fl (80-100); Platelet Count Result 174 k/mm3 (150-375); Red Blood Count 3.67 M/mm3 (4.6-6.20); White Blood Count 4.1 K/mm3 (4.5-10.0)
[2025-02-21 05:00] VITALS: BP 106/59; PULSE 73; RESP 16; TEMP 36.3; O2SAT 98
[2025-02-21 05:10] LABS: Alanine Aminotransferase 70 U/L (6-50); Albumin Level 3.7 g/dL (3.5-5.1); Alkaline Phosphatase 101 U/L (38-126); Anion Gap 4 mmol/L (4-12); Aspartate Amino Transferase 47 U/L (17-59); Bilirubin,Total 0.9 mg/dL (0.2-1.3); Blood Urea Nitrogen 13 mg/dL (9-20); Calcium 9.1 mg/dL (8.4-10.2); Carbon Dioxide 23 mmol/L (22-30); Chloride 108 mmol/L (98-107); Estimated CRCL calculation 49 ml/min; Estimated Glomerular Filt Rate > 60; Glucose 96 mg/dL (65-110); Potassium 3.8 mmol/L (3.4-5.0); Sodium 135 mmol/L (137-145); Total Protein 7.4 g/dL (6.3-8.2)
--- NOTE | 2025-02-21 07:18 | WPDANESPN ---
Anes - Prog Note Post-Op Date/Time: 02/21/25 07:18 Cardiovascular status: normal Respiratory status: normal Airway patency: baseline Mental status: baseline Post-Op hydration status: normal Vital Signs: Last Vital Signs Temp 36.3 C L 02/21/25 05:00 Pulse 73 02/21/25 05:00 Resp 16 02/21/25 05:00 BP 106/59 L 02/21/25 05:00 Pulse Ox 98 02/21/25 05:00 O2 Del Method Room Air 02/20/25 20:00 Pain Score (VAS): 0 I/O: Intake & Output 02/20/25 02/20/25 02/21/25 15:59 23:59 07:59 Intake Total 400 400 150 Balance 400 400 150 Laboratory Tests 02/21/25 04:31 02/21/25 04:31 02/21/25 04:31 WBC 4.1 L RBC 3.67 L Hgb 12.6 L Hct 37.3 L MCV 101.6 H MCH 34.3 H MCHC 33.8 RDW 14.8 H Plt Count 174 MPV 9.1 Sodium 135 L Potassium 3.8 Chloride 108 H Carbon Dioxide 23 Anion Gap 4 BUN 13 Creatinine 0.90 Estim Creat Clear Calc 49 Estimated GFR > 60 Glucose 96 Calcium 9.1 Total Bilirubin 0.9 AST 47 ALT 70 H Alkaline Phosphatase 101 Total Protein 7.4 Albumin 3.7 Post-procedural complaints: none Patient Feedback: Patient satisfied with anesthetic care.
[2025-02-21 08:00] VITALS: O2SAT 96
[2025-02-21 08:30] VITALS: PULSE 69
[2025-02-21] MEDS: TAMSULOSIN HCL 0.4 MG CAPSULE BY MOUTH (08:30)
[2025-02-21] MEDS: METOPROLOL SUCCINATE EXT REL 50 MG TABCR PO (08:30)
[2025-02-21] MEDS: ROSUVASTATIN 20 MG TABLET PO (08:30)
[2025-02-21 08:32] VITALS: BP 105/66
[2025-02-21] MEDS: ENOXAPARIN 40 MG/0.4 ML SYRINGE SUB-Q (08:33)
--- NOTE | 2025-02-21 10:33 | P.PNGS_ITS ---
Progress Note: A&P Assessment and Plan (1) SBO (small bowel obstruction): Code(s): K56.609 - Unspecified intestinal obstruction, unspecified as to partial versus complete obstruction Status: Acute Assessment and Plan: * Resolved. Patient tolerating soft diet without any nausea or vomiting. Minimal abdominal pain. * GI performed colonoscopy yesterday. Ileocolonic anastomosis with no lesions or tumor. Colon and blaze terminal ileum with no stricture, no colitis, no polyps. A few diverticula and internal hemorrhoids were identified. * Patient is surgically stable for discharge. Plan Discussed patient's case and plan of care with Dr. Graham. Subjective Subjective Date/Time Seen: 02/21/25 10:33 Patient reports: no new complaints, feels better, flatus and bowel movement Interval history: Patient doing well today. Had several loose BMs after colonoscopy yesterday. Passing flatus this morning. Tolerating soft diet without nausea or vomiting. Minimal abdominal pain. Exam Const: General: comfortable and no acute distress Other: Sitting up in chair GI: Inspection: non-distended GI Palp: Yes Soft to palpation, No Tenderness to palpation present (GI) and No Guarding due to palpation present (GI) Auscultation: normal bowel sounds Objective Data Vital Signs Vital Signs: Vital Signs - 24 hr 02/20/25 11:03 02/20/25 12:02 02/20/25 12:12 Temperature 97 F L Pulse Rate 57 L 55 L 52 L Respiratory Rate 18 15 12 Blood Pressure 147/76 H 114/72 120/74 Pulse Oximetry 100 100 100 Oxygen Delivery Room Air Room Air Room Air 02/20/25 12:22 02/20/25 14:00 02/20/25 20:00 Temperature 96.6 F L Pulse Rate 51 L 56 L 57 L Respiratory Rate 16 15 20 Blood Pressure 116/71 110/66 Pulse Oximetry 100 99 97 Oxygen Delivery Room Air Room Air 02/20/25 20:35 02/21/25 05:00 02/21/25 08:00 Temperature 97.6 F 97.3 F L Pulse Rate 57 L 73 Respiratory Rate 20 16 Blood Pressure 115/70 106/59 L Pulse Oximetry 97 98 96 Oxygen Delivery Room Air 02/21/25 08:30 02/21/25 08:32 Temperature Pulse Rate 69 Respiratory Rate Blood Pressure 105/66 Pulse Oximetry Oxygen Delivery Intake/Output Intake/Output: Intake & Output 02/18/25 02/19/25 02/20/25 02/21/25 23:59 23:59 23:59 23:59 Intake Total 4440 1280 1050 390 Balance 4440 1280 1050 390 Meds/Results Medications: Active Medications Generic Name Dose Route Start Last Admin Trade Name Freq PRN Reason Stop Dose Admin Acetaminophen 650 mg 02/15/25 06:56 Acetaminophen 325 Mg Tablet PO Q4H PRN Mild Pain (1-3) or Fever Enoxaparin Sodium 40 mg 02/17/25 09:00 02/21/25 08:33 Enoxaparin 40 Mg/0.4 Ml Syringe SUB-Q 40 mg DAILY CORINNE Administration Metoprolol Succinate 50 mg 02/17/25 09:00 02/21/25 08:30 Metoprolol Succinate Ext Rel 50 Mg Tabcr PO 50 mg DAILY CORINNE Administration Morphine Sulfate 2 mg 02/15/25 06:56 02/15/25 15:55 Morphine Sulfate (*Crx) 4 Mg/Ml Inj IV PUSH 2 mg Q2H PRN Administration Pain Rated 7-10 Rosuvastatin Calcium 20 mg 02/17/25 09:00 02/21/25 08:30 Rosuvastatin 20 Mg Tablet PO 20 mg DAILY CORINNE Administration Tamsulosin HCl 0.4 mg 02/17/25 09:00 02/21/25 08:30 Tamsulosin Hcl 0.4 Mg Capsule BY MOUTH 0.4 mg DAILY CORINNE Administration Radiology Results: ITS Impressions Abdomen/Pelvis CT 02/15/25 07:36 IMPRESSION: 1. Small bowel obstruction with probable transition point near the ileocecal colonic anastomosis in the right upper abdomen. There is nearby small bowel thickening, likely site of transition. 2: Right lower lobe lobulated 1.4 cm mass which is low density measuring 23 Hounsfield units. Given the clinical history of colon carcinoma this likely represents metastatic disease. 3: Nonobstructing left nephrolithiasis. Abdomen X-Ray 02/17/25 10:32 Impression: 1. No acute abnormality. Labs Labs: Laboratory Results - last 24 hr 02/21/25 04:31 WBC 4.1 L RBC 3.67 L Hgb 12.6 L Hct 37.3 L MCV 101.6 H MCH 34.3 H MCHC 33.8 RDW 14.8 H Plt Count 174 MPV 9.1 Sodium 135 L Potassium 3.8 Chloride 108 H Carbon Dioxide 23 Anion Gap 4 BUN 13 Creatinine 0.90 Estim Creat Clear Calc 49 Estimated GFR > 60 Glucose 96 Calcium 9.1 Total Bilirubin 0.9 AST 47 ALT 70 H Alkaline Phosphatase 101 Total Protein 7.4 Albumin 3.7
[2025-02-21] MEDS: SIMETHICONE 80 MG TAB.CHEW PO (11:45)
--- NOTE | 2025-02-21 13:49 | PCNWS ---
Weekly nutritional screen. Patient is tolerating current diet with adequate intake. No weight loss reported. No nutritional needs at this time.
--- NOTE | 2025-02-21 14:16 | PM.DS ---
DS: Admitting Diagnosis Discharge Date 02/21/25 Admitting Diagnosis SBO DS: Discharge Diagnosis Discharge Diagnosis (1) SBO (small bowel obstruction): Code(s): K56.609 - Unspecified intestinal obstruction, unspecified as to partial versus complete obstruction Status: Acute Assessment and Plan: Resolved Diet advancing, NG tube is out, and patient is tolerating well. S/p colonoscopy 02/20 to assess ileocolonic anastomosis - no abnormalities noted, no new masses or lesions. GI has signed off. Surgery has cleared for discharge. (2) History of colon cancer: Code(s): Z85.038 - Personal history of other malignant neoplasm of large intestine Status: Acute Assessment and Plan: Right lower lobe mass 1.4 cm suspicious for metastasis noted on imaging-unclear if lung or liver. GI on board and aware Per son Theodore, he spoke with patient's oncologist who recommends holding Fruquintinib for oral chemotherapy periprocedurely. Discussed further with Theodore, who provided his oncologist's number. Called oncologist Dr Leung ([phone]) to update and inform of mass on CT. However, Theodore did mention they are aware of a lung mass from prior imaging. Thus, this may not be new. Left message with Dr Leung requesting to call, however have not received a call back. CT report was left with ezequiel Jaimes who can show to Dr Leung for further oncological management. (3) HTN (hypertension): Code(s): I10 - Essential (primary) hypertension Status: Acute Assessment and Plan: On metoprolol 50mg qd, continue (4) Kidney stones: Code(s): N20.0 - Calculus of kidney Status: Acute Assessment and Plan: Noted on CT Abdomen/Pelvis. Asymptomatic. Outpatient follow up. 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 Patient appeared to tolerate procedure well without resultant urinary retention. DS: Summary Hospital Course Hospital Course: 84 years old male with history of hypertension, hyperlipidemia, colon cancer current taking daily chemotherapy was admitted through the emergency room with complaints of having abdominal pain since yesterday evening. Patient denies any nausea or vomiting. Patient denies any chest pain or shortness of breath. Workup in the ER shows patient has small bowel obstruction. NG tube was placed and IV fluids were given. Motion will use for pain medication. Patient was transferred to floor for further evaluation treatment. At present time patient is lying comfortably in the bed. NG is in place. Patient denies any complaints. Surgical consult ordered. SBO was managed with NG tube decompression and NPO. GI was brought on board given history of colon cancer and findings on CT as described above. Prior surgical anastomosis was investigated through colonoscopy on 02/20, no evidence of new mass noted. Patient tolerated procedure well and not develop urinary retention. Is now cleared for discharge from surgical and GI perspective. As above, new mass was noted suspicious for metastasis on CT. This was informed to patient's son Theodore, and CT report was provided to him to give to oncology so they can assess. Status at Discharge Cognitive/behavioral status at discharge: Stable Time Spent with Patient Time attestation: Total time spent providing and/or coordinating discharge services: Exam Narrative: GENERAL: Well appearing, well-nourished, non-toxic, in no acute distress. Tolerating oral intake. HEAD: Normocephalic, atraumatic. NECK: Supple. No adenopathy, no masses. RESPIRATORY: Airway patent, respirations nonlabored. Clear to auscultation bilaterally, no rales, rhonchi, wheezing. CARDIOVASCULAR: Regular rate and rhythm without murmurs, rubs, or gallops. Peripheral pulses 2+ and equal bilaterally. ABDOMINAL: Soft, nontender, bowel sounds present MUSCULOSKELETAL: Moves all extremities. Strength/ROM intact without gross deformities. SKIN: Warm, dry, normal color. No rashes. NEURO: A&O X3. Speech clear. Cranial nerves II-XII intact. No ataxic movements. PSYCHIATRIC: Appropriate mood and affect. Normal interaction. DS: Data Data Completed and Pending Labs on day of discharge: Labs from last 24 hours 02/21/25 04:31 WBC 4.1 L RBC 3.67 L Hgb 12.6 L Hct 37.3 L MCV 101.6 H MCH 34.3 H MCHC 33.8 RDW 14.8 H Plt Count 174 MPV 9.1 Sodium 135 L Potassium 3.8 Chloride 108 H Carbon Dioxide 23 Anion Gap 4 BUN 13 Creatinine 0.90 Estim Creat Clear Calc 49 Estimated GFR > 60 Glucose 96 Calcium 9.1 Total Bilirubin 0.9 AST 47 ALT 70 H Alkaline Phosphatase 101 Total Protein 7.4 Albumin 3.7 Discharge Plan Discharge Attending physician on discharge: Fly Bhakta Oca Consulting providers: Ernesto Graham Discharging Clinician: Fly Bhakta Oca Patient Disposition: Home Activity: as tolerated Diet: as tolerated Discharge Instructions: Please send patient home with a physical disc copy of his CT abdomen/pelvis. Follow up with oncology in regards to CT findings. Report also provided. Patient Instructions: Antibiotic Form, Low Fiber Diet (DC), Low Fiber Diet (GEN), Pain Management (GEN), Abdominal Pain (GEN), Bowel Obstruction (GEN) Patient Language: Kinyarwanda Stand Alone Forms: General Discharge Information Follow-up/Referrals: Kandy Rodriguez MD [Primary Care Provider, [facility]] Xochitl,Duke Edmonds DO [Non-Staff, Hematology & Oncology] - 2 Weeks Problems: History of colon cancer Discharge Medications: New simethicone 80 mg Tablet,Chewable 80 mg PO QID PRN (Reason: Abdominal Cramping) 5 Days Qty: 15 0RF Continued metoprolol succinate 50 mg tablet extended release 24 hr 50 mg PO DAILY 30 Days Qty: 0 0RF tamsulosin 0.4 mg capsule See Rx Instructions .ROUTE .COMPLEX 30 Days Qty: 90 0RF Dose Instruction: TAKE 1 CAPSULE BY MOUTH EVERY MORNING Rx Instructions: TAKE 1 CAPSULE BY MOUTH EVERY MORNING midodrine 2.5 mg Tablet 5 mg PO TID 30 Days Qty: 180 0RF rosuvastatin 20 mg tablet 20 mg PO DAILY 30 Days Qty: 0 0RF Fruzaqla 5 mg capsule 5 mg PO .COMPLEX 30 Days Qty: 0 0RF Patient Comments: ON HOLD LAST DOSE July Rx Instructions: 5 mg orally; See External Prescription details Held clopidogrel 75 mg tablet 75 mg PO DAILY Hold Instructions: Resume on 03/23/25. On hold indefinitely per family. Restart if indicated per environmental studies department chair/PCP. Disregard resume date. Patient Comments: ON HOLD LAST DOSE 09/01/24 Discontinued triamcinolone acetonide 0.1 % cream 1 applic topical BID Qty: 80 1RF Date of admission: 02/15/25 10:33 Primary Care Provider: Kandy Rodriguez Admitting Provider: Carri Hamilton Attending physician on admission: Carri Hamilton Condition: Stable
== END 2025-02-21 15:42 | disposition home or self-care (01) | DRG 389 ==
LOC: ANHED 02-15 07:24 → ANH2MED 02-15 07:26
PROVIDERS: Internal Medicine; Internal Medicine Gastroenterology; Surgery; Admitting Provider Internal Medicine; Emergency Provider Registered Nurse; PCP Family Medicine; Visit Provider Student in an Organized Health Care Education/Training Program
PROC: 0DJD8ZZ Inspection of Lower Intestinal Tract, Via Natural or Artificial Opening Endoscopic (ICD-10-PCS; CPT 45378; principal; 2025-02-20 15:00)
DX: K56.609 Unspecified intestinal obstruction, unspecified as to partial versus complete obstruction (principal); C78.6 Secondary malignant neoplasm of retroperitoneum and peritoneum; K63.89 Other specified diseases of intestine; K64.8 Other hemorrhoids; N20.0 Calculus of kidney; E78.5 Hyperlipidemia, unspecified; I25.10 Atherosclerotic heart disease of native coronary artery without angina pectoris; I10 Essential (primary) hypertension; F10.21 Alcohol dependence, in remission; Z90.49 Acquired absence of other specified parts of digestive tract; Z87.891 Personal history of nicotine dependence; Z95.1 Presence of aortocoronary bypass graft; Z79.61 Long term (current) use of immunomodulator; Z79.69 Long term (current) use of other immunomodulators and immunosuppressants; Z85.038 Personal history of other malignant neoplasm of large intestine
CPT/HCPCS: 36415; 74019; 74177; 80048; 80053; 81001; 83690; 85025; 85027; 96374; 99285; A9270; G0378; J1650; J2003; J2270; J2704; J7120; Q9967

== ENCOUNTER 2025-02-27 07:55 | Emergency (ER) | payer MEDICARE, SELFPAY ==
[2025-02-27] VITALS (32 sets, daily range): BP systolic 107–148; BP diastolic 67–81; PULSE 46–64; RESP 10–24; TEMP 36.4; O2SAT 98–100
--- NOTE | ~2025-02-27 | CT_ITS ---
EXAM/PROCEDURE: CT abdomen pelvis w con HISTORY: abdominal pain COMPARISON: February 15, 2025 TECHNIQUE: Contrast-enhanced CT of abdomen and pelvis FINDINGS: Several loops of mildly distended small bowel with wall thickening and possible transition in the right lower quadrant; there is also a small amount of free fluid in the right hemiabdomen extending down the right paracolic gutter. No hydroureteronephrosis. 3 cm infrarenal abdominal aortic aneurysm unchanged with no acute convocation. No acute arterial occlusion seen. Cholecystectomy clips. Liver spleen pancreas adrenal glands kidneys and urinary bladder appear stable. In the lung bases, 1.6 x 1.4 cm nodule in the right lung base image 15 series 4. Lung bases otherwise clear. Heart size upper limits normal. IMPRESSION: 1. Findings possibly representing ileus versus early small bowel obstruction; inflammatory appearing changes involving the small bowel wall and adjacent free fluid could be associated with inflammatory or infectious enteritis. 2. 1.6 cm right lung base nodule. Correlate with dedicated chest CT or PET/CT. Reviewed, dictated and finalized at location A. R CHECKER ROVING OR YARN IMPRESSION: 1. Findings possibly representing ileus versus early small bowel obstruction; i nflammatory appearing changes involving the small bowel wall and adjacent free fluid could be associated with inflammatory or infectious enteritis. 2. 1.6 cm right lung base nodule. Correlate with dedicated chest CT or PET/CT.
[2025-02-27 09:55] LABS: Hematocrit 37.8 % (42.0-52.0); Hemoglobin 12.6 g/dL (14.0-18.0); Immature Granulocyte Percent A 0.4 % (0-0.5); Lymphocytes Absolute Auto 1.68 K/mm3 (0.9-3.2); Mean Corpuscular HGB Conc 33.3 g/dl (32-36); Mean Corpuscular Hemoglobin 34.0 pg (26-34); Mean Corpuscular Volume 101.9 fl (80-100); Nucleated Red Blood Cells Absolute Auto 0.000 K/mm3 (0.0-0.012); Nucleated Red Blood Cells Perc 0.0 % (0.0-0.2); Platelet Count Result 161 k/mm3 (150-375); Red Blood Count 3.71 M/mm3 (4.6-6.20); White Blood Count 4.9 K/mm3 (4.5-10.0)
--- NOTE | 2025-02-27 10:09 | ED.GENADULT ---
HPI - General Adult General Chief complaint: Abdominal Pain <JL Quiroz - Last Filed: 02/27/25 18:35> Stated complaint: ABD PAIN , HX BOWEL OBSTRUCTION <JL Quiroz - Last Filed: 02/27/25 18:35> Time Seen by Provider: 02/27/25 09:33 <JL Quiroz - Last Filed: 02/27/25 18:35> History of Present Illness HPI narrative: 84-year-old male with a past medical history of colon cancer and recent discharge on 02/20 for SBO presenting with intermittent and sharp right quadrant abdominal pain since yesterday. Patient's family member reports that the patient took a laxative on Thursday night then subsequently had diarrhea all day yesterday. Denies nausea/vomiting, melena/hematochezia, urinary concerns, fevers/chills, and chest pain/shortness of breath. Patient has a history of cholecystectomy but maintains having his appendix. <JL Quiroz - Last Filed: 02/27/25 18:35> Related Data Home medications: Home Medications ?Medication ?Instructions ?Recorded ?Confirmed ?Last Taken ?Type clopidogrel 75 mg tablet 75 mg PO DAILY 01/20/23 02/15/25 08/22/24 History Held on 02/21/25. Instructions: Resume on 03/23/25. On hold indefinitely per family. Restart if indicated per certified professional controller/PCP. Disregard resume date. 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 Leung. Cholelithiasis Bilateral inguinal hernia Achilles tendon tear <JL Quiroz - Last Filed: 02/27/25 18:35> Surgical History Surgical History: Surgical History Hx of laparoscopy 09/06/24 1. Laparoscopic removal of retained gallstone 2. Laparoscopic peritoneal biopsy 3. Laparoscopic adhesiolysis Dr. Graham Hx laparoscopic cholecystectomy 02/09/23 Status post dilation of urethral narrowing 11/03/23 History of cardiac catheterization 07/2022 with findings of coronary artery disease with recommendation of medical therapy due to high risk for PCI, on dual anti-platelet therapy History of lithotripsy (04/15/19) History of partial colectomy (04/09/09) Laparoscopic sigmoid colectomy for sigmoid adenocarcinoma. History of colonoscopy with polypectomy History of bilateral inguinal hernia repair (05/30/16) History of Achilles tendon repair (11/29/14) Right. History of colon resection (04/23/22) Hand assisted laparoscopic right hemicolectomy with ileocolic anastomosis, small bowel resection with side to side anastomosis, and extensive adhesiolysis. <JL Quiroz - Last Filed: 02/27/25 18:35> Family History Family History: Family History Sibling Throat cancer Other Family history non-contributory <JL Quiroz - Last Filed: 02/27/25 18:35> Social History Social History: Social History Social History: Patient smoked 1/2ppd x 20yrs but quit 45yrs ago. Hx of heavy alcohol use when he was young but no alcohol currently. No hx of drug use including IVDU. Lives at home with his . No pets. Surrogate medical decision maker: Theodore Bryant (son). Code status: Full code. Smoking packs per day: 0.5 Smoking cigarettes per day: 10.0 Years smoked: 20 Smoking pack-years: 10.00 Smoking status: Former smoker Second hand tobacco smoke exposure: No Additional smoking assessment comments: SON STATES PT STOPPED SMOKING ABOUT 45YRS AGO Alcohol intake: former Drinks per week: 1 Alcohol use details: RARELY - FEW TIMES A YEAR Substance use: never Substance use type: does not use Lack of Transportation: No Lack of Food: Never True Current Housing: I Have Housing Concerned About Future Housing: No Difficulty Paying Gas/Electric Bills: No Difficulty Paying for Meds: No Currently Unemployed: No Education: Decline to Answer Difficulty w/ Childcare or Family Care: No Living arrangements: with family Additional living arrangements comments: Occupation/Education: retired 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 Spiritual care concerns: No <JL Quiroz - Last Filed: 02/27/25 18:35> Exam Narrative: GENERAL: Well-appearing, well-nourished, and in no acute distress. HEAD: Normocephalic, atraumatic. EYES: PERRLA and EOMI. ENT: Nares clear, no rhinorrhea or epistaxis. Mucous membranes moist. Oropharynx without tonsillar hypertrophy exudate or other lesions. Bilateral TMs pearly tomlinson non-bulging NECK: Supple. No adenopathy or masses. No carotid bruits or JVD CHEST: Clear to auscultation. No respiratory distress. No wheezes rales or rhonchi HEART: Regular rate and rhythm. No murmur heard. Normal peripheral pulses. ABDOMEN: Nondistended, normal active bowel sounds. TTP of right upper and lower quadrant with some TTP along flank. EXTREMITIES: Normal range of motion. No edema. SKIN: Warm, dry, no rash. NEURO: No focal deficits. Alert and oriented x3. PSYCH: Normal mood and affect <JL Quiroz - Last Filed: 02/27/25 18:35> Course MANAGER OF LEARNING/PA Physician Supervision This visit was performed by both a physician and an APC; I performed all aspects of the medical decision making component of this evaluation as documented. Briefly, patient with history of SBO presents here with symptoms concerning for this again, CT showing possible partial SBO versus ileus, he is no longer nauseous, has no significant pain, had a bowel movement earlier today, was offered admission here the but declines this and would rather go home, understands the need to be on bowel rest with clears at the start, close follow-up to PCP and GI/surgery, with strict return precautions. <Terri Hu MD - Last Filed: 02/27/25 15:08> Vital Signs Vital signs: Vital Signs Temperature 97.5 F L 02/27/25 08:00 Pulse Rate 64 02/27/25 08:00 Respiratory Rate 16 02/27/25 08:00 Blood Pressure 109/67 02/27/25 08:00 Pulse Oximetry 100 02/27/25 08:00 Oxygen Delivery Room Air 02/27/25 08:00 Temperature 97.5 F L 02/27/25 08:00 Pulse Rate 53 L 02/27/25 14:31 Respiratory Rate 14 02/27/25 14:31 Blood Pressure 136/81 02/27/25 14:30 Pulse Oximetry 100 02/27/25 14:30 Oxygen Delivery Room Air 02/27/25 09:32 <JL Quiroz - Last Filed: 02/27/25 18:35> Vital Signs Temperature 97.5 F L 02/27/25 08:00 Pulse Rate 64 02/27/25 08:00 Respiratory Rate 16 02/27/25 08:00 Blood Pressure 109/67 02/27/25 08:00 Pulse Oximetry 100 02/27/25 08:00 Oxygen Delivery Room Air 02/27/25 08:00 Temperature 97.5 F L 02/27/25 08:00 Pulse Rate 53 L 02/27/25 14:31 Respiratory Rate 14 02/27/25 14:31 Blood Pressure 136/81 02/27/25 14:30 Pulse Oximetry 100 02/27/25 14:30 Oxygen Delivery Room Air 02/27/25 09:32 <Terri Hu MD - Last Filed: 02/27/25 15:08> MDM MDM Narrative Medical decision making narrative: 84-year-old male with a past medical history of colon cancer and recent discharge on 02/20 for SBO presenting with intermittent and sharp right quadrant abdominal pain since yesterday. Patient's family member reports that the patient took a laxative on Thursday night then subsequently had diarrhea all day yesterday. Denies nausea/vomiting, melena/hematochezia, urinary concerns, fevers/chills, and chest pain/shortness of breath. Patient has a history of cholecystectomy but maintains having his appendix. Upon my initial assessment patient appears stable and nontoxic. Labs remain stable and unchanged compared to his last hospitalization. Imaging demonstrates findings possibly representing ileus versus early small bowel obstruction; inflammatory appearing changes involving the small bowel wall and adjacent free fluid could be associated with inflammatory or infectious enteritis. 1.6 cm right lung base nodule. Patient and family members are aware of the lung nodule. Results were discussed with the patient. Patient's son had concerns for nephrolithiasis due to findings from previous hospitalization; no nephrolithiasis identified on imaging. All imaging and plan were reviewed with ER provider Dr. Hu who agreed with workup and plan. Plan is to discharge home advising bowel rest with a clear liquid diet for the next few days as well as antibiotics for the enteritis identified on imaging and Zofran. A GI referral was given for ongoing constipation concerns amongst other ongoing GI diagnoses. Administered fluids. Patient declined pain medicine here and for home. Differential diagnosis and treatment plan were discussed thoroughly with the patient and the patient's family. Utilized shared medical decision making with the patient and family and we are in agreement that the patient would benefit from bowel rest and hydration at home rather than in the hospital as he will be more comfortable at home. All questions were answered to the patient's and family's satisfaction. The patient is appropriate for outpatient treatment and follow-up. Patient's family members have been given strict return precautions if the patient's disposition worsens. <JL Quiroz - Last Filed: 02/27/25 18:35> Differential Diagnosis Differential Diagnosis: Differential diagnostic considerations for acute abdominal pain include surgical abdominal etiology, ischemic bowel, inflammatory bowel disease, gastritis, PUD, gastroenteritis, cardiac etiology, appendicitis, diverticulitis, bowel obstruction, kidney stone, pyelonephritis, abdominal aortic aneurysm, pancreatitis, constipation, endometriosis. <JL Quiroz - Last Filed: 02/27/25 18:35> Medical Records I have reviewed the following patient records and this information was taken into consideration when formulating the assessment and plan.: previous labs, previous ER visits and previous hospitalizations <JL Quiroz - Last Filed: 02/27/25 18:35> Lab Data MDM Lab Attestation statement: I personally reviewed the patient's lab results. <JL Quiroz - Last Filed: 02/27/25 18:35> Result diagrams: 02/27/25 09:47 02/27/25 09:47 <JL Quiroz - Last Filed: 02/27/25 18:35> Labs: Lab Results 02/27/25 02/27/25 Range/Units 09:47 13:14 WBC 4.9 (4.5-10.0) K/mm3 RBC 3.71 L (4.6-6.20) M/mm3 Hgb 12.6 L (14.0-18.0) g/dL Hct 37.8 L (42.0-52.0) % MCV 101.9 H (80-100) fl MCH 34.0 (26-34) pg MCHC 33.3 (32-36) g/dl RDW 14.5 (11.5-14.5) % Plt Count 161 (150-375) k/mm3 MPV 9.0 (7.4-10.4) fl Immature Gran % (Auto) 0.4 (0-0.5) % Neut % (Auto) 56.1 (45.5-73.1) % Lymph % (Auto) 34.2 (18.3-44.2) % Johnson % (Auto) 7.5 (2.6-8.5) % Eos % (Auto) 1.0 (0-4.4) % Baso % (Auto) 0.8 (0.2-1.2) % Lymph # (Auto) 1.68 (0.9-3.2) K/mm3 Johnson # (Auto) 0.4 (0.1-0.6) K/mm3 Eos # (Auto) 0.1 (0-0.3) K/mm3 Baso # (Auto) 0.0 (0.0-0.1) K/mm3 Abs Immat Gran (auto) 0.02 (0.00-0.031) K/mm3 Absolute Neuts (auto) 2.8 (1.3-6.7) K/mm3 Absolute Nucleated RBC 0.000 (0.0-0.012) K/mm3 Nucleated RBC % 0.0 (0.0-0.2) % Sodium 136 L (137-145) mmol/L Potassium 4.1 (3.4-5.0) mmol/L Chloride 106 (98-107) mmol/L Carbon Dioxide 24 (22-30) mmol/L Anion Gap 6 (4-12) mmol/L BUN 18 (9-20) mg/dL Creatinine 0.90 (0.7-1.3) mg/dL Estim Creat Clear Calc 48 ml/min Estimated GFR > 60 (59 - ) Glucose 96 (65-110) mg/dL Calcium 8.8 (8.4-10.2) mg/dL Total Bilirubin 2.0 H (0.2-1.3) mg/dL AST 58 (17-59) U/L ALT 51 H (6-50) U/L Alkaline Phosphatase 102 (38-126) U/L Total Protein 7.7 (6.3-8.2) g/dL Albumin 4.0 (3.5-5.1) g/dL Lipase 42 (23-300) U/L Urine Color Yellow (Yellow) Urine Appearance Clear (Clear) Urine pH 6.5 (5.0-9.0) Ur Specific [place] 1.041 H (1.001-1.035) Urine Protein Negative (Negative) mg/dL Urine Glucose (UA) Negative (Negative) mg/dL Urine Ketones Negative (Negative) mg/dL Ur Blood (Man) Negative (Negative) Urine Nitrate Negative (Negative) Urine Bilirubin Negative (Negative) Urine Urobilinogen 1.0 (<2.0) mg/dL Leukocyte Esterase Rfl Negative (Negative) WENDIE/UL <JL Quiroz - Last Filed: 02/27/25 18:35> Lab Results 02/27/25 02/27/25 Range/Units 09:47 13:14 WBC 4.9 (4.5-10.0) K/mm3 RBC 3.71 L (4.6-6.20) M/mm3 Hgb 12.6 L (14.0-18.0) g/dL Hct 37.8 L (42.0-52.0) % MCV 101.9 H (80-100) fl MCH 34.0 (26-34) pg MCHC 33.3 (32-36) g/dl RDW 14.5 (11.5-14.5) % Plt Count 161 (150-375) k/mm3 MPV 9.0 (7.4-10.4) fl Immature Gran % (Auto) 0.4 (0-0.5) % Neut % (Auto) 56.1 (45.5-73.1) % Lymph % (Auto) 34.2 (18.3-44.2) % Johnson % (Auto) 7.5 (2.6-8.5) % Eos % (Auto) 1.0 (0-4.4) % Baso % (Auto) 0.8 (0.2-1.2) % Lymph # (Auto) 1.68 (0.9-3.2) K/mm3 Johnson # (Auto) 0.4 (0.1-0.6) K/mm3 Eos # (Auto) 0.1 (0-0.3) K/mm3 Baso # (Auto) 0.0 (0.0-0.1) K/mm3 Abs Immat Gran (auto) 0.02 (0.00-0.031) K/mm3 Absolute Neuts (auto) 2.8 (1.3-6.7) K/mm3 Absolute Nucleated RBC 0.000 (0.0-0.012) K/mm3 Nucleated RBC % 0.0 (0.0-0.2) % Sodium 136 L (137-145) mmol/L Potassium 4.1 (3.4-5.0) mmol/L Chloride 106 (98-107) mmol/L Carbon Dioxide 24 (22-30) mmol/L Anion Gap 6 (4-12) mmol/L BUN 18 (9-20) mg/dL Creatinine 0.90 (0.7-1.3) mg/dL Estim Creat Clear Calc 48 ml/min Estimated GFR > 60 (59 - ) Glucose 96 (65-110) mg/dL Calcium 8.8 (8.4-10.2) mg/dL Total Bilirubin 2.0 H (0.2-1.3) mg/dL AST 58 (17-59) U/L ALT 51 H (6-50) U/L Alkaline Phosphatase 102 (38-126) U/L Total Protein 7.7 (6.3-8.2) g/dL Albumin 4.0 (3.5-5.1) g/dL Lipase 42 (23-300) U/L Urine Color Yellow (Yellow) Urine Appearance Clear (Clear) Urine pH 6.5 (5.0-9.0) Ur Specific [place] 1.041 H (1.001-1.035) Urine Protein Negative (Negative) mg/dL Urine Glucose (UA) Negative (Negative) mg/dL Urine Ketones Negative (Negative) mg/dL Ur Blood (Man) Negative (Negative) Urine Nitrate Negative (Negative) Urine Bilirubin Negative (Negative) Urine Urobilinogen 1.0 (<2.0) mg/dL Leukocyte Esterase Rfl Negative (Negative) WENDIE/UL <Terri Hu MD - Last Filed: 02/27/25 15:08> Imaging Data Attestation: I personally reviewed and interpreted this imaging study as follows: <JL Quiroz - Last Filed: 02/27/25 18:35> Radiologist's impression: ITS Impressions Abdomen/Pelvis CT 02/27/25 10:50 IMPRESSION: 1. Findings possibly representing ileus versus early small bowel obstruction; inflammatory appearing changes involving the small bowel wall and adjacent free fluid could be associated with inflammatory or infectious enteritis. 2. 1.6 cm right lung base nodule. Correlate with dedicated chest CT or PET/CT. <JL Quiroz - Last Filed: 02/27/25 18:35> ITS Impressions Abdomen/Pelvis CT 02/27/25 10:50 IMPRESSION: 1. Findings possibly representing ileus versus early small bowel obstruction; inflammatory appearing changes involving the small bowel wall and adjacent free fluid could be associated with inflammatory or infectious enteritis. 2. 1.6 cm right lung base nodule. Correlate with dedicated chest CT or PET/CT. <Terri Hu MD - Last Filed: 02/27/25 15:08> Discharge Plan Discharge Clinical Impression: Abdominal pain, Enteritis <JL Quirzo Last Filed: 02/27/25 18:35> Patient Disposition: Home <JL Quiroz Last Filed: 02/27/25 18:35> Condition: Stable <JL Quiroz Last Filed: 02/27/25 18:35> Instructions: Antibiotic Form, Abdominal Pain (ED), Bowel Obstruction (ED), Ileus (ED) <JL Quiroz Last Filed: 02/27/25 18:35> Additional Instructions: Take Tylenol as needed for pain. Take anti-nausea as needed. Take antibiotics as prescribed. Return to the emergency department if you experience fever, abdominal pain with nausea and vomiting, pain or burning with urination, you are unable to keep down any liquids or solids, or any other symptoms that are concerning to you. Follow a clear liquid diet for the next 3-5 days then slowly begin adding back solid and bland foods. Hydrate. Follow-up with GI for ongoing concerns as discussed. Follow-up with PCP for any other general concerns. <JL Quiroz Last Filed: 02/27/25 18:35> Patient Language: Slovak <JL Quiroz Last Filed: 02/27/25 18:35> Prescriptions: New amoxicillin-pot clavulanate [Augmentin] 500-125 mg tablet 1 tablet PO TID Qty: 21 0RF ondansetron 4 mg tablet,disintegrating 4 mg PO Q6H PRN (Reason: nausea and vomiting) Qty: 20 0RF No Action clopidogrel 75 mg tablet 75 mg PO DAILY Patient Comments: ON HOLD LAST DOSE 09/01/24 simethicone 80 mg Tablet,Chewable 80 mg PO QID PRN (Reason: Abdominal Cramping) 5 Days Qty: 15 0RF metoprolol succinate 50 mg tablet extended release 24 hr 50 mg PO DAILY 30 Days Qty: 0 0RF tamsulosin 0.4 mg capsule See Rx Instructions .ROUTE .COMPLEX 30 Days Qty: 90 0RF Dose Instruction: TAKE 1 CAPSULE BY MOUTH EVERY MORNING Rx Instructions: TAKE 1 CAPSULE BY MOUTH EVERY MORNING midodrine 2.5 mg Tablet 5 mg PO TID 30 Days Qty: 180 0RF rosuvastatin 20 mg tablet 20 mg PO DAILY 30 Days Qty: 0 0RF Fruzaqla 5 mg capsule 5 mg PO .COMPLEX 30 Days Qty: 0 0RF Patient Comments: ON HOLD LAST DOSE July Rx Instructions: 5 mg orally; See External Prescription details <JL Quiroz - Last Filed: 02/27/25 18:35> Follow-up/Referrals: Alexis Carrillo MD [Physician, Gastroenterology] Kandy Rodriguez MD [Primary Care Provider, Family Practice] <JL Quiroz - Last Filed: 02/27/25 18:35>
[2025-02-27 10:18] LABS: Alanine Aminotransferase 51 U/L (6-50); Albumin Level 4.0 g/dL (3.5-5.1); Alkaline Phosphatase 102 U/L (38-126); Anion Gap 6 mmol/L (4-12); Aspartate Amino Transferase 58 U/L (17-59); Bilirubin,Total 2.0 mg/dL (0.2-1.3); Blood Urea Nitrogen 18 mg/dL (9-20); Calcium 8.8 mg/dL (8.4-10.2); Carbon Dioxide 24 mmol/L (22-30); Chloride 106 mmol/L (98-107); Estimated CRCL calculation 48 ml/min; Estimated Glomerular Filt Rate > 60; Glucose 96 mg/dL (65-110); Lipase 42 U/L (23-300); Potassium 4.1 mmol/L (3.4-5.0); Sodium 136 mmol/L (137-145); Total Protein 7.7 g/dL (6.3-8.2)
[2025-02-27] MEDS: SODIUM CHLORIDE 0.9% IV 1,000 ML 999 ML IV CONT (11:14)
--- NOTE | 2025-02-27 11:15 | PC.NURSE ---
Pt asked for urine sample x 2. Urinal placed at bedside and pt and family educated on importance of receiving urine sample for UA.
[2025-02-27 13:21] LABS: Add Urine Microscopic? NO; Appearance Urine Clear (Clear); Glucose Urine UA Negative (Negative); Leukocyte Esterase Ur Negative LEU/UL (Negative); Nitrate Urine Negative (Negative); Specific Grav Ur 1.041 (1.001-1.035)
== END 2025-02-27 14:50 | disposition home or self-care (01) ==
PROVIDERS: PCP Family Medicine
DX: K52.9 Noninfective gastroenteritis and colitis, unspecified (principal); R91.1 Solitary pulmonary nodule; I25.10 Atherosclerotic heart disease of native coronary artery without angina pectoris; Z85.038 Personal history of other malignant neoplasm of large intestine
CPT/HCPCS: 36415; 74177; 80053; 81003; 83690; 85025; 96360; 99284; J7030; Q9967

== ENCOUNTER 2025-03-12 09:18 | Inpatient (IN) | payer MEDICARE, SELFPAY ==
[2025-03-12] VITALS (25 sets, daily range): BP systolic 111–144; BP diastolic 70–82; PULSE 47–65; RESP 11–20; TEMP 36.6–36.8; O2SAT 99–100
--- NOTE | ~2025-03-12 | CT_ITS ---
CT abdomen pelvis w con Clinical History: diarrheal illness, hx colon ca, poss sbo . Comparison: 02/27/2025 Technique: Axial images lung bases to symphysis pubis IV contrast information not listed in PACS Coronal, sagittal reformats CT images acquired with automatic exposure control for dose reduction DLP: 213 mGy-cm Findings: Lung bases: 17 mm nodule central diaphragm right base. Recommend characterization as previously suggested. Visualized heart and pericardium: Coronary artery calcification. Liver: Small fluid collection along segment 2 tip. Gallbladder: Removed. Spleen: Unremarkable. Pancreas: Unremarkable. Adrenal glands: Unremarkable. Kidneys: Right kidney- No hydronephrosis. No renal stones. Left kidney- No hydronephrosis. Lower pole stone. Distal esophagus/stomach: Possible gastric antral wall thickening. Small bowel loops: Dilated loops, air-fluid levels. Lower abdominal suture line. Right upper quadrant suture line. Wall thickening loops right abdomen. Colon: Distal suture line. Nodes: No enlarged nodes. Peritoneum: No ascites. No free air. Urinary bladder: Unremarkable. Prostate: Unremarkable. Bones: No acute bony abnormality. Soft tissues: Unremarkable. Aorta: Fusiform ectasia to 29 mm. Atherosclerotic disease. IVC: Unremarkable. Main portal vein/SMV/splenic vein: Patent. IMPRESSION: 1. Small bowel obstruction. 2. Enteritis right hemiabdomen. 3. Persistent fluid collection or abscess along left lobe liver tip. 4. Additional findings per above. Reviewed, dictated and finalized at location [facility]. [employer]
--- NOTE | ~2025-03-12 | CT_ITS ---
EXAMINATION: CT abdomen pelvis w con DATE: 03/14/2025 12:16 INDICATION: Small bowel obstruction and recurrent enteritis TECHNIQUE: Computed tomography (CT) of the abdomen and pelvis was performed with 100 mL Omnipaque-350 intravenous contrast. Automated exposure control and iterative reconstruction technique were employed. The dose-length product was 322.13 mGy-cm. COMPARISON: CT studies dated 03/12/2025, 08/24/2024, 05/22/2023 and 10/29/2022 and MRI dated 12/18/2022 FINDINGS: Tiny bilateral posterior pleural effusions with minimal dependent atelectasis in the lower lobes. 1.7 cm relatively hypodense right lower lobe nodule with lobular margins located along the diaphragm which is concerning for metastatic disease. Heart size is mild cardiomegaly. No pericardial effusion. Ch olecystectomy clips the gallbladder fossa. 1.2 cm hypoechoic lesion at the caudal tip of the right hepatic lobe likely residual scarring at the site of a prior hepatic abscess which was drained in 08/24/2024. There is a 3.2 x 2.4 x 1.3 cm hypodense lesion at the lateral tip of segment 2 of liver situated between the diaphragm and the stomach. This lesion is chronic and has been slowly increasing in size also concerning for metastatic disease. Spleen, pancreas, bilateral adrenal glands and right kidney are normal. 6 mm nonobstructing stone at a lower pole calyx of the left kidney. Postoperative change of prior right hemicolectomy with patent ileocolic anastomosis in the right abdomen. There is an additional small bowel to small bowel anastomosis in the anterior lower abdomen. There is fluid throughout the small bowel extending into the proximal colon consistent with nonspecific diarrhea. There several segments of small bowel in the right abdomen demonstrating mild wall thickening consistent with an enteritis. There are few diverticula along the sigmoid colon without adjacent from trace stranding to suggest diverticulitis. Small dependent bladder stone. Postoperative change at the bilateral inguinal regions. No free intraperitoneal gas or fluid. No pathologically enlarged abdominal or pelvic lymphadenopathy. 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 Mild thoracic and lumbar spondylosis. IMPRESSION: 1. Wall thickening along several loops of small bowel in the right abdomen consistent with an enteritis which could be infectious, inflammatory or less likely ischemic in etiology. 2. Enlarging 1.7 cm right lower lobe nodule and enlarging 2.2 x 2.4 x 1.3 similar hyperdense lesion at the lateral tip of segment 2 of the liver which are both concerning for metastatic disease in this patient with known descending colon cancer post right hemicolectomy. 3. Nonobstructing 6 mm left renal stone and similar sized stone in the dependent bladder. 4. Mild cardiomegaly. 5. 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 Reviewed, dictated and finalized at location [facility]. [facility] IMPRESSION: 1. Wall thickening along several loops of small bowel in the right abdomen cons istent with an enteritis which could be infectious, inflammatory or less likely ischemic in etiology. 2. Enlarging 1.7 cm right lower lobe nodule and enlarging 2.2 x 2.4 x 1.3 simil ar hyperdense lesion at the lateral tip of segment 2 of the liver which are bot h concerning for metastatic disease in this patient with known descending colon cancer post right hemicolectomy. 3. Nonobstructing 6 mm left renal stone and similar sized stone in the dependen t bladder. 4. Mild cardiomegaly. 5. 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
[2025-03-12 11:00] LABS: Hematocrit 42.0 % (42.0-52.0); Hemoglobin 14.2 g/dL (14.0-18.0); Immature Granulocyte Percent A 0.2 % (0-0.5); Lymphocytes Absolute Auto 2.34 K/mm3 (0.9-3.2); Mean Corpuscular HGB Conc 33.8 g/dl (32-36); Mean Corpuscular Hemoglobin 34.1 pg (26-34); Mean Corpuscular Volume 100.7 fl (80-100); Nucleated Red Blood Cells Absolute Auto 0.000 K/mm3 (0.0-0.012); Nucleated Red Blood Cells Perc 0.0 % (0.0-0.2); Platelet Count Result 190 k/mm3 (150-375); Red Blood Count 4.17 M/mm3 (4.6-6.20); White Blood Count 5.3 K/mm3 (4.5-10.0)
--- NOTE | 2025-03-12 11:01 | ED.NAVMDI ---
HPI - Nausea/Vomiting/Diarrhea General Chief complaint: Nausea/Vomiting/Diarrhea Stated complaint: diarrhea X4 days Time Seen by Provider: 03/12/25 10:46 Source: patient and family Mode of arrival: ambulatory Limitations: no limitations History of Present Illness HPI Narrative: This is an 84-year-old male with history of colon cancer on daily chemotherapy, hypertension who presents the ED for diarrhea. Patient's son states that for the past few days, patient has been having watery diarrhea. He recently restarted his chemotherapy about a week ago. He has never had this side effect from his chemotherapy before. He apparently follows with oncology at [place] somewhere but the son does not recall where. He was recently admitted a month ago for abdominal pains. Denies fevers, chills, blood in stool. Patient's son states that the patient does appear weak to him. Related Data Home Medications ?Medication ?Instructions ?Recorded ?Confirmed ?Last Taken ?Type clopidogrel 75 mg tablet 75 mg PO DAILY 01/20/23 03/12/25 08/22/24 History Held on 02/21/25. Instructions: Resume on 03/23/25. On hold indefinitely per family. Restart if indicated per superintendent pipelines/PCP. Disregard resume date. 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 Leung. Kidney stones Cardiomegaly Aneurysm of infrarenal abdominal aorta Coronary artery disease History of hypertension Idiopathic stricture of urethra Diverticulitis Bilateral inguinal hernia Achilles tendon tear Surgical History Surgical History Hx laparoscopic cholecystectomy 02/09/23 Hx of laparoscopy 09/06/24 1. Laparoscopic removal of retained gallstone 2. Laparoscopic peritoneal biopsy 3. Laparoscopic adhesiolysis Dr. Graham Status post dilation of urethral narrowing 11/03/23 History of cardiac catheterization 07/2022 with findings of coronary artery disease with recommendation of medical therapy due to high risk for PCI, on dual anti-platelet therapy History of lithotripsy (04/15/19) History of partial colectomy (04/09/09) Laparoscopic sigmoid colectomy for sigmoid adenocarcinoma. History of colonoscopy with polypectomy History of bilateral inguinal hernia repair (05/30/16) History of Achilles tendon repair (11/29/14) Right. History of colon resection (04/23/22) Hand assisted laparoscopic right hemicolectomy with ileocolic anastomosis, small bowel resection with side to side anastomosis, and extensive adhesiolysis. Family History Family History Sibling Throat cancer Other Family history non-contributory Social History Social History Social History: Patient smoked 1/2ppd x 20yrs but quit 45yrs ago. Hx of heavy alcohol use when he was young but no alcohol currently. No hx of drug use including IVDU. Lives at home with his . No pets. Surrogate medical decision maker: Theodore Bryant (son). Code status: Full code. Smoking packs per day: 0.5 Smoking cigarettes per day: 10.0 Years smoked: 20 Smoking pack-years: 10.00 Smoking status: Never smoker Second hand tobacco smoke exposure: No Additional smoking assessment comments: SON STATES PT STOPPED SMOKING ABOUT 45YRS AGO Alcohol intake: never Drinks per week: 1 Alcohol use details: RARELY - FEW TIMES A YEAR Substance use: never Substance use type: does not use Lack of Transportation: No Lack of Food: Never True Current Housing: I Have Housing Concerned About Future Housing: No Difficulty Paying Gas/Electric Bills: No Difficulty Paying for Meds: No Currently Unemployed: No Education: Decline to Answer Difficulty w/ Childcare or Family Care: No Living arrangements: with family Additional living arrangements comments: Occupation/Education: retired 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 Spiritual care concerns: No Exam Narrative: APPEARANCE: No acute distress, nontoxic, resting in bed EYES: EOMI HEENT: Normocephalic, atraumatic, mucous membranes mildly dry RESPIRATORY: No respiratory distress Clear to auscultation bilaterally with no rhonchi wheezing or rales. CARDIOVASCULAR: Regular rate and rhythm without murmurs rubs or gallops. ABDOMINAL: Soft, nontender, nondistended, no rebound or guarding MUSCULOSKELETAl: Moves all extremities. No clubbing, cyanosis or edema. NEURO: Awake and alert. Following commands, speech normal, no focal deficits SKIN:: Warm, dry. No rashes lesions or abrasions PSYCHIATRIC: Normal affect/mood, Course Vital Signs Vital signs: Vital Signs Temperature 98.3 F 03/12/25 09:49 Pulse Rate 65 03/12/25 09:49 Respiratory Rate 18 03/12/25 09:49 Blood Pressure 113/76 03/12/25 09:49 Pulse Oximetry 100 03/12/25 09:49 Temperature 98.1 F 03/12/25 14:30 Pulse Rate 53 L 03/12/25 14:30 Respiratory Rate 16 03/12/25 14:30 Blood Pressure 144/82 H 03/12/25 14:30 Pulse Oximetry 100 03/12/25 14:30 [facility] MDM Narrative Medical decision making narrative: 84-year-old male Presenting for diarrhea. On initial evaluation patient was in no acute distress afebrile, hemodynamic stable. Differentials include but are not limited to: Electrolyte abnormality, small-bowel obstruction, gastroenteritis, enteritis, colitis, chemotherapy side effect Notable exam findings: Mucous membranes mildly dry, abdomen soft and nontender, nondistended. I personally reviewed the patient's lab result. Notable lab findings: CBC without significant abnormalities. Mild hyponatremia of 133, mild metabolic acidosis with bicarb at 19, T bili and AST/ALT slightly elevated. UA clear. CT abdomen/pelvis was consistent with a small-bowel obstruction, also noted small fluid collection near the liver. I discussed case with Dr. Willoughby, general surgery, will see the patient as consult, recommends broad-spectrum antibiotic while reviewing potential treatments for the liver collection. Discussed case with hospitalist who will admit the patient. Differential Diagnosis Differential Diagnosis: Electrolyte abnormality, small-bowel obstruction, gastroenteritis, enteritis, colitis, chemotherapy side effect Lab Data 03/12/25 10:54 03/12/25 10:54 Labs: Lab Results 03/12/25 03/12/25 Range/Units 10:54 12:23 WBC 5.3 (4.5-10.0) K/mm3 RBC 4.17 L (4.6-6.20) M/mm3 Hgb 14.2 (14.0-18.0) g/dL Hct 42.0 (42.0-52.0) % MCV 100.7 H (80-100) fl MCH 34.1 H (26-34) pg MCHC 33.8 (32-36) g/dl RDW 13.8 (11.5-14.5) % Plt Count 190 (150-375) k/mm3 MPV 9.2 (7.4-10.4) fl Immature Gran % (Auto) 0.2 (0-0.5) % Neut % (Auto) 48.2 (45.5-73.1) % Lymph % (Auto) 43.8 (18.3-44.2) % Sharp % (Auto) 6.4 (2.6-8.5) % Eos % (Auto) 0.7 (0-4.4) % Baso % (Auto) 0.7 (0.2-1.2) % Lymph # (Auto) 2.34 (0.9-3.2) K/mm3 Sharp # (Auto) 0.3 (0.1-0.6) K/mm3 Eos # (Auto) 0.0 (0-0.3) K/mm3 Baso # (Auto) 0.0 (0.0-0.1) K/mm3 Abs Immat Gran (auto) 0.01 (0.00-0.031) K/mm3 Absolute Neuts (auto) 2.6 (1.3-6.7) K/mm3 Absolute Nucleated RBC 0.000 (0.0-0.012) K/mm3 Nucleated RBC % 0.0 (0.0-0.2) % Sodium 133 L (137-145) mmol/L Potassium 4.8 (3.4-5.0) mmol/L Chloride 102 (98-107) mmol/L Carbon Dioxide 19 L (22-30) mmol/L Anion Gap 12 (4-12) mmol/L BUN 25 H (9-20) mg/dL Creatinine 1.19 (0.7-1.3) mg/dL Estim Creat Clear Calc 37 ml/min Estimated GFR 58 L (59 - ) Glucose 99 (65-110) mg/dL Calcium 9.9 (8.4-10.2) mg/dL Total Bilirubin 1.4 H (0.2-1.3) mg/dL AST 64 H (17-59) U/L ALT 56 H (6-50) U/L Alkaline Phosphatase 111 (38-126) U/L Total Protein 8.8 H (6.3-8.2) g/dL Albumin 4.6 (3.5-5.1) g/dL Lipase 47 (23-300) U/L Urine Color Yellow (Yellow) Urine Appearance Clear (Clear) Urine pH 5.0 (5.0-9.0) Ur Specific [place] 1.007 (1.001-1.035) Urine Protein Negative (Negative) mg/dL Urine Glucose (UA) Negative (Negative) mg/dL Urine Ketones Negative (Negative) mg/dL Ur Blood (Man) 1+ H (Negative) Urine Nitrate Negative (Negative) Urine Bilirubin Negative (Negative) Urine Urobilinogen 0.2 (<2.0) mg/dL Leukocyte Esterase Rfl Negative (Negative) WENDIE/UL Urine RBC 0-2 (0-2) /hpf Urine WBC 0-5 (0-3) /hpf Ur Squamous Epith Cells None seen (Few) /hpf Urine Bacteria None seen /hpf Urine Casts 0-2 Imaging Data Radiologist's impression: ITS Impressions Abdomen/Pelvis CT 03/12/25 13:01 IMPRESSION: 1. Small bowel obstruction. 2. Enteritis right hemiabdomen. 3. Persistent fluid collection or abscess along left lobe liver tip. 4. Additional findings per above. Discharge Plan Discharge Clinical Impression: SBO (small bowel obstruction) Colon cancer Qualifiers: Colon location: unspecified part of colon Qualified Code(s): C18.9 - Malignant neoplasm of colon, unspecified Patient Disposition: Still a Patient Condition: Stable
[2025-03-12] MEDS: SODIUM CHLORIDE 0.9% IV 1,000 ML 999 ML IV CONT ×2 (11:05→11:26)
[2025-03-12 11:10] LABS: Alanine Aminotransferase 56 U/L (6-50); Albumin Level 4.6 g/dL (3.5-5.1); Alkaline Phosphatase 111 U/L (38-126); Anion Gap 12 mmol/L (4-12); Aspartate Amino Transferase 64 U/L (17-59); Bilirubin,Total 1.4 mg/dL (0.2-1.3); Blood Urea Nitrogen 25 mg/dL (9-20); Calcium 9.9 mg/dL (8.4-10.2); Carbon Dioxide 19 mmol/L (22-30); Chloride 102 mmol/L (98-107); Estimated CRCL calculation 37 ml/min; Estimated Glomerular Filt Rate 58; Glucose 99 mg/dL (65-110); Lipase 47 U/L (23-300); Potassium 4.8 mmol/L (3.4-5.0); Sodium 133 mmol/L (137-145); Total Protein 8.8 g/dL (6.3-8.2)
[2025-03-12 12:34] LABS: Add Urine Microscopic? YES; Appearance Urine Clear (Clear); Glucose Urine UA Negative (Negative); Leukocyte Esterase Ur Negative LEU/UL (Negative); Nitrate Urine Negative (Negative); Non Pathogenic Casts 0-2; Specific Grav Ur 1.007 (1.001-1.035)
[2025-03-12] MEDS: SODIUM CHLORIDE 0.9% IV 1,000 ML 125 ML IV CONT (13:55)
--- NOTE | 2025-03-12 14:33 | WPCEDHO ---
ED Hand Off Checklist All vitals saved:y IV Site documented:y All med administrations documented:y Triage Note Triage Note Patient to the ED with complaints 03/12/25 10:57 of abdominal pain and diarrhea X4 days. per family, patient has history of colon cancer and re- started his cancer medication a week ago. Patient in on distress at time of triage. Allergies No Known Allergies Allergy (Unknown, Verified 02/27/25 09:45) Family History (Last Reviewed 03/12/25 @ 11:02 by Giorgio Onofre DO) Sibling Throat cancer Other Family history non-contributory Active Medications including assessments/comments Sodium Chloride (Normal Saline Iv) 1,000 mls @ 125 mls/hr IV CONT .Q8H CORINNE Last Admin: 03/12/25 13:55 Dose: 125 mls/hr Documented By: ALICIA Infusion/Titration Document 03/12/25 13:55 ALICIA (Rec: 03/12/25 13:55 ALICIA [id number]) Intake IV Site Peripheral Access Right Antecubital Container Volume 1,000 Waste Amount 0 Dosing Infusion Rate 125 Cumulative Dose Not Applicable Increase/Decrease Started Elapsed Time Elapsed Time ( 0m minutes) Administered/Completed Medications Discontinued Medications Sodium Chloride (Normal Saline Iv) 1,000 mls @ 999 mls/hr IV CONT .Q1H1M STA Stop: 03/12/25 11:54 Last Infusion: 03/12/25 12:14 Dose: Infused Documented By: Admin: 03/12/25 11:05 Dose: 999 mls/hr Documented By: ALICIA Sodium Chloride (Normal Saline Iv) 1,000 mls @ 999 mls/hr IV CONT .Q1H1M STA Stop: 03/12/25 12:11 Last Infusion: 03/12/25 12:26 Dose: Infused Documented By: Admin: 03/12/25 11:26 Dose: 999 mls/hr Documented By: ALICIA Interventions/Assessments IV / Saline Lock, Insert Start: 03/12/25 10:46 Freq: STAT Status: Active Protocol: Document 03/12/25 10:56 ALICIA (Rec: 03/12/25 10:57 ALICIA [id number]) IV Assessment Peripheral Access Right Antecubital IV Catheter Access Initiated IV Insertion Date 03/12/25 IV Insertion Time 10:56 Catheter Gauge 20 IV Insertion 1 Attempts Ultrasound Used for No Placement IV Site Assessment WNL IV Care and WNL Maintenance PA: Gastrointestinal Assessment Start: 03/12/25 09:18 Freq: Status: Active Protocol: Document 03/12/25 10:56 ALICIA (Rec: 03/12/25 10:57 ELB [id number]) GI Assessment Gastrointestinal Diarrhea,Pain Symptoms Description Soft All Quadrants Bowel Sounds Active Pattern Diarrhea Date of Last Bowel 03/12/25 Movement Last Vital Signs Temperature 98.1 F 03/12/25 14:30 Pulse Rate 53 L 03/12/25 14:30 Respiratory Rate 16 03/12/25 14:30 Pulse Oximetry 100 03/12/25 14:30 Blood Pressure 144/82 H 03/12/25 14:30 Blood Pressure Mean 102 03/12/25 14:30 Weight 64 kg 03/12/25 10:57 Last Result - Abnormals Only RBC 4.17 M/mm3 (4.6-6.20) L 03/12/25 10:54 MCV 100.7 fl (80-100) H 03/12/25 10:54 MCH 34.1 pg (26-34) H 03/12/25 10:54 Sodium 133 mmol/L (137-145) L 03/12/25 10:54 Carbon Dioxide 19 mmol/L (22-30) L 03/12/25 10:54 BUN 25 mg/dL (9-20) H 03/12/25 10:54 Estimated GFR 58 (59-) L 03/12/25 10:54 Total Bilirubin 1.4 mg/dL (0.2-1.3) H 03/12/25 10:54 AST 64 U/L (17-59) H 03/12/25 10:54 ALT 56 U/L (6-50) H 03/12/25 10:54 Total Protein 8.8 g/dL (6.3-8.2) H 03/12/25 10:54 Ur Blood (Man) 1+ (Negative) H 03/12/25 12:23 Most Recent Suicide Severity Rating Suicide Severity Rating NO RISK INDICATED 03/12/25 10:57
[2025-03-12] MEDS: PIPERACILLIN/TAZOBACTAM SOD 4.5 GM in SODIUM CHLORIDE 0.9% IV 100 ML 200 ML IVPB (17:26)
[2025-03-12 19:03] LABS: Toxigenic C. Diff NEGATIVE (NEGATIVE)
--- NOTE | 2025-03-12 20:10 | P.HP_ITS ---
H&P: HPI History of Present Illness Date/Time: 03/12/25 20:10 Chief Complaint: Abdominal Pain, Diarrhea Narrative: 84 y/o M with PMH of aneurysm of the infrarenal abdominal aorta, colon cancer on chemotherapy and s/p hemicolectomy, diverticulitis, kidney stones, hypertension, hyperlipidemia presents here with abdominal pain and diarrhea. The patient presents here on 03/12 for further evaluation of abdominal pain and diarrhea. HPI obtained to patient report, family report, and chart review. Per the patient's son, the patient has been experiencing watery diarrhea for the past few days. Reporting mild generalized weakness and abdominal pain. He is reporting associated abdominal pain that he describes as right sided, 2-3/10, nonradiating, intermittent, lasts for 30 seconds and would resolve. Pain less severe than yesterday. Denies associated fever, chills, black/tarry stools, bright red blood per rectum. Patient noted to have history of metastatic colon cancer for which he has recently restarted chemotherapy for within the past week. Follows with Oncology in [place], however son is unsure which facility. Reports when he has previously been on chemotherapy he has not had these types of symptoms. Per chart review, patient was admitted here from 02/15/2025 to 02/21/2025 for a small-bowel obstruction that was treated conservatively. He did undergo a colonoscopy on 02/20. Initial VS at presentation: 98.3? F, HR 65, R 18, 113/76, and 100% on RA. ED workup showed: No leukocytosis, no anemia, sodium 133, creatinine 1.19 and GFR 58, total bilirubin 1.4/AST 64, ALT 56. UA had 1+ blood otherwise unremarkable. CT of the abdomen/pelvis showed a small bowel obstruction, enteritis of the right hemiabdomen, persistent fluid collection or abscess along the left lobe liver tip as well as additional findings (see report). Review of Systems Review of Systems: All systems reviewed & are unremarkable except as noted in HPI and below [facility] Past Medical History Medical History (Updated 03/12/25 @ 21:20 by Tayler Saldana, ROSALINA) History of urinary retention BPH associated with nocturia Colon cancer 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 Leung. Kidney stones Cardiomegaly Aneurysm of infrarenal abdominal aorta Coronary artery disease History of hypertension Idiopathic stricture of urethra Diverticulitis Bilateral inguinal hernia Achilles tendon tear Surgical History Surgical History Hx laparoscopic cholecystectomy 02/09/23 Hx of laparoscopy 09/06/24 1. Laparoscopic removal of retained gallstone 2. Laparoscopic peritoneal biopsy 3. Laparoscopic adhesiolysis Dr. Graham Status post dilation of urethral narrowing 11/03/23 History of cardiac catheterization 07/2022 with findings of coronary artery disease with recommendation of medical therapy due to high risk for PCI, on dual anti-platelet therapy History of lithotripsy (04/15/19) History of partial colectomy (04/09/09) Laparoscopic sigmoid colectomy for sigmoid adenocarcinoma. History of colonoscopy with polypectomy History of bilateral inguinal hernia repair (05/30/16) History of Achilles tendon repair (11/29/14) Right. History of colon resection (04/23/22) Hand assisted laparoscopic right hemicolectomy with ileocolic anastomosis, small bowel resection with side to side anastomosis, and extensive adhesiolysis. Family History Family History Sibling Throat cancer Other Family history non-contributory Social History Social History Social History: Patient smoked 1/2ppd x 20yrs but quit 45yrs ago. Hx of heavy alcohol use when he was young but no alcohol currently. No hx of drug use including IVDU. Lives at home with his . No pets. Surrogate medical decision maker: Theodore Bryant (son). Code status: Full code. Smoking packs per day: 0.5 Smoking cigarettes per day: 10.0 Years smoked: 20 Smoking pack-years: 10.00 Smoking status: Never smoker Second hand tobacco smoke exposure: No Additional smoking assessment comments: SON STATES PT STOPPED SMOKING ABOUT 45YRS AGO Alcohol intake: never Drinks per week: 1 Alcohol use details: RARELY - FEW TIMES A YEAR Substance use: never Substance use type: does not use Lack of Transportation: No Lack of Food: Never True Current Housing: I Have Housing Concerned About Future Housing: No Difficulty Paying Gas/Electric Bills: No Difficulty Paying for Meds: No Currently Unemployed: No Education: Decline to Answer Difficulty w/ Childcare or Family Care: No Living arrangements: with family Additional living arrangements comments: Occupation/Education: retired 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 Spiritual care concerns: No Meds Home Medications and Allergies Home Medications ?Medication ?Instructions ?Recorded ?Confirmed ?Type clopidogrel 75 mg tablet 75 mg PO DAILY 01/20/2302/21 History Held on 02/21/25. Instructions: Resume on 03/23/25. On hold indefinitely per family. Restart if indicated per mission support specialist/PCP. Disregard resume date. metoprolol succinate 50 mg 50 mg PO DAILY 30 days #0 t abs 02/21/25 03/12/25 Rx tablet,extended release 24 hr rosuvastatin 20 mg tablet 20 mg PO DAILY 30 days #0 ta bs 02/21/25 03/12/25 Rx simethicone 80 mg chewable tablet 80 mg PO QID PRN Abd ominal 02/21/25 03/12/25 Rx Cramping 5 days #15 tabs tamsulosin 0.4 mg capsule See Rx Instructions .Route 1 04/24/24 03/12/25 Rx .COMPLEX 30 days #90 caps ondansetron 4 mg disintegrating 4 mg PO Q6H PRN nausea and 02/27/25 03/12/25 Rx tablet vomiting #20 tabs fruquintinib 5 mg capsule 5 mg PO DAILY Chemotherapy 1 05/13/24 03/12/25 History (Fruzaqla) Allergies Allergy/AdvReac Type Severity Reaction Status Date / Time No Known Allergies Allergy Unknown Verified 03/12/25 15:05 Vital Signs Vital Signs - 24 hr 03/12/25 09:49 03/12/25 10:49 03/12/25 10:50 Temperature 98.3 F Pulse Rate 65 61 Respiratory Rate 18 12 Blood Pressure 113/76 125/80 Pulse Oximetry 100 100 100 03/12/25 10:57 03/12/25 11:00 03/12/25 11:06 Temperature Pulse Rate 60 57 L 56 L Respiratory Rate 16 13 13 Blood Pressure 125/80 111/76 Pulse Oximetry 99 99 100 03/12/25 11:15 03/12/25 11:16 03/12/25 11:17 Temperature Pulse Rate 53 L 54 L 53 L Respiratory Rate 11 L 17 20 Blood Pressure 128/79 Pulse Oximetry 99 99 100 03/12/25 11:30 03/12/25 11:31 03/12/25 11:45 Temperature Pulse Rate 53 L 54 L 47 L Respiratory Rate 12 15 16 Blood Pressure 136/76 Pulse Oximetry 100 100 100 03/12/25 11:46 03/12/25 12:00 03/12/25 12:01 Temperature Pulse Rate 47 L 48 L 47 L Respiratory Rate 11 L 18 13 Blood Pressure 144/72 H 144/70 H Pulse Oximetry 100 100 100 03/12/25 12:21 03/12/25 12:47 03/12/25 13:00 Temperature Pulse Rate 53 L 51 L Respiratory Rate 15 18 12 Blood Pressure Pulse Oximetry 100 100 03/12/25 13:15 03/12/25 13:30 03/12/25 13:45 Temperature Pulse Rate 51 L 53 L 53 L Respiratory Rate 12 11 L 14 Blood Pressure Pulse Oximetry 03/12/25 14:00 03/12/25 14:15 03/12/25 14:30 Temperature 98.1 F Pulse Rate 65 58 L 53 L Respiratory Rate 11 L 14 16 Blood Pressure 144/82 H Pulse Oximetry 100 100 100 Exam Const: General: comfortable and no acute distress Other: , male, nontoxic appearance HENMT: Face/Nose/Sinus: Normal nares present Mouth: Yes moist mucous membranes Eyes: General: appearance normal, both eyes and all related structures Sclera: sclerae normal Pupils: Equal, round and reactive pupils present EOM: EOMs intact bilaterally Resp: Effort & Inspection: normal respiratory effort Auscultation: clear to auscultation bilaterally Cardio: Rate: regular rate Rhythm: regular rhythm Other: S1-S2 present without murmur, rub, ectopy GI: Other: Abdomen soft and nondistended. Tenderness in the right upper quadrant. Hyperactive bowel sounds in the upper quadrants and right lower quadrant. More so hypoactive in the left lower quadrant. Skin: General skin exam: normal color and no rashes or lesions noted Wounds: no wounds Neuro: Speech: normal speech Motor exam (neuro): 5/5 motor strength present throughout Sensory Exam: normal sensation Other: A&O x4 Extrem: General: normal to inspection Psych: Mental Status: mental status grossly normal Affect: normal affect Other: Good insight and judgment, very pleasant Results Labs Labs: Short CBC 03/12/25 Range/Units 10:54 WBC 5.3 (4.5-10.0) K/mm3 Hgb 14.2 (14.0-18.0) g/dL Hct 42.0 (42.0-52.0) % Plt Count 190 (150-375) k/mm3 BMP 03/12/25 10:54 Sodium 133 L Potassium 4.8 Chloride 102 Carbon Dioxide 19 L BUN 25 H Creatinine 1.19 Glucose 99 Calcium 9.9 Liver Function 03/12/25 Range/Units 10:54 Total Bilirubin 1.4 H (0.2-1.3) mg/dL AST 64 H (17-59) U/L ALT 56 H (6-50) U/L Alkaline Phosphatase 111 (38-126) U/L Albumin 4.6 (3.5-5.1) g/dL Urine 03/12/25 Range/Units 12:23 Urine Color Yellow (Yellow) Urine Appearance Clear (Clear) Urine pH 5.0 (5.0-9.0) Ur Specific [place] 1.007 (1.001-1.035) Urine Protein Negative (Negative) mg/dL Urine Glucose (UA) Negative (Negative) mg/dL Quality VTE Prophylaxis VTE prophylaxis: mechanical ordered Assessment and Plan Assessment and plan (1) SBO (small bowel obstruction): Code(s): K56.609 - Unspecified intestinal obstruction, unspecified as to partial versus complete obstruction Status: Acute Assessment and Plan: Patient here with diarrhea and abdominal pain x4 days, abdominal pain less severe than yesterday and more so right upper quadrant. CT of the abdomen/pelvis done in the ER during his initial evaluation on 03/12 showed a small bowel obstruction. No current active nausea or vomiting. Per chart review, patient had small-bowel obstruction that he was treated for here at [facility] from 02/15/25 to 02/21/25. Manage conservatively. CT additionally showing concerns for enteritis of the right hemiabdomen. - general surgery consulted - no current active nausea or vomiting, will forego NG tube at this time. If patient develops profuse nausea vomiting, plan for placement - IV fluids - NPO with hypoglycemia protocol and D5/LR maintenance fluids (2) Enteritis: Code(s): K52.9 - Noninfective gastroenteritis and colitis, unspecified Status: Acute Assessment and Plan: CT of the abdomen/pelvis from 03/12 that was performed in the emergency department showed enteritis of the right hemiabdomen. No current leukocytosis, vital signs stable. No fever or chills. - check stool cultures and C diff due to recent hospitalization >> C diff negative on 03/12 - noted to have a concurrent fluid collection or abscess along the left lobe liver tip, persistent - started on Zosyn on 03/12 (3) Abnormal CT of the abdomen: Code(s): R93.5 - Abnormal findings on diagnostic imaging of other abdominal regions, including retroperitoneum Status: Acute Assessment and Plan: CT of the abdomen/pelvis done in the emergency department on 03/12 showed a persistent fluid collection or abscess along the left lobe liver tip. CT of the abdomen/pelvis from 02/27 noted a small amount of free fluid in the right hemiabdomen extending down the right pericolic gutter. Patient also noted to have ultrasound-guided drainage of a perihepatic abscess back in August of 2024. 18 mL of opaque ruiz purulent-appearing fluid obtained at that time. Wound culture at that time grew E coli, pansensitive. - general surgery consulted - started on Zosyn on 03/12 (4) Metastatic colon cancer to liver: Code(s): C18.9 - Malignant neoplasm of colon, unspecified; C78.7 - Secondary malignant neoplasm of liver and intrahepatic bile duct Status: Acute Assessment and Plan: Patient has history of colon cancer with metastases to the liver. No recent imaging showed a right lung lower lobe mass 1.4 cm suspicious for metastasis. Currently follows with Dr Leung ([phone]) for his oncology care. (5) Elevated LFTs: Code(s): R79.89 - Other specified abnormal findings of blood chemistry Status: Acute Assessment and Plan: Total bilirubin 1.4, AST 64, ALT 56 upon admission on 03/12. Has no colon cancer with metastases to the liver. - trend LFTs (6) HTN (hypertension): Qualifiers: Hypertension type: primary hypertension Qualified Code(s): I10 - Essential (primary) hypertension Code(s): I10 - Essential (primary) hypertension Status: Chronic Assessment and Plan: - chronic, currently 144/82, stable. - continue home medications: Metoprolol ER 50 mg daily - monitor Plan Diet: NPO GI Prophylaxis: N/a DVT Prophylaxis: SCDs IV fluids: 2L -> D5/LR 100 mL/hour Lines/Tubes: pIV Code Status: Full code Prior Studies I have reviewed the following patient records and this information was taken into consideration when formulating the assessment and plan.: previous labs, previous ER visits, previous hospitalizations and previous clinic visits Time Spent with Patient Time with patient: less than 45 minutes Hospitalist MIPS Advance Care Plan I have confirmed that the patient's Advanced Care Plan is present, code status is documented, or surrogate decision maker is listed in patient medical record.: Yes Medication Reconciliation I have utilized all available resources to obtain, update and review the pat ients current medications (includes all prescriptions, OTC, herbals, cannabis, and nutritional supplements).: Yes
[2025-03-12] MEDS: DEXTROSE 5%/LACTATED RINGERS 1,000 ML 100 ML IV CONT (20:41)
[2025-03-13] MEDS: PIPERACILLIN/TAZOBACTAM SOD 2.25 GM in SODIUM CHLORIDE 0.9% IV 50 ML 100 ML IVPB ×5 (00:45→23:35)
[2025-03-13 04:00] VITALS: BP 118/72; PULSE 46; RESP 18; TEMP 36.6; O2SAT 99
[2025-03-13] MEDS: DEXTROSE 5%/LACTATED RINGERS 1,000 ML 100 ML IV CONT ×2 (05:48→18:11)
[2025-03-13 06:33] LABS: Hematocrit 34.1 % (42.0-52.0); Hemoglobin 11.6 g/dL (14.0-18.0); Immature Granulocyte Percent A 0.3 % (0-0.5); Lymphocytes Absolute Auto 1.46 K/mm3 (0.9-3.2); Mean Corpuscular HGB Conc 34.0 g/dl (32-36); Mean Corpuscular Hemoglobin 34.4 pg (26-34); Mean Corpuscular Volume 101.2 fl (80-100); Nucleated Red Blood Cells Absolute Auto 0.000 K/mm3 (0.0-0.012); Nucleated Red Blood Cells Perc 0.0 % (0.0-0.2); Platelet Count Result 138 k/mm3 (150-375); Red Blood Count 3.37 M/mm3 (4.6-6.20); White Blood Count 3.6 K/mm3 (4.5-10.0)
[2025-03-13 06:56] LABS: Anion Gap 6 mmol/L (4-12); Blood Urea Nitrogen 17 mg/dL (9-20); Calcium 8.0 mg/dL (8.4-10.2); Carbon Dioxide 17 mmol/L (22-30); Chloride 112 mmol/L (98-107); Estimated CRCL calculation 44 ml/min; Estimated Glomerular Filt Rate > 60; Glucose 78 mg/dL (65-110); Potassium 3.9 mmol/L (3.4-5.0); Sodium 135 mmol/L (137-145)
--- NOTE | 2025-03-13 07:40 | PM.IMPN2 ---
Assessment and Plan Assessment and Plan (1) SBO (small bowel obstruction): Code(s): K56.609 - Unspecified intestinal obstruction, unspecified as to partial versus complete obstruction Status: Acute Assessment and Plan: Patient here with diarrhea and abdominal pain x4 days, abdominal pain less severe than yesterday and more so right upper quadrant. CT of the abdomen/pelvis done in the ER during his initial evaluation on 03/12 showed a small bowel obstruction. No current active nausea or vomiting. Per chart review, patient had small-bowel obstruction that he was treated for here at [facility] from 02/15/25 to 02/21/25. Manage conservatively. CT additionally showing concerns for enteritis of the right hemiabdomen. - general surgery consulted - no current active nausea or vomiting, will forego NG tube at this time. If patient develops profuse nausea vomiting, plan for placement - IV fluids - NPO with hypoglycemia protocol and D5/LR maintenance fluids ok to advance diet per surgery (2) Enteritis: Code(s): K52.9 - Noninfective gastroenteritis and colitis, unspecified Status: Acute Assessment and Plan: CT of the abdomen/pelvis from 03/12 that was performed in the emergency department showed enteritis of the right hemiabdomen. No current leukocytosis, vital signs stable. No fever or chills. - check stool cultures and C diff due to recent hospitalization >> C diff negative on 03/12 - noted to have a concurrent fluid collection or abscess along the left lobe liver tip, persistent - started on Zosyn on 03/12 (3) Abnormal CT of the abdomen: Code(s): R93.5 - Abnormal findings on diagnostic imaging of other abdominal regions, including retroperitoneum Status: Acute Assessment and Plan: CT of the abdomen/pelvis done in the emergency department on 03/12 showed a persistent fluid collection or abscess along the left lobe liver tip. CT of the abdomen/pelvis from 02/27 noted a small amount of free fluid in the right hemiabdomen extending down the right pericolic gutter. Patient also noted to have ultrasound-guided drainage of a perihepatic abscess back in August of 2024. 18 mL of opaque ruiz purulent-appearing fluid obtained at that time. Wound culture at that time grew E coli, pansensitive. - general surgery consulted - started on Zosyn on 03/12 (4) Metastatic colon cancer to liver: Code(s): C18.9 - Malignant neoplasm of colon, unspecified; C78.7 - Secondary malignant neoplasm of liver and intrahepatic bile duct Status: Acute Assessment and Plan: Patient has history of colon cancer with metastases to the liver. No recent imaging showed a right lung lower lobe mass 1.4 cm suspicious for metastasis. Currently follows with Dr Leung ([phone]) for his oncology care. (5) Elevated LFTs: Code(s): R79.89 - Other specified abnormal findings of blood chemistry Status: Acute Assessment and Plan: Total bilirubin 1.4, AST 64, ALT 56 upon admission on 03/12. Has no colon cancer with metastases to the liver. - trend LFTs (6) HTN (hypertension): Qualifiers: Hypertension type: primary hypertension Qualified Code(s): I10 - Essential (primary) hypertension Code(s): I10 - Essential (primary) hypertension Status: Chronic Assessment and Plan: - chronic, currently 144/82, stable. - continue home medications: Metoprolol ER 50 mg daily - monitor Plan Diet: NPO GI Prophylaxis: N/a DVT Prophylaxis: SCDs IV fluids: 2L -> D5/LR 100 mL/hour Lines/Tubes: pIV Code Status: Full code Medical Record Review I have reviewed the following patient records and this information was taken into consideration when formulating the assessment and plan.: previous labs Time Spent With Patient Time with patient: Greater than 35 minutes Subjective Date/time seen: 03/13/25 07:40 Interval history: 84 y/o M with PMH of aneurysm of the infrarenal abdominal aorta, colon cancer on chemotherapy and s/p hemicolectomy, diverticulitis, kidney stones, hypertension, hyperlipidemia presents here with abdominal pain and diarrhea. The patient presents here on 03/12 for further evaluation of abdominal pain and diarrhea. HPI obtained to patient report, family report, and chart review. Per the patient's son, the patient has been experiencing watery diarrhea for the past few days. Reporting mild generalized weakness and abdominal pain. He is reporting associated abdominal pain that he describes as right sided, 2-3/10, nonradiating, intermittent, lasts for 30 seconds and would resolve. Pain less severe than yesterday. Denies associated fever, chills, black/tarry stools, bright red blood per rectum. Patient noted to have history of metastatic colon cancer for which he has recently restarted chemotherapy for within the past week. Follows with Oncology in [place], however son is unsure which facility. Reports when he has previously been on chemotherapy he has not had these types of symptoms. Per chart review, patient was admitted here from 02/15/2025 to 02/21/2025 for a small-bowel obstruction that was treated conservatively. He did undergo a colonoscopy on 02/20. Initial VS at presentation: 98.3? F, HR 65, R 18, 113/76, and 100% on RA. ED workup showed: No leukocytosis, no anemia, sodium 133, creatinine 1.19 and GFR 58, total bilirubin 1.4/AST 64, ALT 56. UA had 1+ blood otherwise unremarkable. CT of the abdomen/pelvis showed a small bowel obstruction, enteritis of the right hemiabdomen, persistent fluid collection or abscess along the left lobe liver tip as well as additional findings (see report). pt is seen and examined. he is calm and comfortable, surgery ok with advancing diet. he does not need PT/OT as he is doing well. Review of Systems Review of Systems: All systems reviewed & are unremarkable except as noted in HPI and below Exam Const: General: comfortable and no acute distress Other: , male, nontoxic appearance HENMT: Face/Nose/Sinus: Normal nares present Mouth: Yes moist mucous membranes Eyes: General: appearance normal, both eyes and all related structures Sclera: sclerae normal Pupils: Equal, round and reactive pupils present EOM: EOMs intact bilaterally Resp: Effort & Inspection: normal respiratory effort Auscultation: clear to auscultation bilaterally Cardio: Rate: regular rate Rhythm: regular rhythm Other: S1-S2 present without murmur, rub, ectopy GI: GI Palp: Yes Soft to palpation Auscultation: normal bowel sounds Other: Abdomen soft and nondistended. Tenderness in the right upper quadrant. Hyperactive bowel sounds in the upper quadrants and right lower quadrant. Skin: General skin exam: normal color and no rashes or lesions noted Wounds: no wounds Neuro: Cranial nerves: Yes Equal, round and reactive pupils present Speech: normal speech Motor exam (neuro): 5/5 motor strength present throughout Sensory Exam: normal sensation Other: A&O x4 Extrem: General: normal to inspection Psych: Mental Status: mental status grossly normal Affect: normal affect Other: Good insight and judgment, very pleasant Objective Data Vital Signs Vital Signs: Vital Signs - 24 hr 03/12/25 09:49 03/12/25 10:49 03/12/25 10:50 Temperature 98.3 F Pulse Rate 65 61 Respiratory Rate 18 12 Blood Pressure 113/76 125/80 Pulse Oximetry 100 100 100 Oxygen Delivery 03/12/25 10:57 03/12/25 11:00 03/12/25 11:06 Temperature Pulse Rate 60 57 L 56 L Respiratory Rate 16 13 13 Blood Pressure 125/80 111/76 Pulse Oximetry 99 99 100 Oxygen Delivery 03/12/25 11:15 03/12/25 11:16 03/12/25 11:17 Temperature Pulse Rate 53 L 54 L 53 L Respiratory Rate 11 L 17 20 Blood Pressure 128/79 Pulse Oximetry 99 99 100 Oxygen Delivery 03/12/25 11:30 03/12/25 11:31 03/12/25 11:45 Temperature Pulse Rate 53 L 54 L 47 L Respiratory Rate 12 15 16 Blood Pressure 136/76 Pulse Oximetry 100 100 100 Oxygen Delivery 03/12/25 11:46 03/12/25 12:00 03/12/25 12:01 Temperature Pulse Rate 47 L 48 L 47 L Respiratory Rate 11 L 18 13 Blood Pressure 144/72 H 144/70 H Pulse Oximetry 100 100 100 Oxygen Delivery 03/12/25 12:21 03/12/25 12:47 03/12/25 13:00 Temperature Pulse Rate 53 L 51 L Respiratory Rate 15 18 12 Blood Pressure Pulse Oximetry 100 100 Oxygen Delivery 03/12/25 13:15 03/12/25 13:30 03/12/25 13:45 Temperature Pulse Rate 51 L 53 L 53 L Respiratory Rate 12 11 L 14 Blood Pressure Pulse Oximetry Oxygen Delivery 03/12/25 14:00 03/12/25 14:15 03/12/25 14:30 Temperature 98.1 F Pulse Rate 65 58 L 53 L Respiratory Rate 11 L 14 16 Blood Pressure 144/82 H Pulse Oximetry 100 100 100 Oxygen Delivery 03/12/25 20:00 03/12/25 20:52 03/13/25 04:00 Temperature 97.8 F 97.9 F Pulse Rate 55 L 46 L Respiratory Rate 19 18 Blood Pressure 112/78 118/72 Pulse Oximetry 99 99 Oxygen Delivery Room Air Intake/Output Intake/Output: Intake & Output 03/10/25 03/11/25 03/12/25 03/13/25 23:59 23:59 23:59 23:59 Intake Total 1999 961.7 Balance 1999 961.7 Meds/Results Medications: Active Medications Generic Name Dose Route Start Last Admin Trade Name Freq PRN Reason Stop Dose Admin Acetaminophen 650 mg 03/12/25 14:42 Acetaminophen 325 Mg Tablet PO Q6H PRN Mild Pain (1-3) or Fever Hydrocodone Bitart/Acetaminophen 1 tab 03/12/25 14:42 Hydrocodone/Acetaminophen (*Crx) 5-325 Mg Tablet PO Q6H PRN Pain Rated 4-6 Dextrose 12.5 gm 03/12/25 14:41 Dextrose 50% 25 Gm/50 Ml Syringe IV PUSH PRN PRN Hypoglycemia Protocol Dicyclomine HCl 20 mg 03/12/25 14:42 Dicyclomine Hcl 10 Mg Capsule PO QID PRN Abdominal Cramping Glucagon 1 mg 03/12/25 14:41 Glucagon For Inj 1 Mg Vial IM PRN PRN Hypoglycemia Protocol Glucose 15 gm 03/12/25 14:41 Glucose Oral Gel 15 Gm Of Glucse In 37.5 Gm Tube PO PRN PRN Hypoglycemia Protocol Dextrose 1,000 mls @ 100 mls/hr 03/12/25 14:41 Dextrose 5% 1,000 Ml IVPB PRN PRN Hypoglycemia Protocol Dextrose/Lactated Ringer's 1,000 mls @ 100 mls/hr 03/12/25 20:15 03/13/25 05:48 Dextrose 5%/Lactated Ringers IV CONT 100 mls/hr .Q10H CORINNE Administration Piperacillin Sod/Tazobactam 50 mls @ 100 mls/hr 03/13/25 00:00 03/13/25 05:41 Sod 2.25 gm/ Sodium Chloride IVPB 100 mls/hr Q6H CORINNE Administration Metoprolol Succinate 50 mg 03/13/25 09:00 Metoprolol Succinate Ext Rel 50 Mg Tabcr PO DAILY CORINNE Miscellaneous Information 1 each 03/13/25 00:01 Fruzaqla Is Nonform; Can Pt Bring From Home? XX 04/12/25 00:00 [facility] Non-Formulary Medication 5 mg 03/13/25 09:00 Fruquintinib [Fruzaqla] PO 04/12/25 08:59 DAILY [facility] Tamsulosin HCl 0.4 mg 03/13/25 09:00 Tamsulosin Hcl 0.4 [facility] ITS Impressions Abdomen/Pelvis CT 03/12/25 13:01 IMPRESSION: 1. Small bowel obstruction. 2. Enteritis right hemiabdomen. 3. Persistent fluid collection or abscess along left lobe liver tip. 4. Additional findings per above. Labs Labs: Laboratory Results - last 24 hr 03/12/25 03/12/25 03/12/25 10:54 12:23 17:45 WBC 5.3 RBC 4.17 L Hgb 14.2 Hct 42.0 MCV 100.7 H MCH 34.1 H MCHC 33.8 RDW 13.8 Plt Count 190 MPV 9.2 Immature Gran % (Auto) 0.2 Neut % (Auto) 48.2 Lymph % (Auto) 43.8 [place] % (Auto) 6.4 Eos % (Auto) 0.7 Baso % (Auto) 0.7 Lymph # (Auto) 2.34 [place] # (Auto) 0.3 Eos # (Auto) 0.0 Baso # (Auto) 0.0 Abs Immat Gran (auto) 0.01 Absolute Neuts (auto) 2.6 Absolute Nucleated RBC 0.000 Nucleated RBC % 0.0 Sodium 133 L Potassium 4.8 Chloride 102 Carbon Dioxide 19 L Anion Gap 12 BUN 25 H Creatinine 1.19 Estim Creat Clear Calc 37 Estimated GFR 58 L Glucose 99 POC Capillary Glucose Calcium 9.9 Total Bilirubin 1.4 H AST 64 H ALT 56 H Alkaline Phosphatase 111 Total Protein 8.8 H Albumin 4.6 Lipase 47 Urine Color Yellow Urine Appearance Clear Urine pH 5.0 Ur Specific [place] 1.007 Urine Protein Negative Urine Glucose (UA) Negative Urine Ketones Negative Ur Blood (Man) 1+ H Urine Nitrate Negative Urine Bilirubin Negative Urine Urobilinogen 0.2 Leukocyte Esterase Rfl Negative Urine RBC 0-2 Urine WBC 0-5 Ur Squamous Epith Cells None seen Urine Bacteria None seen Urine Casts 0-2 C. difficile (PCR) Negative 03/12/25 03/13/25 03/13/25 18:59 00:22 06:07 WBC 3.6 L RBC 3.37 L Hgb 11.6 L Hct 34.1 L MCV 101.2 H MCH 34.4 H MCHC 34.0 RDW 14.0 Plt Count 138 L MPV 9.5 Immature Gran % (Auto) 0.3 Neut % (Auto) 48.6 Lymph % (Auto) 41.0 [place] % (Auto) 7.0 Eos % (Auto) 2.8 Baso % (Auto) 0.3 Lymph # (Auto) 1.46 [place] # (Auto) 0.3 Eos # (Auto) 0.1 Baso # (Auto) 0.0 Abs Immat Gran (auto) 0.01 Absolute Neuts (auto) 1.7 Absolute Nucleated RBC 0.000 Nucleated RBC % 0.0 Sodium 135 L Potassium 3.9 Chloride 112 H Carbon Dioxide 17 L Anion Gap 6 BUN 17 Creatinine 0.98 Estim Creat Clear Calc 44 Estimated GFR > 60 Glucose 78 POC Capillary Glucose 80 97 Calcium 8.0 L Total Bilirubin AST ALT Alkaline Phosphatase Total Protein Albumin Lipase Urine Color Urine Appearance Urine pH Ur Specific [place] Urine Protein Urine Glucose (UA) Urine Ketones Ur Blood (Man) Urine Nitrate Urine Bilirubin Urine Urobilinogen Leukocyte Esterase Rfl Urine RBC Urine WBC Ur Squamous Epith Cells Urine Bacteria Urine Casts C. difficile (PCR) 03/13/25 06:26 WBC RBC Hgb Hct MCV MCH MCHC RDW Plt Count MPV Immature Gran % (Auto) Neut % (Auto) Lymph % (Auto) [place] % (Auto) Eos % (Auto) Baso % (Auto) Lymph # (Auto) [place] # (Auto) Eos # (Auto) Baso # (Auto) Abs Immat Gran (auto) Absolute Neuts (auto) Absolute Nucleated RBC Nucleated RBC % Sodium Potassium Chloride Carbon Dioxide Anion Gap BUN Creatinine Estim Creat Clear Calc Estimated GFR Glucose POC Capillary Glucose 89 Calcium Total Bilirubin AST ALT Alkaline Phosphatase Total Protein Albumin Lipase Urine Color Urine Appearance Urine pH Ur Specific [place] Urine Protein Urine Glucose (UA) Urine Ketones Ur Blood (Man) Urine Nitrate Urine Bilirubin Urine Urobilinogen Leukocyte Esterase Rfl Urine RBC Urine WBC Ur Squamous Epith Cells Urine Bacteria Urine Casts C. difficile (PCR) Quality VTE Prophylaxis VTE prophylaxis: mechanical ordered
[2025-03-13 08:00] VITALS: BP 120/68; PULSE 45; RESP 18; TEMP 36; O2SAT 100
--- NOTE | 2025-03-13 10:27 | PM.CNGS ---
Assessment and Plan Assessment and plan (1) Enteritis: Code(s): K52.9 - Noninfective gastroenteritis and colitis, unspecified Status: Acute Assessment and Plan: Patient presented the emergency department yesterday with complaints of diarrhea since last Thursday. He noted associated nausea at the time, no vomiting. patient was recently seen in the emergency department on 02/27/2025 for abdominal pain and discharged home with return precautions. prior to this he was admitted to the hospital about a month ago for a small-bowel obstruction that was managed non operatively. Being that patient continues to have bowel function and does not feel nauseous, this is not likely a true bowel obstruction. Likely enteritis. No NG placement. No surgical intervention necessary at this time. General surgery team will sign off at this time. Recommend patient follow up with his concologist. Could consider GI consult for recurrent enteritis. (2) SBO (small bowel obstruction): Code(s): K56.609 - Unspecified intestinal obstruction, unspecified as to partial versus complete obstruction Status: Acute Assessment and Plan: See above. Manage nonoperatively. (3) Abnormal CT of the abdomen: Code(s): R93.5 - Abnormal findings on diagnostic imaging of other abdominal regions, including retroperitoneum Status: Acute Assessment and Plan: Persistent fluid collection or abscess along the left lobe liver tip found on CT yesterday. Previous CT on 02/27/2025 demonstrated ileus versus small-bowel obstruction, inflammatory appearing changes with adjacent free fluid to small bowel wall. Patient has a normal white blood cell count. Not likely infectious process. (4) Metastatic colon cancer to liver: Code(s): C18.9 - Malignant neoplasm of colon, unspecified; C78.7 - Secondary malignant neoplasm of liver and intrahepatic bile duct Status: Acute Assessment and Plan: Patient just started back on his chemotherapy last week. He should follow up with his oncologist. Plan Discussed patient's case and plan of care with Dr. Graham. History of Present Illness Consult details Consult date: 03/13/25 Reason for consult: other (SBO) Requesting physician: Giorgio Onofre DO Narrative: Patient is an 84 year old male with history of colon cancer status post right hemicolectomy in April 2022, cholecystectomy in January 2023, retained gallstone removal in August 2024, and small bowel obstruction January 2025 who we have been asked to see in surgical consultation for a small bowel obstruction. Patient presented to the ED yesterday with complaints of diarrhea that started roughly 5 days ago. He had some associated diffuse abdominal pain and nausea, but no vomiting. Loss of appetite. Of note, patient recently was restarted on his chemotherapy 7 days ago after a 5 week break from it. He denies ever having significant side effects from this medication. Patient was recently treated conservatively for SBO during a hospital admission last month from 02/15-02/21. He was seen again in the OR a week after that discharge for abdominal pain. CT at this time demonstrated possible ileus vs SBO with inflammatory changes to small bowel and adjacent free fluid collection. Patient was discharged from ED with instructions for clear liquid diet. Upon this most recent admission, CT demonstrated a small bowel obstruction, enteritis right hemiabdomen, persistent fluid collection/abscess along left lobe liver tip. Labs revealed a normal WBC. Patient continues to have diarrhea with his last bowel movement last night. He is passing gas. Denies any abdominal pain today, but endorses some diffuse mid-abdominal pain earlier in the week. Also notes some right flank pain. Denies any nausea currently. [facility] Past Medical History Medical History (Updated 03/12/25 @ 21:20 by Tayler Saldana, ROSALINA) History of urinary retention BPH associated with nocturia Colon cancer 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 Leung. Kidney stones Cardiomegaly Aneurysm of infrarenal abdominal aorta Coronary artery disease History of hypertension Idiopathic stricture of urethra Diverticulitis Bilateral inguinal hernia Achilles tendon tear Surgical History Surgical History Hx laparoscopic cholecystectomy 02/09/23 Hx of laparoscopy 09/06/24 1. Laparoscopic removal of retained gallstone 2. Laparoscopic peritoneal biopsy 3. Laparoscopic adhesiolysis Dr. Graham Status post dilation of urethral narrowing 11/03/23 History of cardiac catheterization 07/2022 with findings of coronary artery disease with recommendation of medical therapy due to high risk for PCI, on dual anti-platelet therapy History of lithotripsy (04/15/19) History of partial colectomy (04/09/09) Laparoscopic sigmoid colectomy for sigmoid adenocarcinoma. History of colonoscopy with polypectomy History of bilateral inguinal hernia repair (05/30/16) History of Achilles tendon repair (11/29/14) Right. History of colon resection (04/23/22) Hand assisted laparoscopic right hemicolectomy with ileocolic anastomosis, small bowel resection with side to side anastomosis, and extensive adhesiolysis. Family History Family History Sibling Throat cancer Other Family history non-contributory Social History Social History Social History: Patient smoked 1/2ppd x 20yrs but quit 45yrs ago. Hx of heavy alcohol use when he was young but no alcohol currently. No hx of drug use including IVDU. Lives at home with his . No pets. Surrogate medical decision maker: Theodore Bryant (son). Code status: Full code. Smoking packs per day: 0.5 Smoking cigarettes per day: 10.0 Years smoked: 20 Smoking pack-years: 10.00 Smoking status: Never smoker Second hand tobacco smoke exposure: No Additional smoking assessment comments: SON STATES PT STOPPED SMOKING ABOUT 45YRS AGO Alcohol intake: never Drinks per week: 1 Alcohol use details: RARELY - FEW TIMES A YEAR Substance use: never Substance use type: does not use Lack of Transportation: No Lack of Food: Never True Current Housing: I Have Housing Concerned About Future Housing: No Difficulty Paying Gas/Electric Bills: No Difficulty Paying for Meds: No Currently Unemployed: No Education: Decline to Answer Difficulty w/ Childcare or Family Care: No Living arrangements: with family Additional living arrangements comments: Occupation/Education: retired 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 Spiritual care concerns: No Meds Home Medications and Allergies Home Medications ?Medication ?Instructions ?Recorded ?Confirmed ?Type clopidogrel 75 mg tablet 75 mg PO DAILY 01/20/23 03/12/25 History Held on 02/21/25. Instructions: Resume on 03/23/25. On hold indefinitely per family. Restart if indicated per wet crown blocking operator/PCP. Disregard resume date. metoprolol succinate 50 mg 50 mg PO DAILY 30 days #0 tabs 02/21/25 03/12/25 Rx tablet,extended release 24 hr rosuvastatin 20 mg tablet 20 mg PO DAILY 30 days #0 tabs 02/21/25 03/12/25 Rx simethicone 80 mg chewable tablet 80 mg PO QID PRN Abdominal 02/21/25 03/12/25 Rx Cramping 5 days #15 tabs tamsulosin 0.4 mg capsule See Rx Instructions .Route 02/21/25 03/12/25 Rx .COMPLEX 30 days #90 caps ondansetron 4 mg disintegrating 4 mg PO Q6H PRN nausea and 02/27/25 03/12/25 Rx tablet vomiting #20 tabs fruquintinib 5 mg capsule 5 mg PO DAILY Chemotherapy 03/12/25 03/12/25 History (Fruzaqla) Allergies Allergy/AdvReac Type Severity Reaction Status Date / Time No Known Allergies Allergy Unknown Verified 03/12/25 15:05 Vital Signs Vital Signs - 24 hr 03/12/25 10:49 03/12/25 10:50 03/12/25 10:57 Temperature Pulse Rate 61 60 Respiratory Rate 12 16 Blood Pressure 125/80 125/80 Pulse Oximetry 100 100 99 Oxygen Delivery 03/12/25 11:00 03/12/25 11:06 03/12/25 11:15 Temperature Pulse Rate 57 L 56 L 53 L Respiratory Rate 13 13 11 L Blood Pressure 111/76 Pulse Oximetry 99 100 99 Oxygen Delivery 03/12/25 11:16 03/12/25 11:17 03/12/25 11:30 Temperature Pulse Rate 54 L 53 L 53 L Respiratory Rate 17 20 12 Blood Pressure 128/79 Pulse Oximetry 99 100 100 Oxygen Delivery 03/12/25 11:31 03/12/25 11:45 03/12/25 11:46 Temperature Pulse Rate 54 L 47 L 47 L Respiratory Rate 15 16 11 L Blood Pressure 136/76 144/72 H Pulse Oximetry 100 100 100 Oxygen Delivery 03/12/25 12:00 03/12/25 12:01 03/12/25 12:21 Temperature Pulse Rate 48 L 47 L 53 L Respiratory Rate 18 13 15 Blood Pressure 144/70 H Pulse Oximetry 100 100 100 Oxygen Delivery 03/12/25 12:47 03/12/25 13:00 03/12/25 13:15 Temperature Pulse Rate 51 L 51 L Respiratory Rate 18 12 12 Blood Pressure Pulse Oximetry 100 Oxygen Delivery 03/12/25 13:30 03/12/25 13:45 03/12/25 14:00 Temperature Pulse Rate 53 L 53 L 65 Respiratory Rate 11 L 14 11 L Blood Pressure Pulse Oximetry 100 Oxygen Delivery 03/12/25 14:15 03/12/25 14:30 03/12/25 20:00 Temperature 98.1 F 97.8 F Pulse Rate 58 L 53 L 55 L Respiratory Rate 14 16 19 Blood Pressure 144/82 H 112/78 Pulse Oximetry 100 100 99 Oxygen Delivery 03/12/25 20:52 03/13/25 04:00 03/13/25 08:00 Temperature 97.9 F 96.8 F L Pulse Rate 46 L 45 L Respiratory Rate 18 18 Blood Pressure 118/72 120/68 Pulse Oximetry 99 100 Oxygen Delivery Room Air Exam Const: General: comfortable and no acute distress Eyes: General: appearance normal, both eyes and all related structures Neck: Neck: supple Resp: Effort & Inspection: normal respiratory effort Cardio: Rate: bradycardic GI: Inspection: non-distended GI Palp: Yes Soft to palpation, No Tenderness to palpation present (GI) and No Guarding due to palpation present (GI) Auscultation: normal bowel sounds Skin: General skin exam: normal color and no rashes or lesions noted Extrem: General: normal to inspection Psych: Mental Status: mental status grossly normal Results Labs 03/13/25 06:07 03/13/25 06:07 Labs: Abnormal lab results 03/12/25 03/12/25 03/13/25 Range/Units 10:54 12:23 06:07 WBC 3.6 L (4.5-10.0) K/mm3 RBC 4.17 L 3.37 L (4.6-6.20) M/mm3 Hgb 11.6 L (14.0-18.0) g/dL Hct 34.1 L (42.0-52.0) % MCV 100.7 H 101.2 H (80-100) fl MCH 34.1 H 34.4 H (26-34) pg Plt Count 138 L (150-375) k/mm3 Sodium 133 L 135 L (137-145) mmol/L Chloride 112 H (98-107) mmol/L Carbon Dioxide 19 L 17 L (22-30) mmol/L BUN 25 H (9-20) mg/dL Estimated GFR 58 L (59 - ) Calcium 8.0 L (8.4-10.2) mg/dL Total Bilirubin 1.4 H (0.2-1.3) mg/dL AST 64 H (17-59) U/L ALT 56 H (6-50) U/L Total Protein 8.8 H (6.3-8.2) g/dL Ur Blood (Man) 1+ H (Negative) Diabetes panel 03/12/25 03/13/25 Range/Units 10:54 06:07 Sodium 133 L 135 L (137-145) mmol/L Potassium 4.8 3.9 (3.4-5.0) mmol/L Chloride 102 112 H (98-107) mmol/L Carbon Dioxide 19 L 17 L (22-30) mmol/L BUN 25 H 17 (9-20) mg/dL Creatinine 1.19 0.98 (0.7-1.3) mg/dL Glucose 99 78 (65-110) mg/dL Calcium 9.9 8.0 L (8.4-10.2) mg/dL AST 64 H (17-59) U/L ALT 56 H (6-50) U/L Alkaline Phosphatase 111 (38-126) U/L Total Protein 8.8 H (6.3-8.2) g/dL Albumin 4.6 (3.5-5.1) g/dL Calcium panel 03/12/25 03/13/25 Range/Units 10:54 06:07 Calcium 9.9 8.0 L (8.4-10.2) mg/dL Albumin 4.6 (3.5-5.1) g/dL Pituitary panel 03/12/25 03/13/25 Range/Units 10:54 06:07 Sodium 133 L 135 L (137-145) mmol/L Potassium 4.8 3.9 (3.4-5.0) mmol/L Chloride 102 112 H (98-107) mmol/L Carbon Dioxide 19 L 17 L (22-30) mmol/L BUN 25 H 17 (9-20) mg/dL Creatinine 1.19 0.98 (0.7-1.3) mg/dL Glucose 99 78 (65-110) mg/dL Calcium 9.9 8.0 L (8.4-10.2) mg/dL Adrenal panel 03/12/25 03/13/25 Range/Units 10:54 06:07 Sodium 133 L 135 L (137-145) mmol/L Potassium 4.8 3.9 (3.4-5.0) mmol/L Chloride 102 112 H (98-107) mmol/L Carbon Dioxide 19 L 17 L (22-30) mmol/L BUN 25 H 17 (9-20) mg/dL Creatinine 1.19 0.98 (0.7-1.3) mg/dL Glucose 99 78 (65-110) mg/dL Calcium 9.9 8.0 L (8.4-10.2) mg/dL Total Bilirubin 1.4 H (0.2-1.3) mg/dL AST 64 H (17-59) U/L ALT 56 H (6-50) U/L Alkaline Phosphatase 111 (38-126) U/L Total Protein 8.8 H (6.3-8.2) g/dL Albumin 4.6 (3.5-5.1) g/dL All other labs normal.
[2025-03-13 12:00] VITALS: BP 151/75; PULSE 49; RESP 18; TEMP 36.1; O2SAT 100
[2025-03-13] MEDS: METOPROLOL SUCCINATE EXT REL 50 MG TABCR PO (15:43)
[2025-03-13 16:00] VITALS: BP 127/77; PULSE 52; RESP 18; TEMP 36.2; O2SAT 100
[2025-03-13 20:00] VITALS: BP 132/69; PULSE 51; RESP 18; TEMP 36.4; O2SAT 100
[2025-03-14] VITALS (9 sets, daily range): BP systolic 117–157; BP diastolic 69–86; PULSE 45–76; RESP 16–18; TEMP 35.6–36.8; O2SAT 95–100
[2025-03-14] MEDS: DEXTROSE 5%/LACTATED RINGERS 1,000 ML 115 ML IV CONT ×2 (00:30→03:20)
[2025-03-14] MEDS: PIPERACILLIN/TAZOBACTAM SOD 2.25 GM in SODIUM CHLORIDE 0.9% IV 50 ML 100 ML IVPB ×3 (05:14→17:08)
[2025-03-14] MEDS: METOPROLOL SUCCINATE EXT REL 50 MG TABCR PO (08:37)
[2025-03-14] MEDS: TAMSULOSIN HCL 0.4 MG CAPSULE PO (08:37)
[2025-03-14 09:36] LABS: Hematocrit 37.8 % (42.0-52.0); Hemoglobin 12.8 g/dL (14.0-18.0); Mean Corpuscular HGB Conc 33.9 g/dl (32-36); Mean Corpuscular Hemoglobin 34.3 pg (26-34); Mean Corpuscular Volume 101.3 fl (80-100); Platelet Count Result 163 k/mm3 (150-375); Red Blood Count 3.73 M/mm3 (4.6-6.20); White Blood Count 3.1 K/mm3 (4.5-10.0)
[2025-03-14 10:04] LABS: Anion Gap 6 mmol/L (4-12); Blood Urea Nitrogen 6 mg/dL (9-20); Calcium 8.5 mg/dL (8.4-10.2); Carbon Dioxide 25 mmol/L (22-30); Chloride 107 mmol/L (98-107); Estimated CRCL calculation 51 ml/min; Estimated Glomerular Filt Rate > 60; Glucose 91 mg/dL (65-110); Potassium 3.5 mmol/L (3.4-5.0); Sodium 138 mmol/L (137-145)
--- NOTE | 2025-03-14 12:41 | P.CONGI_ITS ---
Assessment and Plan Assessment and plan (1) SBO (small bowel obstruction): Code(s): K56.609 - Unspecified intestinal obstruction, unspecified as to partial versus complete obstruction Status: Acute (2) Enteritis: Code(s): K52.9 - Noninfective gastroenteritis and colitis, unspecified Status: Acute (3) Colon cancer: Qualifiers: Colon location: unspecified part of colon Qualified Code(s): C18.9 - Malignant neoplasm of colon, unspecified Code(s): C18.9 - Malignant neoplasm of colon, unspecified Status: Acute (4) Metastatic colon cancer to liver: Code(s): C18.9 - Malignant neoplasm of colon, unspecified; C78.7 - Secondary malignant neoplasm of liver and intrahepatic bile duct Status: Acute (5) Liver abscess: Code(s): K75.0 - Abscess of liver Status: Acute (6) Elevated LFTs: Code(s): R79.89 - Other specified abnormal findings of blood chemistry Status: Acute (7) Abnormal CT of the abdomen: Code(s): R93.5 - Abnormal findings on diagnostic imaging of other abdominal regions, including retroperitoneum Status: Acute (8) Leukopenia due to antineoplastic chemotherapy: Code(s): D70.1 - Agranulocytosis secondary to cancer chemotherapy; T45.1X5A - Adverse effect of antineoplastic and immunosuppressive drugs, initial encounter Status: Acute (9) Anemia of chronic disease: Code(s): D63.8 - Anemia in other chronic diseases classified elsewhere Status: Acute Plan 1. SBO/enteritis/diarrhea/metastatic Colon cancer: Patient has been diagnosed with enteritis and SBO 3 times since January and was February 15- February 21 for small bowel obstruction and enteritis. He was then seen in the emergency room on February 27 at which time he was diagnosed with enteritis and started on a course of Augmentin x7 days. Patient states that following his antibiotics he had been feeling much better in till 4 days prior to this admission when he started having abdominal pain in his lower abdomen which has since resolved and diarrhea. He denies any bowel movement since admission. Stool studies were negative for C diff. CT 03/12/2025 showed small bowel obstruction and enteritis in the right hemiabdomen. During his hospitalization at the end of January his small bowel obstruction was managed without surgical intervention or the need for NG tube. This admission the patient has no GI complaints consistent with small-bowel obstruction as he is having no nausea, vomiting and has been passing gas. He has not had a bowel movement over the past 2 days but denies any abdominal pain or bloating. Surgery is on patient's case and there is no plan at this time for any surgical intervention. Patient had laparoscopic surgery performed 09/06/2024 in peritoneal biopsies were consistent with metastatic colorectal adenocarcinoma no also showed chronic peritonitis. Patient S/P right hemicolectomy and is on Fruzaqla for CRC. * Unclear if patient is truly having small bowel obstruction enteritis versus previously noted chronic pancreatitis. Since we were unable to obtain an MRE I have ordered a CT enterography to further evaluate his abdomen * Stool culture pending, C-Diff was negative 03/12 * patient on Zosyn, continue * Further recommendations to follow CTE results 2. Liver abscess /metastatic liver cancer/ elevated LFT's: CT this admission showing persistent fluid collection or abscess along left lobe liver tip. Patient had ultrasound-guided hepatic abscess drainage with catheter placement performed 08/24/2024 at which time 18 mls fluid was removed and tested positive for Escherichia Coli. Unclear if this fluid collection could be contributing to his LFT elevation as his liver transaminase has been intermittently elevated and was at its highest in August prior to his last abscess drainage. * Surgery on case, further recommendations per them if drainage is indicated at this time * Continue to monitor LFTs 3. Anemia of chronic disease/leukopenia: Patient with chemotherapy-induced leukopenia. Labs today showed WBCs at 3.1, HGB 13, HCT 38, MCV 101, platelets 163. No signs of active GI bleeding. Last colonoscopy performed on February 20 with no findings to explain anemia. * Primary care team to continue monitoring H/H and for signs of GI bleeding Thank you very much for allowing me to share in the care of this very nice patient. This report may have been done utilizing a voice recognition system. Attempts have been made to correct errors. However, there may be uncorrected grammatical, spelling, and recognition errors present. GI Consult Note Consult date/time: 03/14/25 12:41 Reason for consult: recurrent enteritis HPI: Sterling Bryant is a 84 year old male with PMSH of colon cancer s/p right hemicolectomy, AAA, HTN, bilateral inguinal hernia,, history of cardiac catheterization, CCX, CAD, and SBO. He presented to the ER 03/12/2025 with complaints of abdominal pain and diarrhea. Patient was recently admitted to [facility] Feb 15-Feb 21. He was then seen in the ER Feb 27 for abdominal pain and was diagnosed with enteritis and was treated with a 7 day course of Augmentin. Patient states that he was feeling better after the antibiotic course until pain returned and diarrhea returned around 4 days before presenting to the ER. Patient has not had a bowel movement since admission. He states that his abdominal pain has resolved. He states that he is passing flatus. Denies nausea, vomiting, bloating, swallowing difficulty, reflux, regurgitation, appetite loss or unexplained weight loss. Denies hematochezia or melena. ENDOSCOPY HISTORY: EGD: Patient denies prior history of EGD COLONOSCOPY: 02/20/[address] Escobar for small-bowel obstruction and personal history of colon cancer Findings: Normal appearing ileocolonic anastomosis Diverticulosis without evidence of diverticulitis Internal hemorrhoids, non bleeding Laparoscopic surgery performed by Dr. Graham 09/06/2024: 1. Laparoscopic removal of retained gallstone 2. Laparoscopic peritoneal biopsy 3. Laparoscopic adhesiolysis Bx Results: A. Gallstones, removal: - Fragments of fibromuscular and granulation tissue with severe chronic inflammation - Choleliths B. Peritoneal biopsies: - Metastatic colorectal adenocarcinoma - Immunoperoxidase stains with positive controls for the following markers were performed: CDX2 Positive CK20 Positive CK7 Negative - Chronic peritonitis LABS AND STOOL STUDIES: Labs 03/14/2025: WBC 3, Hgb 13, Hct 38, MCV 101, platelets 163 Sodium 138, potassium 3.5, BUN 6, creatinine 0.84, GFR >60, calcium 8.5 Labs 03/12/2025: WBC 5, HGB 14, HCT 42, MCV 101, platelet 190 Sodium 133, potassium 4.8, BUN 25, creatinine 1.19, GFR 58, calcium 9.9 Total bilirubin 1.4, AST 64, ALT 56, alkaline phosphatase 111, albumin 4.6, lipase 47 Stool studies 03/12/2025: C diff negative IMAGING: CT abd/pelvis w/contrast 03/12/2025: IMPRESSION: 1. Small bowel obstruction. 2. Enteritis right hemiabdomen. 3. Persistent fluid collection or abscess along left lobe liver tip. 4. Additional findings per above. CT abd/pelvis w/contrast 02/27/2025: IMPRESSION: 1. Findings possibly representing ileus versus early small bowel obstruction; inflammatory appearing changes involving the small bowel wall and adjacent free fluid could be associated with inflammatory or infectious enteritis. 2. 1.6 cm right lung base nodule. Correlate with dedicated chest CT or PET/CT. CT abd/pelvis w/contrast 02/15/2025: IMPRESSION: 1. Small bowel obstruction with probable transition point near the ileocecal colonic anastomosis in the right upper abdomen. There is nearby small bowel thickening, likely site of transition. 2: Right lower lobe lobulated 1.4 cm mass which is low density measuring 23 Hounsfield units. Given the clinical history of colon carcinoma this likely represents metastatic disease. 3: Nonobstructing left nephrolithiasis. Review of Systems 2 Constitutional: Constitutional: Reports as per HPI ENT: Reports as per HPI Cardiovascular: Cardiovascular: Reports as per HPI, Denies chest pain and Denies dyspnea Respiratory: Respiratory: Denies cough and Denies dyspnea Gastrointestinal: Gastrointestinal: Reports as per HPI Musculoskeletal: Musculoskeletal: Reports as per HPI Integumentary/Breasts: Skin/Breast: Reports as per HPI Psychiatric: Psychiatric: Reports as per HPI Endocrine: Endocrine: Reports no additional endocrine complaints Hematologic/Lymphatic: Hematologic/Lymphatic: Reports no additional hematologic/lymphatic complaints [facility] Past Medical History Medical History (Updated 03/14/25 @ 14:23 by Stephanie Del Rio APRN) History of urinary retention BPH associated with nocturia Colon cancer 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 Leung. Kidney stones Cardiomegaly Aneurysm of infrarenal abdominal aorta Coronary artery disease History of hypertension Idiopathic stricture of urethra Diverticulitis Bilateral inguinal hernia Achilles tendon tear Surgical History Surgical History Hx laparoscopic cholecystectomy 02/09/23 Hx of laparoscopy 09/06/24 1. Laparoscopic removal of retained gallstone 2. Laparoscopic peritoneal biopsy 3. Laparoscopic adhesiolysis Dr. Graham Status post dilation of urethral narrowing 11/03/23 History of cardiac catheterization 07/2022 with findings of coronary artery disease with recommendation of medical therapy due to high risk for PCI, on dual anti-platelet therapy History of lithotripsy (04/15/19) History of partial colectomy (04/09/09) Laparoscopic sigmoid colectomy for sigmoid adenocarcinoma. History of colonoscopy with polypectomy History of bilateral inguinal hernia repair (05/30/16) History of Achilles tendon repair (11/29/14) Right. History of colon resection (04/23/22) Hand assisted laparoscopic right hemicolectomy with ileocolic anastomosis, small bowel resection with side to side anastomosis, and extensive adhesiolysis. Family History Family History Sibling Throat cancer Other Family history non-contributory Social History Social History Social History: Patient smoked 1/2ppd x 20yrs but quit 45yrs ago. Hx of heavy alcohol use when he was young but no alcohol currently. No hx of drug use including IVDU. Lives at home with his . No pets. Surrogate medical decision maker: Theodore Bryant (son). Code status: Full code. Smoking packs per day: 0.5 Smoking cigarettes per day: 10.0 Years smoked: 20 Smoking pack-years: 10.00 Smoking status: Never smoker Second hand tobacco smoke exposure: No Additional smoking assessment comments: SON STATES PT STOPPED SMOKING ABOUT 45YRS AGO Alcohol intake: never Drinks per week: 1 Alcohol use details: RARELY - FEW TIMES A YEAR Substance use: never Substance use type: does not use Lack of Transportation: No Lack of Food: Never True Current Housing: I Have Housing Concerned About Future Housing: No Difficulty Paying Gas/Electric Bills: No Difficulty Paying for Meds: No Currently Unemployed: No Education: Decline to Answer Difficulty w/ Childcare or Family Care: No Living arrangements: with family Additional living arrangements comments: Occupation/Education: retired 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 Spiritual care concerns: No Meds Home Medications and Allergies Home Medications ?Medication ?Instructions ?Recorded ?Confirmed ?Type clopidogrel 75 mg tablet 75 mg PO DAILY 01/20/2302/21 History Held on 02/21/25. Instructions: Resume on 03/23/25. On hold indefinitely per family. Restart if indicated per filter cleaner/PCP. Disregard resume date. metoprolol succinate 50 mg 50 mg PO DAILY 30 days #0 t abs 02/21/25 03/12/25 Rx tablet,extended release 24 hr rosuvastatin 20 mg tablet 20 mg PO DAILY 30 days #0 ta bs 02/21/25 03/12/25 Rx simethicone 80 mg chewable tablet 80 mg PO QID PRN Abd ominal 02/21/25 03/12/25 Rx Cramping 5 days #15 tabs tamsulosin 0.4 mg capsule See Rx Instructions .Route 1 04/24/24 03/12/25 Rx .COMPLEX 30 days #90 caps ondansetron 4 mg disintegrating 4 mg PO Q6H PRN nausea and 02/27/25 03/12/25 Rx tablet vomiting #20 tabs fruquintinib 5 mg capsule 5 mg PO DAILY Chemotherapy 1 05/13/24 03/12/25 History (Fruzaqla) Allergies Allergy/AdvReac Type Severity Reaction Status Date / Time No Known Allergies Allergy Unknown Verified 03/12/25 15:05 Vital Signs Vital Signs - 24 hr 03/13/25 15:11 03/13/25 16:00 03/13/25 20:00 Temperature 97.1 F L 97.5 F L Pulse Rate 52 L 51 L Respiratory Rate 18 18 Blood Pressure 127/77 132/69 Pulse Oximetry 100 100 Oxygen Delivery Room Air 03/14/25 00:00 03/14/25 04:00 03/14/25 08:00 Temperature 97.4 F L 98.1 F 96.6 F L Pulse Rate 47 L 45 L 52 L Respiratory Rate 18 18 16 Blood Pressure 155/71 H 131/75 127/73 Pulse Oximetry 100 98 100 Oxygen Delivery 03/14/25 08:27 03/14/25 08:37 03/14/25 10:03 Temperature 96.5 F L Pulse Rate 53 L 53 L Respiratory Rate 16 Blood Pressure 124/69 Pulse Oximetry 100 Oxygen Delivery Room Air 03/14/25 11:45 Temperature 96.5 F L Pulse Rate 58 L Respiratory Rate 16 Blood Pressure 139/74 Pulse Oximetry 100 Oxygen Delivery Exam 2 Const: General: cooperative, healthy appearing, comfortable, no acute distress and well developed Orientation/consciousness: oriented to person, oriented to place, oriented to time and patient oriented x3 HENMT: Head: normal to inspection, normocephalic and atraumatic Mouth: Yes Normal oral and palatal mucosa present and Yes moist mucous membranes Eyes: General: appearance normal, both eyes and all related structures C onjunctivae: conjunctivae normal Sclera: sclerae normal Pupils: Equal, round and reactive pupils present Neck: Neck: normal visual inspection Chest: Chest palpation & inspection: normal inspection of the chest Resp: Effort & Inspection: normal respiratory effort and able to speak in complete sentences Auscultation: clear to auscultation bilaterally Cardio: Jugular venous distension: no JVD Rate: regular rate Rhythm: r egular rhythm Heart sounds: S1 normal heart sound present and S2 normal heart sound present GI: Inspection: normal to inspection GI Palp: Yes Soft to palpation and Yes No hepatosplenomegaly present Auscultation: normal bowel sounds Rectal Exam: deferred Skin: General skin exam: normal color and no rashes or lesions noted Neuro: General: oriented to person, oriented to place, oriented to time and patient oriented x3 Cranial nerves: Yes Equal, round and reactive pupils present Speech: normal speech Extrem: General: normal to inspection and no clubbing, cyanosis or edema Psych: Appearance: grossly normal and well kempt Affect: normal affect Results Labs 03/14/25 09:13 03/14/25 09:13 Labs: Short CBC 03/14/25 Range/Units 09:13 WBC 3.1 L (4.5-10.0) K/mm3 Hgb 12.8 L (14.0-18.0) g/dL Hct 37.8 L (42.0-52.0) % Plt Count 163 (150-375) k/mm3 [facility] 03/14/25 09:13 Sodium 138 Potassium 3.5 Chloride 107 Carbon Dioxide 25 BUN 6 L D Creatinine 0.84 Glucose 91 Calcium 8.5
--- NOTE | 2025-03-14 13:27 | P.PNIM_ITS ---
Assessment and Plan Assessment and Plan (1) SBO (small bowel obstruction): Code(s): K56.609 - Unspecified intestinal obstruction, unspecified as to partial versus complete obstruction Status: Acute Assessment and Plan: Patient here with diarrhea and abdominal pain x4 days, abdominal pain less severe than yesterday and more so right upper quadrant. CT of the abdomen/pelvis done in the ER during his initial evaluation on 03/12 showed a small bowel obstruction. No current active nausea or vomiting. Per chart review, patient had small-bowel obstruction that he was treated for here at [facility] from 02/15/25 to 02/21/25. Manage conservatively. CT additionally showing concerns for enteritis of the right hemiabdomen. - general surgery consulted - no current active nausea or vomiting, will forego NG tube at this time. If patient develops profuse nausea vomiting, plan for placement - IV fluids - NPO with hypoglycemia protocol and D5/LR maintenance fluids ok to advance diet per surgery surgery signed off (2) Enteritis: Code(s): K52.9 - Noninfective gastroenteritis and colitis, unspecified Status: Acute Assessment and Plan: CT of the abdomen/pelvis from 03/12 that was performed in the emergency departm ent showed enteritis of the right hemiabdomen. No current leukocytosis, vital signs stable. No fever or chills. - check stool cultures and C diff due to recent hospitalization >> C diff negative on 03/12 - noted to have a concurrent fluid collection or abscess along the left lobe liver tip, persistent - started on Zosyn on 03/12 ------- will consult GI per son request as it is pt's 3rd gastritis in the last few days OK to to stop IV fluids as drinking ok and keeping food down (3) Abnormal CT of the abdomen: Code(s): R93.5 - Abnormal findings on diagnostic imaging of other abdominal regions, including retroperitoneum Status: Acute Assessment and Plan: CT of the abdomen/pelvis done in the emergency department on 03/12 showed a persistent fluid collection or abscess along the left lobe liver tip. CT of the abdomen/pelvis from 02/27 noted a small amount of free fluid in the right hemiabdomen extending down the right pericolic gutter. Patient also noted to have ultrasound-guided drainage of a perihepatic abscess back in August of 2024. 18 mL of opaque riuz purulent-appearing fluid obtained at that time. Wound culture at that time grew E coli, pansensitive. - general surgery consulted - started on Zosyn on 03/12 (4) Metastatic colon cancer to liver: Code(s): C18.9 - Malignant neoplasm of colon, unspecified; C78.7 - Secondary malignant neoplasm of liver and intrahepatic bile duct Status: Acute Assessment and Plan: Patient has history of colon cancer with metastases to the liver. No recent imaging showed a right lung lower lobe mass 1.4 cm suspicious for metastasis. Currently follows with Dr Leung ([phone]) for his oncology care. (5) Elevated LFTs: Code(s): R79.89 - Other specified abnormal findings of blood chemistry Status: Acute Assessment and Plan: Total bilirubin 1.4, AST 64, ALT 56 upon admission on 03/12. Has no colon cancer with metastases to the liver. - trend LFTs (6) HTN (hypertension): Qualifiers: Hypertension type: primary hypertension Qualified Code(s): I10 - Essential (primary) hypertension Code(s): I10 - Essential (primary) hypertension Status: Chronic Assessment and Plan: - chronic, currently 144/82, stable. - continue home medications: Metoprolol ER 50 mg daily - monitor Plan Diet: advancing diet GI Prophylaxis: N/a DVT Prophylaxis: SCDs IV fluids: stopped Lines/Tubes: pIV Code Status: Full code Medical Record Review I have reviewed the following patient records and this information was taken into consideration when formulating the assessment and plan.: previous labs Time Spent With Patient Time with patient: 25 - 35 minutes Subjective Date/time seen: 03/14/25 13:27 Interval history: 84 y/o M with PMH of aneurysm of the infrarenal abdominal aorta, colon cancer on chemotherapy and s/p hemicolectomy, diverticulitis, kidney stones, hypertension, hyperlipidemia presents here with abdominal pain and diarrhea. The patient presents here on 03/12 for further evaluation of abdominal pain and diarrhea. HPI obtained to patient report, family report, and chart review. Per the patient's son, the patient has been experiencing watery diarrhea for the past few days. Reporting mild generalized weakness and abdominal pain. He is reporting associated abdominal pain that he describes as right sided, 2-3/10, nonradiating, intermittent, lasts for 30 seconds and would resolve. Pain less severe than yesterday. Denies associated fever, chills, black/tarry stools, bright red blood per rectum. Patient noted to have history of metastatic colon cancer for which he has recently restarted chemotherapy for within the past week. Follows with Oncology in [place], however son is unsure which facility. Reports when he has previously been on chemotherapy he has not had these types of symptoms. Per chart review, patient was admitted here from 02/15/2025 to 02/21/2025 for a small-bowel obstruction that was treated conservatively. He did undergo a colonoscopy on 02/20. Initial VS at presentation: 98.3? F, HR 65, R 18, 113/76, and 100% on RA. ED workup showed: No leukocytosis, no anemia, sodium 133, creatinine 1.19 and GFR 58, total bilirubin 1.4/AST 64, ALT 56. UA had 1+ blood otherwise unremarkable. CT of the abdomen/pelvis showed a small bowel obstruction, enteritis of the right hemiabdomen, persistent fluid collection or abscess along the left lobe liver tip as well as additional findings (see report). pt is seen and examined. he is calm and comfortable, surgery ok with advancing diet. he does not need PT/OT as he is doing well. Son is concerned that this is pt's this gastritis in the last few weeks. Review of Systems Review of Systems: All systems reviewed & are unremarkable except as noted in HPI and below Exam Const: General: comfortable and no acute distress Other: , male, nontoxic appearance HENMT: Face/Nose/Sinus: Normal nares present Mouth: Yes moist mucous membranes Eyes: General: appearance normal, both eyes and all related structures Sclera: sclerae normal Pupils: Equal, round and reactive pupils present EOM: EOMs intact bilaterally Resp: Effort & Inspection: normal respiratory effort Auscultation: clear to auscultation bilaterally Cardio: Rate: regular rate Rhythm: regular rhythm Other: S1-S2 present without murmur, rub, ectopy GI: Auscultation: normal bowel sounds Other: Abdomen soft and nondistended. Tenderness in the right upper quadrant. Hyperactive bowel sounds in the upper quadrants and right lower quadrant. Skin: General skin exam: normal color and no rashes or lesions noted Wounds : no wounds Neuro: Cranial nerves: Yes Equal, round and reactive pupils present Speech: normal speech Motor exam (neuro): 5/5 motor strength present throughout Sensory Exam: normal sensation Other: A&O x4 Extrem: General: normal to inspection Psych: Mental Status: mental status grossly normal Affect: normal affect Other: Good insight and judgment, very pleasant Objective Data Vital Signs Vital Signs: Vital Signs - 24 hr 03/13/25 15:11 03/13/25 16:00 03/13/25 20:00 Temperature 97.1 F L 97.5 F L Pulse Rate 52 L 51 L Respiratory Rate 18 18 Blood Pressure 127/77 132/69 Pulse Oximetry 100 100 Oxygen Delivery Room Air 03/14/25 00:00 03/14/25 04:00 03/14/25 08:00 Temperature 97.4 F L 98.1 F 96.6 F L Pulse Rate 47 L 45 L 52 L Respiratory Rate 18 18 16 Blood Pressure 155/71 H 131/75 127/73 Pulse Oximetry 100 98 100 Oxygen Delivery 03/14/25 08:27 03/14/25 08:37 03/14/25 10:03 Temperature 96.5 F L Pulse Rate 53 L 53 L Respiratory Rate 16 Blood Pressure 124/69 Pulse Oximetry 100 Oxygen Delivery Room Air 03/14/25 11:45 Temperature 96.5 F L Pulse Rate 58 L Respiratory Rate 16 Blood Pressure 139/74 Pulse Oximetry 100 Oxygen Delivery Intake/Output Intake/Output: Intake & Output 03/11/25 03/12/25 03/13/25 03/14/25 23:59 23:59 23:59 23:59 Intake Total 1999 2696.7 1687.5 Balance 1999 2696.7 1687.5 Meds/Results Medications: Active Medications Generic Name Dose Route Start Last Admin Trade Name Freq PRN Reason Stop Dose Admin Acetaminophen 650 mg 03/12/25 14:42 Acetaminophen 325 Mg Tablet PO Q6H PRN Mild Pain (1-3) or Fever Hydrocodone Bitart/Acetaminophen 1 tab 03/12/25 14:42 Hydrocodone/Acetaminophen (*Crx) 5-325 Mg Tablet PO Q6H PRN Pain Rated 4-6 Dextrose 12.5 gm 03/12/25 14:41 Dextrose 50% 25 Gm/50 Ml Syringe IV PUSH PRN PRN Hypoglycemia Protocol Dicyclomine HCl 20 mg 03/12/25 14:42 Dicyclomine Hcl 10 Mg Capsule PO QID PRN Abdominal Cramping Glucagon 1 mg 03/12/25 14:41 Glucagon For Inj 1 Mg Vial IM PRN PRN Hypoglycemia Protocol Glucose 15 gm 03/12/25 14:41 Glucose Oral Gel 15 Gm Of Glucse In 37.5 Gm Tube PO PRN PRN Hypoglycemia Protocol Dextrose 1,000 mls @ 100 mls/hr 03/12/25 14:41 Dextrose 5% 1,000 Ml IVPB PRN PRN Hypoglycemia Protocol Piperacillin Sod/Tazobactam 50 mls @ 100 mls/hr 03/13/25 00:00 03/14/25 11:39 Sod 2.25 gm/ Sodium Chloride IVPB Infused Q6H CORINNE Infusion Metoprolol Succinate 50 mg 03/13/25 09:00 03/14/25 08:37 Metoprolol Succinate Ext Rel 50 Mg Tabcr PO 50 mg DAILY CORINNE Administration Miscellaneous Information 1 each 03/13/25 00:01 Fruzaqla Is Nonform; Can Pt Bring From Home? XX 04/12/25 00:00 CLARIFY CORINNE Non-Formulary Medication 5 mg 03/13/25 09:00 Fruquintinib [Fruzaqla] PO 04/12/25 08:59 DAILY CORINNE Tamsulosin HCl 0.4 mg 03/13/25 09:00 03/14/25 08:37 Tamsulosin Hcl 0.4 Mg Capsule PO 0.4 mg QAM CORINNE Administration Labs Labs: Laboratory Results - last 24 hr 03/13/25 03/14/25 03/14/25 17:26 00:01 00:33 WBC RBC Hgb Hct MCV MCH MCHC RDW Plt Count MPV Sodium Potassium Chloride Carbon Dioxide Anion Gap BUN Creatinine Estim Creat Clear Calc Estimated GFR Glucose POC Capillary Glucose 89 69 88 Calcium 03/14/25 03/14/25 03/14/25 06:17 09:13 11:35 WBC 3.1 L RBC 3.73 L Hgb 12.8 L Hct 37.8 L MCV 101.3 H MCH 34.3 H MCHC 33.9 RDW 14.0 Plt Count 163 MPV 9.4 Sodium 138 Potassium 3.5 Chloride 107 Carbon Dioxide 25 Anion Gap 6 BUN 6 L D Creatinine 0.84 Estim Creat Clear Calc 51 Estimated GFR > 60 Glucose 91 POC Capillary Glucose 99 109 H Calcium 8.5 Quality VTE Prophylaxis VTE prophylaxis: mechanical ordered
[2025-03-15] MEDS: PIPERACILLIN/TAZOBACTAM SOD 2.25 GM in SODIUM CHLORIDE 0.9% IV 50 ML 100 ML IVPB ×2 (00:09→05:08)
[2025-03-15 05:12] VITALS: BP 118/78; PULSE 69; RESP 18; TEMP 36.4; O2SAT 98
[2025-03-15 08:00] VITALS: BP 108/77; PULSE 52; RESP 20; TEMP 36.3; O2SAT 99
[2025-03-15 08:05] VITALS: PULSE 57
[2025-03-15] MEDS: METOPROLOL SUCCINATE EXT REL 50 MG TABCR PO (08:05)
[2025-03-15] MEDS: TAMSULOSIN HCL 0.4 MG CAPSULE PO (08:05)
--- NOTE | 2025-03-15 09:17 | P.PNIM_ITS ---
Assessment and Plan Assessment and Plan (1) SBO (small bowel obstruction): Code(s): K56.609 - Unspecified intestinal obstruction, unspecified as to partial versus complete obstruction Status: Acute Assessment and Plan: Patient here with diarrhea and abdominal pain x4 days, abdominal pain less severe than yesterday and more so right upper quadrant. CT of the abdomen/pelvis done in the ER during his initial evaluation on 03/12 showed a small bowel obstruction. No current active nausea or vomiting. Per chart review, patient had small-bowel obstruction that he was treated for here at [facility] from 02/15/25 to 02/21/25. Manage conservatively. CT additionally showing concerns for enteritis of the right hemiabdomen. - no current active nausea or vomiting, will forego NG tube at this time. If patient develops profuse nausea vomiting, plan for placement - general surgery consulted, no acute intervention required (2) Enteritis: Code(s): K52.9 - Noninfective gastroenteritis and colitis, unspecified Status: Acute Assessment and Plan: CT of the abdomen/pelvis from 03/12 that was performed in the emergency department showed enteritis of the right hemiabdomen. No current leukocytosis, vital signs stable. No fever or chills. - check stool cultures and C diff due to recent hospitalization >> cultures pending, C diff negative on 03/12 - started on Zosyn on 03/12 - GI consulted * Further recommendations to follow CTE results (3) Abnormal CT of the abdomen: Code(s): R93.5 - Abnormal findings on diagnostic imaging of other abdominal regions, including retroperitoneum Status: Acute Assessment and Plan: CT of the abdomen/pelvis done in the emergency department on 03/12 showed a persistent fluid collection or abscess along the left lobe liver tip. CT of the abdomen/pelvis from 02/27 noted a small amount of free fluid in the right hemiabdomen extending down the right pericolic gutter. Patient also noted to have ultrasound-guided drainage of a perihepatic abscess back in August of 2024. 18 mL of opaque ruiz purulent-appearing fluid obtained at that time. Wound culture at that time grew E coli, pansensitive. - general surgery consulted presistent fluid collection or abscess as previously seen on 02/27/25 - started on Zosyn on 03/12 (4) Metastatic colon cancer to liver: Code(s): C18.9 - Malignant neoplasm of colon, unspecified; C78.7 - Secondary malignant neoplasm of liver and intrahepatic bile duct Status: Acute Assessment and Plan: Patient has history of colon cancer with metastases to the liver. On recent imaging showed a right lung lower lobe mass 1.4 cm suspicious for metastasis. Currently follows with Dr Leung ([phone]) for his oncology care. (5) Elevated LFTs: Code(s): R79.89 - Other specified abnormal findings of blood chemistry Status: Acute Assessment and Plan: Total bilirubin 1.4, AST 64, ALT 56 upon admission on 03/12. Has no colon cancer with metastases to the liver. - trend LFTs (6) HTN (hypertension): Qualifiers: Hypertension type: primary hypertension Qualified Code(s): I10 - Essential (primary) hypertension Code(s): I10 - Essential (primary) hypertension Status: Chronic Assessment and Plan: - chronic - continue home medications: Metoprolol ER 50 mg daily - monitor Subjective Date/time seen: 03/15/25 09:17 Interval history: 84 y/o M with PMH of aneurysm of the infrarenal abdominal aorta, colon cancer on chemotherapy and s/p hemicolectomy, diverticulitis, kidney stones, hypertension, hyperlipidemia presents here with abdominal pain and diarrhea. Review of Systems Review of Systems: All systems reviewed & are unremarkable except as noted in HPI and below Exam Narrative: AF General: well nourished, well-developed male in no acute respiratory distress who is nontoxic appearing, lying semi recumbent in bed. HEENT: Normocephalic. Atraumatic. Pupils equal round reactive to light. Extraocular movement intact. Sclera clear and anicteric. Nares patent. No oral lesions. Moist mucous membranes. Tongue is midline. Palate mary symmetrically. No facial asymmetry. Neck: Neck was supple. No dominant adenopathy, thyromegaly or masses. 2+ carotid upstrokes without bruits. Chest: Lungs are clear to auscultation bilaterlly. No wheezes or crackles. CV: Heart was regular rate and rhythm. S1/S2. No murmurs, gallops, or rubs. Abd: Abdomen was soft. Nontender. Nondistended. Postive bowel sounds. No organomegaly or masses. Ext: No clubbing, cyanosis, or edema. 2+ DP pulses bilaterally. Neuro: Patient is alert and oriented x4. Strenth is 5/5 in both upper and lower extremities. Cranial nerves 2-12 are intact. Speech is clear. Psych: Normal nood and affect. Patient is pleasant and cooperative. Skin: Warm and dry. No rashes noted. Objective Data Vital Signs Vital Signs: Vital Signs - 24 hr 03/14/25 10:03 03/14/25 11:45 03/14/25 16:00 Temperature 96.5 F L 96.5 F L 96.1 F L Pulse Rate 53 L 58 L 58 L Respiratory Rate 16 16 16 Blood Pressure 124/69 139/74 157/86 H Pulse Oximetry 100 100 100 03/14/25 21:31 03/14/25 23:55 03/15/25 05:12 Temperature 98.1 F 98.2 F 97.6 F Pulse Rate 53 L 76 69 Respiratory Rate 16 16 18 Blood Pressure 117/79 135/81 118/78 Pulse Oximetry 100 95 98 03/15/25 08:00 03/15/25 08:05 Temperature 97.4 F L Pulse Rate 52 L 57 L Respiratory Rate 20 Blood Pressure 108/77 Pulse Oximetry 99 Intake/Output Intake/Output: Intake & Output 03/12/25 03/13/25 03/14/25 03/15/25 23:59 23:59 23:59 23:59 Intake Total 1999 2696.7 2217.5 800 Balance 1999 2696.7 2217.5 800 Meds/Results Medications: Active Medications Generic Name Dose Route Start Last Admin Trade Name Freq PRN Reason Stop Dose Admin Acetaminophen 650 mg 03/12/25 14:42 Acetaminophen 325 Mg Tablet PO Q6H PRN Mild Pain (1-3) or Fever Hydrocodone Bitart/Acetaminophen 1 tab 03/12/25 14:42 Hydrocodone/Acetaminophen (*Crx) 5-325 Mg Tablet PO Q6H PRN Pain Rated 4-6 Dextrose 12.5 gm 03/12/25 14:41 Dextrose 50% 25 Gm/50 Ml Syringe IV PUSH PRN PRN Hypoglycemia Protocol Dicyclomine HCl 20 mg 03/12/25 14:42 Dicyclomine Hcl 10 Mg Capsule PO QID PRN Abdominal Cramping Glucagon 1 mg 03/12/25 14:41 Glucagon For Inj 1 Mg Vial IM PRN PRN Hypoglycemia Protocol Glucose 15 gm 03/12/25 14:41 Glucose Oral Gel 15 Gm Of Glucse In 37.5 Gm Tube PO PRN PRN Hypoglycemia Protocol Dextrose 1,000 mls @ 100 mls/hr 03/12/25 14:41 Dextrose 5% 1,000 Ml IVPB PRN PRN Hypoglycemia Protocol Piperacillin Sod/Tazobactam 50 mls @ 100 mls/hr 03/13/25 00:00 03/15/25 05:08 Sod 2.25 gm/ Sodium Chloride IVPB 100 mls/hr Q6H CORINNE Administration Metoprolol Succinate 50 mg 03/13/25 09:00 03/15/25 08:05 Metoprolol Succinate Ext Rel 50 Mg Tabcr PO 50 mg DAILY CORINNE Administration Miscellaneous Information 1 each 03/13/25 00:01 Fruzaqla Is Nonform; Can Pt Bring From Home? XX 04/12/25 00:00 CLARIFY CORINNE Non-Formulary Medication 5 mg 03/13/25 09:00 Fruquintinib [Fruzaqla] PO 04/12/25 08:59 DAILY CORINNE Tamsulosin HCl 0.4 mg 03/13/25 09:00 03/15/25 08:05 Tamsulosin Hcl 0.4 Mg Capsule PO 0.4 mg QAM CORINNE Administration Radiology Results: ITS Impressions Abdomen/Pelvis CT 03/14/25 14:34 IMPRESSION: 1. Wall thickening along several loops of small bowel in the right abdomen consistent with an enteritis which could be infectious, inflammatory or less likely ischemic in etiology. 2. Enlarging 1.7 cm right lower lobe nodule and enlarging 2.2 x 2.4 x 1.3 similar hyperdense lesion at the lateral tip of segment 2 of the liver which are both concerning for metastatic disease in this patient with known descending colon cancer post right hemicolectomy. 3. Nonobstructing 6 mm left renal stone and similar sized stone in the dependent bladder. 4. Mild cardiomegaly. 5. 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 Labs Labs: Laboratory Results - last 24 hr 03/14/25 03/14/25 03/15/25 09:13 11:35 00:02 WBC 3.1 L RBC 3.73 L Hgb 12.8 L Hct 37.8 L MCV 101.3 H MCH 34.3 H MCHC 33.9 RDW 14.0 Plt Count 163 MPV 9.4 Sodium 138 Potassium 3.5 Chloride 107 Carbon Dioxide 25 Anion Gap 6 BUN 6 L D Creatinine 0.84 Estim Creat Clear Calc 51 Estimated GFR > 60 Glucose 91 POC Capillary Glucose 109 H 103 Calcium 8.5 03/15/25 05:09 WBC RBC Hgb Hct MCV MCH MCHC RDW Plt Count MPV Sodium Potassium Chloride Carbon Dioxide Anion Gap BUN Creatinine Estim Creat Clear Calc Estimated GFR Glucose POC Capillary Glucose 116 H Calcium
[2025-03-15 10:01] LABS: Hematocrit 40.1 % (42.0-52.0); Hemoglobin 13.0 g/dL (14.0-18.0); Mean Corpuscular HGB Conc 32.4 g/dl (32-36); Mean Corpuscular Hemoglobin 33.9 pg (26-34); Mean Corpuscular Volume 104.7 fl (80-100); Platelet Count Result 157 k/mm3 (150-375); Red Blood Count 3.83 M/mm3 (4.6-6.20); White Blood Count 4.4 K/mm3 (4.5-10.0)
[2025-03-15 10:32] LABS: Alanine Aminotransferase 32 U/L (6-50); Albumin Level 3.9 g/dL (3.5-5.1); Alkaline Phosphatase 72 U/L (38-126); Anion Gap 10 mmol/L (4-12); Aspartate Amino Transferase 37 U/L (17-59); Bilirubin,Total 0.7 mg/dL (0.2-1.3); Blood Urea Nitrogen 8 mg/dL (9-20); Calcium 8.7 mg/dL (8.4-10.2); Carbon Dioxide 20 mmol/L (22-30); Chloride 105 mmol/L (98-107); Estimated CRCL calculation 48 ml/min; Estimated Glomerular Filt Rate > 60; Glucose 94 mg/dL (65-110); Potassium 3.8 mmol/L (3.4-5.0); Sodium 135 mmol/L (137-145); Total Protein 7.5 g/dL (6.3-8.2)
[2025-03-15 10:53] VITALS: O2SAT 98
[2025-03-15 12:00] VITALS: BP 124/72; PULSE 54; RESP 20; TEMP 36.3; O2SAT 100
--- NOTE | 2025-03-15 13:03 | P.DS_ITS ---
DS: Admitting Diagnosis Discharge Date 03/15/2025 Admitting Diagnosis SBO Enteritis Abnormal CT of abdomen Metastatic colon cancer to liver elevated lfts htn DS: Discharge Diagnosis Discharge Diagnosis (1) SBO (small bowel obstruction): Code(s): K56.609 - Unspecified intestinal obstruction, unspecified as to partial versus complete obstruction Status: Acute (2) Enteritis: Code(s): K52.9 - Noninfective gastroenteritis and colitis, unspecified Status: Acute (3) Abnormal CT of the abdomen: Code(s): R93.5 - Abnormal findings on diagnostic imaging of other abdominal regions, including retroperitoneum Status: Acute (4) Metastatic colon cancer to liver: Code(s): C18.9 - Malignant neoplasm of colon, unspecified; C78.7 - Secondary malignant neoplasm of liver and intrahepatic bile duct Status: Acute (5) Elevated LFTs: Code(s): R79.89 - Other specified abnormal findings of blood chemistry Status: Acute (6) HTN (hypertension): Qualifiers: Hypertension type: primary hypertension Qualified Code(s): I10 - Essential (primary) hypertension Code(s): I10 - Essential (primary) hypertension Status: Chronic DS: Summary Hospital Course Reason for hospitalization: SBO Enteritis Abnormal CT of abdomen Metastatic colon cancer to liver elevated lfts htn Hospital Course: 84-year-old male with a past medical history including metastatic colon cancer on oral chemotherapy (fruquintinib), prior right hemicolectomy, recurrent small bowel obstruction, prior hepatic abscess, hypertension, and coronary artery disease, who was admitted on 03/12/2025 for evaluation of abdominal pain and watery diarrhea. On presentation, he was hemodynamically stable without fever, leukocytosis, nausea, or vomiting. Initial CT abdomen/pelvis demonstrated findings concerning for a small bowel obstruction, enteritis involving the right hemiabdomen, and a persistent fluid collection or abscess near the left hepatic lobe. Given his prior SBO managed conservatively and current continued passage of flatus and diarrhea, he was treated nonoperatively with bowel rest, IV fluids, and close monitoring. General Surgery was consulted and determined no acute surgical intervention or NG tube placement was indicated. Broad-spectrum IV antibiotics with piperacillin-tazobactam were initiated due to concern for enteritis and possible recurrent hepatic abscess, with C. difficile testing returning negative and stool cultures without significant growth. Gastroenterology was consulted for recurrent enteritis, and further imaging with CT enterography showed small bowel wall thickening consistent with enteritis but no evidence of a high-grade obstruction. During hospitalization, the patient?s abdominal pain and diarrhea resolved, he tolerated advancement of diet, and bowel function normalized. Prior to discharge discussed patient with GI, Dr. Escobar who was in agreement from a GI standpoint for patient to be discharged, patient no longer requires antibiotics and that he is to keep his scheduled appointment in the office. Liver function tests, which were mildly elevated on admission, improved with supportive care. Leukopenia and mild anemia were attributed to chemotherapy and chronic disease and remained stable without evidence of bleeding or infection. Repeat imaging also demonstrated progression of known metastatic disease to the liver and lung, for which outpatient oncology follow-up was recommended. Per wendys son he has an appointment with oncology in early March. By discharge, the patient was asymptomatic, tolerating a regular diet, ambulating at baseline, and medically stable. Patient discharged home with family in a stable condition. He is to follow-up with his primary care provider in 1 week and keep his scheduled appointments with the oncologist and GI specialist. Status at Discharge Functional status at discharge: independent ambulation Time Spent with Patient Time attestation: Total time spent providing and/or coordinating discharge services: Time spent: Greater than 30 minutes Exam Narrative: AF HR 54 RR 20 SPO2 100 BP 124/72 General: male in no acute respiratory distress who is nontoxic appearing, sitting up in bed. HEENT: Normocephalic. Atraumatic. Extraocular movement intact. Sclera clear and anicteric. No facial asymmetry. Chest: Lungs are clear to auscultation bilaterally. No wheezes or crackles. CV: Heart was regular rate and rhythm. Abd: Abdomen was soft. Nontender. Nondistended. Positive bowel sounds. Ext: No clubbing, cyanosis, or edema. DP pulses bilaterally. Neuro: Patient is alert. Speech is clear. DS: Data Data Completed and Pending Completed studies during hospitalization: abdomen/pelvis ct abdomen/pelvis ct Labs on day of discharge: Labs from last 24 hours 03/15/25 03/15/25 03/15/25 09:54 05:09 00:02 WBC 4.4 L RBC 3.83 L Hgb 13.0 L Hct 40.1 L MCV 104.7 H MCH 33.9 MCHC 32.4 RDW 14.3 Plt Count 157 MPV 9.5 Sodium 135 L Potassium 3.8 Chloride 105 Carbon Dioxide 20 L Anion Gap 10 BUN 8 L Creatinine 0.89 Estim Creat Clear Calc 48 Estimated GFR > 60 Glucose 94 POC Capillary Glucose 116 H 103 Calcium 8.7 Total Bilirubin 0.7 AST 37 ALT 32 Alkaline Phosphatase 72 Total Protein 7.5 Albumin 3.9 Discharge Plan Discharge Attending physician on discharge: Mervin El Consulting providers: Mindi Willoughby; Alexis Carrillo; Yi Roque Discharging Clinician: Yi Roque Anticipated Discharge Date/Time: 03/15/25 13:03 Patient Disposition: Home Activity: as tolerated Diet: as tolerated Discharge Instructions: Discharge disposition: You were treated for?enteritis (inflammation of the intestines)?with an associated?small bowel obstruction?that improved with hospital care. Evaluated by surgery and no acute intervention required for bowel obstruction concern Evaluated by GI, keep scheduled appointment with GI in March Activity * Resume activity as tolerated. * Gentle walking is encouraged to help bowel function. * Avoid heavy lifting or strenuous activity until cleared. Medications * Avoid NSAIDs unless specifically instructed. * Completed antibiotic course in the hospital Hydration * Drink plenty of fluids to prevent dehydration. * Oral rehydration solutions are preferred if stools remain loose. Bowel Function * It may take time for bowel movements to normalize. * Mild bloating or decreased appetite can occur during recovery. When to Seek Immediate Care * Return to the ED or call your provider if you have: * Worsening or severe abdominal pain * Persistent vomiting or inability to keep fluids down * Abdominal distension or bloating that worsens * No bowel movements or inability to pass gas * Fever >=100.4?F (38?C) * Black, bloody, or tarry stools Keep scheduled appointment with oncology in March Monitor blood pressures Take caution while standing, rising, or moving Change positions slowly taking a break between each position change If you standing feel dizzy sit back down and take a break Encouraged to continue with yearly vaccinations Return to the emergency department if he developed sudden shortness of breath, chest pain, nausea, vomiting, upset stomach or intractable diarrhea Return to the emergency department if you develop fever greater than 100.5 Follow-up with the primary care physician within 1-2 weeks Thank you for [facility] for your healthcare needs Patient Instructions: Antibiotic Form, Enteritis (DC) Patient Language: Indonesian Stand Alone Forms: General Discharge Information Follow-up/Referrals: Julian Quevedo MD [Primary Care Provider, Family Practice] - 1 Week Alexis Carrillo MD [Physician, Gastroenterology] - Call for Appointment Discharge Medications: Continued simethicone 80 mg Tablet,Chewable 80 mg PO QID PRN (Reason: Abdominal Cramping) 5 Days Qty: 15 0RF metoprolol succinate 50 mg tablet extended release 24 hr 50 mg PO DAILY 30 Days Qty: 0 0RF tamsulosin 0.4 mg capsule See Rx Instructions .ROUTE .COMPLEX 30 Days Qty: 90 0RF Dose Instruction: TAKE 1 CAPSULE BY MOUTH EVERY MORNING Rx Instructions: TAKE 1 CAPSULE BY MOUTH EVERY MORNING rosuvastatin 20 mg tablet 20 mg PO DAILY 30 Days Qty: 0 0RF ondansetron 4 mg tablet,disintegrating 4 mg PO Q6H PRN (Reason: nausea and vomiting) Qty: 20 0RF Fruzaqla 5 mg capsule 5 mg PO DAILY Patient Comments: pt takes 3 weeks on and 1 week off, this is currently his second week Rx Instructions: 5 mg orally; See External Prescription details Held clopidogrel 75 mg tablet 75 mg PO DAILY Hold Instructions: Resume on 03/23/25. Patient Comments: ON HOLD LAST DOSE 09/01/24 Date of admission: 03/12/25 13:50 Primary Care Provider: Julian Quevedo Admitting Provider: John Alvarado Attending physician on admission: John Alvarado Condition: Stable Hospitalist MIPS Heart Failure (Exclusion) Patient has history of Heart Transplant or Left Ventricular Assistive Device?: No IF YES, STOP HERE Heart Failure (Qualifier) Patient has current or prior documentation of LVEF less than or equal to 40%, or mod/servere depressed LVSF?: No IF NO, STOP HERE
--- NOTE | 2025-03-15 13:58 | WPDGIPROGNO ---
Progress Note: A&P Assessment and Plan (1) Enteritis: Code(s): K52.9 - Noninfective gastroenteritis and colitis, unspecified Status: Acute Assessment and Plan: he is back to his baseline treated with abx, no sign of SBO he is going home today and will follow with oncologist (2) Abnormal CT of the abdomen: Code(s): R93.5 - Abnormal findings on diagnostic imaging of other abdominal regions, including retroperitoneum Status: Acute (3) Metastatic colon cancer to liver: Code(s): C18.9 - Malignant neoplasm of colon, unspecified; C78.7 - Secondary malignant neoplasm of liver and intrahepatic bile duct Status: Acute (4) Anemia of chronic disease: Code(s): D63.8 - Anemia in other chronic diseases classified elsewhere Status: Acute Subjective Date/time seen: 03/15/25 13:58 Interval history: doing better, no pain and tolerating diet son at bedside Review of Systems Review of Systems: All systems reviewed & are unremarkable except as noted in HPI and below Exam Const: General: comfortable and no acute distress Other: , male, nontoxic appearance HENMT: Face/Nose/Sinus: Normal nares present Mouth: Yes moist mucous membranes Eyes: General: appearance normal, both eyes and all related structures Sclera: sclerae normal Neck: Neck: supple Resp: Effort & Inspection: normal respiratory effort Auscultation: clear to auscultation bilaterally Cardio: Rate: regular rate Rhythm: regular rhythm GI: GI Palp: Yes Soft to palpation and No Tenderness to palpation present (GI) Auscultation: normal bowel sounds Skin: General skin exam: normal color and no rashes or lesions noted Wounds: no wounds Neuro: Cranial nerves: Yes Equal, round and reactive pupils present Speech: normal speech Motor exam (neuro): 5/5 motor strength present throughout Sensory Exam: normal sensation Other: A&O x4 Extrem: General: normal to inspection Psych: Mental Status: mental status grossly normal Affect: normal affect Other: Good insight and judgment, very pleasant Objective Data Vital Signs Vital Signs: Vital Signs - 24 hr 03/14/25 16:00 03/14/25 21:31 03/14/25 23:55 Temperature 96.1 F L 98.1 F 98.2 F Pulse Rate 58 L 53 L 76 Respiratory Rate 16 16 16 Blood Pressure 157/86 H 117/79 135/81 Pulse Oximetry 100 100 95 Oxygen Delivery 03/15/25 05:12 03/15/25 08:00 03/15/25 08:05 Temperature 97.6 F 97.4 F L Pulse Rate 69 52 L 57 L Respiratory Rate 18 20 Blood Pressure 118/78 108/77 Pulse Oximetry 98 99 Oxygen Delivery 03/15/25 10:53 03/15/25 12:00 Temperature 97.4 F L Pulse Rate 54 L Respiratory Rate 20 Blood Pressure 124/72 Pulse Oximetry 98 100 Oxygen Delivery Room Air Intake/Output Intake/Output: Intake & Output 03/12/25 03/13/25 03/14/25 03/15/25 23:59 23:59 23:59 23:59 Intake Total 1999 2696.7 2217.5 1280 Balance 1999 2696.7 2217.5 1280 Meds/Results Radiology Results: ITS Impressions Abdomen/Pelvis CT 03/14/25 14:34 IMPRESSION: 1. Wall thickening along several loops of small bowel in the right abdomen consistent with an enteritis which could be infectious, inflammatory or less likely ischemic in etiology. 2. Enlarging 1.7 cm right lower lobe nodule and enlarging 2.2 x 2.4 x 1.3 similar hyperdense lesion at the lateral tip of segment 2 of the liver which are both concerning for metastatic disease in this patient with known descending colon cancer post right hemicolectomy. 3. Nonobstructing 6 mm left renal stone and similar sized stone in the dependent bladder. 4. Mild cardiomegaly. 5. 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 Labs Labs: Laboratory Results - last 24 hr 03/15/25 03/15/25 03/15/25 00:02 05:09 09:54 WBC 4.4 L RBC 3.83 L Hgb 13.0 L Hct 40.1 L MCV 104.7 H MCH 33.9 MCHC 32.4 RDW 14.3 Plt Count 157 MPV 9.5 Sodium 135 L Potassium 3.8 Chloride 105 Carbon Dioxide 20 L Anion Gap 10 BUN 8 L Creatinine 0.89 Estim Creat Clear Calc 48 Estimated GFR > 60 Glucose 94 POC Capillary Glucose 103 116 H Calcium 8.7 Total Bilirubin 0.7 AST 37 ALT 32 Alkaline Phosphatase 72 Total Protein 7.5 Albumin 3.9
== END 2025-03-15 13:45 | disposition home or self-care (01) | DRG 392 ==
LOC: ANHED 10:57 → ANH3MEDSUR 14:29
PROVIDERS: Nurse Practitioner; Student in an Organized Health Care Education/Training Program; Admitting Provider Family Medicine; Emergency Provider Student in an Organized Health Care Education/Training Program; PCP Family Medicine; Visit Provider Student in an Organized Health Care Education/Training Program
DX: K52.9 Noninfective gastroenteritis and colitis, unspecified (principal); C18.9 Malignant neoplasm of colon, unspecified; C78.00 Secondary malignant neoplasm of unspecified lung; C78.7 Secondary malignant neoplasm of liver and intrahepatic bile duct; I10 Essential (primary) hypertension; I25.10 Atherosclerotic heart disease of native coronary artery without angina pectoris; N40.1 Benign prostatic hyperplasia with lower urinary tract symptoms; R35.1 Nocturia; I71.43 Infrarenal abdominal aortic aneurysm, without rupture; D63.8 Anemia in other chronic diseases classified elsewhere; D64.81 Anemia due to antineoplastic chemotherapy; Z87.891 Personal history of nicotine dependence; Z90.49 Acquired absence of other specified parts of digestive tract
CPT/HCPCS: 36415; 74177; 80048; 80053; 81001; 82948; 83690; 85025; 85027; 87045; 87046; 87427; 87493; 96360; 97161; 97165; 99285; A9270; J2543; J7030; J7121; Q9967